=== PATIENT | male | born 1985 | race Caucasian/White ===

== ENCOUNTER → 2017-04-22 | Outpatient (CLI) | payer OTHER ==
--- NOTE | 2017-04-22 09:48 | US ---
EXAMINATION TYPE: US liver DATE OF EXAM: 04/22/2017 COMPARISON: NONE CLINICAL HISTORY: R94.5 ABN LIVER FUNCTIONS. EXAM MEASUREMENTS: Liver Length: 17.7 cm Gallbladder Wall: 0.2 cm CBD: 0.3 cm Right Kidney: 11.0 x 5.9 x 5.4 cm Pancreas: Obscured by bowel gas Liver: wnl Gallbladder: wnl Evidence for sonographic Goldberg's sign: no CBD: wnl Right Kidney: wnl The pancreas is obscured by overlying bowel gas on images saved. Visualized liver is unremarkable. Ga llbladder shows no shadowing mobile gallstones. IMPRESSION: No worrisome intrahepatic mass or intrahepatic ductal dilatation is seen.
== END | disposition home or self-care (01) ==
LOC: RADUSWWP 09:20
PROVIDERS: ATTEND Internal Medicine
DX: R94.5 Abnormal results of liver function studies (principal)
CPT/HCPCS: 76705

== ENCOUNTER → 2017-08-01 | Outpatient (CLI) | payer SELFPAY | END | disposition home or self-care (01) | LOC: RADXRMAIN 13:36 | PROVIDERS: ATTEND Internal Medicine Endocrinology, Diabetes & Metabolism | DX: Z53.9 Procedure and treatment not carried out, unspecified reason (principal) ==

== ENCOUNTER 2018-01-16 10:13 | Emergency (ER) | payer OTHER ==
[2018-01-16] MEDS ORDERED: ACETAMINOPHEN TAB 500 MG TAB PO STA (10:37)
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
--- NOTE | 2018-01-16 11:35 | XR ---
EXAMINATION TYPE: XR shoulder complete LT , 3 VIEWS DATE OF EXAM ORDERED: 01/16/2018 HISTORY: Pain. COMPARISON: None. FINDINGS: No fracture, dislocation or other acute osseous lesion is seen. IMPRESSION: NO ACUTE OSSEOUS LESION.
--- NOTE | 2018-01-16 11:35 | XR ---
EXAMINATION TYPE: XR chest 2V DATE OF EXAM ORDERED: 01/16/2018 HISTORY: Pain. REFERENCE: None. FINDINGS: The lungs are clear. Pleural spaces are clear. Heart size is normal. IMPRESSION: NORMAL CHEST.
--- NOTE | 2018-01-16 11:36 | XR ---
EXAMINATION TYPE: XR pelvis AP view , ONE VIEW DATE OF EXAM ORDERED: 01/16/2018 HISTORY: Pain. COMPARISON: None. FINDINGS: Osseous structures about the pelvis are normal. No fracture or dislocation is seen. Both h ip joints are maintained. There is some vascular calcification the left hemipelvis. IMPRESSION: NO ACUTE OSSEOUS LESION.
[2018-01-16 12:41] LABS: Glucose,Whole Blood 113 mg/dL (75-99)
[2018-01-16 13:37] VITALS: BP 100/58; PULSE 94; RESP 20; TEMP 97.8
== END 2018-01-16 13:43 | disposition home or self-care (01) ==
LOC: EC 10:13
DX: S13.4XXA Sprain of ligaments of cervical spine, initial encounter (principal); R07.9 Chest pain, unspecified; M25.512 Pain in left shoulder; E10.40 Type 1 diabetes mellitus with diabetic neuropathy, unspecified; F17.200 Nicotine dependence, unspecified, uncomplicated; Z88.0 Allergy status to penicillin; V43.63XA Car passenger injured in collision with pick-up truck in traffic accident, initial encounter; Y92.89 Other specified places as the place of occurrence of the external cause
CPT/HCPCS: 36415; 71046; 72170; 99284

== ENCOUNTER 2018-03-17 01:53 | Inpatient (IN) | payer OTHER ==
[2018-03-17] MEDS ORDERED: SODIUM CHLORIDE 0.9% 2,000 ML IV STA (02:19)
[2018-03-17 02:36] LABS: Glucose,Whole Blood >600 mg/dL (75-99)
[2018-03-17 03:01] LABS: ALT 33 U/L (21-72); AST 32 U/L (17-59); Alkaline Phosphatase 127 U/L (38-126); Blood Urea Nitrogen 38 mg/dL (9-20); Calcium 9.6 mg/dL (8.4-10.2); Chloride 83 mmol/L (98-107); Lipase 11 U/L (23-300); Magnesium 2.3 mg/dL (1.6-2.3); Sodium 128 mmol/L (137-145); Total Bilirubin 0.8 mg/dL (0.2-1.3)
--- NOTE | 2018-03-17 03:02 | ED ---
Nausea/Vomiting/Diarrhea HPI - General Chief complaint: Nausea/Vomiting/Diarrhea Stated complaint: Nausea, Vomiting Time Seen by Provider: 03/17/18 02:16 Source: EMS Mode of arrival: EMS Limitations: no limitations - History of Present Illness Initial comments: Paxton is a 32-year-old insulin-dependent type 1 diabetic male who presents the ER today for evaluation of 2 days of nausea, vomiting and diarrhea. Upon arrival Paxton is lying in position clearly uncomfortable and most of the history is provided by his and mother at bedside. The patient was diagnosed as type 1 insulin-dependent diabetic at the age of 12. He is very well controlled and usually wears an insulin pump. Apparently 2 days ago the patient's cousin came to visit and he was experiencing an acute GI illness. Multiple family members subsequently developed similar symptoms including Paxton. Paxton reports he is nauseated and vomiting all day yesterday unable to keep any solids or liquids down. Today while vomiting his insulin pump became disconnected but he was not concerned because he has not eaten in over 36 hours. Throughout the evening he progressively worsened. He denies, have vomiting, diarrhea. He continued to be unable to hold down any by mouth intake. Family became concerned because he does have a history of DKA most recently was over a year and half ago so they called 911 for transport to the hospital. Upon EMS arrival the patient [id number] blood glucose was over 500. - Related Data Previous Rx's Medication Instructions Recorded Hydrocodone/Acetaminophen [[place] 1 each PO Q6HR PRN #10 tab 07/27/14 5-325] Cephalexin [Keflex] 500 mg PO Q6HR #20 cap 07/28/14 Ibuprofen [Motrin] 800 mg PO TID #21 tab 01/16/18 Allergies Allergy/AdvReac Type Severity Reaction Status Date / Time Penicillins Allergy Unknown Verified 03/17/18 02:13 Review of Systems ROS Statement: Those systems with pertinent positive or pertinent negative responses have been documented in the HPI. ROS Other: All systems not noted in ROS Statement are negative. Past Medical History Past Medical History: Diabetes Mellitus, Hypertension History of Any Multi-Drug Resistant Organisms: None Reported Past Surgical History: Tonsillectomy Additional Past Surgical History / Comment(s): facial reconstruction, Past Psychological History: Anxiety, Bipolar, Depression Smoking Status: Current every day smoker Past Alcohol Use History: None Reported Past Drug Use History: None Reported General Exam - General Exam Comments Initial Comments: Physical Exam GENERAL: Patient appears uncomfortable, is lying in position, rapid deep breathing consistent with [place] respirations, diaphoretic HENT: Normocephalic, Atraumatic. EYES: PERRL, EOMI PULMONARY: [place] respirations CARDIOVASCULAR: Tachycardic, regular ABDOMEN: Soft and nontender with normal bowel sounds. SKIN: Diaphoretic : Deferred NEUROLOGIC: Patient is alert and oriented x3. Moving all extremities spontaneously MUSCULOSKELETAL: Normal extremities with adequate strength and full range of motion. No lower extremity swelling or edema. No calf tenderness. PSYCHIATRIC: Normal psychiatric evaluation. Limitations: no limitations Limitations: no limitations Course Vital Signs 03/17/18 02:10 Temperature 98.3 F Pulse Rate 126 H Respiratory 18 Rate Blood Pressure 129/76 O2 Sat by Pulse 100 Oximetry Medical Decision Making - Medical Decision Making The patient was seen and evaluated immediately upon arrival to the emergency department, given the patient's history and physical exam I have a significant concern that the patient is in DKA Initial [id number] glucose is greater than 600 DKA labs were ordered 2 L IV fluid bolus was ordered Labs resulted, consistent with DKA. Patient has pseudohyponatremia, elevated anion gap with a gap of greater than 40, glucose of greater than 800, bicarb and detectable An additional 1 L bolus was ordered as well as fluids at 200 mL/h Insulin bolus and infusion were ordered DKA order set was ordered VBG did reveal a pH of 7.1 pCO2 of 18 and bicarb of 6 which again is consistent with the patient's diagnosis of DKA Patient care was discussed with the process development chemist Dr. Perez who agrees with plan for admission to the ICU for DKA - Lab Data Result diagrams: 03/17/18 02:35 03/17/18 02:35 Lab Results 03/17/18 03/17/18 03/17/18 Range/Units 02:27 02:35 02:35 WBC 25.3 H (3.8-10.6) k/uL RBC 5.20 (4.30-5.90) m/uL Hgb 15.5 (13.0-17.5) gm/dL Hct 53.9 H (39.0-53.0) % MCV 103.7 H (80.0-100.0) fL MCH 29.7 (25.0-35.0) pg MCHC 28.7 L (31.0-37.0) g/dL RDW 13.4 (11.5-15.5) % Plt Count 285 (150-450) k/uL Neutrophils % 91 % Lymphocytes % 3 % Monocytes % 5 % Eosinophils % 0 % Basophils % 0 % Neutrophils # 23.0 H (1.3-7.7) k/uL Lymphocytes # 0.8 L (1.0-4.8) k/uL Monocytes # 1.3 H (0-1.0) k/uL Eosinophils # 0.0 (0-0.7) k/uL Basophils # 0.1 (0-0.2) k/uL Hypochromasia Marked Macrocytosis Slight VBG pH (7.31-7.41) VBG pCO2 (37-51) mmHg VBG HCO3 (24-28) mmol/L Sodium 128 L (137-145) mmol/L Potassium 6.3 H* (3.5-5.1) mmol/L Chloride 83 L (98-107) mmol/L Carbon Dioxide <5 L* (22-30) mmol/L Anion Gap mmol/L BUN 38 H (9-20) mg/dL Creatinine 1.68 H (0.66-1.25) mg/dL Est GFR (CKD-EPI)AfAm 61 (>60 ml/min/1.73 sqM) Est GFR (CKD-EPI)NonAf 53 (>60 ml/min/1.73 sqM) Glucose 821 H* (74-99) mg/dL POC Glucose (mg/dL) >600 H (75-99) mg/dL POC Glu Chainstitch Felled Seam Operator ID Siria Lanza Osmolality 334 H* (280-301) mosm/kg Calcium 9.6 (8.4-10.2) mg/dL Magnesium 2.3 (1.6-2.3) mg/dL Total Bilirubin 0.8 (0.2-1.3) mg/dL AST 32 (17-59) U/L ALT 33 (21-72) U/L Alkaline Phosphatase 127 H (38-126) U/L Total Protein 8.0 (6.3-8.2) g/dL Albumin 5.0 (3.5-5.0) g/dL Lipase 11 L (23-300) U/L Urine Color Urine Appearance (Clear) Urine pH (5.0-8.0) Ur Specific [place] (1.001-1.035) Urine Protein (Negative) Urine Glucose (UA) (Negative) Urine Ketones (Negative) Urine Blood (Negative) Urine Nitrite (Negative) Urine Bilirubin (Negative) Urine Urobilinogen (<2.0) mg/dL Ur Leukocyte Esterase (Negative) Acetone, Qual Positive (Negative) 03/17/18 03/17/18 Range/Units 03:36 04:04 WBC (3.8-10.6) k/uL RBC (4.30-5.90) m/uL Hgb (13.0-17.5) gm/dL Hct (39.0-53.0) % MCV (80.0-100.0) fL MCH (25.0-35.0) pg MCHC (31.0-37.0) g/dL RDW (11.5-15.5) % Plt Count (150-450) k/uL Neutrophils % % Lymphocytes % % Monocytes % % Eosinophils % % Basophils % % Neutrophils # (1.3-7.7) k/uL Lymphocytes # (1.0-4.8) k/uL Monocytes # (0-1.0) k/uL Eosinophils # (0-0.7) k/uL Basophils # (0-0.2) k/uL Hypochromasia Macrocytosis VBG pH 7.18 L* (7.31-7.41) VBG pCO2 18 L* (37-51) mmHg VBG HCO3 6 L* (24-28) mmol/L Sodium (137-145) mmol/L Potassium (3.5-5.1) mmol/L Chloride (98-107) mmol/L Carbon Dioxide (22-30) mmol/L Anion Gap mmol/L BUN (9-20) mg/dL Creatinine (0.66-1.25) mg/dL Est GFR (CKD-EPI)AfAm (>60 ml/min/1.73 sqM) Est GFR (CKD-EPI)NonAf (>60 ml/min/1.73 sqM) Glucose (74-99) mg/dL POC Glucose (mg/dL) (75-99) mg/dL POC Glu Chainstitch Felled Seam Operator ID Osmolality ([id number]) mosm/kg Calcium (8.4-10.2) mg/dL Magnesium (1.6-2.3) mg/dL Total Bilirubin (0.2-1.3) mg/dL AST (17-59) U/L ALT (21-72) U/L Alkaline Phosphatase (38-126) U/L Total Protein (6.3-8.2) g/dL Albumin (3.5-5.0) g/dL Lipase (23-300) U/L Urine Color Colorless Urine Appearance Clear (Clear) Urine pH 5.0 (5.0-8.0) Ur Specific [place] 1.016 (1.001-1.035) Urine Protein Negative (Negative) Urine Glucose (UA) 4+ H (Negative) Urine Ketones 3+ H (Negative) Urine Blood Negative (Negative) Urine Nitrite Negative (Negative) Urine Bilirubin Negative (Negative) Urine Urobilinogen <2.0 (<2.0) mg/dL Ur Leukocyte Esterase Negative (Negative) Acetone, Qual (Negative) - EKG Data -: EKG Interpreted by Me EKG Comments: EKG was obtained at 2:23 AM, rate is 127, rhythm is sinus tach, Critical Care Time Critical Care Time: Yes Total Critical Care Time: 30 Disposition Clinical Impression: DKA, type 1, KAREEN (acute kidney injury), Nausea, vomiting and diarrhea Disposition: ADMITTED IP TO THIS [facility] Condition: Serious Referrals: Yasmeen Parrish MD [Primary Care Provider] - 1-2 days
[2018-03-17 03:11] LABS: Glucose 821 mg/dL (74-99); Potassium 6.3 mmol/L (3.5-5.1)
[2018-03-17 03:12] LABS: Carbon Dioxide <5 mmol/L (22-30)
[2018-03-17] MEDS ORDERED: ONDANSETRON 4 MG/2 ML VIAL IVP STA ×2 (03:12→07:06)
[2018-03-17] MEDS ORDERED: INSULIN REGULAR BOLUS (FROM DRIP BAG) IV ONE (03:15)
[2018-03-17] MEDS ORDERED: SODIUM CHLORIDE 0.9% 1,000 ML IV ONE (03:17)
[2018-03-17 03:43] LABS: Basophils # (A) 0.1 k/uL (0-0.2); Basophils % (A) 0 %; Eosinophils % (A) 0 %; HCT 53.9 % (39.0-53.0); HGB 15.5 gm/dL (13.0-17.5); Hypochromasia Marked; Lymphocytes # (A) 0.8 k/uL (1.0-4.8); Lymphocytes % (A) 3 %; MCH 29.7 pg (25.0-35.0); MCHC 28.7 g/dL (31.0-37.0); MCV 103.7 fL (80.0-100.0); Macrocytosis Slight; Mean Platelet Volume 10.4; Monocytes # (A) 1.3 k/uL (0-1.0); Monocytes % (A) 5 %; Neutrophils % (A) 91 %; Platelet Count 285 k/uL (150-450); RDW 13.4 % (11.5-15.5); WBC 25.3 k/uL (3.8-10.6)
[2018-03-17] MEDS ORDERED: MORPHINE SULFATE 4 MG/ML SYRINGE IVP STA (03:46)
[2018-03-17] MEDS: INSULIN REGULAR 100 UNIT in SODIUM CHLORIDE 0.9% 100 ML IV SCH ×2 (03:54→14:15)
[2018-03-17 04:00] LABS: Appearance,Urine Clear (Clear); Bilirubin,Urine Negative (Negative); Blood,Urine Negative (Negative); Color,Urine Colorless; Glucose,Urine (UA) 4+ (Negative); Leukocyte Esterase,Urine Negative (Negative); Nitrite,Urine Negative (Negative); Protein,Urine Negative (Negative); Specific Gravity,Urine 1.016 (1.001-1.035); Urobilinogen,Urine <2.0 mg/dL (<2.0)
[2018-03-17 04:26] LABS: VBG PH 7.18 (7.31-7.41)
[2018-03-17 04:29] LABS: Ketones,Urine 3+ (Negative)
[2018-03-17 04:50] LABS: Glucose,Whole Blood >600 mg/dL (75-99)
[2018-03-17] MEDS: SODIUM CHLORIDE 0.9% 1,000 ML IV SCH ×2 (05:27→10:35)
[2018-03-17 05:54] LABS: Glucose,Whole Blood 549 mg/dL (75-99)
[2018-03-17 06:50] LABS: Glucose,Whole Blood 440 mg/dL (75-99)
[2018-03-17 07:16] LABS: Phosphorus 3.2 mg/dL (2.5-4.5); Potassium 4.5 mmol/L (3.5-5.1)
[2018-03-17 08:01] LABS: Glucose,Whole Blood 367 mg/dL (75-99)
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
[2018-03-17] MEDS ORDERED: NALOXONE 0.4 MG/ML 1 ML VIAL IV PRN (08:47)
[2018-03-17 09:04] LABS: Glucose,Whole Blood 306 mg/dL (75-99)
[2018-03-17] MEDS: HEPARIN SODIUM,PORCINE 5,000 UNIT/ML 1 ML VIAL SQ SCH ×3 (09:24→23:45)
[2018-03-17] MEDS: PANTOPRAZOLE 40 MG/10 ML VIAL IV SCH (09:24)
[2018-03-17] MEDS ORDERED: INFLUENZA VACCINE (6 MOS+) 60 MCG/0.5 ML SYRINGE IM ONE (09:39)
[2018-03-17 10:17] LABS: Glucose,Whole Blood 256 mg/dL (75-99)
[2018-03-17] MEDS: D5-0.45% NACL WITH KCL 20MEQ/L 1,000 ML IV SCH ×4 (10:18→22:40)
[2018-03-17 11:24] LABS: Glucose,Whole Blood 217 mg/dL (75-99)
[2018-03-17 12:01] LABS: Anion Gap 15 mmol/L; Blood Urea Nitrogen 31 mg/dL (9-20); Carbon Dioxide 18 mmol/L (22-30); Chloride 104 mmol/L (98-107); Glucose 241 mg/dL (74-99); Phosphorus 2.2 mg/dL (2.5-4.5); Potassium 4.2 mmol/L (3.5-5.1); Sodium 137 mmol/L (137-145)
[2018-03-17 12:07] LABS: Basophils % (A) 0 %; Eosinophils % (A) 0 %; HCT 41.1 % (39.0-53.0); HGB 13.2 gm/dL (13.0-17.5); Lymphocytes # (A) 1.3 k/uL (1.0-4.8); Lymphocytes % (A) 6 %; MCH 29.8 pg (25.0-35.0); MCHC 32.2 g/dL (31.0-37.0); Mean Platelet Volume 8.5; Monocytes # (A) 1.3 k/uL (0-1.0); Monocytes % (A) 6 %; Neutrophils # (A) 20.7 k/uL (1.3-7.7); Neutrophils % (A) 88 %; Platelet Count 278 k/uL (150-450); RBC 4.45 m/uL (4.30-5.90); RDW 13.2 % (11.5-15.5); WBC 23.4 k/uL (3.8-10.6)
[2018-03-17 12:09] LABS: Glucose,Whole Blood 198 mg/dL (75-99)
[2018-03-17] MEDS ORDERED: SODIUM PHOSPHATE 10 MMOL in SODIUM CHLORIDE 0.9% 250 ML IVPB ONE (12:09)
[2018-03-17] MEDS ORDERED: Phosphorus Replacement Protoco 1 EACH MISC MISCELLANE PRN (12:09)
[2018-03-17 12:12] LABS: MCV 92.3 fL (80.0-100.0)
[2018-03-17 12:59] LABS: Glucose,Whole Blood 180 mg/dL (75-99)
[2018-03-17] MEDS ORDERED: SODIUM GLYCEROPHOSPHATE 10 MMOL in SODIUM CHLORIDE 0.9% 250 ML IV ONE (13:00)
--- NOTE | 2018-03-17 13:36 | XR ---
EXAMINATION TYPE: XR KUB portable DATE OF EXAM: 03/17/2018 12:37 PM CLINICAL HISTORY: 01/16/2018 TECHNIQUE: Single supine KUB image of the abdomen is obtained. COMPARISON: None. FINDINGS: Scattered gas is seen in non-distended small bowel loops. Gas and fecal material is seen in non-distended colon. There is no visceromegaly, pneumoperitoneum, or abnormal calcification apprecia can. The lung bases are clear and the osseous structures are intact. IMPRESSION: Overall nonobstructive bowel gas pattern.
[2018-03-17] MEDS: ONDANSETRON 4 MG/2 ML VIAL IVP PRN ×2 (13:59→21:41)
[2018-03-17 14:14] LABS: Glucose,Whole Blood 148 mg/dL (75-99)
[2018-03-17 14:37] VITALS: BMI 21.9
[2018-03-17 14:40] LABS: Anion Gap 7 mmol/L; Blood Urea Nitrogen 26 mg/dL (9-20); Carbon Dioxide 23 mmol/L (22-30); Chloride 107 mmol/L (98-107); Glucose 150 mg/dL (74-99); Sodium 137 mmol/L (137-145)
[2018-03-17] MEDS ORDERED: INSULIN NPH 300 UNIT/3 ML VIAL SQ ONE (15:11)
[2018-03-17 15:12] LABS: Glucose,Whole Blood 123 mg/dL (75-99)
[2018-03-17] MEDS ORDERED: traMADol 50 MG TAB PO PRN (15:18)
[2018-03-17] MEDS ORDERED: IPRATROPIUM-ALBUTEROL 3 ML NEB INHALATION PRN (15:25)
[2018-03-17 15:56] LABS: Glucose,Whole Blood 112 mg/dL (75-99)
[2018-03-17] MEDS: GABAPENTIN 100 MG CAP PO SCH ×2 (16:19→21:18)
[2018-03-17 17:03] LABS: Glucose,Whole Blood 132 mg/dL (75-99)
[2018-03-17 17:50] LABS: Hemoglobin A1C 11.9 % (4.0-6.0)
[2018-03-17 17:58] LABS: Glucose,Whole Blood 144 mg/dL (75-99)
[2018-03-17] MEDS ORDERED: MORPHINE SULFATE 2 MG/ML SYRINGE IVP STA (18:42)
[2018-03-17] MEDS: INSULIN ASPART 100 UNIT/ML 1 ML 10 ML VIAL SQ SCH ×3 (18:49→21:17)
[2018-03-17 19:14] LABS: Glucose,Whole Blood 195 mg/dL (75-99)
[2018-03-17 20:16] LABS: Glucose,Whole Blood 208 mg/dL (75-99)
[2018-03-17] MEDS: AMITRIPTYLINE HCL 10 MG TAB PO SCH (20:27)
[2018-03-17] MEDS: INSULIN DETEMIR 100 UNIT/ML 10 ML VIAL SQ SCH (20:29)
[2018-03-17 21:28] LABS: Glucose,Whole Blood 232 mg/dL (75-99)
[2018-03-17] MEDS: KETOROLAC 30 MG/ML 1 ML VIAL IVP PRN (21:41)
--- NOTE | 2018-03-17 22:20 | P.HPIM ---
History of Present Illness This is a pleasant 52 years old male with past medical history of diabetes mellitus, insulin-dependent which is type I. Hypertension. And renal disease. Presents because of nausea vomiting and diarrhea 2 days duration and diffuse abdominal pain, mainly in the epigastric region. pt found to have diabetic ketoacidosis. he was admitted to the icu and started on insulin drip as per protocol , this mornign pt was still complaining from some abd pain . some nausea and vomiting however his , however he looks more calm , less distress, and better hydrated , his anion gap has closed and he was started on diet. pt states he was on insulin pump but it stopped working during this two days of sickness , he thinks it might be displaced while asleep . Review of Systems CONSTITUTIONAL: No fever, no malaise, no fatigue. HEENT: No recent visual problems or hearing problems. Denied any sore throat. CARDIOVASCULAR: No orthopnea, PND, no palpitations, no syncope. PULMONARY: No shortness of breath, no cough, no hemoptysis. GASTROINTESTINAL: No diarrhea, no nausea, no vomiting, no abdominal pain. Normoactive bowel sounds. NEUROLOGICAL: No headaches, no weakness, no numbness. HEMATOLOGICAL: Denies any bleeding or petechiae. GENITOURINARY: Denies any burning micturition, frequency, or urgency. MUSCULOSKELETAL/RHEUMATOLOGICAL: Denies any joint pain, swelling, or any muscle pain. ENDOCRINE: Denies any polyuria or polydipsia. Past Medical History Past Medical History: Diabetes Mellitus, Hypertension, Renal Disease Additional Past Medical History / Comment(s): Pt had recent upper respiratory infection and was on antibiotics/steroids for this, IDDM type I, past DKA about 1.5 yrs ago, neuropathy bilateral legs and runs up L side of body/L arm, hand and L side of face, L eye diabetic retinopathy, diabetic nephropathy-elevated urine protein, benign nasal polyp History of Any Multi-Drug Resistant Organisms: None Reported Past Surgical History: Tonsillectomy Additional Past Surgical History / Comment(s): Closed reduction nasal bone fracture with fixation septoplasty/open reduction L malary zygomatic arch fracture. Past Anesthesia/Blood Transfusion Reactions: No Reported Reaction Smoking Status: Current every day smoker - Past Family History Father Family Medical History: No Reported History Additional Family Medical History / Comment(s): Father is healthy Mother Family Medical History: Diabetes Mellitus Additional Family Medical History / Comment(s): Gastric ulcer, one leg shorter, neuropathy involving arms. Medications and Allergies Home Medications Medication Instructions Recorded Confirmed Type Albuterol Inhaler [Ventolin Hfa 2 puff INHALATION RT-QID 03/17/18 03/17/18 History Inhaler] Amitriptyline HCl [Elavil] 10 mg PO HS 03/17/18 03/17/18 History Insulin Glulisine [Apidra] 10 unit SQ TID 03/17/18 03/17/18 History Ipratropium [place] [Atrovent Hfa] 2 puff INHALATION RT-QID 03/17/18 03/17/18 History Loratadine [Claritin] 10 mg PO DAILY 03/17/18 03/17/18 History RX: Gabapentin [Neurontin] 100 mg PO TID 03/17/18 03/17/18 History RX: Lisinopril [Zestril] 5 mg PO DAILY 03/17/18 03/17/18 History RX: tiZANidine [Zanaflex] 4 mg PO DIRECTED PRN 03/17/18 03/17/18 History Zolpidem [Ambien] 10 mg PO HS PRN 03/17/18 03/17/18 History Allergies Allergy/AdvReac Type Severity Reaction Status Date / Time Penicillins Allergy Unknown Verified 03/17/18 09:34 Physical Exam Vitals: Vital Signs Temp Pulse Resp BP Pulse Ox 03/17/18 13:00 100 18 108/69 96 03/17/18 12:00 97.9 F 104 H 17 103/73 95 03/17/18 11:00 103 H 15 114/74 96 03/17/18 10:00 105 H 17 106/62 95 03/17/18 09:00 106 H 21 115/65 95 03/17/18 08:00 98.5 F 109 H 16 115/65 98 03/17/18 07:00 112 H 9 L 122/75 95 03/17/18 06:50 116 H 19 122/75 97 03/17/18 06:40 112 H 9 L 118/67 97 03/17/18 06:30 113 H 10 L 114/71 97 03/17/18 06:20 114 H 13 114/71 97 03/17/18 06:10 112 H 22 120/77 97 03/17/18 06:00 114 H 22 122/79 99 03/17/18 05:50 115 H 21 122/79 97 03/17/18 05:40 117 H 22 137/84 98 03/17/18 05:20 120 H 43 H 111/62 98 03/17/18 05:10 122 H 24 116/58 97 03/17/18 05:00 122 H 16 118/68 97 03/17/18 04:50 123 H 12 118/68 97 03/17/18 04:40 125 H 16 123/78 98 03/17/18 04:20 125 H 19 117/60 98 03/17/18 04:14 126 H 16 98 03/17/18 02:10 98.3 F 126 H 18 129/76 100 Intake and Output 03/16/18 03/17/18 03/17/18 22:59 06:59 14:59 Intake Total 7.476 1097.039 Output Total 2024 Balance 7.476 -927.961 Intake: IV 1050 D5-0.45% NaCl with KCl 450 20Meq/l 1,000 ml @ 150 mls/hr IV .Q6H40M [facility] Rx# :[id number] Sodium Chloride 0.9% 1, 600 000 ml @ 200 mls/hr IV . Q5H [facility] Rx#:[id number] Intake, IV Titration 7.476 47.039 Amount Insulin Regular 100 unit 7.476 47.039 In Sodium Chloride 0.9% 100 ml @ 0.1 UNITS/KG/HR 8.01 mls/hr IV .[id number] [facility] Rx#:[id number] Output: Urine 2024 Other: Weight 79.379 kg GENERAL: The patient is alert and oriented x3, not in any acute distress. Well developed, well nourished. HEENT: Pupils are round and equally reacting to light. EOMI. No scleral icterus. No conjunctival pallor. Normocephalic, atraumatic. No pharyngeal erythema. No thyromegaly. CARDIOVASCULAR: S1 and S2 present. No murmurs, rubs, or gallops. PULMONARY: Chest is clear to auscultation, no wheezing or crackles. -ABDOMEN: Soft, mild generalized abd tenderness mainl in the epigastrium . nondistended, normoactive bowel sounds. No palpable organomegaly. MUSCULOSKELETAL: No joint swelling or deformity. EXTREMITIES: No cyanosis, clubbing, or pedal edema. NEUROLOGICAL: Gross neurological examination did not reveal any focal deficits. SKIN: No rashes. Results CBC & Chem 7: 03/17/18 10:41 03/17/18 14:16 Labs: Abnormal Lab Results - Last 24 Hours (Table) 03/17/18 03/17/18 03/17/18 Range/Units 02:27 02:35 02:35 WBC 25.3 H (3.8-10.6) k/uL Hct 53.9 H (39.0-53.0) % MCV 103.7 H (80.0-100.0) fL MCHC 28.7 L (31.0-37.0) g/dL Neutrophils # 23.0 H (1.3-7.7) k/uL Lymphocytes # 0.8 L (1.0-4.8) k/uL Monocytes # 1.3 H (0-1.0) k/uL VBG pH (7.31-7.41) VBG pCO2 (37-51) mmHg VBG HCO3 (24-28) mmol/L Sodium 128 L (137-145) mmol/L Potassium 6.3 H* (3.5-5.1) mmol/L Chloride 83 L (98-107) mmol/L Carbon Dioxide <5 L* (22-30) mmol/L BUN 38 H (9-20) mg/dL Creatinine 1.68 H (0.66-1.25) mg/dL Glucose 821 H* (74-99) mg/dL POC Glucose (mg/dL) >600 H (75-99) mg/dL Osmolality 334 H* (280-301) mosm/kg Calcium (8.4-10.2) mg/dL Phosphorus (2.5-4.5) mg/dL Alkaline Phosphatase 127 H (38-126) U/L Lipase 11 L (23-300) U/L Urine Glucose (UA) (Negative) Urine Ketones (Negative) 03/17/18 03/17/18 03/17/18 Range/Units 03:36 04:04 04:49 WBC (3.8-10.6) k/uL Hct (39.0-53.0) % MCV (80.0-100.0) fL MCHC (31.0-37.0) g/dL Neutrophils # (1.3-7.7) k/uL Lymphocytes # (1.0-4.8) k/uL Monocytes # (0-1.0) k/uL VBG pH 7.18 L* (7.31-7.41) VBG pCO2 18 L* (37-51) mmHg VBG HCO3 6 L* (24-28) mmol/L Sodium (137-145) mmol/L Potassium (3.5-5.1) mmol/L Chloride (98-107) mmol/L Carbon Dioxide (22-30) mmol/L BUN (9-20) mg/dL Creatinine (0.66-1.25) mg/dL Glucose (74-99) mg/dL POC Glucose (mg/dL) >600 H (75-99) mg/dL Osmolality (280-301) mosm/kg Calcium (8.4-10.2) mg/dL Phosphorus (2.5-4.5) mg/dL Alkaline Phosphatase (38-126) U/L Lipase (23-300) U/L Urine Glucose (UA) 4+ H (Negative) Urine Ketones 3+ H (Negative) 03/17/18 03/17/18 03/17/18 Range/Units 05:43 06:36 06:49 WBC (3.8-10.6) k/uL Hct (39.0-53.0) % MCV (80.0-100.0) fL MCHC (31.0-37.0) g/dL Neutrophils # (1.3-7.7) k/uL Lymphocytes # (1.0-4.8) k/uL Monocytes # (0-1.0) k/uL VBG pH (7.31-7.41) VBG pCO2 (37-51) mmHg VBG HCO3 (24-28) mmol/L Sodium 134 L (137-145) mmol/L Potassium (3.5-5.1) mmol/L Chloride (98-107) mmol/L Carbon Dioxide 9 L* (22-30) mmol/L BUN 36 H (9-20) mg/dL Creatinine 1.30 H (0.66-1.25) mg/dL Glucose 488 H (74-99) mg/dL POC Glucose (mg/dL) 549 H 440 H (75-99) mg/dL Osmolality (280-301) mosm/kg Calcium (8.4-10.2) mg/dL Phosphorus (2.5-4.5) mg/dL Alkaline Phosphatase (38-126) U/L Lipase (23-300) U/L Urine Glucose (UA) (Negative) Urine Ketones (Negative) 03/17/18 03/17/18 03/17/18 Range/Units 07:57 09:00 09:58 WBC (3.8-10.6) k/uL Hct (39.0-53.0) % MCV (80.0-100.0) fL MCHC (31.0-37.0) g/dL Neutrophils # (1.3-7.7) k/uL Lymphocytes # (1.0-4.8) k/uL Monocytes # (0-1.0) k/uL VBG pH (7.31-7.41) VBG pCO2 (37-51) mmHg VBG HCO3 (24-28) mmol/L Sodium (137-145) mmol/L Potassium (3.5-5.1) mmol/L Chloride (98-107) mmol/L Carbon Dioxide (22-30) mmol/L BUN (9-20) mg/dL Creatinine (0.66-1.25) mg/dL Glucose (74-99) mg/dL POC Glucose (mg/dL) 367 H 306 H 256 H (75-99) mg/dL Osmolality (280-301) mosm/kg Calcium (8.4-10.2) mg/dL Phosphorus (2.5-4.5) mg/dL Alkaline Phosphatase (38-126) U/L Lipase (23-300) U/L Urine Glucose (UA) (Negative) Urine Ketones (Negative) 03/17/18 03/17/18 03/17/18 Range/Units 10:41 10:41 11:08 WBC 23.4 H (3.8-10.6) k/uL Hct (39.0-53.0) % MCV (80.0-100.0) fL MCHC (31.0-37.0) g/dL Neutrophils # 20.7 H (1.3-7.7) k/uL Lymphocytes # (1.0-4.8) k/uL Monocytes # 1.3 H (0-1.0) k/uL VBG pH (7.31-7.41) VBG pCO2 (37-51) mmHg VBG HCO3 (24-28) mmol/L Sodium (137-145) mmol/L Potassium (3.5-5.1) mmol/L Chloride (98-107) mmol/L Carbon Dioxide 18 L (22-30) mmol/L BUN 31 H (9-20) mg/dL Creatinine (0.66-1.25) mg/dL Glucose 241 H (74-99) mg/dL POC Glucose (mg/dL) 217 H (75-99) mg/dL Osmolality (280-301) mosm/kg Calcium 8.0 L (8.4-10.2) mg/dL Phosphorus 2.2 L (2.5-4.5) mg/dL Alkaline Phosphatase (38-126) U/L Lipase (23-300) U/L Urine Glucose (UA) (Negative) Urine Ketones (Negative) 03/17/18 03/17/18 Range/Units 11:55 12:57 WBC (3.8-10.6) k/uL Hct (39.0-53.0) % MCV (80.0-100.0) fL MCHC (31.0-37.0) g/dL Neutrophils # (1.3-7.7) k/uL Lymphocytes # (1.0-4.8) k/uL Monocytes # (0-1.0) k/uL VBG pH (7.31-7.41) VBG pCO2 (37-51) mmHg VBG HCO3 (24-28) mmol/L Sodium (137-145) mmol/L Potassium (3.5-5.1) mmol/L Chloride (98-107) mmol/L Carbon Dioxide (22-30) mmol/L BUN (9-20) mg/dL Creatinine (0.66-1.25) mg/dL Glucose (74-99) mg/dL POC Glucose (mg/dL) 198 H 180 H (75-99) mg/dL Osmolality (280-301) mosm/kg Calcium (8.4-10.2) mg/dL Phosphorus (2.5-4.5) mg/dL Alkaline Phosphatase (38-126) U/L Lipase (23-300) U/L Urine Glucose (UA) (Negative) Urine Ketones (Negative) Thrombosis Risk Factor Assmnt - Choose All That Apply Any of the Below Risk Factors Present?: No Other Risk Factors: No Other congenital or acquired thrombophilia - If yes, enter type in comment: No Thrombosis Risk Factor Assessment Level: Very Low Risk Assessment and Plan Assessment: Diabetic ketoacidosis Insulin-dependent diabetes mellitus History of essential hypertension Acute kidney injury Dehydration Plan: This is a pleasant 52 years old male presents with diabetic ketoacidosis. Patient was admitted to the ICU. Continue with insulin drip. Follow-up in urine And electrolytes. Pulmonary/critical care consult R following the patient. Labs and medication were reviewed.. Continue same treatment. Continue with symptomatic treatment. Resume home medication. Monitor lytes and vitals. DVT and GI prophylaxis. Further recommendations of the clinical course of the patient DVT prophylaxis: Subcutaneous heparin GI Prophylaxis: Protonix PT/OT: Pending Prognosis is guarded
[2018-03-17 23:06] LABS: Glucose,Whole Blood 208 mg/dL (75-99)
[2018-03-17 23:31] LABS: Anion Gap 11 mmol/L; Blood Urea Nitrogen 18 mg/dL (9-20); Carbon Dioxide 19 mmol/L (22-30); Chloride 104 mmol/L (98-107); Phosphorus 2.2 mg/dL (2.5-4.5); Potassium 4.2 mmol/L (3.5-5.1); Sodium 134 mmol/L (137-145)
[2018-03-18 00:23] LABS: Glucose,Whole Blood 226 mg/dL (75-99)
[2018-03-18 03:51] LABS: Glucose,Whole Blood 195 mg/dL (75-99)
[2018-03-18 06:11] LABS: Basophils % (A) 0 %; Eosinophils % (A) 0 %; HCT 40.2 % (39.0-53.0); HGB 13.2 gm/dL (13.0-17.5); Lymphocytes # (A) 1.1 k/uL (1.0-4.8); Lymphocytes % (A) 6 %; MCH 29.9 pg (25.0-35.0); MCHC 32.7 g/dL (31.0-37.0); MCV 91.5 fL (80.0-100.0); Mean Platelet Volume 7.8; Monocytes # (A) 0.9 k/uL (0-1.0); Monocytes % (A) 5 %; Neutrophils # (A) 17.9 k/uL (1.3-7.7); Neutrophils % (A) 89 %; Platelet Count 240 k/uL (150-450); RBC 4.39 m/uL (4.30-5.90); RDW 13.3 % (11.5-15.5); WBC 20.3 k/uL (3.8-10.6)
[2018-03-18 06:12] LABS: Glucose,Whole Blood 184 mg/dL (75-99)
[2018-03-18] MEDS: ONDANSETRON 4 MG/2 ML VIAL IVP PRN ×3 (06:23→22:12)
[2018-03-18 06:31] LABS: Anion Gap 7 mmol/L; Blood Urea Nitrogen 16 mg/dL (9-20); Calcium 8.1 mg/dL (8.4-10.2); Carbon Dioxide 23 mmol/L (22-30); Chloride 105 mmol/L (98-107); Glucose 182 mg/dL (74-99); Magnesium 2.2 mg/dL (1.6-2.3); Phosphorus 1.7 mg/dL (2.5-4.5); Potassium 4.3 mmol/L (3.5-5.1); Sodium 135 mmol/L (137-145)
[2018-03-18] MEDS: INSULIN ASPART 100 UNIT/ML 1 ML 10 ML VIAL SQ SCH ×7 (06:40→21:25)
[2018-03-18] MEDS: HEPARIN SODIUM,PORCINE 5,000 UNIT/ML 1 ML VIAL SQ SCH ×3 (09:27→23:46)
[2018-03-18] MEDS: KETOROLAC 30 MG/ML 1 ML VIAL IVP PRN ×3 (09:27→22:12)
[2018-03-18] MEDS: PANTOPRAZOLE 40 MG/10 ML VIAL IV SCH (09:28)
[2018-03-18] MEDS: LISINOPRIL 5 MG TAB PO SCH (09:28)
[2018-03-18] MEDS: GABAPENTIN 100 MG CAP PO SCH ×3 (09:28→21:24)
[2018-03-18] MEDS: LORATADINE 10 MG TAB PO SCH (09:28)
--- NOTE | 2018-03-18 10:10 | P.PN ---
Subjective Progress Note Date: 03/18/18 Principal diagnosis: Acute diabetic ketoacidosis This is a 32-year-old white male patient of Dr. Parrish, with history of type 1 diabetes diagnosed at age 12, presents to the emergency department 3:00 in the morning with 2 day history complaints of nausea, vomiting, diarrhea, fever, chills. Patient is complaining of diffuse abdominal pain, in the epigastric region. Yesterday patient was at work when he started vomiting. His little cousin had been visiting and had a cough, vomiting. Patient also noticed increased urination, unable to keep food down. Patient's insulin pump became disconnected, and apparently patient was not concerned as he hadn't eaten in 36 hours. Denied any difficulty breathing, denied any chest pain. 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 Medical history includes retinopathy in the right eye, bipolar disorder, insomnia, and neuropathy. Patient does have history of DKA a year ago, he was concern, and called 911 for transport to the hospital. Blood glucose was over 500 emergency department. White count was 25.3, hemoglobin of 15.5, sodium is 128, potassium 6.3, chloride is 83, CO2 was less than 5, anion gap of 25, BUN 38, creatinine is 1.68, serum glucose of 821, osmolality of 334, alkaline phosphatase was 127, lipase was 11, urinalysis showed 4+ glucose and 3+ ketones, serum acetone was positive. Venous blood gas showed pH of 7.18, pCO2 of 18. Patient was given 2 L of IV boluses 0.9 normal saline, he was started on insulin infusion DKA protocol. His maintenance IV fluid 0.9 normal saline at 200 ML per hour. Patient was admitted to the intensive care unit. He is resting in bed, awake and alert, responding appropriately, sinus tachycardia on the monitor with a rate of 112 BPM, afebrile, room air pulse ox is 98%, hemodynamically stable. Appears slightly pale and fatigued, but in no acute distress. He is a current smoker, a pack a day every 3 days, denies any EtOH history, no history of recreational drug use, no marijuana. On 03/18/2018 patient seen in follow-up in the intensive care unit, he is awake and alert, still has nausea and vomiting, unable to tolerate clear liquid diet, receiving Zofran with not much improvement. No diarrhea. No shortness of breath no chest pain. Today's lab work showed WBC of 20.3, hemoglobin of 13.2, sodium is 135, the rest of electrolytes and renal profile were within normal limits, anion gap has closed, and is currently at 7, CO2 is 23. Afebrile , slightly tachycardic with a rate of 102 BPM. IV fluid is D5 half-normal saline with 20 ML every of potassium at a rate of 50 ml per hour. No other drips. Influenza screen was negative. Yesterday abdominal x-ray showed nonobstructive bowel gas pattern. Blood cultures are negative thus far. Lung sounds are clear to auscultation. Objective - Vital Signs Vital signs: Vital Signs Temp 97.9 F 03/17/18 16:00 Pulse 101 H 03/18/18 07:00 Resp 23 03/18/18 07:00 BP 109/67 03/18/18 07:00 Pulse Ox 96 03/18/18 07:00 Intake & Output 03/17/18 03/18/18 03/18/18 18:59 06:59 18:59 Intake Total 2088.960 987.50 Output Total 2025 1270 Balance 63.960 -282.50 Weight 79.379 kg 76.2 kg Intake: IV 1862.50 987.50 D5-0.45% NaCl with KCl 1200 300 20Meq/l 1,000 ml @ 150 mls/hr IV .Q6H40M [facility] Rx# :[id number] D5-0.45% NaCl with KCl 500 20Meq/l 1,000 ml @ 50 mls /hr IV .Q20H [facility] Rx#: [id number] Sodium Chloride 0.9% 1, 600 000 ml @ 200 mls/hr IV . Q5H [facility] Rx#:[id number] Sodium Glycerophosphate 62.50 187.50 10 mmol In Sodium Chloride 0.9% 250 ml @ 31 .25 mls/hr IV ONCE ONE Rx #:[id number] Intake, IV Titration 106.460 Amount Insulin Regular 100 unit 106.460 In Sodium Chloride 0.9% 100 ml @ 0.1 UNITS/KG/HR 8.01 mls/hr IV .Q83V13N [facility] Rx#:[id number] Oral 120 Output: Urine 2024 1269 - Exam GENERAL EXAM: Alert, pleasant 32-year-old white male, slightly pale, and fatigued, nauseous, still having epigastric discomfort. Has multiple tattoos on his neck, face and arms, chest and back HEAD: Normocephalic/atraumatic. EYES: Normal reaction of pupils, equal size. Conjunctiva pink, sclera white. NOSE: Clear with pink turbinates. THROAT: No erythema or exudates. NECK: No masses, no JVD, no thyroid enlargement, no adenopathy. CHEST: No chest wall deformity. Symmetrical expansion. LUNGS: Equal air entry with no crackles, wheeze, rhonchi or dullness. CVS: Regular rate and rhythm, normal S1 and S2, no gallops, no murmurs, no rubs ABDOMEN: Soft, with tenderness in the epigastric area. No hepatosplenomegaly, normal bowel sounds, no guarding or rigidity. EXTREMITIES: No clubbing, no edema, no cyanosis, 2+ pulses and upper and lower extremities. MUSCULOSKELETAL: Muscle strength and tone normal. SPINE: No scoliosis or deformity SKIN: No rashes CENTRAL NERVOUS SYSTEM: Alert and oriented -3. No focal deficits, tone is normal in all 4 extremities. PSYCHIATRIC: Alert and oriented -3. Appropriate affect. Intact judgment and insight. - Labs CBC & Chem 7: 03/18/18 05:38 03/18/18 05:38 Labs: Abnormal Lab Results - Last 24 Hours (Table) 03/17/18 03/17/18 03/17/18 Range/Units 09:58 10:41 10:41 WBC 23.4 H (3.8-10.6) k/uL Neutrophils # 20.7 H (1.3-7.7) k/uL Monocytes # 1.3 H (0-1.0) k/uL Sodium (137-145) mmol/L Carbon Dioxide 18 L (22-30) mmol/L BUN 31 H (9-20) mg/dL Glucose 241 H (74-99) mg/dL POC Glucose (mg/dL) 256 H (75-99) mg/dL Hemoglobin A1c (4.0-6.0) % Calcium 8.0 L (8.4-10.2) mg/dL Phosphorus 2.2 L (2.5-4.5) mg/dL 03/17/18 03/17/18 03/17/18 Range/Units 10:41 11:08 11:55 WBC (3.8-10.6) k/uL Neutrophils # (1.3-7.7) k/uL Monocytes # (0-1.0) k/uL Sodium (137-145) mmol/L Carbon Dioxide (22-30) mmol/L BUN (9-20) mg/dL Glucose (74-99) mg/dL POC Glucose (mg/dL) 217 H 198 H (75-99) mg/dL Hemoglobin A1c 11.9 H (4.0-6.0) % Calcium (8.4-10.2) mg/dL Phosphorus (2.5-4.5) mg/dL 03/17/18 03/17/18 03/17/18 Range/Units 12:57 14:11 14:16 WBC (3.8-10.6) k/uL Neutrophils # (1.3-7.7) k/uL Monocytes # (0-1.0) k/uL Sodium (137-145) mmol/L Carbon Dioxide (22-30) mmol/L BUN 26 H (9-20) mg/dL Glucose 150 H (74-99) mg/dL POC Glucose (mg/dL) 180 H 148 H (75-99) mg/dL Hemoglobin A1c (4.0-6.0) % Calcium (8.4-10.2) mg/dL Phosphorus 2.0 L (2.5-4.5) mg/dL 03/17/18 03/17/18 03/17/18 Range/Units 15:09 15:54 16:59 WBC (3.8-10.6) k/uL Neutrophils # (1.3-7.7) k/uL Monocytes # (0-1.0) k/uL Sodium (137-145) mmol/L Carbon Dioxide (22-30) mmol/L BUN (9-20) mg/dL Glucose (74-99) mg/dL POC Glucose (mg/dL) 123 H 112 H 132 H (75-99) mg/dL Hemoglobin A1c (4.0-6.0) % Calcium (8.4-10.2) mg/dL Phosphorus (2.5-4.5) mg/dL 03/17/18 03/17/18 03/17/18 Range/Units 17:57 19:11 20:02 WBC (3.8-10.6) k/uL Neutrophils # (1.3-7.7) k/uL Monocytes # (0-1.0) k/uL Sodium (137-145) mmol/L Carbon Dioxide (22-30) mmol/L BUN (9-20) mg/dL Glucose (74-99) mg/dL POC Glucose (mg/dL) 144 H 195 H 208 H (75-99) mg/dL Hemoglobin A1c (4.0-6.0) % Calcium (8.4-10.2) mg/dL Phosphorus (2.5-4.5) mg/dL 03/17/18 03/17/18 03/17/18 Range/Units 21:03 22:40 22:50 WBC (3.8-10.6) k/uL Neutrophils # (1.3-7.7) k/uL Monocytes # (0-1.0) k/uL Sodium 134 L (137-145) mmol/L Carbon Dioxide 19 L (22-30) mmol/L BUN (9-20) mg/dL Glucose (74-99) mg/dL POC Glucose (mg/dL) 232 H 208 H (75-99) mg/dL Hemoglobin A1c (4.0-6.0) % Calcium (8.4-10.2) mg/dL Phosphorus 2.2 L (2.5-4.5) mg/dL 03/17/18 03/18/18 03/18/18 Range/Units 23:56 03:48 05:38 WBC 20.3 H (3.8-10.6) k/uL Neutrophils # 17.9 H (1.3-7.7) k/uL Monocytes # (0-1.0) k/uL Sodium (137-145) mmol/L Carbon Dioxide (22-30) mmol/L BUN (9-20) mg/dL Glucose (74-99) mg/dL POC Glucose (mg/dL) 226 H 195 H (75-99) mg/dL Hemoglobin A1c (4.0-6.0) % Calcium (8.4-10.2) mg/dL Phosphorus (2.5-4.5) mg/dL 03/18/18 03/18/18 Range/Units 05:38 06:09 WBC (3.8-10.6) k/uL Neutrophils # (1.3-7.7) k/uL Monocytes # (0-1.0) k/uL Sodium 135 L (137-145) mmol/L Carbon Dioxide (22-30) mmol/L BUN (9-20) mg/dL Glucose 182 H (74-99) mg/dL POC Glucose (mg/dL) 184 H (75-99) mg/dL Hemoglobin A1c (4.0-6.0) % Calcium 8.1 L (8.4-10.2) mg/dL Phosphorus 1.7 L (2.5-4.5) mg/dL Microbiology - Last 24 Hours (Table) 03/17/18 02:35 Blood Culture - Preliminary Blood No Growth after 24 hours Assessment and Plan Plan: Assessment: #1. Acute diabetic ketoacidosis #2. Dehydration related to nausea, vomiting, diarrhea, and polyuria #3. Febrile illness #4. Acute kidney injury #5. Anion gap metabolic acidosis related to DKA #6. Hyponatremia, likely hypovolemic, improving with fluid boluses of 0.9 normal saline #7. Leukocytosis #8. Diabetes mellitus type 1, on insulin pump, diagnosed at age 12 #9. His history of DKA #10. 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 Bipolar disorder #12. Insomnia Plan: Continue IV hydration, anion gap has closed, metabolic acidosis has resolved, patient is hemodynamically stable, blood culture is negative thus far, no fever no chills, lung sounds are clear, patient is having ongoing nausea and vomiting , still unable to tolerate any clear liquids, still having epigastric discomfort , we'll obtain lipase and amylase. Otherwise from pulmonary/critical care perspective patient is stable to transfer out of the intensive care unit today to general medical floor. Continue to follow. I performed a history & physical examination of the patient and discussed their management with my nurse practitioner, Rachelle Mcfadden. I reviewed the nurse practitioner's note and agree with the documented findings and plan of care. Lung sounds are clear. The findings and the impression was discussed with the patient. I attest to the documentation by the nurse practitioner. Time with Patient: Greater than 30
[2018-03-18 10:19] LABS: Amylase 36 U/L (30-110); Lipase 39 U/L (23-300)
[2018-03-18 12:18] LABS: Glucose,Whole Blood 129 mg/dL (75-99)
--- NOTE | 2018-03-18 14:14 | P.PN ---
Subjective This is a pleasant 52 years old male with past medical history of diabetes mellitus, insulin-dependent which is type I. Hypertension. And renal disease. Presents because of nausea vomiting and diarrhea 2 days duration and diffuse abdominal pain, mainly in the epigastric region. pt found to have diabetic ketoacidosis. he was admitted to the icu and started on insulin drip as per protocol , this mornign pt was still complaining from some abd pain . some nausea and vomiting however his , however he looks more calm , less distress, and better hydrated , his anion gap has closed and he was started on diet. pt states he was on insulin pump but it stopped working during this two days of sickness , he thinks it might be displaced while asleep . 03/18/2018 Patient complains of nausea and epigastric pain with no actual vomiting. Still has leukocytosis of 20 K. Patient any on As close to 7 today. Bicarb is 23. Sodium is 135. Sugar is running between 129 and 226. Lipase and amylase are within normal limits. Liver enzymes were unremarkable last time they were checked. UA is negative patient may be transferred out of the ICU to the general medical floor today. With his ongoing epigastric pain and we'll call GI consult. Objective - Vital Signs Vital signs: Vital Signs Temp 98.4 F 03/18/18 12:00 Pulse 97 03/18/18 12:00 Resp 18 03/18/18 12:00 BP 116/77 03/18/18 12:00 Pulse Ox 98 03/18/18 12:00 Intake & Output 03/17/18 03/18/18 03/18/18 18:59 06:59 18:59 Intake Total 2088.960 987.50 310 Output Total 5 1270 Balance 63.960 -282.50 310 Weight 79.379 kg 76.2 kg Intake: IV 1862.50 987.50 250 D5-0.45% NaCl with KCl 1200 300 20Meq/l 1,000 ml @ 150 mls/hr IV .Q6H40M [facility] Rx# :[id number] D5-0.45% NaCl with KCl 500 250 20Meq/l 1,000 ml @ 50 mls /hr IV .Q20H [facility] Rx#: [id number] Sodium Chloride 0.9% 1, 600 000 ml @ 200 mls/hr IV . Q5H [facility] Rx#:[id number] Sodium Glycerophosphate 62.50 187.50 10 mmol In Sodium Chloride 0.9% 250 ml @ 31 .25 mls/hr IV ONCE ONE Rx #:[id number] Intake, IV Titration 106.460 Amount Insulin Regular 100 unit 106.460 In Sodium Chloride 0.9% 100 ml @ 0.1 UNITS/KG/HR 8.01 mls/hr IV .[id number] [facility] Rx#:[id number] Oral 120 60 Output: Urine 202 1270 - Exam GENERAL: The patient is alert and oriented x3, not in any acute distress. Well developed, well nourished. HEENT: Pupils are round and equally reacting to light. EOMI. No scleral icterus. No conjunctival pallor. Normocephalic, atraumatic. No pharyngeal erythema. No thyromegaly. CARDIOVASCULAR: S1 and S2 present. No murmurs, rubs, or gallops. PULMONARY: Chest is clear to auscultation, no wheezing or crackles. -ABDOMEN: Soft, epigastric tenderness, nondistended, normoactive bowel sounds. No palpable organomegaly. MUSCULOSKELETAL: No joint swelling or deformity. EXTREMITIES: No cyanosis, clubbing, or pedal edema. NEUROLOGICAL: Gross neurological examination did not reveal any focal deficits. SKIN: No rashes. - Labs CBC & Chem 7: 03/18/18 05:38 03/18/18 05:38 Labs: Abnormal Lab Results - Last 24 Hours (Table) 03/17/18 03/17/18 03/17/18 Range/Units 10:41 14:11 14:16 WBC (3.8-10.6) k/uL Neutrophils # (1.3-7.7) k/uL Sodium (137-145) mmol/L Carbon Dioxide (22-30) mmol/L BUN 26 H (9-20) mg/dL Glucose 150 H (74-99) mg/dL POC Glucose (mg/dL) 148 H (75-99) mg/dL Hemoglobin A1c 11.9 H (4.0-6.0) % Calcium (8.4-10.2) mg/dL Phosphorus 2.0 L (2.5-4.5) mg/dL 03/17/18 03/17/18 03/17/18 Range/Units 15:09 15:54 16:59 WBC (3.8-10.6) k/uL Neutrophils # (1.3-7.7) k/uL Sodium (137-145) mmol/L Carbon Dioxide (22-30) mmol/L BUN (9-20) mg/dL Glucose (74-99) mg/dL POC Glucose (mg/dL) 123 H 112 H 132 H (75-99) mg/dL Hemoglobin A1c (4.0-6.0) % Calcium (8.4-10.2) mg/dL Phosphorus (2.5-4.5) mg/dL 03/17/18 03/17/18 03/17/18 Range/Units 17:57 19:11 20:02 WBC (3.8-10.6) k/uL Neutrophils # (1.3-7.7) k/uL Sodium (137-145) mmol/L Carbon Dioxide (22-30) mmol/L BUN (9-20) mg/dL Glucose (74-99) mg/dL POC Glucose (mg/dL) 144 H 195 H 208 H (75-99) mg/dL Hemoglobin A1c (4.0-6.0) % Calcium (8.4-10.2) mg/dL Phosphorus (2.5-4.5) mg/dL 03/17/18 03/17/18 03/17/18 Range/Units 21:03 22:40 22:50 WBC (3.8-10.6) k/uL Neutrophils # (1.3-7.7) k/uL Sodium 134 L (137-145) mmol/L Carbon Dioxide 19 L (22-30) mmol/L BUN (9-20) mg/dL Glucose (74-99) mg/dL POC Glucose (mg/dL) 232 H 208 H (75-99) mg/dL Hemoglobin A1c (4.0-6.0) % Calcium (8.4-10.2) mg/dL Phosphorus 2.2 L (2.5-4.5) mg/dL 03/17/18 03/18/18 03/18/18 Range/Units 23:56 03:48 05:38 WBC 20.3 H (3.8-10.6) k/uL Neutrophils # 17.9 H (1.3-7.7) k/uL Sodium (137-145) mmol/L Carbon Dioxide (22-30) mmol/L BUN (9-20) mg/dL Glucose (74-99) mg/dL POC Glucose (mg/dL) 226 H 195 H (75-99) mg/dL Hemoglobin A1c (4.0-6.0) % Calcium (8.4-10.2) mg/dL Phosphorus (2.5-4.5) mg/dL 03/18/18 03/18/18 03/18/18 Range/Units 05:38 06:09 12:12 WBC (3.8-10.6) k/uL Neutrophils # (1.3-7.7) k/uL Sodium 135 L (137-145) mmol/L Carbon Dioxide (22-30) mmol/L BUN (9-20) mg/dL Glucose 182 H (74-99) mg/dL POC Glucose (mg/dL) 184 H 129 H (75-99) mg/dL Hemoglobin A1c (4.0-6.0) % Calcium 8.1 L (8.4-10.2) mg/dL Phosphorus 1.7 L (2.5-4.5) mg/dL Microbiology - Last 24 Hours (Table) 03/17/18 02:35 Blood Culture - Preliminary Blood No Growth after 24 hours Assessment and Plan Assessment: Diabetic ketoacidosis Insulin-dependent diabetes mellitus History of essential hypertension Acute kidney injury Dehydration Plan: This is a pleasant 52 years old male presents with diabetic ketoacidosis. Patient was admitted to the ICU. Continue with insulin drip. Follow-up in urine And electrolytes. Pulmonary/critical care consult R following the patient. Labs and medication were reviewed.. Continue same treatment. Continue with symptomatic treatment. Resume home medication. Monitor lytes and vitals. DVT and GI prophylaxis. Further recommendations of the clinical course of the patient DVT prophylaxis: Subcutaneous heparin GI Prophylaxis: Protonix PT/OT: Pending Prognosis is guarded
[2018-03-18 17:35] LABS: Glucose,Whole Blood 177 mg/dL (75-99)
[2018-03-18 20:07] LABS: Glucose,Whole Blood 181 mg/dL (75-99)
[2018-03-18] MEDS: AMITRIPTYLINE HCL 10 MG TAB PO SCH (21:24)
[2018-03-18] MEDS: INSULIN DETEMIR 100 UNIT/ML 10 ML VIAL SQ SCH (21:24)
[2018-03-18] MEDS: D5-0.45% NACL WITH KCL 20MEQ/L 1,000 ML IV SCH (21:25)
[2018-03-19] MEDS: KETOROLAC 30 MG/ML 1 ML VIAL IVP PRN ×3 (04:58→22:43)
[2018-03-19] MEDS: ONDANSETRON 4 MG/2 ML VIAL IVP PRN ×3 (04:58→18:14)
[2018-03-19 07:35] LABS: Basophils % (A) 0 %; Eosinophils % (A) 0 %; HCT 36.9 % (39.0-53.0); HGB 12.5 gm/dL (13.0-17.5); Lymphocytes # (A) 1.5 k/uL (1.0-4.8); Lymphocytes % (A) 17 %; MCH 30.6 pg (25.0-35.0); MCHC 33.8 g/dL (31.0-37.0); MCV 90.5 fL (80.0-100.0); Mean Platelet Volume 8.2; Monocytes # (A) 0.6 k/uL (0-1.0); Monocytes % (A) 7 %; Neutrophils # (A) 6.2 k/uL (1.3-7.7); Neutrophils % (A) 73 %; Platelet Count 188 k/uL (150-450); RBC 4.08 m/uL (4.30-5.90); RDW 13.2 % (11.5-15.5); WBC 8.5 k/uL (3.8-10.6)
[2018-03-19 07:44] LABS: Glucose,Whole Blood 141 mg/dL (75-99)
[2018-03-19 07:49] LABS: Anion Gap 3 mmol/L; Blood Urea Nitrogen 11 mg/dL (9-20); Calcium 8.2 mg/dL (8.4-10.2); Carbon Dioxide 30 mmol/L (22-30); Chloride 103 mmol/L (98-107); Glucose 148 mg/dL (74-99); Magnesium 2.2 mg/dL (1.6-2.3); Phosphorus 1.7 mg/dL (2.5-4.5); Sodium 136 mmol/L (137-145)
[2018-03-19] MEDS: INSULIN ASPART 100 UNIT/ML 1 ML 10 ML VIAL SQ SCH ×7 (08:03→21:55)
[2018-03-19] MEDS: GABAPENTIN 100 MG CAP PO SCH ×3 (08:04→21:55)
[2018-03-19] MEDS: HEPARIN SODIUM,PORCINE 5,000 UNIT/ML 1 ML VIAL SQ SCH ×2 (08:04→17:45)
[2018-03-19] MEDS: LORATADINE 10 MG TAB PO SCH (08:04)
[2018-03-19] MEDS: LISINOPRIL 5 MG TAB PO SCH (08:04)
[2018-03-19] MEDS: PANTOPRAZOLE 40 MG/10 ML VIAL IV SCH ×2 (08:12→21:56)
[2018-03-19] MEDS ORDERED: PROCHLORPERAZINE SUPPOSITORY 25 MG SUPP RECTAL PRN (11:10)
--- NOTE | 2018-03-19 11:10 | P.CONS ---
History of Present Illness - Reason for Consult Consult date: 03/19/18 Epigastric pain Requesting physician: Jason E Sheet - Chief Complaint Abdominal pain nausea vomiting - History of Present Illness 32-year-old male limited with acute DKA intractable nausea vomiting epigastric pain. Patient states he vomited multiple times prior to admission a few episodes were blood-tinged. Denies hematemesis today. No episodes of hematochezia or melena. No history of EGD or peptic ulcer disease. No recent NSAIDs aspirin or alcohol. Admission hemoglobin 15.5 presently 12.5. MCV 103 presently 90. Platelet 188. BUN 11. Creatinine 0.6. KUB overall nonobstructive bowel gas pattern. Review of Systems Constitutional: Denies fever, chills, sweats, weight gain, or loss. HEENT: Negative for migraines, blurred vision or loss, earaches, drainage, tinnitus, oral mucosal lesions, dysphagia, or odynophagia. Cardiac: Negative for chest pain, arrhythmias, or palpitation. Respiratory: Negative for shortness of breath, hemoptysis, cough, or sputum production. Gastrointestinal: See HPI for pertinent findings. Genitourinary: Negative for hematuria, urgency, frequency, polyuria, dysuria, or penile discharge. Musculoskeletal: Negative for muscle aches, swelling, arthritis, and arthralgias. Neurologic: Negative for stroke or TIA. Endocrine: Negative for thyroid problems. Skin: Negative for rash or itching. Psychiatric: Negative history for depression and anxiety Past Medical History Past Medical History: Diabetes Mellitus, Hypertension, Renal Disease Additional Past Medical History / Comment(s): Pt had recent upper respiratory infection and was on antibiotics/steroids for this, IDDM type I, past DKA about 1.5 yrs ago, neuropathy bilateral legs and runs up L side of body/L arm, hand and L side of face, L eye diabetic retinopathy, diabetic nephropathy-elevated urine protein, benign nasal polyp History of Any Multi-Drug Resistant Organisms: None Reported Past Surgical History: Tonsillectomy Additional Past Surgical History / Comment(s): Closed reduction nasal bone fracture with fixation septoplasty/open reduction L malary zygomatic arch fracture. Past Anesthesia/Blood Transfusion Reactions: No Reported Reaction Smoking Status: Current every day smoker - Past Family History Father Family Medical History: No Reported History Additional Family Medical History / Comment(s): Father is healthy Mother Family Medical History: Diabetes Mellitus Additional Family Medical History / Comment(s): Gastric ulcer, one leg shorter, neuropathy involving arms. Medications and Allergies Home Medications Medication Instructions Recorded Confirmed Type Albuterol Inhaler [Ventolin Hfa 2 puff INHALATION RT-QID 03/17/18 03/17/18 History Inhaler] Amitriptyline HCl [Elavil] 10 mg PO HS 03/17/18 03/17/18 History Gabapentin [Neurontin] 100 mg PO TID 03/17/18 03/17/18 History Insulin Glulisine [Apidra] 10 unit SQ TID 03/17/18 03/17/18 History Ipratropium [place] [Atrovent Hfa] 2 puff INHALATION RT-QID 03/17/18 03/17/18 History Lisinopril [Zestril] 5 mg PO DAILY 03/17/18 03/17/18 History Loratadine [Claritin] 10 mg PO DAILY 03/17/18 03/17/18 History Zolpidem [Ambien] 10 mg PO HS PRN 03/17/18 03/17/18 History tiZANidine [Zanaflex] 4 mg PO DIRECTED PRN 03/17/18 03/17/18 History Allergies Allergy/AdvReac Type Severity Reaction Status Date / Time Penicillins Allergy Unknown Verified 03/17/18 09:34 Physical Exam Vitals: Vital Signs Temp Pulse Pulse Resp BP BP BP 03/19/18 06:52 98.7 F 98 16 113/73 03/18/18 23:00 98.9 F 99 16 120/73 03/18/18 20:00 98.4 F 101 H 15 124/82 03/18/18 18:00 104 H 26 H 93/50 03/18/18 16:00 98.1 F 102 H 16 120/84 03/18/18 14:00 108 H 16 108/69 03/18/18 12:00 98.4 F 97 18 116/77 Pulse Ox 03/19/18 06:52 97 03/18/18 23:00 96 03/18/18 20:00 93 L 03/18/18 18:00 96 03/18/18 16:00 94 L 03/18/18 14:00 94 L 03/18/18 12:00 98 Intake and Output 03/18/18 03/19/18 03/19/18 22:59 06:59 14:59 Intake Total 650 400 Output Total 1130 400 550 Balance -480 0 -550 Intake: IV 550 D5-0.45% NaCl with KCl 550 20Meq/l 1,000 ml @ 50 mls /hr IV .Q20H [facility] Rx#: [id number] Intake, IV Titration 400 Amount D5-0.45% NaCl with KCl 400 20Meq/l 1,000 ml @ 50 mls /hr IV .Q20H [facility] Rx#: [id number] Oral 100 Output: Urine 1130 400 550 Other: Voiding Method Urinal General appearance: The patient is alert, oriented, in no acute distress. HET: Head is normocephalic and atraumatic. Pupils are equal and reactive. Oropharynx is clear without lesions. Neck: Supple without lymphadenopathy. Trachea midline. Heart: S1 S2. Regular rate and rhythm. Lungs: No crackles or wheezes are heard. Abdomen: Soft, midepigastric tenderness, nondistended with bowel sounds. No peritoneal signs. No palpable organomegaly or masses. Extremities: Normal skin color and turgor. No cyanosis, rash, ulceration, clubbing, or edema. Radial and pedal pulses are 2/4 bilaterally. Neurological: No focal deficits. Strength and sensation are grossly intact. Results CBC & Chem 7: 03/19/18 06:47 03/19/18 06:47 Labs: Abnormal Lab Results - Last 24 Hours (Table) 03/18/18 03/18/18 03/18/18 Range/Units 12:12 17:31 20:04 RBC (4.30-5.90) m/uL Hgb (13.0-17.5) gm/dL Hct (39.0-53.0) % Sodium (137-145) mmol/L Creatinine (0.66-1.25) mg/dL Glucose (74-99) mg/dL POC Glucose (mg/dL) 129 H 177 H 181 H (75-99) mg/dL Calcium (8.4-10.2) mg/dL Phosphorus (2.5-4.5) mg/dL 03/19/18 03/19/18 03/19/18 Range/Units 06:47 06:47 07:32 RBC 4.08 L (4.30-5.90) m/uL Hgb 12.5 L (13.0-17.5) gm/dL Hct 36.9 L (39.0-53.0) % Sodium 136 L (137-145) mmol/L Creatinine 0.64 L (0.66-1.25) mg/dL Glucose 148 H (74-99) mg/dL POC Glucose (mg/dL) 141 H (75-99) mg/dL Calcium 8.2 L (8.4-10.2) mg/dL Phosphorus 1.7 L (2.5-4.5) mg/dL Microbiology - Last 24 Hours (Table) 03/17/18 02:35 Blood Culture - Preliminary Blood No Growth after 48 hours Abdominal x-ray: report reviewed (Dr. Chavez) Assessment and Plan (1) Epigastric abdominal pain Narrative/Plan: 32-year-old male admitted with acute DKA intractable nausea vomiting epigastric pain with reports of blood-tinged emesis most likely Prabha-[place]rs[place] possible underlying esophagitis gastritis. GI symptoms most likely exacerbated by acute DKA. Current Visit: Yes Status: Acute Code(s): R10.13 - EPIGASTRIC PAIN SNOMED Code(s): 84738559 (2) DKA, type 1 Current Visit: Yes Status: Acute Code(s): E10.10 - TYPE 1 DIABETES MELLITUS WITH KETOACIDOSIS WITHOUT COMA SNOMED Code(s): 384260189 Plan: 1. Clear liquids and advance as tolerated. Protonix 40 mg IV twice daily. Zofran 4 g every 6 hours as needed. Compazine 25 mg per rectum twice daily as needed for nausea. [place] solution 3 times a day. EGD contingent on clinical course but not planned at this time. We'll follow with you. Thank you for this kind referral and the opportunity to participate in the care of your patient. This consultation was discussed with Dr. Chavez. The impression and plan of care have been directed as dictated.
[2018-03-19 11:23] LABS: Glucose,Whole Blood 96 mg/dL (75-99)
[2018-03-19] MEDS: MAG HYDROX/AL HYDROX/SIMETH 30 ML, LIDOCAINE VISCOUS 30 ML, diphenhydrAMINE ELIXIR 75 M... PO SCH ×12 (12:26→21:56)
[2018-03-19 16:37] LABS: Glucose,Whole Blood 225 mg/dL (75-99)
[2018-03-19 20:04] LABS: Glucose,Whole Blood 237 mg/dL (75-99)
[2018-03-19] MEDS: INSULIN DETEMIR 100 UNIT/ML 10 ML VIAL SQ SCH (21:55)
[2018-03-19] MEDS: AMITRIPTYLINE HCL 10 MG TAB PO SCH (21:55)
[2018-03-19] MEDS: D5-0.45% NACL WITH KCL 20MEQ/L 1,000 ML IV SCH (21:55)
[2018-03-20] MEDS: HEPARIN SODIUM,PORCINE 5,000 UNIT/ML 1 ML VIAL SQ SCH ×4 (00:33→23:29)
[2018-03-20 07:39] LABS: Glucose,Whole Blood 189 mg/dL (75-99)
[2018-03-20] MEDS: ONDANSETRON 4 MG/2 ML VIAL IVP PRN ×2 (08:10→13:18)
[2018-03-20] MEDS: GABAPENTIN 100 MG CAP PO SCH ×3 (08:11→22:34)
[2018-03-20] MEDS: MAG HYDROX/AL HYDROX/SIMETH 30 ML, LIDOCAINE VISCOUS 30 ML, diphenhydrAMINE ELIXIR 75 M... PO SCH ×12 (08:11→17:35)
[2018-03-20] MEDS: INSULIN ASPART 100 UNIT/ML 1 ML 10 ML VIAL SQ SCH ×7 (08:13→22:34)
[2018-03-20] MEDS: LISINOPRIL 5 MG TAB PO SCH (08:13)
[2018-03-20] MEDS: LORATADINE 10 MG TAB PO SCH (08:16)
[2018-03-20] MEDS: PANTOPRAZOLE 40 MG/10 ML VIAL IV SCH ×2 (08:16→22:35)
--- NOTE | 2018-03-20 08:18 | P.PN ---
Subjective This is a pleasant 52 years old male with past medical history of diabetes mellitus, insulin-dependent which is type I. Hypertension. And renal disease. Presents because of nausea vomiting and diarrhea 2 days duration and diffuse abdominal pain, mainly in the epigastric region. pt found to have diabetic ketoacidosis. he was admitted to the icu and started on insulin drip as per protocol , this mornign pt was still complaining from some abd pain . some nausea and vomiting however his , however he looks more calm , less distress, and better hydrated , his anion gap has closed and he was started on diet. pt states he was on insulin pump but it stopped working during this two days of sickness , he thinks it might be displaced while asleep . 03/18/2018 Patient complains of nausea and epigastric pain with no actual vomiting. Still has leukocytosis of 20 K. Patient any on As close to 7 today. Bicarb is 23. Sodium is 135. Sugar is running between 129 and 226. Lipase and amylase are within normal limits. Liver enzymes were unremarkable last time they were checked. UA is negative patient may be transferred out of the ICU to the general medical floor today. With his ongoing epigastric pain and we'll call GI consult. Date of service : 03/19/2018 pt is seen and examined by me at bed side. pt looks more calm today , his sugar is better controlled. he still complains from nausea and epigastric pain and tenderness, no vomiting. his leukocytosis has resolved now and back to normal , still has epigastric tenderness, GI team will consider scope if pt symptoms persist. surgical consult is called as well Objective - Vital Signs Vital signs: Vital Signs Temp 99.2 F 03/20/18 00:32 Pulse 94 03/20/18 00:32 Resp 14 03/20/18 00:32 BP 116/73 03/20/18 00:32 Pulse Ox 94 L 03/20/18 00:32 Intake & Output 03/19/18 03/19/18 03/20/18 06:59 18:59 06:59 Intake Total 1050 140 600 Output Total 1530 550 Balance -480 -410 600 Intake: IV 550 140 D5-0.45% NaCl with KCl 550 140 20Meq/l 1,000 ml @ 50 mls /hr IV .Q20H [facility] Rx#: [id number] Intake, IV Titration 400 600 Amount D5-0.45% NaCl with KCl 400 600 20Meq/l 1,000 ml @ 50 mls /hr IV .Q20H [facility] Rx#: [id number] Oral 100 Output: Urine 1530 550 Other: Voiding Method Urinal Toilet Urinal # Voids 1 - Exam GENERAL: The patient is alert and oriented x3, not in any acute distress. Well developed, well nourished. HEENT: Pupils are round and equally reacting to light. EOMI. No scleral icterus. No conjunctival pallor. Normocephalic, atraumatic. No pharyngeal erythema. No thyromegaly. CARDIOVASCULAR: S1 and S2 present. No murmurs, rubs, or gallops. PULMONARY: Chest is clear to auscultation, no wheezing or crackles. -ABDOMEN: Soft, epigastric tenderness, nondistended, normoactive bowel sounds. No palpable organomegaly. MUSCULOSKELETAL: No joint swelling or deformity. EXTREMITIES: No cyanosis, clubbing, or pedal edema. NEUROLOGICAL: Gross neurological examination did not reveal any focal deficits. SKIN: No rashes. - Labs CBC & Chem 7: 03/19/18 06:47 03/19/18 06:47 Labs: Abnormal Lab Results - Last 24 Hours (Table) 03/19/18 03/19/18 03/19/18 Range/Units 06:47 06:47 07:32 RBC 4.08 L (4.30-5.90) m/uL Hgb 12.5 L (13.0-17.5) gm/dL Hct 36.9 L (39.0-53.0) % Sodium 136 L (137-145) mmol/L Creatinine 0.64 L (0.66-1.25) mg/dL Glucose 148 H (74-99) mg/dL POC Glucose (mg/dL) 141 H (75-99) mg/dL Calcium 8.2 L (8.4-10.2) mg/dL Phosphorus 1.7 L (2.5-4.5) mg/dL 03/19/18 03/19/18 Range/Units 16:14 19:52 RBC (4.30-5.90) m/uL Hgb (13.0-17.5) gm/dL Hct (39.0-53.0) % Sodium (137-145) mmol/L Creatinine (0.66-1.25) mg/dL Glucose (74-99) mg/dL POC Glucose (mg/dL) 225 H 237 H (75-99) mg/dL Calcium (8.4-10.2) mg/dL Phosphorus (2.5-4.5) mg/dL Microbiology - Last 24 Hours (Table) 03/17/18 02:35 Blood Culture - Preliminary Blood No Growth after 72 hours Assessment and Plan Assessment: Diabetic ketoacidosis epigastric pain and tenderness persistent nausea and vomiting Insulin-dependent diabetes mellitus History of essential hypertension Acute kidney injury Dehydration Plan: This is a pleasant 52 years old male presents with diabetic ketoacidosis. Patient was admitted to the ICU. Continue with insulin drip. Follow-up in urine And electrolytes. Pulmonary/critical care consult R following the patient. Labs and medication were reviewed.. Continue same treatment. Continue with symptomatic treatment. Resume home medication. Monitor lytes and vitals. DVT and GI prophylaxis. Further recommendations of the clinical course of the patient DVT prophylaxis: Subcutaneous heparin GI Prophylaxis: Protonix PT/OT: Pending Prognosis is guarded
[2018-03-20 08:19] VITALS: RESP 16
[2018-03-20] MEDS: KETOROLAC 30 MG/ML 1 ML VIAL IVP PRN ×3 (08:34→23:30)
--- NOTE | 2018-03-20 10:59 | P.GSCN ---
History of Present Illness Consult date: 03/20/18 Reason for Consult: Epigastric abdominal pain History of present illness: Patient moved to the hospital with complaints of epigastric abdominal pain. Some episodes of hematemesis. Patient with evidence of DKA on admission. No known history of gastroparesis. Doing somewhat better at this time. GI following. EGD being considered apparently. Abdominal x-rays nonspecific. Previous abdominal ultrasound in April was normal. Review of Systems The patient denies any acute changes in vision or hearing, no dysphagia or odynophagia, no chest pain or shortness of breath, no dysuria or hematuria, no headache, no runny nose, no rectal bleeding or melena, no unexplained weight loss Past Medical History Past Medical History: Diabetes Mellitus, Hypertension, Renal Disease Additional Past Medical History / Comment(s): Pt had recent upper respiratory infection and was on antibiotics/steroids for this, IDDM type I, past DKA about 1.5 yrs ago, neuropathy bilateral legs and runs up L side of body/L arm, hand and L side of face, L eye diabetic retinopathy, diabetic nephropathy-elevated urine protein, benign nasal polyp History of Any Multi-Drug Resistant Organisms: None Reported Past Surgical History: Tonsillectomy Additional Past Surgical History / Comment(s): Closed reduction nasal bone fracture with fixation septoplasty/open reduction L malary zygomatic arch fracture. Past Anesthesia/Blood Transfusion Reactions: No Reported Reaction Smoking Status: Current every day smoker - Past Family History Father Family Medical History: No Reported History Additional Family Medical History / Comment(s): Father is healthy Mother Family Medical History: Diabetes Mellitus Additional Family Medical History / Comment(s): Gastric ulcer, one leg shorter, neuropathy involving arms. Medications and Allergies Home Medications Medication Instructions Recorded Confirmed Type Albuterol Inhaler [Ventolin Hfa 2 puff INHALATION RT-QID 03/17/18 03/17/18 History Inhaler] Amitriptyline HCl [Elavil] 10 mg PO HS 03/17/18 03/17/18 History Gabapentin [Neurontin] 100 mg PO TID 03/17/18 03/17/18 History Insulin Glulisine [Apidra] 10 unit SQ TID 03/17/18 03/17/18 History Ipratropium [place] [Atrovent Hfa] 2 puff INHALATION RT-QID 03/17/18 03/17/18 History Lisinopril [Zestril] 5 mg PO DAILY 03/17/18 03/17/18 History Loratadine [Claritin] 10 mg PO DAILY 03/17/18 03/17/18 History Zolpidem [Ambien] 10 mg PO HS PRN 03/17/18 03/17/18 History tiZANidine [Zanaflex] 4 mg PO DIRECTED PRN 03/17/18 03/17/18 History Allergies Allergy/AdvReac Type Severity Reaction Status Date / Time Penicillins Allergy Unknown Verified 03/17/18 09:34 Surgical - Exam Vital Signs Temp Pulse Resp BP Pulse Ox 98.3 F 126 H 18 129/76 100 03/17/18 02:10 03/17/18 02:10 03/17/18 02:10 03/17/18 02:10 03/17/18 02:10 Physical exam: General: Well-developed, well-nourished HEENT: Normocephalic, sclerae nonicteric Abdomen: Mild epigastric tenderness, nondistended Extremities: No edema Neuro: Alert and oriented Results - Labs 03/19/18 06:47 03/19/18 06:47 Abnormal Lab Results - Last 24 Hours (Table) 03/19/18 03/19/18 03/20/18 Range/Units 16:14 19:52 07:27 POC Glucose (mg/dL) 225 H 237 H 189 H (75-99) mg/dL Microbiology - Last 24 Hours (Table) 03/17/18 02:35 Blood Culture - Preliminary Blood No Growth after 72 hours Assessment and Plan (1) Epigastric abdominal pain Narrative/Plan: Continue clear liquids. Continue antiacids. Endoscopy per GI. Current Visit: Yes Status: Acute Code(s): R10.13 - EPIGASTRIC PAIN SNOMED Code(s): 47350434
[2018-03-20 11:23] LABS: Basophils % (A) 1 %; Eosinophils # (A) 0.1 k/uL (0-0.7); Eosinophils % (A) 1 %; HCT 38.1 % (39.0-53.0); HGB 12.5 gm/dL (13.0-17.5); Lymphocytes # (A) 1.3 k/uL (1.0-4.8); Lymphocytes % (A) 27 %; MCHC 32.8 g/dL (31.0-37.0); MCV 91.4 fL (80.0-100.0); Mean Platelet Volume 8.5; Monocytes # (A) 0.4 k/uL (0-1.0); Monocytes % (A) 8 %; Neutrophils # (A) 3.2 k/uL (1.3-7.7); Neutrophils % (A) 62 %; Platelet Count 187 k/uL (150-450); RBC 4.17 m/uL (4.30-5.90); RDW 13.1 % (11.5-15.5); WBC 5.1 k/uL (3.8-10.6)
[2018-03-20 11:38] LABS: Anion Gap 5 mmol/L; Blood Urea Nitrogen 11 mg/dL (9-20); Calcium 8.3 mg/dL (8.4-10.2); Carbon Dioxide 31 mmol/L (22-30); Chloride 102 mmol/L (98-107); Glucose 162 mg/dL (74-99); Magnesium 2.1 mg/dL (1.6-2.3); Phosphorus 1.8 mg/dL (2.5-4.5); Potassium 3.6 mmol/L (3.5-5.1); Sodium 138 mmol/L (137-145)
[2018-03-20 11:58] LABS: Glucose,Whole Blood 144 mg/dL (75-99)
[2018-03-20] MEDS: D5-0.45% NACL WITH KCL 20MEQ/L 1,000 ML IV SCH (12:58)
[2018-03-20] MEDS: TOBRA-DEXAMET 0.3-0.1% OPHTH DROPS 2.5 ML BTL BOTH EARS SCH ×2 (13:18→22:34)
[2018-03-20] MEDS: POLYETHYLENE GLYCOL 3350 17 GM POWD.PACK PO SCH (16:16)
[2018-03-20 17:14] LABS: Glucose,Whole Blood 169 mg/dL (75-99)
[2018-03-20] MEDS ORDERED: tiZANidine 4 MG TAB PO PRN (19:18)
[2018-03-20 19:54] LABS: Glucose,Whole Blood 135 mg/dL (75-99)
[2018-03-20] MEDS ORDERED: NON-FORMULARY DRUG (Ipratropium Bromide [Atrovent Hfa] 2 PUFF) INHALATION SCH (20:00)
[2018-03-20] MEDS: IPRATROPIUM-ALBUTEROL 3 ML NEB INHALATION SCH (20:27)
--- NOTE | 2018-03-20 20:29 | P.PN ---
Subjective Progress Note Date: 03/20/18 Principal diagnosis: Abdominal pain, nausea and vomiting Overall patient is feeling much better, and tolerating his diet. He still reports some epigastric discomfort, however overall much improved. Objective - Vital Signs Vital signs: Vital Signs Temp 98.4 F 03/20/18 20:00 Pulse 81 03/20/18 20:00 Resp 16 03/20/18 20:00 BP 105/69 03/20/18 20:00 Pulse Ox 96 03/20/18 20:00 Intake & Output 03/20/18 03/20/18 03/21/18 06:59 18:59 06:59 Intake Total 600 400 Output Total 1100 Balance 600 -700 Weight 76.2 kg Intake: IV 400 D5-0.45% NaCl with KCl 400 20Meq/l 1,000 ml @ 50 mls /hr IV .Q20H BRI Rx#: [id number] Intake, IV Titration 600 Amount D5-0.45% NaCl with KCl 600 20Meq/l 1,000 ml @ 50 mls /hr IV .Q20H BRI Rx#: [id number] Output: Urine 1100 Other: Voiding Method Toilet Urinal # Voids 1 4 - Exam On physical examination, patient appears comfortable in no apparent distress. HEAD: Normocephalic, atraumatic. EYES: No scleral icterus. No conjunctival injection. MOUTH: No lesions, tongue midline. NECK: Trachea midline, no gross abnormalities. CHEST: Clear to auscultation with no wheezing or rhonchi appreciated. HEART: Regular rate and rhythm. ABDOMEN: Soft, obese. Bowel sounds are positive. No organomegaly. No guarding or rigidity. EXTREMITIES: No pedal edema. SKIN: No rashes, no jaundice. NEUROLOGIC: Alert and oriented x3. No focal deficits. - Labs CBC & Chem 7: 03/20/18 09:10 03/20/18 09:10 Labs: Abnormal Lab Results - Last 24 Hours (Table) 03/20/18 03/20/18 03/20/18 Range/Units 07:27 09:10 09:10 RBC 4.17 L (4.30-5.90) m/uL Hgb 12.5 L (13.0-17.5) gm/dL Hct 38.1 L (39.0-53.0) % Carbon Dioxide 31 H (22-30) mmol/L Creatinine 0.60 L (0.66-1.25) mg/dL Glucose 162 H (74-99) mg/dL POC Glucose (mg/dL) 189 H (75-99) mg/dL Calcium 8.3 L (8.4-10.2) mg/dL Phosphorus 1.8 L (2.5-4.5) mg/dL 03/20/18 03/20/18 03/20/18 Range/Units 11:47 17:03 19:53 RBC (4.30-5.90) m/uL Hgb (13.0-17.5) gm/dL Hct (39.0-53.0) % Carbon Dioxide (22-30) mmol/L Creatinine (0.66-1.25) mg/dL Glucose (74-99) mg/dL POC Glucose (mg/dL) 144 H 169 H 135 H (75-99) mg/dL Calcium (8.4-10.2) mg/dL Phosphorus (2.5-4.5) mg/dL Microbiology - Last 24 Hours (Table) 03/17/18 02:35 Blood Culture - Preliminary Blood No Growth after 72 hours Assessment and Plan (1) Nausea, vomiting and diarrhea Narrative/Plan: No further nausea or vomiting. Hemoglobin remains stable. Patient now reporting constipation. Current Visit: Yes Status: Acute Code(s): R11.2 - NAUSEA WITH VOMITING, UNSPECIFIED; R19.7 - DIARRHEA, UNSPECIFIED SNOMED Code(s): 1170451 (2) DKA, type 1 Current Visit: Yes Status: Acute Code(s): E10.10 - TYPE 1 DIABETES MELLITUS WITH KETOACIDOSIS WITHOUT COMA SNOMED Code(s): 834906519 (3) Epigastric abdominal pain Narrative/Plan: Still reporting some epigastric abdominal pain, improved. Current Visit: Yes Status: Acute Code(s): R10.13 - EPIGASTRIC PAIN SNOMED Code(s): 14837620 Plan: Supportive care Diet advanced Tight glycemic control Protonix twice a day Continue to monitor hemoglobin, has remained stable Thank you for allowing us to participate in the care of this patient, we will continue to monitor
[2018-03-20] MEDS ORDERED: ZOLPIDEM 10 MG TAB PO PRN (21:00)
[2018-03-20] MEDS: INSULIN DETEMIR 100 UNIT/ML 10 ML VIAL SQ SCH (22:35)
[2018-03-20] MEDS: AMITRIPTYLINE HCL 10 MG TAB PO SCH (23:29)
--- NOTE | 2018-03-21 00:35 | PN ---
PROGRESS NOTE . DATE OF SERVICE: 03/20/2018 This 32-year-old gentleman who presented with multiple medical problems was also complaining of epigastric pain. The patient had diabetic ketosis acute with severe acute metabolic acidosis. Patient also complains ear pain also. Surgery and gastroenterology is on consult at this time. There is no history of fever, rigors, chills at this time. PAST MEDICAL HISTORY: Reviewed. REVIEW OF SYSTEMS: CARDIOVASCULAR: No angina. Respiration: As mentioned earlier. GI: As mentioned earlier. : No dysuria. CURRENT MEDICATIONS ARE: 1. DuoNeb q.i.d. and p.r.n. 2. Elavil. 3. Neurontin 300 mg t.i.d. 4. Heparin subcu q.8h. 5. NovoLog scale. 6. Levemir 10 units subcu q.h.s. 7. Toradol 15 mg q.6h p.r.n. 8. Zestril 5 mg. 9. Claritin 10 mg p.o. daily. 10.Narcan 0.2 q.2h p.r.n. 11.Zofran. 12.Protonix. 13.Compazine. PHYSICAL EXAM: Patient is alert, oriented x3. Pulse 78, blood pressure 135/94, respiration 16, temperature 98.1, pulse ox 97% on room air. HEENT: Conjunctivae normal. Oral mucosa moist. Neck is no jugular venous distention. No carotid bruit. No lymph node enlargement. Cardiovascular: S1, S2 muffled. Respiratory: Breath sounds diminished in the bases. No rhonchi. No crackles. ABDOMEN: Soft. Mild diffuse tenderness in the epigastrium. No guarding. No rigidity. No mass palpable. Legs: No edema. No swelling. Central nervous system: Higher functions as mentioned earlier. Moves all four extremities. No focal deficits. Lymphatics: No lymph nodes palpable in the neck, axillae or groin. Skin: No ulcer, no rash and no bleeding. LAB STUDIES: WBC 5.4, hemoglobin 12.5, glucose noted and phos was 1.8. ASSESSMENT: 1. Acute diabetic ketoacidosis with severe metabolic acidosis epigastric pain and tenderness, possible acute gastritis. 2. History of persistent nausea, vomiting. 3. Diabetes mellitus type 1. 4. History of essential hypertension. 5. Bilateral ear pains. 6. Acute kidney injury. 7. Dehydration. 8. Hypophosphatemia. 9. Hypocalcemia. RECOMMENDATIONS AND DISCUSSION: Recommend to continue current medications, management and symptomatic treatment. Otherwise, at this time, I recommend repeat labs and I would also recommend continue to follow with Gastroenterology and surgery and symptomatic treatment with proton pump inhibitors and I would also recommend an ultrasound of the abdomen to complete the workup also. Otoscope is not available. Further recommendations to follow. The white count is normal. MMODL / IJN: [id number] /
[2018-03-21 06:51] LABS: Glucose,Whole Blood 85 mg/dL (75-99)
[2018-03-21] MEDS: INSULIN ASPART 100 UNIT/ML 1 ML 10 ML VIAL SQ SCH ×7 (06:53→22:43)
[2018-03-21 07:44] LABS: Basophils % (A) 1 %; Eosinophils # (A) 0.2 k/uL (0-0.7); Eosinophils % (A) 4 %; HCT 40.1 % (39.0-53.0); HGB 13.6 gm/dL (13.0-17.5); Lymphocytes # (A) 1.9 k/uL (1.0-4.8); Lymphocytes % (A) 32 %; MCH 30.7 pg (25.0-35.0); MCHC 33.9 g/dL (31.0-37.0); MCV 90.8 fL (80.0-100.0); Mean Platelet Volume 8.3; Monocytes # (A) 0.5 k/uL (0-1.0); Monocytes % (A) 8 %; Neutrophils # (A) 3.2 k/uL (1.3-7.7); Neutrophils % (A) 54 %; Platelet Count 187 k/uL (150-450); RBC 4.42 m/uL (4.30-5.90); RDW 12.9 % (11.5-15.5); WBC 5.9 k/uL (3.8-10.6)
--- NOTE | 2018-03-21 07:57 | US ---
EXAMINATION TYPE: US gallbladder DATE OF EXAM: 03/21/2018 COMPARISON: 04/22/2017 CLINICAL HISTORY: cholelithiasis. epigastric pain x 5 days with nausea and vomiting after meals; diab etic EXAM MEASUREMENTS: Liver Length: 19.3 cm; rechecked size = 18.0cm Gallbladder Wall: 0.25 cm CBD: 0.3 cm Right Kidney: 11.6 x 6.5 x 4.3 cm Pancreas: wnl Liver: echotexture is wnl; size is prominent Gallbladder: wnl Evidence for sonographic Goldberg's sign: no CBD: wnl Right Kidney: wnl IMPRESSION: 1. Mild Hepatomegaly with underlying fatty hepatic infiltration.
[2018-03-21 08:02] LABS: Anion Gap 6 mmol/L; Blood Urea Nitrogen 9 mg/dL (9-20); Calcium 8.6 mg/dL (8.4-10.2); Carbon Dioxide 32 mmol/L (22-30); Chloride 103 mmol/L (98-107); Glucose 85 mg/dL (74-99); Magnesium 2.1 mg/dL (1.6-2.3); Phosphorus 2.2 mg/dL (2.5-4.5); Potassium 3.8 mmol/L (3.5-5.1); Sodium 141 mmol/L (137-145)
[2018-03-21] MEDS: ONDANSETRON 4 MG/2 ML VIAL IVP PRN (08:02)
[2018-03-21] MEDS: MAG HYDROX/AL HYDROX/SIMETH 30 ML, LIDOCAINE VISCOUS 30 ML, diphenhydrAMINE ELIXIR 75 M... PO SCH ×12 (08:03→18:13)
[2018-03-21] MEDS: KETOROLAC 30 MG/ML 1 ML VIAL IVP PRN ×2 (08:04→16:02)
[2018-03-21] MEDS: PANTOPRAZOLE 40 MG/10 ML VIAL IV SCH ×2 (08:04→22:43)
[2018-03-21] MEDS: LISINOPRIL 5 MG TAB PO SCH (08:05)
[2018-03-21] MEDS: GABAPENTIN 100 MG CAP PO SCH ×3 (08:05→22:42)
[2018-03-21] MEDS: HEPARIN SODIUM,PORCINE 5,000 UNIT/ML 1 ML VIAL SQ SCH ×2 (08:05→16:01)
[2018-03-21] MEDS: LORATADINE 10 MG TAB PO SCH (08:05)
[2018-03-21] MEDS: POLYETHYLENE GLYCOL 3350 17 GM POWD.PACK PO SCH (08:07)
[2018-03-21] MEDS: D5-0.45% NACL WITH KCL 20MEQ/L 1,000 ML IV SCH (08:15)
[2018-03-21] MEDS: TOBRA-DEXAMET 0.3-0.1% OPHTH DROPS 2.5 ML BTL BOTH EARS SCH ×2 (08:16→22:42)
[2018-03-21] MEDS: IPRATROPIUM-ALBUTEROL 3 ML NEB INHALATION SCH ×4 (08:56→21:00)
[2018-03-21 11:40] LABS: Glucose,Whole Blood 256 mg/dL (75-99)
--- NOTE | 2018-03-21 11:47 | P.PN ---
Subjective Progress Note Date: 03/21/18 Principal diagnosis: Epigastric pain Patient states overall he is doing better. His white blood cell count is normal. He says he does have some mild pain in the epigastric region when swallowing. Recent ultrasound obtained yesterday was normal. Objective - Vital Signs Vital signs: Vital Signs Temp 98.2 F 03/21/18 07:00 Pulse 80 03/21/18 09:11 Resp 16 03/21/18 07:00 BP 112/77 03/21/18 07:00 Pulse Ox 99 03/21/18 07:00 Intake & Output 03/20/18 03/21/18 03/21/18 18:59 06:59 18:59 Intake Total 400 1450 Output Total 1100 Balance -700 1450 Weight 76.2 kg Intake: IV 400 800 D5-0.45% NaCl with KCl 400 800 20Meq/l 1,000 ml @ 50 mls /hr IV .Q20H BRI Rx#: [id number] Oral 650 Output: Urine 1100 Other: Voiding Method Toilet Toilet Urinal Urinal # Voids 4 3 - Exam Abdomen: Soft, nondistended, mild epigastric tenderness - Labs CBC & Chem 7: 03/21/18 06:50 03/21/18 06:50 Labs: Abnormal Lab Results - Last 24 Hours (Table) 03/20/18 03/20/18 03/20/18 Range/Units 11:47 17:03 19:53 Carbon Dioxide (22-30) mmol/L Creatinine (0.66-1.25) mg/dL POC Glucose (mg/dL) 144 H 169 H 135 H (75-99) mg/dL Phosphorus (2.5-4.5) mg/dL 03/21/18 03/21/18 Range/Units 06:50 11:28 Carbon Dioxide 32 H (22-30) mmol/L Creatinine 0.62 L (0.66-1.25) mg/dL POC Glucose (mg/dL) 256 H (75-99) mg/dL Phosphorus 2.2 L (2.5-4.5) mg/dL Microbiology - Last 24 Hours (Table) 03/17/18 02:35 Blood Culture - Preliminary Blood No Growth after 96 hours Assessment and Plan (1) Epigastric abdominal pain Narrative/Plan: Continue diet as tolerated. Possible EGD per GI. No surgical intervention planned. Current Visit: Yes Status: Acute Code(s): R10.13 - EPIGASTRIC PAIN SNOMED Code(s): 37976047
[2018-03-21 17:09] LABS: Glucose,Whole Blood 253 mg/dL (75-99)
--- NOTE | 2018-03-21 18:13 | P.PN ---
Subjective Progress Note Date: 03/21/18 Principal diagnosis: Abdominal pain, nausea and vomiting Overall patient is feeling much better, and tolerating his diet. Epigastric pain is improved. Started on a bowel regimen yesterday. Objective - Vital Signs Vital signs: Vital Signs Temp 98.6 F 03/21/18 15:00 Pulse 88 03/21/18 15:00 Resp 16 03/21/18 15:00 BP 99/65 03/21/18 15:00 Pulse Ox 95 03/21/18 15:00 Intake & Output 03/20/18 03/21/18 03/21/18 18:59 06:59 18:59 Intake Total 400 1450 320 Output Total 1100 Balance -700 1450 320 Weight 76.2 kg Intake: IV 400 800 200 D5-0.45% NaCl with KCl 400 800 200 20Meq/l 1,000 ml @ 50 mls /hr IV .Q20H BRI Rx#: [id number] Oral 650 120 Output: Urine 1100 Other: Voiding Method Toilet Toilet Toilet Urinal Urinal Urinal # Voids 4 3 3 - Exam On physical examination, patient appears comfortable in no apparent distress. HEAD: Normocephalic, atraumatic. EYES: No scleral icterus. No conjunctival injection. MOUTH: No lesions, tongue midline. NECK: Trachea midline, no gross abnormalities. CHEST: Clear to auscultation with no wheezing or rhonchi appreciated. HEART: Regular rate and rhythm. ABDOMEN: Soft, obese. Bowel sounds are positive. No organomegaly. No guarding or rigidity. EXTREMITIES: No pedal edema. SKIN: No rashes, no jaundice. NEUROLOGIC: Alert and oriented x3. No focal deficits. - Labs CBC & Chem 7: 03/21/18 06:50 03/21/18 06:50 Labs: Abnormal Lab Results - Last 24 Hours (Table) 03/20/18 03/21/18 03/21/18 Range/Units 19:53 06:50 11:28 Carbon Dioxide 32 H (22-30) mmol/L Creatinine 0.62 L (0.66-1.25) mg/dL POC Glucose (mg/dL) 135 H 256 H (75-99) mg/dL Phosphorus 2.2 L (2.5-4.5) mg/dL 03/21/18 Range/Units 16:57 Carbon Dioxide (22-30) mmol/L Creatinine (0.66-1.25) mg/dL POC Glucose (mg/dL) 253 H (75-99) mg/dL Phosphorus (2.5-4.5) mg/dL Microbiology - Last 24 Hours (Table) 03/17/18 02:35 Blood Culture - Preliminary Blood No Growth after 96 hours Assessment and Plan (1) Nausea, vomiting and diarrhea Narrative/Plan: No further nausea or vomiting. Hemoglobin remains stable. Ultrasound of the abdomen significant only for hepatomegaly. Current Visit: Yes Status: Acute Code(s): R11.2 - NAUSEA WITH VOMITING, UNSPECIFIED; R19.7 - DIARRHEA, UNSPECIFIED SNOMED Code(s): 1984193 (2) DKA, type 1 Current Visit: Yes Status: Acute Code(s): E10.10 - TYPE 1 DIABETES MELLITUS WITH KETOACIDOSIS WITHOUT COMA SNOMED Code(s): 392673293 (3) Epigastric abdominal pain Narrative/Plan: Still reporting some epigastric abdominal pain, improved. Current Visit: Yes Status: Acute Code(s): R10.13 - EPIGASTRIC PAIN SNOMED Code(s): 29608695 Plan: Supportive care Diet advanced Tight glycemic control Protonix twice a day Continue to monitor hemoglobin, has remained stable Thank you for allowing us to participate in the care of this patient, we will continue to monitor
[2018-03-21 20:37] LABS: Glucose,Whole Blood 173 mg/dL (75-99)
--- NOTE | 2018-03-21 20:49 | PN ---
PROGRESS NOTE DATE OF SERVICE: 03/21/2018. HISTORY: This 32-year-old gentleman who was admitted with acute diabetic ketoacidosis is also complaining of epigastric pain at this time. Gastroenterology as well as Surgery are following the patient for possible EGD. No chest pain. No palpitations. No fever. EXAM: Alert and oriented x3. Pulse 88, respirations 16, blood pressure 90/64, temperature 98.2, pulse ox 94% on room air. HEENT: Conjunctivae normal. NECK: No JVD. CARDIOVASCULAR: S1 and S2 muffled. LUNGS: Breath sounds diminished at the bases. No rhonchi, no crackles. ABDOMEN: Soft, nontender. LEGS: No edema. NERVOUS SYSTEM: No focal deficits. LABS: Accu-Cheks 256 and 253. Other labs are noted. ASSESSMENT: 1. Acute diabetic ketoacidosis with severe metabolic acidosis present on admission. 2. Epigastric pain and tenderness, possible acute gastritis. 3. History of persistent nausea and vomiting. 4. Diabetes mellitus type 1. 5. History of essential hypertension. 6. Bilateral ear pain. 7. Acute kidney injury. 8. Mild dehydration. 9. Hypophosphatemia. 10.Hypocalcemia. RECOMMENDATIONS: Recommend to continue current management and symptomatic treatment. Otherwise, closely follow with GI for possible upper endoscopy tomorrow. Continue the rest of the medications. Guarded prognosis. Further recommendations to follow. MMODL / IJN: [id number] /
[2018-03-21] MEDS: AMITRIPTYLINE HCL 10 MG TAB PO SCH (22:42)
[2018-03-21] MEDS: INSULIN DETEMIR 100 UNIT/ML 10 ML VIAL SQ SCH (22:43)
[2018-03-22] MEDS: HEPARIN SODIUM,PORCINE 5,000 UNIT/ML 1 ML VIAL SQ SCH ×3 (00:17→17:08)
[2018-03-22] MEDS: ONDANSETRON 4 MG/2 ML VIAL IVP PRN ×2 (04:01→08:55)
[2018-03-22] MEDS: IPRATROPIUM-ALBUTEROL 3 ML NEB INHALATION SCH ×3 (07:27→16:09)
[2018-03-22 08:01] LABS: Glucose,Whole Blood 122 mg/dL (75-99)
[2018-03-22] MEDS: INSULIN ASPART 100 UNIT/ML 1 ML 10 ML VIAL SQ SCH ×5 (08:23→14:07)
[2018-03-22 08:27] VITALS: BP 122/74; TEMP 98.8
[2018-03-22] MEDS: LISINOPRIL 5 MG TAB PO SCH (08:31)
[2018-03-22] MEDS: GABAPENTIN 100 MG CAP PO SCH ×2 (08:31→15:42)
[2018-03-22] MEDS: MAG HYDROX/AL HYDROX/SIMETH 30 ML, LIDOCAINE VISCOUS 30 ML, diphenhydrAMINE ELIXIR 75 M... PO SCH ×12 (08:32→15:43)
[2018-03-22] MEDS: PANTOPRAZOLE 40 MG/10 ML VIAL IV SCH (08:32)
[2018-03-22] MEDS: LORATADINE 10 MG TAB PO SCH (08:32)
[2018-03-22] MEDS: TOBRA-DEXAMET 0.3-0.1% OPHTH DROPS 2.5 ML BTL BOTH EARS SCH (08:47)
[2018-03-22] MEDS: POLYETHYLENE GLYCOL 3350 17 GM POWD.PACK PO SCH (09:00)
[2018-03-22 09:16] LABS: Basophils % (A) 0 %; Eosinophils # (A) 0.3 k/uL (0-0.7); Eosinophils % (A) 5 %; HCT 38.2 % (39.0-53.0); HGB 12.7 gm/dL (13.0-17.5); Lymphocytes # (A) 2.1 k/uL (1.0-4.8); Lymphocytes % (A) 37 %; MCH 30.1 pg (25.0-35.0); MCHC 33.1 g/dL (31.0-37.0); MCV 90.7 fL (80.0-100.0); Mean Platelet Volume 9.2; Monocytes # (A) 0.5 k/uL (0-1.0); Monocytes % (A) 8 %; Neutrophils # (A) 2.7 k/uL (1.3-7.7); Neutrophils % (A) 48 %; Platelet Count 235 k/uL (150-450); RBC 4.21 m/uL (4.30-5.90); WBC 5.8 k/uL (3.8-10.6)
[2018-03-22 09:22] LABS: Anion Gap 7 mmol/L; Blood Urea Nitrogen 10 mg/dL (9-20); Calcium 8.8 mg/dL (8.4-10.2); Carbon Dioxide 28 mmol/L (22-30); Chloride 103 mmol/L (98-107); Glucose 122 mg/dL (74-99); Magnesium 1.9 mg/dL (1.6-2.3); Phosphorus 2.9 mg/dL (2.5-4.5); Potassium 4.1 mmol/L (3.5-5.1); Sodium 138 mmol/L (137-145)
--- NOTE | 2018-03-22 09:22 | P.PN ---
Subjective Progress Note Date: 03/22/18 Principal diagnosis: epigastric pain nausea vomiting admitted with acute DKA nausea vomiting epigastric pain. Still reports epigastric pain dyspepsia. nothing by mouth since midnight. Glucose levels improving. Objective - Vital Signs Vital signs: Vital Signs Temp 98.8 F 03/22/18 07:00 Pulse 80 03/22/18 07:39 Resp 16 03/22/18 07:00 BP 122/74 03/22/18 07:00 Pulse Ox 97 03/22/18 07:00 Intake & Output 03/21/18 03/22/18 03/22/18 18:59 06:59 18:59 Intake Total 320 1240 Balance 320 1240 Intake: IV 200 400 D5-0.45% NaCl with KCl 200 400 20Meq/l 1,000 ml @ 50 mls /hr IV .Q20H BRI Rx#: [id number] Oral 120 840 Other: Voiding Method Toilet Toilet Urinal Urinal # Voids 3 2 - Exam General appearance: The patient is alert, oriented, in no acute distress. HET: Head is normocephalic and atraumatic. Pupils are equal and reactive. Oropharynx is clear without lesions. Neck: Supple without lymphadenopathy. Trachea midline. Heart: S1 S2. Regular rate and rhythm. Lungs: No crackles or wheezes are heard. Abdomen: Soft, mild midepigastric tenderness, nondistended with bowel sounds. No peritoneal signs. No palpable organomegaly or masses. Extremities: Normal skin color and turgor. No cyanosis, rash, ulceration, clubbing, or edema. Radial and pedal pulses are 2/4 bilaterally. Neurological: No focal deficits. Strength and sensation are grossly intact. - Labs CBC & Chem 7: 03/22/18 07:44 03/22/18 07:44 Labs: Abnormal Lab Results - Last 24 Hours (Table) 03/21/18 03/21/18 03/21/18 Range/Units 11:28 16:57 20:25 POC Glucose (mg/dL) 256 H 253 H 173 H (75-99) mg/dL 03/22/18 Range/Units 07:49 POC Glucose (mg/dL) 122 H (75-99) mg/dL Microbiology - Last 24 Hours (Table) 03/17/18 02:35 Blood Culture - Preliminary Blood No Growth after 120 hours Assessment and Plan (1) Epigastric abdominal pain Narrative/Plan: 32-year-old male admitted with acute DKA intractable nausea vomiting epigastric pain with reports of blood-tinged emesis most likely Prabha-Rosas possible underlying esophagitis gastritis underlying peptic ulcer disease cannot be excluded. GI symptoms most likely exacerbated by acute DKA. Current Visit: Yes Status: Acute Code(s): R10.13 - EPIGASTRIC PAIN SNOMED Code(s): 10218196 (2) DKA, type 1 Current Visit: Yes Status: Acute Code(s): E10.10 - TYPE 1 DIABETES MELLITUS WITH KETOACIDOSIS WITHOUT COMA SNOMED Code(s): 700857370 Plan: 1. EGD. The cigarette tester has discussed the risks, benefits and alternative therapies for the above-mentioned procedure and for both sedation/analgesia as well as necessary blood product administration, if indicated, as they pertain to this patient. The patient has indicated understanding and acceptance of the risks and procedures discussed. Assessment and plan a care discussed with Dr. Beltran
[2018-03-22] MEDS ORDERED: LIDOCAINE 1% INJ 10MG/ML (20 ML MDV) ONE (11:15)
[2018-03-22] MEDS ORDERED: PROPOFOL 10 MG/ML 20 ML VIAL IV ONE (11:15)
[2018-03-22] MEDS ORDERED: IV FLUID CONTINUATION 1,000 ML IV ONE (11:17)
--- NOTE | 2018-03-22 11:35 | P.PCN ---
Date of Procedure: 03/22/18 Procedure(s) Performed: BRIEF HISTORY: Patient is a 32-year-old, pleasant,, abdomen the hospital with acute DKA. At the time of admission to hospital he had several episodes of coffee-ground emesis and hence he scheduled for an upper endoscopy to evaluate further.. PROCEDURE PERFORMED: Esophagogastroduodenoscopy. PREOPERATIVE DIAGNOSIS: Acute upper GI bleed. IV sedation per anesthesia. PROCEDURE: After informed consent was obtained, the patient was brought into the endoscopy unit. IV sedation was administered by Anesthesia under continuous monitoring. Initially the Olympus GIF-140 video endoscope was inserted into the mouth. Esophagus intubated without any difficulty. It was gradually advanced into the stomach and duodenum and carefully examined. The bulb and the second part of the duodenum appeared normal. The scope at this time was withdrawn to the stomach, adequately insufflated with air, and upon careful examination, mucosa of the antrum, body, cardia and the fundus appeared normal. The scope was then withdrawn into the esophagus. The GE junction was located at 40 cm from the incisors. There were circumferential erosions in the distal esophagus with exudates extending from 35-40 cm from the incisors consistent with LA grade C reflux esophagitis. The proximal and midesophagus appeared normal and the patient tolerated the procedure well. IMPRESSION: 1. Circumferential erosions in the distal esophagus extending from 35-40 cm from the incisors with exudates consistent with LA grade C reflux esophagitis.. 2. No evidence of peptic ulcer disease. RECOMMENDATIONS: The findings of this examination were discussed with the patient. He will be continued on Protonix 40 mg twice daily and follow antireflux measures. Diet can be advanced as tolerated..
[2018-03-22 12:41] LABS: Glucose,Whole Blood 235 mg/dL (75-99)
--- NOTE | 2018-03-22 13:18 | P.PN ---
Subjective Progress Note Date: 03/22/18 32-year-old scheduled today for an EGD per GI service. Patients being worked up for mid epigastric pain difficulty with swallowing patient did undergo an ultrasound of the gallbladder was normal Objective - Vital Signs Vital signs: Vital Signs Temp 98.8 F 03/22/18 07:00 Pulse 84 03/22/18 11:03 Resp 16 03/22/18 07:00 BP 122/74 03/22/18 07:00 Pulse Ox 97 03/22/18 07:00 Intake & Output 03/21/18 03/22/18 03/22/18 18:59 06:59 18:59 Intake Total 320 1240 100 Balance 320 1240 100 Intake: IV 200 400 100 D5-0.45% NaCl with KCl 200 400 20Meq/l 1,000 ml @ 50 mls /hr IV .Q20H BRI Rx#: [id number] Oral 120 840 Other: Voiding Method Toilet Toilet Urinal Urinal # Voids 3 2 - Exam Exam Mild midepigastric tenderness not distended no nausea no vomiting - Labs CBC & Chem 7: 03/22/18 07:44 03/22/18 07:44 Labs: Abnormal Lab Results - Last 24 Hours (Table) 03/21/18 03/21/18 03/22/18 Range/Units 16:57 20:25 07:44 RBC 4.21 L (4.30-5.90) m/uL Hgb 12.7 L (13.0-17.5) gm/dL Hct 38.2 L (39.0-53.0) % Creatinine (0.66-1.25) mg/dL Glucose (74-99) mg/dL POC Glucose (mg/dL) 253 H 173 H (75-99) mg/dL 03/22/18 03/22/18 03/22/18 Range/Units 07:44 07:49 12:19 RBC (4.30-5.90) m/uL Hgb (13.0-17.5) gm/dL Hct (39.0-53.0) % Creatinine 0.65 L (0.66-1.25) mg/dL Glucose 122 H (74-99) mg/dL POC Glucose (mg/dL) 122 H 235 H (75-99) mg/dL Microbiology - Last 24 Hours (Table) 03/17/18 02:35 Blood Culture - Preliminary Blood No Growth after 120 hours Assessment and Plan Assessment: Impression Epigastric abdominal pain with no evidence of an acute surgical intervention indicated Scheduled for an EGD per GI Present on admission nausea vomiting diarrhea DKA type I Plan No evidence of an acute surgical abdomen Continue with the plan of care per GI Await the findings from the EGD Will follow with you The above impression and plan of care have been discussed and directed by signing physician. Anuradha Cruz nurse practitioner acting as scribe for signing physician.
[2018-03-22 16:18] VITALS: PULSE 77
[2018-03-22] MEDS ORDERED: PANTOPRAZOLE 40 MG TABLET PO SCH (17:30)
--- NOTE | 2018-03-23 00:43 | DS ---
DISCHARGE SUMMARY DATE OF SERVICE: 03/22/2018. FINAL DIAGNOSES: 1. Acute diabetic ketosis, severe metabolic acidosis present on admission. 2. Epigastric pain, tenderness, possible acute gastritis. 3. Damaris C reflux esophagitis. 4. History of persistent nausea, vomiting. 5. Diabetes mellitus type 1. 6. History of essential hypertension. 7. History of ear pain. 8. Acute kidney injury. 9. Mild dehydration. 10.Hypophosphatemia. 11.Hypocalcemia. DISCHARGE DISPOSITION: The patient is being discharged in stable condition with guarded prognosis. HISTORY: This 32-year-old gentleman with a past medical history of multiple medical problems admitted with acute diabetic ketoacidosis. Patient treated symptomatically, improved significantly. Blood sugars are controlled. Gastroenterology saw the patient. Dr. Beltran performed upper endoscopy, which showed circumferential lesions in the distal esophagus extending from 35-40 cm, consistent with low-grade grade C reflux esophagitis. The patient treated symptomatically. Patient improved significantly. PHYSICAL EXAMINATION: On exam, vital signs stable. Cardiovascular: S1, S2. Abdomen soft. Central nervous system: No focal deficits. DISCHARGE ADVICE AND MEDICATIONS: 1. Diet is cardiac diet. 2. Activity limited until follow up. 3. Follow with Dr. Parrish in 2-3 days. 4. Follow up with Dr. Beltran as advised. MEDICATIONS ARE: 1. Albuterol 2 puffs q.i.d. 2. Elavil 10 mg q.h.s. 3. Neurontin 100 mg p.o. t.i.d. 4. Atrovent 2 q.i.d. 5. Zestril 5 mg daily. 6. Claritin 10 mg. 7. Zanaflex 4 mg p.r.n. 8. Ambien 10 mg q.h.s. p.r.n. 9. Tylenol t.i.d. p.r.n. 10.NovoLog 880 units a.c. t.i.d. 11.Levemir 20 units subcu q.h.s. 12.Omeprazole 40 mg p.o. daily. Once again, the patient will be discharged in stable condition with guarded prognosis. MMODL / IJN: [id number] /
== END 2018-03-22 17:40 | disposition home or self-care (01) | DRG 638 ==
LOC: EC 01:53 → 2SICU 03:15 → 4SSUR 03-18 23:37
PROVIDERS: ADMIT Hospitalist; ATTEND Hospitalist
PROC: 0DJ08ZZ Inspection of Upper Intestinal Tract, Via Natural or Artificial Opening Endoscopic (ICD-10-PCS; principal; 2018-03-22 08:15)
DX: E10.10 Type 1 diabetes mellitus with ketoacidosis without coma (principal); E87.1 Hypo-osmolality and hyponatremia; N17.9 Acute kidney failure, unspecified; K92.0 Hematemesis; E10.21 Type 1 diabetes mellitus with diabetic nephropathy; E10.319 Type 1 diabetes mellitus with unspecified diabetic retinopathy without macular edema; Z79.4 Long term (current) use of insulin; Z96.41 Presence of insulin pump (external) (internal); D72.829 Elevated white blood cell count, unspecified; E83.39 Other disorders of phosphorus metabolism; E83.51 Hypocalcemia; E86.0 Dehydration; E86.1 Hypovolemia; F17.210 Nicotine dependence, cigarettes, uncomplicated; F31.9 Bipolar disorder, unspecified; G47.00 Insomnia, unspecified; I10 Essential (primary) hypertension; K21.0 Gastro-esophageal reflux disease with esophagitis; K59.00 Constipation, unspecified; Z79.899 Other long term (current) drug therapy; Z83.3 Family history of diabetes mellitus; R19.7 Diarrhea, unspecified; Z83.79 Family history of other diseases of the digestive system; Z82.0 Family history of epilepsy and other diseases of the nervous system; F41.9 Anxiety disorder, unspecified; Z88.0 Allergy status to penicillin; Z87.81 Personal history of (healed) traumatic fracture; H92.09 Otalgia, unspecified ear; E10.43 Type 1 diabetes mellitus with diabetic autonomic (poly)neuropathy; E10.65 Type 1 diabetes mellitus with hyperglycemia; K31.84 Gastroparesis
CPT/HCPCS: 36415; 43235; 74018; 76705; 80048; 80051; 80053; 81003; 82009; 82150; 82565; 82803; 82947; 83036; 83690; 83735; 83930; 84100; 84520; 85025; 87040; 87502; 90686; 93005; 94640; 96361; 96374; 96375; 96376; 99291

== ENCOUNTER 2019-12-24 20:32 | Emergency (ER) | payer OTHER ==
[2019-12-24 20:50] VITALS: BP 112/78; PULSE 94; RESP 16; TEMP 97.9
[2019-12-24] MEDS ORDERED: LIDOCAINE 1% INJ 10MG/ML (20 ML MDV) SQ ONE (21:06)
--- NOTE | 2019-12-24 22:05 | ED ---
Wound/Laceration HPI - General Source: patient Mode of arrival: ambulatory Limitations: no limitations <Glenn Chen - Last Filed: 12/24/19 22:02> <Isabella Rogers - Last Filed: 12/25/19 13:39> - General Chief Complaint: Wound/Laceration Stated Complaint: IHS LT finger lac Time Seen by Provider: 12/24/19 21:06 - History of Present Illness Initial Comments: Patient is a 34-year-old male presenting to the emergency department with a chief complaint of a finger laceration. Patient reports he was at work and [employer] when he lacerated the distal end of his left index finger. Patient reports there is minimal pain. States he attempted to glue it together but it did not work. States his tetanus is up-to-date. Denies any numbness or tingling. Denies any alleviating or aggravating factors. Does not use blood thinners. (Glenn Chen) - Related Data Home Medications Medication Instructions Recorded Confirmed Albuterol Inhaler (Mhu) [Ventolin 2 puff INHALATION RT-QID 03/17/18 03/17/18 Hfa Inhaler (Mhu)] Amitriptyline HCl [Elavil] 10 mg PO HS 03/17/18 03/17/18 Gabapentin [Neurontin] 100 mg PO TID 03/17/18 03/17/18 Ipratropium [place] [Atrovent Hfa] 2 puff INHALATION RT-QID 03/17/18 03/17/18 Loratadine [Claritin] 10 mg PO DAILY 03/17/18 03/17/18 Zolpidem [Ambien] 10 mg PO HS PRN 03/17/18 03/17/18 lisinopriL [Zestril] 5 mg PO DAILY 03/17/18 03/17/18 tiZANidine [Zanaflex] 4 mg PO DIRECTED PRN 03/17/18 03/17/18 Previous Rx's Medication Instructions Recorded Acetaminophen Oral Susp [Tylenol] 960 mg PO AC-TID cup 03/22/18 INSULIN ASPART (NovoLOG) [NovoLOG 8 unit SQ AC-TID #1 vial 03/22/18 (formulary)] Insulin Detemir (Levemir) [Levemir] 20 unit SQ HS #1 syr 03/22/18 Omeprazole 40 mg PO DAILY #30 capsule. 03/22/18 Allergies Allergy/AdvReac Type Severity Reaction Status Date / Time Penicillins Allergy Unknown Verified 12/24/19 20:49 Review of Systems ROS Other: All systems not noted in ROS Statement are negative. <Glenn Chen - Last Filed: 12/24/19 22:02> ROS Other: All systems not noted in ROS Statement are negative. <Isabella Rogers - Last Filed: 12/25/19 13:39> ROS Statement: Those systems with pertinent positive or pertinent negative responses have been documented in the HPI. Past Medical History Past Medical History: Diabetes Mellitus, Hypertension, Renal Disease Additional Past Medical History / Comment(s): Pt had recent upper respiratory infection and was on antibiotics/steroids for this, IDDM type I, past DKA about 1.5 yrs ago, neuropathy bilateral legs and runs up L side of body/L arm, hand and L side of face, L eye diabetic retinopathy, diabetic nephropathy-elevated urine protein, benign nasal polyp History of Any Multi-Drug Resistant Organisms: None Reported Past Surgical History: Tonsillectomy Additional Past Surgical History / Comment(s): Closed reduction nasal bone fracture with fixation septoplasty/open reduction L malary zygomatic arch fracture. Past Anesthesia/Blood Transfusion Reactions: No Reported Reaction Past Psychological History: Anxiety, Bipolar, Depression Smoking Status: Former smoker Past Alcohol Use History: None Reported Past Drug Use History: None Reported - Past Family History Father Family Medical History: No Reported History Additional Family Medical History / Comment(s): Father is healthy Mother Family Medical History: Diabetes Mellitus Additional Family Medical History / Comment(s): Gastric ulcer, one leg shorter, neuropathy involving arms. <Glenn Chen - Last Filed: 12/24/19 22:02> General Exam Limitations: no limitations General appearance: alert, in no apparent distress Head exam: Present: atraumatic, normocephalic, normal inspection Eye exam: Present: normal appearance, PERRL, EOMI. Absent: scleral icterus, conjunctival injection, periorbital swelling ENT exam: Present: normal exam, mucous membranes moist Neck exam: Present: normal inspection. Absent: tenderness, meningismus, lymphadenopathy Respiratory exam: Present: normal lung sounds bilaterally. Absent: respiratory distress, wheezes, rales, rhonchi, stridor Cardiovascular Exam: Present: regular rate, normal rhythm, normal heart sounds. Absent: systolic murmur, diastolic murmur, rubs, gallop, clicks GI/Abdominal exam: Present: soft, normal bowel sounds. Absent: distended, tenderness, guarding, rebound, rigid Extremities exam: Present: full ROM, tenderness (Tenderness at the site of injury.), normal capillary refill, other (+2 ulnar radial pulses bilateral. Sensation intact.). Absent: normal inspection (Laceration at the distal end of the left index finger measuring approximately centimeters in length.) Back exam: Present: normal inspection, full ROM Neurological exam: Present: alert, oriented X3 Psychiatric exam: Present: normal affect, normal mood Skin exam: Present: warm, dry, intact, normal color <Glenn Chen - Last Filed: 12/24/19 22:02> Course Vital Signs 12/24/19 20:46 Temperature 97.9 F Pulse Rate 94 Respiratory 16 Rate Blood Pressure 112/78 O2 Sat by Pulse 97 Oximetry Procedures - Laceration Laceration #1 Consent Obtained: verbal consent Indication: laceration Site: hand (Left index digit) Size (cm): 2 Description: linear, clean Depth: simple, single layer Sedation/Analgesia: none Anesthetic Used: lidocaine 1% Anesthesia Technique: nerve block (Digital) Amount (mls): 5 Pre-repair: irrigated extensively, deep structures intact Type of Sutures: nylon Size of Sutures: 4-0 Number of Sutures: 4 Technique: simple, interrupted Patient Tolerated Procedure: well, no complications - Nerve Block Consent Obtained: verbal consent Local Anesthetic Used: Lidocaine 1% Amount of anesthesia used: 5 Side: left Nerve Blocks: digital (Left index) Procedure Successful: Yes Complications: none Patient Tolerated Procedure: well, no complications <Glenn Chen - Last Filed: 12/24/19 22:02> Medical Decision Making <Glenn Chen - Last Filed: 12/24/19 22:02> <Isabella Rogers - Last Filed: 12/25/19 13:39> - Medical Decision Making Patient is 34-year-old male presenting to the emergency department with a chief complaint of laceration. Patient is a laceration of the left index finger. This is about 2 cm in length. Laceration site was repaired with 4 sutures. Patient tolerated procedure well. Laceration site was thoroughly cleaned. Tetanus is up-to-date. Neurovascularly intact. Advised to return in 7-10 days. Case discussed physician. (Glenn Chen) I was available for consultation in the emergency department. The history and physical exam were done by the midlevel provider. [facility] I reviewed the case with the midlevel provider and based on their presentation of the patient, I agree with the assessment, medical decision making and plan of care as documented. Chart was dictated using [employer] dictation software. Attempts were made to correct any dictation errors however some typographical errors may persist. Patient was seen during a national state of emergency due to the Covid-19 pandemic. (Isabella Rogers) Disposition Is patient prescribed a controlled substance at d/c from ED?: No Time of Disposition: 22:05 <Glenn Chen - Last Filed: 12/24/19 22:02> <Isabella Rogers - Last Filed: 12/25/19 13:39> Clinical Impression: Laceration Disposition: HOME SELF-CARE Condition: Stable Instructions (If sedation given, give patient instructions): Care For Your Stitches (DC), Laceration (DC) Additional Instructions: Return to emergency department if symptoms worsen. Return in 7-10 days for suture removal. Referrals: Yasmeen Parrish MD [Primary Care Provider] - 1-2 days
== END 2019-12-24 22:10 | disposition home or self-care (01) ==
LOC: EC 20:32
DX: S61.211A Laceration without foreign body of left index finger without damage to nail, initial encounter (principal); F41.9 Anxiety disorder, unspecified; F31.9 Bipolar disorder, unspecified; I10 Essential (primary) hypertension; Z79.899 Other long term (current) drug therapy; Z88.0 Allergy status to penicillin; Z87.891 Personal history of nicotine dependence; W26.8XXA Contact with other sharp object(s), not elsewhere classified, initial encounter; Y92.69 Other specified industrial and construction area as the place of occurrence of the external cause; Y99.0 Civilian activity done for income or pay
CPT/HCPCS: 12001; 99282; J2001

== ENCOUNTER 2020-05-27 15:49 | Emergency (ER) | payer OTHER ==
[2020-05-27 16:13] VITALS: BP 110/73; PULSE 106; RESP 18; TEMP 98.1
--- NOTE | 2020-05-27 16:25 | ED ---
Lower Extremity Injury HPI - General Chief Complaint: Extremity Injury, Lower Stated Complaint: Fall, L Leg Injury Time Seen by Provider: 05/27/20 16:14 Source: patient Mode of arrival: ambulatory Limitations: no limitations - History of Present Illness Initial Comments: Patient is a 34-year-old male presenting to the emergency Department with complaints of pain in his left knee and ankle after he slipped and fell yesterday. Patient states she was trying to take out his dog when he slipped on his steps from the ice, he fell with his right leg going forward in his left leg going backward. Patient states his knee bent in a "weird direction." Patient states he woke up this morning with significant pain of his left knee, unable to bend it without significant pain. He also has pain of his lateral aspect of the left ankle. He denies any previous surgeries or injuries of his left lower leg. He denies hitting his head, he denies any other injuries from this fall. He has not taken anything for discomfort. He has no further complaints at this time. Upon arrival to the ER his vital signs stable. - Related Data Home Medications Medication Instructions Recorded Confirmed Albuterol Inhaler (Mhu) [Ventolin 2 puff INHALATION RT-QID 03/17/18 03/17/18 Hfa Inhaler (Mhu)] Amitriptyline HCl [Elavil] 10 mg PO HS 03/17/18 03/17/18 Gabapentin [Neurontin] 100 mg PO TID 03/17/18 03/17/18 Ipratropium [place] [Atrovent Hfa] 2 puff INHALATION RT-QID 03/17/18 03/17/18 Loratadine [Claritin] 10 mg PO DAILY 03/17/18 03/17/18 Zolpidem [Ambien] 10 mg PO HS PRN 03/17/18 03/17/18 lisinopriL [Zestril] 5 mg PO DAILY 03/17/18 03/17/18 tiZANidine [Zanaflex] 4 mg PO DIRECTED PRN 03/17/18 03/17/18 Previous Rx's Medication Instructions Recorded Acetaminophen Oral Susp [Tylenol] 960 mg PO AC-TID cup 03/22/18 INSULIN ASPART (NovoLOG) [NovoLOG 8 unit SQ AC-TID #1 vial 03/22/18 (formulary)] Insulin Detemir (Levemir) [Levemir] 20 unit SQ HS #1 syr 03/22/18 Omeprazole 40 mg PO DAILY #30 capsule. 03/22/18 Allergies Allergy/AdvReac Type Severity Reaction Status Date / Time Penicillins Allergy Unknown Verified 05/27/20 16:12 Review of Systems ROS Statement: Those systems with pertinent positive or pertinent negative responses have been documented in the HPI. ROS Other: All systems not noted in ROS Statement are negative. Past Medical History Past Medical History: Diabetes Mellitus, Hypertension, Renal Disease Additional Past Medical History / Comment(s): Pt had recent upper respiratory infection and was on antibiotics/steroids for this, IDDM type I, past DKA about 1.5 yrs ago, neuropathy bilateral legs and runs up L side of body/L arm, hand and L side of face, L eye diabetic retinopathy, diabetic nephropathy-elevated urine protein, benign nasal polyp History of Any Multi-Drug Resistant Organisms: None Reported Past Surgical History: Tonsillectomy Additional Past Surgical History / Comment(s): Closed reduction nasal bone fracture with fixation septoplasty/open reduction L malary zygomatic arch f racture. Past Anesthesia/Blood Transfusion Reactions: No Reported Reaction Past Psychological History: Anxiety, Bipolar, Depression Smoking Status: Former smoker Past Alcohol Use History: None Reported Past Drug Use History: None Reported - Past Family History Father Family Medical History: No Reported History Additional Family Medical History / Comment(s): Father is healthy Mother Family Medical History: Diabetes Mellitus Additional Family Medical History / Comment(s): Gastric ulcer, one leg shorter, neuropathy involving arms. General Exam - General Exam Comments Initial Comments: GENERAL: Patient is well-developed and well-nourished. Patient is nontoxic and in mild distress. HEAD: Atraumatic, normocephalic. EYES: Pupils equal round and reactive to light, extraocular movements intact, sclera anicteric, conjunctiva are normal. Eyelids were unremarkable. ENT: TMs normal, nares patent, oropharynx clear without exudates. Moist mucous membranes. NECK: Normal range of motion, supple without lymphadenopathy or JVD. LUNGS: Unlabored respirations. Breath sounds clear to auscultation bilaterally and equal. No wheezes rales or rhonchi. HEART: Regular rate and rhythm without murmurs, rubs or gallops. ABDOMEN: Soft, nontender, normoactive bowel sounds. No guarding, no rebound. No masses appreciated. : Deferred MUSCULOSKELETAL: The patient has pain with palpation of the left anterior knee, patient is not willing to do any kind of active range of motion secondary to pain. He does have some very mild swelling noted, no obvious deformity. He is neurovascular intact bilateral lower extremities. He does also have pain of the left lateral malleolus, again no deformity or swelling of the ankle. Patient has full range of motion of the left toes, left ankle. No clubbing or cyanosis. NEUROLOGICAL: Patient is alert and oriented x 3. Motor and sensory are also intact. Cranial nerves II through XII grossly intact. Symmetrical smile. Normal speech. PSYCH: Normal mood, normal affect. SKIN: Warm, Dry, normal turgor, no rashes or lesions noted. Limitations: no limitations Course Vital Signs 05/27/20 16:10 Temperature 98.1 F Pulse Rate 106 H Respiratory 18 Rate Blood Pressure 110/73 O2 Sat by Pulse 98 Oximetry Medical Decision Making - Medical Decision Making Patient is a 34-year-old male here for left knee and left ankle pain after he slipped and fell at his house last night. No previous injuries of the left lower extremity. X-rays of the left knee, left tib-fib and left ankle reveal no acute fractures or dislocations. I discussed with patient that his ankle pain is most likely an ankle sprain. His knee could have some internal derangement such as a meniscus injury or ligament injury. I do recommend following up with orthopedics. Patient states [facility] and wishes to go with them. I will give him referral. Patient needs to alternate between Tylenol and Motrin for discomfort, he can apply ice to the knee. Patient is in agreement this plan of care. He is stable for discharge. Case discussed with Dr. Bell. Disposition Clinical Impression: Left ankle sprain, Left knee pain Disposition: HOME SELF-CARE Condition: Stable Instructions (If sedation given, give patient instructions): Knee Sprain (ED), Ankle Sprain (ED) Additional Instructions: Please return to the Emergency Department if symptoms worsen or any other concerns. Recommend alternating preteen Tylenol and Motrin for discomfort. Apply ice to the knee for 20 minutes at a time. Please follow up with orthopedics as discussed. Is patient prescribed a controlled substance at d/c from ED?: No Referrals: Yasmeen Parrish MD [Primary Care Provider] - 1-2 days Joseph Thomas DO [Doctor of Osteopathic Medicine] - 1-2 days
--- NOTE | 2020-05-27 17:08 | XR ---
EXAMINATION TYPE: XR ankle complete LT DATE OF EXAM: 05/27/2020 COMPARISON: NONE HISTORY: Ankle pain TECHNIQUE: 3 views FINDINGS: Ankle mortise is anatomic. I see no fracture nor dislocation. Joint spaces are normal. IMPRESSION: Negative left ankle exam.
--- NOTE | 2020-05-27 17:09 | XR ---
EXAMINATION TYPE: XR tibia fibula LT DATE OF EXAM: 05/27/2020 COMPARISON: NONE HISTORY: Pain TECHNIQUE: 3 views FINDINGS: I see no fracture nor dislocation. Tibia and fibula appear intact. Knee joint and ankle rafael nt appear intact. IMPRESSION: Negative left tibia and fibula exam.
--- NOTE | 2020-05-27 17:10 | XR ---
EXAMINATION TYPE: XR knee complete LT DATE OF EXAM: 05/27/2020 COMPARISON: NONE HISTORY: Pain TECHNIQUE: Previews FINDINGS: I see no fracture nor dislocation. Joint spaces are normal. There is no sign of joint effus ion. IMPRESSION: Negative left knee exam.
[2020-05-27] MEDS ORDERED: IBUPROFEN 600 MG TAB PO STA (17:22)
== END 2020-05-27 17:37 | disposition home or self-care (01) ==
LOC: EC 15:49
DX: S93.402A Sprain of unspecified ligament of left ankle, initial encounter (principal); M25.562 Pain in left knee; F41.9 Anxiety disorder, unspecified; F31.9 Bipolar disorder, unspecified; I10 Essential (primary) hypertension; Z79.899 Other long term (current) drug therapy; Z88.0 Allergy status to penicillin; Z87.891 Personal history of nicotine dependence; W00.1XXA Fall from stairs and steps due to ice and snow, initial encounter; Y93.K9 Activity, other involving animal care
CPT/HCPCS: 99283

== ENCOUNTER 2021-07-25 19:23 | Inpatient (IN) | payer OTHER ==
[2021-07-25] MEDS ORDERED: ONDANSETRON 4 MG/2 ML VIAL IVP STA (19:47)
[2021-07-25] MEDS ORDERED: SODIUM CHLORIDE 0.9% 1,000 ML IV STA (19:47)
[2021-07-25] MEDS ORDERED: KETOROLAC 15 MG/ML 1 ML VIAL IVP STA (19:50)
[2021-07-25] MEDS ORDERED: ACETAMINOPHEN TAB 325 MG TAB PO STA (19:55)
[2021-07-25] MEDS ORDERED: VANCOMYCIN IV PER PHARMACY 1 EACH MISC MISCELLANE PRN (20:21)
[2021-07-25] MEDS ORDERED: VANCOMYCIN 1,500 MG in SODIUM CHLORIDE 0.9% 250 ML IVPB STA (20:25)
--- NOTE | 2021-07-25 20:34 | ED ---
General Adult HPI <Dwayne Solis - Last Filed: 07/25/21 23:08> - General Source: patient Mode of arrival: wheelchair <Patricia Barton - Last Filed: 07/26/21 00:18> - General Chief complaint: Nausea/Vomiting/Diarrhea Stated complaint: Rt Foot Pain,Swelling.N/V Time Seen by Provider: 07/25/21 19:40 - History of Present Illness Initial comments: Patient is a 35-year-old male with past medical history of type 1 diabetes with neuropathy presenting with chief complaint of foot pain, redness, swelling. His partner at bedside states that on Thursday they pulled a small pebble out of the bottom of his foot. The following day he was evaluated and treated for cellulitis with Bactrim. Today he is on day 3 of treatment and states that his infection is been getting much worse. The redness and swelling is spreading up the foot and patient is complaining of nausea and vomiting. He admits to fever and abdominal pain which is diffuse and radiates to the back at all locations. Patient has baseline neuropathy. Patient is able to move the foot, admits to pain with range of motion and ambulation. He denies chest pain, shortness of breath, headache, vision or hearing changes, weakness, palpitations, syncope, seizure. (Patricia Barton) - Related Data Home Medications Medication Instructions Recorded Confirmed Amitriptyline HCl [Elavil] 10 mg PO HS 03/17/18 07/25/21 Loratadine [Claritin] 10 mg PO DAILY 03/17/18 07/25/21 Acetaminophen Tab [Tylenol Tab] 500 mg PO BID PRN 07/25/21 07/25/21 Albuterol Sulfate [Ventolin HFA] 2 puff INHALATION RT-Q6H PRN 07/25/21 07/25/21 Baclofen [Lioresal] 10 mg PO TID PRN 07/25/21 07/25/21 Budesonide/Formoterol Fumarate 2 puff INHALATION RT-BID 07/25/21 07/25/21 [Symbicort 160-4.5 Mcg Inhaler] Gabapentin [Neurontin] 100 mg PO DIRECTED 07/25/21 07/25/21 INSULIN ASPART (NovoLOG) [NovoLOG 8 unit SQ AC-TID 07/25/21 07/25/21 (formulary)] Insulin Detemir (Levemir) [Levemir] 30 unit SQ HS 07/25/21 07/25/21 Montelukast [Singulair] 10 mg PO DAILY 07/25/21 07/25/21 Naproxen 500 mg PO BID-W/MEALS PRN 07/25/21 07/25/21 Ondansetron Odt [Zofran Odt] 4 mg PO Q12HR PRN 07/25/21 07/25/21 Sertraline [Zoloft] 100 mg PO DAILY 07/25/21 07/25/21 Sulfamethox-Tmp 800-160Mg [Bactrim 1 tab PO BID 07/25/21 07/25/21 DS 800-160 mg] Tiotropium 18 Mcg/Puff [Spiriva] 1 puff INHALATION RT-DAILY 07/25/21 07/25/21 traZODone HCL 50 mg PO HS PRN 07/25/21 07/25/21 Allergies Allergy/AdvReac Type Severity Reaction Status Date / Time Penicillins Allergy Unknown Verified 07/25/21 22:05 Childhood Review of Systems ROS Other: All systems not noted in ROS Statement are negative. <Dwayne Solis - Last Filed: 07/25/21 23:08> ROS Other: All systems not noted in ROS Statement are negative. <Patricia Barton - Last Filed: 07/26/21 00:18> ROS Statement: Those systems with pertinent positive or pertinent negative responses have been documented in the HPI. Past Medical History Past Medical History: Diabetes Mellitus, Hypertension, Renal Disease Additional Past Medical History / Comment(s): Pt had recent upper respiratory infection and was on antibiotics/steroids for this, IDDM type I, past DKA about 1.5 yrs ago, neuropathy bilateral legs and runs up L side of body/L arm, hand a nd L side of face, L eye diabetic retinopathy, diabetic nephropathy-elevated urine protein, benign nasal polyp History of Any Multi-Drug Resistant Organisms: None Reported Past Surgical History: Tonsillectomy Additional Past Surgical History / Comment(s): Closed reduction nasal bone fracture with fixation septoplasty/open reduction L malary zygomatic arch fracture. Past Anesthesia/Blood Transfusion Reactions: No Reported Reaction Past Psychological History: Anxiety, Bipolar, Depression Smoking Status: Former smoker Past Alcohol Use History: None Reported Past Drug Use History: None Reported - Past Family History Father Family Medical History: No Reported History Additional Family Medical History / Comment(s): Father is healthy Mother Family Medical History: Diabetes Mellitus Additional Family Medical History / Comment(s): Gastric ulcer, one leg shorter, neuropathy involving arms. <Patricia Barton - Last Filed: 07/26/21 00:18> General Exam Limitations: no limitations General appearance: alert, in distress Head exam: Present: atraumatic, normocephalic, normal inspection Neck exam: Present: normal inspection Respiratory exam: Present: normal lung sounds bilaterally. Absent: respiratory distress, wheezes, rales, rhonchi, stridor Cardiovascular Exam: Present: regular rate, normal rhythm, normal heart sounds. Absent: systolic murmur, diastolic murmur, rubs, gallop, clicks GI/Abdominal exam: Present: soft, tenderness (Diffuse), normal bowel sounds. Absent: distended, guarding, rebound, rigid Right Foot/Toe exam: Present: tenderness, swelling, erythema, puncture wound. Absent: normal inspection, full ROM Neurovascular tendon exam: Present: no vascular compromise Neurological exam: Present: alert, oriented X3, CN II-XII intact Psychiatric exam: Present: normal affect, normal mood Skin exam: Present: warm, dry, intact, normal color. Absent: rash <Patricia Barton - Last Filed: 07/26/21 00:18> Course Vital Signs 07/25/21 07/25/21 07/25/21 19:27 21:00 22:09 Temperature 100.4 F H 101.5 F H 99 F Pulse Rate 101 H 95 Respiratory 18 22 Rate Blood Pressure 119/72 107/66 O2 Sat by Pulse 96 96 Oximetry 07/25/21 23:00 Temperature Pulse Rate 94 Respiratory 20 Rate Blood Pressure 106/76 O2 Sat by Pulse 97 Oximetry Medical Decision Making - Lab Data Result diagrams: 07/25/21 20:56 07/25/21 20:56 <Dwayne Solis - Last Filed: 07/25/21 23:08> - Lab Data Result diagrams: 07/25/21 20:56 07/25/21 20:56 - Radiology Data Radiology results: report reviewed, image reviewed <Patricia Barton - Last Filed: 07/26/21 00:18> - Medical Decision Making I saw this patient in conjunction with the physician maintenance assistant. I performed independent history and physical exam. Agree with case management. Disposition and over 50% of MDM (Dwayne Solis) Patient is a 35-year-old male with history of type 1 diabetes with neuropathy presenting with chief complaint of infection of the right foot. 4 days ago the patient removed a small palpable from the bottom of his foot, the following day he was evaluated and placed on Bactrim for cellulitis. Patient states that after 3 days of treatment the redness, swelling, pain has not improved and only worsened. He is also complaining of nausea, vomiting, and diffuse abdominal pain. On examination he is febrile and slightly tachycardic. There is redness and swelling along the dorsal and plantar surface of the right foot as well as the ankle. X-ray of the foot shows subcutaneous gas emphysema. KUB x-ray shows no acute radiographic process. Patient received 1 L normal saline fluid bolus, maintenance fluid rate of 138 mL/hr. patient was given vancomycin dosed by pharmacy, levofloxacin 750 mg, metronidazole 500 mg. Patient was then admitted for diabetic foot infection. I spoke with Loyda Juares from [facility] hospitalist group who agreed to admit the patient. Infectious disease was consulted. Podiatry was consulted. General surgery was consulted, I spoke with Dr. Wolf who declined consult. I discussed the plan with the patient, they conveyed verbal understanding and agreed to the plan. I discussed this case with my attending Dr. Solis. (Patricia Barton) - Lab Data Lab Results 07/25/21 07/25/21 07/25/21 Range/Units 20:56 20:56 21:18 WBC 19.2 H (3.8-10.6) k/uL RBC 4.02 L (4.30-5.90) m/uL Hgb 12.6 L (13.0-17.5) gm/dL Hct 38.3 L (39.0-53.0) % MCV 95.3 (80.0-100.0) fL MCH 31.4 (25.0-35.0) pg MCHC 32.9 (31.0-37.0) g/dL RDW 12.0 (11.5-15.5) % Plt Count 333 (150-450) k/uL MPV 9.5 Neutrophils % 89 % Lymphocytes % 4 % Monocytes % 6 % Eosinophils % 1 % Basophils % 1 % Neutrophils # 17.1 H (1.3-7.7) k/uL Lymphocytes # 0.7 L (1.0-4.8) k/uL Monocytes # 1.1 H (0-1.0) k/uL Eosinophils # 0.2 (0-0.7) k/uL Basophils # 0.1 (0-0.2) k/uL ESR 93 H (0-15) mm/hr Sodium 132 L (137-145) mmol/L Potassium 4.6 (3.5-5.1) mmol/L Chloride 95 L (98-107) mmol/L Carbon Dioxide 27 (22-30) mmol/L Anion Gap 10 mmol/L BUN 6 L (9-20) mg/dL Creatinine 0.80 (0.66-1.25) mg/dL Est GFR (CKD-EPI)AfAm >90 (>60 ml/min/1.73 sqM) Est GFR (CKD-EPI)NonAf >90 (>60 ml/min/1.73 sqM) Glucose 259 H (74-99) mg/dL POC Glucose (mg/dL) (75-99) mg/dL POC Glu Coater Carbon Paper ID Plasma Lactic Acid Sanjay 1.6 (0.7-2.0) mmol/L Calcium 9.1 (8.4-10.2) mg/dL Total Bilirubin 0.7 (0.2-1.3) mg/dL AST 21 (17-59) U/L ALT 18 (4-49) U/L Alkaline Phosphatase 162 H (38-126) U/L C-Reactive Protein 26.7 H (<1.0) mg/dL Total Protein 7.7 (6.3-8.2) g/dL Albumin 4.1 (3.5-5.0) g/dL Amylase 35 (30-110) U/L Lipase 12 L (23-300) U/L Coronavirus (PCR) (Not Detectd) 07/25/21 07/25/21 Range/Units 22:57 23:16 WBC (3.8-10.6) k/uL RBC (4.30-5.90) m/uL Hgb (13.0-17.5) gm/dL Hct (39.0-53.0) % MCV (80.0-100.0) fL MCH (25.0-35.0) pg MCHC (31.0-37.0) g/dL RDW (11.5-15.5) % Plt Count (150-450) k/uL MPV Neutrophils % % Lymphocytes % % Monocytes % % Eosinophils % % Basophils % % Neutrophils # (1.3-7.7) k/uL Lymphocytes # (1.0-4.8) k/uL Monocytes # (0-1.0) k/uL Eosinophils # (0-0.7) k/uL Basophils # (0-0.2) k/uL ESR (0-15) mm/hr Sodium (137-145) mmol/L Potassium (3.5-5.1) mmol/L Chloride (98-107) mmol/L Carbon Dioxide (22-30) mmol/L Anion Gap mmol/L BUN (9-20) mg/dL Creatinine (0.66-1.25) mg/dL Est GFR (CKD-EPI)AfAm (>60 ml/min/1.73 sqM) Est GFR (CKD-EPI)NonAf (>60 ml/min/1.73 sqM) Glucose (74-99) mg/dL POC Glucose (mg/dL) 288 H (75-99) mg/dL POC Glu Coater Carbon Paper ID Arsh Jones Plasma Lactic Acid Sanjay (0.7-2.0) mmol/L Calcium (8.4-10.2) mg/dL Total Bilirubin (0.2-1.3) mg/dL AST (17-59) U/L ALT (4-49) U/L Alkaline Phosphatase (38-126) U/L C-Reactive Protein (<1.0) mg/dL Total Protein (6.3-8.2) g/dL Albumin (3.5-5.0) g/dL Amylase (30-110) U/L Lipase (23-300) U/L Coronavirus (PCR) Not Detected (Not Detectd) - Radiology Data X-ray of the right foot shows a 1 cm immediately subcutaneous gas bubble lateral to the fifth metatarsal mid shaft, associated with prominent soft tissue swelling which appears to be circumferential to the metatarsals. In addition the oblique view shows another subcutaneous gas bubble just lateral to the fifth MTP articulation, prominent associated soft tissue swelling. Finally, this oblique PE shows evidence of a linear array of tiny soft tissue emphysema, terminating posteriorly from the 1 cm gas bubble previously described. No acute radiographic process of the bones and joints. (Patricia Barton) Disposition <Dwayne Solis - Last Filed: 07/25/21 23:08> Time of Disposition: 22:42 Decision to Admit Reason: Admit from EC Decision Date: 07/25/21 Decision Time: 22:42 <Patricia Barton - Last Filed: 07/26/21 00:18> Clinical Impression: Diabetic foot infection Disposition: ADMITTED IP TO THIS HOSP Condition: Fair Referrals: Yasmeen Parrish MD [Primary Care Provider] - 1-2 days
[2021-07-25 21:21] LABS: Basophils # (A) 0.1 k/uL (0-0.2); Basophils % (A) 1 %; Eosinophils # (A) 0.2 k/uL (0-0.7); Eosinophils % (A) 1 %; HCT 38.3 % (39.0-53.0); HGB 12.6 gm/dL (13.0-17.5); Lymphocytes # (A) 0.7 k/uL (1.0-4.8); Lymphocytes % (A) 4 %; MCH 31.4 pg (25.0-35.0); MCHC 32.9 g/dL (31.0-37.0); MCV 95.3 fL (80.0-100.0); Mean Platelet Volume 9.5; Monocytes # (A) 1.1 k/uL (0-1.0); Monocytes % (A) 6 %; Neutrophils # (A) 17.1 k/uL (1.3-7.7); Neutrophils % (A) 89 %; Platelet Count 333 k/uL (150-450); RBC 4.02 m/uL (4.30-5.90); WBC 19.2 k/uL (3.8-10.6)
[2021-07-25 21:36] LABS: ALT 18 U/L (4-49); AST 21 U/L (17-59); African American GFR (CKD) >90 (>60 ml/min/1.73 sqM); Albumin 4.1 g/dL (3.5-5.0); Alkaline Phosphatase 162 U/L (38-126); Amylase 35 U/L (30-110); Anion Gap 10 mmol/L; Blood Urea Nitrogen 6 mg/dL (9-20); Calcium 9.1 mg/dL (8.4-10.2); Carbon Dioxide 27 mmol/L (22-30); Chloride 95 mmol/L (98-107); Glucose 259 mg/dL (74-99); Lipase 12 U/L (23-300); Non-African American GFR(CKD) >90 (>60 ml/min/1.73 sqM); Potassium 4.6 mmol/L (3.5-5.1); Sodium 132 mmol/L (137-145); Total Bilirubin 0.7 mg/dL (0.2-1.3); Total Protein 7.7 g/dL (6.3-8.2)
--- NOTE | 2021-07-25 21:36 | XR ---
PROCEDURE: XR foot complete RT - 3V DATE AND TIME: 07/25/2021 8:24 PM CLINICAL INDICATION: Right foot pain and swelling and redness, febrile TECHNIQUE: Department protocol COMPARISON: None FINDINGS: The bones and joints are unremarkable. However, there is a 1 cm immediately subcutaneous gas bubble lateral to the fifth metatarsal midshaft , associated with prominent soft tissue swelling which appears to be circumferential to the metatarsa ls. In addition, the oblique view shows another subcutaneous gas bubble just lateral to the fifth MTP articulation, prominent associated soft tissue swelling. Finally, this oblique view shows evidence o f a linear array of tiny soft tissue emphysema, terminating posteriorly from the 1 cm gas bubble prev iously described. These findings can be further characterized using MRI with contrast. IMPRESSION: 1. Bones and joints: No acute radiographic process. 2. Soft Tissues: Radiographic findings consistent with soft tissue infection.
--- NOTE | 2021-07-25 21:42 | XR ---
EXAMINATION TYPE: XR KUB 2V DATE OF EXAM: 07/25/2021 8:24 PM CLINICAL HISTORY: nausea, vomiting TECHNIQUE: 2 upright views COMPARISON: 03/17/18 FINDINGS: Scattered gas is seen in non-distended small bowel loops. Gas and fecal material is seen in non-distended colon. There is no visceromegaly, pneumoperitoneum, or abnormal calcification apprecia can. The lung bases are clear and the osseous structures are intact. IMPRESSION: No acute radiographic process.
[2021-07-25] MEDS ORDERED: metroNIDAZOLE-NS PMX 500 MG in SALINE 1 100ML.BAG IVPB STA (22:00)
[2021-07-25] MEDS ORDERED: LEVOFLOXACIN 750MG-D5W PMX 750 MG in DEXTROSE/WATER 1 150ML.BAG IVPB STA (22:01)
[2021-07-25] MEDS ORDERED: ACETAMINOPHEN TAB 325 MG TAB PO PRN (22:04)
[2021-07-25] MEDS ORDERED: NALOXONE 0.4 MG/ML 1 ML VIAL IV PRN (22:04)
[2021-07-25 22:07] LABS: C Reactive Protein 26.7 mg/dL (<1.0)
[2021-07-25 22:29] LABS: Erythrocyte Sedimentation Rate 93 mm/hr (0-15)
[2021-07-25] MEDS: SODIUM CHLORIDE 0.9% 1,000 ML IV SCH (22:32)
[2021-07-25 23:01] LABS: Glucose,Whole Blood 288 mg/dL (75-99)
[2021-07-26] MEDS: KETOROLAC 15 MG/ML 1 ML VIAL IVP PRN ×4 (00:59→21:48)
[2021-07-26] MEDS: MORPHINE SULFATE 4 MG/ML SYRINGE IV PRN ×5 (01:00→23:21)
[2021-07-26 01:25] LABS: Appearance,Urine Cloudy (Clear); Bilirubin,Urine Negative (Negative); Blood,Urine Negative (Negative); Color,Urine Yellow; Glucose,Urine (UA) 4+ (Negative); Hyaline Casts,Urine 10 /lpf (0-2); Leukocyte Esterase,Urine Negative (Negative); Mucus,Urine Moderate /hpf; Nitrite,Urine Negative (Negative); PH, Urine 5.5 (5.0-8.0); Protein,Urine 2+ (Negative); RBC,Urine 3 /hpf (0-5); Specific Gravity,Urine 1.035 (1.001-1.035); Squamous Epithelial Cell,Urine <1 /hpf (0-4); Urobilinogen,Urine <2.0 mg/dL (<2.0); WBC,Urine 3 /hpf (0-5)
[2021-07-26 01:27] LABS: Ketones,Urine 3+ (Negative)
[2021-07-26 01:44] LABS: Glucose,Whole Blood 403 mg/dL (75-99)
[2021-07-26] MEDS: INSULIN ASPART (NovoLOG) 100 UNIT/ML VIAL SQ SCH ×5 (01:58→21:53)
[2021-07-26] MEDS: ONDANSETRON 4 MG/2 ML VIAL IVP PRN ×4 (01:59→21:49)
[2021-07-26] MEDS ORDERED: traZODone HCL 50 MG TAB PO PRN (03:44)
[2021-07-26] MEDS ORDERED: BACLOFEN 10 MG TAB PO PRN (03:44)
[2021-07-26] MEDS: VANCOMYCIN 1,500 MG in SODIUM CHLORIDE 0.9% 250 ML IVPB SCH ×3 (04:51→22:03)
[2021-07-26 04:56] LABS: Glucose,Whole Blood 294 mg/dL (75-99)
[2021-07-26] MEDS: SODIUM CHLORIDE 0.9% 1,000 ML IV SCH ×3 (06:06→23:21)
[2021-07-26 07:09] LABS: Basophils # (A) 0.1 k/uL (0-0.2); Basophils % (A) 0 %; Eosinophils % (A) 0 %; HCT 38.6 % (39.0-53.0); HGB 12.1 gm/dL (13.0-17.5); Lymphocytes # (A) 1.3 k/uL (1.0-4.8); Lymphocytes % (A) 7 %; MCH 30.7 pg (25.0-35.0); MCHC 31.4 g/dL (31.0-37.0); MCV 97.7 fL (80.0-100.0); Mean Platelet Volume 9.4; Monocytes # (A) 1.1 k/uL (0-1.0); Monocytes % (A) 6 %; Neutrophils # (A) 15.9 k/uL (1.3-7.7); Neutrophils % (A) 85 %; Platelet Count 278 k/uL (150-450); RBC 3.95 m/uL (4.30-5.90); WBC 18.7 k/uL (3.8-10.6)
[2021-07-26 07:54] LABS: Glucose,Whole Blood 386 mg/dL (75-99)
[2021-07-26 08:19] LABS: ALT 15 U/L (4-49); AST 17 U/L (17-59); African American GFR (CKD) >90 (>60 ml/min/1.73 sqM); Albumin 3.2 g/dL (3.5-5.0); Alkaline Phosphatase 141 U/L (38-126); Anion Gap 14 mmol/L; Blood Urea Nitrogen 10 mg/dL (9-20); Calcium 8.3 mg/dL (8.4-10.2); Carbon Dioxide 19 mmol/L (22-30); Chloride 99 mmol/L (98-107); Glucose 317 mg/dL (74-99); Non-African American GFR(CKD) >90 (>60 ml/min/1.73 sqM); Potassium 4.8 mmol/L (3.5-5.1); Sodium 132 mmol/L (137-145); Total Bilirubin 0.9 mg/dL (0.2-1.3); Total Protein 6.2 g/dL (6.3-8.2)
[2021-07-26] MEDS: LORATADINE 10 MG TAB PO SCH (08:38)
[2021-07-26] MEDS: MONTELUKAST 10 MG TAB PO SCH (08:38)
[2021-07-26] MEDS: SERTRALINE 100 MG TAB PO SCH (08:38)
[2021-07-26] MEDS: SYMBICORT 160-4.5 MCG INHALER INHALATION SCH ×2 (09:53→20:10)
[2021-07-26 11:07] LABS: Glucose,Whole Blood 373 mg/dL (75-99)
--- NOTE | 2021-07-26 12:32 | P.HPIM ---
History of Present Illness This is a pleasant 35 years old male with past medical history of insulin- dependent diabetes mellitus, hypertension, diabetic nephropathy number diabetic neuropathy and retinopathy. Presents because of foot infection. Patient has right foot right swollen and tender for the last 4-6 days, rest of his PCP Dr. Granger and then to [facility] where he received oral antibiotics but his infection was getting worse so he decided to come to the hospital, now his right foot is significantly swollen and red and tender especially on the right side. Also has some nausea vomiting this morning but he denies abdominal pain. No diarrhea. No chest pain or dyspnea or coughing. No headache or weakness or numbness. He quit smoking in 2017, alcohol occasional, marijuana he smokes every other day. Patient was on insulin pump but he took it off when he came to the hospital, considering it will not be allowed in the hospital. He is hemodynamically stable. He is tachycardic with heart rate around 115 Labs showed leukocytosis of 19.2, mild anemia with 12.6, rest of CBC is unremarkable. ESR is elevated 93. Sodium 132, rest of the BMP is unremarkable. Glucose elevated at 259. Liver enzymes not elevated. CRP is high 26.7. Urine analysis showing 2+ protein, glucosuria and ketonuria with hyaline cast. Walker virus not detected. Foot x-ray showing no acute radiographic process for the borders and joints but there is evidence of soft tissue infection. KUB showing no acute process On admission was started on Levaquin and Flagyl and IV vancomycin, normal saline Admitted with infectious disease and scallop cutter consult he received several NovoLog doses at 7-8 units, and patient understood around 300 therefore start him on Levemir 10 units Review of Systems CONSTITUTIONAL: No fever, no malaise, no fatigue. HEENT: No recent visual problems or hearing problems. Denied any sore throat. CARDIOVASCULAR: No orthopnea, PND, no palpitations, no syncope. PULMONARY: No shortness of breath, no cough, no hemoptysis. GASTROINTESTINAL: No diarrhea, no nausea, no vomiting, no abdominal pain. Normoactive bowel sounds. NEUROLOGICAL: No headaches, no weakness, no numbness. HEMATOLOGICAL: Denies any bleeding or petechiae. GENITOURINARY: Denies any burning micturition, frequency, or urgency. MUSCULOSKELETAL/RHEUMATOLOGICAL: Denies any joint pain, swelling, or any muscle pain. ENDOCRINE: Denies any polyuria or polydipsia. Past Medical History Past Medical History: Diabetes Mellitus, Hypertension, Renal Disease Additional Past Medical History / Comment(s): Pt had recent upper respiratory infection and was on antibiotics/steroids for this, IDDM type I, past DKA about 1.5 yrs ago, neuropathy bilateral legs and runs up L side of body/L arm, hand and L side of face, L eye diabetic retinopathy, diabetic nephropathy-elevated urine protein, benign nasal polyp History of Any Multi-Drug Resistant Organisms: None Reported Past Surgical History: Tonsillectomy Additional Past Surgical History / Comment(s): Closed reduction nasal bone fracture with fixation septoplasty/open reduction L malary zygomatic arch fracture. Past Anesthesia/Blood Transfusion Reactions: No Reported Reaction Past Psychological History: Anxiety, Bipolar, Depression Additional Psychological History / Comment(s): Pt resides with his . He works at [employer]. Smoking Status: Former smoker Past Alcohol Use History: None Reported Additional Past Alcohol Use History / Comment(s): Pt started smoking in 2003 and a pack will last 3 days. Past Drug Use History: None Reported - Past Family History Father Family Medical History: No Reported History Additional Family Medical History / Comment(s): Father is healthy Mother Family Medical History: Diabetes Mellitus Additional Family Medical History / Comment(s): Gastric ulcer, one leg shorter, neuropathy involving arms. Medications and Allergies Home Medications Medication Instructions Recorded Confirmed Type Amitriptyline HCl [Elavil] 10 mg PO HS 03/17/18 07/25/21 History Loratadine [Claritin] 10 mg PO DAILY 03/17/18 07/25/21 History Acetaminophen Tab [Tylenol Tab] 500 mg PO BID PRN 07/25/21 07/25/21 History Albuterol Sulfate [Ventolin HFA] 2 puff INHALATION RT-Q6H PRN 07/25/21 07/25/21 History Baclofen [Lioresal] 10 mg PO TID PRN 07/25/21 07/25/21 History Budesonide/Formoterol Fumarate 2 puff INHALATION RT-BID 07/25/21 07/25/21 History [Symbicort 160-4.5 Mcg Inhaler] Gabapentin [Neurontin] 100 mg PO DIRECTED 07/25/21 07/25/21 History INSULIN ASPART (NovoLOG) [NovoLOG 8 unit SQ AC-TID 07/25/21 07/25/21 History (formulary)] Insulin Detemir (Levemir) [Levemir] 30 unit SQ HS 07/25/21 07/25/21 History Montelukast [Singulair] 10 mg PO DAILY 07/25/21 07/25/21 History Naproxen 500 mg PO BID-W/MEALS PRN 07/25/21 07/25/21 History Ondansetron Odt [Zofran Odt] 4 mg PO Q12HR PRN 07/25/21 07/25/21 History Sertraline [Zoloft] 100 mg PO DAILY 07/25/21 07/25/21 History Sulfamethox-Tmp 800-160Mg [Bactrim 1 tab PO BID 07/25/21 07/25/21 History DS 800-160 mg] Tiotropium 18 Mcg/Puff [Spiriva] 1 puff INHALATION RT-DAILY 07/25/21 07/25/21 History traZODone HCL 50 mg PO HS PRN 07/25/21 07/25/21 History Allergies Allergy/AdvReac Type Severity Reaction Status Date / Time Penicillins Allergy Unknown Verified 07/25/21 22:05 Childhood Physical Exam Vitals: Vital Signs Temp Pulse Pulse Resp BP BP Pulse Ox 07/26/21 01:20 98.7 F 99 16 99/57 96 07/26/21 00:00 98.9 F 87 24 108/74 97 07/25/21 23:00 94 20 106/76 97 07/25/21 22:09 99 F 95 22 107/66 96 07/25/21 21:00 101.5 F H 07/25/21 19:27 100.4 F H 101 H 18 119/72 96 Intake and Output 07/25/21 07/25/21 07/26/21 14:59 22:59 06:59 Other: Voiding Method Toilet Weight 75.296 kg 75.296 kg GENERAL: The patient is alert and oriented x3, not in any acute distress. Well developed, well nourished. HEENT: Pupils are round and equally reacting to light. EOMI. No scleral icterus. No conjunctival pallor. Normocephalic, atraumatic. No pharyngeal erythema. No thyromegaly. CARDIOVASCULAR: S1 and S2 present. No murmurs, rubs, or gallops. PULMONARY: Chest is clear to auscultation, no wheezing or crackles. ABDOMEN: Soft, nontender, nondistended, normoactive bowel sounds. No palpable organomegaly. MUSCULOSKELETAL: No joint swelling or deformity. -EXTREMITIES: No cyanosis, clubbing, or pedal edema. Right foot is swollen, red and tender NEUROLOGICAL: Gross neurological examination did not reveal any focal deficits. SKIN: No rashes. No petechiae Results CBC & Chem 7: 07/26/21 06:25 07/26/21 06:25 Labs: Abnormal Lab Results - Last 24 Hours (Table) 07/25/21 07/25/21 07/25/21 Range/Units 20:56 20:56 22:57 WBC 19.2 H (3.8-10.6) k/uL RBC 4.02 L (4.30-5.90) m/uL Hgb 12.6 L (13.0-17.5) gm/dL Hct 38.3 L (39.0-53.0) % Neutrophils # 17.1 H (1.3-7.7) k/uL Lymphocytes # 0.7 L (1.0-4.8) k/uL Monocytes # 1.1 H (0-1.0) k/uL ESR 93 H (0-15) mm/hr Sodium 132 L (137-145) mmol/L Chloride 95 L (98-107) mmol/L BUN 6 L (9-20) mg/dL Glucose 259 H (74-99) mg/dL POC Glucose (mg/dL) 288 H (75-99) mg/dL Alkaline Phosphatase 162 H (38-126) U/L C-Reactive Protein 26.7 H (<1.0) mg/dL Lipase 12 L (23-300) U/L Urine Protein (Negative) Urine Glucose (UA) (Negative) Urine Ketones (Negative) Hyaline Casts (0-2) /lpf Urine Mucus (None) /hpf 07/26/21 07/26/21 Range/Units 01:09 01:30 WBC (3.8-10.6) k/uL RBC (4.30-5.90) m/uL Hgb (13.0-17.5) gm/dL Hct (39.0-53.0) % Neutrophils # (1.3-7.7) k/uL Lymphocytes # (1.0-4.8) k/uL Monocytes # (0-1.0) k/uL ESR (0-15) mm/hr Sodium (137-145) mmol/L Chloride (98-107) mmol/L BUN (9-20) mg/dL Glucose (74-99) mg/dL POC Glucose (mg/dL) 403 H (75-99) mg/dL Alkaline Phosphatase (38-126) U/L C-Reactive Protein (<1.0) mg/dL Lipase (23-300) U/L Urine Protein 2+ H (Negative) Urine Glucose (UA) 4+ H (Negative) Urine Ketones 3+ H (Negative) Hyaline Casts 10 H (0-2) /lpf Urine Mucus Moderate H (None) /hpf Thrombosis Risk Factor Assmnt - Choose All That Apply Any of the Below Risk Factors Present?: Yes Each Factor Represents 1 point: Swollen legs (current) Other Risk Factors: No Other congenital or acquired thrombophilia - If yes, enter type in comment: No Thrombosis Risk Factor Assessment Total Risk Factor Score: 1 Thrombosis Risk Factor Assessment Level: Low Risk Assessment and Plan Assessment: Diabetic right foot cellulitis with no open wound or abnormal discharge Insulin dependent diabetes mellitus Hypertension Diabetic neuropathy diabetic nephropathy with proteinuria History of diabetic retinopathy This is a pleasant 35 years old male who presents with diabetic foot infection Continue with antibiotics as per ID team Podiatry surgery consult Continue with insulin, both long-acting and ISS, start him on Levemir 10 units Continue with normal saline Labs and medication were reviewed.. Continue same treatment. Continue with symptomatic treatment. Resume home medication. Monitor lytes and vitals. DVT and GI prophylaxis. Further recommendations depends on the clinical course of the patient DVT prophylaxis: Subcutaneous heparin GI Prophylaxis: Pepcid PT/OT: Pending
[2021-07-26] MEDS: INSULIN DETEMIR (LEVEMIR) 100 UNIT/ML SYR SQ SCH (12:50)
[2021-07-26 17:54] LABS: Glucose,Whole Blood 252 mg/dL (75-99)
[2021-07-26] MEDS: CEFEPIME 2 GM in SODIUM CHLORIDE 0.9% 100 ML IVPB SCH (18:16)
--- NOTE | 2021-07-26 18:33 | P.GSCN ---
History of Present Illness History of present illness: 35-year-old white male patient has a history of right foot infected callus for the past 1 week he came with history of swelling and pain to the right foot a shunt has history of diabetes insulin-dependent patient also has a history of hypertension and diabetic neuropathy Neck examination neck is supple no bruit appreciated Chest is clear first and second sound normal good entry both lungs Abdomen soft nontender Vascular brachial radial femoral pulses are palpable patient has a marked cellulitis on the dorsal suspect the foot with blister formation and callus on the plantar aspect tender on palpation Plan is patient is scheduled to have a computed tomography scan of the foot Esc hen will need a I&D and a debridement of the wound and deep culture and patient nothing by mouth midnight and consent for I&D and wound debridement risk and complication discussed Past Medical History Past Medical History: Diabetes Mellitus, Hypertension, Renal Disease Additional Past Medical History / Comment(s): Pt had recent upper respiratory infection and was on antibiotics/steroids for this, IDDM type I, past DKA about 1.5 yrs ago, neuropathy bilateral legs and runs up L side of body/L arm, hand and L side of face, L eye diabetic retinopathy, diabetic nephropathy-elevated urine protein, benign nasal polyp History of Any Multi-Drug Resistant Organisms: None Reported Past Surgical History: Tonsillectomy Additional Past Surgical History / Comment(s): Closed reduction nasal bone fracture with fixation septoplasty/open reduction L malary zygomatic arch fracture. Past Anesthesia/Blood Transfusion Reactions: No Reported Reaction Past Psychological History: Anxiety, Bipolar, Depression Additional Psychological History / Comment(s): Pt resides with his . He works at [employer]. Smoking Status: Former smoker Past Alcohol Use History: None Reported Additional Past Alcohol Use History / Comment(s): Pt started smoking in 2003 and a pack will last 3 days. Past Drug Use History: None Reported - Past Family History Father Family Medical History: No Reported History Additional Family Medical History / Comment(s): Father is healthy Mother Family Medical History: Diabetes Mellitus Additional Family Medical History / Comment(s): Gastric ulcer, one leg shorter, neuropathy involving arms. Medications and Allergies Home Medications Medication Instructions Recorded Confirmed Type Amitriptyline HCl [Elavil] 10 mg PO HS 03/17/18 07/25/21 History Loratadine [Claritin] 10 mg PO DAILY 03/17/18 07/25/21 History Acetaminophen Tab [Tylenol Tab] 500 mg PO BID PRN 07/25/21 07/25/21 History Albuterol Sulfate [Ventolin HFA] 2 puff INHALATION RT-Q6H PRN 07/25/21 07/25/21 History Baclofen [Lioresal] 10 mg PO TID PRN 07/25/21 07/25/21 History Budesonide/Formoterol Fumarate 2 puff INHALATION RT-BID 07/25/21 07/25/21 History [Symbicort 160-4.5 Mcg Inhaler] Gabapentin [Neurontin] 100 mg PO DIRECTED 07/25/21 07/25/21 History INSULIN ASPART (NovoLOG) [NovoLOG 8 unit SQ AC-TID 07/25/21 07/25/21 History (formulary)] Insulin Detemir (Levemir) [Levemir] 30 unit SQ HS 07/25/21 07/25/21 History Montelukast [Singulair] 10 mg PO DAILY 07/25/21 07/25/21 History Naproxen 500 mg PO BID-W/MEALS PRN 07/25/21 07/25/21 History Ondansetron Odt [Zofran Odt] 4 mg PO Q12HR PRN 07/25/21 07/25/21 History Sertraline [Zoloft] 100 mg PO DAILY 07/25/21 07/25/21 History Sulfamethox-Tmp 800-160Mg [Bactrim 1 tab PO BID 07/25/21 07/25/21 History DS 800-160 mg] Tiotropium 18 Mcg/Puff [Spiriva] 1 puff INHALATION RT-DAILY 07/25/21 07/25/21 History traZODone HCL 50 mg PO HS PRN 07/25/21 07/25/21 History Allergies Allergy/AdvReac Type Severity Reaction Status Date / Time Penicillins Allergy Unknown Verified 07/25/21 22:05 Childhood Surgical - Exam Vital Signs Temp Pulse Resp BP Pulse Ox 100.4 F H 101 H 18 119/72 96 07/25/21 19:27 07/25/21 19:27 07/25/21 19:27 07/25/21 19:27 07/25/21 19:27 Results - Labs 07/26/21 06:25 07/26/21 06:25 Abnormal Lab Results - Last 24 Hours (Table) 07/25/21 07/25/21 07/25/21 Range/Units 20:56 20:56 22:57 WBC 19.2 H (3.8-10.6) k/uL RBC 4.02 L (4.30-5.90) m/uL Hgb 12.6 L (13.0-17.5) gm/dL Hct 38.3 L (39.0-53.0) % Neutrophils # 17.1 H (1.3-7.7) k/uL Lymphocytes # 0.7 L (1.0-4.8) k/uL Monocytes # 1.1 H (0-1.0) k/uL ESR 93 H (0-15) mm/hr Sodium 132 L (137-145) mmol/L Chloride 95 L (98-107) mmol/L Carbon Dioxide (22-30) mmol/L BUN 6 L (9-20) mg/dL Glucose 259 H (74-99) mg/dL POC Glucose (mg/dL) 288 H (75-99) mg/dL Calcium (8.4-10.2) mg/dL Alkaline Phosphatase 162 H (38-126) U/L C-Reactive Protein 26.7 H (<1.0) mg/dL Total Protein (6.3-8.2) g/dL Albumin (3.5-5.0) g/dL Lipase 12 L (23-300) U/L Urine Protein (Negative) Urine Glucose (UA) (Negative) Urine Ketones (Negative) Hyaline Casts (0-2) /lpf Urine Mucus (None) /hpf 07/26/21 07/26/21 07/26/21 Range/Units 01:09 01:30 04:54 WBC (3.8-10.6) k/uL RBC (4.30-5.90) m/uL Hgb (13.0-17.5) gm/dL Hct (39.0-53.0) % Neutrophils # (1.3-7.7) k/uL Lymphocytes # (1.0-4.8) k/uL Monocytes # (0-1.0) k/uL ESR (0-15) mm/hr Sodium (137-145) mmol/L Chloride (98-107) mmol/L Carbon Dioxide (22-30) mmol/L BUN (9-20) mg/dL Glucose (74-99) mg/dL POC Glucose (mg/dL) 403 H 294 H (75-99) mg/dL Calcium (8.4-10.2) mg/dL Alkaline Phosphatase (38-126) U/L C-Reactive Protein (<1.0) mg/dL Total Protein (6.3-8.2) g/dL Albumin (3.5-5.0) g/dL Lipase (23-300) U/L Urine Protein 2+ H (Negative) Urine Glucose (UA) 4+ H (Negative) Urine Ketones 3+ H (Negative) Hyaline Casts 10 H (0-2) /lpf Urine Mucus Moderate H (None) /hpf 07/26/21 07/26/21 07/26/21 Range/Units 06:25 06:25 07:53 WBC 18.7 H (3.8-10.6) k/uL RBC 3.95 L (4.30-5.90) m/uL Hgb 12.1 L (13.0-17.5) gm/dL Hct 38.6 L (39.0-53.0) % Neutrophils # 15.9 H (1.3-7.7) k/uL Lymphocytes # (1.0-4.8) k/uL Monocytes # 1.1 H (0-1.0) k/uL ESR (0-15) mm/hr Sodium 132 L (137-145) mmol/L Chloride (98-107) mmol/L Carbon Dioxide 19 L (22-30) mmol/L BUN (9-20) mg/dL Glucose 317 H (74-99) mg/dL POC Glucose (mg/dL) 386 H (75-99) mg/dL Calcium 8.3 L (8.4-10.2) mg/dL Alkaline Phosphatase 141 H (38-126) U/L C-Reactive Protein (<1.0) mg/dL Total Protein 6.2 L (6.3-8.2) g/dL Albumin 3.2 L (3.5-5.0) g/dL Lipase (23-300) U/L Urine Protein (Negative) Urine Glucose (UA) (Negative) Urine Ketones (Negative) Hyaline Casts (0-2) /lpf Urine Mucus (None) /hpf 07/26/21 07/26/21 Range/Units 11:05 17:52 WBC (3.8-10.6) k/uL RBC (4.30-5.90) m/uL Hgb (13.0-17.5) gm/dL Hct (39.0-53.0) % Neutrophils # (1.3-7.7) k/uL Lymphocytes # (1.0-4.8) k/uL Monocytes # (0-1.0) k/uL ESR (0-15) mm/hr Sodium (137-145) mmol/L Chloride (98-107) mmol/L Carbon Dioxide (22-30) mmol/L BUN (9-20) mg/dL Glucose (74-99) mg/dL POC Glucose (mg/dL) 373 H 252 H (75-99) mg/dL Calcium (8.4-10.2) mg/dL Alkaline Phosphatase (38-126) U/L C-Reactive Protein (<1.0) mg/dL Total Protein (6.3-8.2) g/dL Albumin (3.5-5.0) g/dL Lipase (23-300) U/L Urine Protein (Negative) Urine Glucose (UA) (Negative) Urine Ketones (Negative) Hyaline Casts (0-2) /lpf Urine Mucus (None) /hpf Diabetes panel 07/25/21 07/26/21 Range/Units 20:56 06:25 Sodium 132 L 132 L (137-145) mmol/L Potassium 4.6 4.8 (3.5-5.1) mmol/L Chloride 95 L 99 (98-107) mmol/L Carbon Dioxide 27 19 L (22-30) mmol/L BUN 6 L 10 (9-20) mg/dL Creatinine 0.80 0.86 (0.66-1.25) mg/dL Glucose 259 H 317 H (74-99) mg/dL Calcium 9.1 8.3 L (8.4-10.2) mg/dL AST 21 17 (17-59) U/L ALT 18 15 (4-49) U/L Alkaline Phosphatase 162 H 141 H (38-126) U/L Total Protein 7.7 6.2 L (6.3-8.2) g/dL Albumin 4.1 3.2 L (3.5-5.0) g/dL Calcium panel 07/25/21 07/26/21 Range/Units 20:56 06:25 Calcium 9.1 8.3 L (8.4-10.2) mg/dL Albumin 4.1 3.2 L (3.5-5.0) g/dL Pituitary panel 07/25/21 07/26/21 Range/Units 20:56 06:25 Sodium 132 L 132 L (137-145) mmol/L Potassium 4.6 4.8 (3.5-5.1) mmol/L Chloride 95 L 99 (98-107) mmol/L Carbon Dioxide 27 19 L (22-30) mmol/L BUN 6 L 10 (9-20) mg/dL Creatinine 0.80 0.86 (0.66-1.25) mg/dL Glucose 259 H 317 H (74-99) mg/dL Calcium 9.1 8.3 L (8.4-10.2) mg/dL Adrenal panel 07/25/21 07/26/21 Range/Units 20:56 06:25 Sodium 132 L 132 L (137-145) mmol/L Potassium 4.6 4.8 (3.5-5.1) mmol/L Chloride 95 L 99 (98-107) mmol/L Carbon Dioxide 27 19 L (22-30) mmol/L BUN 6 L 10 (9-20) mg/dL Creatinine 0.80 0.86 (0.66-1.25) mg/dL Glucose 259 H 317 H (74-99) mg/dL Calcium 9.1 8.3 L (8.4-10.2) mg/dL Total Bilirubin 0.7 0.9 (0.2-1.3) mg/dL AST 21 17 (17-59) U/L ALT 18 15 (4-49) U/L Alkaline Phosphatase 162 H 141 H (38-126) U/L Total Protein 7.7 6.2 L (6.3-8.2) g/dL Albumin 4.1 3.2 L (3.5-5.0) g/dL
--- NOTE | 2021-07-26 19:46 | CT ---
EXAMINATION TYPE: CT foot RT w con CT DLP: 381.10 mGycm, Automated exposure control for dose reduction was used. DATE OF EXAM: 07/26/2021 7:27 PM COMPARISON: Extremity radiograph 07/25/2021. CLINICAL INDICATION:Male, 35 years old with history of abscess, RT foot abscess, hx diabetes TECHNIQUE: Axial images were obtained of the right foot without the use of IV contrast. Additional c oronal and sagittal reformatted images and soft tissue and bone window were obtained for review FINDINGS: Skin defect with subcutaneous fat stranding near the the right fifth digit lateral aspect o f the metatarsal head and body on the predominantly plantar aspect. Subtle osseous erosion suggested on series 12 image 112. No radiopaque foreign bodies. IMPRESSION: 1. No evidence of abscess. 2. Subtle osseous erosion of the right fifth digit metatarsal head concerning for underlying osteomye litis. This could be confirmed with MRI of the foot. 3. Soft tissue defect involving the plantar surface near the fifth digit head and body.
[2021-07-26 20:31] LABS: Glucose,Whole Blood 219 mg/dL (75-99)
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
[2021-07-26] MEDS: AMITRIPTYLINE HCL 10 MG TAB PO SCH (21:41)
[2021-07-27] MEDS: CEFEPIME 2 GM in SODIUM CHLORIDE 0.9% 100 ML IVPB SCH ×4 (00:54→23:56)
[2021-07-27 02:03] LABS: Glucose,Whole Blood 147 mg/dL (75-99)
[2021-07-27] MEDS: INSULIN ASPART (NovoLOG) 100 UNIT/ML VIAL SQ SCH ×5 (02:54→21:30)
[2021-07-27] MEDS ORDERED: VANCOMYCIN TROUGH DUE 1 EACH MISC MISCELLANE ONE (04:00)
[2021-07-27] MEDS: VANCOMYCIN 1,500 MG in SODIUM CHLORIDE 0.9% 250 ML IVPB SCH (05:19)
[2021-07-27] MEDS: SODIUM CHLORIDE 0.9% 1,000 ML IV SCH ×3 (05:22→20:52)
[2021-07-27 05:52] LABS: African American GFR (CKD) >90 (>60 ml/min/1.73 sqM); Non-African American GFR(CKD) >90 (>60 ml/min/1.73 sqM)
[2021-07-27] MEDS: ONDANSETRON 4 MG/2 ML VIAL IVP PRN (06:12)
[2021-07-27] MEDS: KETOROLAC 15 MG/ML 1 ML VIAL IVP PRN ×2 (06:12→21:30)
[2021-07-27 07:21] LABS: Glucose,Whole Blood 162 mg/dL (75-99)
[2021-07-27] MEDS: LORATADINE 10 MG TAB PO SCH (08:36)
[2021-07-27] MEDS: INSULIN DETEMIR (LEVEMIR) 100 UNIT/ML SYR SQ SCH (08:36)
[2021-07-27] MEDS: SERTRALINE 100 MG TAB PO SCH (08:36)
[2021-07-27] MEDS: MORPHINE SULFATE 4 MG/ML SYRINGE IV PRN (08:36)
[2021-07-27] MEDS: MONTELUKAST 10 MG TAB PO SCH (08:36)
[2021-07-27] MEDS: FAMOTIDINE 20 MG/2 ML VIAL IV SCH ×2 (08:36→20:08)
[2021-07-27] MEDS: HEPARIN SODIUM,PORCINE/PF 5,000 UNIT/0.5 ML SYRINGE SQ SCH ×2 (08:43→20:08)
[2021-07-27] MEDS: SYMBICORT 160-4.5 MCG INHALER INHALATION SCH ×2 (09:03→19:32)
[2021-07-27] MEDS ORDERED: COLLAGENASE 250 UNIT/GM OINTMENT 30 GM TUBE TOPICAL SCH (10:15)
[2021-07-27] MEDS: PROMETHAZINE 25 MG TAB PO PRN ×2 (10:29→20:21)
[2021-07-27 11:37] LABS: Glucose,Whole Blood 226 mg/dL (75-99)
[2021-07-27 14:27] LABS: Glucose,Whole Blood 229 mg/dL (75-99)
[2021-07-27] MEDS ORDERED: fentaNYL (PF) 50 MCG/ML 2 ML AMP ONE (14:30)
[2021-07-27] MEDS ORDERED: KETAMINE 10 MG/ML 20 ML VIAL ONE (14:30)
[2021-07-27] MEDS ORDERED: MIDAZOLAM 2 MG/2 ML VIAL ONE (14:30)
[2021-07-27] MEDS ORDERED: PROPOFOL 10 MG/ML 20 ML VIAL IV ONE (14:30)
[2021-07-27] MEDS ORDERED: SODIUM CHLORIDE 0.9% 900 ML IV ONE (14:35)
[2021-07-27] MEDS ORDERED: HYDROmorphone 0.5 MG/0.5 ML SYRINGE IVP ONE (15:37)
--- NOTE | 2021-07-27 16:24 | P.PN ---
Subjective Progress Note Date: 07/27/21 Principal diagnosis: Right diabetic foot infection Patient is a 35-year-old male presented to hospital right foot swelling and redness in this patient noticed to have a right foot plantar infected callus and blistering on the dorsum aspect of the right foot, patient did have a CT of the foot completed last night did not show any evidence of drainable abscess. on today's evaluation that is 07/27/2021, the patient denies having any fever or any chills, the patient overall discomfort in the right foot is slightly decreased redness and slight decrease in intensity is no drainage, the patient denies having any chest pain shortness of breath or cough no abdominal pain and no diarrhea Objective - Vital Signs Vital signs: Vital Signs Temp 99.1 F 07/27/21 08:27 Pulse 103 H 07/27/21 08:27 Resp 17 07/27/21 08:27 BP 119/72 07/27/21 08:27 Pulse Ox 93 L 07/27/21 08:27 Intake & Output 07/26/21 07/27/21 07/27/21 18:59 06:59 18:59 Intake Total 2967 0 Balance 2967 0 Weight 75.296 kg Intake: Intake, IV Titration 1550 Amount Sodium Chloride 0.9% 1, 1300 000 ml @ 130 mls/hr IV . Q7H42M [facility] Rx#:[id number] Vancomycin 1,500 mg In 250 Sodium Chloride 0.9% 250 ml @ 125 mls/hr IVPB Q8H [facility] Rx#:[id number] Oral 1417 0 Other: Voiding Method Toilet Toilet Toilet Urinal Urinal Urinal # Voids 3 400 - Exam GENERAL DESCRIPTION: A middle-aged male lying in bed in no distress RESPIRATORY SYSTEM: Unlabored breathing , decreased breath sounds at bases HEART: S1 S2 regular rate and rhythm , ABDOMEN: Soft , no tenderness EXTREMITIES: Right foot dorsum swelling redness mildly decreased no drainage - Labs CBC & Chem 7: 07/26/21 06:25 07/27/21 04:56 Labs: Abnormal Lab Results - Last 24 Hours (Table) 07/26/21 07/26/21 07/27/21 Range/Units 17:52 20:17 01:54 Creatinine (0.66-1.25) mg/dL POC Glucose (mg/dL) 252 H 219 H 147 H (75-99) mg/dL Hemoglobin A1c (0.0-6.0) % 07/27/21 07/27/21 07/27/21 Range/Units 04:56 04:56 07:20 Creatinine 0.63 L (0.66-1.25) mg/dL POC Glucose (mg/dL) 162 H (75-99) mg/dL Hemoglobin A1c 10.4 H (0.0-6.0) % 07/27/21 Range/Units 11:36 Creatinine (0.66-1.25) mg/dL POC Glucose (mg/dL) 226 H (75-99) mg/dL Hemoglobin A1c (0.0-6.0) % Microbiology - Last 24 Hours (Table) 07/26/21 17:42 Gram Stain - Preliminary Foot - Right Wound Culture - Preliminary 07/25/21 20:56 Blood Culture - Preliminary Blood No Growth after 24 hours Assessment and Plan (1) Diabetic foot infection Current Visit: Yes Status: Acute Code(s): E11.628 - TYPE 2 DIABETES MELLITUS WITH OTHER SKIN COMPLICATIONS; L08.9 - LOCAL INFECTION OF THE SKIN AND SUBCUTANEOUS TISSUE, UNSP SNOMED Code(s): 851189684 Plan: 1patient presented hospital with extensive right diabetic foot infection with likely a infected callus on the plantar aspect of the right foot with concern for secondary cellulitis and sepsis and possible concern for underlying abscess will need to cover for the both gram-positive as well as gram-negative pathogen. 2penicillin allergy that would limit the number of antibiotics safe to use. 3patient to continue with vancomycin pharmacy to dose target trough of 15 along with cefepime 2 g every [address] of the right foot did not show any abscess. 6-patient has been evaluated by vascular surgery and planning for surgical debridement of the infected callus and deep cultures, at the bedside questions were answered Time with Patient: Less than 30
[2021-07-27] MEDS: VANCOMYCIN 1,750 MG in SODIUM CHLORIDE 0.9% 500 ML 500 ML IVPB SCH ×2 (16:29→21:34)
[2021-07-27 17:12] LABS: Glucose,Whole Blood 231 mg/dL (75-99)
--- NOTE | 2021-07-27 18:41 | OP ---
OPERATIVE REPORT PREOPERATIVE DIAGNOSIS: 1. Infected callus, right foot plantar aspect; measurement 2 x 2 cm. 2. Blister with skin necrosis present on the dorsal aspect of the foot. POSTOPERATIVE DIAGNOSIS: 1. Infected callus, right foot plantar aspect; measurement is 2 x 2 x 1 cm. 2. Necrotic skin draining pus from the lateral aspect of the right foot. PROCEDURE: 1. Excision of the callus of the right foot, plantar aspect down to subcutaneous tissue and plantar fascia. 2. Incision and drainage of the right foot, plantar aspect down to subcutaneous fat and fascia. This patient has a history of infected callus on the right foot. The patient came with marked redness and tenderness on the right foot with drainage of pus. PROCEDURE DESCRIPTION: The patient was brought to the operating room, prepped and draped in the usual sterile manner. Lidocaine 1% plain was infiltrated with IV sedation. An incision was made on the plantar aspect of the foot. We excised the callus down to subcutaneous fat and fascia. There was some devitalized tissue which was also excised. After that this patient had a blister formation noted on the lateral aspect of the right foot. Elliptical incision was made. There was some skin necrosis on the dorsal aspect of the foot, deepened through skin, fat and fascia. Underneath there was necrotic and devitalized tissue which was also excised with a sharp knife. There was drainage of pus from the dorsal aspect of the foot which was also drained. Hemostasis was controlled and the wound was copiously irrigated. We irrigated with hydrogen peroxide and saline. Deep tissue was sent for cultures sensitivity. Santyl cream was applied. Prognosis is guarded. The patient may need further wound debridement and possible toe amputation. MMODL / IJN: [id number] /
[2021-07-27] MEDS: AMITRIPTYLINE HCL 10 MG TAB PO SCH (20:08)
--- NOTE | 2021-07-27 20:13 | P.PN ---
Subjective This is a pleasant 35 years old male with past medical history of insulin- dependent diabetes mellitus, hypertension, diabetic nephropathy number diabetic neuropathy and retinopathy. Presents because of foot infection. Patient has right foot right swollen and tender for the last 4-6 days, rest of his PCP Dr. Granger and then to [facility] where he received oral antibiotics but his infection was getting worse so he decided to come to the hospital, now his right foot is significantly swollen and red and tender especially on the right side. Also has some nausea vomiting this morning but he denies abdominal pain. No diarrhea. No chest pain or dyspnea or coughing. No headache or weakness or numbness. He quit smoking in 2017, alcohol occasional, marijuana he smokes every other day. Patient was on insulin pump but he took it off when he came to the hospital, considering it will not be allowed in the hospital. He is hemodynamically stable. He is tachycardic with heart rate around 115 Labs showed leukocytosis of 19.2, mild anemia with 12.6, rest of CBC is unremarkable. ESR is elevated 93. Sodium 132, rest of the BMP is unremarkable. Glucose elevated at 259. Liver enzymes not elevated. CRP is high 26.7. Urine analysis showing 2+ protein, glucosuria and ketonuria with hyaline cast. Walker virus not detected. Foot x-ray showing no acute radiographic process for the borders and joints but there is evidence of soft tissue infection. 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 He is planned to go surgical debridement and possible I&D by vascular surgery team today. Has some nausea this morning which is not controlled by Zofran, Phenergan is added. Patient remains on antibiotics as per Dr. Gonzalez, currently is on cefepime, IV vancomycin and clindamycin. Follow-up wound culture. Hemoglobin A1c is 10.4. We will increase his Levemir 10 units up to 12 units with insulin sliding scale.. Objective - Vital Signs Vital signs: Vital Signs Temp 99.1 F 07/27/21 08:27 Pulse 103 H 07/27/21 08:27 Resp 17 07/27/21 08:27 BP 119/72 07/27/21 08:27 Pulse Ox 93 L 07/27/21 08:27 Intake & Output 07/26/21 07/27/21 07/27/21 18:59 06:59 18:59 Intake Total 2967 0 Balance 2967 0 Weight 75.296 kg Intake: Intake, IV Titration 1550 Amount Sodium Chloride 0.9% 1, 1300 000 ml @ 130 mls/hr IV . Q7H42M BRI Rx#:[id number] Vancomycin 1,500 mg In 250 Sodium Chloride 0.9% 250 ml @ 125 mls/hr IVPB Q8H BRI Rx#:[id number] Oral 1417 0 Other: Voiding Method Toilet Toilet Toilet Urinal Urinal Urinal # Voids 3 400 - Exam GENERAL: The patient is alert and oriented x3, not in any acute distress. Well developed, well nourished. HEENT: Pupils are round and equally reacting to light. EOMI. No scleral icterus. No conjunctival pallor. Normocephalic, atraumatic. No pharyngeal erythema. No thyromegaly. CARDIOVASCULAR: S1 and S2 present. No murmurs, rubs, or gallops. PULMONARY: Chest is clear to auscultation, no wheezing or crackles. ABDOMEN: Soft, nontender, nondistended, normoactive bowel sounds. No palpable organomegaly. MUSCULOSKELETAL: No joint swelling or deformity. -EXTREMITIES: No cyanosis, clubbing, or pedal edema. Right foot is swollen, red and tender NEUROLOGICAL: Gross neurological examination did not reveal any focal deficits. SKIN: No rashes. No petechiae - Labs CBC & Chem 7: 07/26/21 06:25 07/27/21 04:56 Labs: Abnormal Lab Results - Last 24 Hours (Table) 07/26/21 07/26/21 07/26/21 Range/Units 11:05 17:52 20:17 Creatinine (0.66-1.25) mg/dL POC Glucose (mg/dL) 373 H 252 H 219 H (75-99) mg/dL Hemoglobin A1c (0.0-6.0) % 07/27/21 07/27/21 07/27/21 Range/Units 01:54 04:56 04:56 Creatinine 0.63 L (0.66-1.25) mg/dL POC Glucose (mg/dL) 147 H (75-99) mg/dL Hemoglobin A1c 10.4 H (0.0-6.0) % 07/27/21 Range/Units 07:20 Creatinine (0.66-1.25) mg/dL POC Glucose (mg/dL) 162 H (75-99) mg/dL Hemoglobin A1c (0.0-6.0) % Microbiology - Last 24 Hours (Table) 07/26/21 17:42 Gram Stain - Preliminary Foot - Right Wound Culture - Preliminary 07/25/21 20:56 Blood Culture - Preliminary Blood No Growth after 24 hours Assessment and Plan Assessment: Diabetic right foot cellulitis with no open wound or abnormal discharge Insulin dependent diabetes mellitus Hypertension Diabetic neuropathy diabetic nephropathy with proteinuria History of diabetic retinopathy Plan: This is a pleasant 35 years old male who presents with diabetic foot infection Continue with antibiotics as per ID team. Vascular surgery consult will plan for debridement and I&D Continue with insulin, both long-acting and ISS, start him on Levemir 12 units Continue with normal saline Labs and medication were reviewed.. Continue same treatment. Continue with symptomatic treatment. Resume home medication. Monitor lytes and vitals. DVT and GI prophylaxis. Further recommendations depends on the clinical course of the patient DVT prophylaxis: Subcutaneous heparin GI Prophylaxis: Pepcid PT/OT: Pending
[2021-07-27] MEDS: CLINDAMYCIN 900 MG in DEXTROSE 5% IN WATER 50 ML IVPB SCH ×2 (20:51)
[2021-07-27 21:27] LABS: Glucose,Whole Blood 253 mg/dL (75-99)
[2021-07-28 02:59] LABS: Glucose,Whole Blood 184 mg/dL (75-99)
[2021-07-28] MEDS: INSULIN ASPART (NovoLOG) 100 UNIT/ML VIAL SQ SCH ×5 (03:01→21:50)
[2021-07-28] MEDS: CLINDAMYCIN 900 MG in DEXTROSE 5% IN WATER 50 ML IVPB SCH ×6 (03:02→20:32)
[2021-07-28] MEDS ORDERED: VANCOMYCIN TROUGH DUE 1 EACH MISC MISCELLANE ONE (04:00)
[2021-07-28] MEDS: MORPHINE SULFATE 4 MG/ML SYRINGE IV PRN ×3 (04:15→20:32)
[2021-07-28] MEDS: VANCOMYCIN 1,750 MG in SODIUM CHLORIDE 0.9% 500 ML 500 ML IVPB SCH ×3 (06:04→21:57)
[2021-07-28 06:23] LABS: African American GFR (CKD) >90 (>60 ml/min/1.73 sqM); Anion Gap 8 mmol/L; Blood Urea Nitrogen 10 mg/dL (9-20); Calcium 7.8 mg/dL (8.4-10.2); Carbon Dioxide 24 mmol/L (22-30); Chloride 101 mmol/L (98-107); Creatine Kinase 34 U/L (55-170); Glucose 177 mg/dL (74-99); Non-African American GFR(CKD) >90 (>60 ml/min/1.73 sqM); Sodium 133 mmol/L (137-145)
[2021-07-28] MEDS ORDERED: INSULIN DETEMIR (LEVEMIR) 100 UNIT/ML SYR SQ SCH (07:00)
[2021-07-28 07:01] LABS: Glucose,Whole Blood 239 mg/dL (75-99)
[2021-07-28] MEDS: SYMBICORT 160-4.5 MCG INHALER INHALATION SCH ×2 (07:16→19:14)
[2021-07-28] MEDS: SODIUM CHLORIDE 0.9% 1,000 ML IV SCH ×3 (07:25→20:33)
[2021-07-28] MEDS: HEPARIN SODIUM,PORCINE/PF 5,000 UNIT/0.5 ML SYRINGE SQ SCH ×2 (08:49→21:57)
[2021-07-28] MEDS: CEFEPIME 2 GM in SODIUM CHLORIDE 0.9% 100 ML IVPB SCH ×2 (08:49→15:38)
[2021-07-28] MEDS: FAMOTIDINE 20 MG TAB PO SCH ×2 (08:49→21:57)
[2021-07-28] MEDS: MONTELUKAST 10 MG TAB PO SCH (08:50)
[2021-07-28] MEDS: LORATADINE 10 MG TAB PO SCH (08:50)
[2021-07-28] MEDS: SERTRALINE 100 MG TAB PO SCH (08:50)
--- NOTE | 2021-07-28 09:57 | PN ---
PROGRESS NOTE This is a 35-year-old gentleman who has an infected callus and blister formation noted on the dorsal aspect of the foot for the past one week. We took the patient to surgery yesterday. We excised the infected callus and the abscess on the lateral aspect of the foot with excision of all devitalized tissue. We sent the deep tissue for culture; report is pending. On the previous exam patient had Staph aureus, presumptive. Today we have changed the dressing. The dorsum aspect of the foot still has redness. We irrigated the wound and used Santyl cream for the wound. I have discussed with the patient and the family that the patient may end up with amputation. We will continue with local wound care and IV antibiotic. Prognosis guarded. MMODL / IJN: [id number] /
[2021-07-28 11:20] LABS: Glucose,Whole Blood 336 mg/dL (75-99)
--- NOTE | 2021-07-28 11:58 | XR ---
EXAMINATION TYPE: XR KUB DATE OF EXAM: 07/28/2021 11:41 AM CLINICAL HISTORY: Lower abdominal pain with nausea TECHNIQUE: Two portable supine KUB images of the abdomen are obtained. COMPARISON: Abdominal x-ray 3 days ago FINDINGS: Gas seen in slightly more prominent stomach. Scattered gas seen in nondistended small and l arge bowel loops and rectum. No suspicious calcifications. Visualized osseous structures are intact. IMPRESSION: Overall nonobstructive bowel gas pattern redemonstrated.
[2021-07-28] MEDS: PROMETHAZINE 25 MG TAB PO PRN (15:36)
[2021-07-28 17:14] LABS: Glucose,Whole Blood 153 mg/dL (75-99)
--- NOTE | 2021-07-28 19:28 | P.PN ---
Subjective This is a pleasant 35 years old male with past medical history of insulin- dependent diabetes mellitus, hypertension, diabetic nephropathy number diabetic neuropathy and retinopathy. Presents because of foot infection. Patient has right foot right swollen and tender for the last 4-6 days, rest of his PCP Dr. Granger and then to [facility] where he received oral antibiotics but his infection was getting worse so he decided to come to the hospital, now his right foot is significantly swollen and red and tender especially on the right side. Also has some nausea vomiting this morning but he denies abdominal pain. No diarrhea. No chest pain or dyspnea or coughing. No headache or weakness or numbness. He quit smoking in 2017, alcohol occasional, marijuana he smokes every other day. Patient was on insulin pump but he took it off when he came to the hospital, considering it will not be allowed in the hospital. He is hemodynamically stable. He is tachycardic with heart rate around 115 Labs showed leukocytosis of 19.2, mild anemia with 12.6, rest of CBC is unremarkable. ESR is elevated 93. Sodium 132, rest of the BMP is unremarkable. Glucose elevated at 259. Liver enzymes not elevated. CRP is high 26.7. Urine analysis showing 2+ protein, glucosuria and ketonuria with hyaline cast. Walker virus not detected. Foot x-ray showing no acute radiographic process for the borders and joints but there is evidence of soft tissue infection. 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 He is planned to go surgical debridement and possible I&D by vascular surgery team today. Has some nausea this morning which is not controlled by Zofran, Phenergan is added. Patient remains on antibiotics as per Dr. Gonzalez, currently is on cefepime, IV vancomycin and clindamycin. Follow-up wound culture. Hemoglobin A1c is 10.4. We will increase his Levemir 10 units up to 12 units with insulin sliding scale.. 07/28/2021 Patient status post I&D and debridement of his right foot infection yesterday. Today dressing is in place and wound looks clean. Patient still have some nausea which is improving with Phenergan and complaining of from right flank pain radiating to the right lower quadrant abdomen about 5/10 in severity felt like sharp. He has normal bowel movement no dysuria. However he states his urine is dark Smelly. We don't order urine analysis, bladder scan and KUB did not show any obstructive bowel pattern Patient's hemoglobin A1c is elevated at 10.4, patient informed he confirmed to me he's been using insulin pump for the last 3 months and more, I informed patient this should bring his hemoglobin A1c below 7%.therefore I suggested try to avoid insulin pump since this not working for him. 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 Fields and are suggested for him and placed in his discharge instructions. Objective - Vital Signs Vital signs: Vital Signs Temp 98.2 F 07/28/21 04:02 Pulse 101 H 07/28/21 04:02 Resp 20 07/28/21 04:02 BP 115/69 07/28/21 04:02 Pulse Ox 95 07/28/21 04:02 Intake & Output 07/27/21 07/28/21 07/28/21 18:59 06:59 18:59 Intake Total 500 1930 Output Total 50 600 Balance 450 1330 Intake: IV 400 Intake, IV Titration 100 1930 Amount Cefepime 2 gm In Sodium 100 100 Chloride 0.9% 100 ml @ 25 mls/hr IVPB Q8HR BRI Rx# :[id number] Clindamycin 900 mg In 50 Dextrose 5% in Water 50 ml @ 50 mls/hr IVPB Q8H BRI Rx#:[id number] Sodium Chloride 0.9% 1, 780 000 ml @ 130 mls/hr IV . Q7H42M BRI Rx#:[id number] Vancomycin 1,750 mg In 1000 Sodium Chloride 0.9% 500 ml 500 ml @ 167 mls/hr IVPB Q8H BRI Rx#: [id number] Output: Urine 600 Estimated Blood Loss 50 Other: Voiding Method Toilet Toilet Toilet Urinal Urinal Urinal # Voids 2 - Exam GENERAL: The patient is alert and oriented x3, not in any acute distress. Well developed, well nourished. HEENT: Pupils are round and equally reacting to light. EOMI. No scleral icterus. No conjunctival pallor. Normocephalic, atraumatic. No pharyngeal erythema. No thyromegaly. CARDIOVASCULAR: S1 and S2 present. No murmurs, rubs, or gallops. PULMONARY: Chest is clear to auscultation, no wheezing or crackles. -ABDOMEN: Soft, mild tenderness in the right lower quadrant area and right flank with no rebound tenderness, no guarding, nondistended, normoactive bowel sounds. No palpable organomegaly. MUSCULOSKELETAL: No joint swelling or deformity. -EXTREMITIES: No cyanosis, clubbing, or pedal edema. Right foot is swollen, red and tender NEUROLOGICAL: Gross neurological examination did not reveal any focal deficits. SKIN: No rashes. No petechiae - Labs CBC & Chem 7: 07/26/21 06:25 07/28/21 04:52 Labs: Abnormal Lab Results - Last 24 Hours (Table) 07/27/21 07/27/21 07/27/21 Range/Units 11:36 14:25 17:10 Sodium (137-145) mmol/L Glucose (74-99) mg/dL POC Glucose (mg/dL) 226 H 229 H 231 H (75-99) mg/dL Calcium (8.4-10.2) mg/dL Creatine Kinase (55-170) U/L 07/27/21 07/28/21 07/28/21 Range/Units 21:25 02:58 04:52 Sodium 133 L (137-145) mmol/L Glucose 177 H (74-99) mg/dL POC Glucose (mg/dL) 253 H 184 H (75-99) mg/dL Calcium 7.8 L (8.4-10.2) mg/dL Creatine Kinase 34 L (55-170) U/L 07/28/21 Range/Units 07:00 Sodium (137-145) mmol/L Glucose (74-99) mg/dL POC Glucose (mg/dL) 239 H (75-99) mg/dL Calcium (8.4-10.2) mg/dL Creatine Kinase (55-170) U/L Microbiology - Last 24 Hours (Table) 07/25/21 20:56 Blood Culture - Preliminary Blood No Growth after 48 hours 07/26/21 17:42 Gram Stain - Preliminary Foot - Right Wound Culture - Preliminary Presumptive Staph aureus Assessment and Plan Assessment: Diabetic right foot cellulitis with no open wound or abnormal discharge, status post debridement and I&D Insulin dependent diabetes mellitus, uncontrolled on admission, hemoglobin A1c 10.4%. Hypertension Diabetic neuropathy diabetic nephropathy with proteinuria History of diabetic retinopathy Plan: This is a pleasant 35 years old male who presents with diabetic foot infection Continue with antibiotics as per ID team. Vascular surgery consult, status post debridement and I&D Continue with insulin, both long-acting and ISS, start him on Levemir 14 units Continue with normal saline Labs and medication were reviewed.. Continue same treatment. Continue with symptomatic treatment. Resume home medication. Monitor lytes and vitals. DVT and GI prophylaxis. Further recommendations depends on the clinical course of the patient DVT prophylaxis: Subcutaneous heparin GI Prophylaxis: Pepcid PT/OT: Pending
[2021-07-28 21:45] LABS: Glucose,Whole Blood 123 mg/dL (75-99)
[2021-07-28] MEDS: AMITRIPTYLINE HCL 10 MG TAB PO SCH (21:57)
--- NOTE | 2021-07-28 23:44 | P.PN ---
Subjective Progress Note Date: 07/28/21 Principal diagnosis: Right diabetic foot infection Patient is a 35-year-old male presented to hospital right foot swelling and redness in this patient noticed to have a right foot plantar infected callus and blistering on the dorsum aspect of the right foot, patient did have a CT of the foot completed last night did not show any evidence of drainable abscess. Patient is status post surgical drainage of the abscess by vascular surgery on 07/27/2021 on today's evaluation that is 07/28/2021, the patient is afebrile, the patient discomfort in the right foot has slightly decreased redness and slight decrease in intensity, there is no drainage, the patient denies having any chest pain shortness of breath or cough no abdominal pain and no diarrhea Objective - Vital Signs Vital signs: Vital Signs Temp 98.2 F 07/28/21 12:11 Pulse 100 07/28/21 12:11 Resp 16 07/28/21 12:11 BP 110/67 07/28/21 12:11 Pulse Ox 96 07/28/21 12:11 Intake & Output 07/27/21 07/28/21 07/28/21 18:59 06:59 18:59 Intake Total 500 1930 Output Total 50 600 Balance 450 1330 Intake: IV 400 Intake, IV Titration 100 1930 Amount Cefepime 2 gm In Sodium 100 100 Chloride 0.9% 100 ml @ 25 mls/hr IVPB Q8HR BRI Rx# :[id number] Clindamycin 900 mg In 50 Dextrose 5% in Water 50 ml @ 50 mls/hr IVPB Q8H BRI Rx#:[id number] Sodium Chloride 0.9% 1, 780 000 ml @ 130 mls/hr IV . Q7H42M BRI Rx#:[id number] Vancomycin 1,750 mg In 1000 Sodium Chloride 0.9% 500 ml 500 ml @ 167 mls/hr IVPB Q8H BRI Rx#: [id number] Output: Urine 600 Estimated Blood Loss 50 Other: Voiding Method Toilet Toilet Toilet Urinal Urinal Urinal # Voids 2 - Exam GENERAL DESCRIPTION: A middle-aged male lying in bed in no distress RESPIRATORY SYSTEM: Unlabored breathing , decreased breath sounds at bases HEART: S1 S2 regular rate and rhythm , ABDOMEN: Soft , no tenderness EXTREMITIES: Right foot is currently dressed no drainage on the dressing - Labs CBC & Chem 7: 07/26/21 06:25 07/28/21 04:52 Labs: Abnormal Lab Results - Last 24 Hours (Table) 07/27/21 07/27/21 07/27/21 Range/Units 14:25 17:10 21:25 Sodium (137-145) mmol/L Glucose (74-99) mg/dL POC Glucose (mg/dL) 229 H 231 H 253 H (75-99) mg/dL Calcium (8.4-10.2) mg/dL Creatine Kinase (55-170) U/L 07/28/21 07/28/21 07/28/21 Range/Units 02:58 04:52 07:00 Sodium 133 L (137-145) mmol/L Glucose 177 H (74-99) mg/dL POC Glucose (mg/dL) 184 H 239 H (75-99) mg/dL Calcium 7.8 L (8.4-10.2) mg/dL Creatine Kinase 34 L (55-170) U/L 07/28/21 Range/Units 11:20 Sodium (137-145) mmol/L Glucose (74-99) mg/dL POC Glucose (mg/dL) 336 H (75-99) mg/dL Calcium (8.4-10.2) mg/dL Creatine Kinase (55-170) U/L Microbiology - Last 24 Hours (Table) 07/27/21 14:52 Anaerobic Culture - Preliminary Foot - Right 07/27/21 14:52 Tissue Culture - Preliminary Foot - Right 07/25/21 20:56 Blood Culture - Preliminary Blood No Growth after 48 hours 07/26/21 17:42 Gram Stain - Preliminary Foot - Right Wound Culture - Preliminary Presumptive Staph aureus Assessment and Plan (1) Diabetic foot infection Current Visit: Yes Status: Acute Code(s): E11.628 - TYPE 2 DIABETES MELLITUS WITH OTHER SKIN COMPLICATIONS; L08.9 - LOCAL INFECTION OF THE SKIN AND SUBCUTANEOUS TISSUE, UNSP SNOMED Code(s): 132249673 Plan: 1patient presented hospital with extensive right diabetic foot infection with likely a infected callus on the plantar aspect of the right foot with concern for secondary cellulitis and sepsis and possible concern for underlying abscess will need to cover for the both gram-positive as well as gram-negative pathogen. 2penicillin allergy that would limit the number of antibiotics safe to use. 3 CT of the right foot did not show any abscess. 4-patient has been evaluated by vascular surgery and is status post surgical debridement with concern for possible deep infection 5-wound culture has been finalized with MSSA discontinue cefepime and vancomycin start the patient on cefazolin 2 g every 8 hours and continue with the clindamycin Time with Patient: Less than 30
[2021-07-29] MEDS: CLINDAMYCIN 900 MG in DEXTROSE 5% IN WATER 50 ML IVPB SCH ×6 (00:28→17:42)
[2021-07-29] MEDS: PROMETHAZINE 25 MG TAB PO PRN (00:28)
[2021-07-29 02:04] LABS: Glucose,Whole Blood 231 mg/dL (75-99)
[2021-07-29] MEDS: INSULIN ASPART (NovoLOG) 100 UNIT/ML VIAL SQ SCH ×5 (02:21→20:58)
[2021-07-29 07:30] LABS: Glucose,Whole Blood 320 mg/dL (75-99)
[2021-07-29] MEDS: SYMBICORT 160-4.5 MCG INHALER INHALATION SCH ×2 (08:10→19:47)
[2021-07-29] MEDS: INSULIN DETEMIR (LEVEMIR) 100 UNIT/ML SYR SQ SCH (08:21)
[2021-07-29] MEDS: HEPARIN SODIUM,PORCINE/PF 5,000 UNIT/0.5 ML SYRINGE SQ SCH ×2 (08:22→20:58)
[2021-07-29] MEDS: LORATADINE 10 MG TAB PO SCH (08:22)
[2021-07-29] MEDS: MONTELUKAST 10 MG TAB PO SCH (08:22)
[2021-07-29] MEDS: FAMOTIDINE 20 MG TAB PO SCH ×2 (08:22→20:58)
[2021-07-29] MEDS: MORPHINE SULFATE 4 MG/ML SYRINGE IV PRN ×3 (08:23→20:59)
[2021-07-29] MEDS: SERTRALINE 100 MG TAB PO SCH (08:23)
[2021-07-29 09:12] LABS: HCT 32.7 % (39.6-50.0); HGB 10.7 g/dL (13.0-17.0); MCH 30.5 pg (27.0-32.0); MCHC 32.7 g/dL (32.0-37.0); MCV 93.2 fL (80.0-97.0); Mean Platelet Volume 12.2 fL (9.5-12.2); NRBC Per 100 WBC 0 /100 WBCS (0.0-0.0); Platelet Count 327 X 10*3/uL (140-440); RBC 3.51 X 10*6/uL (4.40-5.60); RDW 12.4 % (11.5-14.5); WBC 16.93 X 10*3/uL (4.50-10.00)
[2021-07-29 09:17] LABS: African American GFR (CKD) 140.7 (60.0-200.0); Anion Gap 18.7 mmol/L (10.00-18.00); BUN/Creat Ratio 10.57 Ratio (12.00-20.00); Blood Urea Nitrogen 7.4 mg/dL (9.0-27.0); Calcium 8.2 mg/dL (8.7-10.3); Carbon Dioxide 18.3 mmol/L (20.0-27.5); Magnesium 1.8 mg/dL (1.5-2.4); Non-African American GFR(CKD) 121.4 (60.0-200.0)
[2021-07-29 11:14] LABS: Basophils # (A) 0.11 X 10*3/uL (0.00-0.10); Basophils % (A) 0.6 %; Eosinophils # (A) 0.12 X 10*3/uL (0.04-0.35); Eosinophils % (A) 0.7 %; Immature Grans, Automated 0.9 %; Lymphocytes # (A) 1.75 X 10*3/uL (0.90-5.00); Lymphocytes % (A) 10.3 %; Monocytes # (A) 2.13 X 10*3/uL (0.20-1.00); Monocytes % (A) 12.6 %; Neutrophils # (A) 12.66 X 10*3/uL (1.80-7.70); Neutrophils % (A) 74.9 %
[2021-07-29 11:16] LABS: RBC Morphology NORMAL
[2021-07-29 12:02] LABS: Glucose,Whole Blood 270 mg/dL (75-99)
[2021-07-29] MEDS: ONDANSETRON 4 MG/2 ML VIAL IVP PRN (12:28)
[2021-07-29] MEDS ORDERED: CALCIUM CARBONATE 500 MG CHEWABLE PO PRN (15:48)
--- NOTE | 2021-07-29 16:05 | PN ---
PROGRESS NOTE DATE OF SERVICE: 07/29/2021 This 35-year-old gentleman, admitted with diabetic foot, is being closely monitored at this time. The patient is on antibiotics. No chest pain. No palpitations. The cultures are growing MSSA. PHYSICAL EXAMINATION: Alert and oriented x3. Pulse 107, blood pressure 110/70, respiration 18. CHEST: Clear to auscultation. ABDOMEN: Soft, non-tender. NERVOUS SYSTEM: No focal deficit. Right foot cellulitis present. LABS: Reviewed. Hemoglobin 10.7. ASSESSMENT: 1. Diabetic right foot cellulitis. 2. Diabetes mellitus, type 2. 3. Hypertension. 4. Diabetic neuropathy. RECOMMENDATIONS AND DISCUSSION: I recommend to continue current medications, continue with the monitoring, symptomatic treatment. Otherwise, closely follow with Dr. Gonzalez. Antibiotics. Repeat labs. Guarded prognosis. Further recommendations to follow. MMODL / ERIKAN: [id number] /
--- NOTE | 2021-07-29 17:02 | PN ---
PROGRESS NOTE This is a 35-year-old gentleman who had an infected callus with blister formation on the dorsal aspect of the foot. The patient had excision of the infected callus and wound debridement done. Culture came back as Staph aureus. The patient is under the care of Infectious Disease for IV antibiotic. We have been changing daily using Santyl cream. The patient still has right foot dorsal aspect redness and mild drainage noted. We will continue with Santyl cream and IV antibiotic. Patient may need another intervention. MMODL / IJN: [id number] /
[2021-07-29 17:19] LABS: Glucose,Whole Blood 180 mg/dL (75-99)
[2021-07-29 20:45] LABS: Glucose,Whole Blood 136 mg/dL (75-99)
[2021-07-29] MEDS: AMITRIPTYLINE HCL 10 MG TAB PO SCH (20:58)
--- NOTE | 2021-07-29 21:30 | P.PN ---
Subjective Progress Note Date: 07/29/21 Principal diagnosis: Right diabetic foot infection Patient is a 35-year-old male presented to hospital right foot swelling and redness in this patient noticed to have a right foot plantar infected callus and blistering on the dorsum aspect of the right foot, patient did have a CT of the foot completed last night did not show any evidence of drainable abscess. Patient is status post surgical drainage of the abscess by vascular surgery on 07/27/2021 on today's evaluation that is 07/29/2021, the patient remains to be afebrile, the patient can to the right foot has slightly decreased in intensity, the patient denies having any chest pain shortness of breath or cough no abdominal pain and no diarrhea Objective - Vital Signs Vital signs: Vital Signs Temp 97.9 F 07/29/21 12:01 Pulse 105 H 07/29/21 12:01 Resp 18 07/29/21 12:01 BP 114/67 07/29/21 12:01 Pulse Ox 95 07/29/21 12:01 Intake & Output 07/28/21 07/29/21 07/29/21 18:59 06:59 18:59 Intake Total 1450 300 Balance 1450 300 Intake: Intake, IV Titration 1450 Amount Cefepime 2 gm In Sodium 100 Chloride 0.9% 100 ml @ 25 mls/hr IVPB Q8HR [facility] Rx# :[id number] Clindamycin 900 mg In 50 Dextrose 5% in Water 50 ml @ 50 mls/hr IVPB Q8H [facility]RI Rx#:[id number] Sodium Chloride 0.9% 1, 1300 000 ml @ 130 mls/hr IV . Q7H42M [facility]RI Rx#:[id number] Oral 300 Other: Voiding Method Toilet Toilet Toilet Urinal Urinal Urinal # Voids 1 - Exam GENERAL DESCRIPTION: A middle-aged male lying in bed in no distress RESPIRATORY SYSTEM: Unlabored breathing , decreased breath sounds at bases HEART: S1 S2 regular rate and rhythm , ABDOMEN: Soft , no tenderness EXTREMITIES: Right foot is currently dressed with no drainage on the dressing - Labs CBC & Chem 7: 07/29/21 06:06 07/29/21 06:06 Labs: Abnormal Lab Results - Last 24 Hours (Table) 07/28/21 07/28/21 07/29/21 Range/Units 17:13 21:25 01:50 WBC (4.50-10.00) X 10*3/uL RBC (4.40-5.60) X 10*6/uL Hgb (13.0-17.0) g/dL Hct (39.6-50.0) % Immature Gran # (0.00-0.04) X 10*3/uL Neutrophils # (1.80-7.70) X 10*3/uL Monocytes # (0.20-1.00) X 10*3/uL Basophils # (0.00-0.10) X 10*3/uL Sodium (135-145) mmol/L Chloride (96-109) mmol/L Carbon Dioxide (20.0-27.5) mmol/L Anion Gap (10.00-18.00) mmol/L BUN (9.0-27.0) mg/dL BUN/Creatinine Ratio (12.00-20.00) Ratio Glucose (70-110) mg/dL POC Glucose (mg/dL) 153 H 123 H 231 H (75-99) mg/dL Calcium (8.7-10.3) mg/dL 07/29/21 07/29/21 07/29/21 Range/Units 06:06 06:06 07:29 WBC 16.93 H (4.50-10.00) X 10*3/uL RBC 3.51 L (4.40-5.60) X 10*6/uL Hgb 10.7 L (13.0-17.0) g/dL Hct 32.7 L (39.6-50.0) % Immature Gran # 0.16 H (0.00-0.04) X 10*3/uL Neutrophils # 12.66 H (1.80-7.70) X 10*3/uL Monocytes # 2.13 H (0.20-1.00) X 10*3/uL Basophils # 0.11 H (0.00-0.10) X 10*3/uL Sodium 131 L (135-145) mmol/L Chloride 94 L (96-109) mmol/L Carbon Dioxide 18.3 L (20.0-27.5) mmol/L Anion Gap 18.70 H (10.00-18.00) mmol/L BUN 7.4 L (9.0-27.0) mg/dL BUN/Creatinine Ratio 10.57 L (12.00-20.00) Ratio Glucose 274 H (70-110) mg/dL POC Glucose (mg/dL) 320 H (75-99) mg/dL Calcium 8.2 L (8.7-10.3) mg/dL 07/29/21 Range/Units 12:00 WBC (4.50-10.00) X 10*3/uL RBC (4.40-5.60) X 10*6/uL Hgb (13.0-17.0) g/dL Hct (39.6-50.0) % Immature Gran # (0.00-0.04) X 10*3/uL Neutrophils # (1.80-7.70) X 10*3/uL Monocytes # (0.20-1.00) X 10*3/uL Basophils # (0.00-0.10) X 10*3/uL Sodium (135-145) mmol/L Chloride (96-109) mmol/L Carbon Dioxide (20.0-27.5) mmol/L Anion Gap (10.00-18.00) mmol/L BUN (9.0-27.0) mg/dL BUN/Creatinine Ratio (12.00-20.00) Ratio Glucose (70-110) mg/dL POC Glucose (mg/dL) 270 H (75-99) mg/dL Calcium (8.7-10.3) mg/dL Microbiology - Last 24 Hours (Table) 07/27/21 14:52 Gram Stain - Preliminary Foot - Right Tissue Culture - Preliminary 07/25/21 20:56 Blood Culture - Preliminary Blood No Growth after 72 hours 07/26/21 17:42 Gram Stain - Final Foot - Right Wound Culture - Final Staphylococcus aureus 07/27/21 14:52 Anaerobic Culture - Preliminary Foot - Right Assessment and Plan (1) Diabetic foot infection Current Visit: Yes Status: Acute Code(s): E11.628 - TYPE 2 DIABETES MELLITUS WITH OTHER SKIN COMPLICATIONS; L08.9 - LOCAL INFECTION OF THE SKIN AND SUBCUTANEOUS TISSUE, UNSP SNOMED Code(s): 852038020 Plan: 1patient presented hospital with extensive right diabetic foot infection with likely a infected callus on the plantar aspect of the right foot with concern for secondary cellulitis and sepsis and possible concern for underlying abscess will need to cover for the both gram-positive as well as gram-negative pathogen. 2penicillin allergy that would limit the number of antibiotics safe to use. 3 CT of the right foot did not show any abscess. 4-patient has been evaluated by vascular surgery and is status post surgical debridement with concern for possible deep infection 5-wound culture has been finalized with MSSA, blood culture has been negative patient to continue with cefazolin 2 g every 8 hours and clindamycin
[2021-07-29] MEDS: SODIUM CHLORIDE 0.9% 1,000 ML IV SCH ×2 (21:55→21:56)
[2021-07-30 02:09] LABS: Glucose,Whole Blood 133 mg/dL (75-99)
[2021-07-30] MEDS: INSULIN ASPART (NovoLOG) 100 UNIT/ML VIAL SQ SCH ×5 (02:32→20:35)
[2021-07-30] MEDS: CLINDAMYCIN 900 MG in DEXTROSE 5% IN WATER 50 ML IVPB SCH ×6 (02:32→20:35)
[2021-07-30] MEDS: MORPHINE SULFATE 4 MG/ML SYRINGE IV PRN ×5 (02:33→23:59)
[2021-07-30] MEDS: SODIUM CHLORIDE 0.9% 1,000 ML IV SCH ×4 (05:52→23:47)
[2021-07-30 07:19] LABS: Glucose,Whole Blood 210 mg/dL (75-99)
[2021-07-30] MEDS: INSULIN DETEMIR (LEVEMIR) 100 UNIT/ML SYR SQ SCH (07:54)
[2021-07-30] MEDS: FAMOTIDINE 20 MG TAB PO SCH (09:16)
[2021-07-30] MEDS: LORATADINE 10 MG TAB PO SCH (09:16)
[2021-07-30] MEDS: MONTELUKAST 10 MG TAB PO SCH (09:16)
[2021-07-30] MEDS: SERTRALINE 100 MG TAB PO SCH (09:16)
[2021-07-30] MEDS: PROMETHAZINE 25 MG TAB PO PRN (09:20)
[2021-07-30] MEDS: SYMBICORT 160-4.5 MCG INHALER INHALATION SCH ×2 (09:35→19:29)
[2021-07-30] MEDS: HEPARIN SODIUM,PORCINE/PF 5,000 UNIT/0.5 ML SYRINGE SQ SCH ×2 (10:39→20:35)
[2021-07-30] MEDS: PANTOPRAZOLE 40 MG/10 ML VIAL IVP SCH ×2 (10:39→20:35)
--- NOTE | 2021-07-30 10:48 | XR ---
EXAMINATION TYPE: XR chest 1V portable DATE OF EXAM: 07/30/2021 Comparison: 01/16/2013 Clinical History: 35-year-old male shortness of breath Findings: Heart normal size. Aorta and pulmonary vasculature within normal limits. Patchy bibasilar opacities a re new from prior. Bilateral nipple rings. Impression: Patchy bibasilar opacities are new. Some type of airspace disease is suggested. Correlate for possibl e etiologies including aspiration, multifocal pneumonia, interstitial pneumonitis, or atypical pneumo parmjit.
[2021-07-30 11:35] LABS: Glucose,Whole Blood 200 mg/dL (75-99)
[2021-07-30] MEDS: METOCLOPRAMIDE 5 MG/ML 2 ML VIAL IVP SCH ×3 (13:48→23:51)
--- NOTE | 2021-07-30 14:32 | PN ---
PROGRESS NOTE This is a 35-year-old gentleman who came with an infected callus and blister formation on the dorsal aspect of the right foot. The patient was taken to the OR on Thursday and we did wound debridement and deep culture. Culture came back as Staph aureus. CT scan was negative for abscess. We have been treating with local wound care using Santyl. The patient still has some drainage noted on the dorsal aspect of the aspect of the foot with some devitalized tissue. The patient is going to be taken to the OR for a second operation and some more debridement. Discussed with the patient. Prognosis is guarded. The patient is n.p.o. since morning after his breakfast. MMODL / IJN: [id number] /
[2021-07-30] MEDS ORDERED: LACTATED RINGERS 1,000 ML IV ONE (14:46)
[2021-07-30] MEDS ORDERED: ONDANSETRON 4 MG/2 ML VIAL IVP ONE ×2 (14:48)
[2021-07-30 14:53] LABS: Glucose,Whole Blood 107 mg/dL (75-99)
--- NOTE | 2021-07-30 14:53 | P.PN ---
Subjective Progress Note Date: 07/30/21 This is a pleasant 35-year-old male who was recently admitted with diabetic foot ulcer and being closely monitored. Patient is continued on IV antibiotics with infectious disease and vascular surgery following closely. The cultures are growing MSSA and awaiting finalized cultures. Vascular surgery following with discussion of possible further debridement and possible amputation. Patient reports to having continuous hiccups and feelings of esophageal fullness and reports to having gastritis and esophagitis previously and felt the same sensation. Patient reports to each meal he feels more difficult in swallowing and feels that is not passing through. General surgery consulted and pending at this time. Recommend nothing by mouth and aspiration precautions for now. Review of systems: Constitutional: No reports of fatigue, fever, or chills Cardiovascular: No reports of chest pain or palpitations Respiratory: No reports of shortness of breath or cough GI: reports of nausea, no reports of of vomiting, reports of feeling fullness in his esophagus and feels like he is choking on food : No reports of dysuria or retention Neurovascular: reports of generalized weakness, reports right foot pain All medications have been reviewed Active Medications Acetaminophen (Acetaminophen Tab 325 Mg Tab) 650 mg PO Q6HR PRN PRN Reason: Mild Pain or Fever > 100.5 Albuterol Sulfate (Albuterol Nebulized 2.5 Mg/3 Ml) 2.5 mg INHALATION RT-Q6H PRN PRN Reason: Shortness Of Breath Amitriptyline HCl (Amitriptyline Hcl 10 Mg Tab) 10 mg PO HS [facility] Last Admin: 07/29/21 20:58 Dose: 10 mg Documented by: Baclofen (Baclofen 10 Mg Tab) 10 mg PO TID PRN PRN Reason: Muscle Pain Last Admin: 07/29/21 00:28 Dose: 10 mg Documented by: Budesonide/Formoterol Fumarate (Symbicort 160-4.5 Mcg Inhaler) 2 puff INHALATION RT-BID [facility]RI Last Admin: 07/30/21 09:35 Dose: 2 puff Documented by: Calcium Carbonate/Glycine (Calcium Carbonate 500 Mg Chewable) 500 mg PO TID PRN PRN Reason: Heartburn Last Admin: 07/29/21 15:56 Dose: 500 mg Documented by: Heparin Sodium (Porcine) (Heparin Sodium,Porcine/Pf 5,000 Unit/0.5 Ml Syringe) 5,000 unit SQ Q12HR BRI Last Admin: 07/30/21 10:39 Dose: 5,000 unit Documented by: Sodium Chloride (Saline 0.9%) 1,000 mls @ 130 mls/hr IV .Q7H42M [facility] Last Admin: 07/30/21 05:52 Dose: Not Given Documented by: Clindamycin Phosphate 900 mg/ (Dextrose/Water) 56 mls @ 50 mls/hr IVPB Q8H [facility]; Protocol Last Admin: 07/30/21 07:54 Dose: 50 mls/hr Documented by: Cefazolin Sodium 2 gm/ Sodium (Chloride) 50 mls @ 100 mls/hr IVPB Q8HR [facility]; Protocol Last Admin: 07/30/21 09:21 Dose: 100 mls/hr Documented by: Insulin Aspart (Insulin Aspart (Novolog) 100 Unit/Ml Vial) 0 unit SQ [id number] [facility]; Protocol Last Admin: 07/30/21 12:22 Dose: 2 unit Documented by: Insulin Detemir (Insulin Detemir (Levemir) 100 Unit/Ml Syr) 14 unit SQ DAILY@0700 [facility] Last Admin: 07/30/21 07:54 Dose: 14 unit Documented by: Loratadine (Loratadine 10 Mg Tab) 10 mg PO DAILY [facility] Last Admin: 07/30/21 09:16 Dose: 10 mg Documented by: Metoclopramide HCl (Metoclopramide 5 Mg/Ml 2 Ml Vial) 5 mg IVP Q6HR [facility] Last Admin: 07/30/21 13:48 Dose: 5 mg Documented by: Montelukast Sodium (Montelukast 10 Mg Tab) 10 mg PO DAILY [facility] Last Admin: 07/30/21 09:16 Dose: 10 mg Documented by: Morphine Sulfate (Morphine Sulfate 4 Mg/Ml Syringe) 4 mg IV Q4HR PRN PRN Reason: Severe Pain Last Admin: 07/30/21 13:48 Dose: 4 mg Documented by: Naloxone HCl (Naloxone 0.4 Mg/Ml 1 Ml Vial) 0.2 mg IV Q2M PRN PRN Reason: Opioid Reversal Ondansetron HCl (Ondansetron 4 Mg/2 Ml Vial) 4 mg IVP Q6HR PRN PRN Reason: Nausea And Vomiting Last Admin: 07/29/21 12:28 Dose: 4 mg Documented by: Pantoprazole Sodium (Pantoprazole 40 Mg/10 Ml Vial) 40 mg IVP BID [facility] Last Admin: 07/30/21 10:39 Dose: 40 mg Documented by: Promethazine HCl (Promethazine 25 Mg Tab) 25 mg PO Q8HR PRN PRN Reason: Nausea Last Admin: 07/30/21 09:20 Dose: 25 mg Documented by: Sertraline HCl (Sertraline 100 Mg Tab) 100 mg PO DAILY [facility] Last Admin: 07/30/21 09:16 Dose: 100 mg Documented by: Trazodone HCl (Trazodone Hcl 50 Mg Tab) 50 mg PO HS PRN PRN Reason: sleep Last Admin: 07/27/21 23:58 Dose: 50 mg Documented by: PHYSICAL EXAMINATION: GENERAL: The patient is alert and oriented x4, Well developed, well nourished. HEENT: Pupils are round and equally reacting to light. EOMI. no scleral icterus. No conjunctival pallor. Normocephalic, atraumatic. No pharyngeal erythema. No thyromegaly. CARDIOVASCULAR: S1 and S2 muffled PULMONARY: diminished breath sounds bilaterally with some mild expiratory wheezing noted. ABDOMEN: soft. Nontender on exam. obese. non-distended, normoactive bowel sounds. No palpable organomegaly. MUSCULOSKELETAL: No joint swelling or deformity. EXTREMITIES: No cyanosis, clubbing, or pedal edema. Right hip surgical dressing is intact NEUROLOGICAL: Gross neurological examination did not reveal any focal deficits. Diffuse weakness SKIN: No rashes. Assessment: Diabetic right foot cellulitis Diabetes mellitus, type II Difficulty in swallowing, dysphagia Hypertension Diabetic neuropathy Remote history of nicotine abuse, possible underlying COPD History of asthma GI prophylaxis DVT prophylaxis Full code Plan: Recommend to continue with current medications and management vascular surgery and ID following closely. Patient is maintained on IV antibiotics in the form of clindamycin along with cefazolin and will continue. Plans for possible debridement with vascular surgery and possible discussion of amputation of the right lower extremity. Patient having some difficulty in swallowing and continuous hiccups and reports to having a past medical history of esophagitis and gastritis and felt the same way. Patient reports to feeling worse after meals and continues to feel as if food is being stuck in his esophagus. We'll make the patient nothing by mouth for now and Gen. surgery consulted and michael reciate input and recommendations. Patient denies any shortness of breath or difficulty in breathing at this time and discuss with nursing staff about monitoring closely. Per nursing staff possible EGD with esophagram per surgery. Patient reports to smoking heavily in the past and quit approximately 1 year ago and does have history of asthma and uses inhalers and will require nebulizer on discharge for possible underlying COPD and continued asthma. Recommend continue monitoring Accu-Cheks closely and will continue with current medication regimen. Follow-up repeat labs in the morning and will continue to monitor closely. Due to multiple complex medical issues, prognosis is guarded. The impression and plan of care has been dictated by Loyda Chang, nurse practitioner as directed. MD Ximena I have performed a history and examination and MDM of this patient, discussed the same with the dictator, and agree with the dictator's assessment and plan as written ,documented as a scribe. Based on total visit time, I have performed more than 50% of the visit. Any additional findings or plans will be noted. Objective - Vital Signs Vital signs: Vital Signs Temp 98 F 07/30/21 08:31 Pulse 95 07/30/21 08:31 Resp 18 07/30/21 08:31 BP 128/79 07/30/21 08:31 Pulse Ox 93 L 07/30/21 04:40 Intake & Output 07/29/21 07/30/21 07/30/21 18:59 06:59 18:59 Intake Total 1000 240 Balance 1000 240 Intake: Intake, IV Titration 1000 Amount Clindamycin 900 mg In 50 Dextrose 5% in Water 50 ml @ 50 mls/hr IVPB Q8H [facility]RI Rx#:[id number] Sodium Chloride 0.9% 1, 900 000 ml @ 130 mls/hr IV . Q7H42M [facility]RI Rx#:[id number] ceFAZolin 2 gm In Sodium 50 Chloride 0.9% 50 ml @ 100 mls/hr IVPB Q8HR [facility]RI Rx# :[id number] Oral 240 Other: Voiding Method Toilet Toilet Urinal Urinal Urinal # Voids 2 - Labs CBC & Chem 7: 07/29/21 06:06 07/29/21 06:06 Labs: Abnormal Lab Results - Last 24 Hours (Table) 07/29/21 07/29/21 07/29/21 Range/Units 06:06 12:00 17:18 Immature Gran # 0.16 H (0.00-0.04) X 10*3/uL Neutrophils # 12.66 H (1.80-7.70) X 10*3/uL Monocytes # 2.13 H (0.20-1.00) X 10*3/uL Basophils # 0.11 H (0.00-0.10) X 10*3/uL POC Glucose (mg/dL) 270 H 180 H (75-99) mg/dL 07/29/21 07/30/21 07/30/21 Range/Units 20:44 02:06 07:18 Immature Gran # (0.00-0.04) X 10*3/uL Neutrophils # (1.80-7.70) X 10*3/uL Monocytes # (0.20-1.00) X 10*3/uL Basophils # (0.00-0.10) X 10*3/uL POC Glucose (mg/dL) 136 H 133 H 210 H (75-99) mg/dL Microbiology - Last 24 Hours (Table) 07/25/21 20:56 Blood Culture - Preliminary Blood No Growth after 96 hours
[2021-07-30] MEDS ORDERED: DEXAMETHASONE SOD PHOSPHATE 4 MG/ML 1 ML VIAL IVP ONE (14:55)
[2021-07-30] MEDS ORDERED: fentaNYL (PF) 50 MCG/ML 2 ML AMP ONE (15:29)
[2021-07-30] MEDS ORDERED: LIDOCAINE 1% INJ 10MG/ML (20 ML MDV) ONE (15:29)
[2021-07-30] MEDS ORDERED: PHENYLEPHRINE-0.9% NACL SYG 1,000 MCG/10 ML SYRINGE ONE (15:29)
[2021-07-30] MEDS ORDERED: PROPOFOL 10 MG/ML 20 ML VIAL IV ONE (15:29)
[2021-07-30] MEDS ORDERED: SUCCINYLCHOLINE CHLORIDE 100 MG/5 ML SYR IV ONE (15:29)
[2021-07-30] MEDS ORDERED: MIDAZOLAM 2 MG/2 ML VIAL ONE (15:29)
--- NOTE | 2021-07-30 15:49 | P.GSCN ---
History of Present Illness Consult date: 07/30/21 History of present illness: CHIEF COMPLAINT: Right foot infection Reason for consult excessive hiccups, history of esophagitis, feeling like food is trapped HISTORY OF PRESENT ILLNESS: This is a 35-year-old male with type 1 diabetes mellitus. He presented to the hospital with right foot pain, redness and swelling. He had evidence of a diabetic foot infection with an infected callus and blister formation. Patient has undergone debridement with vascular surgery and is scheduled for another debridement today with vascular surgery. Patient reports that he is had been having excessive hiccups for the last 3-4 days. And this morning after eating eggs and pineapples patient felt that the food was stuck in the esophagus. He reports that it sat there and she could not get it to move even with drinking liquids. He did report some nausea. No vomiting. And eventually he felt the food move down into the stomach. Patient is described as a burning sensation. He does have a known history of esophagitis. He reports his last EGD was about a year ago when he was diagnosed with the esophagitis. Our chart shows an EGD in [address] Jeffries had shown esophagit is. Patient reports having regular bowel movements. Patient denies any history of gastroparesis. PAST MEDICAL HISTORY: Type 1 diabetes mellitus, hypertension, renal disease, diabetic nephropathy SURGICAL HISTORY: See list. MEDICATIONS: See list. ALLERGIES: See list. SOCIAL HISTORY: No illicit drug use. REVIEW OF SYSTEMS: CONSTITUTIONAL: Denies fever or chills. HEENT: Denies blurred vision, vision changes, or eye pain. Denies hemoptysis CARDIOVASCULAR: Denies chest pain or pressure. RESPIRATORY: No shortness of breath. GASTROINTESTINAL: See HPI for pertinent findings HEMATOLOGIC: Denies bleeding disorders. GENITOURINARY: Denies any blood in urine or increased urinary frequency. SKIN: Denies pruitis. Denies rash. PHYSICAL EXAM: VITAL SIGNS: Reviewed GENERAL: Well-developed in no acute distress. HEENT: No sclera icterus. Extraocular movements grossly intact. Moist buccal mucosa. Head is atraumatic, normocephalic. No nasal drainage. ABDOMEN: Soft. Nondistended. Tenderness to palpation of the epigastric area NEUROLOGIC: Alert and oriented. Cranial nerves II through XII grossly intact. Extremities: Right foot bandaged LABORATORY DATA: WBC 16.93 hemoglobin 10.7 platelets 327 sodium 131 potassium 4.0 creatinine 0.7 glucose 107 A1c 10.4 IMAGING: ASSESSMENT: 1. Dysphagia. Epigastric pain with sensation of food stuck in the esophagus 2. Excessive hiccups 3. History of esophagitis 4. Right diabetic foot infection PLAN: -Patient scheduled for upper GI tomorrow for further evaluation of the dysphagia -EGD scheduled for , 08/01/2021 -Continue IV Protonix -Continue supportive care -Continue treatment for his diabetic foot infection Thank you for this consultation Physician Supervisor Intermediates note has been reviewed by physician. Signing provider agrees with the documented findings, assessment, and plan of care. Past Medical History Past Medical History: Diabetes Mellitus, Hypertension, Renal Disease Additional Past Medical History / Comment(s): Pt had recent upper respiratory infection and was on antibiotics/steroids for this, IDDM type I, past DKA about 1.5 yrs ago, neuropathy bilateral legs and runs up L side of body/L arm, hand and L side of face, L eye diabetic retinopathy, diabetic nephropathy-elevated urine protein, benign nasal polyp History of Any Multi-Drug Resistant Organisms: None Reported Past Surgical History: Tonsillectomy Additional Past Surgical History / Comment(s): Closed reduction nasal bone fracture with fixation septoplasty/open reduction L malary zygomatic arch fracture. Past Anesthesia/Blood Transfusion Reactions: No Reported Reaction Past Psychological History: Anxiety, Bipolar, Depression Additional Psychological History / Comment(s): Pt resides with his . He works at [employer]. Smoking Status: Former smoker Past Alcohol Use History: None Reported Additional Past Alcohol Use History / Comment(s): Pt started smoking in 2003 and a pack will last 3 days. Past Drug Use History: None Reported - Past Family History Father Family Medical History: No Reported History Additional Family Medical History / Comment(s): Father is healthy Mother Family Medical History: Diabetes Mellitus Additional Family Medical History / Comment(s): Gastric ulcer, one leg shorter, neuropathy involving arms. Medications and Allergies Home Medications Medication Instructions Recorded Confirmed Type Amitriptyline HCl [Elavil] 10 mg PO HS 03/17/18 07/25/21 History Loratadine [Claritin] 10 mg PO DAILY 03/17/18 07/25/21 History Acetaminophen Tab [Tylenol Tab] 500 mg PO BID PRN 07/25/21 07/25/21 History Albuterol Sulfate [Ventolin HFA] 2 puff INHALATION RT-Q6H PRN 07/25/21 07/25/21 History Baclofen [Lioresal] 10 mg PO TID PRN 07/25/21 07/25/21 History Budesonide/Formoterol Fumarate 2 puff INHALATION RT-BID 07/25/21 07/25/21 History [Symbicort 160-4.5 Mcg Inhaler] Gabapentin [Neurontin] 100 mg PO DIRECTED 07/25/21 07/25/21 History INSULIN ASPART (NovoLOG) [NovoLOG 8 unit SQ AC-TID 07/25/21 07/25/21 History (formulary)] Insulin Detemir (Levemir) [Levemir] 30 unit SQ HS 07/25/21 07/25/21 History Montelukast [Singulair] 10 mg PO DAILY 07/25/21 07/25/21 History Naproxen 500 mg PO BID-W/MEALS PRN 07/25/21 07/25/21 History Ondansetron Odt [Zofran Odt] 4 mg PO Q12HR PRN 07/25/21 07/25/21 History Sertraline [Zoloft] 100 mg PO DAILY 07/25/21 07/25/21 History Sulfamethox-Tmp 800-160Mg [Bactrim 1 tab PO BID 07/25/21 07/25/21 History DS 800-160 mg] Tiotropium 18 Mcg/Puff [Spiriva] 1 puff INHALATION RT-DAILY 07/25/21 07/25/21 History traZODone HCL 50 mg PO HS PRN 07/25/21 07/25/21 History Allergies Allergy/AdvReac Type Severity Reaction Status Date / Time Penicillins Allergy Unknown Verified 07/30/21 14:48 Childhood Surgical - Exam Vital Signs Temp Pulse Resp BP Pulse Ox 100.4 F H 101 H 18 119/72 96 07/25/21 19:27 07/25/21 19:27 07/25/21 19:27 07/25/21 19:27 07/25/21 19:27 Results - Labs 07/29/21 06:06 07/29/21 06:06 Abnormal Lab Results - Last 24 Hours (Table) 04/11/22 04/11/22 04/12/22 Range/Units 17:18 20:44 02:06 POC Glucose (mg/dL) 180 H 136 H 133 H (75-99) mg/dL 07/30/21 07/30/21 07/30/21 Range/Units 07:18 11:31 14:51 POC Glucose (mg/dL) 210 H 200 H 107 H (75-99) mg/dL Microbiology - Last 24 Hours (Table) 07/27/21 14:52 Gram Stain - Preliminary Foot - Right Tissue Culture - Preliminary Presumptive Staph aureus Alpha Hemolytic Streptococcus 07/25/21 20:56 Blood Culture - Preliminary Blood No Growth after 96 hours
[2021-07-30] MEDS ORDERED: HYDROmorphone 0.5 MG/0.5 ML SYRINGE IVP ONE (16:58)
[2021-07-30] MEDS ORDERED: SODIUM CHLORIDE 0.9% 1,000 ML IV ONE (17:08)
[2021-07-30 17:21] LABS: Glucose,Whole Blood 101 mg/dL (75-99)
[2021-07-30 18:09] LABS: Glucose,Whole Blood 105 mg/dL (75-99)
[2021-07-30 20:03] LABS: Glucose,Whole Blood 190 mg/dL (75-99)
[2021-07-30] MEDS: AMITRIPTYLINE HCL 10 MG TAB PO SCH (20:35)
--- NOTE | 2021-07-30 20:44 | OP ---
OPERATIVE REPORT PREOPERATIVE DIAGNOSIS: Infected wound, right foot, dorsal aspect of the foot; measurement 9 x 4 x 1 cm. POSTOPERATIVE DIAGNOSIS: Infected wound, right foot, dorsal aspect of the foot; measurement 9 x 4 x 1 cm. OPERATION: Debridement of the wound down to subcutaneous tissue and fascia. This patient has a history of diabetes. He had this wound on his right foot with drainage of pus and blister formation on the dorsal aspect of the foot. He had an infected callus on the plantar aspect of the foot. PROCEDURE DESCRIPTION: The patient was brought to the operating room under anesthesia. Right foot was prepped and draped in the usual sterile manner. There was devitalized tissue and skin necrosis. Incision was made on the lateral aspect of the right foot, extended to the mid foot, deepened through skin, fat and fascia. There was necrotic tissue which was excised with a sharp knife down to the fascia. Some tendons were exposed. All the devitalized tissue was excised with a sharp knife. There was some bleeding, which was controlled. We took deep culture, which was sent for culture. Wound was copiously irrigated with hydrogen peroxide and saline. Hemostasis was well controlled. Wound V.A.C. was placed. Dressing was applied. Patient was transferred to the recovery room. MMODL / IJN: [id number] /
--- NOTE | 2021-07-30 20:57 | PCN ---
PROCEDURE NOTE ADDENDUM: PREOP DIAGNOSIS: Wet gangrene of the left foot. MMODL / IJN: [id number] /
--- NOTE | 2021-07-30 23:28 | P.PN ---
Subjective Progress Note Date: 07/30/21 Principal diagnosis: Right diabetic foot infection Patient is a 35-year-old male presented to hospital right foot swelling and redness in this patient noticed to have a right foot plantar infected callus and blistering on the dorsum aspect of the right foot, patient did have a CT of the foot completed last night did not show any evidence of drainable abscess. Patient is status post surgical drainage of the abscess by vascular surgery on 07/27/2021 on today's evaluation that is 07/30/2021, the patient is afebrile, the patient pain to the right foot is controlled with current pain medication, the patient denies having any chest pain shortness of breath or cough no abdominal pain and no diarrhea Objective - Vital Signs Vital signs: Vital Signs Temp 98 F 07/30/21 08:31 Pulse 95 07/30/21 08:31 Resp 18 07/30/21 08:31 BP 128/79 07/30/21 08:31 Pulse Ox 93 L 07/30/21 04:40 Intake & Output 07/29/21 07/30/21 07/30/21 18:59 06:59 18:59 Intake Total 1000 480 Output Total 400 Balance 1000 80 Intake: Intake, IV Titration 1000 Amount Clindamycin 900 mg In 50 Dextrose 5% in Water 50 ml @ 50 mls/hr IVPB Q8H BRI Rx#:[id number] Sodium Chloride 0.9% 1, 900 000 ml @ 130 mls/hr IV . Q7H42M BRI Rx#:[id number] ceFAZolin 2 gm In Sodium 50 Chloride 0.9% 50 ml @ 100 mls/hr IVPB Q8HR BRI Rx# :[id number] Oral 480 Output: Urine 400 Other: Voiding Method Toilet Toilet Urinal Urinal Urinal # Voids 2 1 - Exam GENERAL DESCRIPTION: A middle-aged male lying in bed in no distress RESPIRATORY SYSTEM: Unlabored breathing , decreased breath sounds at bases HEART: S1 S2 regular rate and rhythm , ABDOMEN: Soft , no tenderness EXTREMITIES: Right foot is currently dressed with no drainage on the dressing - Labs CBC & Chem 7: 07/29/21 06:06 07/29/21 06:06 Labs: Abnormal Lab Results - Last 24 Hours (Table) 04/11/22 04/11/22 04/11/22 Range/Units 12:00 17:18 20:44 POC Glucose (mg/dL) 270 H 180 H 136 H (75-99) mg/dL 07/30/21 07/30/21 07/30/21 Range/Units 02:06 07:18 11:31 POC Glucose (mg/dL) 133 H 210 H 200 H (75-99) mg/dL Microbiology - Last 24 Hours (Table) 07/27/21 14:52 Gram Stain - Preliminary Foot - Right Tissue Culture - Preliminary Presumptive Staph aureus Alpha Hemolytic Streptococcus 07/25/21 20:56 Blood Culture - Preliminary Blood No Growth after 96 hours Assessment and Plan (1) Diabetic foot infection Current Visit: Yes Status: Acute Code(s): E11.628 - TYPE 2 DIABETES MELLITUS WITH OTHER SKIN COMPLICATIONS; L08.9 - LOCAL INFECTION OF THE SKIN AND SUBCUTANEOUS TISSUE, UNSP SNOMED Code(s): 588942178 Plan: 1patient presented hospital with extensive right diabetic foot infection with likely a infected callus on the plantar aspect of the right foot with concern for secondary cellulitis and sepsis and possible concern for underlying abscess will need to cover for the both gram-positive as well as gram-negative pathogen. 2penicillin allergy that would limit the number of antibiotics safe to use. 3 CT of the right foot did not show any abscess. 4-patient has been evaluated by vascular surgery and is status post surgical debridement with concern for possible deep infection and is scheduled to go back to the OR today for further surgical debridement 5-the patient wound culture has been finalized with MSSA and Streptococcus, blood culture has been negative patient to continue with cefazolin 2 g every 8 hours and clindamycin Time with Patient: Less than 30
[2021-07-31 01:51] LABS: Glucose,Whole Blood 283 mg/dL (75-99)
[2021-07-31] MEDS: CLINDAMYCIN 900 MG in DEXTROSE 5% IN WATER 50 ML IVPB SCH ×6 (02:06→17:44)
[2021-07-31] MEDS: INSULIN ASPART (NovoLOG) 100 UNIT/ML VIAL SQ SCH ×5 (02:06→20:31)
[2021-07-31] MEDS: METOCLOPRAMIDE 5 MG/ML 2 ML VIAL IVP SCH ×4 (05:12→23:23)
[2021-07-31] MEDS: MORPHINE SULFATE 4 MG/ML SYRINGE IV PRN ×4 (05:25→21:28)
[2021-07-31 06:59] LABS: Glucose,Whole Blood 357 mg/dL (75-99)
[2021-07-31] MEDS: ALBUTEROL NEBULIZED 2.5 MG/3 ML INHALATION PRN ×2 (08:12→19:30)
[2021-07-31] MEDS: SYMBICORT 160-4.5 MCG INHALER INHALATION SCH ×2 (08:13→19:29)
[2021-07-31] MEDS: HEPARIN SODIUM,PORCINE/PF 5,000 UNIT/0.5 ML SYRINGE SQ SCH ×2 (08:36→20:19)
[2021-07-31] MEDS: INSULIN DETEMIR (LEVEMIR) 100 UNIT/ML SYR SQ SCH (08:38)
[2021-07-31 09:30] LABS: African American GFR (CKD) 133.2 (60.0-200.0); BUN/Creat Ratio 8.5 Ratio (12.00-20.00); Blood Urea Nitrogen 6.8 mg/dL (9.0-27.0); C Reactive Protein 10.5 mg/dL (0.00-0.80); Non-African American GFR(CKD) 114.9 (60.0-200.0); Potassium 4.3 mmol/L (3.5-5.5)
[2021-07-31 11:01] LABS: Basophils # (A) 0.14 X 10*3/uL (0.00-0.10); Basophils % (A) 0.9 %; Eosinophils # (A) 0.03 X 10*3/uL (0.04-0.35); Eosinophils % (A) 0.2 %; HCT 33.2 % (39.6-50.0); HGB 10.6 g/dL (13.0-17.0); Immature Grans, Automated 4.5 %; Lymphocytes # (A) 1.62 X 10*3/uL (0.90-5.00); Lymphocytes % (A) 10.8 %; MCH 30.6 pg (27.0-32.0); MCHC 31.9 g/dL (32.0-37.0); Mean Platelet Volume 11.8 fL (9.5-12.2); Monocytes # (A) 1.67 X 10*3/uL (0.20-1.00); Monocytes % (A) 11.1 %; NRBC Per 100 WBC 0 /100 WBCS (0.0-0.0); Neutrophils # (A) 10.89 X 10*3/uL (1.80-7.70); Neutrophils % (A) 72.5 %; Platelet Count 306 X 10*3/uL (140-440); RBC 3.46 X 10*6/uL (4.40-5.60); RDW 13.2 % (11.5-14.5); WBC 15.02 X 10*3/uL (4.50-10.00)
[2021-07-31] MEDS: MONTELUKAST 10 MG TAB PO SCH (11:47)
[2021-07-31] MEDS: SERTRALINE 100 MG TAB PO SCH (11:48)
[2021-07-31] MEDS: LORATADINE 10 MG TAB PO SCH (11:48)
[2021-07-31 12:10] LABS: Glucose,Whole Blood 366 mg/dL (75-99)
[2021-07-31] MEDS: PANTOPRAZOLE 40 MG/10 ML VIAL IVP SCH ×2 (12:16→20:19)
[2021-07-31] MEDS: PROMETHAZINE 25 MG TAB PO PRN (12:17)
--- NOTE | 2021-07-31 15:03 | P.PN ---
Subjective Progress Note Date: 07/31/21 CHIEF COMPLAINT: Dysphagia HISTORY OF PRESENT ILLNESS: Patient is being followed for his dysphagia. He is scheduled for an upper GI x-ray today. He reports that he still having hiccups. Has no new complaints. Patient had debridement of his right foot wound with Dr. Luu. Currently has wound VAC in place. Afebrile. Mildly tachycardic. WBC 15 hemoglobin 10.6 platelets 306 sodium 134 creatinine 0.8 blood sugar 366 PHYSICAL EXAM: VITAL SIGNS: Reviewed. GENERAL: Well-developed in no acute distress. HEENT: No sclera icterus. Extraocular movements grossly intact. Moist buccal mucosa. Head is atraumatic, normocephalic. ABDOMEN: Soft. Nondistended. Nontender. NEUROLOGIC: Alert and oriented. Cranial nerves II through XII grossly intact. ASSESSMENT: 1. Dysphagia. Epigastric pain with sensation of food stuck in the esophagus 2. Excessive hiccups 3. History of esophagitis 4. Right diabetic foot infection PLAN: -Upper GI results pending -Patient scheduled for EGD tomorrow, 08/01/2021 -Nothing by mouth after midnight -Continue supportive care Physician Home Stager note has been reviewed by physician. Signing provider agrees with the documented findings, assessment, and plan of care. Objective - Vital Signs Vital signs: Vital Signs Temp 97.8 F 07/31/21 12:12 Pulse 110 H 07/31/21 12:12 Resp 16 07/31/21 12:12 BP 118/70 07/31/21 12:12 Pulse Ox 96 07/31/21 08:20 Intake & Output 07/30/21 07/31/21 07/31/21 18:59 06:59 18:59 Intake Total 2130 Output Total 215 675 9016 Balance 1680 -200 -1000 Weight 75.56 kg Intake: IV 950 Intake, IV Titration 100 Amount Clindamycin 900 mg In 50 Dextrose 5% in Water 50 ml @ 50 mls/hr IVPB Q8H [facility]RI Rx#:[id number] ceFAZolin 2 gm In Sodium 50 Chloride 0.9% 50 ml @ 100 mls/hr IVPB Q8HR [facility]RI Rx# :[id number] Oral 1080 Output: Drainage 200 Right 200 Urine 400 1000 Estimated Blood Loss 50 Other: Voiding Method Urinal Urinal Urinal # Voids 2 1 - Labs CBC & Chem 7: 07/31/21 06:10 07/31/21 06:10 Labs: Abnormal Lab Results - Last 24 Hours (Table) 07/30/21 07/30/21 07/30/21 Range/Units 17:20 18:07 19:58 WBC (4.50-10.00) X 10*3/uL RBC (4.40-5.60) X 10*6/uL Hgb (13.0-17.0) g/dL Hct (39.6-50.0) % MCHC (32.0-37.0) g/dL Immature Gran # (0.00-0.04) X 10*3/uL Neutrophils # (1.80-7.70) X 10*3/uL Monocytes # (0.20-1.00) X 10*3/uL Eosinophils # (0.04-0.35) X 10*3/uL Basophils # (0.00-0.10) X 10*3/uL Sodium (135-145) mmol/L Chloride (96-109) mmol/L Carbon Dioxide (20.0-27.5) mmol/L Anion Gap (10.00-18.00) mmol/L BUN (9.0-27.0) mg/dL BUN/Creatinine Ratio (12.00-20.00) Ratio Glucose (70-110) mg/dL POC Glucose (mg/dL) 101 H 105 H 190 H (75-99) mg/dL Calcium (8.7-10.3) mg/dL C-Reactive Protein (0.00-0.80) mg/dL 07/31/21 07/31/21 07/31/21 Range/Units 01:49 06:10 06:10 WBC 15.02 H (4.50-10.00) X 10*3/uL RBC 3.46 L (4.40-5.60) X 10*6/uL Hgb 10.6 L (13.0-17.0) g/dL Hct 33.2 L (39.6-50.0) % MCHC 31.9 L (32.0-37.0) g/dL Immature Gran # 0.67 H (0.00-0.04) X 10*3/uL Neutrophils # 10.89 H (1.80-7.70) X 10*3/uL Monocytes # 1.67 H (0.20-1.00) X 10*3/uL Eosinophils # 0.03 L (0.04-0.35) X 10*3/uL Basophils # 0.14 H (0.00-0.10) X 10*3/uL Sodium 134 L (135-145) mmol/L Chloride 94 L (96-109) mmol/L Carbon Dioxide 16.0 L (20.0-27.5) mmol/L Anion Gap 24.00 H (10.00-18.00) mmol/L BUN 6.8 L (9.0-27.0) mg/dL BUN/Creatinine Ratio 8.50 L (12.00-20.00) Ratio Glucose 349 H (70-110) mg/dL POC Glucose (mg/dL) 283 H (75-99) mg/dL Calcium 8.0 L (8.7-10.3) mg/dL C-Reactive Protein 10.50 H (0.00-0.80) mg/dL 07/31/21 07/31/21 Range/Units 06:58 12:08 WBC (4.50-10.00) X 10*3/uL RBC (4.40-5.60) X 10*6/uL Hgb (13.0-17.0) g/dL Hct (39.6-50.0) % MCHC (32.0-37.0) g/dL Immature Gran # (0.00-0.04) X 10*3/uL Neutrophils # (1.80-7.70) X 10*3/uL Monocytes # (0.20-1.00) X 10*3/uL Eosinophils # (0.04-0.35) X 10*3/uL Basophils # (0.00-0.10) X 10*3/uL Sodium (135-145) mmol/L Chloride (96-109) mmol/L Carbon Dioxide (20.0-27.5) mmol/L Anion Gap (10.00-18.00) mmol/L BUN (9.0-27.0) mg/dL BUN/Creatinine Ratio (12.00-20.00) Ratio Glucose (70-110) mg/dL POC Glucose (mg/dL) 357 H 366 H (75-99) mg/dL Calcium (8.7-10.3) mg/dL C-Reactive Protein (0.00-0.80) mg/dL Microbiology - Last 24 Hours (Table) 07/27/21 14:52 Anaerobic Culture - Final Foot - Right Anaerobic Gm Negative Bacilli Anaerobic Gram Positive Cocci 07/30/21 16:14 Anaerobic Culture - Preliminary Foot - Right 07/30/21 16:14 Tissue Culture - Preliminary Foot - Right 07/27/21 14:52 Gram Stain - Final Foot - Right Tissue Culture - Final Staphylococcus aureus Enterococcus avium Alpha Hemolytic Streptococcus 07/25/21 20:56 Blood Culture - Preliminary Blood No Growth after 120 hours
[2021-07-31] MEDS: SODIUM CHLORIDE 0.9% 1,000 ML IV SCH ×3 (16:40→23:35)
[2021-07-31 17:05] LABS: Glucose,Whole Blood 200 mg/dL (75-99)
--- NOTE | 2021-07-31 17:29 | FL ---
EXAMINATION TYPE: FL UGI w esophagus DATE OF EXAM: 07/31/2021 COMPARISON: X-ray dated 07/28/2021 HISTORY: Dysphagia, difficulty swallowing and burning pain with acid reflux. History of esophagitis a nd gastroenteritis TECHNIQUE: A double contrast UGI study is performed. A total of 4 minutes and 12 seconds of fluoros copic time was utilized during procedure. 85 spot images and 3 x-ray images were sent to PACS. FINDINGS: Food And Beverage Coordinator image of the abdomen shows no gross abnormality. The esophagus shows normal motility yet with slightly delayed emptying into the stomach. No evidence of hiatal hernia or stricture noted. The stomach shows normal distensibility and mucosal folds. No evidence of any mass or ulcer disease. No significant gastroesophageal reflux was seen during real time performance of this study. Significant delayed emptying of the stomach into the duodenum for more than 30 minutes under fluorosc opy. Delayed x-ray after about one hour from the start of the study demonstrated passage of some martinez um into the duodenum and proximal jejunal loops. This may suggest abnormal gastric emptying/gastropar esis, please correlate clinically. IMPRESSION: Delayed gastric emptying as described above which may suggest gastroparesis, please correlate clinica lly. Slightly delayed emptying of the esophagus into the stomach is also noted. Mild esophagitis adamaris ot be excluded. Recommend correlation with upper GI endoscopy results.
--- NOTE | 2021-07-31 19:03 | PN ---
PROGRESS NOTE This 35-year-old gentleman had right foot debridement with wound V.A.C. placement. The patient is growing Staph aureus. The wound V.A.C. is working. There is some drainage noted. Continue with IV antibiotics. We will change wound V.A.C. tomorrow. MMODL / IJN: [id number] /
[2021-07-31] MEDS: AMITRIPTYLINE HCL 10 MG TAB PO SCH (20:19)
[2021-07-31 20:31] LABS: Glucose,Whole Blood 233 mg/dL (75-99)
[2021-08-01] MEDS: CLINDAMYCIN 900 MG in DEXTROSE 5% IN WATER 50 ML IVPB SCH ×6 (02:07→18:14)
[2021-08-01 02:11] LABS: Glucose,Whole Blood 263 mg/dL (75-99)
[2021-08-01] MEDS: INSULIN ASPART (NovoLOG) 100 UNIT/ML VIAL SQ SCH ×5 (02:14→21:40)
[2021-08-01] MEDS: METOCLOPRAMIDE 5 MG/ML 2 ML VIAL IVP SCH ×3 (05:36→18:15)
[2021-08-01 07:15] LABS: Glucose,Whole Blood 278 mg/dL (75-99)
[2021-08-01] MEDS: HEPARIN SODIUM,PORCINE/PF 5,000 UNIT/0.5 ML SYRINGE SQ SCH ×2 (07:26→21:38)
[2021-08-01 07:48] LABS: African American GFR (CKD) >90 (>60 ml/min/1.73 sqM); Anion Gap 11 mmol/L; Blood Urea Nitrogen 5 mg/dL (9-20); Calcium 7.5 mg/dL (8.4-10.2); Carbon Dioxide 22 mmol/L (22-30); Chloride 99 mmol/L (98-107); Glucose 261 mg/dL (74-99); Non-African American GFR(CKD) >90 (>60 ml/min/1.73 sqM); Potassium 3.6 mmol/L (3.5-5.1); Sodium 132 mmol/L (137-145)
[2021-08-01 07:53] LABS: Basophils # (A) 0.1 k/uL (0-0.2); Basophils % (A) 1 %; Eosinophils # (A) 0.2 k/uL (0-0.7); Eosinophils % (A) 2 %; HCT 31.2 % (39.0-53.0); HGB 10.1 gm/dL (13.0-17.5); Hypochromasia Slight; Lymphocytes # (A) 1.4 k/uL (1.0-4.8); Lymphocytes % (A) 15 %; MCH 31.8 pg (25.0-35.0); MCHC 32.3 g/dL (31.0-37.0); MCV 98.5 fL (80.0-100.0); Monocytes # (A) 0.6 k/uL (0-1.0); Monocytes % (A) 7 %; Neutrophils # (A) 6.7 k/uL (1.3-7.7); Neutrophils % (A) 73 %; Platelet Count 426 k/uL (150-450); RBC 3.17 m/uL (4.30-5.90); RDW 13.6 % (11.5-15.5); WBC 9.2 k/uL (3.8-10.6)
[2021-08-01] MEDS: ALBUTEROL NEBULIZED 2.5 MG/3 ML INHALATION PRN ×3 (08:43→19:39)
[2021-08-01] MEDS: SYMBICORT 160-4.5 MCG INHALER INHALATION SCH ×2 (08:43→19:39)
[2021-08-01] MEDS: INSULIN DETEMIR (LEVEMIR) 100 UNIT/ML SYR SQ SCH (08:47)
[2021-08-01] MEDS: MONTELUKAST 10 MG TAB PO SCH (08:48)
[2021-08-01] MEDS: SERTRALINE 100 MG TAB PO SCH (08:48)
[2021-08-01] MEDS: LORATADINE 10 MG TAB PO SCH (08:48)
[2021-08-01] MEDS: PANTOPRAZOLE 40 MG/10 ML VIAL IVP SCH ×2 (08:48→21:38)
--- NOTE | 2021-08-01 09:02 | P.PN ---
Subjective Progress Note Date: 07/31/21 This is a pleasant 35-year-old male who was recently admitted with diabetic foot ulcer and being closely monitored. Patient is continued on IV antibiotics with infectious disease and vascular surgery following closely. The cultures are growing MSSA and awaiting finalized cultures. Vascular surgery following with discussion of possible further debridement and possible amputation. Patient reports to having continuous hiccups and feelings of esophageal fullness and reports to having gastritis and esophagitis previously and felt the same sensation. Patient reports to each meal he feels more difficult in swallowing and feels that is not passing through. General surgery consulted and pending at this time. Recommend nothing by mouth and aspiration precautions for now. 07/31/2021 Patient is seen in follow-up this morning continues with some hiccups and esophageal discomfort although feels has slightly improved. Multiple medical consultations following and patient also underwent debridement with Dr. Luu of the right foot. Patient is scheduled to undergo an upper GI series which is currently pending. Patient nothing by mouth for now. Patient does have a wound VAC noted and will continue local wound care along with IV antibiotics and ID following closely. Patient is afebrile. Patient denies any chest pain or shortness of breath. Review of systems: Constitutional: No reports of fatigue, fever, or chills Cardiovascular: No reports of chest pain or palpitations Respiratory: No reports of shortness of breath or cough GI: reports of nausea, no reports of of vomiting, reports of feeling fullness in his esophagus and continues with pickups : No reports of dysuria or retention Neurovascular: reports of generalized weakness, reports right foot pain All medications have been reviewed Active Medications Acetaminophen (Acetaminophen Tab 325 Mg Tab) 650 mg PO Q6HR PRN PRN Reason: Mild Pain or Fever > 100.5 Albuterol Sulfate (Albuterol Nebulized 2.5 Mg/3 Ml) 2.5 mg INHALATION RT-Q6H PRN PRN Reason: Shortness Of Breath Last Admin: 08/01/21 08:43 Dose: 2.5 mg Documented by: Amitriptyline HCl (Amitriptyline Hcl 10 Mg Tab) 10 mg PO HS BRI Last Admin: 07/31/21 20:19 Dose: 10 mg Documented by: Baclofen (Baclofen 10 Mg Tab) 10 mg PO TID PRN PRN Reason: Muscle Pain Last Admin: 07/29/21 00:28 Dose: 10 mg Documented by: Budesonide/Formoterol Fumarate (Symbicort 160-4.5 Mcg Inhaler) 2 puff INHALATION RT-BID [facility] Last Admin: 08/01/21 08:43 Dose: 2 puff Documented by: Calcium Carbonate/Glycine (Calcium Carbonate 500 Mg Chewable) 500 mg PO TID PRN PRN Reason: Heartburn Last Admin: 07/29/21 15:56 Dose: 500 mg Documented by: Heparin Sodium (Porcine) (Heparin Sodium,Porcine/Pf 5,000 Unit/0.5 Ml Syringe) 5,000 unit SQ Q12HR [facility] Last Admin: 08/01/21 07:26 Dose: Not Given Documented by: Sodium Chloride (Saline 0.9%) 1,000 mls @ 130 mls/hr IV .Q7H42M [facility] Last Admin: 07/31/21 23:35 Dose: 130 mls/hr Documented by: Clindamycin Phosphate 900 mg/ (Dextrose/Water) 56 mls @ 50 mls/hr IVPB Q8H [facility]; Protocol Last Admin: 08/01/21 08:49 Dose: 50 mls/hr Documented by: Cefazolin Sodium 2 gm/ Sodium (Chloride) 50 mls @ 100 mls/hr IVPB Q8HR [facility]; Protocol Last Admin: 08/01/21 08:49 Dose: 100 mls/hr Documented by: Insulin Aspart (Insulin Aspart (Novolog) 100 Unit/Ml Vial) 0 unit SQ [id number] [facility]; Protocol Last Admin: 08/01/21 08:47 Dose: 4 unit Documented by: Insulin Detemir (Insulin Detemir (Levemir) 100 Unit/Ml Syr) 14 unit SQ DAILY@0700 [facility] Last Admin: 08/01/21 08:47 Dose: 14 unit Documented by: Loratadine (Loratadine 10 Mg Tab) 10 mg PO DAILY [facility] Last Admin: 08/01/21 08:48 Dose: 10 mg Documented by: Metoclopramide HCl (Metoclopramide 5 Mg/Ml 2 Ml Vial) 5 mg IVP Q6HR [facility] Last Admin: 08/01/21 05:36 Dose: 5 mg Documented by: Montelukast Sodium (Montelukast 10 Mg Tab) 10 mg PO DAILY [facility] Last Admin: 08/01/21 08:48 Dose: 10 mg Documented by: Morphine Sulfate (Morphine Sulfate 4 Mg/Ml Syringe) 4 mg IV Q4HR PRN PRN Reason: Severe Pain Last Admin: 07/31/21 21:28 Dose: 4 mg Documented by: Naloxone HCl (Naloxone 0.4 Mg/Ml 1 Ml Vial) 0.2 mg IV Q2M PRN PRN Reason: Opioid Reversal Ondansetron HCl (Ondansetron 4 Mg/2 Ml Vial) 4 mg IVP Q6HR PRN PRN Reason: Nausea And Vomiting Last Admin: 07/29/21 12:28 Dose: 4 mg Documented by: Pantoprazole Sodium (Pantoprazole 40 Mg/10 Ml Vial) 40 mg IVP BID [facility] Last Admin: 08/01/21 08:48 Dose: 40 mg Documented by: Promethazine HCl (Promethazine 25 Mg Tab) 25 mg PO Q8HR PRN PRN Reason: Nausea Last Admin: 07/31/21 12:17 Dose: 25 mg Documented by: Sertraline HCl (Sertraline 100 Mg Tab) 100 mg PO DAILY [facility] Last Admin: 08/01/21 08:48 Dose: 100 mg Documented by: Trazodone HCl (Trazodone Hcl 50 Mg Tab) 50 mg PO HS PRN PRN Reason: sleep Last Admin: 07/27/21 23:58 Dose: 50 mg Documented by: PHYSICAL EXAMINATION: GENERAL: The patient is alert and oriented x4, Well developed, well nourished. HEENT: Pupils are round and equally reacting to light. EOMI. no scleral icterus. No conjunctival pallor. Normocephalic, atraumatic. No pharyngeal erythema. No thyromegaly. CARDIOVASCULAR: S1 and S2 muffled PULMONARY: diminished breath sounds bilaterally with some mild expiratory wheezing noted. ABDOMEN: soft. Nontender on exam. obese. non-distended, normoactive bowel sounds. No palpable organomegaly. MUSCULOSKELETAL: No joint swelling or deformity. EXTREMITIES: No cyanosis, clubbing, or pedal edema. Right foot noted with a wound VAC and continued redness on the upper portion of the foot NEUROLOGICAL: Gross neurological examination did not reveal any focal deficits. Diffuse weakness SKIN: No rashes. Assessment: Diabetic right foot cellulitis Diabetes mellitus, type II Difficulty in swallowing, dysphagia Hypertension Diabetic neuropathy Remote history of nicotine abuse, possible underlying COPD History of asthma GI prophylaxis DVT prophylaxis Full code Plan: Recommend to continue with current medications and management vascular surgery and ID following closely. Patient is maintained on IV antibiotics in the form of clindamycin along with cefazolin and will continue. Patient underwent debridement with Dr. Luu and wound VAC noted of the right foot and further discussion of possible amputation of the right lower extremity. Patient can use to have some difficulty in swallowing and continuous hiccups and reports to having a past medical history of esophagitis and gastritis and felt the same way. Patient currently nothing by mouth and underwent upper GI series that shows delayed gastric emptying that may suggest gastroparesis and slightly delayed emptying of the esophagus into the stomach also noted with mild esophagitis in the possible differential diagnoses recommend correlation with upper GI endoscopic he and Gen. surgery is following with possible plans for EGD and patient will continue nothing by mouth for now. Recommend continue monitoring Accu-Cheks closely and will continue with current medication regimen. Follow-up repeat labs in the morning and will continue to monitor closely. Due to multiple complex medical issues, prognosis is guarded. The impression and plan of care has been dictated by Loyda Chang, nurse practitioner as directed. MD Ximena I have performed a history and examination and MDM of this patient, discussed the same with the dictator, and agree with the dictator's assessment and plan as written ,documented as a scribe. Based on total visit time, I have performed more than 50% of the visit. Any additional findings or plans will be noted. Objective - Vital Signs Vital signs: Vital Signs Temp 97.8 F 07/31/21 08:17 Pulse 118 H 07/31/21 08:33 Resp 17 07/31/21 08:17 BP 114/57 07/31/21 08:17 Pulse Ox 96 07/31/21 08:20 Intake & Output 07/30/21 07/31/21 07/31/21 18:59 06:59 18:59 Intake Total 2130 Output Total 450 200 300 Balance 1680 -200 -300 Weight 75.56 kg Intake: IV 950 Intake, IV Titration 100 Amount Clindamycin 900 mg In 50 Dextrose 5% in Water 50 ml @ 50 mls/hr IVPB Q8H [facility]RI Rx#:[id number] ceFAZolin 2 gm In Sodium 50 Chloride 0.9% 50 ml @ 100 mls/hr IVPB Q8HR [facility]RI Rx# :[id number] Oral 1080 Output: Drainage 200 Right 200 Urine 400 300 Estimated Blood Loss 50 Other: Voiding Method Urinal Urinal Urinal # Voids 2 1 - Labs CBC & Chem 7: 08/01/21 07:11 08/01/21 07:11 Labs: Abnormal Lab Results - Last 24 Hours (Table) 07/30/21 07/30/21 07/30/21 Range/Units 11:31 14:51 17:20 POC Glucose (mg/dL) 200 H 107 H 101 H (75-99) mg/dL 07/30/21 07/30/21 07/31/21 Range/Units 18:07 19:58 01:49 POC Glucose (mg/dL) 105 H 190 H 283 H (75-99) mg/dL 07/31/21 Range/Units 06:58 POC Glucose (mg/dL) 357 H (75-99) mg/dL Microbiology - Last 24 Hours (Table) 07/25/21 20:56 Blood Culture - Preliminary Blood No Growth after 120 hours 07/27/21 14:52 Gram Stain - Preliminary Foot - Right Tissue Culture - Preliminary Presumptive Staph aureus Alpha Hemolytic Streptococcus
[2021-08-01] MEDS: ONDANSETRON 4 MG/2 ML VIAL IVP PRN (09:26)
[2021-08-01] MEDS: MORPHINE SULFATE 4 MG/ML SYRINGE IV PRN ×2 (09:29→17:23)
[2021-08-01 11:25] LABS: Glucose,Whole Blood 281 mg/dL (75-99)
[2021-08-01] MEDS ORDERED: LIDOCAINE 1% INJ 10MG/ML (20 ML MDV) ONE (11:58)
[2021-08-01] MEDS ORDERED: fentaNYL (PF) 50 MCG/ML 2 ML AMP ONE (11:58)
[2021-08-01] MEDS ORDERED: PROPOFOL 10 MG/ML 20 ML VIAL IV ONE (11:58)
[2021-08-01] MEDS ORDERED: IV FLUID CONTINUATION 1,000 ML IV ONE ×2 (12:01)
--- NOTE | 2021-08-01 12:20 | P.OP ---
Date of Procedure: 08/01/21 Preoperative Diagnosis: Dysphagia Postoperative Diagnosis: Antral gastritis No evidence of gastric outlet obstruction No evidence of hiatal hernia No significant esophagitis Procedure(s) Performed: EGD Anesthesia: MAC Surgeon: Home Rodriguez Pathology: other Condition: stable (Antrum) Disposition: PACU Description of Procedure: The patient's placed on the endoscopy table in the lateral position. He received IV sedation. The gastroscope placed oropharynx passed in the esophagus into the stomach. Scope some placed through the pylorus. The first and second portion duodenum appeared normal. Scope was brought back the antrum this is minimally inflamed. Biopsies performed. Scope was then retroflexed and the remainder the stomach appeared normal. The GE junction was at 47 is. There is no significant hiatal hernia. The distal esophagus appeared normal. The proximal esophagus appeared normal. Scope withdrawn for patient. Patient esophagram upper GI was reviewed. Patient is evidence of some dysmotility and gastric antrum paresis.
[2021-08-01 12:29] VITALS: BMI 20.8
[2021-08-01] MEDS: SODIUM CHLORIDE 0.9% 1,000 ML IV SCH (12:53)
--- NOTE | 2021-08-01 15:48 | P.PN ---
Subjective Progress Note Date: 08/01/21 This is a pleasant 35-year-old male who was recently admitted with diabetic foot ulcer and being closely monitored. Patient is continued on IV antibiotics with infectious disease and vascular surgery following closely. The cultures are growing MSSA and awaiting finalized cultures. Vascular surgery following with discussion of possible further debridement and possible amputation. Patient reports to having continuous hiccups and feelings of esophageal fullness and reports to having gastritis and esophagitis previously and felt the same sensation. Patient reports to each meal he feels more difficult in swallowing and feels that is not passing through. General surgery consulted and pending at this time. Recommend nothing by mouth and aspiration precautions for now. 07/31/2021 Patient is seen in follow-up this morning continues with some hiccups and esophageal discomfort although feels has slightly improved. Multiple medical consultations following and patient also underwent debridement with Dr. Luu of the right foot. Patient is scheduled to undergo an upper GI series which is currently pending. Patient nothing by mouth for now. Patient does have a wound VAC noted and will continue local wound care along with IV antibiotics and ID following closely. Patient is afebrile. Patient denies any chest pain or shortness of breath. 08/01/2021 Patient is seen and evaluated in follow-up today with at the bedside continues to have hiccups and reports to having episodes of the hiccups becoming so intense it makes him have shortness of breath. Gen. surgery following and pl an is for EGD today and will await report. Patient continues on IV antibiotics with infectious disease and Dr. Luu following closely. Patient reports to having a leak in the wound VAC this morning and was replaced. Redness and swelling has improved of the right lower extremity and encourage the patient to continue to elevate while at rest. Recommend close monitoring of blood sugars before meals and at bedtime and as needed and continue current medication regimen. Patient is afebrile denies any chest pain or shortness of breath at this time. Patient is currently nothing by mouth for the EGD today. Review of systems: Constitutional: No reports of fatigue, fever, or chills Cardiovascular: No reports of chest pain or palpitations Respiratory: No reports of shortness of breath or cough GI: No reports of nausea, no reports of of vomiting, reports of feeling fullness in his esophagus and continues with pickups : No reports of dysuria or retention Neurovascular: reports of generalized weakness, reports right foot tenderness although somewhat improved All medications have been reviewed Active Medications Acetaminophen (Acetaminophen Tab 325 Mg Tab) 650 mg PO Q6HR PRN PRN Reason: Mild Pain or Fever > 100.5 Albuterol Sulfate (Albuterol Nebulized 2.5 Mg/3 Ml) 2.5 mg INHALATION RT-Q6H PRN PRN Reason: Shortness Of Breath Last Admin: 08/01/21 08:43 Dose: 2.5 mg Documented by: Amitriptyline HCl (Amitriptyline Hcl 10 Mg Tab) 10 mg PO HS BRI Last Admin: 07/31/21 20:19 Dose: 10 mg Documented by: Baclofen (Baclofen 10 Mg Tab) 10 mg PO TID PRN PRN Reason: Muscle Pain Last Admin: 07/29/21 00:28 Dose: 10 mg Documented by: Budesonide/Formoterol Fumarate (Symbicort 160-4.5 Mcg Inhaler) 2 puff INHALATION RT-BID BRI Last Admin: 08/01/21 08:43 Dose: 2 puff Documented by: Calcium Carbonate/Glycine (Calcium Carbonate 500 Mg Chewable) 500 mg PO TID PRN PRN Reason: Heartburn Last Admin: 07/29/21 15:56 Dose: 500 mg Documented by: Heparin Sodium (Porcine) (Heparin Sodium,Porcine/Pf 5,000 Unit/0.5 Ml Syringe) 5,000 unit SQ Q12HR BRI Last Admin: 08/01/21 07:26 Dose: Not Given Documented by: Sodium Chloride (Saline 0.9%) 1,000 mls @ 130 mls/hr IV .Q7H42M BRI Last Admin: 08/01/21 12:53 Dose: 130 mls/hr Documented by: Clindamycin Phosphate 900 mg/ (Dextrose/Water) 56 mls @ 50 mls/hr IVPB Q8H BRI; Protocol Last Admin: 08/01/21 08:49 Dose: 50 mls/hr Documented by: Cefazolin Sodium 2 gm/ Sodium (Chloride) 50 mls @ 100 mls/hr IVPB Q8HR BRI; Protocol Last Admin: 08/01/21 08:49 Dose: 100 mls/hr Documented by: Insulin Aspart (Insulin Aspart (Novolog) 100 Unit/Ml Vial) 0 unit SQ [id number] BRI; Protocol Last Admin: 08/01/21 12:53 Dose: 4 unit Documented by: Insulin Detemir (Insulin Detemir (Levemir) 100 Unit/Ml Syr) 14 unit SQ DAILY@0700 [facility] Last Admin: 08/01/21 08:47 Dose: 14 unit Documented by: Loratadine (Loratadine 10 Mg Tab) 10 mg PO DAILY [facility] Last Admin: 08/01/21 08:48 Dose: 10 mg Documented by: Metoclopramide HCl (Metoclopramide 5 Mg/Ml 2 Ml Vial) 5 mg IVP Q6HR [facility] Last Admin: 08/01/21 11:25 Dose: 5 mg Documented by: Montelukast Sodium (Montelukast 10 Mg Tab) 10 mg PO DAILY [facility] Last Admin: 08/01/21 08:48 Dose: 10 mg Documented by: Morphine Sulfate (Morphine Sulfate 4 Mg/Ml Syringe) 4 mg IV Q4HR PRN PRN Reason: Severe Pain Last Admin: 08/01/21 09:29 Dose: 4 mg Documented by: Naloxone HCl (Naloxone 0.4 Mg/Ml 1 Ml Vial) 0.2 mg IV Q2M PRN PRN Reason: Opioid Reversal Ondansetron HCl (Ondansetron 4 Mg/2 Ml Vial) 4 mg IVP Q6HR PRN PRN Reason: Nausea And Vomiting Last Admin: 08/01/21 09:26 Dose: 4 mg Documented by: Pantoprazole Sodium (Pantoprazole 40 Mg/10 Ml Vial) 40 mg IVP BID [facility] Last Admin: 08/01/21 08:48 Dose: 40 mg Documented by: Promethazine HCl (Promethazine 25 Mg Tab) 25 mg PO Q8HR PRN PRN Reason: Nausea Last Admin: 07/31/21 12:17 Dose: 25 mg Documented by: Sertraline HCl (Sertraline 100 Mg Tab) 100 mg PO DAILY [facility] Last Admin: 08/01/21 08:48 Dose: 100 mg Documented by: Trazodone HCl (Trazodone Hcl 50 Mg Tab) 50 mg PO HS PRN PRN Reason: sleep Last Admin: 07/27/21 23:58 Dose: 50 mg Documented by: PHYSICAL EXAMINATION: GENERAL: The patient is alert and oriented x4, Well developed, well nourished. HEENT: Pupils are round and equally reacting to light. EOMI. no scleral icterus. No conjunctival pallor. Normocephalic, atraumatic. No pharyngeal erythema. No thyromegaly. CARDIOVASCULAR: S1 and S2 muffled PULMONARY: diminished breath sounds bilaterally with some mild expiratory wheezing noted. ABDOMEN: soft. Nontender on exam. obese. non-distended, normoactive bowel sounds. No palpable organomegaly. Persistent hiccups on exam MUSCULOSKELETAL: No joint swelling or deformity. EXTREMITIES: No cyanosis, clubbing, or pedal edema. Right foot noted with a wound VAC and continued redness on the upper portion of the foot although improved from yesterday NEUROLOGICAL: Gross neurological examination did not reveal any focal deficits. Diffuse weakness SKIN: No rashes. Assessment: Diabetic right foot cellulitis Diabetes mellitus, type II Difficulty in swallowing, dysphagia Hypertension Diabetic neuropathy Remote history of nicotine abuse, possible underlying COPD History of asthma GI prophylaxis DVT prophylaxis Full code Plan: Recommend to continue with current medications and management vascular surgery and ID following closely. Patient is maintained on IV antibiotics in the form of clindamycin along with cefazolin and will continue. Patient underwent debridement with Dr. Luu and wound VAC noted of the right foot. Patient continues to have some difficulty in swallowing and continuous hiccups and underwent upper GI series that shows delayed gastric emptying that may suggest gastroparesis and slightly delayed emptying of the esophagus into the stomach also noted with mild esophagitis in the possible differential diagnoses. plans for EGD today will continue nothing by mouth for now. Will also need to discuss with infectious disease and vascular surgery about requiring IV antibiotic therapy in the outpatient setting and treatment plan moving forward. Recommend continue monitoring Accu-Cheks closely and will continue with current medication regimen. Follow-up repeat labs in the morning and will continue to monitor closely. Due to multiple complex medical issues, prognosis is guarded. The impression and plan of care has been dictated by Loyda Chang nurse practitioner as directed. MD Ximena I have performed a history and examination and MDM of this patient, discussed the same with the dictator, and agree with the dictator's assessment and plan as written ,documented as a scribe. Based on total visit time, I have performed more than 50% of the visit. Any additional findings or plans will be noted. Objective - Vital Signs Vital signs: Vital Signs Temp 98.1 F 04/14/22 08:01 Pulse 101 H 08/01/21 08:44 Resp 18 08/01/21 08:01 BP 119/71 08/01/21 08:01 Pulse Ox 96 08/01/21 08:44 Intake & Output 07/31/21 08/01/21 08/01/21 18:59 06:59 18:59 Intake Total 100 Output Total 1000 300 Balance -1000 -200 Intake: Oral 100 Output: Urine 1000 300 Other: Voiding Method Urinal Urinal Urinal # Voids 3 2 - Labs CBC & Chem 7: 08/01/21 07:11 08/01/21 07:11 Labs: Abnormal Lab Results - Last 24 Hours (Table) 07/31/21 07/31/21 07/31/21 Range/Units 06:10 06:10 12:08 WBC 15.02 H (4.50-10.00) X 10*3/uL RBC 3.46 L (4.40-5.60) X 10*6/uL Hgb 10.6 L (13.0-17.0) g/dL Hct 33.2 L (39.6-50.0) % MCHC 31.9 L (32.0-37.0) g/dL Immature Gran # 0.67 H (0.00-0.04) X 10*3/uL Neutrophils # 10.89 H (1.80-7.70) X 10*3/uL Monocytes # 1.67 H (0.20-1.00) X 10*3/uL Eosinophils # 0.03 L (0.04-0.35) X 10*3/uL Basophils # 0.14 H (0.00-0.10) X 10*3/uL Sodium 134 L (135-145) mmol/L Chloride 94 L (96-109) mmol/L Carbon Dioxide 16.0 L (20.0-27.5) mmol/L Anion Gap 24.00 H (10.00-18.00) mmol/L BUN 6.8 L (9.0-27.0) mg/dL Creatinine (0.66-1.25) mg/dL BUN/Creatinine Ratio 8.50 L (12.00-20.00) Ratio Glucose 349 H (70-110) mg/dL POC Glucose (mg/dL) 366 H (75-99) mg/dL Calcium 8.0 L (8.7-10.3) mg/dL C-Reactive Protein 10.50 H (0.00-0.80) mg/dL 07/31/21 07/31/21 08/01/21 Range/Units 17:03 20:18 02:10 WBC (4.50-10.00) X 10*3/uL RBC (4.40-5.60) X 10*6/uL Hgb (13.0-17.0) g/dL Hct (39.6-50.0) % MCHC (32.0-37.0) g/dL Immature Gran # (0.00-0.04) X 10*3/uL Neutrophils # (1.80-7.70) X 10*3/uL Monocytes # (0.20-1.00) X 10*3/uL Eosinophils # (0.04-0.35) X 10*3/uL Basophils # (0.00-0.10) X 10*3/uL Sodium (135-145) mmol/L Chloride (96-109) mmol/L Carbon Dioxide (20.0-27.5) mmol/L Anion Gap (10.00-18.00) mmol/L BUN (9.0-27.0) mg/dL Creatinine (0.66-1.25) mg/dL BUN/Creatinine Ratio (12.00-20.00) Ratio Glucose (70-110) mg/dL POC Glucose (mg/dL) 200 H 233 H 263 H (75-99) mg/dL Calcium (8.7-10.3) mg/dL C-Reactive Protein (0.00-0.80) mg/dL 08/01/21 08/01/21 08/01/21 Range/Units 07:11 07:11 07:13 WBC (4.50-10.00) X 10*3/uL RBC 3.17 L (4.40-5.60) X 10*6/uL Hgb 10.1 L (13.0-17.0) g/dL Hct 31.2 L (39.6-50.0) % MCHC (32.0-37.0) g/dL Immature Gran # (0.00-0.04) X 10*3/uL Neutrophils # (1.80-7.70) X 10*3/uL Monocytes # (0.20-1.00) X 10*3/uL Eosinophils # (0.04-0.35) X 10*3/uL Basophils # (0.00-0.10) X 10*3/uL Sodium 132 L (135-145) mmol/L Chloride (96-109) mmol/L Carbon Dioxide (20.0-27.5) mmol/L Anion Gap (10.00-18.00) mmol/L BUN 5 L (9.0-27.0) mg/dL Creatinine 0.59 L (0.66-1.25) mg/dL BUN/Creatinine Ratio (12.00-20.00) Ratio Glucose 261 H (70-110) mg/dL POC Glucose (mg/dL) 278 H (75-99) mg/dL Calcium 7.5 L (8.7-10.3) mg/dL C-Reactive Protein (0.00-0.80) mg/dL Microbiology - Last 24 Hours (Table) 07/25/21 20:56 Blood Culture - Final Blood No Growth after 144 hours 07/27/21 14:52 Anaerobic Culture - Final Foot - Right Anaerobic Gm Negative Bacilli Anaerobic Gram Positive Cocci 07/30/21 16:14 Anaerobic Culture - Preliminary Foot - Right 07/30/21 16:14 Tissue Culture - Preliminary Foot - Right 07/27/21 14:52 Gram Stain - Final Foot - Right Tissue Culture - Final Staphylococcus aureus Enterococcus avium Alpha Hemolytic Streptococcus
[2021-08-01 17:32] LABS: Glucose,Whole Blood 213 mg/dL (75-99)
--- NOTE | 2021-08-01 18:16 | PN ---
PROGRESS NOTE This is a 35-year-old gentleman who has an infected callus with marked redness and blister formation of the right foot. The patient went for extensive wound debridement. Culture came back as anaerobic Gram-negative bacilli, anaerobic Gram-positive cocci and Staphylococcus aureus, under care of Infectious Disease for IV antibiotic. We have performed debridement and wound V.A.C. placement. Redness is less on the dorsal aspect of the foot. We will continue with IV antibiotic and wound V.A.C. therapy. We will discuss with Infectious Disease. Patient needs a PICC line for long-term antibiotic. MMODL / IJN: [id number] /
[2021-08-01 20:27] VITALS: RESP 18
[2021-08-01 21:11] LABS: Glucose,Whole Blood 325 mg/dL (75-99)
[2021-08-01] MEDS: AMITRIPTYLINE HCL 10 MG TAB PO SCH (21:38)
--- NOTE | 2021-08-02 00:16 | P.PN ---
Subjective Progress Note Date: 07/31/21 Principal diagnosis: Right diabetic foot infection Patient is a 35-year-old male presented to hospital right foot swelling and redness in this patient noticed to have a right foot plantar infected callus and blistering on the dorsum aspect of the right foot, patient did have a CT of the foot completed last night did not show any evidence of drainable abscess. Patient is status post surgical drainage of the abscess by vascular surgery on 07/27/2021 on today's evaluation that is 07/31/2021, the patient remains to be afebrile, the patient pain to the right foot is controlled,, the patient denies chest pain shortness of breath or cough no abdominal pain and no diarrhea Objective - Vital Signs Vital signs: Vital Signs Temp 97.8 F 07/31/21 12:12 Pulse 110 H 07/31/21 12:12 Resp 16 07/31/21 12:12 BP 118/70 07/31/21 12:12 Pulse Ox 96 07/31/21 08:20 Intake & Output 07/30/21 07/31/21 07/31/21 18:59 06:59 18:59 Intake Total 2130 Output Total 450 200 300 Balance 1680 -200 -300 Weight 75.56 kg Intake: IV 950 Intake, IV Titration 100 Amount Clindamycin 900 mg In 50 Dextrose 5% in Water 50 ml @ 50 mls/hr IVPB Q8H BRI Rx#:[id number] ceFAZolin 2 gm In Sodium 50 Chloride 0.9% 50 ml @ 100 mls/hr IVPB Q8HR BRI Rx# :[id number] Oral 1080 Output: Drainage 200 Right 200 Urine 400 300 Estimated Blood Loss 50 Other: Voiding Method Urinal Urinal Urinal # Voids 2 1 - Exam GENERAL DESCRIPTION: A middle-aged male lying in bed in no distress RESPIRATORY SYSTEM: Unlabored breathing , decreased breath sounds at bases HEART: S1 S2 regular rate and rhythm , ABDOMEN: Soft , no tenderness EXTREMITIES: Right foot wound is currently covered with a wound VAC - Labs CBC & Chem 7: 08/01/21 07:11 08/01/21 07:11 Labs: Abnormal Lab Results - Last 24 Hours (Table) 07/30/21 07/30/21 07/30/21 Range/Units 14:51 17:20 18:07 WBC (4.50-10.00) X 10*3/uL RBC (4.40-5.60) X 10*6/uL Hgb (13.0-17.0) g/dL Hct (39.6-50.0) % MCHC (32.0-37.0) g/dL Immature Gran # (0.00-0.04) X 10*3/uL Neutrophils # (1.80-7.70) X 10*3/uL Monocytes # (0.20-1.00) X 10*3/uL Eosinophils # (0.04-0.35) X 10*3/uL Basophils # (0.00-0.10) X 10*3/uL Sodium (135-145) mmol/L Chloride (96-109) mmol/L Carbon Dioxide (20.0-27.5) mmol/L Anion Gap (10.00-18.00) mmol/L BUN (9.0-27.0) mg/dL BUN/Creatinine Ratio (12.00-20.00) Ratio Glucose (70-110) mg/dL POC Glucose (mg/dL) 107 H 101 H 105 H (75-99) mg/dL Calcium (8.7-10.3) mg/dL C-Reactive Protein (0.00-0.80) mg/dL 07/30/21 07/31/21 07/31/21 Range/Units 19:58 01:49 06:10 WBC 15.02 H (4.50-10.00) X 10*3/uL RBC 3.46 L (4.40-5.60) X 10*6/uL Hgb 10.6 L (13.0-17.0) g/dL Hct 33.2 L (39.6-50.0) % MCHC 31.9 L (32.0-37.0) g/dL Immature Gran # 0.67 H (0.00-0.04) X 10*3/uL Neutrophils # 10.89 H (1.80-7.70) X 10*3/uL Monocytes # 1.67 H (0.20-1.00) X 10*3/uL Eosinophils # 0.03 L (0.04-0.35) X 10*3/uL Basophils # 0.14 H (0.00-0.10) X 10*3/uL Sodium (135-145) mmol/L Chloride (96-109) mmol/L Carbon Dioxide (20.0-27.5) mmol/L Anion Gap (10.00-18.00) mmol/L BUN (9.0-27.0) mg/dL BUN/Creatinine Ratio (12.00-20.00) Ratio Glucose (70-110) mg/dL POC Glucose (mg/dL) 190 H 283 H (75-99) mg/dL Calcium (8.7-10.3) mg/dL C-Reactive Protein (0.00-0.80) mg/dL 07/31/21 07/31/21 07/31/21 Range/Units 06:10 06:58 12:08 WBC (4.50-10.00) X 10*3/uL RBC (4.40-5.60) X 10*6/uL Hgb (13.0-17.0) g/dL Hct (39.6-50.0) % MCHC (32.0-37.0) g/dL Immature Gran # (0.00-0.04) X 10*3/uL Neutrophils # (1.80-7.70) X 10*3/uL Monocytes # (0.20-1.00) X 10*3/uL Eosinophils # (0.04-0.35) X 10*3/uL Basophils # (0.00-0.10) X 10*3/uL Sodium 134 L (135-145) mmol/L Chloride 94 L (96-109) mmol/L Carbon Dioxide 16.0 L (20.0-27.5) mmol/L Anion Gap 24.00 H (10.00-18.00) mmol/L BUN 6.8 L (9.0-27.0) mg/dL BUN/Creatinine Ratio 8.50 L (12.00-20.00) Ratio Glucose 349 H (70-110) mg/dL POC Glucose (mg/dL) 357 H 366 H (75-99) mg/dL Calcium 8.0 L (8.7-10.3) mg/dL C-Reactive Protein 10.50 H (0.00-0.80) mg/dL Microbiology - Last 24 Hours (Table) 07/27/21 14:52 Gram Stain - Final Foot - Right Tissue Culture - Final Staphylococcus aureus Enterococcus avium Alpha Hemolytic Streptococcus 07/25/21 20:56 Blood Culture - Preliminary Blood No Growth after 120 hours Assessment and Plan (1) Diabetic foot infection Current Visit: Yes Status: Acute Code(s): E11.628 - TYPE 2 DIABETES MELLITUS WITH OTHER SKIN COMPLICATIONS; L08.9 - LOCAL INFECTION OF THE SKIN AND SUBCUTANEOUS TISSUE, UNSP SNOMED Code(s): 765726820 Plan: 1patient presented hospital with extensive right diabetic foot infection with likely a infected callus on the plantar aspect of the right foot with concern for secondary cellulitis and sepsis and possible concern for underlying abscess will need to cover for the both gram-positive as well as gram-negative pathogen. 2penicillin allergy that would limit the number of antibiotics safe to use. 3 CT of the right foot did not show any abscess. 4-patient has been evaluated by vascular surgery and is status post surgical debridement with concern for possible deep infection and did have extensive surgical debridement and placement of the wound VAC 5-the patient wound culture has been finalized with MSSA and Streptococcus, blood culture has been negative patient is currently being treated with cefazolin 2 g every 8 hours and clindamycin, white count is trending down Time with Patient: Less than 30
--- NOTE | 2021-08-02 00:17 | P.PN ---
Subjective Progress Note Date: 08/01/21 Principal diagnosis: Right diabetic foot infection Patient is a 35-year-old male presented to hospital right foot swelling and redness in this patient noticed to have a right foot plantar infected callus and blistering on the dorsum aspect of the right foot, patient did have a CT of the foot completed last night did not show any evidence of drainable abscess. Patient is status post surgical drainage of the abscess by vascular surgery on 07/27/2021 on today's evaluation that is 08/01/2021, the patient continues to be afebrile, the patient denies pain to the right foot, the patient denies chest pain shortness of breath or cough no abdominal pain and no diarrhea Objective - Vital Signs Vital signs: Vital Signs Temp 98.3 F 08/01/21 11:46 Pulse 105 H 08/01/21 11:46 Resp 20 08/01/21 11:46 BP 120/76 08/01/21 11:46 Pulse Ox 91 L 08/01/21 11:46 Intake & Output 07/31/21 08/01/21 08/01/21 18:59 06:59 18:59 Intake Total 100 50 Output Total 1000 300 400 Balance -1000 -200 -350 Weight 75.56 kg Intake: IV 50 Oral 100 Output: Urine 1000 300 400 Other: Voiding Method Urinal Urinal Urinal # Voids 3 2 - Exam GENERAL DESCRIPTION: A middle-aged male lying in bed in no distress RESPIRATORY SYSTEM: Unlabored breathing , decreased breath sounds at bases HEART: S1 S2 regular rate and rhythm , ABDOMEN: Soft , no tenderness EXTREMITIES: Right foot wound is currently covered with a wound VAC - Labs CBC & Chem 7: 08/01/21 07:11 08/01/21 07:11 Labs: Abnormal Lab Results - Last 24 Hours (Table) 07/31/21 07/31/21 08/01/21 Range/Units 17:03 20:18 02:10 RBC (4.30-5.90) m/uL Hgb (13.0-17.5) gm/dL Hct (39.0-53.0) % Sodium (137-145) mmol/L BUN (9-20) mg/dL Creatinine (0.66-1.25) mg/dL Glucose (74-99) mg/dL POC Glucose (mg/dL) 200 H 233 H 263 H (75-99) mg/dL Calcium (8.4-10.2) mg/dL 08/01/21 08/01/21 08/01/21 Range/Units 07:11 07:11 07:13 RBC 3.17 L (4.30-5.90) m/uL Hgb 10.1 L (13.0-17.5) gm/dL Hct 31.2 L (39.0-53.0) % Sodium 132 L (137-145) mmol/L BUN 5 L (9-20) mg/dL Creatinine 0.59 L (0.66-1.25) mg/dL Glucose 261 H (74-99) mg/dL POC Glucose (mg/dL) 278 H (75-99) mg/dL Calcium 7.5 L (8.4-10.2) mg/dL 08/01/21 Range/Units 11:23 RBC (4.30-5.90) m/uL Hgb (13.0-17.5) gm/dL Hct (39.0-53.0) % Sodium (137-145) mmol/L BUN (9-20) mg/dL Creatinine (0.66-1.25) mg/dL Glucose (74-99) mg/dL POC Glucose (mg/dL) 281 H (75-99) mg/dL Calcium (8.4-10.2) mg/dL Microbiology - Last 24 Hours (Table) 07/30/21 16:14 Gram Stain - Preliminary Foot - Right Tissue Culture - Preliminary 07/25/21 20:56 Blood Culture - Final Blood No Growth after 144 hours 07/27/21 14:52 Anaerobic Culture - Final Foot - Right Anaerobic Gm Negative Bacilli Anaerobic Gram Positive Cocci 07/30/21 16:14 Anaerobic Culture - Preliminary Foot - Right 07/27/21 14:52 Gram Stain - Final Foot - Right Tissue Culture - Final Staphylococcus aureus Enterococcus avium Alpha Hemolytic Streptococcus Assessment and Plan (1) Diabetic foot infection Current Visit: Yes Status: Acute Code(s): E11.628 - TYPE 2 DIABETES MELLITUS WITH OTHER SKIN COMPLICATIONS; L08.9 - LOCAL INFECTION OF THE SKIN AND SUBCUTANEOUS TISSUE, UNSP SNOMED Code(s): 283874969 Plan: 1patient presented hospital with extensive right diabetic foot infection with likely a infected callus on the plantar aspect of the right foot with concern for secondary cellulitis and sepsis and possible concern for underlying abscess will need to cover for the both gram-positive as well as gram-negative pathogen. 2penicillin allergy that would limit the number of antibiotics safe to use. 3 CT of the right foot did not show any abscess. 4-patient has been evaluated by vascular surgery and is status post surgical debridement with concern for possible deep infection and did have extensive surgical debridement and placement of the wound VAC 5-the patient wound culture has been finalized with MSSA, enterococcus and anaerobes, patient to have penicillin ALLERGY, to continue with cefazolin switch clindamycin to Flagyl and monitor his clinical course closely Time with Patient: Less than 30
[2021-08-02] MEDS: METOCLOPRAMIDE 5 MG/ML 2 ML VIAL IVP SCH ×3 (00:31→12:32)
[2021-08-02 01:31] LABS: Glucose,Whole Blood 252 mg/dL (75-99)
[2021-08-02] MEDS: INSULIN ASPART (NovoLOG) 100 UNIT/ML VIAL SQ SCH ×3 (01:38→12:32)
[2021-08-02] MEDS: MORPHINE SULFATE 4 MG/ML SYRINGE IV PRN ×2 (03:17→08:06)
[2021-08-02] MEDS: SODIUM CHLORIDE 0.9% 1,000 ML IV SCH ×4 (03:18→15:41)
[2021-08-02 07:14] LABS: Glucose,Whole Blood 356 mg/dL (75-99)
[2021-08-02] MEDS: SERTRALINE 100 MG TAB PO SCH (08:06)
[2021-08-02] MEDS: INSULIN DETEMIR (LEVEMIR) 100 UNIT/ML SYR SQ SCH (08:06)
[2021-08-02] MEDS: MONTELUKAST 10 MG TAB PO SCH (08:06)
[2021-08-02] MEDS: metroNIDAZOLE 500 MG TAB PO SCH ×2 (08:06→15:38)
[2021-08-02] MEDS: LORATADINE 10 MG TAB PO SCH (08:06)
[2021-08-02] MEDS: HEPARIN SODIUM,PORCINE/PF 5,000 UNIT/0.5 ML SYRINGE SQ SCH (08:07)
[2021-08-02] MEDS: PANTOPRAZOLE 40 MG/10 ML VIAL IVP SCH (08:07)
[2021-08-02] MEDS: SYMBICORT 160-4.5 MCG INHALER INHALATION SCH (08:15)
[2021-08-02] MEDS: ALBUTEROL NEBULIZED 2.5 MG/3 ML INHALATION PRN (08:15)
[2021-08-02] MEDS ORDERED: LIDOCAINE 1% INJ 10MG/ML (20 ML MDV) ONE (09:59)
[2021-08-02] MEDS ORDERED: SENNOSIDES 8.6 MG TAB PO SCH (11:15)
--- NOTE | 2021-08-02 11:36 | IR ---
PICC LINE PLACEMENT: HISTORY: Infection requiring long-term antibiotic therapy PROCEDURE: Ultrasound and fluoroscopic guidance of PICC line placement. COMPLICATIONS: None ANESTHESIA: 1. 1% Lidocaine locally. FINDINGS/TECHNIQUE: The procedure was explained to the patient. The risks, complications, benefits and alternatives were discussed and any questions were answered. Informed consent was obtained. The patient was placed supine on the fluoroscopic table and prepped and draped in the usual sterile fash ion. Utilizing a 21 gauge needle and sonographic and fluoroscopic guidance, access in the left basi lic vein was achieved and there is placement of a 0.018 guidewire. The vein is patent. A 4-F sheath was placed over the guidewire. The guidewire and dilator were removed and a 4-F. PICC line was plac ed through the sheath with the tip at the level of the SVC. The sheath was removed, the catheter was flushed and sutured into position. The patient was stable throughout the procedure and remained sta ble upon discharge from the Department of Radiology. The vein puncture was patent under ultrasound. A alonso scale image was obtained to document patency of the vein punctured. All elements of the maximal barrier technique were utilized. FLUOROSCOPY TIME: 0.1 minutes of fluoroscopy and one image submitted IMPRESSION: Successful PICC line placement under ultrasound and fluoroscopic guidance.
[2021-08-02 11:56] LABS: Glucose,Whole Blood 273 mg/dL (75-99)
[2021-08-02 15:09] VITALS: BP 120/62; PULSE 93; TEMP 98.2
--- NOTE | 2021-08-02 16:24 | P.PN ---
Subjective Progress Note Date: 08/02/21 Principal diagnosis: Dysphagia Patient doing better today. Tolerating diet thus far. Seems to do better with softer foods. He states he is going home today after antibiotics Objective - Vital Signs Vital signs: Vital Signs Temp 98.2 F 08/02/21 13:00 Pulse 93 08/02/21 13:00 Resp 18 08/02/21 13:00 BP 120/62 08/02/21 13:00 Pulse Ox 93 L 08/02/21 13:00 Intake & Output 08/01/21 08/02/21 08/02/21 18:59 06:59 18:59 Intake Total 950 440 Output Total 400 700 Balance 550 440 -700 Weight 75.56 kg 75.56 kg Intake: IV 50 Intake, IV Titration 900 Amount Sodium Chloride 0.9% 1, 900 000 ml @ 130 mls/hr IV . Q7H42M [facility] Rx#:[id number] Oral 440 Output: Urine 400 700 Other: Voiding Method Urinal Toilet Urinal # Voids 3 - Exam Abdomen: Soft, nontender, nondistended - Labs CBC & Chem 7: 08/01/21 07:11 08/01/21 07:11 Labs: Abnormal Lab Results - Last 24 Hours (Table) 08/01/21 08/01/21 08/02/21 Range/Units 17:31 21:09 01:26 POC Glucose (mg/dL) 213 H 325 H 252 H (75-99) mg/dL 08/02/21 08/02/21 Range/Units 07:10 11:43 POC Glucose (mg/dL) 356 H 273 H (75-99) mg/dL Microbiology - Last 24 Hours (Table) 07/30/21 16:14 Gram Stain - Preliminary Foot - Right Tissue Culture - Preliminary Presumptive Staph aureus Gram Neg Bacilli Alpha Hemolytic Streptococcus Assessment and Plan (1) Gastroparesis Narrative/Plan: 35-year-old male with suspected diabetic gastroparesis. Doing better at this time. Continue small meals frequently. Follow-up was discharge. Current Visit: Yes Status: Acute Code(s): K31.84 - GASTROPARESIS SNOMED Code(s): 188727439
--- NOTE | 2021-08-02 16:37 | P.PN ---
Subjective Progress Note Date: 08/02/21 Principal diagnosis: Right diabetic foot infection Patient is a 35-year-old male presented to hospital right foot swelling and redness in this patient noticed to have a right foot plantar infected callus and blistering on the dorsum aspect of the right foot, patient did have a CT of the foot completed last night did not show any evidence of drainable abscess. Patient is status post surgical drainage of the abscess by vascular surgery on 07/27/2021 on today's evaluation that is 08/02/2021, the patient remains to be afebrile, the patient pain to the right foot is currently controlled, the patient denies chest pain shortness of breath or cough, the patient denies abdominal pain and no diarrhea Objective - Vital Signs Vital signs: Vital Signs Temp 98.9 F 08/02/21 04:30 Pulse 91 08/02/21 08:27 Resp 18 08/02/21 04:30 BP 123/74 08/02/21 04:30 Pulse Ox 94 L 08/02/21 08:15 Intake & Output 08/01/21 08/02/21 08/02/21 18:59 06:59 18:59 Intake Total 950 440 Output Total 400 700 Balance 550 440 -700 Weight 75.56 kg 75.56 kg Intake: IV 50 Intake, IV Titration 900 Amount Sodium Chloride 0.9% 1, 900 000 ml @ 130 mls/hr IV . Q7H42M [facility] Rx#:[id number] Oral 440 Output: Urine 400 700 Other: Voiding Method Urinal Toilet Urinal # Voids 3 - Exam GENERAL DESCRIPTION: A middle-aged male lying in bed in no distress RESPIRATORY SYSTEM: Unlabored breathing , decreased breath sounds at bases HEART: S1 S2 regular rate and rhythm , ABDOMEN: Soft , no tenderness EXTREMITIES: Right foot wound is currently covered with a wound VAC - Labs CBC & Chem 7: 08/01/21 07:11 08/01/21 07:11 Labs: Abnormal Lab Results - Last 24 Hours (Table) 08/01/21 08/01/21 08/02/21 Range/Units 17:31 21:09 01:26 POC Glucose (mg/dL) 213 H 325 H 252 H (75-99) mg/dL 08/02/21 08/02/21 Range/Units 07:10 11:43 POC Glucose (mg/dL) 356 H 273 H (75-99) mg/dL Microbiology - Last 24 Hours (Table) 07/30/21 16:14 Gram Stain - Preliminary Foot - Right Tissue Culture - Preliminary Presumptive Staph aureus Gram Neg Bacilli Alpha Hemolytic Streptococcus Assessment and Plan (1) Diabetic foot infection Current Visit: Yes Status: Acute Code(s): E11.628 - TYPE 2 DIABETES MELLITUS WITH OTHER SKIN COMPLICATIONS; L08.9 - LOCAL INFECTION OF THE SKIN AND SUBCUTANEOUS TISSUE, UNSP SNOMED Code(s): 310364439 Plan: 1patient presented hospital with extensive right diabetic foot infection with likely a infected callus on the plantar aspect of the right foot with concern for secondary cellulitis and sepsis and possible concern for underlying abscess will need to cover for the both gram-positive as well as gram-negative pathogen. 2penicillin allergy that would limit the number of antibiotics safe to use. 3 CT of the right foot did not show any abscess. 4-patient has been evaluated by vascular surgery and is status post surgical debridement with concern for possible deep infection and did have extensive surgical debridement and placement of the wound VAC 5-the patient wound culture has been finalized with MSSA, enterococcus and anaerobes, patient to have penicillin ALLERGY, patient did get a PICC line ordered by vascular surgery, plan is for cefazolin 2 g every 8 hours for 4 weeks along with oral Flagyl 500 mg 3 times a day and a close outpatient follow-up Time with Patient: Less than 30
--- NOTE | 2021-08-03 15:03 | P.DS ---
Providers Date of admission: 07/26/21 13:11 Expected date of discharge: 08/02/21 Attending physician: Holly Fraser Consults: 07/25/21 22:06 Consult Physician Urgent Consulting Provider: Brett Perez Consult Reason/Comments: diabetic foot infection Do you want consulting provider notified?: Yes 07/26/21 17:15 Consult Physician Urgent Consulting Provider: Tristin Luu Consult Reason/Comments: right foot infected callus and possible abscess Do you want consulting provider notified?: Yes 07/30/21 10:17 Consult Physician Urgent Consulting Provider: Home Rodriguez Consult Reason/Comments: excessive hiccups, hx of esophagitis, feeling like food is trapped Do you want consulting provider notified?: Yes Primary care physician: Shivani Arana Hospital Course: Final diagnosis Diabetic right foot cellulitis with MSSA Diabetes mellitus, type II, uncontrolled with hyperglycemia Dysphagia possibly secondary to Dysmotility and gastric antrum paresis Hypertension Diabetic neuropathy Remote history of nicotine abuse, possible underlying COPD History of asthma GI prophylaxis DVT prophylaxis Full code Discharge disposition Patient is being discharged in a stable condition with guarded prognosis to home. Patient will follow-up with Dr. Parrish in the outpatient setting upon discharge. Patient is to continue with cefazolin and flagyl IV per ID recommendations as scheduled. Patient will need follow up with surgery, vascular surgery, and ID in the outpatient setting. Patient to continue with wound vac, home care, and yasmine infusion. Total time taken is greater than 35 minutes. Hospital course This is a 35-year-old male who was recently admitted with right foot diabetic infection and underwent debridement and continued on IV antibiotics. Patient with multiple organisms growing on the cultures and MSSA and will be continued on flagyl and cefazolin with ID following and will have continued home care and wound vac. Patient will follow up with Dr. perez and Dr. Luu vascular surgery in one week. Patient to also follow up with Dr. Rodriguez for EGD biopsy results. Patient with antrum gastritis. Encouraged the patient to closely monitor blood sugars and keep a diary of reading and referral provided to follow up with endocrine on discharge. Currently no reports of chest pain, shortness of breath, or palpitations. Patient is afebrile. No reports of nausea or vomiting and patient is tolerating diet. Patient will be discharged home today. PHYSICAL EXAMINATION: GENERAL: The patient is alert and oriented x4, Well developed, well nourished. HEENT: Pupils are round and equally reacting to light. EOMI. no scleral icterus. No conjunctival pallor. Normocephalic, atraumatic. No pharyngeal erythema. No thyromegaly. CARDIOVASCULAR: S1 and S2 muffled PULMONARY: diminished breath sounds bilaterally with some mild expiratory wheezing noted. ABDOMEN: soft. Nontender on exam. non-distended, normoactive bowel sounds. No palpable organomegaly. MUSCULOSKELETAL: No joint swelling or deformity. EXTREMITIES: No cyanosis, clubbing, or pedal edema. Right foot noted with a wound VAC NEUROLOGICAL: Gross neurological examination did not reveal any focal deficits. SKIN: No rashes. Please refer to medication reconciliation sheet for a list of medications. The impression and plan of care has been dictated by Loyda Chang, Nurse Practitioner as directed. Dr. My MD I have performed a history and examination and MDM of this patient, discussed the same with the dictator, and agree with the dictator's assessment and plan as written ,documented as a scribe. Based on total visit time, I have performed more than 50% of the visit. Patient Condition at Discharge: Fair Plan - Discharge Summary Discharge Rx Participant: No New Discharge Prescriptions: New ceFAZolin [Kefzol] 2 gm IVP Q8HR #84 each Famotidine [Pepcid] 20 mg PO BID #60 tablet Sennosides [Senokot] 8.6 mg PO BID PRN #20 tab PRN Reason: Constipation Albuterol Nebulized [Ventolin Nebulized] 2.5 mg INHALATION RT-Q6H PRN 30 Days #90 each PRN Reason: Shortness Of Breath metroNIDAZOLE [Flagyl] 500 mg PO TID #90 tab Calcium Carbonate [Tums] 500 mg PO TID PRN PRN Reason: Heartburn HYDROcodone/APAP 5-325MG [[place] 5-325] 1 tab PO Q6HR PRN 3 Days #12 tab PRN Reason: Pain Continue Amitriptyline HCl [Elavil] 10 mg PO HS Loratadine [Claritin] 10 mg PO DAILY Acetaminophen Tab [Tylenol] 500 mg PO BID PRN PRN Reason: Pain Baclofen [Lioresal] 10 mg PO TID PRN PRN Reason: Muscle Pain INSULIN ASPART (NovoLOG) [NovoLOG (formulary)] 8 unit SQ AC-TID traZODone HCL 50 mg PO HS PRN PRN Reason: sleep Tiotropium 18 Mcg/Puff [Spiriva] 1 puff INHALATION RT-DAILY Budesonide/Formoterol Fumarate [Symbicort 160-4.5 Mcg Inhaler] 2 puff INHALATION RT-BID Sertraline [Zoloft] 100 mg PO DAILY Montelukast [Singulair] 10 mg PO DAILY Albuterol Sulfate [Ventolin HFA] 2 puff INHALATION RT-Q6H PRN PRN Reason: Shortness Of Breath Insulin Detemir (Levemir) [Levemir] 30 unit SQ HS Ondansetron Odt [Zofran ODT] 4 mg PO Q12HR PRN PRN Reason: Nausea Gabapentin [Neurontin] 100 mg PO DIRECTED Discontinued Naproxen 500 mg PO BID-W/MEALS PRN PRN Reason: Pain Sulfamethox-Tmp 800-160Mg [Bactrim DS 800-160 mg] 1 tab PO BID Discharge Medication List Amitriptyline HCl [Elavil] 10 mg PO HS 03/17/18 [History] Loratadine [Claritin] 10 mg PO DAILY 03/17/18 [History] Acetaminophen Tab [Tylenol] 500 mg PO BID PRN 07/25/21 [History] Albuterol Sulfate [Ventolin HFA] 2 puff INHALATION RT-Q6H PRN 07/25/21 [History] Baclofen [Lioresal] 10 mg PO TID PRN 07/25/21 [History] Budesonide/Formoterol Fumarate [Symbicort 160-4.5 Mcg Inhaler] 2 puff INHALATION RT-BID 07/25/21 [History] Gabapentin [Neurontin] 100 mg PO DIRECTED 07/25/21 [History] INSULIN ASPART (NovoLOG) [NovoLOG (formulary)] 8 unit SQ AC-TID 07/25/21 [History] Insulin Detemir (Levemir) [Levemir] 30 unit SQ HS 07/25/21 [History] Montelukast [Singulair] 10 mg PO DAILY 07/25/21 [History] Ondansetron Odt [Zofran ODT] 4 mg PO Q12HR PRN 07/25/21 [History] Sertraline [Zoloft] 100 mg PO DAILY 07/25/21 [History] Tiotropium 18 Mcg/Puff [Spiriva] 1 puff INHALATION RT-DAILY 07/25/21 [History] traZODone HCL 50 mg PO HS PRN 07/25/21 [History] Albuterol Nebulized [Ventolin Nebulized] 2.5 mg INHALATION RT-Q6H PRN 30 Days #90 each 08/02/21 [Rx] Calcium Carbonate [Tums] 500 mg PO TID PRN 08/02/21 [Rx] Famotidine [Pepcid] 20 mg PO BID #60 tablet 08/02/21 [Rx] HYDROcodone/APAP 5-325MG [[place] 5-325] 1 tab PO Q6HR PRN 3 Days #12 tab 08/02/21 [Rx] Sennosides [Senokot] 8.6 mg PO BID PRN #20 tab 08/02/21 [Rx] ceFAZolin [Kefzol] 2 gm IVP Q8HR #84 each 08/02/21 [Rx] metroNIDAZOLE [Flagyl] 500 mg PO TID #90 tab 08/02/21 [Rx] Follow up Appointment(s)/Referral(s): Yasmeen Parrish MD [Primary Care Provider] - 1-2 days (The office is closed please call and make follow up appointment.) [facility] [NON-STAFF] - 1 Week [facility], [NON-STAFF] - 1 Week [facility], [REFERRING] - 1 Week Lydia Fields MD [STAFF PHYSICIAN] - 10 Days (Diabetes doctor, shrinking 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 the office is closed please call and make follow up appointment.) Tristin Luu MD [STAFF PHYSICIAN] - 1 Week (dr luu wants to see the pt in the wound care clinic on thursday) Brett Perez MD [STAFF PHYSICIAN] - 1 Week (The office was closed please call and make follow up appointment.) Home Rodriguez MD [STAFF PHYSICIAN] - 1 Week (The office is closed please call and make follow up appointment for egd.) Patient Instructions/Handouts: Famotidine (By mouth), Hydrocodone/Acetaminophen (By mouth), Metronidazole (By mouth), Cefazolin (By injection), Senna (By mouth) Activity/Diet/Wound Care/Special Instructions: New glucometer was requested from [facility] and they will be sending it out to you. please bring your santal cream with you when you come to the wound care clinic. Activity Limited until follow-up Follow-up with primary care provider on discharge Follow-up at the wound care center with Dr. Perez in one week, call [phone] to make an appointment, please bring your santal cream with you when you come to the wound care clinic Follow-up with general surgery for test results May need follow-up with GI in the outpatient setting Continue taking medications as prescribed Continue to monitor blood sugars and keep a diary for primary care and also endocrinology follow-up Follow-up endocrinology outpatient Discharge Disposition: HOME WITH HOME HEALTH SERVICES
== END 2021-08-02 18:05 | disposition home health service (06) | DRG 264 ==
LOC: EC 19:23 → 5NMEDONC 07-26 00:53 → OBSVTOIN 07-26 13:11 → 5NMEDONC 07-31 19:20
PROVIDERS: ADMIT Hospitalist; ATTEND Hospitalist
PROC: 02HV33Z Insertion of Infusion Device into Superior Vena Cava, Percutaneous Approach (ICD-10-PCS; 2021-07-27)
PROC: 0JBQ0ZZ Excision of Right Foot Subcutaneous Tissue and Fascia, Open Approach (ICD-10-PCS; principal; 2021-07-27 14:30)
PROC: 0JBQ0ZZ Excision of Right Foot Subcutaneous Tissue and Fascia, Open Approach (ICD-10-PCS; 2021-07-30)
PROC: 0DJ08ZZ Inspection of Upper Intestinal Tract, Via Natural or Artificial Opening Endoscopic (ICD-10-PCS; 2021-08-01)
PROC: 0DJ08ZZ Inspection of Upper Intestinal Tract, Via Natural or Artificial Opening Endoscopic (ICD-10-PCS; 2021-08-01)
PROC: 05HC33Z Insertion of Infusion Device into Left Basilic Vein, Percutaneous Approach (ICD-10-PCS; 2021-08-02)
DX: E10.52 Type 1 diabetes mellitus with diabetic peripheral angiopathy with gangrene (principal); L03.115 Cellulitis of right lower limb; E10.43 Type 1 diabetes mellitus with diabetic autonomic (poly)neuropathy; E10.21 Type 1 diabetes mellitus with diabetic nephropathy; E10.319 Type 1 diabetes mellitus with unspecified diabetic retinopathy without macular edema; E10.628 Type 1 diabetes mellitus with other skin complications; E10.65 Type 1 diabetes mellitus with hyperglycemia; F31.9 Bipolar disorder, unspecified; F41.9 Anxiety disorder, unspecified; Z20.822 Contact with and (suspected) exposure to COVID-19; I10 Essential (primary) hypertension; K31.84 Gastroparesis; K29.70 Gastritis, unspecified, without bleeding; Z79.2 Long term (current) use of antibiotics; Z79.4 Long term (current) use of insulin; Z79.51 Long term (current) use of inhaled steroids; Z79.899 Other long term (current) drug therapy; Z83.3 Family history of diabetes mellitus; Z87.891 Personal history of nicotine dependence; Z96.41 Presence of insulin pump (external) (internal); Z88.0 Allergy status to penicillin; R13.10 Dysphagia, unspecified; B95.61 Methicillin susceptible Staphylococcus aureus infection as the cause of diseases classified elsewhere; J98.2 Interstitial emphysema
CPT/HCPCS: 36415; 36573; 43239; 71045; 74018; 74240; 80048; 80053; 80202; 81001; 82150; 82550; 82565; 83036; 83605; 83690; 83735; 85025; 85652; 86140; 87040; 87070; 87075; 87077; 87186; 87205; 87635; 88305; 94640; 94760; 96365; 96366; 96367; 96368; 96375; 96376; 99285

== ENCOUNTER 2022-04-07 22:26 | Emergency (ER) | payer OTHER ==
[2022-04-07 22:51] VITALS: BP 113/77; PULSE 94; RESP 15; TEMP 98.6
[2022-04-07] MEDS ORDERED: SULFAMETHOX-TMP 800-160MG 1 EACH TAB PO STA (23:29)
[2022-04-07] MEDS ORDERED: CEPHALEXIN 500 MG CAP PO STA (23:29)
[2022-04-07] MEDS ORDERED: NEOMYCIN-BACITRACIN-POLY OINT 1 APPLIC/EACH PACKET TOPICAL STA (23:30)
--- NOTE | 2022-04-07 23:36 | ED ---
General Adult HPI - General Chief complaint: Recheck/Abnormal Lab/Rx Stated complaint: left foot calus infected Time Seen by Provider: 04/07/22 23:22 Source: patient Mode of arrival: ambulatory Limitations: no limitations - History of Present Illness Initial comments: This 36-year-old male presents with a complaint of a wound to his left lower foot. He states that this is been present over the past couple of days. He has been applying peroxide without any relief. He has type 1 diabetes. He relates that he had a history of severe wound infection to his opposite foot this past year that took 5 months to heal, required surgery, and required multiple visits to the wound care clinic and infectious disease doctors. He is trying to avoid this by getting an early. He denies any fevers or chills. There is some mild pain. No significant drainage. No other complaints or modifying factors. - Related Data Home Medications Medication Instructions Recorded Confirmed Amitriptyline HCl [Elavil] 10 mg PO HS 03/17/18 07/25/21 Loratadine [Claritin] 10 mg PO DAILY 03/17/18 07/25/21 Acetaminophen Tab [Tylenol] 500 mg PO BID PRN 07/25/21 07/25/21 Albuterol Sulfate [Ventolin HFA] 2 puff INHALATION RT-Q6H PRN 07/25/21 07/25/21 Baclofen [Lioresal] 10 mg PO TID PRN 07/25/21 07/25/21 Budesonide/Formoterol Fumarate 2 puff INHALATION RT-BID 07/25/21 07/25/21 [Symbicort 160-4.5 Mcg Inhaler] Gabapentin [Neurontin] 100 mg PO DIRECTED 07/25/21 07/25/21 INSULIN ASPART (NovoLOG) [NovoLOG 8 unit SQ AC-TID 07/25/21 07/25/21 (formulary)] Insulin Detemir (Levemir) [Levemir] 30 unit SQ HS 07/25/21 07/25/21 Montelukast [Singulair] 10 mg PO DAILY 07/25/21 07/25/21 Ondansetron Odt [Zofran ODT] 4 mg PO Q12HR PRN 07/25/21 07/25/21 Sertraline [Zoloft] 100 mg PO DAILY 07/25/21 07/25/21 Tiotropium 18 Mcg/Puff [Spiriva] 1 puff INHALATION RT-DAILY 07/25/21 07/25/21 traZODone HCL 50 mg PO HS PRN 07/25/21 07/25/21 Previous Rx's Medication Instructions Recorded Albuterol Nebulized [Ventolin 2.5 mg INHALATION RT-Q6H PRN 30 08/02/21 Nebulized] Days #90 each Calcium Carbonate [Tums] 500 mg PO TID PRN 08/02/21 Famotidine [Pepcid] 20 mg PO BID #60 tablet 08/02/21 HYDROcodone/APAP 5-325MG [[place] 1 tab PO Q6HR PRN 3 Days #12 tab 08/02/21 5-325] Sennosides [Senokot] 8.6 mg PO BID PRN #20 tab 08/02/21 ceFAZolin [Kefzol] 2 gm IVP Q8HR #84 each 08/02/21 metroNIDAZOLE [Flagyl] 500 mg PO TID #90 tab 08/02/21 Cephalexin [Keflex] 500 mg PO Q8H #30 cap 04/07/22 Sulfamethox-Tmp 800-160Mg [Bactrim 1 tab PO Q12HR #20 tab 04/07/22 DS 800-160 mg] Allergies Allergy/AdvReac Type Severity Reaction Status Date / Time Penicillins Allergy Unknown Verified 04/07/22 22:48 Childhood Review of Systems ROS Statement: Those systems with pertinent positive or pertinent negative responses have been documented in the HPI. ROS Other: All systems not noted in ROS Statement are negative. Past Medical History Past Medical History: Diabetes Mellitus, Hypertension, Renal Disease Additional Past Medical History / Comment(s): Pt had recent upper respiratory infection and was on antibiotics/steroids for this, IDDM type I, past DKA about 1.5 yrs ago, neuropathy bilateral legs and runs up L side of body/L arm, hand and L side of face, L eye diabetic retinopathy, diabetic nephropathy-elevated urine protein, benign nasal polyp History of Any Multi-Drug Resistant Organisms: None Reported Past Surgical History: Tonsillectomy Additional Past Surgical History / Comment(s): Closed reduction nasal bone fracture with fixation septoplasty/open reduction L malary zygomatic arch fracture. Past Anesthesia/Blood Transfusion Reactions: No Reported Reaction Past Psychological History: Anxiety, Bipolar, Depression Smoking Status: Former smoker Past Alcohol Use History: None Reported Past Drug Use History: None Reported - Past Family History Father Family Medical History: No Reported History Additional Family Medical History / Comment(s): Father is healthy Mother Family Medical History: Diabetes Mellitus Additional Family Medical History / Comment(s): Gastric ulcer, one leg shorter, neuropathy involving arms. General Exam Limitations: no limitations General appearance: alert, in no apparent distress Extremities exam: Present: normal inspection, full ROM. Absent: pedal edema, joint swelling Neurological exam: Present: alert, oriented X3. Absent: motor sensory deficit Psychiatric exam: Present: normal affect, normal mood Skin exam: Present: other (There is a small skin ulcer noted to the lateral aspect of the distal left foot. There is no current drainage or associated erythema. There may be some minimal swelling.) Course Vital Signs 04/07/22 22:48 Temperature 98.6 F Pulse Rate 94 Respiratory 15 Rate Blood Pressure 113/77 O2 Sat by Pulse 100 Oximetry Medical Decision Making - Medical Decision Making The patient was seen and examined. It appears as though he has a minor ulcer to his left lower foot. In light of him being a type I diabetic, he is prescribed antibiotics. The wound is dressed. He'll be placed on Bactrim and Keflex. Close follow-up with primary care recommended. Close follow-up with the wound care clinic also recommended. Return parameters are discussed. He is to continue to maintain control of his blood sugar. Disposition Clinical Impression: Foot ulcer, Diabetic foot infection Disposition: HOME SELF-CARE Condition: Good Instructions (If sedation given, give patient instructions): Cellulitis (ED) Prescriptions: Sulfamethox-Tmp 800-160Mg [Bactrim DS 800-160 mg] 1 tab PO Q12HR #20 tab Cephalexin [Keflex] 500 mg PO Q8H #30 cap Is patient prescribed a controlled substance at d/c from ED?: No Referrals: None,Stated [Primary Care Provider] - 1-2 days Time of Disposition: 23:36
== END 2022-04-08 00:08 | disposition home or self-care (01) ==
LOC: EC 22:26
DX: E11.621 Type 2 diabetes mellitus with foot ulcer (principal); I10 Essential (primary) hypertension; Z88.0 Allergy status to penicillin; Z79.4 Long term (current) use of insulin; Z87.891 Personal history of nicotine dependence
CPT/HCPCS: 99283

== ENCOUNTER 2022-04-13 21:46 | Emergency (ER) | payer OTHER ==
[2022-04-13 21:51] VITALS: RESP 18; TEMP 97.3
[2022-04-13] MEDS ORDERED: SODIUM CHLORIDE 0.9% 1,000 ML IV STA (22:24)
--- NOTE | 2022-04-13 22:30 | ED ---
General Adult HPI - General Chief complaint: Recheck/Abnormal Lab/Rx Stated complaint: Recheck-L foot sore Time Seen by Provider: 04/13/22 22:19 Source: patient, RN notes reviewed Mode of arrival: ambulatory Limitations: no limitations - History of Present Illness Initial comments: This is a pleasant 31-year-old female who is A1. Patient had a medically induced 2 weeks ago and continues to have vaginal bleeding. Patient has had problems with lightheadedness and fatigue. Patient states she stood up and felt lightheaded. Patient then passed out. No injury. Patient states she is prone to syncopal episodes. Patient states whenever she is sick or is going through stress she is prone to passing out. Patient does have a clotting disorder but is denying any chest pain or shortness of breath. No extremity swelling. Patient states she is bleeding heavier than a normal menses on a daily basis. Patient believes her symptomatology is related to blood loss. Patient has history of MTHFR genetic mutation. Patient currently feels fatigued but is otherwise asymptomatic as I am speaking to her. No headache, no fever or chills, no changes in vision or hearing, no sore throat or difficulty with speech, no neck pain, no chest pain or shortness of breath, no abdominal pain, no nausea or vomiting, no changes in urination or bowel movements, no numbness or tingling, no extremity pain, no skin rashes or lesions. Past medical, surgical, social, and family history reviewed. - Related Data Home Medications Medication Instructions Recorded Confirmed Amitriptyline HCl [Elavil] 10 mg PO HS 03/17/18 07/25/21 Loratadine [Claritin] 10 mg PO DAILY 03/17/18 07/25/21 Acetaminophen Tab [Tylenol] 500 mg PO BID PRN 07/25/21 07/25/21 Albuterol Sulfate [Ventolin HFA] 2 puff INHALATION RT-Q6H PRN 07/25/21 07/25/21 Baclofen [Lioresal] 10 mg PO TID PRN 07/25/21 07/25/21 Budesonide/Formoterol Fumarate 2 puff INHALATION RT-BID 07/25/21 07/25/21 [Symbicort 160-4.5 Mcg Inhaler] Gabapentin [Neurontin] 100 mg PO DIRECTED 07/25/21 07/25/21 INSULIN ASPART (NovoLOG) [NovoLOG 8 unit SQ AC-TID 07/25/21 07/25/21 (formulary)] Insulin Detemir (Levemir) [Levemir] 30 unit SQ HS 07/25/21 07/25/21 Montelukast [Singulair] 10 mg PO DAILY 07/25/21 07/25/21 Ondansetron Odt [Zofran ODT] 4 mg PO Q12HR PRN 07/25/21 07/25/21 Sertraline [Zoloft] 100 mg PO DAILY 07/25/21 07/25/21 Tiotropium 18 Mcg/Puff [Spiriva] 1 puff INHALATION RT-DAILY 07/25/21 07/25/21 traZODone HCL 50 mg PO HS PRN 07/25/21 07/25/21 Previous Rx's Medication Instructions Recorded Albuterol Nebulized [Ventolin 2.5 mg INHALATION RT-Q6H PRN 30 08/02/21 Nebulized] Days #90 each Calcium Carbonate [Tums] 500 mg PO TID PRN 08/02/21 Famotidine [Pepcid] 20 mg PO BID #60 tablet 08/02/21 HYDROcodone/APAP 5-325MG [[place] 1 tab PO Q6HR PRN 3 Days #12 tab 08/02/21 5-325] Sennosides [Senokot] 8.6 mg PO BID PRN #20 tab 08/02/21 ceFAZolin [Kefzol] 2 gm IVP Q8HR #84 each 08/02/21 metroNIDAZOLE [Flagyl] 500 mg PO TID #90 tab 08/02/21 Cephalexin [Keflex] 500 mg PO Q8H #30 cap 04/07/22 Sulfamethox-Tmp 800-160Mg [Bactrim 1 tab PO Q12HR #20 tab 04/07/22 DS 800-160 mg] Ciprofloxacin HCl [Cipro] 750 mg PO BID 1 Days #28 tab 04/14/22 Clindamycin [Cleocin] 450 mg PO Q6H #126 capsule 04/14/22 Allergies Allergy/AdvReac Type Severity Reaction Status Date / Time Penicillins Allergy Unknown Verified 04/13/22 21:51 Childhood Review of Systems ROS Statement: Those systems with pertinent positive or pertinent negative responses have been documented in the HPI. ROS Other: All systems not noted in ROS Statement are negative. Past Medical History Past Medical History: Diabetes Mellitus, Hypertension, Renal Disease Additional Past Medical History / Comment(s): Pt had recent upper respiratory infection and was on antibiotics/steroids for this, IDDM type I, past DKA about 1.5 yrs ago, neuropathy bilateral legs and runs up L side of body/L arm, hand and L side of face, L eye diabetic retinopathy, diabetic nephropathy-elevated urine protein, benign nasal polyp History of Any Multi-Drug Resistant Organisms: None Reported Past Surgical History: Tonsillectomy Additional Past Surgical History / Comment(s): Closed reduction nasal bone fracture with fixation septoplasty/open reduction L malary zygomatic arch fr acture. Past Anesthesia/Blood Transfusion Reactions: No Reported Reaction Past Psychological History: Anxiety, Bipolar, Depression Smoking Status: Former smoker Past Alcohol Use History: None Reported Past Drug Use History: None Reported - Past Family History Father Family Medical History: No Reported History Additional Family Medical History / Comment(s): Father is healthy Mother Family Medical History: Diabetes Mellitus Additional Family Medical History / Comment(s): Gastric ulcer, one leg shorter, neuropathy involving arms. General Exam - General Exam Comments Initial Comments: Patient does not appear to be ill or toxic. Vital signs reviewed. Capillary refill less than 2 seconds. Limitations: no limitations General appearance: alert, in no apparent distress Head exam: Present: atraumatic, normocephalic, normal inspection Eye exam: Present: normal appearance, PERRL, EOMI. Absent: scleral icterus, conjunctival injection, periorbital swelling ENT exam: Present: normal exam, normal oropharynx, mucous membranes moist, normal external ear exam. Absent: mucous membranes dry Neck exam: Present: normal inspection, full ROM. Absent: tenderness, meningismus, lymphadenopathy Respiratory exam: Present: normal lung sounds bilaterally. Absent: respiratory distress, wheezes, rales, rhonchi, stridor Cardiovascular Exam: Present: regular rate, normal rhythm, normal heart sounds. Absent: systolic murmur, diastolic murmur, rubs, gallop, clicks GI/Abdominal exam: Present: soft, normal bowel sounds. Absent: distended, tenderness, guarding, rebound, rigid Extremities exam: Present: full ROM, normal capillary refill, other (Erythema to the dorsum of the left foot extending just proximal to the MTP joints on the lateral foot. Ulceration noted to the plantar aspect. No definitive foreign body.). Absent: normal inspection (Pedal pulses 2+ out of 4. Capillary refill less than 2 seconds.), tenderness, pedal edema, joint swelling, calf tenderness Back exam: Present: normal inspection Neurological exam: Present: alert, oriented X3, CN II-XII intact Psychiatric exam: Present: normal affect, normal mood Skin exam: Present: warm, dry, intact, normal color. Absent: rash Course Vital Signs 04/13/22 21:48 Temperature 97.3 F L Pulse Rate 102 H Respiratory 18 Rate Blood Pressure 111/71 O2 Sat by Pulse 97 Oximetry - Reevaluation(s) Reevaluation #1: 04/14/22 00:50 Medical record is reviewed Symptoms essentially unchanged Patient is informed of results and questions answered Patient in no distress Medical Decision Making - Medical Decision Making Was pt. sent in by a medical professional or institution? @ -[no] Did you speak to anyone other than the patient for history? @ -[no] Did you review nursing and triage notes? @ -[agree] Were old charts reviewed? @ -[Previous documentation] Differential Diagnosis? @ -[Cellulitis, diabetic foot infection, sepsis, foreign body with secondary infection, osteomyelitis, this is not an all inclusive list] X-rays interpreted by me (1pt min.)? @ -[Interpreted independently by me. Soft tissue swelling, no foreign body, no bony destruction] Did you discuss the management of the patient with other professionals? @ -[ED attending physician] Was smoking cessation discussed for >3mins.? @ -[I discussed smoking cessation for greater than 3 minutes. The risk of smoking were discussed with the patient including but not limited to risks of cancer, stroke, coronary artery disease and COPD. Also discussed with patient were multiple methods of quitting smoking. Lastly we discussed the financial cost of smoking.] What co-morbidities impacted this encounter? (DM, HTN, Smoking, COPD, CAD, Cancer, CVA, Hep., AIDS, mental health diagnosis, sleep apnea, morbid obesity)? @ -[DM, HTN, Smoking, Was patient admitted / discharged? @ -Patient was discharged. Patient had no evidence of osteomyelitis. Mild elevations of the CRP and ESR. No fever or elevated white blood cell count. Discussed the case in detail with ED attending physician. Discussed all findings with the patient. Patient was discharged to shared decision-making. The patient follow-up with his infectious disease doctor. He is to call in the morning. Strict return parameters discussed. Undiagnosed new problem with uncertain prognosis? @ -[none] Diagnosis/symptom? @ -Diabetic foot infection, cellulitis, hyperglycemia Acute, or Chronic, or Acute on Chronic? @ -Acute Uncomplicated (without systemic symptoms) or Complicated (systemic symptoms)? @ -Complicated by history of diabetes Side effects of treatment? @ -[none] Exacerbation, Progression, or Severe Exacerbation] @ -[no] Poses a threat to life or bodily function? @ -Unlikely The case was discussed in detail with ED attending physician. Presentation, findings, treatment plan discussed in detail. Supervising physician Dr. Vega - Lab Data Result diagrams: 04/13/22 22:45 04/13/22 22:45 Lab Results 04/13/22 04/13/22 Range/Units 22:45 22:45 WBC 8.4 (3.8-10.6) k/uL RBC 4.02 L (4.30-5.90) m/uL Hgb 12.9 L (13.0-17.5) gm/dL Hct 37.1 L (39.0-53.0) % MCV 92.3 (80.0-100.0) fL MCH 32.1 (25.0-35.0) pg MCHC 34.7 (31.0-37.0) g/dL RDW 12.1 (11.5-15.5) % Plt Count 252 (150-450) k/uL MPV 10.1 Neutrophils % 68 % Lymphocytes % 18 % Monocytes % 4 % Eosinophils % 7 % Basophils % 1 % Neutrophils # 5.7 (1.3-7.7) k/uL Lymphocytes # 1.5 (1.0-4.8) k/uL Monocytes # 0.3 (0-1.0) k/uL Eosinophils # 0.6 (0-0.7) k/uL Basophils # 0.1 (0-0.2) k/uL ESR 35 H (0-15) mm/hr Sodium 135 L (137-145) mmol/L Potassium 4.9 (3.5-5.1) mmol/L Chloride 100 (98-107) mmol/L Carbon Dioxide 28 (22-30) mmol/L Anion Gap 7 mmol/L BUN 12 (9-20) mg/dL Creatinine 0.88 (0.66-1.25) mg/dL Est GFR (CKD-EPI)AfAm >90 (>60 ml/min/1.73 sqM) Est GFR (CKD-EPI)NonAf >90 (>60 ml/min/1.73 sqM) Glucose 328 H (74-99) mg/dL Calcium 8.6 (8.4-10.2) mg/dL Total Bilirubin 0.3 (0.2-1.3) mg/dL AST 19 (17-59) U/L ALT 12 (4-49) U/L Alkaline Phosphatase 93 (38-126) U/L C-Reactive Protein 4.3 H (<1.0) mg/dL Total Protein 7.0 (6.3-8.2) g/dL Albumin 3.8 (3.5-5.0) g/dL - Radiology Data Radiology results: report reviewed (Independent evaluation of the plain film x- ray by me shows soft tissue swelling, ulceration, no bony destruction. Reviewed the radiology interpretation), image reviewed Disposition Clinical Impression: Diabetic infection of left foot, Cellulitis of left foot, Hyperglycemia due to type 1 diabetes mellitus Disposition: HOME SELF-CARE Condition: Good Instructions (If sedation given, give patient instructions): Cellulitis (ED), Diabetic Foot Ulcers (ED), Diabetic Hyperglycemia (ED) Additional Instructions: Stop the Bactrim and Keflex. Start ciprofloxacin and clindamycin. Call 8 AM to set up a follow-up appointment with Dr. Gonzalez. Follow-up with your regular physician as directed. Return to the ER immediately if any symptoms worsen, new symptoms arise, or any other problems develop. Elevate your foot as much as possible. Monitor your blood sugars closely. Prescriptions: Ciprofloxacin HCl [Cipro] 750 mg PO BID 1 Days #28 tab Clindamycin [Cleocin] 450 mg PO Q6H #126 capsule Is patient prescribed a controlled substance at d/c from ED?: No Referrals: Marcello Starkey MD [Primary Care Provider] - 1-2 days Brett Gonzalez MD [STAFF PHYSICIAN] - 1-2 days Time of Disposition: 00:49
[2022-04-13] MEDS ORDERED: CLINDAMYCIN 900 MG in DEXTROSE 5% IN WATER 50 ML IVPB ONE ×2 (22:45)
[2022-04-13 23:02] LABS: Basophils # (A) 0.1 k/uL (0-0.2); Basophils % (A) 1 %; Eosinophils # (A) 0.6 k/uL (0-0.7); Eosinophils % (A) 7 %; HCT 37.1 % (39.0-53.0); HGB 12.9 gm/dL (13.0-17.5); Lymphocytes # (A) 1.5 k/uL (1.0-4.8); Lymphocytes % (A) 18 %; MCH 32.1 pg (25.0-35.0); MCHC 34.7 g/dL (31.0-37.0); MCV 92.3 fL (80.0-100.0); Mean Platelet Volume 10.1; Monocytes # (A) 0.3 k/uL (0-1.0); Monocytes % (A) 4 %; Neutrophils # (A) 5.7 k/uL (1.3-7.7); Neutrophils % (A) 68 %; Platelet Count 252 k/uL (150-450); RBC 4.02 m/uL (4.30-5.90); RDW 12.1 % (11.5-15.5); WBC 8.4 k/uL (3.8-10.6)
--- NOTE | 2022-04-13 23:31 | XR ---
EXAMINATION TYPE: XR foot complete LT DATE OF EXAM: 04/13/2022 COMPARISON: NONE HISTORY: Foot infection TECHNIQUE: 3 views FINDINGS: There is some soft tissue swelling lateral to the fifth MP joint. There are small ulcer def ect in the skin surface. There is no fracture nor dislocation. No focal bone destruction. Metatarsals are intact. The toes are intact. There is mild vascular calcification. IMPRESSION: Soft tissue swelling and small ulcer defect. No fracture. No focal bone destruction.
[2022-04-13 23:34] LABS: ALT 12 U/L (4-49); AST 19 U/L (17-59); African American GFR (CKD) >90 (>60 ml/min/1.73 sqM); Albumin 3.8 g/dL (3.5-5.0); Alkaline Phosphatase 93 U/L (38-126); Anion Gap 7 mmol/L; Blood Urea Nitrogen 12 mg/dL (9-20); Calcium 8.6 mg/dL (8.4-10.2); Carbon Dioxide 28 mmol/L (22-30); Chloride 100 mmol/L (98-107); Glucose 328 mg/dL (74-99); Non-African American GFR(CKD) >90 (>60 ml/min/1.73 sqM); Potassium 4.9 mmol/L (3.5-5.1); Sodium 135 mmol/L (137-145); Total Bilirubin 0.3 mg/dL (0.2-1.3)
[2022-04-13 23:40] LABS: Erythrocyte Sedimentation Rate 35 mm/hr (0-15)
[2022-04-13 23:54] LABS: C Reactive Protein 4.3 mg/dL (<1.0)
[2022-04-14] MEDS ORDERED: LEVOFLOXACIN 750 MG TAB PO STA (00:46)
[2022-04-14 01:21] VITALS: BP 112/74; PULSE 93
== END 2022-04-14 01:21 | disposition home or self-care (01) ==
LOC: EC 21:46
DX: L03.116 Cellulitis of left lower limb (principal); E10.65 Type 1 diabetes mellitus with hyperglycemia; I12.9 Hypertensive chronic kidney disease with stage 1 through stage 4 chronic kidney disease, or unspecified chronic kidney disease; N18.9 Chronic kidney disease, unspecified; F41.9 Anxiety disorder, unspecified; F32.A Depression, unspecified; Z87.891 Personal history of nicotine dependence; Z79.4 Long term (current) use of insulin; Z79.899 Other long term (current) drug therapy; Z88.0 Allergy status to penicillin
CPT/HCPCS: 36415; 80053; 85025; 85652; 86140; 96361; 96365; 96366; 99283

== ENCOUNTER 2022-06-19 09:28 | Inpatient (IN) | payer OTHER ==
[2022-06-19] MEDS ORDERED: KETOROLAC 15 MG/ML 1 ML VIAL IVP STA (10:07)
--- NOTE | 2022-06-19 10:14 | ED ---
Extremity Problem HPI - General Chief complaint: Extremity Problem,Nontraumatic Stated complaint: Lt foot pain Time Seen by Provider: 06/19/22 09:44 Source: patient, RN notes reviewed Mode of arrival: ambulatory Limitations: no limitations - History of Present Illness Initial comments: This is a 36-year-old male with a PMHx of DM, HTN, and renal disease who presents to the emergency department for concerns of a left foot infection. States that he had problems with localized tenderness and redness to the left foot in March 2022, however it did not spread. Over the last couple of days, he has developed an open wound just underneath the left pinky toe that is going all the way through the foot with purulent drainage. States that he is also hav ing redness to the whole foot going up the leg and has also felt a large lump in his left thigh. This happened in July 2021 and he ended up having his right pinky toe amputated. States that at this point he is unable to walk on the foot. He feels hot and cold but has not measured any fevers. Denies any fevers, sore throat, cough, dyspnea, chest pain, palpitations, abdominal pain, nausea, vomiting, diarrhea, back pain, or headaches. MD Complaint: extremity pain, extremity swelling Location: left, lower extremity Worsens with: weight bearing, palpation - Related Data Home Medications Medication Instructions Recorded Confirmed Amitriptyline HCl [Elavil] 10 mg PO HS 03/17/18 06/19/22 Loratadine [Claritin] 10 mg PO DAILY 03/17/18 06/19/22 Albuterol Sulfate [Ventolin HFA] 2 puff INHALATION RT-Q6H PRN 07/25/21 06/19/22 Insulin Detemir (Levemir) [Levemir] 30 unit SQ HS 07/25/21 06/19/22 Montelukast [Singulair] 10 mg PO DAILY 07/25/21 06/19/22 Ondansetron Odt [Zofran ODT] 4 mg PO DAILY 07/25/21 06/19/22 Sertraline [Zoloft] 100 mg PO DAILY 07/25/21 06/19/22 Cholecalciferol [Vitamin D3 (125 125 mcg PO DAILY 06/19/22 06/19/22 Mcg = 5000 Iu)] Fluticasone Propion/Salmeterol 2 puff INHALATION RT-BID 06/19/22 06/19/22 [Advair Hfa 45-21 Mcg Inhaler] Gabapentin [Neurontin] 800 mg PO TID 06/19/22 06/19/22 Ibuprofen [Motrin] 800 mg PO Q8H PRN 06/19/22 06/19/22 Insulin Aspart (For Pump) [NovoLOG 0.01 unit SQ-PUMP CONTINUOUS 06/19/22 06/19/22 (For Pump)] Losartan [Cozaar] 12.5 mg PO DAILY 06/19/22 06/19/22 Metoclopramide [Reglan] 5 mg PO BID 06/19/22 06/19/22 traZODone HCL [Desyrel] 100 mg PO HS 06/19/22 06/19/22 Previous Rx's Medication Instructions Recorded Famotidine [Pepcid] 20 mg PO BID #60 tablet 08/02/21 Allergies Allergy/AdvReac Type Severity Reaction Status Date / Time Penicillins Allergy Unknown Verified 06/19/22 11:18 Childhood Review of Systems ROS Statement: Those systems with pertinent positive or pertinent negative responses have been documented in the HPI. ROS Other: All systems not noted in ROS Statement are negative. Past Medical History Past Medical History: Diabetes Mellitus, Hypertension, Renal Disease Additional Past Medical History / Comment(s): Pt had recent upper respiratory infection and was on antibiotics/steroids for this, IDDM type I, past DKA about 1.5 yrs ago, neuropathy bilateral legs and runs up L side of body/L arm, hand and L side of face, L eye diabetic retinopathy, diabetic nephropathy-elevated urine protein, benign nasal polyp History of Any Multi-Drug Resistant Organisms: None Reported Past Surgical History: Tonsillectomy Additional Past Surgical History / Comment(s): Closed reduction nasal bone fracture with fixation septoplasty/open reduction L malary zygomatic arch fracture. Past Anesthesia/Blood Transfusion Reactions: No Reported Reaction Past Psychological History: Anxiety, Bipolar, Depression Smoking Status: Former smoker Past Alcohol Use History: None Reported Past Drug Use History: None Reported - Past Family History Father Family Medical History: No Reported History Additional Family Medical History / Comment(s): Father is healthy Mother Family Medical History: Diabetes Mellitus Additional Family Medical History / Comment(s): Gastric ulcer, one leg shorter, neuropathy involving arms. General Exam Limitations: no limitations General appearance: alert, in no apparent distress Head exam: Present: atraumatic, normocephalic, normal inspection Respiratory exam: Present: normal lung sounds bilaterally. Absent: respiratory distress, wheezes, rales, rhonchi, stridor Cardiovascular Exam: Present: regular rate, normal rhythm, normal heart sounds. Absent: systolic murmur, diastolic murmur, rubs, gallop, clicks Extremities exam: Present: other (Significant swelling, heat, erythema, and tenderness around the left pinky toe and spreading proximally. There is an open wound to the top of the left foot going all the way through to the bottom of the left foot with purulent drainage. Erythema is covering most of the top of the left foot.) Neurological exam: Present: alert, oriented X3, CN II-XII intact Psychiatric exam: Present: normal affect, normal mood Course Vital Signs 06/19/22 06/19/22 06/19/22 09:40 11:17 14:00 Temperature 98.2 F 98.2 F Pulse Rate 92 88 86 Respiratory 20 16 16 Rate Blood Pressure 101/65 110/61 110/60 O2 Sat by Pulse 97 97 98 Oximetry 06/19/22 06/19/22 15:15 15:19 Temperature Pulse Rate 86 86 Respiratory 16 16 Rate Blood Pressure 93/58 93/58 O2 Sat by Pulse 95 95 Oximetry Medical Decision Making - Medical Decision Making This is a 36-year-old male who presents to the emergency department for a left foot infection. Was pt. sent in by a medical professional or institution? @ -No Did you speak to anyone other than the patient for history? @ -No Did you review nursing and triage notes? @ -Yes, and I agree, it is accurate with regards to the patient's symptoms. Were old charts reviewed? @ -Yes, admission records from 07/25/21-08/02/21. Differential Diagnosis? @ -Differential Erythema/Swelling of Foot: Cellulitis, abscess, osteomyelitis, gout, this is not meant to be an all- inclusive list. X-rays interpreted by me (1pt min.)? @ -X-ray of the left foot obtained. My interpretation reveals swelling in the left fifth metacarpal head and a plantar ulceration. What testing was considered but not performed? (CT, X-rays, U/S, labs)? Why? @ -None What meds were considered but not given? Why? @ -None Did you discuss the management of the patient with other professionals? @ -Yes, Dr. Fraser with [facility] who accepts the patient for admission and requests consult for ID and vascular surgery. Did you reconcile home meds? @ -Yes Was smoking cessation discussed for >3mins.? @ -No Was critical care preformed (if so, how long)? @ -No Were there social determinants of health that impacted care today? How? (Homelessness, low income, unemployed, alcoholism, drug addiction, transportation, low edu. Level, literacy, decrease access to med. care, [facility], rehab)? @ -No Was there de-escalation of care discussed even if they declined? (Discuss DNR or withdrawal of care, Hospice)? @ -No What co-morbidities impacted this encounter? (DM, HTN, Smoking, COPD, CAD, Cancer, CVA, Hep., AIDS, mental health diagnosis, sleep apnea, morbid obesity)? @ -DM. HTN, renal disease. Was patient admitted / discharged? @ -Admitted. Lab work obtained revealing leukocytosis and elevated inflammatory markers. X-ray cannot exclude an early osteomyelitis. Given these findings and the infection last year that was very similar and subsequently required amputation of the right fifth digit, will admit patient for IV antibiotics and further management. Patient started on IV vancomycin and cefepime with blood and wound cultures obtained prior. Consults placed for infectious disease and vascular surgery. Undiagnosed new problem with uncertain prognosis? @ -None Drug Therapy requiring intensive monitoring for toxicity (Heparin, Nitro, Insulin, Cardizem)? @ -None Were any procedures done? @ -None Diagnosis/symptom? @ -Left diabetic foot infection Acute, or Chronic, or Acute on Chronic? @ -Acute Uncomplicated (without systemic symptoms) or Complicated (systemic symptoms)? @ -Complicated Side effects of treatment? @ -None Exacerbation, Progression, or Severe Exacerbation] @ -Progression Poses a threat to life or bodily function? @ -Yes Return precautions reviewed in depth, the patient is instructed to return to the emergency department with any new, worsening, or concerning symptoms. Patient verbalized understanding. This case was discussed in detail with the attending ED physician, Dr. Penaloza. Presentation, findings, and treatment plan discussed in detail as well. - Lab Data Result diagrams: 06/19/22 10:34 06/19/22 10:34 Lab Results 06/19/22 06/19/22 06/19/22 Range/Units 10:34 10:34 10:34 WBC 13.0 H (3.8-10.6) k/uL RBC 3.94 L (4.30-5.90) m/uL Hgb 11.9 L (13.0-17.5) gm/dL Hct 35.8 L (39.0-53.0) % MCV 90.8 (80.0-100.0) fL MCH 30.2 (25.0-35.0) pg MCHC 33.3 (31.0-37.0) g/dL RDW 12.0 (11.5-15.5) % Plt Count 386 (150-450) k/uL MPV 8.8 Neutrophils % 73 % Lymphocytes % 13 % Monocytes % 8 % Eosinophils % 5 % Basophils % 1 % Neutrophils # 9.5 H (1.3-7.7) k/uL Lymphocytes # 1.7 (1.0-4.8) k/uL Monocytes # 1.0 (0-1.0) k/uL Eosinophils # 0.6 (0-0.7) k/uL Basophils # 0.1 (0-0.2) k/uL ESR 91 H (0-15) mm/hr Sodium 134 L (137-145) mmol/L Potassium 4.4 (3.5-5.1) mmol/L Chloride 96 L (98-107) mmol/L Carbon Dioxide 32 H (22-30) mmol/L Anion Gap 6 mmol/L BUN 10 (9-20) mg/dL Creatinine 0.71 (0.66-1.25) mg/dL Est GFR (CKD-EPI)AfAm >90 (>60 ml/min/1.73 sqM) Est GFR (CKD-EPI)NonAf >90 (>60 ml/min/1.73 sqM) Glucose 311 H (74-99) mg/dL Plasma Lactic Acid Sanjay 1.0 (0.7-2.0) mmol/L Calcium 8.4 (8.4-10.2) mg/dL Total Bilirubin 0.6 (0.2-1.3) mg/dL AST 13 L (17-59) U/L ALT 11 (4-49) U/L Alkaline Phosphatase 100 (38-126) U/L C-Reactive Protein 15.2 H (<1.0) mg/dL Total Protein 7.5 (6.3-8.2) g/dL Albumin 3.6 (3.5-5.0) g/dL - Radiology Data Radiology results: report reviewed, image reviewed Disposition Clinical Impression: Diabetic infection of left foot Disposition: ADMITTED IP TO THIS HOSP
[2022-06-19 10:43] LABS: Basophils # (A) 0.1 k/uL (0-0.2); Basophils % (A) 1 %; Eosinophils # (A) 0.6 k/uL (0-0.7); Eosinophils % (A) 5 %; HCT 35.8 % (39.0-53.0); HGB 11.9 gm/dL (13.0-17.5); Lymphocytes # (A) 1.7 k/uL (1.0-4.8); Lymphocytes % (A) 13 %; MCH 30.2 pg (25.0-35.0); MCHC 33.3 g/dL (31.0-37.0); MCV 90.8 fL (80.0-100.0); Mean Platelet Volume 8.8; Monocytes % (A) 8 %; Neutrophils # (A) 9.5 k/uL (1.3-7.7); Neutrophils % (A) 73 %; Platelet Count 386 k/uL (150-450); RBC 3.94 m/uL (4.30-5.90)
--- NOTE | 2022-06-19 11:01 | XR ---
EXAMINATION TYPE: XR foot complete LT DATE OF EXAM: 06/19/2022 CLINICAL HISTORY: Pain and swelling over fifth toe TECHNIQUE: Frontal, lateral, and oblique images of the left foot are obtained. COMPARISON: Prior left foot x-ray April 13, 2022 FINDINGS: Focal soft tissue prominence and/or swallowing near the fifth metatarsal head is redemonstr ated. Soft tissue ulceration on oblique image is again seen and larger in size. There is less well-vi sualized cortex or subtle lucency on the frontal view along the lateral aspect of the metatarsal head , this does not reproduce on oblique image. Early acute osteomyelitis cannot be excluded. Remainder o f left foot is unremarkable. IMPRESSION: As above. Consider 3 phase bone scan follow-up to further evaluate.
[2022-06-19 11:03] LABS: ALT 11 U/L (4-49); AST 13 U/L (17-59); African American GFR (CKD) >90 (>60 ml/min/1.73 sqM); Albumin 3.6 g/dL (3.5-5.0); Alkaline Phosphatase 100 U/L (38-126); Anion Gap 6 mmol/L; Blood Urea Nitrogen 10 mg/dL (9-20); Calcium 8.4 mg/dL (8.4-10.2); Carbon Dioxide 32 mmol/L (22-30); Chloride 96 mmol/L (98-107); Glucose 311 mg/dL (74-99); Non-African American GFR(CKD) >90 (>60 ml/min/1.73 sqM); Potassium 4.4 mmol/L (3.5-5.1); Sodium 134 mmol/L (137-145); Total Bilirubin 0.6 mg/dL (0.2-1.3); Total Protein 7.5 g/dL (6.3-8.2)
[2022-06-19 11:22] LABS: C Reactive Protein 15.2 mg/dL (<1.0)
[2022-06-19] MEDS ORDERED: HYDROmorphone 0.5 MG/0.5 ML SYRINGE IVP STA (11:24)
[2022-06-19] MEDS ORDERED: VANCOMYCIN IV PER PHARMACY 1 EACH MISC MISCELLANE SCH (11:30)
[2022-06-19] MEDS ORDERED: VANCOMYCIN 1,250 MG in SODIUM CHLORIDE 0.9% 250 ML IVPB STA (11:33)
[2022-06-19] MEDS: CEFEPIME 2 GM in SODIUM CHLORIDE 0.9% 100 ML IVPB SCH ×2 (11:48→23:28)
[2022-06-19] MEDS ORDERED: NALOXONE 0.4 MG/ML 1 ML VIAL IV PRN (12:18)
[2022-06-19] MEDS ORDERED: ACETAMINOPHEN TAB 325 MG TAB PO PRN (12:18)
[2022-06-19] MEDS ORDERED: HYDROmorphone 0.5 MG/0.5 ML SYRINGE IVP PRN (12:18)
[2022-06-19] MEDS ORDERED: KETOROLAC 15 MG/ML 1 ML VIAL IVP PRN (12:18)
--- NOTE | 2022-06-19 13:11 | CT ---
EXAMINATION TYPE: CT foot LT w con DATE OF EXAM: 06/19/2022 COMPARISON: Left foot x-ray earlier today HISTORY: Left foot diabetic foot infection with focal pain and swelling near fifth toe CT DLP: 68.6 mGycm Automated exposure control for dose reduction was used. CONTRAST: Performed with IV Contrast, patient injected with 100 ml mL of Isovue 300. FINDINGS: Focal moderate to severe diffuse subcutaneous edema and soft tissue swelling in the region of the fif th metatarsal head is confirmed on contrast enhanced CT. No suspicious bony destruction. Heterogeneou s enhancing tissue is seen consistent with soft tissue infection and/or cellulitis. No well-formed th ick walled drainable fluid collection or abscess noted. Skin ulceration along the plantar surface is seen axial image 72. IMPRESSION: As above. Advise further investigation with 3 phase bone scan and/or MRI if there is conc thor for acute osteomyelitis.
[2022-06-19 14:31] LABS: Erythrocyte Sedimentation Rate 91 mm/hr (0-15)
[2022-06-19] MEDS: Insulin Aspart (For Pump) 100 UNIT/ML VIAL SQ-PUMP SCH (15:49)
[2022-06-19] MEDS: GABAPENTIN 400 MG CAP PO SCH ×2 (16:33→21:54)
[2022-06-19] MEDS: HYDROmorphone 1 MG/ML 1 ML SYRINGE IVP PRN ×3 (16:34→23:27)
[2022-06-19 16:39] LABS: Glucose,Whole Blood 201 mg/dL (70-110)
[2022-06-19] MEDS: VANCOMYCIN 1,250 MG in SODIUM CHLORIDE 0.9% 250 ML IVPB SCH (20:36)
[2022-06-19 20:37] LABS: Glucose,Whole Blood 126 mg/dL (70-110)
[2022-06-19] MEDS: SYMBICORT 80-4.5 MCG INHALER INHALATION SCH (20:51)
[2022-06-19] MEDS: ALBUTEROL HFA INHALER INHALATION PRN (20:51)
--- NOTE | 2022-06-19 21:47 | P.CONS ---
History of Present Illness - Reason for Consult Consult date: 06/19/22 Left diabetic foot infection Requesting physician: Meme Sims - Chief Complaint Left foot pain swelling redness x days - History of Present Illness Patient is a 36-year-old male with a past medical history significant for diabetes mellitus in this patient who did have a history of diabetic foot infection involving his right foot with an abscess and requiring extensive surgical debridement and drainage the patient right foot is currently healed patient now presenting to the hospital with left foot swelling and redness that apparently has been going on since the summer 2021 patient has been evaluated at [facility] ER x2 and apparently has been treated with an oral antibiotic and has been also evaluated by his primary care physician for the patient was treated with oral antibiotic patient now presenting to the hospital with worsening swelling redness and pain to the left foot and especially the left fifth toe patient denies any history of any trauma has been complaining of pain mostly sharp 6-7 out of 10 no radiation with associated swelling redness and did have small open area that has been draining pus with the symptoms the patient wa s evaluated on arrival to the ER the patient was afebrile and no fever has been recorded subsequently patient did have white count of 13,000 with a left shift kidney function has been normal liver exams are normal patient did have a x-ray of the foot focal soft tissue prominence swelling any of the fifth metatarsal head soft tissue ulceration no foreign body patient did have local cultures obtained which are currently pending patient was started on vancomycin and cefepime because of his penicillin allergy infectious disease was consulted for further management of antibiotic therapy Review of Systems Positive point has been mentioned in the HPI rest of the systems are negative Past Medical History Past Medical History: Diabetes Mellitus, Hypertension, Renal Disease Additional Past Medical History / Comment(s): Pt had recent upper respiratory infection and was on antibiotics/steroids for this, IDDM type I, past DKA about 1.5 yrs ago, neuropathy bilateral legs and runs up L side of body/L arm, hand and L side of face, L eye diabetic retinopathy, diabetic nephropathy-elevated urine protein, benign nasal polyp History of Any Multi-Drug Resistant Organisms: None Reported Past Surgical History: Tonsillectomy Additional Past Surgical History / Comment(s): Closed reduction nasal bone fracture with fixation septoplasty/open reduction L malary zygomatic arch fracture. Past Anesthesia/Blood Transfusion Reactions: No Reported Reaction Past Psychological History: Anxiety, Bipolar, Depression Smoking Status: Former smoker Past Alcohol Use History: None Reported Past Drug Use History: None Reported - Past Family History Father Family Medical History: No Reported History Additional Family Medical History / Comment(s): Father is healthy Mother Family Medical History: Diabetes Mellitus Additional Family Medical History / Comment(s): Gastric ulcer, one leg shorter, neuropathy involving arms. Medications and Allergies Home Medications Medication Instructions Recorded Confirmed Type Amitriptyline HCl [Elavil] 10 mg PO HS 03/17/18 06/19/22 History Loratadine [Claritin] 10 mg PO DAILY 03/17/18 06/19/22 History Albuterol Sulfate [Ventolin HFA] 2 puff INHALATION RT-Q6H PRN 07/25/21 06/19/22 History Insulin Detemir (Levemir) [Levemir] 30 unit SQ HS 07/25/21 06/19/22 History Montelukast [Singulair] 10 mg PO DAILY 07/25/21 06/19/22 History Ondansetron Odt [Zofran ODT] 4 mg PO DAILY 07/25/21 06/19/22 History Sertraline [Zoloft] 100 mg PO DAILY 07/25/21 06/19/22 History Famotidine [Pepcid] 20 mg PO BID #60 tablet 08/02/21 06/19/22 Rx Cholecalciferol [Vitamin D3 (125 125 mcg PO DAILY 06/19/22 06/19/22 History Mcg = 5000 Iu)] Fluticasone Propion/Salmeterol 2 puff INHALATION RT-BID 06/19/22 06/19/22 History [Advair Hfa 45-21 Mcg Inhaler] Gabapentin [Neurontin] 800 mg PO TID 06/19/22 06/19/22 History Ibuprofen [Motrin] 800 mg PO Q8H PRN 06/19/22 06/19/22 History Insulin Aspart (For Pump) [NovoLOG 0.01 unit SQ-PUMP CONTINUOUS 06/19/22 06/19/22 History (For Pump)] Losartan [Cozaar] 12.5 mg PO DAILY 06/19/22 06/19/22 History traZODone HCL [Desyrel] 100 mg PO HS 06/19/22 06/19/22 History Acetaminophen Tab [Tylenol] 650 mg PO Q6HR PRN tab 06/24/22 Rx Collagenase [Santyl Ointment] 1 applic TOPICAL DAILY 30 Days #1 06/24/22 Rx each HYDROcodone/APAP 5-325MG [[place] 1 each PO Q6HR PRN #12 tab 06/24/22 Rx 5-325] Metoclopramide [Reglan] 5 mg PO BID #30 tab 06/24/22 Rx metroNIDAZOLE [Flagyl] 500 mg PO TID 42 Days #126 tab 06/24/22 Rx Allergies Allergy/AdvReac Type Severity Reaction Status Date / Time Penicillins Allergy Unknown Verified 06/19/22 11:18 Childhood Physical Exam Vitals: Vital Signs Temp Pulse Resp BP Pulse Ox 06/19/22 11:17 98.2 F 88 16 110/61 97 06/19/22 09:40 98.2 F 92 20 101/65 97 Intake and Output 06/18/22 06/19/22 06/19/22 22:59 06:59 14:59 Other: Weight 71.214 kg GENERAL DESCRIPTION: Middle-aged male lying in bed, no distress. No tachypnea or accessory muscle of respiration use. HEENT: Shows Pallor , no scleral icterus. Oral mucous membrane is dry. No pharyngeal erythema or thrush NECK: Trachea central, no thyromegaly. LUNGS: Unlabored breathing. Clear to auscultation anteriorly. No wheeze or crackle. HEART: S1, S2, regular rate and rhythm. No loud murmur ABDOMEN: Soft, no tenderness , guarding or rigidity, no organomegaly EXTREMITIES: Left foot lateral border patient ulceration swelling redness or drainage. SKIN: No rash, no masses palpable. NEUROLOGICAL: The patient is awake, alert, oriented x3, mood and affect normal. Results CBC & Chem 7: 06/24/22 07:12 06/24/22 07:12 Labs: Abnormal Lab Results - Last 24 Hours (Table) 06/19/22 06/19/22 Range/Units 10:34 10:34 WBC 13.0 H (3.8-10.6) k/uL RBC 3.94 L (4.30-5.90) m/uL Hgb 11.9 L (13.0-17.5) gm/dL Hct 35.8 L (39.0-53.0) % Neutrophils # 9.5 H (1.3-7.7) k/uL Sodium 134 L (137-145) mmol/L Chloride 96 L (98-107) mmol/L Carbon Dioxide 32 H (22-30) mmol/L Glucose 311 H (74-99) mg/dL AST 13 L (17-59) U/L C-Reactive Protein 15.2 H (<1.0) mg/dL Assessment and Plan (1) Diabetic infection of left foot Status: Acute Code(s): E11.628 - TYPE 2 DIABETES MELLITUS WITH OTHER SKIN COMPLICATIONS; L08.9 - LOCAL INFECTION OF THE SKIN AND SUBCUTANEOUS TISSUE, UNSP SNOMED Code(s): 99277477 Plan: 1patient was in the hospital with extensive left diabetic foot infection patient involving the left fifth toe in this patient who did have ulceration both on the lateral and the plantar aspect and is draining pus concerning for underlying abscess keeping in mind his diabetes will need to cover for gram- positive as well as gram-negative pathogen 2-penicillin allergy that would limit the number of antibiotics safe to use 3-we will obtain a CT of the left foot to rule out any abscess 4-vascular surgery evaluation previously seen by who has been consulted for I&D and deep culture 5-vancomycin pharmacy to dose and cefepime will provide adequate empiric coverage at this point We will follow on clinical condition and cultures to further adjust medication if needed Thank you for this consultation we will follow the patient along with you Time with Patient: Greater than 30
[2022-06-19] MEDS: HEPARIN SODIUM,PORCINE/PF 5,000 UNIT/0.5 ML SYRINGE SQ SCH (21:54)
[2022-06-19] MEDS: FAMOTIDINE 20 MG TAB PO SCH (21:54)
[2022-06-19] MEDS: traZODone HCL 100 MG TAB PO SCH (21:54)
[2022-06-19] MEDS: INSULIN DETEMIR (LEVEMIR) 100 UNIT/ML SYR SQ SCH (21:55)
[2022-06-19] MEDS: METOCLOPRAMIDE 5 MG TAB PO SCH (22:36)
[2022-06-19] MEDS: AMITRIPTYLINE HCL 10 MG TAB PO SCH (22:36)
[2022-06-20] MEDS: VANCOMYCIN 1,250 MG in SODIUM CHLORIDE 0.9% 250 ML IVPB SCH ×3 (04:13→20:17)
--- NOTE | 2022-06-20 05:41 | HP ---
HISTORY AND PHYSICAL CHIEF COMPLAINT: Pain and swelling of the left foot. HISTORY OF PRESENT ILLNESS: This is a 36-year-old gentleman with a past medical history of diabetes mellitus, . The patient was recently admitted to [facility] with right diabetic foot. Currently, the patient is complaining of pain and swelling and redness of the left foot with some lymphadenopathy. The patient apparently had brittle diabetes mellitus with medications and continue to monitor, his hemoglobin A1c improved from 14 to 9 according to him. There is no history of any fever, rigors, or chills at this time. The CAT scan showed findings suggestive of osteomyelitis, need to be ruled out. There is no history of any fever or rigors. PAST MEDICAL HISTORY: Reviewed, include diabetes mellitus, hypertension, renal disease. The rest of the history and rest of the chart are also reviewed. HOME MEDICATIONS: Reviewed include trazodone, dose and rest of medication noted. ALLERGIES: Reviewed. Penicillin. FAMILY HISTORY: No history of heart disease or strokes in the family. SOCIAL HISTORY: Previous smoker. REVIEW OF SYSTEMS: A 14-point review is negative as mentioned earlier. PHYSICAL EXAMINATION: VITAL SIGNS: Pulse 88, blood pressure 110/61, respirations 16. HEENT: Conjunctivae normal. NECK: No JVD. CARDIOVASCULAR: S1, S2 muffled RESPIRATORY: Diminished at the bases. No rhonchi, no crackles. ABDOMEN: Soft, nontender. LEGS: Left foot is swollen, tender. Some erythema and tenderness in the mid part of the sole also present. NERVOUS SYSTEM: No focal motor deficits. SKIN: As mentioned. JOINTS: No active deforming arthropathy. LABORATORY DATA: WBC 13, hemoglobin 11.9. ASSESSMENT: 1. Acute diabetic foot, left with possible osteomyelitis. 2. Diabetes mellitus, type 2, uncontrolled. 3. Hypertension. 4. History of chronic kidney disease. 5. Anxiety, bipolar, depression. RECOMMENDATIONS: This is a 36-year-old gentleman who presented with multiple complex medical issues, we will monitor the patient closely. I would recommend a bone scan, broad-spectrum IV antibiotics, Infectious Disease and Vascular consultations. Overall prognosis guarded because of multiple complex medical issues and further recommendations to follow. See orders for further details. MMODL / IJN: [id number] / MTDD
[2022-06-20] MEDS: HYDROmorphone 1 MG/ML 1 ML SYRINGE IVP PRN ×4 (05:47→23:17)
--- NOTE | 2022-06-20 07:22 | P.GSHP ---
History of Present Illness 36-year-old white male is known to me from the past he had a abscess on the right foot in the past which she was drained in the in the past and completely healed now he came with marked redness and drainage from the infected callus l eft foot plantar aspect close to the fifth toe metatarsophalangeal joint there is marked redness noted in the plantar aspect and tenderness is drainage of pus from the infected callus patient will be scheduled today with I&D debridement debridement of the left foot possible fifth toe amputation Medical history history of diabetes hypertension chronic kidney disease Personal history ALLERGY to penicillin Neck is supple no bruit appreciated Chest is clear good entry both lungs first and second sound present Abdomen soft nontender vascular femorals are 1+ bilateral left foot has a callus at the fifth metatarsal phalangeal joint and redness on the dorsum and plantar aspect of the foot Plan is continue the patient nothing by mouth consent for I&D and debridement of the left foot infected callus possible fifth toe amputation risk and complication discussed Past Medical History Past Medical History: Diabetes Mellitus, Hypertension, Renal Disease Additional Past Medical History / Comment(s): Pt had recent upper respiratory infection and was on antibiotics/steroids for this, IDDM type I, past DKA about 1.5 yrs ago, neuropathy bilateral legs and runs up L side of body/L arm, hand and L side of face, L eye diabetic retinopathy, diabetic nephropathy-elevated urine protein, benign nasal polyp History of Any Multi-Drug Resistant Organisms: None Reported Past Surgical History: Tonsillectomy Additional Past Surgical History / Comment(s): Closed reduction nasal bone fracture with fixation septoplasty/open reduction L malary zygomatic arch fract ure. Past Anesthesia/Blood Transfusion Reactions: No Reported Reaction Past Psychological History: Anxiety, Bipolar, Depression Smoking Status: Former smoker Past Alcohol Use History: None Reported Past Drug Use History: None Reported - Past Family History Father Family Medical History: No Reported History Additional Family Medical History / Comment(s): Father is healthy Mother Family Medical History: Diabetes Mellitus Additional Family Medical History / Comment(s): Gastric ulcer, one leg shorter, neuropathy involving arms. Medications and Allergies Home Medications Medication Instructions Recorded Confirmed Type Amitriptyline HCl [Elavil] 10 mg PO HS 03/17/18 06/19/22 History Loratadine [Claritin] 10 mg PO DAILY 03/17/18 06/19/22 History Albuterol Sulfate [Ventolin HFA] 2 puff INHALATION RT-Q6H PRN 07/25/21 06/19/22 History Insulin Detemir (Levemir) [Levemir] 30 unit SQ HS 07/25/21 06/19/22 History Montelukast [Singulair] 10 mg PO DAILY 07/25/21 06/19/22 History Ondansetron Odt [Zofran ODT] 4 mg PO DAILY 07/25/21 06/19/22 History Sertraline [Zoloft] 100 mg PO DAILY 07/25/21 06/19/22 History Famotidine [Pepcid] 20 mg PO BID #60 tablet 08/02/21 06/19/22 Rx Cholecalciferol [Vitamin D3 (125 125 mcg PO DAILY 06/19/22 06/19/22 History Mcg = 5000 Iu)] Fluticasone Propion/Salmeterol 2 puff INHALATION RT-BID 06/19/22 06/19/22 History [Advair Hfa 45-21 Mcg Inhaler] Gabapentin [Neurontin] 800 mg PO TID 06/19/22 06/19/22 History Ibuprofen [Motrin] 800 mg PO Q8H PRN 06/19/22 06/19/22 History Insulin Aspart (For Pump) [NovoLOG 0.01 unit SQ-PUMP CONTINUOUS 06/19/22 06/19/22 History (For Pump)] Losartan [Cozaar] 12.5 mg PO DAILY 06/19/22 06/19/22 History Metoclopramide [Reglan] 5 mg PO BID 06/19/22 06/19/22 History traZODone HCL [Desyrel] 100 mg PO HS 06/19/22 06/19/22 History Allergies Allergy/AdvReac Type Severity Reaction Status Date / Time Penicillins Allergy Unknown Verified 06/19/22 11:18 Childhood Surgical - Exam Vital Signs Temp Pulse Resp BP Pulse Ox 98.2 F 92 20 101/65 97 06/19/22 09:40 06/19/22 09:40 06/19/22 09:40 06/19/22 09:40 06/19/22 09:40 Results - Labs 06/19/22 10:34 06/19/22 10:34 Abnormal Lab Results - Last 24 Hours (Table) 06/19/22 06/19/22 06/19/22 Range/Units 10:34 10:34 16:38 WBC 13.0 H (3.8-10.6) k/uL RBC 3.94 L (4.30-5.90) m/uL Hgb 11.9 L (13.0-17.5) gm/dL Hct 35.8 L (39.0-53.0) % Neutrophils # 9.5 H (1.3-7.7) k/uL ESR 91 H (0-15) mm/hr Sodium 134 L (137-145) mmol/L Chloride 96 L (98-107) mmol/L Carbon Dioxide 32 H (22-30) mmol/L Glucose 311 H (74-99) mg/dL POC Glucose (mg/dL) 201 H (70-110) mg/dL AST 13 L (17-59) U/L C-Reactive Protein 15.2 H (<1.0) mg/dL 06/19/22 Range/Units 20:35 WBC (3.8-10.6) k/uL RBC (4.30-5.90) m/uL Hgb (13.0-17.5) gm/dL Hct (39.0-53.0) % Neutrophils # (1.3-7.7) k/uL ESR (0-15) mm/hr Sodium (137-145) mmol/L Chloride (98-107) mmol/L Carbon Dioxide (22-30) mmol/L Glucose (74-99) mg/dL POC Glucose (mg/dL) 126 H (70-110) mg/dL AST (17-59) U/L C-Reactive Protein (<1.0) mg/dL Microbiology - Last 24 Hours (Table) 06/19/22 11:15 Wound Culture - Preliminary Foot - Left 06/19/22 11:15 Anaerobic Culture - Preliminary Foot - Left Diabetes panel 06/19/22 Range/Units 10:34 Sodium 134 L (137-145) mmol/L Potassium 4.4 (3.5-5.1) mmol/L Chloride 96 L (98-107) mmol/L Carbon Dioxide 32 H (22-30) mmol/L BUN 10 (9-20) mg/dL Creatinine 0.71 (0.66-1.25) mg/dL Glucose 311 H (74-99) mg/dL Calcium 8.4 (8.4-10.2) mg/dL AST 13 L (17-59) U/L ALT 11 (4-49) U/L Alkaline Phosphatase 100 (38-126) U/L Total Protein 7.5 (6.3-8.2) g/dL Albumin 3.6 (3.5-5.0) g/dL Calcium panel 06/19/22 Range/Units 10:34 Calcium 8.4 (8.4-10.2) mg/dL Albumin 3.6 (3.5-5.0) g/dL Pituitary panel 06/19/22 Range/Units 10:34 Sodium 134 L (137-145) mmol/L Potassium 4.4 (3.5-5.1) mmol/L Chloride 96 L (98-107) mmol/L Carbon Dioxide 32 H (22-30) mmol/L BUN 10 (9-20) mg/dL Creatinine 0.71 (0.66-1.25) mg/dL Glucose 311 H (74-99) mg/dL Calcium 8.4 (8.4-10.2) mg/dL Adrenal panel 06/19/22 Range/Units 10:34 Sodium 134 L (137-145) mmol/L Potassium 4.4 (3.5-5.1) mmol/L Chloride 96 L (98-107) mmol/L Carbon Dioxide 32 H (22-30) mmol/L BUN 10 (9-20) mg/dL Creatinine 0.71 (0.66-1.25) mg/dL Glucose 311 H (74-99) mg/dL Calcium 8.4 (8.4-10.2) mg/dL Total Bilirubin 0.6 (0.2-1.3) mg/dL AST 13 L (17-59) U/L ALT 11 (4-49) U/L Alkaline Phosphatase 100 (38-126) U/L Total Protein 7.5 (6.3-8.2) g/dL Albumin 3.6 (3.5-5.0) g/dL
[2022-06-20] MEDS: GABAPENTIN 400 MG CAP PO SCH ×3 (07:48→23:06)
[2022-06-20] MEDS: HEPARIN SODIUM,PORCINE/PF 5,000 UNIT/0.5 ML SYRINGE SQ SCH ×2 (07:48→20:18)
[2022-06-20] MEDS: SERTRALINE 100 MG TAB PO SCH (07:48)
[2022-06-20] MEDS: CHOLECALCIFEROL 125 MCG (5000 IU) TABLET PO SCH (07:48)
[2022-06-20] MEDS: LORATADINE 10 MG TAB PO SCH (07:49)
[2022-06-20] MEDS: FAMOTIDINE 20 MG TAB PO SCH ×2 (07:49→20:18)
[2022-06-20] MEDS: LOSARTAN 25 MG TAB PO SCH (07:49)
[2022-06-20] MEDS: MONTELUKAST 10 MG TAB PO SCH (07:50)
[2022-06-20] MEDS: METOCLOPRAMIDE 5 MG TAB PO SCH ×2 (07:50→20:18)
[2022-06-20] MEDS: ALBUTEROL HFA INHALER INHALATION PRN (08:12)
[2022-06-20] MEDS: SYMBICORT 80-4.5 MCG INHALER INHALATION SCH ×2 (08:12→20:03)
[2022-06-20 09:33] LABS: Basophils # (A) 0.09 X 10*3/uL (0.00-0.10); Basophils % (A) 0.9 %; Eosinophils # (A) 0.47 X 10*3/uL (0.04-0.35); Eosinophils % (A) 4.5 %; HCT 31.2 % (39.6-50.0); Immature Grans, Automated 0.4 %; Lymphocytes # (A) 2.14 X 10*3/uL (0.90-5.00); Lymphocytes % (A) 20.6 %; MCH 29.8 pg (27.0-32.0); MCHC 32.1 g/dL (32.0-37.0); MCV 92.9 fL (80.0-97.0); Mean Platelet Volume 11.8 fL (9.5-12.2); Monocytes # (A) 1.11 X 10*3/uL (0.20-1.00); Monocytes % (A) 10.7 %; NRBC Per 100 WBC 0 /100 WBCS (0.0-0.0); Neutrophils # (A) 6.54 X 10*3/uL (1.80-7.70); Neutrophils % (A) 62.9 %; Platelet Count 354 X 10*3/uL (140-440); RBC 3.36 X 10*6/uL (4.40-5.60); RDW 12.1 % (11.5-14.5); WBC 10.39 X 10*3/uL (4.50-10.00)
[2022-06-20 10:18] LABS: African American GFR (CKD) 139.7 (60.0-200.0); Anion Gap 10.1 mmol/L (10.00-18.00); BUN/Creat Ratio 9.57 Ratio (12.00-20.00); Blood Urea Nitrogen 6.7 mg/dL (9.0-27.0); Calcium 8.5 mg/dL (8.7-10.3); Carbon Dioxide 26.9 mmol/L (20.0-27.5); Non-African American GFR(CKD) 120.6 (60.0-200.0); Potassium 4.5 mmol/L (3.5-5.5)
[2022-06-20] MEDS: CEFEPIME 2 GM in SODIUM CHLORIDE 0.9% 100 ML IVPB SCH ×2 (13:56→23:07)
--- NOTE | 2022-06-20 14:06 | NM ---
EXAMINATION TYPE: NM bone 3 phase DATE OF EXAM: 06/20/2022 COMPARISON: NONE HISTORY: 06/19/2022 Triple phase bone scintigraphy was performed following the injection of 23.8 mCi Tc 99m MDP. Immedia te images and 6 hours post injection images acquired. FINDINGS: There is increased flow to the lateral margin of the left foot. There is increased soft tissue uptake compatible cellulitis. There is intense abnormal uptake involving the region of the fifth metatarsal and in particular metat arsal head compatible with osteoarthritis. Abnormal uptake seen involving the ankles and right first MTP likely postarthritic IMPRESSION: 1. Cellulitis and osteomyelitis left fifth metatarsal.
[2022-06-20] MEDS ORDERED: LACTATED RINGERS 1,000 ML IV ONE (14:21)
[2022-06-20] MEDS ORDERED: PROPOFOL 10 MG/ML 20 ML VIAL IV ONE (14:29)
[2022-06-20] MEDS ORDERED: LIDOCAINE 2% INJ 20 MG/ML (2 ML VIAL) ONE (14:29)
[2022-06-20] MEDS ORDERED: MIDAZOLAM 2 MG/2 ML VIAL ONE (14:29)
[2022-06-20] MEDS ORDERED: fentaNYL (PF) 50 MCG/ML 2 ML AMP ONE (14:29)
[2022-06-20 14:30] LABS: Glucose,Whole Blood 179 mg/dL (70-110)
[2022-06-20] MEDS ORDERED: ONDANSETRON 4 MG/2 ML VIAL IVP ONE (14:31)
[2022-06-20] MEDS ORDERED: DEXAMETHASONE SOD PHOSPHATE 4 MG/ML 1 ML VIAL IVP ONE (14:31)
[2022-06-20] MEDS ORDERED: LIDOCAINE 1%-EPI 1:100,000 20 ML VIAL SQ ONE (14:49)
[2022-06-20] MEDS: Insulin Aspart (For Pump) 100 UNIT/ML VIAL SQ-PUMP SCH (15:40)
[2022-06-20 15:42] LABS: Glucose,Whole Blood 179 mg/dL (70-110)
--- NOTE | 2022-06-20 15:56 | P.GSCN ---
History of Present Illness History of present illness: Preop diagnoses is infected callus involving the left foot at the base of the fifth metatarsal phalangeal joint drainage of pus also noted some redness and plantar dorsal aspect of the foot patient had his computed tomography scan is possible osteo-of the fifth the metatarsal bone Postoperative diagnoses is same procedure is incision was made on the lateral aspect of the fifth metatarsal joint deepened through skin fat and fascia elliptical incision was carried out down to the plantar aspect including the fifth toe metatarsophalangeal joint was isolated tendon on the plantar ulcer as pect were divided head of the metatarsal was her removed along with the specimen including all the devitalized tissue lateral aspect of the foot which was sent for the deep culture hemostasis were well controlled post debridement measurement is 5 x 3 x 1 cm Aquacel silver was placed pressure dressing applied. Are to the procedure well and transferred to recovery room in satisfactory condition Past Medical History Past Medical History: Diabetes Mellitus, Hypertension, Renal Disease Additional Past Medical History / Comment(s): Pt had recent upper respiratory infection and was on antibiotics/steroids for this, IDDM type I, past DKA about 1.5 yrs ago, neuropathy bilateral legs and runs up L side of body/L arm, hand and L side of face, L eye diabetic retinopathy, diabetic nephropathy-elevated urine protein, benign nasal polyp History of Any Multi-Drug Resistant Organisms: None Reported Past Surgical History: Tonsillectomy Additional Past Surgical History / Comment(s): Closed reduction nasal bone fracture with fixation septoplasty/open reduction L malary zygomatic arch fracture. Past Anesthesia/Blood Transfusion Reactions: No Reported Reaction Past Psychological History: Anxiety, Bipolar, Depression Smoking Status: Former smoker Past Alcohol Use History: None Reported Past Drug Use History: None Reported - Past Family History Father Family Medical History: No Reported History Additional Family Medical History / Comment(s): Father is healthy Mother Family Medical History: Diabetes Mellitus Additional Family Medical History / Comment(s): Gastric ulcer, one leg shorter, neuropathy involving arms. Medications and Allergies Home Medications Medication Instructions Recorded Confirmed Type Amitriptyline HCl [Elavil] 10 mg PO HS 03/17/18 06/19/22 History Loratadine [Claritin] 10 mg PO DAILY 03/17/18 06/19/22 History Albuterol Sulfate [Ventolin HFA] 2 puff INHALATION RT-Q6H PRN 07/25/21 06/19/22 History Insulin Detemir (Levemir) [Levemir] 30 unit SQ HS 07/25/21 06/19/22 History Montelukast [Singulair] 10 mg PO DAILY 07/25/21 06/19/22 History Ondansetron Odt [Zofran ODT] 4 mg PO DAILY 07/25/21 06/19/22 History Sertraline [Zoloft] 100 mg PO DAILY 07/25/21 06/19/22 History Famotidine [Pepcid] 20 mg PO BID #60 tablet 08/02/21 06/19/22 Rx Cholecalciferol [Vitamin D3 (125 125 mcg PO DAILY 06/19/22 06/19/22 History Mcg = 5000 Iu)] Fluticasone Propion/Salmeterol 2 puff INHALATION RT-BID 06/19/22 06/19/22 History [Advair Hfa 45-21 Mcg Inhaler] Gabapentin [Neurontin] 800 mg PO TID 06/19/22 06/19/22 History Ibuprofen [Motrin] 800 mg PO Q8H PRN 06/19/22 06/19/22 History Insulin Aspart (For Pump) [NovoLOG 0.01 unit SQ-PUMP CONTINUOUS 06/19/22 06/19/22 History (For Pump)] Losartan [Cozaar] 12.5 mg PO DAILY 06/19/22 06/19/22 History Metoclopramide [Reglan] 5 mg PO BID 06/19/22 06/19/22 History traZODone HCL [Desyrel] 100 mg PO HS 06/19/22 06/19/22 History Allergies Allergy/AdvReac Type Severity Reaction Status Date / Time Penicillins Allergy Unknown Verified 06/19/22 11:18 Childhood Surgical - Exam Vital Signs Temp Pulse Resp BP Pulse Ox 98.2 F 92 20 101/65 97 06/19/22 09:40 06/19/22 09:40 06/19/22 09:40 06/19/22 09:40 06/19/22 09:40 Results - Labs 06/20/22 05:40 06/20/22 05:40 Abnormal Lab Results - Last 24 Hours (Table) 06/19/22 06/19/22 06/20/22 Range/Units 16:38 20:35 05:40 WBC 10.39 H (4.50-10.00) X 10*3/uL RBC 3.36 L (4.40-5.60) X 10*6/uL Hgb 10.0 L (13.0-17.0) g/dL Hct 31.2 L (39.6-50.0) % Monocytes # 1.11 H (0.20-1.00) X 10*3/uL Eosinophils # 0.47 H (0.04-0.35) X 10*3/uL BUN (9.0-27.0) mg/dL BUN/Creatinine Ratio (12.00-20.00) Ratio Glucose (70-110) mg/dL POC Glucose (mg/dL) 201 H 126 H (70-110) mg/dL Calcium (8.7-10.3) mg/dL 06/20/22 06/20/22 06/20/22 Range/Units 05:40 14:28 15:40 WBC (4.50-10.00) X 10*3/uL RBC (4.40-5.60) X 10*6/uL Hgb (13.0-17.0) g/dL Hct (39.6-50.0) % Monocytes # (0.20-1.00) X 10*3/uL Eosinophils # (0.04-0.35) X 10*3/uL BUN 6.7 L (9.0-27.0) mg/dL BUN/Creatinine Ratio 9.57 L (12.00-20.00) Ratio Glucose 149 H (70-110) mg/dL POC Glucose (mg/dL) 179 H 179 H (70-110) mg/dL Calcium 8.5 L (8.7-10.3) mg/dL Microbiology - Last 24 Hours (Table) 06/19/22 10:25 Blood Culture - Preliminary Blood No Growth after 24 hours 06/19/22 10:10 Blood Culture - Preliminary Blood No Growth after 24 hours 06/19/22 11:15 Gram Stain - Preliminary Foot - Left Wound Culture - Preliminary Presumptive Staph aureus 06/19/22 11:15 Anaerobic Culture - Preliminary Foot - Left Diabetes panel 06/20/22 Range/Units 05:40 Sodium 138 (135-145) mmol/L Potassium 4.5 (3.5-5.5) mmol/L Chloride 101 (96-109) mmol/L Carbon Dioxide 26.9 (20.0-27.5) mmol/L BUN 6.7 L (9.0-27.0) mg/dL Creatinine 0.7 (0.6-1.5) mg/dL Glucose 149 H (70-110) mg/dL Calcium 8.5 L (8.7-10.3) mg/dL Calcium panel 06/20/22 Range/Units 05:40 Calcium 8.5 L (8.7-10.3) mg/dL Pituitary panel 06/20/22 Range/Units 05:40 Sodium 138 (135-145) mmol/L Potassium 4.5 (3.5-5.5) mmol/L Chloride 101 (96-109) mmol/L Carbon Dioxide 26.9 (20.0-27.5) mmol/L BUN 6.7 L (9.0-27.0) mg/dL Creatinine 0.7 (0.6-1.5) mg/dL Glucose 149 H (70-110) mg/dL Calcium 8.5 L (8.7-10.3) mg/dL Adrenal panel 06/20/22 Range/Units 05:40 Sodium 138 (135-145) mmol/L Potassium 4.5 (3.5-5.5) mmol/L Chloride 101 (96-109) mmol/L Carbon Dioxide 26.9 (20.0-27.5) mmol/L BUN 6.7 L (9.0-27.0) mg/dL Creatinine 0.7 (0.6-1.5) mg/dL Glucose 149 H (70-110) mg/dL Calcium 8.5 L (8.7-10.3) mg/dL
[2022-06-20] MEDS ORDERED: VANCOMYCIN TROUGH DUE 1 EACH MISC MISCELLANE ONE (19:00)
[2022-06-20] MEDS: HYDROcodone/APAP 5-325MG 1 EACH TAB PO PRN (19:28)
[2022-06-20] MEDS: AMITRIPTYLINE HCL 10 MG TAB PO SCH (20:18)
[2022-06-20] MEDS: traZODone HCL 100 MG TAB PO SCH (20:18)
[2022-06-20] MEDS: INSULIN DETEMIR (LEVEMIR) 100 UNIT/ML SYR SQ SCH (20:32)
--- NOTE | 2022-06-20 21:58 | P.PN ---
Subjective Progress Note Date: 06/20/22 Principal diagnosis: Left fifth toe diabetic foot infection Patient is a 36-year-old male with a past medical history significant for diabetes mellitus and diabetic foot infection presented to the hospital with left fifth toe pain swelling redness and drainage. On today's evaluation that is 06/20/2022, the patient denies having any fever or any chills, patient overall pain to the left fifth toe is controlled. Denies having any chest pain shortness of breath or cough no abdominal pain Objective - Vital Signs Vital signs: Vital Signs Temp 100.1 F H 06/20/22 08:00 Pulse 100 06/20/22 08:00 Resp 19 06/20/22 08:00 BP 94/63 06/20/22 08:00 Pulse Ox 94 L 06/20/22 08:00 FiO2 Intake & Output 06/19/22 06/20/22 06/20/22 18:59 06:59 18:59 Intake Total 450 600 Balance 450 600 Weight 71.214 kg Intake: Intake, IV Titration 450 600 Amount Cefepime 2 gm In Sodium 200 100 Chloride 0.9% 100 ml @ 25 mls/hr IVPB Q12H [facility] Rx# :[id number] Vancomycin 1,250 mg In 250 500 Sodium Chloride 0.9% 250 ml @ 125 mls/hr IVPB Q8H [facility] Rx#:[id number] Other: # Voids 4 - Exam GENERAL DESCRIPTION: A middle-age male lying in bed in no distress RESPIRATORY SYSTEM: Unlabored breathing , decreased breath sounds at bases HEART: S1 S2 regular rate and rhythm , ABDOMEN: Soft , no tenderness EXTREMITIES: Left foot is currently dressed - Labs CBC & Chem 7: 06/20/22 05:40 06/20/22 05:40 Labs: Abnormal Lab Results - Last 24 Hours (Table) 06/19/22 06/19/22 06/19/22 Range/Units 10:34 10:34 16:38 WBC 13.0 H (3.8-10.6) k/uL RBC 3.94 L (4.30-5.90) m/uL Hgb 11.9 L (13.0-17.5) gm/dL Hct 35.8 L (39.0-53.0) % Neutrophils # 9.5 H (1.3-7.7) k/uL Monocytes # (0.20-1.00) X 10*3/uL Eosinophils # (0.04-0.35) X 10*3/uL ESR 91 H (0-15) mm/hr Sodium 134 L (137-145) mmol/L Chloride 96 L (98-107) mmol/L Carbon Dioxide 32 H (22-30) mmol/L Glucose 311 H (74-99) mg/dL POC Glucose (mg/dL) 201 H (70-110) mg/dL AST 13 L (17-59) U/L C-Reactive Protein 15.2 H (<1.0) mg/dL 06/19/22 06/20/22 Range/Units 20:35 05:40 WBC 10.39 H (3.8-10.6) k/uL RBC 3.36 L (4.30-5.90) m/uL Hgb 10.0 L (13.0-17.5) gm/dL Hct 31.2 L (39.0-53.0) % Neutrophils # (1.3-7.7) k/uL Monocytes # 1.11 H (0.20-1.00) X 10*3/uL Eosinophils # 0.47 H (0.04-0.35) X 10*3/uL ESR (0-15) mm/hr Sodium (137-145) mmol/L Chloride (98-107) mmol/L Carbon Dioxide (22-30) mmol/L Glucose (74-99) mg/dL POC Glucose (mg/dL) 126 H (70-110) mg/dL AST (17-59) U/L C-Reactive Protein (<1.0) mg/dL Microbiology - Last 24 Hours (Table) 06/19/22 11:15 Gram Stain - Preliminary Foot - Left Wound Culture - Preliminary 06/19/22 11:15 Anaerobic Culture - Preliminary Foot - Left Assessment and Plan (1) Diabetic infection of left foot Current Visit: Yes Status: Acute Code(s): E11.628 - TYPE 2 DIABETES MELLITUS WITH OTHER SKIN COMPLICATIONS; L08.9 - LOCAL INFECTION OF THE SKIN AND SUBCUTANEOUS TISSUE, UNSP SNOMED Code(s): 65911488 Plan: 1patient was in the hospital with extensive left diabetic foot infection patient involving the left fifth toe in this patient who did have ulceration both on the lateral and the plantar aspect and is draining pus concerning for underlying abscess keeping in mind his diabetes will need to cover for gram- positive as well as gram-negative pathogen 2-penicillin allergy that would limit the number of antibiotics safe to use 3- CT of the left foot did not show any abscess 4-patient has been evaluated by vascular surgery and scheduled for I&D and deep culture this afternoon 5-vancomycin pharmacy to dose and cefepime will provide adequate empiric coverage at this point Time with Patient: Less than 30
[2022-06-21 01:38] LABS: Glucose,Whole Blood 249 mg/dL (70-110)
[2022-06-21] MEDS: VANCOMYCIN 1,250 MG in SODIUM CHLORIDE 0.9% 250 ML IVPB SCH ×2 (04:05→12:27)
--- NOTE | 2022-06-21 06:51 | P.PN ---
Subjective Progress Note Date: 06/20/22 This is a pleasant 36-year-old male with significant past medical history of diabetes with concerns for diabetic foot ulcer on the left with infection. Patient is being closely monitored with infectious disease and vascular surgery following an undergoing bone scan currently. Patient is tentatively scheduled for debridement of the ulcer with possible amputation of the fifth digit. Patient is a brittle diabetic and reports has had history of ulcers in the past. Patient does use a pump to monitor sugars closely. Recommend before meals at bedtime monitoring and okay to use patient's device for documentation of blood sugar readings. Patient is currently afebrile denies chest pain or shortness of breath. Patient is currently nothing by mouth as patient is tentatively scheduled for debridement with amputation with Dr. Luu today. Will await surgical report. Patient is also continued on antibiotics with infectious disease following. Review of systems: Constitutional: No reports of fatigue, fever, or chills Cardiovascular: No reports of chest pain or palpitations Respiratory: No reports of shortness of breath or cough GI: no reports of nausea, no reports of vomiting, no diarrhea : No reports of dysuria or retention Neurovascular: reports of generalized weakness, reports left foot pain All medications have been reviewed Active Medications Acetaminophen (Acetaminophen Tab 325 Mg Tab) 650 mg PO Q6HR PRN PRN Reason: Mild Pain or Fever > 100.5 Hydrocodone Bitart/Acetaminophen (Hydrocodone/Apap 5-325mg 1 Each Tab) 1 each PO Q6HR PRN PRN Reason: Pain Last Admin: 06/20/22 19:28 Dose: 1 each Albuterol Sulfate (Albuterol Hfa Inhaler) 2 puff INHALATION RT-Q6H PRN PRN Reason: Shortness Of Breath Last Admin: 06/20/22 08:12 Dose: 2 puff Amitriptyline HCl (Amitriptyline Hcl 10 Mg Tab) 10 mg PO HS [facility] Last Admin: 06/20/22 20:18 Dose: 10 mg Budesonide/Formoterol Fumarate (Symbicort 80-4.5 Mcg Inhaler) 2 puff INHALATION RT-BID [facility] Last Admin: 06/20/22 20:03 Dose: 2 puff Cholecalciferol (Cholecalciferol 125 Mcg (5000 Iu) Tablet) 125 mcg PO DAILY [facility] Last Admin: 06/20/22 07:48 Dose: 125 mcg Famotidine (Famotidine 20 Mg Tab) 20 mg PO BID [facility] Last Admin: 06/20/22 20:18 Dose: 20 mg Gabapentin (Gabapentin 400 Mg Cap) 800 mg PO TID [facility] Last Admin: 06/20/22 23:06 Dose: 800 mg Heparin Sodium (Porcine) (Heparin Sodium,Porcine/Pf 5,000 Unit/0.5 Ml Syringe) 5,000 unit SQ Q12HR [facility] Last Admin: 06/20/22 20:18 Dose: 5,000 unit Hydromorphone HCl (Hydromorphone 0.5 Mg/0.5 Ml Syringe) 0.5 mg IVP Q3HR PRN PRN Reason: Moderate Pain (Scale 4 to 6) Hydromorphone HCl (Hydromorphone 1 Mg/Ml 1 Ml Syringe) 1 mg IVP Q3HR PRN PRN Reason: Severe Pain (Scale 7 to 10) Last Admin: 06/20/22 23:17 Dose: 1 mg Cefepime HCl 2 gm/ Sodium (Chloride) 100 mls @ 25 mls/hr IVPB Q12H [facility]; Protocol Last Admin: 06/20/22 23:07 Dose: 25 mls/hr Vancomycin HCl 1,250 mg/ (Sodium Chloride) 250 mls @ 125 mls/hr IVPB Q8H [facility] Last Admin: 06/21/22 04:05 Dose: 125 mls/hr Insulin Aspart (Insulin Aspart (For Pump) 100 Unit/Ml Vial) 0.01 unit SQ-PUMP CONTINUOUS [facility] Last Admin: 06/20/22 15:40 Dose: Not Given Insulin Detemir (Insulin Detemir (Levemir) 100 Unit/Ml Syr) 30 unit SQ HS [facility] Last Admin: 06/20/22 20:32 Dose: Not Given Ketorolac Tromethamine (Ketorolac 15 Mg/Ml 1 Ml Vial) 15 mg IVP Q6HR PRN PRN Reason: Moderate Pain (Scale 4 to 6) Stop: 06/22/22 12:20 Loratadine (Loratadine 10 Mg Tab) 10 mg PO DAILY [facility] Last Admin: 06/20/22 07:49 Dose: 10 mg Losartan Potassium (Losartan 25 Mg Tab) 12.5 mg PO DAILY [facility] Last Admin: 06/20/22 07:49 Dose: 12.5 mg Metoclopramide HCl (Metoclopramide 5 Mg Tab) 5 mg PO BID [facility] Last Admin: 06/20/22 20:18 Dose: 5 mg Montelukast Sodium (Montelukast 10 Mg Tab) 10 mg PO DAILY [facility] Last Admin: 06/20/22 07:50 Dose: 10 mg Naloxone HCl (Naloxone 0.4 Mg/Ml 1 Ml Vial) 0.2 mg IV Q2M PRN PRN Reason: Opioid Reversal Ondansetron HCl (Ondansetron 4 Mg/2 Ml Vial) 4 mg IVP Q8HR PRN PRN Reason: Nausea And Vomiting Sertraline HCl (Sertraline 100 Mg Tab) 100 mg PO DAILY [facility] Last Admin: 06/20/22 07:48 Dose: 100 mg Trazodone HCl (Trazodone Hcl 100 Mg Tab) 100 mg PO HS [facility] Last Admin: 06/20/22 20:18 Dose: 100 mg PHYSICAL EXAMINATION: GENERAL: The patient is alert and oriented x4, Well developed, well nourished. HEENT: Pupils are round and equally reacting to light. EOMI. no scleral icterus. No conjunctival pallor. Normocephalic, atraumatic. No pharyngeal erythema. No thyromegaly. CARDIOVASCULAR: S1 and S2 muffled PULMONARY: diminished breath sounds bilaterally with no wheezing or rhonchi noted. ABDOMEN: soft. Nontender on exam. non-distended, normoactive bowel sounds. No palpable organomegaly. MUSCULOSKELETAL: No joint swelling or deformity. EXTREMITIES: No cyanosis, clubbing, or pedal edema. Left foot currently dressed NEUROLOGICAL: Gross neurological examination did not reveal any focal deficits. SKIN: No rashes. Assessment: Acute diabetic foot ulcer of the left with osteomyelitis Diabetes mellitus, type II, insulin-dependent, uncontrolled with hyperglycemia Hypertension History of chronic kidney disease History of anxiety/bipolar depression GI prophylaxis DVT prophylaxis Full code Plan: Recommend to continue with current medications and management Vascular surgery and infectious disease following. Patient is continued on antibiotics in the form of vancomycin and cefepime and awaiting for cultures. Vascular surgery Dr. Luu following and patient is scheduled for left fifth toe digit amputation with debridement of the ulcer. Will await surgical report Bone scan is suggestive of osteomyelitis with cellulitis Patient does have an insulin pump along with the blood glucose monitor and okay to use patient's readings for documentation of blood sugar readings. Recommend before meals at bedtime and will continue with current insulin regimen Will follow-up with repeat labs and await finalized cultures with antibiotic recommendations per infectious disease Recommend continue with local wound care and increased activity as tolerated with restrictions per vascular surgery Prognosis is guarded The impression and plan of care has been dictated by Loyda Chang, nurse practitioner as directed. Dr. My MD I have performed a history and examination and MDM of this patient, discussed the same with the dictator, and agree with the dictator's assessment and plan as written ,documented as a scribe. Based on total visit time, I have performed more than 50% of the visit. Any additional findings or plans will be noted. Objective - Vital Signs Vital signs: Vital Signs Temp 100.1 F H 06/20/22 08:00 Pulse 100 06/20/22 08:00 Resp 19 06/20/22 08:00 BP 94/63 06/20/22 08:00 Pulse Ox 94 L 06/20/22 08:00 FiO2 Intake & Output 06/19/22 06/20/22 06/20/22 18:59 06:59 18:59 Intake Total 450 600 Balance 450 600 Weight 71.214 kg Intake: Intake, IV Titration 450 600 Amount Cefepime 2 gm In Sodium 200 100 Chloride 0.9% 100 ml @ 25 mls/hr IVPB Q12H [facility] Rx# :[id number] Vancomycin 1,250 mg In 250 500 Sodium Chloride 0.9% 250 ml @ 125 mls/hr IVPB Q8H [facility] Rx#:[id number] Other: # Voids 4 - Labs CBC & Chem 7: 06/20/22 05:40 06/20/22 05:40 Labs: Abnormal Lab Results - Last 24 Hours (Table) 06/19/22 06/19/22 06/19/22 Range/Units 10:34 10:34 16:38 WBC 13.0 H (3.8-10.6) k/uL RBC 3.94 L (4.30-5.90) m/uL Hgb 11.9 L (13.0-17.5) gm/dL Hct 35.8 L (39.0-53.0) % Neutrophils # 9.5 H (1.3-7.7) k/uL Monocytes # (0.20-1.00) X 10*3/uL Eosinophils # (0.04-0.35) X 10*3/uL ESR 91 H (0-15) mm/hr Sodium 134 L (137-145) mmol/L Chloride 96 L (98-107) mmol/L Carbon Dioxide 32 H (22-30) mmol/L BUN (9.0-27.0) mg/dL BUN/Creatinine Ratio (12.00-20.00) Ratio Glucose 311 H (74-99) mg/dL POC Glucose (mg/dL) 201 H (70-110) mg/dL Calcium (8.7-10.3) mg/dL AST 13 L (17-59) U/L C-Reactive Protein 15.2 H (<1.0) mg/dL 06/19/22 06/20/22 06/20/22 Range/Units 20:35 05:40 05:40 WBC 10.39 H (3.8-10.6) k/uL RBC 3.36 L (4.30-5.90) m/uL Hgb 10.0 L (13.0-17.5) gm/dL Hct 31.2 L (39.0-53.0) % Neutrophils # (1.3-7.7) k/uL Monocytes # 1.11 H (0.20-1.00) X 10*3/uL Eosinophils # 0.47 H (0.04-0.35) X 10*3/uL ESR (0-15) mm/hr Sodium (137-145) mmol/L Chloride (98-107) mmol/L Carbon Dioxide (22-30) mmol/L BUN 6.7 L (9.0-27.0) mg/dL BUN/Creatinine Ratio 9.57 L (12.00-20.00) Ratio Glucose 149 H (74-99) mg/dL POC Glucose (mg/dL) 126 H (70-110) mg/dL Calcium 8.5 L (8.7-10.3) mg/dL AST (17-59) U/L C-Reactive Protein (<1.0) mg/dL Microbiology - Last 24 Hours (Table) 06/19/22 11:15 Gram Stain - Preliminary Foot - Left Wound Culture - Preliminary 06/19/22 11:15 Anaerobic Culture - Preliminary Foot - Left
[2022-06-21] MEDS: SYMBICORT 80-4.5 MCG INHALER INHALATION SCH ×2 (07:45→19:34)
[2022-06-21] MEDS: ALBUTEROL HFA INHALER INHALATION PRN ×4 (07:45→19:34)
[2022-06-21] MEDS: SERTRALINE 100 MG TAB PO SCH (08:31)
[2022-06-21] MEDS: GABAPENTIN 400 MG CAP PO SCH ×3 (08:31→20:39)
[2022-06-21] MEDS: MONTELUKAST 10 MG TAB PO SCH (08:31)
[2022-06-21] MEDS: CHOLECALCIFEROL 125 MCG (5000 IU) TABLET PO SCH (08:31)
[2022-06-21] MEDS: LORATADINE 10 MG TAB PO SCH (08:31)
[2022-06-21] MEDS: LOSARTAN 25 MG TAB PO SCH (08:31)
[2022-06-21] MEDS: FAMOTIDINE 20 MG TAB PO SCH ×2 (08:31→20:40)
[2022-06-21] MEDS: HEPARIN SODIUM,PORCINE/PF 5,000 UNIT/0.5 ML SYRINGE SQ SCH ×2 (08:32→20:39)
[2022-06-21] MEDS: METOCLOPRAMIDE 5 MG TAB PO SCH ×2 (08:32→22:30)
[2022-06-21] MEDS: HYDROmorphone 1 MG/ML 1 ML SYRINGE IVP PRN ×5 (08:35→23:10)
[2022-06-21 09:15] LABS: Basophils # (A) 0.06 X 10*3/uL (0.00-0.10); Basophils % (A) 0.5 %; Eosinophils # (A) 0.05 X 10*3/uL (0.04-0.35); Eosinophils % (A) 0.4 %; HCT 35.1 % (39.6-50.0); HGB 11.4 g/dL (13.0-17.0); Immature Grans, Automated 0.2 %; Lymphocytes # (A) 1.71 X 10*3/uL (0.90-5.00); Lymphocytes % (A) 13.2 %; MCH 29.9 pg (27.0-32.0); MCHC 32.5 g/dL (32.0-37.0); MCV 92.1 fL (80.0-97.0); Mean Platelet Volume 11.6 fL (9.5-12.2); Monocytes # (A) 1.15 X 10*3/uL (0.20-1.00); Monocytes % (A) 8.9 %; NRBC Per 100 WBC 0 /100 WBCS (0.0-0.0); Neutrophils # (A) 9.92 X 10*3/uL (1.80-7.70); Neutrophils % (A) 76.8 %; Platelet Count 439 X 10*3/uL (140-440); RBC 3.81 X 10*6/uL (4.40-5.60); RDW 12.1 % (11.5-14.5); WBC 12.92 X 10*3/uL (4.50-10.00)
[2022-06-21 09:21] LABS: African American GFR (CKD) 140.6 (60.0-200.0); Anion Gap 10.9 mmol/L (10.00-18.00); BUN/Creat Ratio 11.45 Ratio (12.00-20.00); Blood Urea Nitrogen 7.9 mg/dL (9.0-27.0); Carbon Dioxide 25.9 mmol/L (20.0-27.5); Magnesium 1.9 mg/dL (1.5-2.4); Non-African American GFR(CKD) 121.3 (60.0-200.0); Potassium 4.7 mmol/L (3.5-5.5)
[2022-06-21] MEDS: CEFEPIME 2 GM in SODIUM CHLORIDE 0.9% 100 ML IVPB SCH (12:26)
[2022-06-21] MEDS: metroNIDAZOLE 500 MG TAB PO SCH ×2 (15:58→20:40)
[2022-06-21] MEDS: Insulin Aspart (For Pump) 100 UNIT/ML VIAL SQ-PUMP SCH (15:58)
--- NOTE | 2022-06-21 16:05 | P.PN ---
Subjective Progress Note Date: 06/21/22 This is a pleasant 36-year-old male with significant past medical history of diabetes with concerns for diabetic foot ulcer on the left with infection. Patient is being closely monitored with infectious disease and vascular surgery following an undergoing bone scan currently. Patient is tentatively scheduled for debridement of the ulcer with possible amputation of the fifth digit. Patient is a brittle diabetic and reports has had history of ulcers in the past. Patient does use a pump to monitor sugars closely. Recommend before meals at bedtime monitoring and okay to use patient's device for documentation of blood sugar readings. Patient is currently afebrile denies chest pain or shortness of breath. Patient is currently nothing by mouth as patient is tentatively scheduled for debridement with amputation with Dr. Luu today. Will await surgical report. Patient is also continued on antibiotics with infectious disease following. Review of systems: Constitutional: No reports of fatigue, fever, or chills Cardiovascular: No reports of chest pain or palpitations Respiratory: No reports of shortness of breath or cough GI: no reports of nausea, no reports of vomiting, no diarrhea : No reports of dysuria or retention Neurovascular: reports of generalized weakness, reports left foot pain All medications have been reviewed Active Medications Acetaminophen (Acetaminophen Tab 325 Mg Tab) 650 mg PO Q6HR PRN PRN Reason: Mild Pain or Fever > 100.5 Hydrocodone Bitart/Acetaminophen (Hydrocodone/Apap 5-325mg 1 Each Tab) 1 each PO Q6HR PRN PRN Reason: Pain Last Admin: 06/20/22 19:28 Dose: 1 each Albuterol Sulfate (Albuterol Hfa Inhaler) 2 puff INHALATION RT-Q6H PRN PRN Reason: Shortness Of Breath Last Admin: 06/20/22 08:12 Dose: 2 puff Amitriptyline HCl (Amitriptyline Hcl 10 Mg Tab) 10 mg PO HS [facility] Last Admin: 06/20/22 20:18 Dose: 10 mg Budesonide/Formoterol Fumarate (Symbicort 80-4.5 Mcg Inhaler) 2 puff INHALATION RT-BID [facility] Last Admin: 06/20/22 20:03 Dose: 2 puff Cholecalciferol (Cholecalciferol 125 Mcg (5000 Iu) Tablet) 125 mcg PO DAILY [facility] Last Admin: 06/20/22 07:48 Dose: 125 mcg Famotidine (Famotidine 20 Mg Tab) 20 mg PO BID [facility] Last Admin: 06/20/22 20:18 Dose: 20 mg Gabapentin (Gabapentin 400 Mg Cap) 800 mg PO TID [facility] Last Admin: 06/20/22 23:06 Dose: 800 mg Heparin Sodium (Porcine) (Heparin Sodium,Porcine/Pf 5,000 Unit/0.5 Ml Syringe) 5,000 unit SQ Q12HR [facility] Last Admin: 06/20/22 20:18 Dose: 5,000 unit Hydromorphone HCl (Hydromorphone 0.5 Mg/0.5 Ml Syringe) 0.5 mg IVP Q3HR PRN PRN Reason: Moderate Pain (Scale 4 to 6) Hydromorphone HCl (Hydromorphone 1 Mg/Ml 1 Ml Syringe) 1 mg IVP Q3HR PRN PRN Reason: Severe Pain (Scale 7 to 10) Last Admin: 06/20/22 23:17 Dose: 1 mg Cefepime HCl 2 gm/ Sodium (Chloride) 100 mls @ 25 mls/hr IVPB Q12H [facility]; Protocol Last Admin: 06/20/22 23:07 Dose: 25 mls/hr Vancomycin HCl 1,250 mg/ (Sodium Chloride) 250 mls @ 125 mls/hr IVPB Q8H [facility] Last Admin: 06/21/22 04:05 Dose: 125 mls/hr Insulin Aspart (Insulin Aspart (For Pump) 100 Unit/Ml Vial) 0.01 unit SQ-PUMP CONTINUOUS [facility] Last Admin: 06/20/22 15:40 Dose: Not Given Insulin Detemir (Insulin Detemir (Levemir) 100 Unit/Ml Syr) 30 unit SQ HS [facility] Last Admin: 06/20/22 20:32 Dose: Not Given Ketorolac Tromethamine (Ketorolac 15 Mg/Ml 1 Ml Vial) 15 mg IVP Q6HR PRN PRN Reason: Moderate Pain (Scale 4 to 6) Stop: 06/22/22 12:20 Loratadine (Loratadine 10 Mg Tab) 10 mg PO DAILY [facility] Last Admin: 06/20/22 07:49 Dose: 10 mg Losartan Potassium (Losartan 25 Mg Tab) 12.5 mg PO DAILY [facility] Last Admin: 06/20/22 07:49 Dose: 12.5 mg Metoclopramide HCl (Metoclopramide 5 Mg Tab) 5 mg PO BID [facility] Last Admin: 06/20/22 20:18 Dose: 5 mg Montelukast Sodium (Montelukast 10 Mg Tab) 10 mg PO DAILY [facility] Last Admin: 06/20/22 07:50 Dose: 10 mg Naloxone HCl (Naloxone 0.4 Mg/Ml 1 Ml Vial) 0.2 mg IV Q2M PRN PRN Reason: Opioid Reversal Ondansetron HCl (Ondansetron 4 Mg/2 Ml Vial) 4 mg IVP Q8HR PRN PRN Reason: Nausea And Vomiting Sertraline HCl (Sertraline 100 Mg Tab) 100 mg PO DAILY [facility] Last Admin: 06/20/22 07:48 Dose: 100 mg Trazodone HCl (Trazodone Hcl 100 Mg Tab) 100 mg PO HS [facility] Last Admin: 06/20/22 20:18 Dose: 100 mg PHYSICAL EXAMINATION: GENERAL: The patient is alert and oriented x4, Well developed, well nourished. HEENT: Pupils are round and equally reacting to light. EOMI. no scleral icterus. No conjunctival pallor. Normocephalic, atraumatic. No pharyngeal erythema. No thyromegaly. CARDIOVASCULAR: S1 and S2 muffled PULMONARY: diminished breath sounds bilaterally with no wheezing or rhonchi noted. ABDOMEN: soft. Nontender on exam. non-distended, normoactive bowel sounds. No palpable organomegaly. MUSCULOSKELETAL: No joint swelling or deformity. EXTREMITIES: No cyanosis, clubbing, or pedal edema. Left foot currently dressed NEUROLOGICAL: Gross neurological examination did not reveal any focal deficits. SKIN: No rashes. Assessment: Acute diabetic foot ulcer of the left with osteomyelitis Diabetes mellitus, type II, insulin-dependent, uncontrolled with hyperglycemia Hypertension History of chronic kidney disease History of anxiety/bipolar depression GI prophylaxis DVT prophylaxis Full code Plan: Recommend to continue with current medications and management Vascular surgery and infectious disease following. Patient is continued on antibiotics with cultures showing Staphylococcus aureus and IV antibiotics being transitioned to cefazolin Vascular surgery Dr. Luu following and patient underwent left fifth toe digit amputation with debridement of the ulcer. Recommending wound care, continued antibiotics, and dressing changes on Thursday Bone scan is suggestive of osteomyelitis with cellulitis Patient does have an insulin pump along with the blood glucose monitor and okay to use patient's readings for documentation of blood sugar readings. Recommend before meals at bedtime and will continue with current insulin regimen Will need to discuss further with infectious disease about discharge antibiotics and if requiring IV antibiotic therapy Recommend continue with local wound care and increased activity as tolerated with restrictions per vascular surgery Prognosis is guarded The impression and plan of care has been dictated as a scribe by Loyda Chang, nurse practitioner as directed. Dr. My MD I have performed a history and examination and MDM of this patient, discussed the same with the dictator, and will be documented as a scribe. Based on total visit time, I have performed more than 50% of the visit. Any additional findings or plans will be noted. Objective - Vital Signs Vital signs: Vital Signs Temp 98.2 F 06/21/22 07:19 Pulse 91 06/21/22 07:19 Resp 16 06/21/22 07:19 BP 103/65 06/21/22 07:19 Pulse Ox 93 L 06/21/22 07:19 FiO2 Intake & Output 06/20/22 06/21/22 06/21/22 18:59 06:59 18:59 Intake Total 300 730 Output Total 10 Balance 290 730 Intake: IV 300 Intake, IV Titration 250 Amount Vancomycin 1,250 mg In 250 Sodium Chloride 0.9% 250 ml @ 125 mls/hr IVPB Q8H [facility] Rx#:[id number] Oral 480 Output: Estimated Blood Loss 10 Other: # Voids 2 4 - Labs CBC & Chem 7: 06/21/22 06:26 06/21/22 06:26 Labs: Abnormal Lab Results - Last 24 Hours (Table) 06/20/22 06/20/22 06/21/22 Range/Units 14:28 15:40 01:36 WBC (4.50-10.00) X 10*3/uL RBC (4.40-5.60) X 10*6/uL Hgb (13.0-17.0) g/dL Hct (39.6-50.0) % Neutrophils # (1.80-7.70) X 10*3/uL Monocytes # (0.20-1.00) X 10*3/uL BUN (9.0-27.0) mg/dL BUN/Creatinine Ratio (12.00-20.00) Ratio Glucose (70-110) mg/dL POC Glucose (mg/dL) 179 H 179 H 249 H (70-110) mg/dL 06/21/22 06/21/22 Range/Units 06:26 06:26 WBC 12.92 H (4.50-10.00) X 10*3/uL RBC 3.81 L (4.40-5.60) X 10*6/uL Hgb 11.4 L (13.0-17.0) g/dL Hct 35.1 L (39.6-50.0) % Neutrophils # 9.92 H (1.80-7.70) X 10*3/uL Monocytes # 1.15 H (0.20-1.00) X 10*3/uL BUN 7.9 L (9.0-27.0) mg/dL BUN/Creatinine Ratio 11.45 L (12.00-20.00) Ratio Glucose 169 H (70-110) mg/dL POC Glucose (mg/dL) (70-110) mg/dL Microbiology - Last 24 Hours (Table) 06/19/22 10:25 Blood Culture - Preliminary Blood No Growth after 24 hours 06/19/22 10:10 Blood Culture - Preliminary Blood No Growth after 24 hours 06/19/22 11:15 Gram Stain - Preliminary Foot - Left Wound Culture - Preliminary Presumptive Staph aureus
[2022-06-21] MEDS: HYDROcodone/APAP 5-325MG 1 EACH TAB PO PRN (19:37)
[2022-06-21] MEDS: AMITRIPTYLINE HCL 10 MG TAB PO SCH (20:40)
[2022-06-21] MEDS: traZODone HCL 100 MG TAB PO SCH (20:40)
[2022-06-21] MEDS: INSULIN DETEMIR (LEVEMIR) 100 UNIT/ML SYR SQ SCH (20:43)
--- NOTE | 2022-06-21 21:27 | P.PN ---
Subjective Progress Note Date: 06/21/22 Principal diagnosis: Left fifth toe diabetic foot infection Patient is a 36-year-old male with a past medical history significant for diabetes mellitus and diabetic foot infection presented to the hospital with left fifth toe pain swelling redness and drainage. Patient is status post amputation of the left fifth toe per vascular surgery On today's evaluation that is 06/21/2022, the patient remains to be afebrile, patient pain to the left fifth toe amputation site is controlled. The patient denies having any chest pain shortness of breath or cough no abdominal pain Objective - Vital Signs Vital signs: Vital Signs Temp 98.2 F 06/21/22 07:19 Pulse 91 06/21/22 07:19 Resp 16 06/21/22 07:19 BP 103/65 06/21/22 07:19 Pulse Ox 93 L 06/21/22 07:19 FiO2 Intake & Output 06/20/22 06/21/22 06/21/22 18:59 06:59 18:59 Intake Total 300 730 250 Output Total 10 Balance 290 730 250 Intake: IV 300 Intake, IV Titration 250 250 Amount Vancomycin 1,250 mg In 250 250 Sodium Chloride 0.9% 250 ml @ 125 mls/hr IVPB Q8H [facility] Rx#:[id number] Oral 480 Output: Estimated Blood Loss 10 Other: # Voids 2 4 - Exam GENERAL DESCRIPTION: A middle-age male lying in bed in no distress RESPIRATORY SYSTEM: Unlabored breathing , decreased breath sounds at bases HEART: S1 S2 regular rate and rhythm , ABDOMEN: Soft , no tenderness EXTREMITIES: Left foot is currently dressed, no drainage on the dressing - Labs CBC & Chem 7: 06/21/22 06:26 06/21/22 06:26 Labs: Abnormal Lab Results - Last 24 Hours (Table) 06/20/22 06/21/22 06/21/22 Range/Units 15:40 01:36 06:26 WBC (4.50-10.00) X 10*3/uL RBC (4.40-5.60) X 10*6/uL Hgb (13.0-17.0) g/dL Hct (39.6-50.0) % Neutrophils # (1.80-7.70) X 10*3/uL Monocytes # (0.20-1.00) X 10*3/uL BUN 7.9 L (9.0-27.0) mg/dL BUN/Creatinine Ratio 11.45 L (12.00-20.00) Ratio Glucose 169 H (70-110) mg/dL POC Glucose (mg/dL) 179 H 249 H (70-110) mg/dL 06/21/22 Range/Units 06:26 WBC 12.92 H (4.50-10.00) X 10*3/uL RBC 3.81 L (4.40-5.60) X 10*6/uL Hgb 11.4 L (13.0-17.0) g/dL Hct 35.1 L (39.6-50.0) % Neutrophils # 9.92 H (1.80-7.70) X 10*3/uL Monocytes # 1.15 H (0.20-1.00) X 10*3/uL BUN (9.0-27.0) mg/dL BUN/Creatinine Ratio (12.00-20.00) Ratio Glucose (70-110) mg/dL POC Glucose (mg/dL) (70-110) mg/dL Microbiology - Last 24 Hours (Table) 06/19/22 10:25 Blood Culture - Preliminary Blood No Growth after 48 hours 06/19/22 10:10 Blood Culture - Preliminary Blood No Growth after 48 hours 06/19/22 11:15 Gram Stain - Final Foot - Left Wound Culture - Final Staphylococcus aureus Assessment and Plan (1) Diabetic infection of left foot Current Visit: Yes Status: Acute Code(s): E11.628 - TYPE 2 DIABETES MELLITUS WITH OTHER SKIN COMPLICATIONS; L08.9 - LOCAL INFECTION OF THE SKIN AND SUBCUTANEOUS TISSUE, UNSP SNOMED Code(s): 73675822 Plan: 1patient was in the hospital with extensive left diabetic foot infection patient involving the left fifth toe in this patient who did have ulceration both on the lateral and the plantar aspect and is draining pus concerning for underlying abscess keeping in mind his diabetes will need to cover for gram- positive as well as gram-negative pathogen 2-penicillin allergy that would limit the number of antibiotics safe to use 3- CT of the left foot did not show any abscess 4-patient has been evaluated by vascular surgery and is status post amputation of the left fifth toe 5local cultures currently growing mssa, we would discontinue vancomycin and cefepime start the patient on cefazolin 2 g every 8 hours and oral flagyl Time with Patient: Less than 30
[2022-06-22] MEDS: HYDROcodone/APAP 5-325MG 1 EACH TAB PO PRN ×2 (01:27→19:18)
[2022-06-22] MEDS: HYDROmorphone 1 MG/ML 1 ML SYRINGE IVP PRN ×6 (04:06→22:21)
[2022-06-22] MEDS: SYMBICORT 80-4.5 MCG INHALER INHALATION SCH ×2 (07:48→20:10)
[2022-06-22] MEDS: ALBUTEROL HFA INHALER INHALATION PRN ×4 (07:48→20:10)
[2022-06-22] MEDS: CHOLECALCIFEROL 125 MCG (5000 IU) TABLET PO SCH (08:27)
[2022-06-22] MEDS: SERTRALINE 100 MG TAB PO SCH (08:27)
[2022-06-22] MEDS: metroNIDAZOLE 500 MG TAB PO SCH ×3 (08:27→20:20)
[2022-06-22] MEDS: GABAPENTIN 400 MG CAP PO SCH ×3 (08:27→20:19)
[2022-06-22] MEDS: MONTELUKAST 10 MG TAB PO SCH (08:27)
[2022-06-22] MEDS: FAMOTIDINE 20 MG TAB PO SCH ×2 (08:27→20:19)
[2022-06-22] MEDS: METOCLOPRAMIDE 5 MG TAB PO SCH ×2 (08:27→20:19)
[2022-06-22] MEDS: LORATADINE 10 MG TAB PO SCH (08:27)
[2022-06-22] MEDS: LOSARTAN 25 MG TAB PO SCH (08:28)
[2022-06-22] MEDS: Insulin Aspart (For Pump) 100 UNIT/ML VIAL SQ-PUMP SCH (08:28)
[2022-06-22] MEDS: HEPARIN SODIUM,PORCINE/PF 5,000 UNIT/0.5 ML SYRINGE SQ SCH ×2 (08:28→20:20)
[2022-06-22 09:00] LABS: African American GFR (CKD) 142.2 (60.0-200.0); Non-African American GFR(CKD) 122.7 (60.0-200.0)
--- NOTE | 2022-06-22 12:05 | P.PN ---
Subjective Progress Note Date: 06/22/22 This is a pleasant 36-year-old male with significant past medical history of diabetes with concerns for diabetic foot ulcer on the left with infection. Patient is being closely monitored with infectious disease and vascular surgery following an undergoing bone scan currently. Patient is tentatively scheduled for debridement of the ulcer with possible amputation of the fifth digit. Patient is a brittle diabetic and reports has had history of ulcers in the past. Patient does use a pump to monitor sugars closely. Recommend before meals at bedtime monitoring and okay to use patient's device for documentation of blood sugar readings. Patient is currently afebrile denies chest pain or shortness of breath. Patient is currently nothing by mouth as patient is tentatively scheduled for debridement with amputation with Dr. Luu today. Will await surgical report. Patient is also continued on antibiotics with infectious disease following. 06/22/2022 Patient is seen in follow-up today status post vascular surgery intervention of the left foot with amputation of the pinky toe and debridement of the ulcer in closely monitored. Patient is continued on wound care and Dr. Luu will redr ess the left foot on Thursday. Patient is continued on IV antibiotics with infectious disease following closely and culture showing MSSA and being transitioned to IV cefazolin along with oral Flagyl. Will discuss further with infectious disease about discharge planning and if requiring IV antibiotic therapy. Patient is currently afebrile denies chest pain or shortness of breath. Blood sugars being closely monitored with patient's own insulin pump and glucose meter. Patient to increase activity as tolerated while remaining nonweightbearing on that left lower extremity until evaluated by vascular surgery. Review of systems: Constitutional: No reports of fatigue, fever, or chills Cardiovascular: No reports of chest pain or palpitations Respiratory: No reports of shortness of breath or cough GI: no reports of nausea, no reports of vomiting, no diarrhea : No reports of dysuria or retention Neurovascular: reports of generalized weakness, reports left foot pain All medications have been reviewed Active Medications Acetaminophen (Acetaminophen Tab 325 Mg Tab) 650 mg PO Q6HR PRN PRN Reason: Mild Pain or Fever > 100.5 Hydrocodone Bitart/Acetaminophen (Hydrocodone/Apap 5-325mg 1 Each Tab) 1 each PO Q6HR PRN PRN Reason: Pain Last Admin: 06/22/22 01:27 Dose: 1 each Albuterol Sulfate (Albuterol Hfa Inhaler) 2 puff INHALATION RT-Q6H PRN PRN Reason: Shortness Of Breath Last Admin: 06/22/22 11:25 Dose: 2 puff Amitriptyline HCl (Amitriptyline Hcl 10 Mg Tab) 10 mg PO HS [facility] Last Admin: 06/21/22 20:40 Dose: 10 mg Budesonide/Formoterol Fumarate (Symbicort 80-4.5 Mcg Inhaler) 2 puff INHALATION RT-BID [facility] Last Admin: 06/22/22 07:48 Dose: 2 puff Cholecalciferol (Cholecalciferol 125 Mcg (5000 Iu) Tablet) 125 mcg PO DAILY [facility] Last Admin: 06/22/22 08:27 Dose: 125 mcg Famotidine (Famotidine 20 Mg Tab) 20 mg PO BID [facility] Last Admin: 06/22/22 08:27 Dose: 20 mg Gabapentin (Gabapentin 400 Mg Cap) 800 mg PO TID [facility] Last Admin: 06/22/22 08:27 Dose: 800 mg Heparin Sodium (Porcine) (Heparin Sodium,Porcine/Pf 5,000 Unit/0.5 Ml Syringe) 5,000 unit SQ Q12HR [facility] Last Admin: 06/22/22 08:28 Dose: 5,000 unit Hydromorphone HCl (Hydromorphone 0.5 Mg/0.5 Ml Syringe) 0.5 mg IVP Q3HR PRN PRN Reason: Moderate Pain (Scale 4 to 6) Hydromorphone HCl (Hydromorphone 1 Mg/Ml 1 Ml Syringe) 1 mg IVP Q3HR PRN PRN Reason: Severe Pain (Scale 7 to 10) Last Admin: 06/22/22 08:37 Dose: 1 mg Cefazolin Sodium 2 gm/ Sodium (Chloride) 50 mls @ 100 mls/hr IVPB Q8HR [facility]; Protocol Last Admin: 06/22/22 08:27 Dose: 100 mls/hr Insulin Aspart (Insulin Aspart (For Pump) 100 Unit/Ml Vial) 0.01 unit SQ-PUMP CONTINUOUS [facility] Last Admin: 06/22/22 08:28 Dose: 0.01 unit Insulin Detemir (Insulin Detemir (Levemir) 100 Unit/Ml Syr) 30 unit SQ HS [facility] Last Admin: 06/21/22 20:43 Dose: Not Given Ketorolac Tromethamine (Ketorolac 15 Mg/Ml 1 Ml Vial) 15 mg IVP Q6HR PRN PRN Reason: Moderate Pain (Scale 4 to 6) Stop: 06/22/22 12:20 Loratadine (Loratadine 10 Mg Tab) 10 mg PO DAILY [facility] Last Admin: 06/22/22 08:27 Dose: 10 mg Losartan Potassium (Losartan 25 Mg Tab) 12.5 mg PO DAILY [facility] Last Admin: 06/22/22 08:28 Dose: Not Given Metoclopramide HCl (Metoclopramide 5 Mg Tab) 5 mg PO BID [facility] Last Admin: 06/22/22 08:27 Dose: 5 mg Metronidazole (Metronidazole 500 Mg Tab) 500 mg PO TID [facility]; Protocol Last Admin: 06/22/22 08:27 Dose: 500 mg Montelukast Sodium (Montelukast 10 Mg Tab) 10 mg PO DAILY [facility] Last Admin: 06/22/22 08:27 Dose: 10 mg Naloxone HCl (Naloxone 0.4 Mg/Ml 1 Ml Vial) 0.2 mg IV Q2M PRN PRN Reason: Opioid Reversal Ondansetron HCl (Ondansetron 4 Mg/2 Ml Vial) 4 mg IVP Q8HR PRN PRN Reason: Nausea And Vomiting Sertraline HCl (Sertraline 100 Mg Tab) 100 mg PO DAILY [facility] Last Admin: 06/22/22 08:27 Dose: 100 mg Trazodone HCl (Trazodone Hcl 100 Mg Tab) 100 mg PO HS [facility] Last Admin: 06/21/22 20:40 Dose: 100 mg PHYSICAL EXAMINATION: GENERAL: The patient is alert and oriented x4, Well developed, well nourished. HEENT: Pupils are round and equally reacting to light. EOMI. no scleral icterus. No conjunctival pallor. Normocephalic, atraumatic. No pharyngeal erythema. No thyromegaly. CARDIOVASCULAR: S1 and S2 muffled PULMONARY: diminished breath sounds bilaterally with no wheezing or rhonchi noted. ABDOMEN: soft. Nontender on exam. non-distended, normoactive bowel sounds. No palpable organomegaly. MUSCULOSKELETAL: No joint swelling or deformity. EXTREMITIES: No cyanosis, clubbing, or pedal edema. Left foot currently dressed NEUROLOGICAL: Gross neurological examination did not reveal any focal deficits. SKIN: No rashes. Assessment: Acute diabetic foot ulcer of the left with osteomyelitis, status post left fifth toe amputation with debridement Diabetes mellitus, type II, insulin-dependent, uncontrolled with hyperglycemia Hypertension History of chronic kidney disease History of anxiety/bipolar depression GI prophylaxis DVT prophylaxis Full code Plan: Recommend to continue with current medications and management Vascular surgery and infectious disease following. Vascular surgery Dr. Luu following and patient underwent left fifth toe digit amputation with debridement of the ulcer. Recommending wound care, continued antibiotics, and dressing changes on Thursday Bone scan is suggestive of osteomyelitis with cellulitis Patient does have an insulin pump along with the blood glucose monitor and okay to use patient's readings for documentation of blood sugar readings. Recommend before meals at bedtime and will continue with current insulin regimen Will need to discuss further with infectious disease about discharge antibiotics and if requiring IV antibiotic therapy. Culture showing MSSA and switched to cefazolin and oral Flagyl Recommend continue with local wound care and increased activity as tolerated with restrictions per vascular surgery Prognosis is guarded Possible discharge in the next 24-48 hours. The impression and plan of care has been dictated as a scribe by Loyda Chang, nurse practitioner as directed. Dr. My MD I have performed a history and examination and MDM of this patient, discussed the same with the dictator, and will be documented as a scribe. Based on total visit time, I have performed more than 50% of the visit. Any additional findings or plans will be noted. Objective - Vital Signs Vital signs: Vital Signs Temp 99.2 F 06/22/22 07:12 Pulse 92 06/22/22 07:12 Resp 16 06/22/22 07:12 BP 100/63 06/22/22 07:12 Pulse Ox 94 L 06/22/22 07:12 FiO2 Intake & Output 06/21/22 06/22/22 06/22/22 18:59 06:59 18:59 Intake Total 250 1490 354 Balance 250 1490 354 Intake: Intake, IV Titration 250 50 Amount Vancomycin 1,250 mg In 250 Sodium Chloride 0.9% 250 ml @ 125 mls/hr IVPB Q8H [facility] Rx#:[id number] ceFAZolin 2 gm In Sodium 50 Chloride 0.9% 50 ml @ 100 mls/hr IVPB Q8HR [facility] Rx# :[id number] Oral 1440 354 Other: # Voids 4 - Labs CBC & Chem 7: 06/21/22 06:26 06/22/22 06:18 Labs: Microbiology - Last 24 Hours (Table) 06/19/22 11:15 Anaerobic Culture - Preliminary Foot - Left 06/19/22 10:25 Blood Culture - Preliminary Blood No Growth after 48 hours 06/19/22 10:10 Blood Culture - Preliminary Blood No Growth after 48 hours 06/19/22 11:15 Gram Stain - Final Foot - Left Wound Culture - Final Staphylococcus aureus
[2022-06-22] MEDS: ONDANSETRON 4 MG/2 ML VIAL IVP PRN (17:19)
[2022-06-22] MEDS: AMITRIPTYLINE HCL 10 MG TAB PO SCH (20:19)
[2022-06-22] MEDS: traZODone HCL 100 MG TAB PO SCH (20:20)
[2022-06-22] MEDS: INSULIN DETEMIR (LEVEMIR) 100 UNIT/ML SYR SQ SCH (20:22)
--- NOTE | 2022-06-22 21:42 | P.PN ---
Subjective Progress Note Date: 06/22/22 Principal diagnosis: Left fifth toe diabetic foot infection Patient is a 36-year-old male with a past medical history significant for diabetes mellitus and diabetic foot infection presented to the hospital with left fifth toe pain swelling redness and drainage. Patient is status post amputation of the left fifth toe per vascular surgery On today's evaluation that is 06/22/2022, the patient continues to be afebrile, patient pain to the left fifth toe amputation site is controlled with current pain medication. The patient denies having any chest pain shortness of breath or cough no abdominal pain or diarrhea Objective - Vital Signs Vital signs: Vital Signs Temp 99.2 F 06/22/22 07:12 Pulse 92 06/22/22 07:12 Resp 16 06/22/22 07:12 BP 100/63 06/22/22 07:12 Pulse Ox 94 L 06/22/22 07:12 FiO2 Intake & Output 06/21/22 06/22/22 06/22/22 18:59 06:59 18:59 Intake Total 250 1490 354 Balance 250 1490 354 Intake: Intake, IV Titration 250 50 Amount Vancomycin 1,250 mg In 250 Sodium Chloride 0.9% 250 ml @ 125 mls/hr IVPB Q8H [facility] Rx#:[id number] ceFAZolin 2 gm In Sodium 50 Chloride 0.9% 50 ml @ 100 mls/hr IVPB Q8HR [facility] Rx# :[id number] Oral 1440 354 Other: # Voids 4 - Exam GENERAL DESCRIPTION: A middle-age male lying in bed in no distress RESPIRATORY SYSTEM: Unlabored breathing , decreased breath sounds at bases HEART: S1 S2 regular rate and rhythm , ABDOMEN: Soft , no tenderness EXTREMITIES: Left foot is currently dressed, no drainage on the dressing - Labs CBC & Chem 7: 06/21/22 06:26 06/22/22 06:18 Labs: Microbiology - Last 24 Hours (Table) 06/19/22 11:15 Anaerobic Culture - Preliminary Foot - Left 06/19/22 10:25 Blood Culture - Preliminary Blood No Growth after 48 hours 06/19/22 10:10 Blood Culture - Preliminary Blood No Growth after 48 hours 06/19/22 11:15 Gram Stain - Final Foot - Left Wound Culture - Final Staphylococcus aureus Assessment and Plan (1) Diabetic infection of left foot Current Visit: Yes Status: Acute Code(s): E11.628 - TYPE 2 DIABETES MELLITUS WITH OTHER SKIN COMPLICATIONS; L08.9 - LOCAL INFECTION OF THE SKIN AND SUBCUTANEOUS TISSUE, UNSP SNOMED Code(s): 14131762 Plan: 1patient was in the hospital with extensive left diabetic foot infection patient involving the left fifth toe in this patient who did have ulceration both on the lateral and the plantar aspect and is draining pus concerning for underlying abscess keeping in mind his diabetes will need to cover for gram- positive as well as gram-negative pathogen 2-penicillin allergy that would limit the number of antibiotics safe to use 3- CT of the left foot did not show any abscess 4-patient has been evaluated by vascular surgery and is status post amputation of the left fifth toe with resultant open wound 5local cultures currently growing mssa, patient to continue with cefazolin 2 g every 8 hours and oral flagyl, will need a PICC line for outpatient IV antibiotic therapy discussed the case with the vascular surgeon Time with Patient: Less than 30
[2022-06-23] MEDS: HYDROcodone/APAP 5-325MG 1 EACH TAB PO PRN ×3 (01:32→20:26)
[2022-06-23] MEDS: HYDROmorphone 1 MG/ML 1 ML SYRINGE IVP PRN ×5 (01:33→19:12)
[2022-06-23] MEDS: GABAPENTIN 400 MG CAP PO SCH ×3 (08:16→20:20)
[2022-06-23] MEDS: LOSARTAN 25 MG TAB PO SCH (08:16)
[2022-06-23] MEDS: METOCLOPRAMIDE 5 MG TAB PO SCH ×3 (08:16→20:19)
[2022-06-23] MEDS: MONTELUKAST 10 MG TAB PO SCH (08:16)
[2022-06-23] MEDS: LORATADINE 10 MG TAB PO SCH (08:17)
[2022-06-23] MEDS: FAMOTIDINE 20 MG TAB PO SCH ×2 (08:17→20:20)
[2022-06-23] MEDS: CHOLECALCIFEROL 125 MCG (5000 IU) TABLET PO SCH (08:17)
[2022-06-23] MEDS: HEPARIN SODIUM,PORCINE/PF 5,000 UNIT/0.5 ML SYRINGE SQ SCH ×2 (08:17→20:20)
[2022-06-23] MEDS: metroNIDAZOLE 500 MG TAB PO SCH ×3 (08:17→20:19)
[2022-06-23] MEDS: SERTRALINE 100 MG TAB PO SCH (08:18)
[2022-06-23] MEDS: COLLAGENASE 250 UNIT/GM OINTMENT 30 GM TUBE TOPICAL SCH (08:47)
[2022-06-23] MEDS: SYMBICORT 80-4.5 MCG INHALER INHALATION SCH ×2 (09:03→20:22)
[2022-06-23] MEDS: ALBUTEROL HFA INHALER INHALATION PRN ×4 (09:03→20:22)
[2022-06-23 09:16] LABS: African American GFR (CKD) 141.6 (60.0-200.0); Non-African American GFR(CKD) 122.2 (60.0-200.0)
--- NOTE | 2022-06-23 11:29 | P.PN ---
Subjective Progress Note Date: 06/23/22 Principal diagnosis: Left fifth toe diabetic foot infection Patient is a 36-year-old male with a past medical history significant for diabetes mellitus and diabetic foot infection presented to the hospital with left fifth toe pain swelling redness and drainage. Patient is status post amputation of the left fifth toe per vascular surgery On today's evaluation that is 06/23/2022, the patient remains to be afebrile, patient pain to the left fifth toe amputation site is controlled , the patient denies having any chest pain shortness of breath or cough however now co mplaining of nausea and did have vomiting 2 yesterday and did not eat his breakfast this morning Objective - Vital Signs Vital signs: Vital Signs Temp 98.2 F 06/23/22 07:29 Pulse 92 06/23/22 07:29 Resp 17 06/23/22 07:29 BP 100/63 06/23/22 07:29 Pulse Ox 92 L 06/23/22 07:29 FiO2 Intake & Output 06/22/22 06/23/22 06/23/22 18:59 06:59 18:59 Intake Total 522 390 Output Total 100 Balance 422 390 Intake: Intake, IV Titration 50 50 Amount ceFAZolin 2 gm In Sodium 50 50 Chloride 0.9% 50 ml @ 100 mls/hr IVPB Q8HR [facility] Rx# :[id number] Oral 472 340 Output: Emesis 100 Other: # Voids 2 - Exam GENERAL DESCRIPTION: A middle-age male lying in bed in no distress RESPIRATORY SYSTEM: Unlabored breathing , decreased breath sounds at bases HEART: S1 S2 regular rate and rhythm , ABDOMEN: Soft , no tenderness EXTREMITIES: Left foot is currently dressed, no drainage on the dressing - Labs CBC & Chem 7: 06/21/22 06:26 06/23/22 04:58 Labs: Microbiology - Last 24 Hours (Table) 06/19/22 10:10 Blood Culture - Preliminary Blood No Growth after 72 hours 06/19/22 10:25 Blood Culture - Preliminary Blood No Growth after 72 hours Assessment and Plan (1) Diabetic infection of left foot Current Visit: Yes Status: Acute Code(s): E11.628 - TYPE 2 DIABETES MELLITUS WITH OTHER SKIN COMPLICATIONS; L08.9 - LOCAL INFECTION OF THE SKIN AND SUBCUTANEOUS TISSUE, UNSP SNOMED Code(s): 27839222 Plan: 1patient was in the hospital with extensive left diabetic foot infection patient involving the left fifth toe in this patient who did have ulceration both on the lateral and the plantar aspect and is draining pus concerning for underlying abscess keeping in mind his diabetes will need to cover for gram- positive as well as gram-negative pathogen 2-penicillin allergy that would limit the number of antibiotics safe to use 3- CT of the left foot did not show any abscess 4-patient has been evaluated by vascular surgery and is status post amputation of the left fifth toe with resultant open wound 5the patient local wound culture did grew MSSA, patient to continue with the cefazolin will get a PICC line for outpatient antibiotic therapy Time with Patient: Less than 30
[2022-06-23 11:31] VITALS: BMI 19.6
[2022-06-23] MEDS: Insulin Aspart (For Pump) 100 UNIT/ML VIAL SQ-PUMP SCH (12:16)
[2022-06-23] MEDS: ONDANSETRON 4 MG/2 ML VIAL IVP PRN (13:32)
[2022-06-23] MEDS: INSULIN DETEMIR (LEVEMIR) 100 UNIT/ML SYR SQ SCH (20:08)
[2022-06-23] MEDS: traZODone HCL 100 MG TAB PO SCH (20:20)
[2022-06-23] MEDS: AMITRIPTYLINE HCL 10 MG TAB PO SCH (21:41)
[2022-06-24] MEDS: HYDROmorphone 1 MG/ML 1 ML SYRINGE IVP PRN ×2 (00:59→07:19)
--- NOTE | 2022-06-24 02:15 | P.PN ---
Subjective Progress Note Date: 06/23/22 This is a pleasant 36-year-old male with significant past medical history of diabetes with concerns for diabetic foot ulcer on the left with infection. Patient is being closely monitored with infectious disease and vascular surgery following an undergoing bone scan currently. Patient is tentatively scheduled for debridement of the ulcer with possible amputation of the fifth digit. Patient is a brittle diabetic and reports has had history of ulcers in the past. Patient does use a pump to monitor sugars closely. Recommend before meals at bedtime monitoring and okay to use patient's device for documentation of blood sugar readings. Patient is currently afebrile denies chest pain or shortness of breath. Patient is currently nothing by mouth as patient is tentatively scheduled for debridement with amputation with Dr. Luu today. Will await surgical report. Patient is also continued on antibiotics with infectious disease following. 06/22/2022 Patient is seen in follow-up today status post vascular surgery intervention of the left foot with amputation of the pinky toe and debridement of the ulcer in closely monitored. Patient is continued on wound care and Dr. Luu will redr ess the left foot on Thursday. Patient is continued on IV antibiotics with infectious disease following closely and culture showing MSSA and being transitioned to IV cefazolin along with oral Flagyl. Will discuss further with infectious disease about discharge planning and if requiring IV antibiotic therapy. Patient is currently afebrile denies chest pain or shortness of breath. Blood sugars being closely monitored with patient's own insulin pump and glucose meter. Patient to increase activity as tolerated while remaining nonweightbearing on that left lower extremity until evaluated by vascular surgery. 06/23/2022 Patient is seen and evaluated in follow-up today and reports he has been having episodes of vomiting since last night with dinner. Patient does regularly take Reglan and will increase the dose and continue Zofran as needed. Discussed with patient about limiting IV narcotic use and will adjust medications. Infectious disease following an antibiotics have been changed to cefazolin and oral Flagyl. Patient will require a PICC line which has been ordered and not able to be placed today per dye lab technician. Will order pelvic for tomorrow. Patient is currently afebrile denies chest pain or shortness of breath. Patient reports continued nausea with vomiting and not much of an appetite today. Recommend repeat labs in a.m. Review of systems: Constitutional: No reports of fatigue, fever, or chills Cardiovascular: No reports of chest pain or palpitations Respiratory: No reports of shortness of breath or cough GI: reports of nausea, with vomiting, no diarrhea : No reports of dysuria or retention Neurovascular: reports of generalized weakness, reports left foot pain All medications have been reviewed Active Medications Acetaminophen (Acetaminophen Tab 325 Mg Tab) 650 mg PO Q6HR PRN PRN Reason: Mild Pain or Fever > 100.5 Hydrocodone Bitart/Acetaminophen (Hydrocodone/Apap 5-325mg 1 Each Tab) 1 each PO Q6HR PRN PRN Reason: Pain Last Admin: 06/23/22 01:32 Dose: 1 each Albuterol Sulfate (Albuterol Hfa Inhaler) 2 puff INHALATION RT-Q6H PRN PRN Reason: Shortness Of Breath Last Admin: 06/23/22 09:03 Dose: 2 puff Amitriptyline HCl (Amitriptyline Hcl 10 Mg Tab) 10 mg PO HS [facility] Last Admin: 06/22/22 20:19 Dose: 10 mg Budesonide/Formoterol Fumarate (Symbicort 80-4.5 Mcg Inhaler) 2 puff INHALATION RT-BID [facility] Last Admin: 06/23/22 09:03 Dose: 2 puff Cholecalciferol (Cholecalciferol 125 Mcg (5000 Iu) Tablet) 125 mcg PO DAILY [facility] Last Admin: 06/23/22 08:17 Dose: 125 mcg Collagenase (Collagenase 250 Unit/Gm Ointment 30 Gm Tube) 1 applic TOPICAL DAILY [facility]; Protocol Last Admin: 06/23/22 08:47 Dose: 1 applic Famotidine (Famotidine 20 Mg Tab) 20 mg PO BID [facility] Last Admin: 06/23/22 08:17 Dose: 20 mg Gabapentin (Gabapentin 400 Mg Cap) 800 mg PO TID [facility] Last Admin: 06/23/22 08:16 Dose: 800 mg Heparin Sodium (Porcine) (Heparin Sodium,Porcine/Pf 5,000 Unit/0.5 Ml Syringe) 5,000 unit SQ Q12HR [facility] Last Admin: 06/23/22 08:17 Dose: 5,000 unit Hydromorphone HCl (Hydromorphone 0.5 Mg/0.5 Ml Syringe) 0.5 mg IVP Q3HR PRN PRN Reason: Moderate Pain (Scale 4 to 6) Hydromorphone HCl (Hydromorphone 1 Mg/Ml 1 Ml Syringe) 1 mg IVP Q3HR PRN PRN Reason: Severe Pain (Scale 7 to 10) Last Admin: 06/23/22 08:27 Dose: 1 mg Cefazolin Sodium 2 gm/ Sodium (Chloride) 50 mls @ 100 mls/hr IVPB Q8HR [facility]; Protocol Last Admin: 06/23/22 08:20 Dose: 100 mls/hr Insulin Aspart (Insulin Aspart (For Pump) 100 Unit/Ml Vial) 0.01 unit SQ-PUMP CONTINUOUS [facility] Last Admin: 06/22/22 08:28 Dose: 0.01 unit Insulin Detemir (Insulin Detemir (Levemir) 100 Unit/Ml Syr) 30 unit SQ HS [facility] Last Admin: 06/22/22 20:22 Dose: Not Given Loratadine (Loratadine 10 Mg Tab) 10 mg PO DAILY [facility] Last Admin: 06/23/22 08:17 Dose: 10 mg Losartan Potassium (Losartan 25 Mg Tab) 12.5 mg PO DAILY [facility] Last Admin: 06/23/22 08:16 Dose: Not Given Metoclopramide HCl (Metoclopramide 5 Mg Tab) 5 mg PO BID [facility] Last Admin: 06/23/22 08:16 Dose: 5 mg Metronidazole (Metronidazole 500 Mg Tab) 500 mg PO TID [facility]; Protocol Last Admin: 06/23/22 08:17 Dose: 500 mg Montelukast Sodium (Montelukast 10 Mg Tab) 10 mg PO DAILY [facility] Last Admin: 06/23/22 08:16 Dose: 10 mg Naloxone HCl (Naloxone 0.4 Mg/Ml 1 Ml Vial) 0.2 mg IV Q2M PRN PRN Reason: Opioid Reversal Ondansetron HCl (Ondansetron 4 Mg/2 Ml Vial) 4 mg IVP Q8HR PRN PRN Reason: Nausea And Vomiting Last Admin: 06/22/22 17:19 Dose: 4 mg Sertraline HCl (Sertraline 100 Mg Tab) 100 mg PO DAILY [facility] Last Admin: 06/23/22 08:18 Dose: 100 mg Trazodone HCl (Trazodone Hcl 100 Mg Tab) 100 mg PO [facility] Last Admin: 06/22/22 20:20 Dose: 100 mg PHYSICAL EXAMINATION: GENERAL: The patient is alert and oriented x4, Well developed, well nourished. HEENT: Pupils are round and equally reacting to light. EOMI. no scleral icterus. No conjunctival pallor. Normocephalic, atraumatic. No pharyngeal erythema. No thyromegaly. CARDIOVASCULAR: S1 and S2 muffled PULMONARY: diminished breath sounds bilaterally with no wheezing or rhonchi noted. ABDOMEN: soft. Nontender on exam. non-distended, normoactive bowel sounds. No palpable organomegaly. MUSCULOSKELETAL: No joint swelling or deformity. EXTREMITIES: No cyanosis, clubbing, or pedal edema. Left foot currently dressed NEUROLOGICAL: Gross neurological examination did not reveal any focal deficits. SKIN: No rashes. Assessment: Acute diabetic foot ulcer of the left with osteomyelitis, status post left fifth toe amputation with debridement Diabetes mellitus, type II, insulin-dependent, uncontrolled with hyperglycemia Hypertension History of chronic kidney disease History of anxiety/bipolar depression GI prophylaxis DVT prophylaxis Full code Plan: Recommend to continue with current medications and management Vascular surgery and infectious disease following. Vascular surgery Dr. Luu following and patient underwent left fifth toe digit amputation with debridement of the ulcer. Recommending wound care, continued antibiotics, and dressing changes sometime today Bone scan is suggestive of osteomyelitis with cellulitis and patient will be receiving a PICC line for continued IV antibiotics in the outpatient setting Patient does have an insulin pump along with the blood glucose monitor and okay to use patient's readings for documentation of blood sugar readings. Recommend before meals at bedtime and will continue with current insulin regimen Patient reports has been vomiting and will continue Zofran and increased Reglan dosing Recommend continue with local wound care and increased activity as tolerated with restrictions per vascular surgery Prognosis is guarded Possible discharge in the next 24-48 hours. The impression and plan of care has been dictated as a scribe by Loyda Chang, nurse practitioner as directed. MD Larisa I have performed a history and examination and MDM of this patient, discussed the same with the dictator, and will be documented as a scribe. Based on total visit time, I have performed more than 50% of the visit. Any additional findings or plans will be noted. Objective - Vital Signs Vital signs: Vital Signs Temp 98.2 F 06/23/22 07:29 Pulse 92 06/23/22 07:29 Resp 17 06/23/22 07:29 BP 100/63 06/23/22 07:29 Pulse Ox 92 L 06/23/22 07:29 FiO2 Intake & Output 06/22/22 06/23/22 06/23/22 18:59 06:59 18:59 Intake Total 522 390 Output Total 100 Balance 422 390 Intake: Intake, IV Titration 50 50 Amount ceFAZolin 2 gm In Sodium 50 50 Chloride 0.9% 50 ml @ 100 mls/hr IVPB Q8HR [facility] Rx# :[id number] Oral 472 340 Output: Emesis 100 Other: # Voids 2 - Labs CBC & Chem 7: 06/21/22 06:26 06/23/22 04:58 Labs: Microbiology - Last 24 Hours (Table) 06/19/22 10:10 Blood Culture - Preliminary Blood No Growth after 72 hours 06/19/22 10:25 Blood Culture - Preliminary Blood No Growth after 72 hours
[2022-06-24] MEDS: HYDROcodone/APAP 5-325MG 1 EACH TAB PO PRN ×2 (06:12→12:08)
--- NOTE | 2022-06-24 07:14 | PN ---
PROGRESS NOTE This is a 36-year-old diabetic male who came with infected wound, left plantar aspect of the lateral foot involving the fifth metatarsophalangeal joint. The patient had a ray amputation. The patient's culture came back as Staph aureus. The patient is under care of Infectious Disease for IV antibiotic. Today, we have changed the dressing. We used Santyl cream and the base of the wound is granulating. We will use Santyl cream daily. The dressing was changed tomorrow. The patient is nonweightbearing. MMODL / IJN: [id number] /
[2022-06-24] MEDS: SERTRALINE 100 MG TAB PO SCH (07:48)
[2022-06-24] MEDS: metroNIDAZOLE 500 MG TAB PO SCH ×2 (07:49→15:48)
[2022-06-24] MEDS: LORATADINE 10 MG TAB PO SCH (07:50)
[2022-06-24] MEDS: METOCLOPRAMIDE 5 MG TAB PO SCH ×2 (07:50→15:48)
[2022-06-24] MEDS: CHOLECALCIFEROL 125 MCG (5000 IU) TABLET PO SCH (07:50)
[2022-06-24] MEDS: LOSARTAN 25 MG TAB PO SCH (07:50)
[2022-06-24] MEDS: GABAPENTIN 400 MG CAP PO SCH ×2 (07:51→15:48)
[2022-06-24] MEDS: HEPARIN SODIUM,PORCINE/PF 5,000 UNIT/0.5 ML SYRINGE SQ SCH (07:52)
[2022-06-24] MEDS: FAMOTIDINE 20 MG TAB PO SCH (07:52)
[2022-06-24] MEDS: MONTELUKAST 10 MG TAB PO SCH (07:54)
[2022-06-24 08:01] VITALS: BP 109/67; PULSE 102; RESP 16; TEMP 97.7
[2022-06-24] MEDS: SYMBICORT 80-4.5 MCG INHALER INHALATION SCH (09:27)
[2022-06-24] MEDS ORDERED: LIDOCAINE 1% INJ 10MG/ML (5 ML VIAL-PF) SQ ONE (09:32)
--- NOTE | 2022-06-24 10:11 | IR ---
PICC LINE PLACEMENT: HISTORY: Infection requiring long-term antibiotic therapy PROCEDURE: Ultrasound and fluoroscopic guidance of PICC line placement. COMPLICATIONS: None ANESTHESIA: 1. 1% Lidocaine locally. FINDINGS/TECHNIQUE: The procedure was explained to the patient. The risks, complications, benefits and alternatives were discussed and any questions were answered. Informed consent was obtained. The patient was placed supine on the fluoroscopic table and prepped and draped in the usual sterile fash ion. Utilizing a 21 gauge needle and sonographic and fluoroscopic guidance, access in the left basi lic vein was achieved and there is placement of a 0.018 guidewire. The vein is patent. A 4-F sheath was placed over the guidewire. The guidewire and dilator were removed and a 4-F. PICC line was plac ed through the sheath with the tip at the level of the SVC. The sheath was removed, the catheter was flushed and sutured into position. The patient was stable throughout the procedure and remained sta ble upon discharge from the Department of Radiology. The vein puncture was patent under ultrasound. A alonso scale image was obtained to document patency of the vein punctured. All elements of the maximal barrier technique were utilized. FLUOROSCOPY TIME: DAP and 0.0131 IMPRESSION: Successful PICC line placement under ultrasound and fluoroscopic guidance.
[2022-06-24 10:41] LABS: Basophils # (A) 0.05 X 10*3/uL (0.00-0.10); Basophils % (A) 0.9 %; Eosinophils # (A) 0.23 X 10*3/uL (0.04-0.35); Eosinophils % (A) 4.1 %; HCT 35.8 % (39.6-50.0); HGB 11.5 g/dL (13.0-17.0); Immature Grans, Automated 0.4 %; Lymphocytes # (A) 1.63 X 10*3/uL (0.90-5.00); MCH 29.6 pg (27.0-32.0); MCHC 32.1 g/dL (32.0-37.0); MCV 92.3 fL (80.0-97.0); Monocytes # (A) 0.78 X 10*3/uL (0.20-1.00); Monocytes % (A) 13.9 %; NRBC Per 100 WBC 0 /100 WBCS (0.0-0.0); Neutrophils # (A) 2.92 X 10*3/uL (1.80-7.70); Neutrophils % (A) 51.7 %; Platelet Count 522 X 10*3/uL (140-440); RBC 3.88 X 10*6/uL (4.40-5.60); RDW 12.2 % (11.5-14.5); WBC 5.63 X 10*3/uL (4.50-10.00)
[2022-06-24 11:02] LABS: African American GFR (CKD) 142.1 (60.0-200.0); Anion Gap 10.4 mmol/L (10.00-18.00); BUN/Creat Ratio 11.93 Ratio (12.00-20.00); Calcium 9.4 mg/dL (8.7-10.3); Carbon Dioxide 30.7 mmol/L (20.0-27.5); Non-African American GFR(CKD) 122.6 (60.0-200.0); Potassium 4.4 mmol/L (3.5-5.5)
[2022-06-24 11:05] LABS: INR 1.11 (0.90-1.11); Prothrombin Time 12.5 sec (9.9-11.9)
--- NOTE | 2022-06-24 12:06 | P.PN ---
Subjective Progress Note Date: 06/24/22 Principal diagnosis: Left fifth toe diabetic foot infection Patient is a 36-year-old male with a past medical history significant for diabetes mellitus and diabetic foot infection presented to the hospital with left fifth toe pain swelling redness and drainage. Patient is status post amputation of the left fifth toe per vascular surgery On today's evaluation that is 06/24/2022, the patient denies any fever or any chills, patient pain to the left fifth toe amputation site is controlled by the current medication and the patient also has resolved , the patient denies having any chest pain shortness of breath or cough Objective - Vital Signs Vital signs: Vital Signs Temp 97.7 F 06/24/22 07:24 Pulse 102 H 06/24/22 07:24 Resp 16 06/24/22 07:24 BP 109/67 06/24/22 07:24 Pulse Ox 95 06/24/22 07:24 FiO2 Intake & Output 06/23/22 06/24/22 06/24/22 18:59 06:59 18:59 Intake Total 300 Balance 300 Weight 71.214 kg Intake: Oral 300 Other: # Voids 4 2 - Exam GENERAL DESCRIPTION: A middle-age male lying in bed in no distress RESPIRATORY SYSTEM: Unlabored breathing , decreased breath sounds at bases HEART: S1 S2 regular rate and rhythm , ABDOMEN: Soft , no tenderness EXTREMITIES: Left foot is currently dressed, no drainage on the dressing - Labs CBC & Chem 7: 06/24/22 07:12 06/24/22 07:12 Labs: Abnormal Lab Results - Last 24 Hours (Table) 06/24/22 06/24/22 06/24/22 Range/Units 07:12 07:12 07:12 RBC 3.88 L (4.40-5.60) X 10*6/uL Hgb 11.5 L (13.0-17.0) g/dL Hct 35.8 L (39.6-50.0) % Plt Count 522 H (140-440) X 10*3/uL PT 12.5 H (9.9-11.9) sec Carbon Dioxide 30.7 H (20.0-27.5) mmol/L BUN 8.0 L (9.0-27.0) mg/dL BUN/Creatinine Ratio 11.93 L (12.00-20.00) Ratio Glucose 38 L* (70-110) mg/dL Microbiology - Last 24 Hours (Table) 06/19/22 10:10 Blood Culture - Preliminary Blood No Growth after 96 hours 06/19/22 10:25 Blood Culture - Preliminary Blood No Growth after 96 hours 06/19/22 11:15 Anaerobic Culture - Final Foot - Left Assessment and Plan (1) Diabetic infection of left foot Current Visit: Yes Status: Acute Code(s): E11.628 - TYPE 2 DIABETES MELLITUS WITH OTHER SKIN COMPLICATIONS; L08.9 - LOCAL INFECTION OF THE SKIN AND SUBCUTANEOUS TISSUE, UNSP SNOMED Code(s): 91754126 Plan: 1patient was in the hospital with extensive left diabetic foot infection patient involving the left fifth toe in this patient who did have ulceration both on the lateral and the plantar aspect and is draining pus concerning for underlying abscess keeping in mind his diabetes will need to cover for gram- positive as well as gram-negative pathogen 2-penicillin allergy that would limit the number of antibiotics safe to use 3- CT of the left foot did not show any abscess ,patient has been evaluated by vascular surgery and is status post amputation of the left fifth toe with resultant open wound 5the patient local wound culture did grew MSSA, patient did get a PICC line plan is to continue on cefazolin 2 g every 8 hours 6 week and close outpatient follow-up Time with Patient: Less than 30
[2022-06-24] MEDS: ALBUTEROL HFA INHALER INHALATION PRN ×2 (12:15→15:15)
[2022-06-24] MEDS: COLLAGENASE 250 UNIT/GM OINTMENT 30 GM TUBE TOPICAL SCH (15:05)
[2022-06-24] MEDS: Insulin Aspart (For Pump) 100 UNIT/ML VIAL SQ-PUMP SCH (15:08)
--- NOTE | 2022-06-26 14:50 | P.DS ---
Providers Date of admission: 06/19/22 11:14 Expected date of discharge: 06/23/22 Attending physician: Holly Fraser Consults: 06/19/22 12:18 Consult Physician Urgent Consulting Provider: Brett Gonzalez Consult Reason/Comments: Left diabetic foot infection Do you want consulting provider notified?: Yes 06/19/22 12:41 Consult Physician Routine Consulting Provider: Tristin Luu Consult Reason/Comments: left foot abscess , debridemnt and deep cultures Do you want consulting provider notified?: Yes Primary care physician: Jasmyne Robles [facility] Course: Final diagnosis Acute diabetic foot ulcer of the left with osteomyelitis, status post left fifth toe amputation with debridement, wound culture showing MSSA Diabetes mellitus, type II, insulin-dependent, uncontrolled with hyperglycemia Hypertension History of chronic kidney disease History of anxiety/bipolar depression GI prophylaxis DVT prophylaxis Full code Discharge disposition Patient is being discharged in a stable condition with guarded prognosis to home. Patient will follow-up with Dr. Robles in the outpatient setting upon discharge. Patient is to follow-up with infectious disease at the wound care center along with GI in the outpatient setting as scheduled. Patient has received a PICC line and will require IV antibiotic therapy along with oral antibiotics per ID recommendations. Patient is to follow-up with vascular surgery Dr. Luu as scheduled. Total time taken is greater than 35 minutes. Hospital course This is a 36-year-old male who was recently admitted with left foot pain with concerns of cellulitis of the diabetic foot ulcer and underwent fifth toe amputation along with debridement. Wound cultures finalized showing MSSA and has received a PICC line and will be continued on IV antibiotic therapy per ID recommendations. Patient will follow closely at the wound care center with infectious disease along with Dr. Luu in the outpatient setting as sched uled. Patient is a diabetic has a pump and strongly encouraged better diet control and close diabetic monitoring. Patient does follow with endocrine outpatient along with GI in the outpatient setting and being worked up for possible gastroparesis. Patient encouraged to follow-up with primary care provider on discharge. Patient has been cleared by consultations and will be discharged today. Please refer to previous documentations and other consultation notes for further HPI. Currently no reports of chest pain, shortness of breath, or palpitations. Patient is afebrile. No reports of nause a or vomiting and patient is tolerating diet. Patient will be discharged home today. Guarded prognosis. Physical exam: Gen: This is a 36-year-old male who is awake, alert and oriented 3, thin built, well-nourished HEENT: Head is atraumatic, normocephalic. Pupils equal, round. Sclerae is anicteric. NECK: Supple. No JVD. No lymphadenopathy. No thyromegaly. LUNGS: Clear to auscultation. No wheezes or rhonchi. No intercostal retractions. HEART: Regular rate and rhythm. No murmur. ABDOMEN: Soft. Bowel sounds are present. No masses. No tenderness. EXTREMITIES: No pedal edema. No calf tenderness. Left foot is surgically dressed and dry and intact and was changed this morning by vascular surgeon NEUROLOGICAL: Patient is awake, alert and oriented x3. Cranial nerves 2 through 12 are grossly intact. Please refer to medication reconciliation sheet for a list of medications. The impression and plan of care has been dictated by Loyda Chang, Nurse Practitioner as directed. Dr. Muriel MD I have performed a history and examination and MDM of this patient, discussed the same with the dictator, and agree with the dictator's assessment and plan as written ,documented as a scribe. Based on total visit time, I have performed more than 50% of the visit. Patient Condition at Discharge: Fair Plan - Discharge Summary Discharge Rx Participant: No New Discharge Prescriptions: New metroNIDAZOLE [Flagyl] 500 mg PO TID 42 Days #126 tab HYDROcodone/APAP 5-325MG [[place] 5-325] 1 each PO Q6HR PRN #12 tab PRN Reason: Moderate Pain (Scale 4 To 6) Collagenase [Santyl Ointment] 1 applic TOPICAL DAILY 30 Days #1 each Acetaminophen Tab [Tylenol] 650 mg PO Q6HR PRN tab PRN Reason: Mild Pain Or Fever > 100.5 Continue Amitriptyline HCl [Elavil] 10 mg PO HS Loratadine [Claritin] 10 mg PO DAILY Sertraline [Zoloft] 100 mg PO DAILY Montelukast [Singulair] 10 mg PO DAILY Albuterol Sulfate [Ventolin HFA] 2 puff INHALATION RT-Q6H PRN PRN Reason: Shortness Of Breath Famotidine [Pepcid] 20 mg PO BID #60 tablet Gabapentin [Neurontin] 800 mg PO TID Losartan [Cozaar] 12.5 mg PO DAILY Fluticasone Propion/Salmeterol [Advair Hfa 45-21 Mcg Inhaler] 2 puff INHALATION RT-BID Cholecalciferol [Vitamin D3 (125 Mcg = 5000 Iu)] 125 mcg PO DAILY traZODone HCL [Desyrel] 100 mg PO HS Insulin Detemir (Levemir) [Levemir] 30 unit SQ HS Ondansetron Odt [Zofran ODT] 4 mg PO DAILY Ibuprofen [Motrin] 800 mg PO Q8H PRN PRN Reason: Pain Or Fever > 100.5 Insulin Aspart (For Pump) [NovoLOG (For Pump)] 0.01 unit SQ-PUMP CONTINUOUS Metoclopramide [Reglan] 5 mg PO BID #30 tab Discharge Medication List Amitriptyline HCl [Elavil] 10 mg PO HS 03/17/18 [History] Loratadine [Claritin] 10 mg PO DAILY 03/17/18 [History] Albuterol Sulfate [Ventolin HFA] 2 puff INHALATION RT-Q6H PRN 07/25/21 [History] Insulin Detemir (Levemir) [Levemir] 30 unit SQ HS 07/25/21 [History] Montelukast [Singulair] 10 mg PO DAILY 07/25/21 [History] Ondansetron Odt [Zofran ODT] 4 mg PO DAILY 07/25/21 [History] Sertraline [Zoloft] 100 mg PO DAILY 07/25/21 [History] Famotidine [Pepcid] 20 mg PO BID #60 tablet 08/02/21 [Rx] Cholecalciferol [Vitamin D3 (125 Mcg = 5000 Iu)] 125 mcg PO DAILY 06/19/22 [History] Fluticasone Propion/Salmeterol [Advair Hfa 45-21 Mcg Inhaler] 2 puff INHALATION RT-BID 06/19/22 [History] Gabapentin [Neurontin] 800 mg PO TID 06/19/22 [History] Ibuprofen [Motrin] 800 mg PO Q8H PRN 06/19/22 [History] Insulin Aspart (For Pump) [NovoLOG (For Pump)] 0.01 unit SQ-PUMP CONTINUOUS 06/19/22 [History] Losartan [Cozaar] 12.5 mg PO DAILY 06/19/22 [History] traZODone HCL [Desyrel] 100 mg PO HS 06/19/22 [History] Acetaminophen Tab [Tylenol] 650 mg PO Q6HR PRN tab 06/24/22 [Rx] Collagenase [Santyl Ointment] 1 applic TOPICAL DAILY 30 Days #1 each 06/24/22 [Rx] HYDROcodone/APAP 5-325MG [[place] 5-325] 1 each PO Q6HR PRN #12 tab 06/24/22 [Rx] Metoclopramide [Reglan] 5 mg PO BID #30 tab 06/24/22 [Rx] metroNIDAZOLE [Flagyl] 500 mg PO TID 42 Days #126 tab 06/24/22 [Rx] Follow up Appointment(s)/Referral(s): [facility] [REFERRING] - As Needed ([facility] will deliver antibiotics and supplies to your house on the evening of 06/24/22 between 6-9p.m.) [facility] [NON-STAFF] - 06/30/22 12:45 pm (With Jus) Jasmyne Robles [Primary Care Provider] - 06/27/22 11:00 am [facility], [NON-STAFF] - As Needed ([facility] will call you to schedule your in home nursing visits. Your first visit will be on the morning on 06/25/22. ) Patient Instructions/Handouts: Toe Amputation (DC) Activity/Diet/Wound Care/Special Instructions: Wound Care Clinical At [facility] on Friday 06/[address] Luu Discharge Disposition: HOME WITH HOME HEALTH SERVICES
--- NOTE | 2022-07-02 11:12 | OP ---
OPERATIVE REPORT DATE OF SERVICE : 06/20/2022 PREOPERATIVE DIAGNOSIS: Infected callus, left foot plantar aspect at base of the 5th metatarsophalangeal joint with drainage of pus. POSTOPERATIVE DIAGNOSIS: Infected callus, left foot plantar aspect at base of the 5th metatarsophalangeal joint with drainage of pus. DESCRIPTION OF PROCEDURE: Incision was made on the lateral aspect of the 5th metatarsal joint, deepened through skin, fat, and fascia. An elliptical incision was carried out down to the plantar aspect of the fifth toe at metatarsophalangeal joint was isolated. Tendons were divided on the plantar and dorsal aspect of the fifth toe. This infection was involving at metatarsopharyngeal joint. Head of the metatarsal joint was removed along with devitalized tissue from the lateral aspect of the foot which was sent for deep culture. There was some bleeding points which were electrocoagulated. The wound was copiously irrigated with hydrogen peroxide and saline. Post debridement measurement is 5 x 3 x 1 cm. Aqua Silver was placed. Dressing was applied. The patient was transferred to recovery in satisfactory condition. MMODL / IJN: [id number] /
== END 2022-06-24 16:20 | disposition home health service (06) | DRG 314 ==
LOC: EC 09:28 → 4SSUR 11:14
PROVIDERS: ADMIT Hospitalist; ATTEND Hospitalist
PROC: 0JBR0ZZ Excision of Left Foot Subcutaneous Tissue and Fascia, Open Approach (ICD-10-PCS; 2022-06-20)
PROC: 0Y6Y0Z0 Detachment at Left 5th Toe, Complete, Open Approach (ICD-10-PCS; 2022-06-20 08:20)
PROC: 02HV33Z Insertion of Infusion Device into Superior Vena Cava, Percutaneous Approach (ICD-10-PCS; principal; 2022-06-24 07:30)
DX: E11.621 Type 2 diabetes mellitus with foot ulcer (principal); M86.172 Other acute osteomyelitis, left ankle and foot; L97.524 Non-pressure chronic ulcer of other part of left foot with necrosis of bone; E11.22 Type 2 diabetes mellitus with diabetic chronic kidney disease; L03.032 Cellulitis of left toe; B95.61 Methicillin susceptible Staphylococcus aureus infection as the cause of diseases classified elsewhere; E11.65 Type 2 diabetes mellitus with hyperglycemia; E11.319 Type 2 diabetes mellitus with unspecified diabetic retinopathy without macular edema; F31.30 Bipolar disorder, current episode depressed, mild or moderate severity, unspecified; E11.42 Type 2 diabetes mellitus with diabetic polyneuropathy; E11.628 Type 2 diabetes mellitus with other skin complications; I12.9 Hypertensive chronic kidney disease with stage 1 through stage 4 chronic kidney disease, or unspecified chronic kidney disease; N18.9 Chronic kidney disease, unspecified; F41.9 Anxiety disorder, unspecified; R59.1 Generalized enlarged lymph nodes; L84 Corns and callosities; Z96.41 Presence of insulin pump (external) (internal); Q72.819 Congenital shortening of unspecified lower limb; Z87.11 Personal history of peptic ulcer disease; Z87.891 Personal history of nicotine dependence; Z28.310 Unvaccinated for COVID-19; Z88.0 Allergy status to penicillin; Z79.4 Long term (current) use of insulin; Z79.891 Long term (current) use of opiate analgesic; Z79.899 Other long term (current) drug therapy; Z83.3 Family history of diabetes mellitus; Z79.51 Long term (current) use of inhaled steroids
CPT/HCPCS: 36415; 36573; 78315; 80048; 80053; 80202; 82565; 83605; 83735; 85025; 85610; 85652; 86140; 87040; 87070; 87075; 87077; 87186; 87205; 88305; 88311; 94640; 96365; 96366; 96367; 96375; 99285

== ENCOUNTER 2022-10-08 09:02 | Day surgery (SDC) | payer OTHER ==
[2022-10-03 12:48] VITALS: BMI 18.3
[~2022-10-08 09:02] MED LIST: ACETAMINOPHEN TAB 500 MG TAB PO PRN; DEXAMETHASONE SOD PHOSPHATE 4 MG/ML 1 ML VIAL IV ONE; HEPARIN SODIUM,PORCINE/PF 5,000 UNIT/0.5 ML SYRINGE SQ PRN; HYDROmorphone 0.5 MG/0.5 ML SYRINGE IVP PRN; LACTATED RINGERS 1,000 ML IV SCH; ONDANSETRON 4 MG/2 ML VIAL IVP ONE; Pre Op ABX Message 1 EACH MISC MISCELLANE ONE
[2022-10-08 09:48] LABS: Glucose,Whole Blood 303 mg/dL (70-110)
[2022-10-08] MEDS ORDERED: INSULIN ASPART (NovoLOG) 100 UNIT/ML VIAL SQ ONE (09:59)
[2022-10-08] MEDS ORDERED: BUPIVACAINE (PF) 0.25% 30 ML VIAL SQ ONE ×3 (11:23→11:46)
[2022-10-08] MEDS ORDERED: PROPOFOL 10 MG/ML 20 ML VIAL IV ONE (11:24)
[2022-10-08] MEDS ORDERED: MIDAZOLAM 2 MG/2 ML VIAL ONE (11:24)
[2022-10-08] MEDS ORDERED: LIDOCAINE 2% INJ 20 MG/ML (2 ML VIAL) ONE (11:24)
[2022-10-08] MEDS ORDERED: fentaNYL (PF) 50 MCG/ML 2 ML AMP ONE (11:24)
[2022-10-08] MEDS ORDERED: SODIUM CHLORIDE 0.9% 50 ML with ceFAZolin 2,000 MG IV ONE ×2 (11:43)
[2022-10-08 12:19] VITALS: TEMP 97
[2022-10-08 12:25] LABS: Glucose,Whole Blood 62 mg/dL (70-110)
[2022-10-08] MEDS: DEXTROSE 50% SYRINGE 50 ML IVP ONE ×2 (12:26→13:04)
--- NOTE | 2022-10-08 12:31 | P.OP ---
Date of Procedure: 10/08/22 Preoperative Diagnosis: Left inguinal lymphadenopathy Postoperative Diagnosis: Left inguinal lymphadenopathy Procedure(s) Performed: Excision of left lower inguinal lymph node Anesthesia: LAWRENCE Surgeon: Home Rodriguez Estimated Blood Loss (ml): 5 Pathology: other (Left inguinal lymph node) Condition: stable Disposition: PACU Description of Procedure: Patient's placed on the operative table in the supine position. He received general endotracheal tube position. His left groin was prepped and draped usual fashion. The lymph node was located just below the inguinal crease. A skin incision was made over the lymph node. Then using blunt sharp dissection with cautery the lymph node was dissected free and sent to pathology. Hemostasis was achieved. The skin was closed interrupted 3-0 Monocryl suture. Dermabond dressings was applied. Patient top she will was sent to recovery room stable condition.
[2022-10-08 12:43] LABS: Glucose,Whole Blood 94 mg/dL (70-110)
[2022-10-08 13:09] LABS: Glucose,Whole Blood 74 mg/dL (70-110)
[2022-10-08 13:19] LABS: Glucose,Whole Blood 115 mg/dL (70-110)
[2022-10-08 13:38] VITALS: RESP 16
[2022-10-08 13:46] LABS: Glucose,Whole Blood 89 mg/dL (70-110)
[2022-10-08 13:50] VITALS: BP 119/78; PULSE 85
[2022-10-08 14:06] LABS: Glucose,Whole Blood 65 mg/dL (70-110)
[2022-10-08 14:07] LABS: Glucose,Whole Blood 64 mg/dL (70-110)
[2022-10-08 14:14] LABS: Glucose,Whole Blood 72 mg/dL (70-110)
[2022-10-08 14:29] LABS: Glucose,Whole Blood 56 mg/dL (70-110)
[2022-10-08 14:38] LABS: Glucose,Whole Blood 67 mg/dL (70-110)
[2022-10-08] MEDS ORDERED: IV FLUID CONTINUATION 1,000 ML IV ONE (15:03)
[2022-10-08] MEDS ORDERED: LACTATED RINGERS 1,000 ML IV ONE (15:03)
[2022-10-08 15:35] LABS: Glucose,Whole Blood 84 mg/dL (70-110)
== END 2022-10-08 15:37 | disposition left against medical advice (07) ==
LOC: OR 09:02
PROVIDERS: ATTEND Surgery
DX: D36.0 Benign neoplasm of lymph nodes (principal); J45.909 Unspecified asthma, uncomplicated; E11.9 Type 2 diabetes mellitus without complications; F41.8 Other specified anxiety disorders; Z88.0 Allergy status to penicillin; Z88.8 Allergy status to other drugs, medicaments and biological substances; Z79.899 Other long term (current) drug therapy; Z79.84 Long term (current) use of oral hypoglycemic drugs
CPT/HCPCS: 38525; 88305; 82947; J2250; J2405; J0690; J3010; J2704; J1644; J2001

== ENCOUNTER 2022-10-20 15:59 | Emergency (ER) | payer OTHER ==
[2022-10-20 16:15] VITALS: RESP 18; TEMP 98.8
--- NOTE | 2022-10-20 17:22 | ED ---
General Adult HPI - General Source: patient, RN notes reviewed Mode of arrival: ambulatory Limitations: no limitations <Teagan Heart - Last Filed: 10/20/22 17:22> <Janell Chapa - Last Filed: 10/21/22 04:11> - General Chief complaint: Extremity Injury, Lower Stated complaint: swelling left thigh-post surgery Time Seen by Provider: 10/20/22 17:22 - History of Present Illness Initial comments: 37-year-old male with no significant past medical history presents emergency Department chief complaint of postop problem. Patient reports that he had a lymph node removed she a week ago by Dr. Rubi. He reports wound dehiscence and serous drainage from the site. (Teagan Heart) I agree with the above HPI. He denies pain. Denies fever, chills, nausea, vomiting. (Janell Chapa) - Related Data Home Medications Medication Instructions Recorded Confirmed Amitriptyline HCl [Elavil] 10 mg PO HS 03/17/18 10/08/22 Loratadine [Claritin] 10 mg PO DAILY 03/17/18 10/08/22 Albuterol Sulfate [Ventolin HFA] 2 puff INHALATION RT-Q6H PRN 07/25/21 10/08/22 Insulin Detemir (Levemir) [Levemir] 30 unit SQ HS 07/25/21 10/08/22 Montelukast [Singulair] 10 mg PO DAILY 07/25/21 10/08/22 Ondansetron Odt [Zofran ODT] 4 mg PO DAILY 07/25/21 10/08/22 Sertraline [Zoloft] 100 mg PO DAILY 07/25/21 10/08/22 Cholecalciferol [Vitamin D3 (125 125 mcg PO DAILY 06/19/22 10/08/22 Mcg = 5000 Iu)] Fluticasone Propion/Salmeterol 2 puff INHALATION RT-BID 06/19/22 10/08/22 [Advair Hfa 45-21 Mcg Inhaler] Gabapentin [Neurontin] 800 mg PO BID 06/19/22 10/08/22 Ibuprofen [Motrin] 800 mg PO Q8H PRN 06/19/22 10/08/22 Insulin Aspart (For Pump) [NovoLOG 0.01 unit SQ-PUMP CONTINUOUS 06/19/22 10/08/22 (For Pump)] Losartan [Cozaar] 12.5 mg PO DAILY 06/19/22 10/08/22 traZODone HCL [Desyrel] 100 mg PO HS 06/19/22 10/08/22 Famotidine [Pepcid] 40 mg PO DAILY 10/03/22 10/08/22 Vancomycin HCl in 5 % Dextrose 1 gm IV BID 10/03/22 10/08/22 [Vancomycin 1 Gram/250 ml-D5w] Previous Rx's Medication Instructions Recorded Acetaminophen Tab [Tylenol] 650 mg PO Q6HR PRN tab 06/24/22 Metoclopramide [Reglan] 5 mg PO BID #30 tab 06/24/22 Acetaminophen Tab [Tylenol] 650 mg PO Q6H #30 tab 10/08/22 Ibuprofen [Motrin] 600 mg PO Q6HR PRN #40 tab 10/08/22 Clindamycin [Cleocin] 450 mg PO Q8H #63 capsule 10/20/22 Allergies Allergy/AdvReac Type Severity Reaction Status Date / Time Penicillins Allergy Unknown Verified 10/08/22 09:37 Childhood sulfamethoxazole Allergy Rash/Hives Verified 10/08/22 09:37 [From Bactrim] trimethoprim [From Bactrim] Allergy Rash/Hives Verified 10/08/22 09:37 Review of Systems ROS Other: All systems not noted in ROS Statement are negative. <Teagan Heart - Last Filed: 10/20/22 17:22> ROS Other: All systems not noted in ROS Statement are negative. <Janell Chapa - Last Filed: 10/21/22 04:11> ROS Statement: Those systems with pertinent positive or pertinent negative responses have been documented in the HPI. Past Medical History Past Medical History: Diabetes Mellitus, Hypertension, Renal Disease Additional Past Medical History / Comment(s): Pt had recent upper respiratory infection and was on antibiotics/steroids for this, IDDM type I, past DKA about 1.5 yrs ago, neuropathy bilateral legs and runs up L side of body/L arm, hand and L side of face, L eye diabetic retinopathy, diabetic nephropathy-elevated urine protein, benign nasal polyp History of Any Multi-Drug Resistant Organisms: None Reported Past Surgical History: Tonsillectomy Additional Past Surgical History / Comment(s): Closed reduction nasal bone fracture with fixation septoplasty/open reduction L malary zygomatic arch fracture. lymph node removal, September 2022 - left thigh Past Anesthesia/Blood Transfusion Reactions: No Reported Reaction Past Psychological History: Anxiety, Bipolar, Depression Smoking Status: Former smoker Past Alcohol Use History: None Reported Past Drug Use History: None Reported - Past Family History Father Family Medical History: No Reported History Additional Family Medical History / Comment(s): Father is healthy Mother Family Medical History: Diabetes Mellitus Additional Family Medical History / Comment(s): Gastric ulcer, one leg shorter, neuropathy involving arms. <Teagan Heart - Last Filed: 10/20/22 17:22> General Exam Limitations: no limitations <Teagan Heart - Last Filed: 10/20/22 17:22> General appearance: alert, in no apparent distress Respiratory exam: Present: normal lung sounds bilaterally. Absent: respiratory distress, wheezes, rales, rhonchi, stridor Cardiovascular Exam: Present: regular rate, normal rhythm, normal heart sounds. Absent: systolic murmur, diastolic murmur, rubs, gallop, clicks Extremities exam: Present: other (1 cm dehiscence of surgical incision clear fluid draining with fluctuance. No erythema, warmth, tenderness) Neurological exam: Present: alert, oriented X3, CN II-XII intact Psychiatric exam: Present: normal affect, normal mood Skin exam: Present: warm, dry, intact, normal color. Absent: rash <Janell Chapa - Last Filed: 10/21/22 04:11> - General Exam Comments Initial Comments: Visual Physical Exam Vital signs reviewed General: Well-appearing, nontoxic, no acute distress. Head: Normocephalic, atraumatic Eyes: PERRLA, EOMI ENT: Airway patent Chest: Nonlabored breathing Skin: No visual rash, normal skin tone Neuro: Alert and oriented 3 Musculoskeletal: No gross abnormalities (Teagan Heart) Course Vital Signs 10/20/22 10/20/22 16:10 22:00 Temperature 98.8 F Pulse Rate 90 94 Respiratory 18 18 Rate Blood Pressure 102/74 135/79 O2 Sat by Pulse 95 99 Oximetry Medical Decision Making - Lab Data Result diagrams: 10/20/22 19:22 10/20/22 19:22 <Janell Chapa - Last Filed: 10/21/22 04:11> - Medical Decision Making Was pt. sent in by a medical professional or institution ([facility], MACHINE P[employer]ER, urgent care, hospital, or halfway...) When possible be specific @ -No Did you speak to anyone other than the patient for history (EMS, parent, family, police, friend...)? What history was obtained from this source @ -No Did you review nursing and triage notes (agree or disagree)? Why? @ -I reviewed and agree with nursing and triage notes Were old charts reviewed (outside hosp., previous admission, EMS record, old EKG, old radiological studies, urgent care reports/EKG's, halfway records)? Report findings @ -No old charts were reviewed Differential Diagnosis (chest pain, altered mental status, abdominal pain women, abdominal pain men, vaginal bleeding, weakness, fever, dyspnea, syncope, headache, dizziness, GI bleed, back pain, seizure, CVA, palpatations, mental health)? @ -Seroma, abscess, cellulitis EKG interpreted by me (3pts min.). @ -As above X-rays interpreted by me (1pt min.). @ -None done CT interpreted by me (1pt min.). @ -None done U/S interpreted by me (1pt. min.). @ -Complex fluid collection seen in area of incision measuring 4.42.74.4 cm What testing was considered but not performed or refused? (CT, X-rays, U/S, labs)? Why? @ -None What meds were considered but not given or refused? Why? @ -None Did you discuss the management of the patient with other professionals (professionals i.e. [facility], MACHINE P[employer]ER, lab, RT, psych nurse, director of social work, investment accounting clerk, teacher, training systems officer, onsite case manager)? Give summary @ -Discussed case with Dr. Wolf who recommends gauze dressing and prophylactic antibiotics Was smoking cessation discussed for >3mins.? @ -No Was critical care preformed (if so, how long)? @ -No Were there social determinants of health that impacted care today? How? (Homelessness, low income, unemployed, alcoholism, drug addiction, transp ortation, low edu. Level, literacy, decrease access to med. care, correction, rehab)? @ -No Was there de-escalation of care discussed even if they declined (Discuss DNR or withdrawal of care, Hospice)? DNR status @ -No What co-morbidities impacted this encounter? (DM, HTN, Smoking, COPD, CAD, Cancer, CVA, ARF, Chemo, Hep., AIDS, mental health diagnosis, sleep apnea, morbid obesity)? @ -None Was patient admitted / discharged? Hospital course, mention meds given and route, prescriptions, significant lab abnormalities, going to OR and other pertinent info. @ -discharged Undiagnosed new problem with uncertain prognosis? @ -No Drug Therapy requiring intensive monitoring for toxicity (Heparin, Nitro, Insulin, Cardizem)? @ -No Were any procedures done? @ -No Diagnosis/symptom? @ -seroma, post op complication Acute, or Chronic, or Acute on Chronic? @ -acute Uncomplicated (without systemic symptoms) or Complicated (systemic symptoms)? @ -uncomplicated Side effects of treatment? @ -No Exacerbation, Progression, or Severe Exacerbation? @ -No Poses a threat to life or bodily function? How? (Chest pain, USA, MS, pneumonia, PE, COPD, DKA, ARF, appy, cholecystitis, CVA, Diverticulitis, Homicidal, Suicidal, threat to staff... and all critical care pts) @ -No Dr. Barrios is my attending (Janell Chapa) - Lab Data Lab Results 10/20/22 10/20/22 Range/Units 19:22 19:22 WBC 7.4 (3.8-10.6) k/uL RBC 4.42 (4.30-5.90) m/uL Hgb 13.6 (13.0-17.5) gm/dL Hct 41.3 (39.0-53.0) % MCV 93.3 (80.0-100.0) fL MCH 30.8 (25.0-35.0) pg MCHC 33.0 (31.0-37.0) g/dL RDW 12.8 (11.5-15.5) % Plt Count 268 (150-450) k/uL MPV 9.4 Neutrophils % 54 % Lymphocytes % 30 % Monocytes % 8 % Eosinophils % 5 % Basophils % 1 % Neutrophils # 4.0 (1.3-7.7) k/uL Lymphocytes # 2.2 (1.0-4.8) k/uL Monocytes # 0.6 (0-1.0) k/uL Eosinophils # 0.4 (0-0.7) k/uL Basophils # 0.1 (0-0.2) k/uL Sodium 142 (137-145) mmol/L Potassium 5.1 (3.5-5.1) mmol/L Chloride 103 (98-107) mmol/L Carbon Dioxide 29 (22-30) mmol/L Anion Gap 10 mmol/L BUN 23 H (9-20) mg/dL Creatinine 0.92 (0.66-1.25) mg/dL Est GFR (CKD-EPI)AfAm >90 (>60 ml/min/1.73 sqM) Est GFR (CKD-EPI)NonAf >90 (>60 ml/min/1.73 sqM) Glucose 76 (74-99) mg/dL Calcium 9.3 (8.4-10.2) mg/dL Total Bilirubin 0.4 (0.2-1.3) mg/dL AST 32 (17-59) U/L ALT 32 (4-49) U/L Alkaline Phosphatase 96 (38-126) U/L Total Protein 8.2 (6.3-8.2) g/dL Albumin 4.4 (3.5-5.0) g/dL Disposition <Teagan Heart - Last Filed: 10/20/22 17:22> Is patient prescribed a controlled substance at d/c from ED?: No <Janell Chapa - Last Filed: 10/21/22 04:11> Clinical Impression: Seroma, Post-operative complication Disposition: HOME SELF-CARE Condition: Good Instructions (If sedation given, give patient instructions): Seroma (DC) Additional Instructions: Take medication as directed. This medication may cause diarrhea. Follow-up with general surgeon on Thursday. Return to emergency department experience new, concerning, or worsening symptoms Prescriptions: Clindamycin [Cleocin] 450 mg PO Q8H #63 capsule Referrals: Jasmyne Robles [Primary Care Provider] - 1-2 days
[2022-10-20 19:48] LABS: Basophils # (A) 0.1 k/uL (0-0.2); Basophils % (A) 1 %; Eosinophils # (A) 0.4 k/uL (0-0.7); Eosinophils % (A) 5 %; HCT 41.3 % (39.0-53.0); HGB 13.6 gm/dL (13.0-17.5); Lymphocytes # (A) 2.2 k/uL (1.0-4.8); Lymphocytes % (A) 30 %; MCH 30.8 pg (25.0-35.0); MCV 93.3 fL (80.0-100.0); Mean Platelet Volume 9.4; Monocytes # (A) 0.6 k/uL (0-1.0); Monocytes % (A) 8 %; Neutrophils % (A) 54 %; Platelet Count 268 k/uL (150-450); RBC 4.42 m/uL (4.30-5.90); RDW 12.8 % (11.5-15.5); WBC 7.4 k/uL (3.8-10.6)
[2022-10-20 20:09] LABS: ALT 32 U/L (4-49); AST 32 U/L (17-59); African American GFR (CKD) >90 (>60 ml/min/1.73 sqM); Albumin 4.4 g/dL (3.5-5.0); Alkaline Phosphatase 96 U/L (38-126); Anion Gap 10 mmol/L; Blood Urea Nitrogen 23 mg/dL (9-20); Calcium 9.3 mg/dL (8.4-10.2); Carbon Dioxide 29 mmol/L (22-30); Chloride 103 mmol/L (98-107); Glucose 76 mg/dL (74-99); Non-African American GFR(CKD) >90 (>60 ml/min/1.73 sqM); Potassium 5.1 mmol/L (3.5-5.1); Sodium 142 mmol/L (137-145); Total Bilirubin 0.4 mg/dL (0.2-1.3); Total Protein 8.2 g/dL (6.3-8.2)
--- NOTE | 2022-10-20 20:57 | US ---
EXAMINATION TYPE: US extremity nonvasc mass LT DATE OF EXAM: 10/20/2022 COMPARISON: NONE CLINICAL INDICATION: Male, 37 years old with history of fluid collection s/p lymph node removal; Pt s tates he had a lymph node removed from upper left thigh on 10/14/22. Since then, he has had a lump fang t has slowly gotten bigger and is tender. He states it leaks from the incision site TECHNIQUE: Multiple alonso in color ultrasound images of the left side patient's region of the incisio n was performed. FINDINGS/IMPRESSION: Complex fluid collection seen in area of incision measuring 4.4 x 3.7 x 4.0 cm This appears to be avascular. There appears to be septations within this region. This may represent a hematoma versus seroma. Abscess is not excluded.
[2022-10-20] MEDS ORDERED: CLINDAMYCIN 150 MG CAP PO STA (21:39)
[2022-10-20 22:02] VITALS: BP 135/79; PULSE 94
== END 2022-10-20 22:03 | disposition home or self-care (01) ==
LOC: EC 15:59
DX: S70.12XA Contusion of left thigh, initial encounter (principal); E11.9 Type 2 diabetes mellitus without complications; I10 Essential (primary) hypertension; F31.9 Bipolar disorder, unspecified; Z87.891 Personal history of nicotine dependence; Z79.4 Long term (current) use of insulin; Z79.51 Long term (current) use of inhaled steroids; Z79.899 Other long term (current) drug therapy; Z88.0 Allergy status to penicillin; Z88.1 Allergy status to other antibiotic agents; Z88.2 Allergy status to sulfonamides; X58.XXXA Exposure to other specified factors, initial encounter
CPT/HCPCS: 36415; 80053; 85025; 99284

== ENCOUNTER 2022-11-23 17:48 | Emergency (ER) | payer OTHER ==
[2022-11-23 18:01] VITALS: TEMP 98
[2022-11-23] MEDS ORDERED: diphenhydrAMINE 50 MG/ML 1 ML VIAL IVP STA (18:02)
[2022-11-23] MEDS ORDERED: METOCLOPRAMIDE 5 MG/ML 2 ML VIAL IVP STA (18:02)
[2022-11-23] MEDS ORDERED: SODIUM CHLORIDE 0.9% 2,000 ML IV ONE (18:02)
--- NOTE | 2022-11-23 20:15 | ED ---
General Adult HPI - General Chief complaint: Recheck/Abnormal Lab/Rx Stated complaint: diabetic issues Time Seen by Provider: 11/23/22 18:00 Source: patient, EMS Mode of arrival: EMS Limitations: no limitations - History of Present Illness Initial comments: 37-year-old male with past medical history of diabetes who presents emergency department reporting nausea, vomiting and weakness. States that he ran out of the medications for his insulin pump. He was having issues with his insurance company covering the [place]. He is able to obtain at tomorrow however has not been taking any insulin since yesterday. He began having nausea vomiting and weakness. He called EMS and just prior to their arrival administered 8 units of NovoLog to himself. He has had one previous episode of DKA. He was provided with 4 mode grams of Zofran from EMS and 250 mL of fluid. He denies any fevers. No chest pain. No shortness breath. No abdominal pain. 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 - Related Data Home Medications Medication Instructions Recorded Confirmed Amitriptyline HCl [Elavil] 10 mg PO HS 03/17/18 11/23/22 Loratadine [Claritin] 10 mg PO DAILY 03/17/18 11/23/22 Albuterol Sulfate [Ventolin HFA] 2 puff INHALATION RT-Q6H PRN 07/25/21 11/23/22 Insulin Detemir (Levemir) [Levemir] 30 unit SQ HS PRN 07/25/21 11/23/22 Montelukast [Singulair] 10 mg PO DAILY 07/25/21 11/23/22 Ondansetron Odt [Zofran ODT] 4 mg PO DAILY 07/25/21 11/23/22 Cholecalciferol [Vitamin D3 (125 125 mcg PO DAILY 06/19/22 11/23/22 Mcg = 5000 Iu)] Fluticasone Propion/Salmeterol 2 puff INHALATION RT-BID 06/19/22 11/23/22 [Advair Hfa 45-21 Mcg Inhaler] Gabapentin [Neurontin] 800 mg PO TID 06/19/22 11/23/22 Ibuprofen [Motrin] 800 mg PO Q8H PRN 06/19/22 11/23/22 Insulin Aspart (For Pump) [NovoLOG 0.01 unit SQ-PUMP CONTINUOUS 06/19/22 11/23/22 (For Pump)] traZODone HCL [Desyrel] 100 mg PO HS 06/19/22 11/23/22 Famotidine [Pepcid] 40 mg PO DAILY 10/03/22 11/23/22 Metoclopramide [Reglan] 5 mg PO BID PRN 11/23/22 11/23/22 Pantoprazole [Protonix] 40 mg PO AC-BID 11/23/22 11/23/22 Sertraline [Zoloft] 50 mg PO DAILY 11/23/22 11/23/22 Previous Rx's Medication Instructions Recorded Clindamycin [Cleocin] 450 mg PO Q8H #63 capsule 10/20/22 Allergies Allergy/AdvReac Type Severity Reaction Status Date / Time Penicillins Allergy Unknown Verified 11/23/22 21:50 Childhood sulfamethoxazole Allergy Rash/Hives Verified 11/23/22 21:50 [From Bactrim] trimethoprim [From Bactrim] Allergy Rash/Hives Verified 11/23/22 21:50 Review of Systems ROS Statement: Those systems with pertinent positive or pertinent negative responses have been documented in the HPI. ROS Other: All systems not noted in ROS Statement are negative. Past Medical History Past Medical History: Diabetes Mellitus, Hypertension, Renal Disease Additional Past Medical History / Comment(s): Pt had recent upper respiratory infection and was on antibiotics/steroids for this, IDDM type I, past DKA about 1.5 yrs ago, neuropathy bilateral legs and runs up L side of body/L arm, hand and L side of face, L eye diabetic retinopathy, diabetic nephropathy-elevated urine protein, benign nasal polyp History of Any Multi-Drug Resistant Organisms: None Reported Past Surgical History: Tonsillectomy Additional Past Surgical History / Comment(s): Closed reduction nasal bone fracture with fixation septoplasty/open reduction L malary zygomatic arch fracture. lymph node removal, September 2022 - left thigh Past Anesthesia/Blood Transfusion Reactions: No Reported Reaction Past Psychological History: Anxiety, Bipolar, Depression Smoking Status: Former smoker Past Alcohol Use History: None Reported Past Drug Use History: None Reported - Past Family History Father Family Medical History: No Reported History Additional Family Medical History / Comment(s): Father is healthy Mother Family Medical History: Diabetes Mellitus Additional Family Medical History / Comment(s): Gastric ulcer, one leg shorter, neuropathy involving arms. General Exam Limitations: no limitations General appearance: alert, in no apparent distress Head exam: Present: atraumatic, normocephalic, normal inspection Eye exam: Present: normal appearance, PERRL, EOMI. Absent: scleral icterus, conjunctival injection, periorbital swelling ENT exam: Present: normal exam, mucous membranes moist Neck exam: Present: normal inspection. Absent: tenderness, meningismus, lymphadenopathy Respiratory exam: Present: normal lung sounds bilaterally. Absent: respiratory distress, wheezes, rales, rhonchi, stridor Cardiovascular Exam: Present: normal rhythm, tachycardia, normal heart sounds. Absent: systolic murmur, diastolic murmur, rubs, gallop, clicks GI/Abdominal exam: Present: soft, normal bowel sounds. Absent: distended, tenderness, guarding, rebound, rigid Extremities exam: Present: normal inspection, full ROM, normal capillary refill. Absent: tenderness, pedal edema, joint swelling, calf tenderness Back exam: Present: normal inspection Neurological exam: Present: alert, oriented X3, CN II-XII intact Psychiatric exam: Present: normal affect, normal mood Skin exam: Present: warm, dry, intact, normal color. Absent: rash Course Vital Signs 11/23/22 11/23/22 11/23/22 17:57 18:00 18:30 Temperature 98.0 F Pulse Rate 116 H 118 H Pulse Rate [ 118 H Customer Contact Specialist ] Respiratory 20 16 Rate Blood Pressure 145/92 145/92 O2 Sat by Pulse 100 99 Oximetry 11/23/22 11/23/22 19:00 23:29 Temperature Pulse Rate 115 H 104 H Pulse Rate [ Customer Contact Specialist ] Respiratory 14 18 Rate Blood Pressure 145/97 92/50 O2 Sat by Pulse 99 99 Oximetry Medical Decision Making - Medical Decision Making Was pt. sent in by a medical professional or institution (, PA, APPEALS MANAGER, urgent care, hospital, or residential...) When possible be specific @ -No Did you speak to anyone other than the patient for history (EMS, parent, family, police, friend...)? What history was obtained from this source @ -No Did you review nursing and triage notes (agree or disagree)? Why? @ -I reviewed and agree with nursing and triage notes Were old charts reviewed (outside hosp., previous admission, EMS record, old EKG, old radiological studies, urgent care reports/EKG's, residential records)? Report findings @ -No old charts were reviewed Differential Diagnosis (chest pain, altered mental status, abdominal pain women, abdominal pain men, vaginal bleeding, weakness, fever, dyspnea, syncope, headache, dizziness, GI bleed, back pain, seizure, CVA, palpatations, mental health, musculoskeletal)? @ -DKA, hyperglycemia, nausea and vomiting EKG interpreted by me (3pts min.). @ -Yes and demonstrates sinus tachycardia with a rate of 117. IN interval 140. QRS 94. QTC of 393. No acute ST segment elevations or depressions X-rays interpreted by me (1pt min.). @ -None done CT interpreted by me (1pt min.). @ -None done U/S interpreted by me (1pt. min.). @ -None done What testing was considered but not performed or refused? (CT, X-rays, U/S, labs)? Why? @ -None What meds were considered but not given or refused? Why? @ -Insulin - glucose is improved without a gap Did you discuss the management of the patient with other professionals (professionals i.e. , PA, APPEALS MANAGER, lab, RT, psych nurse, perinatal social worker, hearing aid repair technician, teacher, deck officer, manager of case)? Give summary @ -No Was smoking cessation discussed for >3mins.? @ -No Was critical care preformed (if so, how long)? @ -No Were there social determinants of health that impacted care today? How? (Homelessness, low income, unemployed, alcoholism, drug addiction, transportation, low edu. Level, literacy, decrease access to med. care, [place] [facility], rehab)? @ -No Was there de-escalation of care discussed even if they declined (Discuss DNR or withdrawal of care, Hospice)? DNR status @ -No What co-morbidities impacted this encounter? (DM, HTN, Smoking, COPD, CAD, Cancer, CVA, ARF, Chemo, Hep., AIDS, mental health diagnosis, sleep apnea, morbid obesity)? @ -DKA type I Was patient admitted / discharged? Hospital course, mention meds given and route, prescriptions, significant lab abnormalities, going to OR and other pertinent info. @ -Upon arrival the patient was placed into room 19. Thorough history and physical exam is performed. There is significant delay in obtaining laboratory studies as patient is a hard draw and refusing RN draw - he wants lab to draw. He had been given 4 mg of Zofran by EMS. He is additionally given 10 mg of Reglan. Laboratory studies are reviewed. Acetone is positive. Patient has a CO2 of 19. No anion gap. Patient is requesting additional nausea medications and is given a dose of Compazine. Discussed the results with the patient. I recommended admission however the patient wants to go home at this time. Did discuss the risks for which the patient understood. Risks include permanent disability and . States that he will cover with injectable insulin for tonight and obtain his medications for his insulin pump in the morning. He is instructed to return for any new or worsening symptoms. Patient was agreeable to plan to discharge home in stable condition. Undiagnosed new problem with uncertain prognosis? @ -No Drug Therapy requiring intensive monitoring for toxicity (Heparin, Nitro, Insulin, Cardizem)? @ -No Were any procedures done? @ -No Diagnosis/symptom? @ -acute hyperglycemia, DM1 Acute, or Chronic, or Acute on Chronic? @ -acute Uncomplicated (without systemic symptoms) or Complicated (systemic symptoms)? @ -Complicated Side effects of treatment? @ -No Exacerbation, Progression, or Severe Exacerbation? @ -No Poses a threat to life or bodily function? How? (Chest pain, USA, PA, pneumonia, PE, COPD, DKA, ARF, appy, cholecystitis, CVA, Diverticulitis, Homicidal, Suicidal, threat to staff... and all critical care pts) @ -No - Lab Data Result diagrams: 11/23/22 22:25 11/23/22 22:25 Lab Results 11/23/22 11/23/22 11/23/22 Range/Units 21:50 22:02 22:25 WBC 11.1 H (3.8-10.6) k/uL RBC 4.13 L (4.30-5.90) m/uL Hgb 13.0 (13.0-17.5) gm/dL Hct 37.9 L (39.0-53.0) % MCV 91.8 (80.0-100.0) fL MCH 31.6 (25.0-35.0) pg MCHC 34.4 (31.0-37.0) g/dL RDW 12.7 (11.5-15.5) % Plt Count 184 (150-450) k/uL MPV 9.4 Neutrophils % 89 % Lymphocytes % 7 % Monocytes % 2 % Eosinophils % 1 % Basophils % 0 % Neutrophils # 9.9 H (1.3-7.7) k/uL Lymphocytes # 0.8 L (1.0-4.8) k/uL Monocytes # 0.2 (0-1.0) k/uL Eosinophils # 0.1 (0-0.7) k/uL Basophils # 0.0 (0-0.2) k/uL VBG pH 7.31 (7.31-7.41) VBG pCO2 49 (37-51) mmHg VBG HCO3 25 (24-28) mmol/L Sodium (137-145) mmol/L Potassium (3.5-5.1) mmol/L Chloride (98-107) mmol/L Carbon Dioxide (22-30) mmol/L Anion Gap mmol/L BUN (9-20) mg/dL Creatinine (0.66-1.25) mg/dL Est GFR (CKD-EPI)AfAm (>60 ml/min/1.73 sqM) Est GFR (CKD-EPI)NonAf (>60 ml/min/1.73 sqM) Glucose (74-99) mg/dL POC Glucose (mg/dL) 235 H (70-110) mg/dL POC Glu Rehabilitation Therapy Aide ROXANNE Yosi Rivera Plasma Lactic Acid Sanjay (0.7-2.0) mmol/L Calcium (8.4-10.2) mg/dL Total Bilirubin (0.2-1.3) mg/dL AST (17-59) U/L ALT (4-49) U/L Alkaline Phosphatase (38-126) U/L Total Protein (6.3-8.2) g/dL Albumin (3.5-5.0) g/dL Acetone, Qual (Negative) 11/23/22 11/23/22 11/23/22 Range/Units 22:25 22:25 22:25 WBC (3.8-10.6) k/uL RBC (4.30-5.90) m/uL Hgb (13.0-17.5) gm/dL Hct (39.0-53.0) % MCV (80.0-100.0) fL MCH (25.0-35.0) pg MCHC (31.0-37.0) g/dL RDW (11.5-15.5) % Plt Count (150-450) k/uL MPV Neutrophils % % Lymphocytes % % Monocytes % % Eosinophils % % Basophils % % Neutrophils # (1.3-7.7) k/uL Lymphocytes # (1.0-4.8) k/uL Monocytes # (0-1.0) k/uL Eosinophils # (0-0.7) k/uL Basophils # (0-0.2) k/uL VBG pH (7.31-7.41) VBG pCO2 (37-51) mmHg VBG HCO3 (24-28) mmol/L Sodium 138 (137-145) mmol/L Potassium 4.3 (3.5-5.1) mmol/L Chloride 106 (98-107) mmol/L Carbon Dioxide 19 L (22-30) mmol/L Anion Gap 13 mmol/L BUN 23 H (9-20) mg/dL Creatinine 0.73 (0.66-1.25) mg/dL Est GFR (CKD-EPI)AfAm >90 (>60 ml/min/1.73 sqM) Est GFR (CKD-EPI)NonAf >90 (>60 ml/min/1.73 sqM) Glucose 206 H (74-99) mg/dL POC Glucose (mg/dL) (70-110) mg/dL POC Glu Rehabilitation Therapy Aide ID Plasma Lactic Acid Sanjay 1.3 (0.7-2.0) mmol/L Calcium 8.9 (8.4-10.2) mg/dL Total Bilirubin 1.1 (0.2-1.3) mg/dL AST 31 (17-59) U/L ALT 25 (4-49) U/L Alkaline Phosphatase 96 (38-126) U/L Total Protein 8.1 (6.3-8.2) g/dL Albumin 4.5 (3.5-5.0) g/dL Acetone, Qual Positive (Negative) Disposition Clinical Impression: Hyperglycemia due to type 1 diabetes mellitus Disposition: HOME SELF-CARE Condition: Stable Instructions (If sedation given, give patient instructions): Diabetic Hyperglycemia (ED) Additional Instructions: Please use your insulin correction scales. Obtain your medications tomorrow. Return for any new or worsening symptoms Is patient prescribed a controlled substance at d/c from ED?: No Referrals: Jasmyne Robles [Primary Care Provider] - 1-2 days Time of Disposition: 23:27
[2022-11-23] MEDS ORDERED: PROCHLORPERAZINE INJ 10 MG/2 ML VIAL IVP STA (20:34)
[2022-11-23 22:03] LABS: Glucose,Whole Blood 235 mg/dL (70-110)
[2022-11-23 22:08] LABS: VBG PH 7.31 (7.31-7.41)
[2022-11-23 22:33] LABS: Basophils % (A) 0 %; Eosinophils # (A) 0.1 k/uL (0-0.7); Eosinophils % (A) 1 %; HCT 37.9 % (39.0-53.0); Lymphocytes # (A) 0.8 k/uL (1.0-4.8); Lymphocytes % (A) 7 %; MCH 31.6 pg (25.0-35.0); MCHC 34.4 g/dL (31.0-37.0); MCV 91.8 fL (80.0-100.0); Mean Platelet Volume 9.4; Monocytes # (A) 0.2 k/uL (0-1.0); Monocytes % (A) 2 %; Neutrophils # (A) 9.9 k/uL (1.3-7.7); Neutrophils % (A) 89 %; Platelet Count 184 k/uL (150-450); RBC 4.13 m/uL (4.30-5.90); RDW 12.7 % (11.5-15.5); WBC 11.1 k/uL (3.8-10.6)
[2022-11-23 23:10] LABS: ALT 25 U/L (4-49); AST 31 U/L (17-59); African American GFR (CKD) >90 (>60 ml/min/1.73 sqM); Albumin 4.5 g/dL (3.5-5.0); Alkaline Phosphatase 96 U/L (38-126); Anion Gap 13 mmol/L; Blood Urea Nitrogen 23 mg/dL (9-20); Calcium 8.9 mg/dL (8.4-10.2); Carbon Dioxide 19 mmol/L (22-30); Chloride 106 mmol/L (98-107); Glucose 206 mg/dL (74-99); Non-African American GFR(CKD) >90 (>60 ml/min/1.73 sqM); Potassium 4.3 mmol/L (3.5-5.1); Sodium 138 mmol/L (137-145); Total Bilirubin 1.1 mg/dL (0.2-1.3); Total Protein 8.1 g/dL (6.3-8.2)
[2022-11-23 23:38] VITALS: BP 92/50; PULSE 104; RESP 18
== END 2022-11-23 23:38 | disposition home or self-care (01) ==
LOC: EC 17:48
DX: E10.65 Type 1 diabetes mellitus with hyperglycemia (principal); E10.21 Type 1 diabetes mellitus with diabetic nephropathy; E10.40 Type 1 diabetes mellitus with diabetic neuropathy, unspecified; E10.319 Type 1 diabetes mellitus with unspecified diabetic retinopathy without macular edema; I10 Essential (primary) hypertension; F41.9 Anxiety disorder, unspecified; F31.9 Bipolar disorder, unspecified; Z79.4 Long term (current) use of insulin; Z79.899 Other long term (current) drug therapy; Z88.0 Allergy status to penicillin; Z88.1 Allergy status to other antibiotic agents; Z88.2 Allergy status to sulfonamides; Z87.891 Personal history of nicotine dependence
CPT/HCPCS: 36415; 93005; 80053; 82803; 82009; 83605; 85025; 99284; 96374; 96375 ×2; 96361 ×3; J1200; J0780; J2765

== ENCOUNTER → 2023-07-09 | Outpatient (CLI) | payer OTHER ==
--- NOTE | 2023-07-09 12:57 | XR ---
EXAMINATION TYPE: XR knee limited RT DATE OF EXAM: 07/09/2023 12:21 PM CLINICAL INDICATION:Male, 37 years old with history of M25.561 Right knee pain; [facility] COMPARISON: None. TECHNIQUE: XR knee limited RT; examined in Frontal, lateral and oblique projections. FINDINGS: No evidence of any acute osseous pathology, soft tissue swelling, or joint effusion is no can. Minimal osteophyte formation involving the femoral condyles, tibial plateau and patella. Mild kayli int space narrowing. IMPRESSION: 1. No acute osseous pathology. 2. Mild changes.
== END | disposition home or self-care (01) ==
LOC: RADXRMAIN 11:54
PROVIDERS: ATTEND Family Medicine
DX: M25.561 Pain in right knee (principal)

== ENCOUNTER 2023-12-14 15:59 | Emergency (ER) | payer OTHER ==
--- NOTE | 2023-12-14 16:40 | ED ---
Extremity Problem HPI - General Chief complaint: Extremity Problem,Nontraumatic Stated complaint: ulcer on foot Time Seen by Provider: 12/14/23 16:12 Source: patient, RN notes reviewed Mode of arrival: ambulatory Limitations: no limitations - History of Present Illness Initial comments: This is a 38-year-old male who presents to the emergency department for right foot pain. He was in the ICU at [facility] 3 weeks ago for DKA. He developed a wound to the right foot then and was evaluated by Dr. Luu. He advised he follow-up with him in the office. However, he has not been able to get an appointment until later this week. The wound has since started to worsen. This is also somewhat painful and described as burning. He tried washing this out with old wound telephone cleaner and states that the skin started to bulge out of the ulcer. He has not measured any fevers or chills. Not currently being treated with antibiotics. - Related Data Home Medications Medication Instructions Recorded Confirmed Amitriptyline HCl [Elavil] 10 mg PO HS 03/17/18 11/23/22 Loratadine [Claritin] 10 mg PO DAILY 03/17/18 11/23/22 Albuterol Sulfate [Ventolin HFA] 2 puff INHALATION RT-Q6H PRN 07/25/21 11/23/22 Insulin Detemir (Levemir) [Levemir] 30 unit SQ HS PRN 07/25/21 11/23/22 Montelukast [Singulair] 10 mg PO DAILY 07/25/21 11/23/22 Ondansetron Odt [Zofran ODT] 4 mg PO DAILY 07/25/21 11/23/22 Cholecalciferol [Vitamin D3 (125 125 mcg PO DAILY 06/19/22 11/23/22 Mcg = 5000 Iu)] Fluticasone Propion/Salmeterol 2 puff INHALATION RT-BID 06/19/22 11/23/22 [Advair Hfa 45-21 Mcg Inhaler] Gabapentin [Neurontin] 800 mg PO TID 06/19/22 11/23/22 Ibuprofen [Motrin] 800 mg PO Q8H PRN 06/19/22 11/23/22 Insulin Aspart (For Pump) [NovoLOG 0.01 unit SQ-PUMP CONTINUOUS 06/19/22 11/23/22 (For Pump)] traZODone HCL [Desyrel] 100 mg PO HS 06/19/22 11/23/22 Famotidine [Pepcid] 40 mg PO DAILY 10/03/22 11/23/22 Metoclopramide [Reglan] 5 mg PO BID PRN 11/23/22 11/23/22 Pantoprazole [Protonix] 40 mg PO AC-BID 11/23/22 11/23/22 Sertraline [Zoloft] 50 mg PO DAILY 11/23/22 11/23/22 Previous Rx's Medication Instructions Recorded Clindamycin [Cleocin] 450 mg PO Q8H #63 capsule 10/20/22 Ciprofloxacin HCl [Cipro] 750 mg PO BID 14 Days #28 tab 12/14/23 Meloxicam [Mobic] 15 mg PO DAILY PRN #30 tab 12/14/23 clindamycin HCL 300 mg PO Q6H 14 Days #56 capsule 12/14/23 Allergies Allergy/AdvReac Type Severity Reaction Status Date / Time Penicillins Allergy Unknown Verified 11/23/22 21:50 Childhood sulfamethoxazole Allergy Rash/Hives Verified 11/23/22 21:50 [From Bactrim] trimethoprim [From Bactrim] Allergy Rash/Hives Verified 11/23/22 21:50 Review of Systems ROS Statement: Those systems with pertinent positive or pertinent negative responses have been documented in the HPI. ROS Other: All systems not noted in ROS Statement are negative. Past Medical History Past Medical History: Diabetes Mellitus, Hypertension, Renal Disease Additional Past Medical History / Comment(s): Pt had recent upper respiratory infection and was on antibiotics/steroids for this, IDDM type I, past DKA about 1.5 yrs ago, neuropathy bilateral legs and runs up L side of body/L arm, hand and L side of face, L eye diabetic retinopathy, diabetic nephropathy-elevated urine protein, benign nasal polyp History of Any Multi-Drug Resistant Organisms: None Reported Past Surgical History: Tonsillectomy Additional Past Surgical History / Comment(s): Closed reduction nasal bone fracture with fixation septoplasty/open reduction L malary zygomatic arch fracture. lymph node removal, September 2022 - left thigh Past Anesthesia/Blood Transfusion Reactions: No Reported Reaction Past Psychological History: Anxiety, Bipolar, Depression Smoking Status: Former smoker Past Alcohol Use History: None Reported Past Drug Use History: None Reported - Past Family History Father Family Medical History: No Reported History Additional Family Medical History / Comment(s): Father is healthy Mother Family Medical History: Diabetes Mellitus Additional Family Medical History / Comment(s): Gastric ulcer, one leg shorter, neuropathy involving arms. General Exam Limitations: no limitations General appearance: alert, in no apparent distress Head exam: Present: atraumatic, normocephalic, normal inspection Respiratory exam: Present: normal lung sounds bilaterally. Absent: respiratory distress, wheezes, rales, rhonchi, stridor Cardiovascular Exam: Present: regular rate, normal rhythm, normal heart sounds. Absent: systolic murmur, diastolic murmur, rubs, gallop, clicks Extremities exam: Present: other (Ulceration to the right foot with skin bulging through the center. No active drainage. No surrounding erythema or swelling.) Neurological exam: Present: alert, oriented X3, CN II-XII intact Psychiatric exam: Present: normal affect, normal mood Course Vital Signs 12/14/23 12/14/23 16:00 19:23 Temperature 98 F 98.4 F Pulse Rate 100 89 Respiratory 20 18 Rate Blood Pressure 117/66 109/76 O2 Sat by Pulse 97 99 Oximetry Medical Decision Making - Medical Decision Making This is a 38 year old male who presents to the emergency department for a right foot wound. Was pt. sent in by a medical professional or institution? @ -No Did you speak to anyone other than the patient for history? @ -No Did you review nursing and triage notes? @ -Yes, and I agree, it is accurate with regards to the patient's symptoms. Were old charts reviewed? @ -No Differential Diagnosis? @ -Differential Wound: Ulcer, cellulitis, abscess, burn, this is not meant to be an all-inclusive list. EKG interpreted by me (3pts min.)? @ -Not obtained X-rays interpreted by me (1pt min.)? @ -X-ray of the right foot obtained. My interpretation identifies no soft tissue swelling. CT interpreted by me (1pt min.)? @ -Not obtained U/S interpreted by me (1pt. min.)? @ -Not obtained What testing was considered but not performed? (CT, X-rays, U/S, labs)? Why? @ -None What meds were considered but not given? Why? @ -None Did you discuss the management of the patient with other professionals? @ -No Did you reconcile home meds? @ -No Was smoking cessation discussed for >3mins.? @ -No Was critical care preformed (if so, how long)? @ -No Were there social determinants of health that impacted care today? How? (Homelessness, low income, unemployed, alcoholism, drug addiction, transportation, low edu. Level, literacy, decrease access to med. care, [facility], rehab)? @ -No Was there de-escalation of care discussed even if they declined? (Discuss DNR or withdrawal of care, Hospice)? @ -No What co-morbidities impacted this encounter? (DM, HTN, Smoking, COPD, CAD, Cancer, CVA, Hep., AIDS, mental health diagnosis, sleep apnea, morbid obesity)? @ -DM Was patient admitted / discharged? @ -Discharged. Lab work demonstrates a mildly elevated CRP of 2.2 and was otherwise unremarkable. X-ray of the right foot reveals no soft tissue swelling, gas formation, or osseous destruction. Wound cultures obtained. Wound was cleansed and bandaged. Rx for Clindamycin and Cipro provided. Mobic prescribed for pain. He will follow up with Dr. Luu as scheduled in 2 days. Case discussed with ED attending Dr. Bell. Undiagnosed new problem with uncertain prognosis? @ -None Drug Therapy requiring intensive monitoring for toxicity (Heparin, Nitro, Insulin, Cardizem)? @ -None Were any procedures done? @ -None Diagnosis/symptom? @ -Diabetic ulcer Acute, or Chronic, or Acute on Chronic? @ -Acute Uncomplicated (without systemic symptoms) or Complicated (systemic symptoms)? @ -Uncomplicated Side effects of treatment? @ -None Exacerbation, Progression, or Severe Exacerbation] @ -Not applicable Poses a threat to life or bodily function? @ -Unlikely - Lab Data Result diagrams: 12/14/23 16:48 12/14/23 16:48 Lab Results 12/14/23 12/14/23 Range/Units 16:48 16:48 WBC 9.7 (3.8-10.6) k/uL RBC 4.32 (4.30-5.90) m/uL Hgb 13.8 (13.0-17.5) gm/dL Hct 40.5 (39.0-53.0) % MCV 93.8 (80.0-100.0) fL MCH 32.1 (25.0-35.0) pg MCHC 34.2 (31.0-37.0) g/dL RDW 12.8 (11.5-15.5) % Plt Count 286 (150-450) k/uL MPV 9.4 Neutrophils % 65 % Lymphocytes % 23 % Monocytes % 5 % Eosinophils % 6 % Basophils % 1 % Neutrophils # 6.2 (1.3-7.7) k/uL Lymphocytes # 2.2 (1.0-4.8) k/uL Monocytes # 0.5 (0-1.0) k/uL Eosinophils # 0.6 (0-0.7) k/uL Basophils # 0.1 (0-0.2) k/uL Sodium 139 (137-145) mmol/L Potassium 4.4 (3.5-5.1) mmol/L Chloride 106 (98-107) mmol/L Carbon Dioxide 27 (22-30) mmol/L Anion Gap 6 mmol/L BUN 18 (9-20) mg/dL Creatinine 0.83 (0.66-1.25) mg/dL Est GFR (CKD-EPI)AfAm >90 (>60 ml/min/1.73 sqM) Est GFR (CKD-EPI)NonAf >90 (>60 ml/min/1.73 sqM) Glucose 175 H (74-99) mg/dL Calcium 9.6 (8.4-10.2) mg/dL Total Bilirubin 0.6 (0.2-1.3) mg/dL AST 23 (17-59) U/L ALT 12 (4-49) U/L Alkaline Phosphatase 79 (38-126) U/L C-Reactive Protein 2.2 H (<1.0) mg/dL Total Protein 7.5 (6.3-8.2) g/dL Albumin 4.3 (3.5-5.0) g/dL - Radiology Data Radiology results: report reviewed, image reviewed Disposition Clinical Impression: Ulcer of foot, Diabetic ulcer of right foot Disposition: HOME SELF-CARE Instructions (If sedation given, give patient instructions): Diabetic Foot Ulcers (ED), Diabetes and Your Skin (ED) Additional Instructions: Return to the emergency department with any new, worsening, or concerning symptoms. Take both antibiotics as prescribed for 2 weeks. Take the Mobic once daily as needed for pain relief. Follow-up with Dr. Luu as scheduled. Prescriptions: Ciprofloxacin HCl [Cipro] 750 mg PO BID 14 Days #28 tab clindamycin HCL 300 mg PO Q6H 14 Days #56 capsule Meloxicam [Mobic] 15 mg PO DAILY PRN #30 tab PRN Reason: Pain Is patient prescribed a controlled substance at d/c from ED?: No Referrals: Jasmyne Robles [Primary Care Provider] - 1-2 days
[2023-12-14] MEDS: KETOROLAC 15 MG/ML 1 ML VIAL IVP STA (16:44)
[2023-12-14] MEDS: MORPHINE SULFATE 4 MG/ML SYRINGE IVP STA (16:45)
--- NOTE | 2023-12-14 17:16 | XR ---
EXAMINATION TYPE: XR foot complete RT DATE OF EXAM: 12/14/2023 5:12 PM CLINICAL INDICATION: Male, 38 years old with history of Foot wound; COMPARISON: 07/25/2021 TECHNIQUE: XR foot complete RT examined in the AP, oblique, and lateral projections. FINDINGS/IMPRESSION: Wound to the lateral aspect of the foot near the fifth metatarsal head. No evidence for osseous erosi on. No subcutaneous gas. No evidence of fracture.
[2023-12-14 17:21] LABS: Basophils # (A) 0.1 k/uL (0-0.2); Basophils % (A) 1 %; Eosinophils # (A) 0.6 k/uL (0-0.7); Eosinophils % (A) 6 %; HCT 40.5 % (39.0-53.0); HGB 13.8 gm/dL (13.0-17.5); Lymphocytes # (A) 2.2 k/uL (1.0-4.8); Lymphocytes % (A) 23 %; MCH 32.1 pg (25.0-35.0); MCHC 34.2 g/dL (31.0-37.0); MCV 93.8 fL (80.0-100.0); Mean Platelet Volume 9.4; Monocytes # (A) 0.5 k/uL (0-1.0); Monocytes % (A) 5 %; Neutrophils # (A) 6.2 k/uL (1.3-7.7); Neutrophils % (A) 65 %; Platelet Count 286 k/uL (150-450); RBC 4.32 m/uL (4.30-5.90); RDW 12.8 % (11.5-15.5); WBC 9.7 k/uL (3.8-10.6)
[2023-12-14 17:34] LABS: ALT 12 U/L (4-49); AST 23 U/L (17-59); African American GFR (CKD) >90 (>60 ml/min/1.73 sqM); Albumin 4.3 g/dL (3.5-5.0); Alkaline Phosphatase 79 U/L (38-126); Anion Gap 6 mmol/L; Blood Urea Nitrogen 18 mg/dL (9-20); C Reactive Protein 2.2 mg/dL (<1.0); Calcium 9.6 mg/dL (8.4-10.2); Carbon Dioxide 27 mmol/L (22-30); Chloride 106 mmol/L (98-107); Glucose 175 mg/dL (74-99); Non-African American GFR(CKD) >90 (>60 ml/min/1.73 sqM); Potassium 4.4 mmol/L (3.5-5.1); Sodium 139 mmol/L (137-145); Total Bilirubin 0.6 mg/dL (0.2-1.3); Total Protein 7.5 g/dL (6.3-8.2)
[2023-12-14] MEDS: CLINDAMYCIN 150 MG CAP PO STA (18:54)
[2023-12-14] MEDS: CIPROFLOXACIN HCL 250 MG TAB PO STA (18:55)
[2023-12-14] MEDS: traMADol 50 MG STARTER PACK 3 TAB BTL PO STA (18:56)
[2023-12-14 19:24] VITALS: BP 109/76; PULSE 89; RESP 18; TEMP 98.4
[2023-12-15 02:19] LABS: Erythrocyte Sedimentation Rate 40 mm/Hr (0-15)
== END 2023-12-14 19:24 | disposition home or self-care (01) ==
LOC: EC 15:59
DX: L97.519 Non-pressure chronic ulcer of other part of right foot with unspecified severity (principal); E10.621 Type 1 diabetes mellitus with foot ulcer; Z87.891 Personal history of nicotine dependence; Z88.0 Allergy status to penicillin; Z88.1 Allergy status to other antibiotic agents; Z88.2 Allergy status to sulfonamides
CPT/HCPCS: 36415; 80053; 85652; 85025; 86140; 87070; 87205; 87075; 87077; 87186; 73630; 99284; 96374; 96375; J2270; J1885

== ENCOUNTER 2024-04-18 12:26 | Inpatient (IN) | payer OTHER ==
--- NOTE | 2024-04-18 13:00 | ED ---
Skin/Abscess/FB HPI - General Source: patient, RN notes reviewed Mode of arrival: ambulatory Limitations: no limitations <Alexia Groves - Last Filed: 04/18/24 12:58> <Angela Ramos - Last Filed: 04/19/24 18:55> - General Chief complaint: Skin/Abscess/Foreign Body Stated complaint: Right foot wound Time Seen by Provider: 04/18/24 12:58 - History of Present Illness Initial comments: Quick [id number] male with history of type 1 diabetes presenting for right foot wound. Patient reports he regularly sees wound care for diabetic ulcerations on his feet. States he has a history of amputations and bone infe ctions. He has had a wound on his right toe that has been present for several months, however over the past couple of days has been worsening. Earliest wound care appointment the second week of April. (Alexia Groves) Patient is a 38-year-old gentleman with past medical history of type 1 diabetes presenting for right foot wound. Patient states that this wound began about 7 months ago and he was hospitalized previously for osteomyelitis, ultimately was discharged on IV antibiotics and oral doxycycline. Patient continues to take oral doxycycline and sees a wound care nurse however 2 weeks ago a blister formed over the old wound, popped and had thick discharge. He is wound care nurse has been try to care for it however has not improved so sent him to the emergency department. Patient denies any fevers, chills, body aches nausea, vomiting, diarrhea. Endorses 9 out of 10 point in his right foot. States that he is also recently homeless send and endorses suicidal ideation but denies any plan. (Angela Ramos) - Related Data Home Medications Medication Instructions Recorded Confirmed Loratadine [Claritin] 10 mg PO DAILY 03/17/18 04/18/24 Albuterol Sulfate [Ventolin HFA] 1 puff INHALATION RT-Q4H PRN 07/25/21 04/18/24 Montelukast [Singulair] 10 mg PO DAILY 07/25/21 04/18/24 Ondansetron Odt [Zofran ODT] 4 mg PO DAILY PRN 07/25/21 04/18/24 Ibuprofen [Motrin] 800 mg PO TID PRN 06/19/22 04/18/24 Insulin Aspart (For Pump) [NovoLOG 0.01 unit SQ-PUMP CONTINUOUS 06/19/22 04/18/24 (For Pump)] Famotidine [Pepcid] 40 mg PO BID 10/03/22 04/18/24 Metoclopramide [Reglan] 5 mg PO DAILY PRN 11/23/22 04/18/24 Pantoprazole [Protonix] 40 mg PO BID 11/23/22 04/18/24 Baclofen [Lioresal] 10 mg PO BID 04/18/24 04/18/24 DULoxetine HCL [Cymbalta] 20 mg PO DAILY 04/18/24 04/18/24 DULoxetine HCL [Cymbalta] 30 mg PO DAILY 04/18/24 04/18/24 Doxycycline Hyclate 100 mg PO BID 04/18/24 04/18/24 Fluticasone Nasal [place] [Flonase 1 spr EA NOSTRIL DAILY 04/18/24 04/18/24 Nasal [place]] Gabapentin [Neurontin] 400 mg PO TID 04/18/24 04/18/24 Ketorolac 0.5% Ophth Soln [Acular 1 drop LEFT EYE QID 04/18/24 04/18/24 0.5%] Levalbuterol Tartrate 2 puff INHALATION RT-Q4H PRN 04/18/24 04/18/24 [Levalbuterol Tartrate 45 MCG Hfa] Losartan [Cozaar] 12.5 mg PO DAILY 04/18/24 04/18/24 Mirtazapine [Remeron] 15 mg PO HS 04/18/24 04/18/24 Pregabalin [Lyrica] 100 mg PO TID 04/18/24 04/18/24 SUMAtriptan succinate [Imitrex] 50 mg PO DAILY PRN 04/18/24 04/18/24 hydrOXYzine HCL [Atarax] 25 mg PO BID PRN 04/18/24 04/18/24 hydrOXYzine HCL [Atarax] 50 mg PO HS 04/18/24 04/18/24 prednisoLONE ACETATE 1% OPHTH 1 drop LEFT EYE QID 04/18/24 04/18/24 [Pred Forte 1%] Allergies Allergy/AdvReac Type Severity Reaction Status Date / Time Penicillins Allergy Unknown Verified 04/18/24 18:11 Childhood sulfamethoxazole Allergy Rash/Hives Verified 04/18/24 18:11 [From Bactrim] trimethoprim [From Bactrim] Allergy Rash/Hives Verified 04/18/24 18:11 Review of Systems ROS Other: All systems not noted in ROS Statement are negative. <GermainAlexia - Last Filed: 04/18/24 12:58> ROS Other: All systems not noted in ROS Statement are negative. <Angela Ramos - Last Filed: 04/19/24 18:55> ROS Statement: Those systems with pertinent positive or pertinent negative responses have been documented in the HPI. Past Medical History Past Medical History: Diabetes Mellitus, Hypertension, Renal Disease Additional Past Medical History / Comment(s): Pt had recent upper respiratory infection and was on antibiotics/steroids for this, IDDM type I, past DKA about 1.5 yrs ago, neuropathy bilateral legs and runs up L side of body/L arm, hand and L side of face, L eye diabetic retinopathy, diabetic nephropathy-elevated urine protein, benign nasal polyp History of Any Multi-Drug Resistant Organisms: MRSA Date of last positivie culture/infection: 12/14/2023 MDRO Source:: right food wound Past Surgical History: Tonsillectomy Additional Past Surgical History / Comment(s): Closed reduction nasal bone fracture with fixation septoplasty/open reduction L malary zygomatic arch fracture. lymph node removal, September 2022 - left thigh Past Anesthesia/Blood Transfusion Reactions: No Reported Reaction Past Psychological History: Anxiety, Bipolar, Depression Smoking Status: Former smoker Past Alcohol Use History: None Reported Past Drug Use History: Marijuana - Past Family History Father Family Medical History: No Reported History Additional Family Medical History / Comment(s): Father is healthy Mother Family Medical History: Diabetes Mellitus Additional Family Medical History / Comment(s): Gastric ulcer, one leg shorter, neuropathy involving arms. <GermainAlexia - Last Filed: 04/18/24 12:58> General Exam Limitations: no limitations <GermainAlexia - Last Filed: 04/18/24 12:58> <Angela Ramos - Last Filed: 04/19/24 18:55> - General Exam Comments Initial Comments: Visual Physical Exam Vital signs reviewed General: Well-appearing, nontoxic, no acute distress. Head: Normocephalic, atraumatic Eyes: PERRLA, EOMI ENT: Airway patent Chest: Nonlabored breathing Skin: No visual rash, normal skin tone Neuro: Alert and oriented 3 Musculoskeletal: No gross abnormalities (Alexia Groves) PE: CONSTITUTIONAL: No apparent distress, well appearing SKIN: Warm, dry, no jaundice, hives or petechiae, 1.5 cm in diameter circular wound to the lateral aspect of the right forefoot, thick yellow discharge with mild erythema present EYES: Pupils are equally round, extraocular movements intact without nystagmus, clear conjunctiva, non-icteric sclera HENT: Normocephalic, atraumatic, moist mucus membranes, oropharynx clear without exudates NECK: , Full range of motion, normal appearance PULMONARY: Clear to auscultation without wheezes, rhonchi, or rales, normal excursion, no accessory muscle use and no stridor CARDIOVASCULAR: Regular rate, rhythm, normal S1 and S2. No appreciated murmurs, rubs or gallops. No lower extremity edema, 2+ dorsalis pedis pulses palpable with intact distal perfusion GASTROINTESTINAL: Soft, active bowel sounds throughout, non-tender, non- distended, no palpable masses, no rebound or guarding. No hepatosplenomegaly GENITOURINARY: MUSCULOSKELETAL: Extremities have no gross deformity, No calf swelling NEUROLOGIC:_a/o x 3, GCS 15, normal mentation and speech. Moves all extremities x 4 without motor or sensory deficit, decree sensation to light touch at the distal bilateral lower extremities due to chronic neuropathy PSYCHIATRIC: Sad mood and affect, thought process is clear and linear, endorses suicidal thoughts but denies active plan (Angela Ramos) Course Vital Signs 04/18/24 04/18/24 04/18/24 12:34 18:50 22:20 Temperature 97.5 F L 97.9 F Pulse Rate 99 78 81 Respiratory 16 16 18 Rate Blood Pressure 105/74 97/61 98/63 O2 Sat by Pulse 100 98 98 Oximetry 04/19/24 04/19/24 04/19/24 06:00 09:09 11:52 Temperature 97.6 F 97.5 F L Pulse Rate 92 83 78 Respiratory 18 15 18 Rate Blood Pressure 91/62 97/62 96/64 O2 Sat by Pulse 99 97 98 Oximetry 04/19/24 04/19/24 14:05 17:51 Temperature 97.6 F Pulse Rate 89 Respiratory 15 16 Rate Blood Pressure 97/81 O2 Sat by Pulse 99 Oximetry Medical Decision Making <Alexia Groves - Last Filed: 04/18/24 12:58> - Lab Data Result diagrams: 04/18/24 13:56 04/19/24 04:09 <Angela Ramos - Last Filed: 04/19/24 18:55> - Medical Decision Making I completed the quick note portion of this chart signed Alexia Groves PA-C (Alexia Groves) Was pt. sent in by a medical professional or institution (JAMAL Gómez, PHYSICAL THERAPIST AIDE, urgent care, hospital, or [facility]...) When possible be specific @ -Patient was sent in by his wound care nurse Did you speak to anyone other than the patient for history (EMS, parent, family, police, friend...)? What history was obtained from this source @ -No Did you review nursing and triage notes (agree or disagree)? Why? @ -I reviewed and agree with nursing and triage notes Were old charts reviewed (outside hosp., previous admission, EMS record, old EKG, old radiological studies, urgent care reports/EKG's, [facility] records)? Report findings @ -Medical records reviewed Differential Diagnosis (chest pain, altered mental status, abdominal pain women, abdominal pain men, vaginal bleeding, weakness, fever, dyspnea, syncope, headache, dizziness, GI bleed, back pain, seizure, CVA, palpatations, mental health, musculoskeletal)? Differential diagnosis remains broad over top considerations include cellulitis, osteomyelitis, abscess formation, this is not an all-inclusive list EKG interpreted by me (3pts min.). @ -As above X-rays interpreted by me (1pt min.). @No evidence of fracture or free air on x-ray of the foot CT interpreted by me (1pt min.). @ -None done U/S interpreted by me (1pt. min.). @ -None done What testing was considered but not performed or refused? (CT, X-rays, U/S, labs)? Why? @ -None What meds were considered but not given or refused? Why? @ -None Did you discuss the management of the patient with other professionals (professionals i.e. JAMAL Gómez, PHYSICAL THERAPIST AIDE, lab, RT, psych nurse, social services assistant, wash test checker, teacher, chief sustainability officer, case picker)? Give summary @ -No Was smoking cessation discussed for >3mins.? @ -No Was critical care preformed (if so, how long)? @ -No Were there social determinants of health that impacted care today? How? (Homelessness, low income, unemployed, alcoholism, drug addiction, transportation, low edu. Level, literacy, decrease access to med. care, senior living, rehab)? Patient is currently homeless Was there de-escalation of care discussed even if they declined (Discuss DNR or withdrawal of care, Hospice)? @ -No What co-morbidities impacted this encounter? (DM, HTN, Smoking, COPD, CAD, Cancer, CVA, ARF, Chemo, Hep., AIDS, mental health diagnosis, sleep apnea, morbid obesity)? @Diabetes mellitus type I, hypertension Was patient admitted / discharged? Hospital course, mention meds given and route, prescriptions, significant lab abnormalities, going to OR and other pertinent info. @Admission-patient is a pleasant 38-year-old gentleman past medical history diabetes presenting for acute worsening of chronic right foot wound. Patient initially and seen and assessed by triage provider, and did have an extensive waiting period in the waiting room due to ED at max surge capacity. I was able to assess the patient in a recliner in triage which she was agreeable with providing history and obtaining physical exam. Complete physical exam performed , significant findings as noted above. ` X-ray findings osteomyelitis. Discussed with patient plan for admission out of concern for osteomyelitis and failed outpatient treatment of his diabetic foot wound. Will consult psychiatry as well due to patient's passive suicidal ideation. Patient agreeable plan of care. Cefepime and vancomycin ordered. Morphine ordered for pain control. Case was discussed with Dr. Guerrero, who kindly accepts patient for admission. Patient was roomed and admission orders placed. Undiagnosed new problem with uncertain prognosis? @ -No Drug Therapy requiring intensive monitoring for toxicity (Heparin, Nitro, Insulin, Cardizem)? @ -No Were any procedures done? @ -No Diagnosis/symptom? @Osteomyelitis, suicidal thoughts Acute, or Chronic, or Acute on Chronic? @Acute Uncomplicated (without systemic symptoms) or Complicated (systemic symptoms)? Uncomplicated Side effects of treatment? @ -No Exacerbation, Progression, or Severe Exacerbation? @ -No Poses a threat to life or bodily function? How? (Chest pain, [place], [place], pneumonia, PE, COPD, DKA, ARF, appy, cholecystitis, CVA, Diverticulitis, Homicidal, Suicidal, threat to staff... and all critical care pts) @Yes, if allowed to progress untreated could lead to sepsis septic shock and . If suicidal thoughts left unaddressed could lead to active suicidal thoughts/plan and (Angela Ramos) - Lab Data Lab Results 04/18/24 04/18/24 04/18/24 Range/Units 13:56 13:56 13:56 WBC 9.3 (3.8-10.6) k/uL RBC 4.63 (4.30-5.90) m/uL Hgb 14.4 (13.0-17.5) gm/dL Hct 43.7 (39.0-53.0) % MCV 94.2 (80.0-100.0) fL MCH 31.1 (25.0-35.0) pg MCHC 33.0 (31.0-37.0) g/dL RDW 12.2 (11.5-15.5) % Plt Count 361 (150-450) k/uL MPV 8.4 Neutrophils % 63 % Lymphocytes % 27 % Monocytes % 5 % Eosinophils % 4 % Basophils % 1 % Neutrophils # 5.8 (1.3-7.7) k/uL Lymphocytes # 2.5 (1.0-4.8) k/uL Monocytes # 0.4 (0-1.0) k/uL Eosinophils # 0.4 (0-0.7) k/uL Basophils # 0.1 (0-0.2) k/uL Sodium 134 L (137-145) mmol/L Potassium 4.6 (3.5-5.1) mmol/L Chloride 99 (98-107) mmol/L Carbon Dioxide 25 (22-30) mmol/L Anion Gap 10 mmol/L BUN 16 (9-20) mg/dL Creatinine 0.76 (0.66-1.25) mg/dL Est GFR (CKD-EPI)AfAm >90 (>60 ml/min/1.73 sqM) Est GFR (CKD-EPI)NonAf >90 (>60 ml/min/1.73 sqM) Glucose 333 H (74-99) mg/dL POC Glucose (mg/dL) (70-110) mg/dL POC Glu Rough Rounder Machine ID Plasma Lactic Acid Sanjay 1.0 (0.7-2.0) mmol/L Calcium 9.4 (8.4-10.2) mg/dL Total Bilirubin 0.8 (0.2-1.3) mg/dL AST 26 (17-59) U/L ALT 16 (4-49) U/L Alkaline Phosphatase 124 (38-126) U/L C-Reactive Protein 1.2 H (<1.0) mg/dL Total Protein 7.9 (6.3-8.2) g/dL Albumin 4.5 (3.5-5.0) g/dL 04/18/24 04/19/24 Range/Units 20:23 04:09 WBC (3.8-10.6) k/uL RBC (4.30-5.90) m/uL Hgb (13.0-17.5) gm/dL Hct (39.0-53.0) % MCV (80.0-100.0) fL MCH (25.0-35.0) pg MCHC (31.0-37.0) g/dL RDW (11.5-15.5) % Plt Count (150-450) k/uL MPV Neutrophils % % Lymphocytes % % Monocytes % % Eosinophils % % Basophils % % Neutrophils # (1.3-7.7) k/uL Lymphocytes # (1.0-4.8) k/uL Monocytes # (0-1.0) k/uL Eosinophils # (0-0.7) k/uL Basophils # (0-0.2) k/uL Sodium (137-145) mmol/L Potassium (3.5-5.1) mmol/L Chloride (98-107) mmol/L Carbon Dioxide (22-30) mmol/L Anion Gap mmol/L BUN (9-20) mg/dL Creatinine 0.67 (0.66-1.25) mg/dL Est GFR (CKD-EPI)AfAm >90 (>60 ml/min/1.73 sqM) Est GFR (CKD-EPI)NonAf >90 (>60 ml/min/1.73 sqM) Glucose (74-99) mg/dL POC Glucose (mg/dL) 163 H (70-110) mg/dL POC Glu Rough Rounder Machine ID Consuelo De La Vega Plasma Lactic Acid Sanjay (0.7-2.0) mmol/L Calcium (8.4-10.2) mg/dL Total Bilirubin (0.2-1.3) mg/dL AST (17-59) U/L ALT (4-49) U/L Alkaline Phosphatase (38-126) U/L C-Reactive Protein (<1.0) mg/dL Total Protein (6.3-8.2) g/dL Albumin (3.5-5.0) g/dL Disposition <Alexia Groves - Last Filed: 04/18/24 12:58> <Angela Ramos - Last Filed: 04/19/24 18:55> Clinical Impression: Osteomyelitis Disposition: ADMITTED IP TO THIS HOSP Condition: Stable
[2024-04-18 14:02] LABS: Basophils # (A) 0.1 k/uL (0-0.2); Basophils % (A) 1 %; Eosinophils # (A) 0.4 k/uL (0-0.7); Eosinophils % (A) 4 %; HCT 43.7 % (39.0-53.0); HGB 14.4 gm/dL (13.0-17.5); Lymphocytes # (A) 2.5 k/uL (1.0-4.8); Lymphocytes % (A) 27 %; MCH 31.1 pg (25.0-35.0); MCV 94.2 fL (80.0-100.0); Mean Platelet Volume 8.4; Monocytes # (A) 0.4 k/uL (0-1.0); Monocytes % (A) 5 %; Neutrophils # (A) 5.8 k/uL (1.3-7.7); Neutrophils % (A) 63 %; Platelet Count 361 k/uL (150-450); RBC 4.63 m/uL (4.30-5.90); RDW 12.2 % (11.5-15.5); WBC 9.3 k/uL (3.8-10.6)
[2024-04-18 14:22] LABS: ALT 16 U/L (4-49); AST 26 U/L (17-59); African American GFR (CKD) >90 (>60 ml/min/1.73 sqM); Albumin 4.5 g/dL (3.5-5.0); Alkaline Phosphatase 124 U/L (38-126); Anion Gap 10 mmol/L; Blood Urea Nitrogen 16 mg/dL (9-20); C Reactive Protein 1.2 mg/dL (<1.0); Calcium 9.4 mg/dL (8.4-10.2); Carbon Dioxide 25 mmol/L (22-30); Chloride 99 mmol/L (98-107); Glucose 333 mg/dL (74-99); Non-African American GFR(CKD) >90 (>60 ml/min/1.73 sqM); Potassium 4.6 mmol/L (3.5-5.1); Sodium 134 mmol/L (137-145); Total Bilirubin 0.8 mg/dL (0.2-1.3); Total Protein 7.9 g/dL (6.3-8.2)
--- NOTE | 2024-04-18 15:48 | XR ---
EXAMINATION TYPE: XR foot complete RT DATE OF EXAM: 04/18/2024 COMPARISON: 12/14/2023 CLINICAL INDICATION: Male, 38 years old with pain, history of right foot infection; TECHNIQUE: 3 views FINDINGS: There is a wound/ulcer along the lateral forefoot overlying the fifth metatarsal head. On t he oblique and lateral views, suggests subtle focal osteolysis of the cortical margin of the fifth me tatarsal head. No acute fracture, subluxation, dislocation. IMPRESSION: Wound/ulcer along the lateral forefoot. There is subtle focal osteolysis of the underlying fifth meta tarsal head on the oblique and lateral views. Findings highly suspicious for a contiguous osteomyelit is. [facility], , 04/18/2024 3:46 PM
[2024-04-18] MEDS ORDERED: VANCOMYCIN IV PER PHARMACY 1 EACH MISC MISCELLANE PRN (16:44)
[2024-04-18] MEDS ORDERED: NALOXONE 0.4 MG/ML 1 ML VIAL IV PRN (18:43)
[2024-04-18] MEDS ORDERED: ACETAMINOPHEN TAB 325 MG TAB PO PRN (18:43)
[2024-04-18] MEDS ORDERED: MAG HYDROX/AL HYDROX/SIMETH 30 ML CUP PO PRN (18:43)
[2024-04-18] MEDS ORDERED: CALCIUM CARBONATE 500 MG CHEWABLE PO PRN (18:43)
[2024-04-18] MEDS ORDERED: SUMAtriptan succinate 50 MG TAB PO PRN (18:47)
[2024-04-18] MEDS ORDERED: ALBUTEROL HFA INHALER INHALATION PRN (18:47)
[2024-04-18] MEDS: ONDANSETRON 4 MG/2 ML VIAL IVP STA (18:48)
[2024-04-18] MEDS: MORPHINE SULFATE 4 MG/ML SYRINGE IVP STA (18:48)
[2024-04-18] MEDS: CEFEPIME 2 GM in SODIUM CHLORIDE 0.9% 100 ML IVPB STA (18:49)
[2024-04-18] MEDS: VANCOMYCIN 1,250 MG in SODIUM CHLORIDE 0.9% 250 ML IVPB STA (19:15)
[2024-04-18 20:25] LABS: Glucose,Whole Blood 163 mg/dL (70-110)
[2024-04-18] MEDS: INSPUCOR MISCELLANE PRN (20:30)
[2024-04-18] MEDS: Insulin Aspart (For Pump) 100 UNIT/ML VIAL SQ-PUMP SCH (21:10)
[2024-04-18] MEDS ORDERED: GABAPENTIN 400 MG CAP PO SCH (22:00)
[2024-04-18] MEDS: hydrOXYzine HCL 25 MG TAB PO SCH (22:13)
[2024-04-18] MEDS: MIRTAZAPINE 15 MG TAB PO SCH (22:13)
[2024-04-18] MEDS: PREGABALIN 100 MG CAP PO SCH (22:13)
[2024-04-18] MEDS: FAMOTIDINE 20 MG TAB PO SCH (22:13)
[2024-04-18] MEDS: BACLOFEN 10 MG TAB PO SCH (22:13)
[2024-04-18] MEDS: prednisoLONE ACETATE 1% OPHTH DROPS 5 ML BTL LEFT EYE SCH (22:14)
[2024-04-18] MEDS: INSULIN ASPART (NovoLOG) 100 UNIT/ML VIAL SQ SCH (22:36)
[2024-04-19] MEDS: VANCOMYCIN 1,250 MG in SODIUM CHLORIDE 0.9% 250 ML IVPB SCH (04:22)
[2024-04-19 04:43] LABS: African American GFR (CKD) >90 (>60 ml/min/1.73 sqM); Non-African American GFR(CKD) >90 (>60 ml/min/1.73 sqM)
[2024-04-19] MEDS: ENOXAPARIN 40 MG/0.4 ML SYRINGE SQ SCH (09:11)
[2024-04-19] MEDS: LOSARTAN 25 MG TAB PO SCH (09:12)
[2024-04-19] MEDS: DULoxetine HCL 30 MG CAPSULE.DR PO SCH (09:12)
[2024-04-19] MEDS: MONTELUKAST 10 MG TAB PO SCH (09:12)
[2024-04-19] MEDS: FLUTICASONE NASAL 50MCG/SPRAY 16GM BTL EA NOSTRIL SCH (09:13)
[2024-04-19] MEDS: DULoxetine HCL 20 MG CAPSULE.DR PO SCH (09:13)
[2024-04-19] MEDS: LORATADINE 10 MG TAB PO SCH (09:13)
[2024-04-19] MEDS: traMADol 50 MG TAB PO PRN (09:38)
[2024-04-19] MEDS: METOCLOPRAMIDE 5 MG TAB PO PRN (09:39)
--- NOTE | 2024-04-19 13:14 | P.CN ---
Psychiatric Consult - . Consult:: IDENTIFYING DATA: This patient is a 38 year old male with a history depression and Type I diabetes who presented to the ER with concern for a foot wound. REASON FOR REFERRAL: Psychiatry was consulted for suicidal ideation HISTORY OF PRESENT ILLNESS: Mr. Paxton Cherry is a 38 year old man with a history of depression, anxiety, and Type I diabetes complicated by diabetic retinopathy, nephropathy, neuropathy, recurrent wound infections, and osteomyelitis who presented to the ER on the afternoon of 04/18/24 due to concern for a worsening right foot wound. During the initial evaluation he also endorsed suicidal ideation which prompted a psychiatry consult. Mr. Cherry reports having had a difficult time over the last few days following the dissolution of his relationship. He had been residing with his former partner and her mother when several months ago his fo rmer partner's mother moved his partner's ex into the home which resulted in a tumultuous shift in his own relationship dynamic and ultimately the end of his relationship. As a result, he was no longer able to reside in his partners mother's home, and he has been living in his car for the last 3 days prior to coming into the emergency department. In the midst of this he explained that his emotions were high and he was feeling alone and distressed about how things ended with his relationship. He shared that the suicidal thoughts crept in and that is what he endorsed upon arrival to the ER yesterday. Since that time he has been able to reflect on his feelings and desires and recognized that suicide is not an option for him. He explained, "do I want to ? No. It's a stupid choice." Prior to coming to the ER yesterday, he was feeling alone and isolated and this was a significant contributing factor to his emotions. Since then, he and his ex-partner have reconciled, agreeing they will move forward as friends. Two other friends reached out to him to check on him and offer their support in the midst of what he is going through, which was another reminder that he is cared about and is not alone. He denies experiencing suicidal intent or plan when he came to the ER, and at present he denies suicidal ideation, intent, and plan. He also denies homicidal ideation, intent, or plan. Mr. Cherry is presently receiving care for his depression through [facility]; he meets with his therapist on a weekly basis and sees his psychiatrist approximately every 1 to 3 months. He has been on Cymbalta 50 mg daily for about 3 months and did note that he ran out of the medication a few days ago which he thinks also contributed to his decline in mood. In addition to Cymbalta he has also been taking mirtazapine to help with sleep and mood. He denies present in September with anhedonia; he enjoys spending time creating art and listening to music. His energy level has been a little lower recently but this is not the norm for him. This is that he sometimes has difficulty with anxiety particularly over thinking and ruminating thoughts. He has found improvement in his mental health symptoms overall since starting the Cymbalta. Denies having experienced any auditory or visual hallucinations. He does report a history of "bipolar disorder", though we discussed the specific symptoms of armando he denies having had any prolonged periods without sleep that resulted in an increase in goal-directed activity with persistently elevated or irritable mood. No history of disordered eating behavior. No history of obsessive/compulsive symptoms. At present he uses manic medical marijuana on a daily basis. He used to be a cigarette smoker but quit several years ago; he does occasionally use a vape. He also reports having been an alcoholic in the past but quit alcohol several years ago as well. He previously used cocaine in social settings but lasted that about 6 years ago. He is not presently employed and is currently on his fourth appeal in his pursuit to get disability. PAST PSYCHIATRIC HISTORY: Patient has a history of depression, "social anxiety, manic depression, and bipolar disorder". He is presently engaged in treatment through [facility] and sees his therapist Endy on a weekly basis. He last saw his psychiatric prescriber about 1 month ago. He denies any history of inpatient hospitalization. He has had 1 prior suicide attempt at age 16 via interrupted hanging following the of his grandfather during which he was significantly distraught. Mom walked in the bathroom and interrupted the event. PAST MEDICAL HISTORY: Type I Diabetes complicated by recurrent wound infections and osteomyelitis, retinopathy, nephropathy, neuropathy. Prior nasal fracture requiring surgical repair. ALLERGIES: as per EMR. CHEMICAL DEPENDENCY HISTORY: as per HPI. FAMILY PSYCHIATRIC/SUBSTANCE USE HISTORY: No known family history of suicide attempts or completed suicides. Mom has a history of anxiety and is on Xanax. SOCIAL HISTORY: Presently homeless since being asked to leave his ex-partner's mother's house three days ago. Has four children, none are presently in his ustody. Completed high school and one year of culinary school. No firearms (patient has a felony and is unable to have firearms). Not currently employed. Applying for disability. MENTAL STATUS EXAM: General Appearance: Patient appears to be stated age is alert, pleasant, and cooperative. Patient appears to have fair hygiene and grooming wearing hospital gown with good eye contact. Multiple tattoos on hands, arms, neck, and face Behavior: Patient is calmly sitting up in bed without any agitated behavior. Speech: Patient's speech is fluent and nonpressured. Mood/Affect: Patient reports their mood is "anxious", affect is calm, constricted Suicidality/Homicidality: Patient denies having any suicidal or homicidal ideation, intent, or plan. Perceptions: Patient denies any visual hallucinations and denies any auditory hallucinations Though content/process: There is no evidence of any delusional thought content and thought process is linear and goal-directed. Memory and concentration: AOX3, grossly intact for the purposes of this session. Able to recall recent and remote events with accuracy. Judgment and insight: Fair IMPRESSIONS: Major depressive disorder, recurrent, moderate Cannabis Use Nicotine Use PLAN: -At this time patient DOES NOT meet criteria for inpatient psychiatric admission. -Would recommend the following medication changes/additions: Increase Cymbalta to 90 mg daily and continue Mirtazapine 15 mg at bedtime -Can discontinue 1:1 sitter at this time as patient is not currently an imminent threat to themselves -Patient is presently engaged in outpatient mental health care through [facility]; encouraged him to call his therapist for support -Communicated plan to patient's nurse -Psychiatry will sign off at this time -Please contact with any questions. 04/19/24 13:10 04/19/24 13:10
--- NOTE | 2024-04-19 15:04 | P.HPIM ---
History of Present Illness H&P Date: 04/19/24 Chief Complaint: Right foot wound Patient is a 38 year old male with past medical history of insulin dependent diabetes mellitus type 1, diabetic retinopathy, diabetic kidney disease, DKA, hypertension presented to the ED with right foot wound. Patient reports having a wound on lateral side right foot below the little toe. He first noticed the wound a week ago. The pain has been worsening over the past couple of days and he noticed a blister that popped and had a thick discharge. He endorses 9/10 severity of pain currently in the right foot. He mentions being hospitalised for similar diabetic ulcers in the past 3 years. He reports undergoing amputation of the right fifth toe over a year ago as the ulcer had led to osteomyelitis and was treated with lots of antibiotics. He is currently on Doxycycline at home. He sees a wound care nurse. He mentions of an extensive family history of Diabetes mellitus. Additionally, he reports having asthma as a childhe states he has been feeling depressed lately and has suicidal ideation. He does have a prior suicide attempt but does not have a plan currently. Denies fever, chills, shortness of breath, cough, chest pain, palpitations, abdominal pain, nausea, vomiting, hematuria, dysuria, hematochezia, melena, headache, slurred speech, numbness, tingling, dizziness, lightheadedness. ED documentation reviewed. In the ED patient was treated with cefepime, vancomycin, morphine, Zofran, Tums, Maalox. Vitals on admission T 97.5 F, CA 99 bpm, RR 16, BP 105/74, O2 sat 100% on room air Foot x-ray shows wound/ulcer along the lateral foot, there is subtle focal osteolysis of the underlying fifth metatarsal head on the oblique and lateral views, findings highly suspicious for contiguous osteomyelitis Labs on admission show WBC 9.3, hemoglobin 14.4, sodium 134, potassium 4.6, creatinine 0.76, glucose 333, lactic acid 1.0, CRP 1.2 Review of systems: Pertinent positives and negatives as discussed in HPI, a complete review of systems was performed and all other systems are negative. Social history: Tobacco: Former smoker, smoked since 2003, a pack every 3 days Alcohol: Prior use Recreational drugs: Medical Marijuana Travel: No recent travel history Sick contacts: None Physical examination: Vital signs reviewed General: nontoxic, no distress, appears at stated age, normal BMI Derm: warm, dry, intact Head: atraumatic, normocephalic, symmetric Eyes: EOMI, anicteric sclera Mouth: no lip lesion, mucus membranes moist Cardiovascular: S1 S2 reg, no murmur Lungs: CTA bilateral, no rhonchi, no rales, no accessory muscle use Abdominal: soft, non-tender to palpation Extremities: Right foot wound, decreased sensation on b/l foot up to ankle, no cyanosis, clubbing, or pedal edema. Neuro: Alert, Oriented, Gross neurological examination did not reveal any focal deficits. Psych: well appearing, appropriate affect Assessment/Plan: Patient is a 38 year old male with past medical history of diabetes mellitus, diabetic retinopathy, diabetic nephropathy, DKA, hypertension presented to the ED with right foot wound. He has been admitted for osteomyelitis of the right fifth metatarsal and suicidal ideation. Active: #. Osteomyelitis of the right fifth metatarsal secondary to diabetic foot ulcer #. History of amputation and osteomyelitis #. Insulin dependent Diabetes mellitus, type 1 Foot x-ray shows wound/ulcer along the lateral foot, there is subtle focal osteolysis of the underlying fifth metatarsal head on the oblique and lateral views, findings highly suspicious for contiguous osteomyelitis Received Cefepime and Vancomycin in the ED Continue Vancomycin Continue Insulin pump Continue acetaminophen 60 mg p.o. every 6 hours as needed, ibuprofen 400 mg p.o. every 6 hours as needed, tramadol 50 mg p.o. every 6 hours as needed and Dilaudid 0.5 mg IVP Q6HR PRN for pain management Obtain aerobic and anaerobic wound culture Consult ID #. Mild hyponatremia Low Na 134 Monitor BMP #. Dyspepsia/indigestion Continue Tums 1000 mg p.o. every 4 hours as needed, Maalox 15 mL p.o. every 6 hours as needed #. Nausea and vomiting Continue prochlorperazine 5 mg p.o. every 8 hours as needed #. Suicidal ideation #. Major depressive disorder Suicide precautions Continue Mirtazapine 15 mg PO HS Psych consulted, recommend to increase Duloxetine to 90 mg PO daily and discontinue 1:1 sitter Outpatient mental health care at [facility] Chronic: #. Hypertension #. Neuropathy #. Migraine #. Allergic rhinitis #. Diabetic gastroparesis #. History of Asthma Continue home meds albuterol 1 puff every 4 hours as needed, baclofen 10 mg p.o. twice daily, fluticasone nasal spray, hydroxyzine 50 mg p.o. at bedtime, loratadine 10 mg p.o. daily, losartan 12.5 mg p.o. daily, metoclopramide 5 mg p.o. daily as needed, montelukast 10 mg p.o. daily prednisolone eyedrops, pregabalin 100 mg p.o. 3 times daily, sumatriptan 50 mg p.o. daily as needed F: None E: Replete as required N: Regular diet DVT prophylaxis: Lovenox 40 mg SQ daily, SCD GI prophylaxis: Famotidine 20 mg PO BID The patient is admitted with an anticipated more than 2 midnight stay for evaluation of right foot wound CODE STATUS: FULL CODE Discussed with: Patient Patient Anticipated discharge place: Home Attestation I have seen and examined this patient with my resident , discussed the same with the resident/IESHA, and agree with the dictator's assessment and plan as written Dr. Eamon rizzo Past Medical History Past Medical History: Diabetes Mellitus, Hypertension, Renal Disease Additional Past Medical History / Comment(s): Pt had recent upper respiratory infection and was on antibiotics/steroids for this, IDDM type I, past DKA about 1.5 yrs ago, neuropathy bilateral legs and runs up L side of body/L arm, hand and L side of face, L eye diabetic retinopathy, diabetic nephropathy-elevated urine protein, benign nasal polyp History of Any Multi-Drug Resistant Organisms: MRSA Date of last positivie culture/infection: 12/14/2023 MDRO Source:: right food wound Past Surgical History: Tonsillectomy Additional Past Surgical History / Comment(s): Closed reduction nasal bone fracture with fixation septoplasty/open reduction L malary zygomatic arch fracture. lymph node removal, September 2022 - left thigh Past Anesthesia/Blood Transfusion Reactions: No Reported Reaction Past Psychological History: Anxiety, Bipolar, Depression Smoking Status: Former smoker Past Alcohol Use History: None Reported Past Drug Use History: Marijuana - Past Family History Father Family Medical History: No Reported History Additional Family Medical History / Comment(s): Father is healthy Mother Family Medical History: Diabetes Mellitus Additional Family Medical History / Comment(s): Gastric ulcer, one leg shorter, neuropathy involving arms. Medications and Allergies Home Medications Medication Instructions Recorded Confirmed Type Loratadine [Claritin] 10 mg PO DAILY 03/17/18 04/18/24 History Albuterol Sulfate [Ventolin HFA] 1 puff INHALATION RT-Q4H PRN 07/25/21 04/18/24 History Montelukast [Singulair] 10 mg PO DAILY 07/25/21 04/18/24 History Ondansetron Odt [Zofran ODT] 4 mg PO DAILY PRN 07/25/21 04/18/24 History Ibuprofen [Motrin] 800 mg PO TID PRN 06/19/22 04/18/24 History Insulin Aspart (For Pump) [NovoLOG 0.01 unit SQ-PUMP CONTINUOUS 06/19/22 04/18/24 History (For Pump)] Famotidine [Pepcid] 40 mg PO BID 10/03/22 04/18/24 History Metoclopramide [Reglan] 5 mg PO DAILY PRN 11/23/22 04/18/24 History Pantoprazole [Protonix] 40 mg PO BID 11/23/22 04/18/24 History Baclofen [Lioresal] 10 mg PO BID 04/18/24 04/18/24 History DULoxetine HCL [Cymbalta] 20 mg PO DAILY 04/18/24 04/18/24 History DULoxetine HCL [Cymbalta] 30 mg PO DAILY 04/18/24 04/18/24 History Doxycycline Hyclate 100 mg PO BID 04/18/24 04/18/24 History Fluticasone Nasal [place] [Flonase 1 spr EA NOSTRIL DAILY 04/18/24 04/18/24 History Nasal [place]] Gabapentin [Neurontin] 400 mg PO TID 04/18/24 04/18/24 History Ketorolac 0.5% Ophth Soln [Acular 1 drop LEFT EYE QID 04/18/24 04/18/24 History 0.5%] Levalbuterol Tartrate 2 puff INHALATION RT-Q4H PRN 04/18/24 04/18/24 History [Levalbuterol Tartrate 45 MCG Hfa] Losartan [Cozaar] 12.5 mg PO DAILY 04/18/24 04/18/24 History Mirtazapine [Remeron] 15 mg PO HS 04/18/24 04/18/24 History Pregabalin [Lyrica] 100 mg PO TID 04/18/24 04/18/24 History SUMAtriptan succinate [Imitrex] 50 mg PO DAILY PRN 04/18/24 04/18/24 History hydrOXYzine HCL [Atarax] 25 mg PO BID PRN 04/18/24 04/18/24 History hydrOXYzine HCL [Atarax] 50 mg PO HS 04/18/24 04/18/24 History prednisoLONE ACETATE 1% OPHTH 1 drop LEFT EYE QID 04/18/24 04/18/24 History [Pred Forte 1%] Allergies Allergy/AdvReac Type Severity Reaction Status Date / Time Penicillins Allergy Unknown Verified 04/18/24 18:11 Childhood sulfamethoxazole Allergy Rash/Hives Verified 04/18/24 18:11 [From Bactrim] trimethoprim [From Bactrim] Allergy Rash/Hives Verified 04/18/24 18:11 Physical Exam Vitals: Vital Signs Temp Pulse Resp BP Pulse Ox 04/19/24 06:00 92 18 91/62 99 04/18/24 22:20 97.9 F 81 18 98/63 98 04/18/24 18:50 78 16 97/61 98 04/18/24 12:34 97.5 F L 99 16 105/74 100 Results CBC & Chem 7: 04/20/24 02:56 04/19/24 04:09 Labs: Abnormal Lab Results - Last 24 Hours (Table) 04/18/24 04/18/24 Range/Units 13:56 20:23 Sodium 134 L (137-145) mmol/L Glucose 333 H (74-99) mg/dL POC Glucose (mg/dL) 163 H (70-110) mg/dL C-Reactive Protein 1.2 H (<1.0) mg/dL
[2024-04-19] MEDS: HYDROmorphone 0.5 MG/0.5 ML SYRINGE IVP PRN (17:36)
[2024-04-19] MEDS: IBUPROFEN 400 MG TAB PO PRN (21:59)
[2024-04-20] MEDS: PROCHLORPERAZINE 5 MG TAB PO PRN (00:43)
[2024-04-20] MEDS: CEFEPIME 2 GM in SODIUM CHLORIDE 0.9% 100 ML IVPB SCH (02:10)
[2024-04-20 03:24] LABS: Glucose,Whole Blood 122 mg/dL (70-110)
[2024-04-20 04:01] LABS: HCT 38.8 % (39.0-53.0); HGB 12.8 gm/dL (13.0-17.5); MCH 31.5 pg (25.0-35.0); MCHC 32.9 g/dL (31.0-37.0); MCV 95.5 fL (80.0-100.0); Mean Platelet Volume 8.5; Platelet Count 301 k/uL (150-450); RBC 4.07 m/uL (4.30-5.90); RDW 12.2 % (11.5-15.5); WBC 5.9 k/uL (3.8-10.6)
[2024-04-20 06:56] LABS: Glucose,Whole Blood 94 mg/dL (70-110)
--- NOTE | 2024-04-20 08:53 | P.CONS ---
History of Present Illness - Reason for Consult Consult date: 04/19/24 Osteomyelitis Requesting physician: Angela Ramos - Chief Complaint Right foot wound pain x days - History of Present Illness Patient is a 38-year-old male with a past medical history significant for diabetes mellitus hypertension history of diabetic foot infection this patient has been dealing with a wound on the lateral aspect of the right foot for the patient was admitted at [facility] has been given a course of IV antibiotics and subsequently was advised a 3-month course of doxycycline by his ID physician the patient mention he was at the end of his 3 months or the last few days patient noticed to have blister at the right foot lateral border that have popped open and did have some drainage subsequent noticed to having increasing swelling and redness to the right foot lateral border area and also complaining of pain throbbing 9 out of 10 without any radiation. Denies high-grade fever or any chills and [facility] and no fever have been called subsequently patient was not tachycardic hypotensive or hypoxic patient did have white count of 9.3 creatinine 0.76 electrolyte has been normal liver enzymes are normal patient was started on vancomycin infectious disease was consulted for further management of antibiotic therapy patient did have x-ray of the right foot we did shows osteolysis of the fifth metatarsal head concerning for osteomyelitis Review of Systems Positive point and negatives has been mentioned in the HPI, complete review of systems was performed and all other systems are negative Past Medical History Past Medical History: Diabetes Mellitus, Hypertension, Renal Disease Additional Past Medical History / Comment(s): Pt had recent upper respiratory infection and was on antibiotics/steroids for this, IDDM type I, past DKA about 1.5 yrs ago, neuropathy bilateral legs and runs up L side of body/L arm, hand and L side of face, L eye diabetic retinopathy, diabetic nephropathy-elevated urine protein, benign nasal polyp History of Any Multi-Drug Resistant Organisms: MRSA Year Discovered:: 12/14/2023 MDRO Source:: right food wound Past Surgical History: Tonsillectomy Additional Past Surgical History / Comment(s): Closed reduction nasal bone fract ure with fixation septoplasty/open reduction L malary zygomatic arch fracture. lymph node removal, September 2022 - left thigh Past Anesthesia/Blood Transfusion Reactions: No Reported Reaction Past Psychological History: Anxiety, Bipolar, Depression Smoking Status: Former smoker Past Alcohol Use History: None Reported Past Drug Use History: Marijuana - Past Family History Father Family Medical History: No Reported History Additional Family Medical History / Comment(s): Father is healthy Mother Family Medical History: Diabetes Mellitus Additional Family Medical History / Comment(s): Gastric ulcer, one leg shorter, neuropathy involving arms. Medications and Allergies Home Medications Medication Instructions Recorded Confirmed Type Loratadine [Claritin] 10 mg PO DAILY 03/17/18 04/18/24 History Albuterol Sulfate [Ventolin HFA] 1 puff INHALATION RT-Q4H PRN 07/25/21 04/18/24 History Montelukast [Singulair] 10 mg PO DAILY 07/25/21 04/18/24 History Ondansetron Odt [Zofran ODT] 4 mg PO DAILY PRN 07/25/21 04/18/24 History Ibuprofen [Motrin] 800 mg PO TID PRN 06/19/22 04/18/24 History Insulin Aspart (For Pump) [NovoLOG 0.01 unit SQ-PUMP CONTINUOUS 06/19/22 04/18/24 History (For Pump)] Famotidine [Pepcid] 40 mg PO BID 10/03/22 04/18/24 History Metoclopramide [Reglan] 5 mg PO DAILY PRN 11/23/22 04/18/24 History Pantoprazole [Protonix] 40 mg PO BID 11/23/22 04/18/24 History Baclofen [Lioresal] 10 mg PO BID 04/18/24 04/18/24 History DULoxetine HCL [Cymbalta] 20 mg PO DAILY 04/18/24 04/18/24 History DULoxetine HCL [Cymbalta] 30 mg PO DAILY 04/18/24 04/18/24 History Doxycycline Hyclate 100 mg PO BID 04/18/24 04/18/24 History Fluticasone Nasal [place] [Flonase 1 spr EA NOSTRIL DAILY 04/18/24 04/18/24 History Nasal [place]] Gabapentin [Neurontin] 400 mg PO TID 04/18/24 04/18/24 History Ketorolac 0.5% Ophth Soln [Acular 1 drop LEFT EYE QID 04/18/24 04/18/24 History 0.5%] Levalbuterol Tartrate 2 puff INHALATION RT-Q4H PRN 04/18/24 04/18/24 History [Levalbuterol Tartrate 45 MCG Hfa] Losartan [Cozaar] 12.5 mg PO DAILY 04/18/24 04/18/24 History Mirtazapine [Remeron] 15 mg PO HS 04/18/24 04/18/24 History Pregabalin [Lyrica] 100 mg PO TID 04/18/24 04/18/24 History SUMAtriptan succinate [Imitrex] 50 mg PO DAILY PRN 04/18/24 04/18/24 History hydrOXYzine HCL [Atarax] 25 mg PO BID PRN 04/18/24 04/18/24 History hydrOXYzine HCL [Atarax] 50 mg PO HS 04/18/24 04/18/24 History prednisoLONE ACETATE 1% OPHTH 1 drop LEFT EYE QID 04/18/24 04/18/24 History [Pred Forte 1%] Allergies Allergy/AdvReac Type Severity Reaction Status Date / Time Penicillins Allergy Unknown Verified 04/18/24 18:11 Childhood sulfamethoxazole Allergy Rash/Hives Verified 04/18/24 18:11 [From Bactrim] trimethoprim [From Bactrim] Allergy Rash/Hives Verified 04/18/24 18:11 Physical Exam Vitals: Vital Signs Temp Pulse Resp BP Pulse Ox 04/19/24 09:09 97.6 F 83 15 97/62 97 04/19/24 06:00 92 18 91/62 99 04/18/24 22:20 97.9 F 81 18 98/63 98 04/18/24 18:50 78 16 97/61 98 04/18/24 12:34 97.5 F L 99 16 105/74 100 GENERAL DESCRIPTION: Middle-aged male lying in bed, no distress. No tachypnea or accessory muscle of respiration use. HEENT: Shows Pallor , no scleral icterus. Oral mucous membrane is dry. NECK: Trachea central, no thyromegaly. LUNGS: Unlabored breathing. Clear to auscultation anteriorly. No wheeze or crackle. HEART: S1, S2, regular rate and rhythm. No loud murmur ABDOMEN: Soft, no tenderness , guarding or rigidity, no organomegaly EXTREMITIES: Right foot lateral border wound did have slough tissue surrounding swelling redness deep culture obtained SKIN: No rash, no masses palpable. NEUROLOGICAL: The patient is awake, alert, oriented x3, mood and affect normal. Results CBC & Chem 7: 04/20/24 02:56 04/19/24 04:09 Labs: Abnormal Lab Results - Last 24 Hours (Table) 04/18/24 04/18/24 Range/Units 13:56 20:23 Sodium 134 L (137-145) mmol/L Glucose 333 H (74-99) mg/dL POC Glucose (mg/dL) 163 H (70-110) mg/dL C-Reactive Protein 1.2 H (<1.0) mg/dL Assessment and Plan (1) Diabetic ulcer of right foot Current Visit: Yes Status: Acute Code(s): E11.621 - TYPE 2 DIABETES MELLITUS WITH FOOT ULCER; L97.519 - NON-PRS CHRONIC ULCER OTH PRT RIGHT FOOT W UNSP SEVERITY SNOMED Code(s): 838787598 (2) Foot osteomyelitis, right Current Visit: Yes Status: Acute Code(s): M86.9 - OSTEOMYELITIS, UNSPECIFIED SNOMED Code(s): 6915060776506345 (3) Allergy to multiple antibiotics Current Visit: Yes Status: Acute Code(s): Z88.1 - ALLERGY STATUS TO OTHER ANTIBIOTIC AGENTS SNOMED Code(s): 947692590 (4) Diabetic foot infection Current Visit: No Status: Acute Code(s): E11.628 - TYPE 2 DIABETES MELLITUS WITH OTHER SKIN COMPLICATIONS; L08.9 - LOCAL INFECTION OF THE SKIN AND SUBCUTANEOUS TISSUE, UNSP SNOMED Code(s): 388937471 Plan: 1patient presented to hospital with worsening wound to the right foot lateral border with worsening pain swelling redness patient did have abnormal x-ray concerning for osteomyelitis in this patient has been on a prolonged course of oral doxycycline with failure of the outpatient antibiotics and a question of MRSA versus gram-negative infection. 2local culture has been obtained that will guide further antibiotic therapy 3vascular surgery evaluation for debridement of the wound and deep culture from the bone 4patient with multiple antibiotic ALLERGIES that would limit the number of antibiotic safe to use 5vancomycin pharmacy to dose target trough of 15 while watching kidney function and Vanco trough closely we will add cefepime for the gram-negative coverage We will follow on clinical condition and cultures to further adjust medication if needed Thank you for this consultation we will follow the patient along with you Dictation was produced using [employer] software. please excuse any grammatical, word or spelling errors. Time with Patient: Greater than 30
[2024-04-20] MEDS: DULoxetine HCL 30 MG CAPSULE.DR PO SCH (09:15)
[2024-04-20] MEDS: KETOROLAC 0.5% OPHTH DROPS 5 ML BTL LEFT EYE SCH (10:32)
[2024-04-20 11:38] LABS: Glucose,Whole Blood 120 mg/dL (70-110)
[2024-04-20] MEDS: VANCOMYCIN TROUGH DUE 1 EACH MISC MISCELLANE ONE (12:06)
--- NOTE | 2024-04-20 12:13 | P.PN ---
Subjective Progress Note Date: 04/20/24 Principal diagnosis: Hospital course: Patient is a 38 year old male with past medical history of insulin dependent diabetes mellitus type 1, diabetic retinopathy, diabetic kidney disease, DKA, hypertension presented to the ED with right foot wound. Patient reports having a wound on lateral side right foot below the little toe. He first noticed the wound a week ago. The pain has been worsening over the past couple of days and he noticed a blister that popped and had a thick discharge. He endorses 9/10 severity of pain currently in the right foot. He mentions being hospitalised for similar diabetic ulcers in the past 3 years. He reports undergoing amputation of the right fifth toe over a year ago as the ulcer had led to osteomyelitis and was treated with lots of antibiotics. He is currently on Doxycycline at home. He sees a wound care nurse. He mentions of an extensive family history of Diabetes mellitus. Additionally, he reports having asthma as a childhe states he has been feeling depressed lately and has suicidal ideation. He does have a prior suicide attempt but does not have a plan currently. Denies fever, chills, shortness of breath, cough, chest pain, palpitations, abdominal pain, nausea, vomiting, hematuria, dysuria, hematochezia, melena, headache, slurred speech, numbness, tingling, dizziness, lightheadedness. ED documentation reviewed. In the ED patient was treated with cefepime, vancomycin, morphine, Zofran, Tums, Maalox. Vitals on admission T 97.5 F, [place] 99 bpm, RR 16, BP 105/74, O2 sat 100% on room air Foot x-ray shows wound/ulcer along the lateral foot, there is subtle focal osteolysis of the underlying fifth metatarsal head on the oblique and lateral views, findings highly suspicious for contiguous osteomyelitis Labs on admission show WBC 9.3, hemoglobin 14.4, sodium 134, potassium 4.6, creatinine 0.76, glucose 333, lactic acid 1.0, CRP 1.2 04/20/24: Patient seen and examined today at bedside. He endorses shortness of breath but is currently saturating at 99% on room air. He continues to be on Vancomycin and Cefepime. Labs today show hemoglobin 12.8. Review of systems: Pertinent positives and negatives as discussed in HPI, a complete review of systems was performed and all other systems are negative. Vitals: Signs Reviewed Physical examination: Vital signs reviewed General: nontoxic, no distress, appears at stated age, normal BMI Derm: warm, dry, intact Head: atraumatic, normocephalic, symmetric Eyes: EOMI, anicteric sclera Mouth: no lip lesion, mucus membranes moist Cardiovascular: S1 S2 reg, no murmur Lungs: CTA bilateral, no rhonchi, no rales, no accessory muscle use Abdominal: soft, non-tender to palpation Extremities: Right foot wound bandaged, decreased sensation on b/l foot up to ankle, no cyanosis, clubbing, or pedal edema. Neuro: Alert, Oriented, Gross neurological examination did not reveal any focal deficits. Psych: well appearing, appropriate affect Assessment/Plan: Patient is a 38 year old male with past medical history of diabetes mellitus, diabetic retinopathy, diabetic nephropathy, DKA, hypertension presented to the ED with right foot wound. He has been admitted for osteomyelitis of the right fifth metatarsal and suicidal ideation. Active: #. Osteomyelitis of the right fifth metatarsal secondary to diabetic foot ulcer #. History of amputation and osteomyelitis #. Insulin dependent Diabetes mellitus, type 1 Foot x-ray shows wound/ulcer along the lateral foot, there is subtle focal osteolysis of the underlying fifth metatarsal head on the oblique and lateral views, findings highly suspicious for contiguous osteomyelitis Received Cefepime and Vancomycin in the ED Continue Vancomycin 1250 mg IVPB Q8HR and Cefepime 2gm IVPB Q8HR Continue Insulin pump Continue acetaminophen 60 mg p.o. every 6 hours as needed, ibuprofen 400 mg p.o. every 6 hours as needed, tramadol 50 mg p.o. every 6 hours as needed and Dilaudid 0.5 mg IVP Q6HR PRN for pain management Obtain aerobic and anaerobic wound culture Obtain ESR and CRP Obtain A1c Consult ID and Vascular surgery #. Mild hyponatremia Low Na 134 Monitor BMP #. Dyspepsia/indigestion Continue Tums 1000 mg p.o. every 4 hours as needed, Maalox 15 mL p.o. every 6 hours as needed #. Nausea and vomiting Continue Prochlorperazine 5 mg p.o. every 8 hours as needed #. Suicidal ideation #. Major depressive disorder Suicide precautions Continue Mirtazapine 15 mg PO HS Psych consulted, recommend to increase Duloxetine to 90 mg PO daily and discontinue 1:1 sitter Outpatient mental health care at [facility] Chronic: #. Hypertension #. Neuropathy #. Migraine #. Allergic rhinitis #. Diabetic gastroparesis #. History of Asthma Continue home meds albuterol 1 puff every 4 hours as needed, baclofen 10 mg p.o. twice daily, fluticasone nasal spray, hydroxyzine 50 mg p.o. at bedtime, loratadine 10 mg p.o. daily, losartan 12.5 mg p.o. daily, metoclopramide 5 mg p.o. daily as needed, montelukast 10 mg p.o. daily prednisolone eyedrops, pregabalin 100 mg p.o. 3 times daily, sumatriptan 50 mg p.o. daily as needed, Ketorolac eye drops left eye QID F: None E: Replete as required N: Regular diet DVT prophylaxis: Lovenox 40 mg SQ daily, SCD GI prophylaxis: Famotidine 20 mg PO BID Attestation I have seen and examined this patient with my resident , discussed the same with the resident/IESHA, and agree with the dictator's assessment and plan as written Dr. Eamon rizzo Objective - Vital Signs Vital signs: Vital Signs Temp 97.8 F 04/19/24 20:00 Pulse 72 04/20/24 03:20 Resp 14 04/20/24 03:20 BP 95/57 04/20/24 03:20 Pulse Ox 97 04/20/24 03:20 FiO2 Intake & Output 04/19/24 04/20/24 04/20/24 18:59 06:59 18:59 Intake Total 600 Balance 600 Weight 71.668 kg Intake: Intake, IV Titration 600 Amount Cefepime 2 gm In Sodium 100 Chloride 0.9% 100 ml @ 25 mls/hr IVPB Q8HR [facility] Rx# :[id number] Vancomycin 1,250 mg In 500 Sodium Chloride 0.9% 250 ml @ 125 mls/hr IVPB Q8H BRI Rx#:[id number] Other: # Voids 3 - Labs CBC & Chem 7: 04/21/24 06:34 04/21/24 06:34 Labs: Abnormal Lab Results - Last 24 Hours (Table) 04/20/24 04/20/24 Range/Units 02:56 03:22 RBC 4.07 L (4.30-5.90) m/uL Hgb 12.8 L (13.0-17.5) gm/dL Hct 38.8 L (39.0-53.0) % POC Glucose (mg/dL) 122 H (70-110) mg/dL Microbiology - Last 24 Hours (Table) 04/19/24 12:50 Gram Stain - Preliminary Foot - Right
[2024-04-20 12:26] LABS: African American GFR (CKD) >90 (>60 ml/min/1.73 sqM); Anion Gap 4 mmol/L; Blood Urea Nitrogen 7 mg/dL (9-20); Calcium 8.9 mg/dL (8.4-10.2); Carbon Dioxide 32 mmol/L (22-30); Chloride 105 mmol/L (98-107); Glucose 92 mg/dL (74-99); Non-African American GFR(CKD) >90 (>60 ml/min/1.73 sqM); Potassium 4.3 mmol/L (3.5-5.1); Sodium 141 mmol/L (137-145)
--- NOTE | 2024-04-20 15:08 | P.PN ---
Subjective Progress Note Date: 04/20/24 Principal diagnosis: Reason for follow-up is right diabetic foot ulcer/osteomyelitis Patient is a 38-year-old male with a past medical history significant for diabetes mellitus hypertension history of diabetic foot infection this patient has been dealing with a wound on the lateral aspect of the right foot previously treated at [facility], now presenting with worsening swelling redness and did have abnormal x-ray suggestive of osteomyelitis. On today's evaluation that is 04/20/2024,the patient denies any fever or any chills, patient is breathing comfortably on room air, the patient denies chest pain shortness of breath and no significant cough, patient denies abdominal pain, no nausea vomiting or diarrhea. Denies any worsening pain to the right foot. Patient white count is 5.8, creatinine 0.70 Vanco trough of 19 cultures are pending Objective - Vital Signs Vital signs: Vital Signs Temp 97.5 F L 04/20/24 07:25 Pulse 82 04/20/24 11:09 Resp 16 04/20/24 11:09 BP 100/52 04/20/24 07:25 Pulse Ox 99 04/20/24 07:25 FiO2 Intake & Output 04/19/24 04/20/24 04/20/24 18:59 06:59 18:59 Intake Total 600 Balance 600 Weight 71.668 kg Intake: Intake, IV Titration 600 Amount Cefepime 2 gm In Sodium 100 Chloride 0.9% 100 ml @ 25 mls/hr IVPB Q8HR BRI Rx# :[id number] Vancomycin 1,250 mg In 500 Sodium Chloride 0.9% 250 ml @ 125 mls/hr IVPB Q8H BRI Rx#:[id number] Other: # Voids 3 - Exam GENERAL DESCRIPTION: Middle-age male lying in bed in no distress RESPIRATORY SYSTEM: Unlabored breathing , decreased breath sounds at bases HEART: S1 S2 regular rate and rhythm , ABDOMEN: Soft , no tenderness EXTREMITIES: Right foot is currently dressed - Labs CBC & Chem 7: 04/20/24 02:56 04/20/24 10:38 Labs: Abnormal Lab Results - Last 24 Hours (Table) 04/20/24 04/20/24 04/20/24 Range/Units 02:56 03:22 10:38 RBC 4.07 L (4.30-5.90) m/uL Hgb 12.8 L (13.0-17.5) gm/dL Hct 38.8 L (39.0-53.0) % Carbon Dioxide 32 H (22-30) mmol/L BUN 7 L (9-20) mg/dL POC Glucose (mg/dL) 122 H (70-110) mg/dL 04/20/24 Range/Units 11:36 RBC (4.30-5.90) m/uL Hgb (13.0-17.5) gm/dL Hct (39.0-53.0) % Carbon Dioxide (22-30) mmol/L BUN (9-20) mg/dL POC Glucose (mg/dL) 120 H (70-110) mg/dL Microbiology - Last 24 Hours (Table) 04/19/24 12:50 Gram Stain - Preliminary Foot - Right Wound Culture - Preliminary Assessment and Plan (1) Diabetic ulcer of right foot Current Visit: Yes Status: Acute Code(s): E11.621 - TYPE 2 DIABETES MELLITUS WITH FOOT ULCER; L97.519 - NON-PRS CHRONIC ULCER OTH PRT RIGHT FOOT W UNSP SEVERITY SNOMED Code(s): 433599816 (2) Foot osteomyelitis, right Current Visit: Yes Status: Acute Code(s): M86.9 - OSTEOMYELITIS, UNSPECIFIED SNOMED Code(s): 0126102267341351 (3) Allergy to multiple antibiotics Current Visit: Yes Status: Acute Code(s): Z88.1 - ALLERGY STATUS TO OTHER ANTIBIOTIC AGENTS SNOMED Code(s): 322716821 (4) Diabetic foot infection Current Visit: No Status: Acute Code(s): E11.628 - TYPE 2 DIABETES MELLITUS WITH OTHER SKIN COMPLICATIONS; L08.9 - LOCAL INFECTION OF THE SKIN AND SUBCUTANEOUS TISSUE, UNSP SNOMED Code(s): 989270831 Plan: 1patient presented to hospital with worsening wound to the right foot lateral border with worsening pain swelling redness patient did have abnormal x-ray concerning for osteomyelitis in this patient has been on a prolonged course of oral doxycycline with failure of the outpatient antibiotics and a question of MRSA versus gram-negative infection. 2local culture has been obtained which are currently pending 3vascular surgery evaluation for debridement of the wound and deep culture from the bone currently pending 4patient with multiple antibiotic ALLERGIES that would limit the number of antibiotic safe to use 5patient to continue with vancomycin pharmacy to dose target trough of 15 and cefepime while waiting for the culture to finalize Dictation was produced using [employer] dictation software. please excuse any grammatical, word or spelling errors. Time with Patient: Less than 30
[2024-04-20 17:45] LABS: Glucose,Whole Blood 100 mg/dL (70-110)
[2024-04-21 07:18] LABS: HCT 41.2 % (39.0-53.0); HGB 13.2 gm/dL (13.0-17.5); MCH 30.7 pg (25.0-35.0); MCHC 32.2 g/dL (31.0-37.0); MCV 95.4 fL (80.0-100.0); Mean Platelet Volume 8.2; Platelet Count 299 k/uL (150-450); RBC 4.31 m/uL (4.30-5.90); RDW 12.2 % (11.5-15.5); WBC 5.4 k/uL (3.8-10.6)
[2024-04-21 07:40] LABS: African American GFR (CKD) >90 (>60 ml/min/1.73 sqM); Anion Gap 6 mmol/L; Blood Urea Nitrogen 6 mg/dL (9-20); Calcium 8.8 mg/dL (8.4-10.2); Carbon Dioxide 28 mmol/L (22-30); Chloride 101 mmol/L (98-107); Glucose 259 mg/dL (74-99); Non-African American GFR(CKD) >90 (>60 ml/min/1.73 sqM); Potassium 4.4 mmol/L (3.5-5.1); Sodium 135 mmol/L (137-145)
--- NOTE | 2024-04-21 07:50 | P.PN ---
Subjective Progress Note Date: 04/21/24 Principal diagnosis: Hospital course: Patient is a 38 year old male with past medical history of insulin dependent diabetes mellitus type 1, diabetic retinopathy, diabetic kidney disease, DKA, hypertension presented to the ED with right foot wound. Patient reports having a wound on lateral side right foot below the little toe. He first noticed the wound a week ago. The pain has been worsening over the past couple of days and he noticed a blister that popped and had a thick discharge. He endorses 9/10 severity of pain currently in the right foot. He mentions being hospitalised for similar diabetic ulcers in the past 3 years. He reports undergoing amputation of the right fifth toe over a year ago as the ulcer had led to osteomyelitis and was treated with lots of antibiotics. He is currently on Doxycycline at home. He sees a wound care nurse. He mentions of an extensive family history of Diabetes mellitus. Additionally, he reports having asthma as a childhe states he has been feeling depressed lately and has suicidal ideation. He does have a prior suicide attempt but does not have a plan currently. Denies fever, chills, shortness of breath, cough, chest pain, palpitations, abdominal pain, nausea, vomiting, hematuria, dysuria, hematochezia, melena, headache, slurred speech, numbness, tingling, dizziness, lightheadedness. ED documentation reviewed. In the ED patient was treated with cefepime, vancomycin, morphine, Zofran, Tums, Maalox. Vitals on admission T 97.5 F, [place] 99 bpm, RR 16, BP 105/74, O2 sat 100% on room air Foot x-ray shows wound/ulcer along the lateral foot, there is subtle focal osteolysis of the underlying fifth metatarsal head on the oblique and lateral views, findings highly suspicious for contiguous osteomyelitis Labs on admission show WBC 9.3, hemoglobin 14.4, sodium 134, potassium 4.6, creatinine 0.76, glucose 333, lactic acid 1.0, CRP 1.2 04/20/24: Patient seen and examined today at bedside. He endorses shortness of breath but is currently saturating at 99% on room air. He continues to be on Vancomycin and Cefepime. Labs today show hemoglobin 12.8. 04/21/24: Patient evalauted at bedside. Vital signs are stable. Denies shortness of breath. Labs today show Hb 13.2, Na 135. Chest x-ray shows no acute cardiopulmonary process. Lower extremity ultrasound done today. CRP 0.5, ESR 20, A1c 10 point Review of systems: Pertinent positives and negatives as discussed in HPI, a complete review of systems was performed and all other systems are negative. Vitals: Signs Reviewed Physical examination: Vital signs reviewed General: nontoxic, no distress, appears at stated age, normal BMI Derm: warm, dry, intact Head: atraumatic, normocephalic, symmetric Eyes: EOMI, anicteric sclera Mouth: no lip lesion, mucus membranes moist Cardiovascular: S1 S2 reg, no murmur Lungs: CTA bilateral, no rhonchi, no rales, no accessory muscle use Abdominal: soft, non-tender to palpation Extremities: Right foot wound bandaged, decreased sensation on b/l foot up to ankle, no cyanosis, clubbing, or pedal edema. Neuro: Alert, Oriented, Gross neurological examination did not reveal any focal deficits. Psych: well appearing, appropriate affect Assessment/Plan: Patient is a 38 year old male with past medical history of diabetes mellitus, diabetic retinopathy, diabetic nephropathy, DKA, hypertension presented to the ED with right foot wound. He has been admitted for osteomyelitis of the right fifth metatarsal and suicidal ideation. Active: #. Osteomyelitis of the right fifth metatarsal secondary to diabetic foot ulcer #. History of amputation and osteomyelitis #. Insulin dependent Diabetes mellitus, type 1 Foot x-ray shows wound/ulcer along the lateral foot, there is subtle focal osteolysis of the underlying fifth metatarsal head on the oblique and lateral views, findings highly suspicious for contiguous osteomyelitis Received Cefepime and Vancomycin in the ED Continue Vancomycin 1250 mg IVPB Q8HR and Cefepime 2gm IVPB Q8HR Continue Insulin pump Continue acetaminophen 60 mg p.o. every 6 hours as needed, ibuprofen 400 mg p.o. every 6 hours as needed, tramadol 50 mg p.o. every 6 hours as needed and Dilaudid 0.5 mg IVP Q6HR PRN for pain management Aerobic wound culture shows presumptive Staph aureus Consult Vascular surgery ID is following #. Mild hyponatremia Low Na 135 Monitor BMP #. Dyspepsia/indigestion Continue Tums 1000 mg p.o. every 4 hours as needed, Maalox 15 mL p.o. every 6 hours as needed #. Nausea and vomiting Continue Prochlorperazine 5 mg p.o. every 8 hours as needed #. Suicidal ideation #. Major depressive disorder Suicide precautions Continue Mirtazapine 15 mg PO HS Psych consulted, recommend to increase Duloxetine to 90 mg PO daily and discontinue 1:1 sitter Outpatient mental health care at [facility] Chronic: #. Hypertension #. Neuropathy #. Migraine #. Allergic rhinitis #. Diabetic gastroparesis #. History of Asthma Continue home meds albuterol 1 puff every 4 hours as needed, baclofen 10 mg p.o. twice daily, fluticasone nasal spray, hydroxyzine 50 mg p.o. at bedtime, loratadine 10 mg p.o. daily, losartan 12.5 mg p.o. daily, metoclopramide 5 mg p.o. daily as needed, montelukast 10 mg p.o. daily prednisolone eyedrops, pregabalin 100 mg p.o. 3 times daily, sumatriptan 50 mg p.o. daily as needed, Ketorolac eye drops left eye QID F: None E: Replete as required N: Regular diet DVT prophylaxis: Lovenox 40 mg SQ daily, SCD GI prophylaxis: Famotidine 20 mg PO BID Attestation I have seen and examined this patient with my resident , discussed the same with the resident/IESHA, and agree with the dictator's assessment and plan as written Dr. Eamon rizzo Objective - Vital Signs Vital signs: Vital Signs Temp 97.4 F L 04/21/24 02:00 Pulse 90 04/21/24 02:00 Resp 16 04/21/24 02:00 BP 102/68 04/21/24 02:00 Pulse Ox 99 04/21/24 02:00 FiO2 Intake & Output 04/20/24 04/21/24 04/21/24 18:59 06:59 18:59 Intake Total 100 Balance 100 Intake: Oral 100 Other: # Voids 2 - Labs CBC & Chem 7: 04/21/24 06:34 04/22/24 03:13 Labs: Abnormal Lab Results - Last 24 Hours (Table) 04/20/24 04/20/24 Range/Units 10:38 11:36 Carbon Dioxide 32 H (22-30) mmol/L BUN 7 L (9-20) mg/dL POC Glucose (mg/dL) 120 H (70-110) mg/dL Microbiology - Last 24 Hours (Table) 04/19/24 12:50 Gram Stain - Preliminary Foot - Right Wound Culture - Preliminary
[2024-04-21 08:12] LABS: C Reactive Protein 0.5 mg/dL (<1.0)
--- NOTE | 2024-04-21 09:20 | XR ---
EXAMINATION TYPE: XR chest 1V portable DATE OF EXAM: 04/21/2024 5:19 AM COMPARISON: 07/30/2021 CLINICAL INDICATION: Male, 38 years old with history of sob, , FINDINGS: The cardiomediastinal silhouette, aorta, and pulmonary vasculature are within normal limits. Lungs and pleural spaces are clear. Nipple rings. IMPRESSION: No acute cardiopulmonary process. [facility], , 04/21/2024 9:18 AM
[2024-04-21 11:10] LABS: Erythrocyte Sedimentation Rate 20 mm/Hr (0-15)
--- NOTE | 2024-04-21 11:42 | US ---
EXAMINATION TYPE: US arterial LE single level DATE OF EXAM: 04/21/2024 7:43 AM Exam done portable COMPARISONS: None. CLINICAL INDICATION: Male, 38 years old with history of open wound foot; Non healing would right lateral foot x 6 months TECHNIQUE: Systolic pressures were taken of the upper and lower extremity arteries with ankle-brachial indices and toe brachial indices calculated bilaterally. History of: Smoker: Previous Hypertension: Yes Diabetic: Yes Hyperlipidemia: No TIA/CVA: No Previous Vascular Surgery: No TX: No Vascular Ulcers: Yes Claudication: Yes Gangrene: No FINDINGS: Doppler Waveforms: Right: Multiphasic Left: Multiphasic Brachial Artery systolic pressure: Right: deferred due to IV Left: 100 Posterior Tibial artery systolic pressure: Right: 136 Left: 133 Dorsalis Pedis artery systolic pressure: Right: 132 Left: 118 Ankle-Brachial Indices: Right: 1.36 Left: 1.33 IMPRESSION: AMY: Right: Normal 0.9 - 1.4, Recommendation: None Left: Normal 0.9 - 1.4, Recommendation: None [facility], , 04/21/2024 11:40 AM MIRLANDE
[2024-04-21 12:03] LABS: Glucose,Whole Blood 361 mg/dL (70-110)
--- NOTE | 2024-04-21 15:08 | P.PN ---
Subjective Progress Note Date: 04/21/24 Principal diagnosis: Reason for follow-up is right diabetic foot ulcer/osteomyelitis Patient is a 38-year-old male with a past medical history significant for diabetes mellitus hypertension history of diabetic foot infection this patient has been dealing with a wound on the lateral aspect of the right foot previously treated at [facility], now presenting with worsening swelling redness and did have abnormal x-ray suggestive of osteomyelitis. On today's evaluation that is 04/21/2024,the patient remains to be afebrile, patient is on room air not requiring supplemental oxygen and denies any shortness of breath no chest pain or cough.Patient denies having any nausea or v omiting, no abdominal pain and no diarrhea has been reported pain to the right foot decreased intensity feeling slightly better. Patient white count is 5.4, creatinine 0.68 sed rate is only 20 local culture growing presumptive Staph aureus and gram-negative bacilli Objective - Vital Signs Vital signs: Vital Signs Temp 97.7 F 04/21/24 08:00 Pulse 95 04/21/24 10:13 Resp 16 04/21/24 10:13 BP 114/74 04/21/24 08:00 Pulse Ox 99 04/21/24 08:00 FiO2 Intake & Output 04/20/24 04/21/24 04/21/24 18:59 06:59 18:59 Intake Total 100 Balance 100 Intake: Oral 100 Other: # Voids 2 - Exam GENERAL DESCRIPTION: Middle-age male lying in bed in no distress RESPIRATORY SYSTEM: Unlabored breathing , decreased breath sounds at bases HEART: S1 S2 regular rate and rhythm , ABDOMEN: Soft , no tenderness EXTREMITIES: Right foot is currently dressed - Labs CBC & Chem 7: 04/21/24 06:34 04/21/24 06:34 Labs: Abnormal Lab Results - Last 24 Hours (Table) 04/20/24 04/21/24 04/21/24 Range/Units 10:38 06:34 06:34 ESR 20 H (0-15) mm/Hr Sodium (137-145) mmol/L Carbon Dioxide 32 H (22-30) mmol/L BUN 7 L (9-20) mg/dL Glucose (74-99) mg/dL Hemoglobin A1c 10.2 H (<=6.0) % 04/21/24 Range/Units 06:34 ESR (0-15) mm/Hr Sodium 135 L (137-145) mmol/L Carbon Dioxide (22-30) mmol/L BUN 6 L (9-20) mg/dL Glucose 259 H (74-99) mg/dL Hemoglobin A1c (<=6.0) % Microbiology - Last 24 Hours (Table) 04/19/24 12:50 Gram Stain - Preliminary Foot - Right Wound Culture - Preliminary Presumptive Staph aureus Gram Neg Bacilli Assessment and Plan (1) Diabetic ulcer of right foot Current Visit: Yes Status: Acute Code(s): E11.621 - TYPE 2 DIABETES MELLITUS WITH FOOT ULCER; L97.519 - NON-PRS CHRONIC ULCER OTH PRT RIGHT FOOT W UNSP SEVERITY SNOMED Code(s): 833332054 (2) Foot osteomyelitis, right Current Visit: Yes Status: Acute Code(s): M86.9 - OSTEOMYELITIS, UNSPECIFIED SNOMED Code(s): 8575461762972715 (3) Allergy to multiple antibiotics Current Visit: Yes Status: Acute Code(s): Z88.1 - ALLERGY STATUS TO OTHER ANTIBIOTIC AGENTS SNOMED Code(s): 770544131 (4) Diabetic foot infection Current Visit: No Status: Acute Code(s): E11.628 - TYPE 2 DIABETES MELLITUS WITH OTHER SKIN COMPLICATIONS; L08.9 - LOCAL INFECTION OF THE SKIN AND SUBCUTANEOUS TISSUE, UNSP SNOMED Code(s): 469903683 Plan: 1patient presented to hospital with worsening wound to the right foot lateral border with worsening pain swelling redness patient did have abnormal x-ray concerning for osteomyelitis in this patient has been on a prolonged course of oral doxycycline with failure of the outpatient antibiotics and a question of MRSA versus gram-negative infection. 2local culture has been obtained which are currently growing Staph aureus and g amber-negative with ID sensitivities pending 3vascular surgery evaluation for debridement of the wound and deep culture from the bone currently pending 4patient with multiple antibiotic ALLERGIES that would limit the number of antibiotic safe to use 5patient will be treated with vancomycin pharmacy to dose target trough of 15 and cefepime while waiting for the culture to finalize to determine discharge antibiotics Dictation was produced using [employer] dictation software. please excuse any grammatical, word or spelling errors. Time with Patient: Less than 30
--- NOTE | 2024-04-21 16:32 | P.GSCN ---
History of Present Illness History of present illness: 38-year-old gentleman type 1 diabetes. Patient has a wound on the lateral aspect of the right foot according the patient this wound got busted and he developed some pus underneath. Patient also has a history of osteo patient has been treated with IV antibiotic in the past by infectious disease x-ray of the foot shows head of the metatarsal focal osteo Surgical history patient had a left foot second toe amputation done in the past which is completely healed Medical history history of type 1 diabetes hypertension On examination chest is clear and auscultation. Second sound present Abdomen soft nontender Vascular femorals are 2+ PT DP palpable and has a open wound right foot lateral aspect wound is infected Plan is wound debridement and deep culture Past Medical History Past Medical History: Diabetes Mellitus, Hypertension, Renal Disease Additional Past Medical History / Comment(s): Pt had recent upper respiratory infection and was on antibiotics/steroids for this, IDDM type I, past DKA about 1.5 yrs ago, neuropathy bilateral legs and runs up L side of body/L arm, hand and L side of face, L eye diabetic retinopathy, diabetic nephropathy-elevated urine protein, benign nasal polyp History of Any Multi-Drug Resistant Organisms: MRSA Year Discovered:: 12/14/2023 MDRO Source:: right food wound Past Surgical History: Tonsillectomy Additional Past Surgical History / Comment(s): Closed reduction nasal bone fracture with fixation septoplasty/open reduction L malary zygomatic arch fracture. lymph node removal, September 2022 - left thigh Past Anesthesia/Blood Transfusion Reactions: No Reported Reaction Past Psychological History: Anxiety, Bipolar, Depression Smoking Status: Former smoker Past Alcohol Use History: None Reported Past Drug Use History: Marijuana - Past Family History Father Family Medical History: No Reported History Additional Family Medical History / Comment(s): Father is healthy Mother Family Medical History: Diabetes Mellitus Additional Family Medical History / Comment(s): Gastric ulcer, one leg shorter, neuropathy involving arms. Medications and Allergies Home Medications Medication Instructions Recorded Confirmed Type Loratadine [Claritin] 10 mg PO DAILY 03/17/18 04/18/24 History Albuterol Sulfate [Ventolin HFA] 1 puff INHALATION RT-Q4H PRN 07/25/21 04/18/24 History Montelukast [Singulair] 10 mg PO DAILY 07/25/21 04/18/24 History Ondansetron Odt [Zofran ODT] 4 mg PO DAILY PRN 07/25/21 04/18/24 History Ibuprofen [Motrin] 800 mg PO TID PRN 06/19/22 04/18/24 History Insulin Aspart (For Pump) [NovoLOG 0.01 unit SQ-PUMP CONTINUOUS 06/19/22 04/18/24 History (For Pump)] Famotidine [Pepcid] 40 mg PO BID 10/03/22 04/18/24 History Metoclopramide [Reglan] 5 mg PO DAILY PRN 11/23/22 04/18/24 History Pantoprazole [Protonix] 40 mg PO BID 11/23/22 04/18/24 History Baclofen [Lioresal] 10 mg PO BID 04/18/24 04/18/24 History DULoxetine HCL [Cymbalta] 20 mg PO DAILY 04/18/24 04/18/24 History DULoxetine HCL [Cymbalta] 30 mg PO DAILY 04/18/24 04/18/24 History Doxycycline Hyclate 100 mg PO BID 04/18/24 04/18/24 History Fluticasone Nasal [place] [Flonase 1 spr EA NOSTRIL DAILY 04/18/24 04/18/24 History Nasal [place]] Gabapentin [Neurontin] 400 mg PO TID 04/18/24 04/18/24 History Ketorolac 0.5% Ophth Soln [Acular 1 drop LEFT EYE QID 04/18/24 04/18/24 History 0.5%] Levalbuterol Tartrate 2 puff INHALATION RT-Q4H PRN 04/18/24 04/18/24 History [Levalbuterol Tartrate 45 MCG Hfa] Losartan [Cozaar] 12.5 mg PO DAILY 04/18/24 04/18/24 History Mirtazapine [Remeron] 15 mg PO HS 04/18/24 04/18/24 History Pregabalin [Lyrica] 100 mg PO TID 04/18/24 04/18/24 History SUMAtriptan succinate [Imitrex] 50 mg PO DAILY PRN 04/18/24 04/18/24 History hydrOXYzine HCL [Atarax] 25 mg PO BID PRN 04/18/24 04/18/24 History hydrOXYzine HCL [Atarax] 50 mg PO HS 04/18/24 04/18/24 History prednisoLONE ACETATE 1% OPHTH 1 drop LEFT EYE QID 04/18/24 04/18/24 History [Pred Forte 1%] Allergies Allergy/AdvReac Type Severity Reaction Status Date / Time Penicillins Allergy Unknown Verified 04/18/24 18:11 Childhood sulfamethoxazole Allergy Rash/Hives Verified 04/18/24 18:11 [From Bactrim] trimethoprim [From Bactrim] Allergy Rash/Hives Verified 04/18/24 18:11 Surgical - Exam Vital Signs Temp Pulse Resp BP Pulse Ox 97.5 F L 99 16 105/74 100 04/18/24 12:34 04/18/24 12:34 04/18/24 12:34 04/18/24 12:34 04/18/24 12:34 Results - Labs 04/21/24 06:34 04/21/24 06:34 Abnormal Lab Results - Last 24 Hours (Table) 04/21/24 04/21/24 04/21/24 Range/Units 06:34 06:34 06:34 ESR 20 H (0-15) mm/Hr Sodium 135 L (137-145) mmol/L BUN 6 L (9-20) mg/dL Glucose 259 H (74-99) mg/dL POC Glucose (mg/dL) (70-110) mg/dL Hemoglobin A1c 10.2 H (<=6.0) % 04/21/24 Range/Units 12:01 ESR (0-15) mm/Hr Sodium (137-145) mmol/L BUN (9-20) mg/dL Glucose (74-99) mg/dL POC Glucose (mg/dL) 361 H (70-110) mg/dL Hemoglobin A1c (<=6.0) % Microbiology - Last 24 Hours (Table) 04/19/24 12:50 Anaerobic Culture - Preliminary Foot - Right 04/19/24 12:50 Gram Stain - Preliminary Foot - Right Wound Culture - Preliminary Presumptive Staph aureus Gram Neg Bacilli Diabetes panel 04/21/24 04/21/24 Range/Units 06:34 06:34 Sodium 135 L (137-145) mmol/L Potassium 4.4 (3.5-5.1) mmol/L Chloride 101 (98-107) mmol/L Carbon Dioxide 28 (22-30) mmol/L BUN 6 L (9-20) mg/dL Creatinine 0.68 (0.66-1.25) mg/dL Glucose 259 H (74-99) mg/dL Hemoglobin A1c 10.2 H (<=6.0) % Calcium 8.8 (8.4-10.2) mg/dL Calcium panel 04/21/24 Range/Units 06:34 Calcium 8.8 (8.4-10.2) mg/dL Pituitary panel 04/21/24 Range/Units 06:34 Sodium 135 L (137-145) mmol/L Potassium 4.4 (3.5-5.1) mmol/L Chloride 101 (98-107) mmol/L Carbon Dioxide 28 (22-30) mmol/L BUN 6 L (9-20) mg/dL Creatinine 0.68 (0.66-1.25) mg/dL Glucose 259 H (74-99) mg/dL Calcium 8.8 (8.4-10.2) mg/dL Adrenal panel 04/21/24 Range/Units 06:34 Sodium 135 L (137-145) mmol/L Potassium 4.4 (3.5-5.1) mmol/L Chloride 101 (98-107) mmol/L Carbon Dioxide 28 (22-30) mmol/L BUN 6 L (9-20) mg/dL Creatinine 0.68 (0.66-1.25) mg/dL Glucose 259 H (74-99) mg/dL Calcium 8.8 (8.4-10.2) mg/dL
--- NOTE | 2024-04-21 16:35 | P.PCN ---
Description of Procedure: Preop diagnosis is infected wound right foot lateral aspect of the foot measurement is 2 x 2-1/2 by is 0.5 Postop postdebridement wound measurement is 2 x 2 x 0.5 down to the metatarsal bone Procedure right foot was prepped percent lidocaine were infiltrated did the excision debridement of the wound all the necrotic tissue was excised almost down to the metatarsal bone necrotic tissue was sent for deep culture wound was irrigated with saline hemostasis well-controlled and Santyl cream was applied to the wound dressing applied patient tarted the procedure well plan is we will change the dressing daily with Santyl cream to walk on heel
[2024-04-21 17:01] LABS: Glucose,Whole Blood 287 mg/dL (70-110)
[2024-04-21] MEDS: COLLAGENASE 250 UNIT/GM OINTMENT 30 GM TUBE TOPICAL SCH (17:17)
[2024-04-22 03:31] LABS: Glucose,Whole Blood 126 mg/dL (70-110)
[2024-04-22 03:35] LABS: African American GFR (CKD) >90 (>60 ml/min/1.73 sqM); Anion Gap 6 mmol/L; Blood Urea Nitrogen 13 mg/dL (9-20); Calcium 9.1 mg/dL (8.4-10.2); Carbon Dioxide 30 mmol/L (22-30); Chloride 102 mmol/L (98-107); Glucose 117 mg/dL (74-99); Non-African American GFR(CKD) >90 (>60 ml/min/1.73 sqM); Potassium 3.9 mmol/L (3.5-5.1); Sodium 138 mmol/L (137-145)
--- NOTE | 2024-04-22 09:22 | P.PN ---
Subjective Progress Note Date: 04/22/24 Principal diagnosis: Hospital course: Patient is a 38 year old male with past medical history of insulin dependent diabetes mellitus type 1, diabetic retinopathy, diabetic kidney disease, DKA, hypertension presented to the ED with right foot wound. Patient reports having a wound on lateral side right foot below the little toe. He first noticed the wound a week ago. The pain has been worsening over the past couple of days and he noticed a blister that popped and had a thick discharge. He endorses 9/10 severity of pain currently in the right foot. He mentions being hospitalised for similar diabetic ulcers in the past 3 years. He reports undergoing amputation of the right fifth toe over a year ago as the ulcer had led to osteomyelitis and was treated with lots of antibiotics. He is currently on Doxycycline at home. He sees a wound care nurse. He mentions of an extensive family history of Diabetes mellitus. Additionally, he reports having asthma as a childhe states he has been feeling depressed lately and has suicidal ideation. He does have a prior suicide attempt but does not have a plan currently. Denies fever, chills, shortness of breath, cough, chest pain, palpitations, abdominal pain, nausea, vomiting, hematuria, dysuria, hematochezia, melena, headache, slurred speech, numbness, tingling, dizziness, lightheadedness. ED documentation reviewed. In the ED patient was treated with cefepime, vancomycin, morphine, Zofran, Tums, Maalox. Vitals on admission T 97.5 F, OK 99 bpm, RR 16, BP 105/74, O2 sat 100% on room air Foot x-ray shows wound/ulcer along the lateral foot, there is subtle focal osteolysis of the underlying fifth metatarsal head on the oblique and lateral views, findings highly suspicious for contiguous osteomyelitis Labs on admission show WBC 9.3, hemoglobin 14.4, sodium 134, potassium 4.6, creatinine 0.76, glucose 333, lactic acid 1.0, CRP 1.2 04/20/24: Patient seen and examined today at bedside. He endorses shortness of breath but is currently saturating at 99% on room air. He continues to be on Vancomycin and Cefepime. Labs today show hemoglobin 12.8. 04/21/24: Patient evalauted at bedside. Vital signs are stable. Denies shortness of breath. Labs today show Hb 13.2, Na 135. Chest x-ray shows no acute cardiopulmonary process. Lower extremity ultrasound done today. CRP 0.5, ESR 20, A1c 10 point 04/22/24: Patient examined today. Vital signs are stable. Labs today show sodium 138, potassium 3.9, creatinine 0.69. Wound culture shows few of MRSA, Enterobacter cloacae, Klebsiella pneumonia and no anaerobes isolated to date. Patient underwent debridement of the wound and deep culture from the bone followed by santyl dressing yesterday. Review of systems: Pertinent positives and negatives as discussed in HPI, a complete review of systems was performed and all other systems are negative. Vitals: Signs Reviewed Physical examination: Vital signs reviewed General: nontoxic, no distress, appears at stated age, normal BMI Derm: warm, dry, intact Head: atraumatic, normocephalic, symmetric Eyes: EOMI, anicteric sclera Mouth: no lip lesion, mucus membranes moist Cardiovascular: S1 S2 reg, no murmur Lungs: CTA bilateral, no rhonchi, no rales, no accessory muscle use Abdominal: soft, non-tender to palpation Extremities: Right foot wound bandaged, decreased sensation on b/l foot up to ankle, no cyanosis, clubbing, or pedal edema. Neuro: Alert, Oriented, Gross neurological examination did not reveal any focal deficits. Psych: well appearing, appropriate affect Assessment/Plan: Patient is a 38 year old male with past medical history of diabetes mellitus, diabetic retinopathy, diabetic nephropathy, DKA, hypertension presented to the ED with right foot wound. He has been admitted for osteomyelitis of the right fifth metatarsal and suicidal ideation. Active: #. Osteomyelitis of the right fifth metatarsal secondary to diabetic foot ulcer #. S/p Wound debridement and deep culture of bone on 04/21/24 #. Insulin dependent Diabetes mellitus, type 1 Foot x-ray shows wound/ulcer along the lateral foot, there is subtle focal osteolysis of the underlying fifth metatarsal head on the oblique and lateral views, findings highly suspicious for contiguous osteomyelitis Received Cefepime and Vancomycin in the ED Continue Vancomycin 1250 mg IVPB Q8HR and Cefepime 2gm IVPB Q8HR Continue Insulin pump Continue acetaminophen 60 mg p.o. every 6 hours as needed, ibuprofen 400 mg p.o. every 6 hours as needed, tramadol 50 mg p.o. every 6 hours as needed and Dilaudid 0.5 mg IVP Q6HR PRN for pain management Wound culture shows few of MRSA, Enterobacter cloacae, Klebsiella pneumonia and no anaerobes isolated to date Obtain NM bone 3 phase Vascular surgery is following ID is following #. Dyspepsia/indigestion Continue Tums 1000 mg p.o. every 4 hours as needed, Maalox 15 mL p.o. every 6 hours as needed #. Nausea and vomiting Continue Prochlorperazine 5 mg p.o. every 8 hours as needed #. Mild hyponatremia, resolved #. Suicidal ideation #. Major depressive disorder Suicide precautions Continue Mirtazapine 15 mg PO HS Psych consulted, recommend to increase Duloxetine to 90 mg PO daily and discontinue 1:1 sitter Outpatient mental health care at [facility] Chronic: #. Hypertension #. Neuropathy #. Migraine #. Allergic rhinitis #. Diabetic gastroparesis #. History of Asthma Continue home meds albuterol 1 puff every 4 hours as needed, baclofen 10 mg p.o. twice daily, fluticasone nasal spray, hydroxyzine 50 mg p.o. at bedtime, loratadine 10 mg p.o. daily, losartan 12.5 mg p.o. daily, metoclopramide 5 mg p.o. daily as needed, montelukast 10 mg p.o. daily prednisolone eyedrops, pregabalin 100 mg p.o. 3 times daily, sumatriptan 50 mg p.o. daily as needed, Ketorolac eye drops left eye QID F: None E: Replete as required N: Regular diet DVT prophylaxis: Lovenox 40 mg SQ daily, SCD GI prophylaxis: Famotidine 20 mg PO BID Attestation I have seen and examined this patient with my resident , discussed the same with the resident/IESHA, and agree with the dictator's assessment and plan as written Dr. Eamon rizzo Objective - Vital Signs Vital signs: Vital Signs Temp 98.2 F 04/22/24 02:00 Pulse 88 04/22/24 02:00 Resp 20 04/22/24 02:00 BP 100/61 04/22/24 02:00 Pulse Ox 95 04/22/24 02:00 FiO2 Intake & Output 04/21/24 04/22/24 04/22/24 18:59 06:59 18:59 Intake Total 100 1350 Balance 100 1350 Intake: Intake, IV Titration 600 Amount Cefepime 2 gm In Sodium 100 Chloride 0.9% 100 ml @ 25 mls/hr IVPB Q8HR B[facility] Rx# :[id number] Vancomycin 1,250 mg In 500 Sodium Chloride 0.9% 250 ml @ 125 mls/hr IVPB Q8H BRI Rx#:[id number] Oral 100 750 Other: # Voids 3 - Labs CBC & Chem 7: 04/21/24 06:34 04/22/24 03:13 Labs: Abnormal Lab Results - Last 24 Hours (Table) 04/21/24 04/21/24 04/21/24 Range/Units 06:34 06:34 06:34 ESR 20 H (0-15) mm/Hr Sodium 135 L (137-145) mmol/L BUN 6 L (9-20) mg/dL Glucose 259 H (74-99) mg/dL POC Glucose (mg/dL) (70-110) mg/dL Hemoglobin A1c 10.2 H (<=6.0) % 04/21/24 04/21/24 04/22/24 Range/Units 12:01 17:01 03:13 ESR (0-15) mm/Hr Sodium (137-145) mmol/L BUN (9-20) mg/dL Glucose 117 H (74-99) mg/dL POC Glucose (mg/dL) 361 H 287 H (70-110) mg/dL Hemoglobin A1c (<=6.0) % 04/22/24 Range/Units 03:31 ESR (0-15) mm/Hr Sodium (137-145) mmol/L BUN (9-20) mg/dL Glucose (74-99) mg/dL POC Glucose (mg/dL) 126 H (70-110) mg/dL Hemoglobin A1c (<=6.0) % Microbiology - Last 24 Hours (Table) 04/19/24 12:50 Gram Stain - Final Foot - Right Wound Culture - Final Methicillin resist S. aureus Enterobacter cloacae Klebsiella pneumoniae 04/19/24 12:50 Anaerobic Culture - Preliminary Foot - Right
[2024-04-22 11:41] LABS: Glucose,Whole Blood 305 mg/dL (70-110)
[2024-04-22 12:11] VITALS: BMI 19.7
--- NOTE | 2024-04-22 13:33 | NM ---
EXAMINATION TYPE: NM bone 3 phase DATE OF EXAM: 04/22/2024 COMPARISON: Right foot radiographs 04/18/2024 CLINICAL INDICATION: Male, 38 years old with history of Right diabetic foot ulcer cellulitis R/O oste omyelitis; TECHNIQUE: Triple phase bone scintigraphy was performed following the injection of 21.9 mCi Tc 99m MD P. Immediate images and 5.5 hours post injection images acquired. Imaging performed of the bilateral distal lower extremities. FINDINGS: Flow images show asymmetric hyperemia right forefoot and midfoot. Pool images show corresponding increased activity along the mid to lateral forefoot/mid foot. Delayed scan with increased activity in the same region. IMPRESSION: Three-phase bone scan abnormality in the region of the fifth metatarsal head correspondin g to the suspicious site on radiograph. Findings highly suggestive of osteomyelitis. [facility], , 04/22/2024 1:30 PM
[2024-04-22 14:36] LABS: Prothrombin Time 11.3 sec (10.0-12.5)
--- NOTE | 2024-04-22 15:31 | P.PN ---
Subjective Progress Note Date: 04/22/24 Principal diagnosis: Reason for follow-up is right diabetic foot ulcer/osteomyelitis Patient is a 38-year-old male with a past medical history significant for diabetes mellitus hypertension history of diabetic foot infection this patient has been dealing with a wound on the lateral aspect of the right foot previously treated at [facility], now presenting with worsening swelling redness and did have abnormal x-ray suggestive of osteomyelitis. On today's evaluation that is 04/22/2024, the patient continues to be afebrile, the patient is on room air and breathing comfortably, the Pt denies having any chest pain or cough, the patient denies having any abdominal pain no vomiting or any diarrhea and denies any worsening pain to the right foot. Local culture finalized with MRSA Enterobacter Klebsiella Objective - Vital Signs Vital signs: Vital Signs Temp 97.5 F L 04/22/24 10:55 Pulse 87 04/22/24 10:55 Resp 18 04/22/24 10:55 BP 129/64 04/22/24 10:55 Pulse Ox 98 04/22/24 10:55 FiO2 Intake & Output 04/21/24 04/22/24 04/22/24 18:59 06:59 18:59 Intake Total 100 1350 Balance 100 1350 Weight 71.668 kg Intake: Intake, IV Titration 600 Amount Cefepime 2 gm In Sodium 100 Chloride 0.9% 100 ml @ 25 mls/hr IVPB Q8HR BRI Rx# :[id number] Vancomycin 1,250 mg In 500 Sodium Chloride 0.9% 250 ml @ 125 mls/hr IVPB Q8H BRI Rx#:[id number] Oral 100 750 Other: # Voids 3 - Exam GENERAL DESCRIPTION: Middle-age male lying in bed in no distress RESPIRATORY SYSTEM: Unlabored breathing , decreased breath sounds at bases HEART: S1 S2 regular rate and rhythm , ABDOMEN: Soft , no tenderness EXTREMITIES: Right foot is currently dressed - Labs CBC & Chem 7: 04/21/24 06:34 04/22/24 03:13 Labs: Abnormal Lab Results - Last 24 Hours (Table) 04/21/24 04/22/24 04/22/24 Range/Units 17:01 03:13 03:31 Glucose 117 H (74-99) mg/dL POC Glucose (mg/dL) 287 H 126 H (70-110) mg/dL 04/22/24 Range/Units 11:39 Glucose (74-99) mg/dL POC Glucose (mg/dL) 305 H (70-110) mg/dL Microbiology - Last 24 Hours (Table) 04/19/24 12:50 Gram Stain - Final Foot - Right Wound Culture - Final Methicillin resist S. aureus Enterobacter cloacae Klebsiella pneumoniae 04/19/24 12:50 Anaerobic Culture - Preliminary Foot - Right Assessment and Plan (1) Diabetic ulcer of right foot Current Visit: Yes Status: Acute Code(s): E11.621 - TYPE 2 DIABETES MELLITUS WITH FOOT ULCER; L97.519 - NON-PRS CHRONIC ULCER OTH PRT RIGHT FOOT W UNSP SEVERITY SNOMED Code(s): 312193133 (2) Foot osteomyelitis, right Current Visit: Yes Status: Acute Code(s): M86.9 - OSTEOMYELITIS, UNSPECIFIED SNOMED Code(s): 5275877210024097 (3) Allergy to multiple antibiotics Current Visit: Yes Status: Acute Code(s): Z88.1 - ALLERGY STATUS TO OTHER ANTIBIOTIC AGENTS SNOMED Code(s): 933865224 (4) Diabetic foot infection Current Visit: No Status: Acute Code(s): E11.628 - TYPE 2 DIABETES MELLITUS WITH OTHER SKIN COMPLICATIONS; L08.9 - LOCAL INFECTION OF THE SKIN AND SUBCUTANEOUS TISSUE, UNSP SNOMED Code(s): 646816143 Plan: 1patient presented to hospital with worsening wound to the right foot lateral border with worsening pain swelling redness patient did have abnormal x-ray concerning for osteomyelitis in this patient has been on a prolonged course of oral doxycycline with failure of the outpatient antibiotics and a question of MRSA versus gram-negative infection. 2local culture has been obtained which are currently growing Staph aureus and gram-negative with ID sensitivities pending 3vascular surgery has evaluated the patient and is status post debridement of the wound down to the bone suggestive of osteomyelitis, bone scan pending 4patient with multiple antibiotic ALLERGIES that would limit the number of antibiotic safe to use 5patient will be treated with vancomycin pharmacy to dose target trough of 15 and cefepime, we will order PICC line for outpatient IV antibiotics Dictation was produced using [employer] dictation software. please excuse any grammatical, word or spelling errors. Time with Patient: Less than 30
[2024-04-22 17:25] LABS: Glucose,Whole Blood 392 mg/dL (70-110)
--- NOTE | 2024-04-22 19:48 | PN ---
PROGRESS NOTE A 38-year-old gentleman, history of diabetes, the patient has a wound on the lateral aspect of the right foot. We did the debridement and deep culture. Today, we changed the dressing with Santyl cream. The patient is on IV antibiotic. The patient had a bone scan done today. Dressing should be changed on a daily basis using Santyl cream. When discharged from the hospital, the patient will follow up in the wound clinic at [facility]. KI / STEVE: [id number] /
[2024-04-22 20:58] LABS: Glucose,Whole Blood 360 mg/dL (70-110)
[2024-04-23 01:50] LABS: Glucose,Whole Blood 275 mg/dL (70-110)
[2024-04-23 06:08] LABS: Glucose,Whole Blood 284 mg/dL (70-110)
[2024-04-23 09:53] LABS: HCT 37.5 % (39.6-50.0); HGB 12.7 g/dL (13.0-17.0); MCH 31.1 pg (27.0-32.0); MCHC 33.9 g/dL (32.0-37.0); MCV 91.9 FL (80.0-97.0); Mean Platelet Volume 11.8 FL (9.5-12.2); NRBC Per 100 WBC 0 X 10*3/uL (0.00-0.01); Platelet Count 288 X 10*3/uL (140-440); RBC 4.08 X 10*6/uL (4.40-5.60); RDW 11.9 % (11.5-14.5); WBC 5.54 X 10*3/uL (4.50-10.00)
[2024-04-23 10:10] LABS: Blood Urea Nitrogen 12.4 mg/dL (9.0-27.0); Calcium 9.1 mg/dL (8.7-10.3); Carbon Dioxide 29.9 mmol/L (21.6-31.8); Chloride 99 mmol/L (96-109); Glucose 320 mg/dL (70-110); Potassium 4.7 mmol/L (3.5-5.5); Sodium 138 mmol/L (135-145)
--- NOTE | 2024-04-23 11:28 | P.PN ---
Progress Note - Text 38-year-old diabetic male patient had infected wound left aspect of the foot we did the debridement culture is positive for methicillin-resistant Staph aureus under care of infectious disease and IV antibiotic we been treating with Santyl cream after debridement dressing dry and base of the wound is granulating continue with local wound care and IV antibiotic
[2024-04-23 11:42] LABS: Glucose,Whole Blood 320 mg/dL (70-110)
[2024-04-23] MEDS: VANCOMYCIN TROUGH DUE 1 EACH MISC MISCELLANE ONE (11:56)
--- NOTE | 2024-04-23 12:54 | P.PN ---
Subjective Progress Note Date: 04/23/24 Principal diagnosis: Hospital course: Patient is a 38 year old male with past medical history of insulin dependent diabetes mellitus type 1, diabetic retinopathy, diabetic kidney disease, DKA, hypertension presented to the ED with right foot wound. Patient reports having a wound on lateral side right foot below the little toe. He first noticed the wound a week ago. The pain has been worsening over the past couple of days and he noticed a blister that popped and had a thick discharge. He endorses 9/10 severity of pain currently in the right foot. He mentions being hospitalised for similar diabetic ulcers in the past 3 years. He reports undergoing amputation of the right fifth toe over a year ago as the ulcer had led to osteomyelitis and was treated with lots of antibiotics. He is currently on Doxycycline at home. He sees a wound care nurse. He mentions of an extensive family history of Diabetes mellitus. Additionally, he reports having asthma as a childhe states he has been feeling depressed lately and has suicidal ideation. He does have a prior suicide attempt but does not have a plan currently. Denies fever, chills, shortness of breath, cough, chest pain, palpitations, abdominal pain, nausea, vomiting, hematuria, dysuria, hematochezia, melena, headache, slurred speech, numbness, tingling, dizziness, lightheadedness. ED documentation reviewed. In the ED patient was treated with cefepime, vancomycin, morphine, Zofran, Tums, Maalox. Vitals on admission T 97.5 F, [place] 99 bpm, RR 16, BP 105/74, O2 sat 100% on room air Foot x-ray shows wound/ulcer along the lateral foot, there is subtle focal osteolysis of the underlying fifth metatarsal head on the oblique and lateral views, findings highly suspicious for contiguous osteomyelitis Labs on admission show WBC 9.3, hemoglobin 14.4, sodium 134, potassium 4.6, creatinine 0.76, glucose 333, lactic acid 1.0, CRP 1.2 04/20/24: Patient seen and examined today at bedside. He endorses shortness of breath but is currently saturating at 99% on room air. He continues to be on Vancomycin and Cefepime. Labs today show hemoglobin 12.8. 04/21/24: Patient evalauted at bedside. Vital signs are stable. Denies shortness of breath. Labs today show Hb 13.2, Na 135. Chest x-ray shows no acute cardiopulmonary process. Lower extremity ultrasound done today. CRP 0.5, ESR 20, A1c 10 point 04/22/24: Patient examined today. Vital signs are stable. Labs today show sodium 138, potassium 3.9, creatinine 0.69. Wound culture shows few of MRSA, Enterobacter cloacae, Klebsiella pneumonia and no anaerobes isolated to date. Patient underwent debridement of the wound and deep culture from the bone followed by santyl dressing yesterday. 04/23/24: Patient seen and examined today. He complains of nausea but mentions that it is chronic and that Zofran doesn't help with it. He denies shortness of breath. Labs today show hemoglobin 12.7,Sodium 138, glucose 284. tissue culture shows gram-negative bacilli and presumptive Staph aureus. Bone scan nuclear medicine shows three-phase bone scan abnormality in the region of the fifth metatarsal head corresponding to suspicious site on radiograph, highly suggestive of osteomyelitis. Review of systems: Pertinent positives and negatives as discussed in HPI, a complete review of systems was performed and all other systems are negative. Vitals: Signs Reviewed Physical examination: Vital signs reviewed General: nontoxic, no distress, appears at stated age, normal BMI Derm: warm, dry, intact Head: atraumatic, normocephalic, symmetric Eyes: EOMI, anicteric sclera Mouth: no lip lesion, mucus membranes moist Cardiovascular: S1 S2 reg, no murmur Lungs: CTA bilateral, no rhonchi, no rales, no accessory muscle use Abdominal: soft, non-tender to palpation Extremities: Right foot wound bandaged, decreased sensation on b/l foot up to ankle, no cyanosis, clubbing, or pedal edema. Neuro: Alert, Oriented, Gross neurological examination did not reveal any focal deficits. Psych: well appearing, appropriate affect Assessment/Plan: Patient is a 38 year old male with past medical history of diabetes mellitus, diabetic retinopathy, diabetic nephropathy, DKA, hypertension presented to the ED with right foot wound. He has been admitted for osteomyelitis of the right fifth metatarsal and suicidal ideation. Patient to get PICC line for outpatient IV antibiotics. Active: #. Osteomyelitis of the right fifth metatarsal secondary to diabetic foot ulcer #. S/p Wound debridement and deep culture of bone on 04/21/24 #. Insulin dependent Diabetes mellitus, type 1 Foot x-ray shows wound/ulcer along the lateral foot, there is subtle focal os teolysis of the underlying fifth metatarsal head on the oblique and lateral views, findings highly suspicious for contiguous osteomyelitis Received Cefepime and Vancomycin in the ED Wound culture shows few of MRSA, Enterobacter cloacae, Klebsiella pneumonia and no anaerobes isolated to date Bone scan nuclear medicine shows three-phase bone scan abnormality in the region of the fifth metatarsal head corresponding to suspicious site on radiograph, highly suggestive of osteomyelitis. Tissue culture shows gram-negative bacilli and presumptive Staph aureus. Continue Vancomycin 1250 mg IVPB Q8HR and Cefepime 2gm IVPB Q8HR Continue Insulin pump Continue acetaminophen 60 mg p.o. every 6 hours as needed, ibuprofen 400 mg p.o. every 6 hours as needed, tramadol 50 mg p.o. every 6 hours as needed and Dilaudid 0.5 mg IVP Q6HR PRN for pain management PICC line for outpatient IV antibiotics Vascular surgery is following ID is following #. Dyspepsia/indigestion Continue Tums 1000 mg p.o. every 4 hours as needed, Maalox 15 mL p.o. every 6 hours as needed #. Nausea and vomiting Continue Prochlorperazine 5 mg p.o. every 8 hours as needed #. Mild hyponatremia, resolved #. Suicidal ideation #. Major depressive disorder Suicide precautions Continue Mirtazapine 15 mg PO HS Psych consulted, recommend to increase Duloxetine to 90 mg PO daily and discontinue 1:1 sitter Outpatient [facility] health care at [facility] Chronic: #. Hypertension #. Neuropathy #. Migraine #. Allergic rhinitis #. Diabetic gastroparesis #. History of Asthma Continue home meds albuterol 1 puff every 4 hours as needed, baclofen 10 mg p.o. twice daily, fluticasone nasal spray, hydroxyzine 50 mg p.o. at bedtime, loratadine 10 mg p.o. daily, losartan 12.5 mg p.o. daily, metoclopramide 5 mg p .o. daily as needed, montelukast 10 mg p.o. daily prednisolone eyedrops, pregabalin 100 mg p.o. 3 times daily, sumatriptan 50 mg p.o. daily as needed, Ketorolac eye drops left eye QID F: None E: Replete as required N: Regular diet DVT prophylaxis: Lovenox 40 mg SQ daily, SCD GI prophylaxis: Famotidine 20 mg PO BID Attestation I have seen and examined this patient with my resident , discussed the same with the resident/IESHA, and agree with the dictator's assessment and plan as written Dr. Eamon rizzo Objective - Vital Signs Vital signs: Vital Signs Temp 97.5 F L 04/23/24 01:16 Pulse 80 04/23/24 01:16 Resp 15 04/23/24 01:16 BP 103/64 04/23/24 01:16 Pulse Ox 92 L 04/23/24 01:16 FiO2 Intake & Output 04/22/24 04/23/24 04/23/24 18:59 06:59 18:59 Intake Total 600 Balance 600 Weight 71.668 kg Intake: Intake, IV Titration 600 Amount Cefepime 2 gm In Sodium 100 Chloride 0.9% 100 ml @ 25 mls/hr IVPB Q8HR [facility] Rx# :[id number] Vancomycin 1,250 mg In 500 Sodium Chloride 0.9% 250 ml @ 125 mls/hr IVPB Q8H [facility] Rx#:[id number] Other: # Voids 1 2 - Labs CBC & Chem 7: 04/23/24 05:21 04/23/24 05:21 Labs: Abnormal Lab Results - Last 24 Hours (Table) 04/22/24 04/22/24 04/22/24 Range/Units 11:39 17:24 20:56 POC Glucose (mg/dL) 305 H 392 H 360 H (70-110) mg/dL 04/23/24 04/23/24 Range/Units 01:48 06:06 POC Glucose (mg/dL) 275 H 284 H (70-110) mg/dL Microbiology - Last 24 Hours (Table) 04/21/24 16:19 Gram Stain - Preliminary Foot - Right Tissue Culture - Preliminary Gram Neg Bacilli Presumptive Staph aureus 04/19/24 12:50 Gram Stain - Final Foot - Right Wound Culture - Final Methicillin resist S. aureus Enterobacter cloacae Klebsiella pneumoniae
[2024-04-23] MEDS: VANCOMYCIN 1,250 MG in SODIUM CHLORIDE 0.9% 250 ML IVPB SCH (15:34)
[2024-04-23 16:45] LABS: Glucose,Whole Blood 390 mg/dL (70-110)
[2024-04-23 21:03] LABS: Glucose,Whole Blood 412 mg/dL (70-110)
--- NOTE | 2024-04-23 21:54 | P.PN ---
Subjective Progress Note Date: 04/23/24 Principal diagnosis: Reason for follow-up is right diabetic foot ulcer/osteomyelitis Patient is a 38-year-old male with a past medical history significant for diabetes mellitus hypertension history of diabetic foot infection this patient has been dealing with a wound on the lateral aspect of the right foot previously treated at [facility], now presenting with worsening swelling redness and did have abnormal x-ray suggestive of osteomyelitis. On today's evaluation that is 04/23/2024, patient did not have any fever and denies any chills, patient is breathing comfortably on room air, patient with no chest pain or cough patient did not have any abdominal pain nausea vomiting or any loose stools or pain to the right foot were negative. No labs obtained today culture positive with MRSA Enterobacter reportedly sensitive to ceftriaxone and MRSA sensitive to vancomycin Objective - Vital Signs Vital signs: Vital Signs Temp 97.7 F 04/23/24 14:11 Pulse 89 04/23/24 14:11 Resp 17 04/23/24 14:11 BP 97/58 04/23/24 14:11 Pulse Ox 97 04/23/24 14:11 FiO2 Intake & Output 04/22/24 04/23/24 04/23/24 18:59 06:59 18:59 Intake Total 600 Balance 600 Weight 71.668 kg Intake: Intake, IV Titration 600 Amount Cefepime 2 gm In Sodium 100 Chloride 0.9% 100 ml @ 25 mls/hr IVPB Q8HR [facility] Rx# :[id number] Vancomycin 1,250 mg In 500 Sodium Chloride 0.9% 250 ml @ 125 mls/hr IVPB Q8H [facility] Rx#:[id number] Other: # Voids 1 2 - Exam GENERAL DESCRIPTION: Middle-age male lying in bed in no distress RESPIRATORY SYSTEM: Unlabored breathing , decreased breath sounds at bases HEART: S1 S2 regular rate and rhythm , ABDOMEN: Soft , no tenderness EXTREMITIES: Right foot is currently dressed - Labs CBC & Chem 7: 04/23/24 05:21 04/23/24 05:21 Labs: Abnormal Lab Results - Last 24 Hours (Table) 04/22/24 04/22/24 04/23/24 Range/Units 17:24 20:56 01:48 RBC (4.40-5.60) X 10*6/uL Hgb (13.0-17.0) g/dL Hct (39.6-50.0) % Glucose (70-110) mg/dL POC Glucose (mg/dL) 392 H 360 H 275 H (70-110) mg/dL 04/23/24 04/23/24 04/23/24 Range/Units 05:21 05:21 06:06 RBC 4.08 L (4.40-5.60) X 10*6/uL Hgb 12.7 L (13.0-17.0) g/dL Hct 37.5 L (39.6-50.0) % Glucose 320 H (70-110) mg/dL POC Glucose (mg/dL) 284 H (70-110) mg/dL 04/23/24 Range/Units 11:40 RBC (4.40-5.60) X 10*6/uL Hgb (13.0-17.0) g/dL Hct (39.6-50.0) % Glucose (70-110) mg/dL POC Glucose (mg/dL) 320 H (70-110) mg/dL Microbiology - Last 24 Hours (Table) 04/19/24 12:50 Anaerobic Culture - Final Foot - Right 04/21/24 16:19 Gram Stain - Preliminary Foot - Right Tissue Culture - Preliminary Gram Neg Bacilli Presumptive Staph aureus Assessment and Plan (1) Diabetic ulcer of right foot Current Visit: Yes Status: Acute Code(s): E11.621 - TYPE 2 DIABETES MELLITUS WITH FOOT ULCER; L97.519 - NON-PRS CHRONIC ULCER OTH PRT RIGHT FOOT W UNSP SEVERITY SNOMED Code(s): 542935452 (2) Foot osteomyelitis, right Current Visit: Yes Status: Acute Code(s): M86.9 - OSTEOMYELITIS, UNSPECIFIED SNOMED Code(s): 5281564957355256 (3) Allergy to multiple antibiotics Current Visit: Yes Status: Acute Code(s): Z88.1 - ALLERGY STATUS TO OTHER ANTIBIOTIC AGENTS SNOMED Code(s): 260251178 (4) Diabetic foot infection Current Visit: No Status: Acute Code(s): E11.628 - TYPE 2 DIABETES MELLITUS WITH OTHER SKIN COMPLICATIONS; L08.9 - LOCAL INFECTION OF THE SKIN AND SUBCUTANEOUS TISSUE, UNSP SNOMED Code(s): 820799715 Plan: 1patient presented to hospital with worsening wound to the right foot lateral border with worsening pain swelling redness patient did have abnormal x-ray concerning for osteomyelitis in this patient has been on a prolonged course of oral doxycycline with failure of the outpatient antibiotics and a question of MRSA versus gram-negative infection. 2local culture has been obtained which are currently growing Staph aureus and gram-negative with ID sensitivities pending 3vascular surgery has evaluated the patient and is status post debridement of the wound down to the bone suggestive of osteomyelitis, bone scan suggestive of osteomyelitis 4patient with multiple antibiotic ALLERGIES that would limit the number of antibiotic safe to use 5patient currently waiting for PICC line placement and outpatient antibiotic arrangement will continue with the vancomycin transition cefepime to Rocephin 2 g daily Dictation was produced using [employer] dictation software. please excuse any grammatical, word or spelling errors. Time with Patient: Less than 30
[2024-04-23] MEDS: metroNIDAZOLE 500 MG TAB PO SCH (23:24)
[2024-04-24 02:22] LABS: Glucose,Whole Blood 500 mg/dL (70-110)
[2024-04-24 06:13] LABS: Glucose,Whole Blood 407 mg/dL (70-110)
[2024-04-24 10:56] LABS: BUN/Creat Ratio 18.89 Ratio (12.00-20.00); Calcium 9.1 mg/dL (8.7-10.3); Carbon Dioxide 28.4 mmol/L (21.6-31.8); Chloride 96 mmol/L (96-109); Glucose 550 mg/dL (70-110); Potassium 4.5 mmol/L (3.5-5.5); Sodium 135 mmol/L (135-145)
[2024-04-24 11:27] LABS: Glucose,Whole Blood 240 mg/dL (70-110)
[2024-04-24 12:05] LABS: HCT 37.9 % (39.6-50.0); HGB 12.7 g/dL (13.0-17.0); MCH 31.1 pg (27.0-32.0); MCHC 33.5 g/dL (32.0-37.0); MCV 92.7 FL (80.0-97.0); Mean Platelet Volume 12.2 FL (9.5-12.2); NRBC Per 100 WBC 0 X 10*3/uL (0.00-0.01); Platelet Count 265 X 10*3/uL (140-440); RBC 4.09 X 10*6/uL (4.40-5.60); WBC 6.68 X 10*3/uL (4.50-10.00)
--- NOTE | 2024-04-24 12:50 | P.PN ---
Subjective Progress Note Date: 04/24/24 Principal diagnosis: Hospital course: Patient is a 38 year old male with past medical history of insulin dependent diabetes mellitus type 1, diabetic retinopathy, diabetic kidney disease, DKA, hypertension presented to the ED with right foot wound. Patient reports having a wound on lateral side right foot below the little toe. He first noticed the wound a week ago. The pain has been worsening over the past couple of days and he noticed a blister that popped and had a thick discharge. He endorses 9/10 severity of pain currently in the right foot. He mentions being hospitalised for similar diabetic ulcers in the past 3 years. He reports undergoing amputation of the right fifth toe over a year ago as the ulcer had led to osteomyelitis and was treated with lots of antibiotics. He is currently on Doxycycline at home. He sees a wound care nurse. He mentions of an extensive family history of Diabetes mellitus. Additionally, he reports having asthma as a childhe states he has been feeling depressed lately and has suicidal ideation. He does have a prior suicide attempt but does not have a plan currently. Denies fever, chills, shortness of breath, cough, chest pain, palpitations, abdominal pain, nausea, vomiting, hematuria, dysuria, hematochezia, melena, headache, slurred speech, numbness, tingling, dizziness, lightheadedness. ED documentation reviewed. In the ED patient was treated with cefepime, vancomycin, morphine, Zofran, Tums, Maalox. Vitals on admission T 97.5 F, [place] 99 bpm, RR 16, BP 105/74, O2 sat 100% on room air Foot x-ray shows wound/ulcer along the lateral foot, there is subtle focal osteolysis of the underlying fifth metatarsal head on the oblique and lateral views, findings highly suspicious for contiguous osteomyelitis Labs on admission show WBC 9.3, hemoglobin 14.4, sodium 134, potassium 4.6, creatinine 0.76, glucose 333, lactic acid 1.0, CRP 1.2 04/20/24: Patient seen and examined today at bedside. He endorses shortness of breath but is currently saturating at 99% on room air. He continues to be on Vancomycin and Cefepime. Labs today show hemoglobin 12.8. 04/21/24: Patient evalauted at bedside. Vital signs are stable. Denies shortness of breath. Labs today show Hb 13.2, Na 135. Chest x-ray shows no acute cardiopulmonary process. Lower extremity ultrasound done today. CRP 0.5, ESR 20, A1c 10 point 04/22/24: Patient examined today. Vital signs are stable. Labs today show sodium 138, potassium 3.9, creatinine 0.69. Wound culture shows few of MRSA, Enterobacter cloacae, Klebsiella pneumonia and no anaerobes isolated to date. Patient underwent debridement of the wound and deep culture from the bone followed by santyl dressing yesterday. 04/23/24: Patient seen and examined today. He complains of nausea but mentions that it is chronic and that Zofran doesn't help with it. He denies shortness of breath. Labs today show hemoglobin 12.7,Sodium 138, glucose 284. tissue culture shows gram-negative bacilli and presumptive Staph aureus. Bone scan nuclear medicine shows three-phase bone scan abnormality in the region of the fifth metatarsal head corresponding to suspicious site on radiograph, highly suggestive of osteomyelitis. 04/24. Patient seen and examined. States he feels better. PICC line to be placed tomorrow. Review of systems: Pertinent positives and negatives as discussed in HPI, a complete review of systems was performed and all other systems are negative. Vitals: Signs Reviewed Physical examination: Vital signs reviewed General: nontoxic, no distress, appears at stated age, normal BMI Derm: warm, dry, intact Head: atraumatic, normocephalic, symmetric Eyes: EOMI, anicteric sclera Mouth: no lip lesion, mucus membranes moist Cardiovascular: S1 S2 reg, no murmur Lungs: CTA bilateral, no rhonchi, no rales, no accessory muscle use Abdominal: soft, non-tender to palpation Extremities: Right foot wound bandaged, decreased sensation on b/l foot up to ankle, no cyanosis, clubbing, or pedal edema. Neuro: Alert, Oriented, Gross neurological examination did not reveal any focal deficits. Psych: well appearing, appropriate affect Assessment/Plan: Patient is a 38 year old male with past medical history of diabetes mellitus, diabetic retinopathy, diabetic nephropathy, DKA, hypertension presented to the ED with right foot wound. He has been admitted for osteomyelitis of the right fifth metatarsal and suicidal ideation. Patient to get PICC line for outpatient IV antibiotics. Active: #. Osteomyelitis of the right fifth metatarsal secondary to diabetic foot ulcer #. S/p Wound debridement and deep culture of bone on 04/21/24 #. Insulin dependent Diabetes mellitus, type 1 Foot x-ray shows wound/ulcer along the lateral foot, there is subtle focal osteolysis of the underlying fifth metatarsal head on the oblique and lateral views, findings highly suspicious for contiguous osteomyelitis Received Cefepime and Vancomycin in the ED Wound culture shows few of MRSA, Enterobacter cloacae, Klebsiella pneumonia and no anaerobes isolated to date Bone scan nuclear medicine shows three-phase bone scan abnormality in the region of the fifth metatarsal head corresponding to suspicious site on radiograph, highly suggestive of osteomyelitis. Tissue culture shows gram-negative bacilli and presumptive Staph aureus. Continue Vancomycin 1250 mg IVPB Q8HR and Cefepime 2gm IVPB Q8HR Continue Insulin pump Continue acetaminophen 60 mg p.o. every 6 hours as needed, ibuprofen 400 mg p.o. every 6 hours as needed, tramadol 50 mg p.o. every 6 hours as needed and Dilaudi d 0.5 mg IVP Q6HR PRN for pain management PICC line for outpatient IV antibiotics Vascular surgery is following ID following #. Dyspepsia/indigestion Continue Tums 1000 mg p.o. every 4 hours as needed, Maalox 15 mL p.o. every 6 hours as needed #. Nausea and vomiting Continue symptomatic treatment #. Mild hyponatremia, resolved #. Suicidal ideation #. Major depressive disorder Suicide precautions Continue Mirtazapine 15 mg PO HS Psych consulted, recommend to increase Duloxetine to 90 mg PO daily and discontinue 1:1 sitter Outpatient mental health care at [facility] Chronic: #. Hypertension #. Neuropathy #. Migraine #. Allergic rhinitis #. Diabetic gastroparesis #. History of Asthma Continue home meds albuterol 1 puff every 4 hours as needed, baclofen 10 mg p.o. twice daily, fluticasone nasal spray, hydroxyzine 50 mg p.o. at bedtime, loratadine 10 mg p.o. daily, losartan 12.5 mg p.o. daily, metoclopramide 5 mg p.o. daily as needed, montelukast 10 mg p.o. daily prednisolone eyedrops, pregabalin 100 mg p.o. 3 times daily, sumatriptan 50 mg p.o. daily as needed, Ketorolac eye drops left eye QID Objective - Vital Signs Vital signs: Vital Signs Temp 97.5 F L 04/24/24 07:01 Pulse 78 04/24/24 07:01 Resp 18 04/24/24 07:01 BP 90/53 04/24/24 07:01 Pulse Ox 98 04/24/24 07:01 FiO2 Intake & Output 04/23/24 04/24/24 04/24/24 18:59 06:59 18:59 Intake Total 1190 Balance 1190 Intake: Intake, IV Titration 350 Amount Cefepime 2 gm In Sodium 100 Chloride 0.9% 100 ml @ 25 mls/hr IVPB Q8HR [facility] Rx# :[id number] Vancomycin 1,250 mg In 250 Sodium Chloride 0.9% 250 ml @ 125 mls/hr IVPB Q12H [facility] Rx#:[id number] Oral 840 Other: # Voids 3 5 - Labs CBC & Chem 7: 04/24/24 03:26 04/24/24 03:26 Labs: Abnormal Lab Results - Last 24 Hours (Table) 04/23/24 04/23/24 04/24/24 Range/Units 16:44 21:01 02:19 RBC (4.40-5.60) X 10*6/uL Hgb (13.0-17.0) g/dL Hct (39.6-50.0) % Glucose (70-110) mg/dL POC Glucose (mg/dL) 390 H 412 H 500 H (70-110) mg/dL 04/24/24 04/24/24 04/24/24 Range/Units 03:26 03:26 06:12 RBC 4.09 L (4.40-5.60) X 10*6/uL Hgb 12.7 L (13.0-17.0) g/dL Hct 37.9 L (39.6-50.0) % Glucose 550 A* (70-110) mg/dL POC Glucose (mg/dL) 407 H (70-110) mg/dL 04/24/24 Range/Units 11:26 RBC (4.40-5.60) X 10*6/uL Hgb (13.0-17.0) g/dL Hct (39.6-50.0) % Glucose (70-110) mg/dL POC Glucose (mg/dL) 240 H (70-110) mg/dL Microbiology - Last 24 Hours (Table) 04/21/24 16:19 Gram Stain - Preliminary Foot - Right Tissue Culture - Preliminary Enterobacter cloacae Methicillin resist S. aureus Gram Neg Bacilli Streptococcus gordonii 04/21/24 16:19 Anaerobic Culture - Final Foot - Right Finegoldia magna 04/19/24 12:50 Anaerobic Culture - Final Foot - Right
--- NOTE | 2024-04-24 13:58 | P.PN ---
Subjective Progress Note Date: 04/24/24 Principal diagnosis: Reason for follow-up is right diabetic foot ulcer/osteomyelitis Patient is a 38-year-old male with a past medical history significant for diabetes mellitus hypertension history of diabetic foot infection this patient has been dealing with a wound on the lateral aspect of the right foot previously treated at [facility], now presenting with worsening swelling redness and did have abnormal x-ray suggestive of osteomyelitis. On today's evaluation that is 04/24/2024, Patient is afebrile patient is currently on room air and denies having any shortness of breath, the patient denies any chest pain or cough, the patient denies any nausea vomiting did not have any abdominal pain and no diarrhea and denies any worsening pain to the right foot wound. Patient did have a creatinine of 0.9, creatinine 6.68 Objective - Vital Signs Vital signs: Vital Signs Temp 97.5 F L 04/24/24 07:01 Pulse 78 04/24/24 07:01 Resp 18 04/24/24 07:01 BP 90/53 04/24/24 07:01 Pulse Ox 98 04/24/24 07:01 FiO2 Intake & Output 04/23/24 04/24/24 04/24/24 18:59 06:59 18:59 Intake Total 1190 Balance 1190 Intake: Intake, IV Titration 350 Amount Cefepime 2 gm In Sodium 100 Chloride 0.9% 100 ml @ 25 mls/hr IVPB Q8HR BRI Rx# :[id number] Vancomycin 1,250 mg In 250 Sodium Chloride 0.9% 250 ml @ 125 mls/hr IVPB Q12H BRI Rx#:[id number] Oral 840 Other: # Voids 3 5 - Exam GENERAL DESCRIPTION: Middle-age male lying in bed in no distress RESPIRATORY SYSTEM: Unlabored breathing , decreased breath sounds at bases HEART: S1 S2 regular rate and rhythm , ABDOMEN: Soft , no tenderness EXTREMITIES: Right foot lateral border wound at the base of the fifth toe with some slough tissue surrounding redness decreased no foul-smelling drainage - Labs CBC & Chem 7: 04/24/24 03:26 04/24/24 03:26 Labs: Abnormal Lab Results - Last 24 Hours (Table) 04/23/24 04/23/24 04/24/24 Range/Units 16:44 21:01 02:19 RBC (4.40-5.60) X 10*6/uL Hgb (13.0-17.0) g/dL Hct (39.6-50.0) % Glucose (70-110) mg/dL POC Glucose (mg/dL) 390 H 412 H 500 H (70-110) mg/dL 04/24/24 04/24/24 04/24/24 Range/Units 03:26 03:26 06:12 RBC 4.09 L (4.40-5.60) X 10*6/uL Hgb 12.7 L (13.0-17.0) g/dL Hct 37.9 L (39.6-50.0) % Glucose 550 A* (70-110) mg/dL POC Glucose (mg/dL) 407 H (70-110) mg/dL 04/24/24 Range/Units 11:26 RBC (4.40-5.60) X 10*6/uL Hgb (13.0-17.0) g/dL Hct (39.6-50.0) % Glucose (70-110) mg/dL POC Glucose (mg/dL) 240 H (70-110) mg/dL Microbiology - Last 24 Hours (Table) 04/21/24 16:19 Gram Stain - Preliminary Foot - Right Tissue Culture - Preliminary Enterobacter cloacae Methicillin resist S. aureus Gram Neg Bacilli Streptococcus gordonii 04/21/24 16:19 Anaerobic Culture - Final Foot - Right Finegoldia magna 04/19/24 12:50 Anaerobic Culture - Final Foot - Right Assessment and Plan (1) Diabetic ulcer of right foot Current Visit: Yes Status: Acute Code(s): E11.621 - TYPE 2 DIABETES MELLITUS WITH FOOT ULCER; L97.519 - NON-PRS CHRONIC ULCER OTH PRT RIGHT FOOT W UNSP SEVERITY SNOMED Code(s): 294884145 (2) Foot osteomyelitis, right Current Visit: Yes Status: Acute Code(s): M86.9 - OSTEOMYELITIS, UNSPECIFIED SNOMED Code(s): 8132280985775304 (3) Allergy to multiple antibiotics Current Visit: Yes Status: Acute Code(s): Z88.1 - ALLERGY STATUS TO OTHER ANTIBIOTIC AGENTS SNOMED Code(s): 760262982 (4) Diabetic foot infection Current Visit: No Status: Acute Code(s): E11.628 - TYPE 2 DIABETES MELLITUS WITH OTHER SKIN COMPLICATIONS; L08.9 - LOCAL INFECTION OF THE SKIN AND SUBCUTANEOUS TISSUE, UNSP SNOMED Code(s): 451199484 Plan: 1patient presented to hospital with worsening wound to the right foot lateral border with worsening pain swelling redness patient did have abnormal x-ray concerning for osteomyelitis in this patient has been on a prolonged course of oral doxycycline with failure of the outpatient antibiotics and a question of MRSA versus gram-negative infection. 2local culture has been obtained which are currently growing MRSA Enterobacter and Streptococcus along with Klebsiella 3vascular surgery has evaluated the patient and is status post debridement of the wound down to the bone suggestive of osteomyelitis, bone scan suggestive of osteomyelitis 4patient with multiple antibiotic ALLERGIES that would limit the number of antibiotic safe to use 5patient will continue with the vancomycin, rocephin 2 g daily and Flagyl waiting for PICC line placement and outpatient IV antibiotic arrangement Dictation was produced using [employer] dictation software. please excuse any grammatical, word or spelling errors.
[2024-04-24 14:43] LABS: Glucose,Whole Blood 93 mg/dL (70-110)
[2024-04-24 16:39] LABS: Glucose,Whole Blood 152 mg/dL (70-110)
[2024-04-24 20:13] LABS: Glucose,Whole Blood 260 mg/dL (70-110)
[2024-04-25 02:04] LABS: Glucose,Whole Blood 244 mg/dL (70-110)
[2024-04-25] MEDS: VANCOMYCIN TROUGH DUE 1 EACH MISC MISCELLANE ONE (04:14)
[2024-04-25 04:19] LABS: African American GFR (CKD) >90 (>60 ml/min/1.73 sqM); Non-African American GFR(CKD) >90 (>60 ml/min/1.73 sqM)
[2024-04-25 06:04] LABS: Glucose,Whole Blood 182 mg/dL (70-110)
[2024-04-25 08:49] LABS: BUN/Creat Ratio 19.88 Ratio (12.00-20.00); Blood Urea Nitrogen 15.9 mg/dL (9.0-27.0); Calcium 8.9 mg/dL (8.7-10.3); Chloride 102 mmol/L (96-109); Glucose 210 mg/dL (70-110); Potassium 3.9 mmol/L (3.5-5.5); Sodium 140 mmol/L (135-145)
[2024-04-25 09:26] LABS: HCT 39.7 % (39.6-50.0); HGB 12.9 g/dL (13.0-17.0); MCH 30.2 pg (27.0-32.0); MCHC 32.5 g/dL (32.0-37.0); Mean Platelet Volume 12.4 FL (9.5-12.2); NRBC Per 100 WBC 0 X 10*3/uL (0.00-0.01); Platelet Count 285 X 10*3/uL (140-440); RBC 4.27 X 10*6/uL (4.40-5.60); RDW 12.1 % (11.5-14.5); WBC 9.27 X 10*3/uL (4.50-10.00)
[2024-04-25 11:45] LABS: Glucose,Whole Blood 165 mg/dL (70-110)
--- NOTE | 2024-04-25 12:57 | P.PN ---
Progress Note - Text 38-year-old diabetic male patient has a history of wound right foot lateral aspect the foot we did the debridement patient is growing MRSA care of infectious disease patient has a PICC line placed the dressing today with using Santyl cream most likely patient will go home today or tomorrow follow-up with me Thursday with Santyl cream this should be changed on daily wound clinic on
--- NOTE | 2024-04-25 13:45 | P.DS ---
Providers Date of admission: 04/19/24 09:42 Expected date of discharge: 04/25/24 Attending physician: Jason Guerrero MD Consults: 04/18/24 18:43 Consult Physician Routine Consulting Provider: Psychiatry - [facility] Consult Reason/Comments: SI Do you want consulting provider notified?: Already Contacted Consult Physician Routine Consulting Provider: Brett Gonzalez Consult Reason/Comments: Osteomyelitis Do you want consulting provider notified?: Yes, Notify in am 04/20/24 08:53 Consult Physician Routine Consulting Provider: Tristin Luu Consult Reason/Comments: Right foot abscess, debridemnt and deep cultures Do you want consulting provider notified?: Yes Primary care physician: [facility] Course: Discharge diagnosis: Osteomyelitis of the right fifth metatarsal secondary to diabetic foot ulcer S/p debridement and deep cultures of the bone on 04/21/2024 Insulin-dependent diabetes mellitus, type I Dyspepsia/indigestion Nausea and vomiting Mild hyponatremia, resolved Suicidal ideation Major depressive disorder Hypertension Neuropathy Migraine Allergic rhinitis Diabetic gastroparesis History of asthma Hospital Course: Patient is a 38 year old male with past medical history of insulin dependent diabetes mellitus type 1, diabetic retinopathy, diabetic kidney disease, DKA, hypertension presented to the ED with right foot wound. Patient reports having a wound on lateral side right foot below the little toe. He first noticed the wound a week ago. The pain has been worsening over the past couple of days and he noticed a blister that popped and had a thick discharge. He endorses 9/10 severity of pain currently in the right foot. He mentions being hospitalised for similar diabetic ulcers in the past 3 years. He reports undergoing amputation of the right fifth toe over a year ago as the ulcer had led to osteomyelitis and was treated with lots of antibiotics. He is currently on Doxycycline at home. He sees a wound care nurse. He mentions of an extensive family history of Diabetes mellitus. Additionally, he reports having asthma as a childhe states he has been feeling depressed lately and has suicidal ideation. He does have a prior suicide attempt but does not have a plan currently.Denies fever, chills, shortness of breath, cough, chest pain, palpitations, abdominal pain, nausea, vomiting, hematuria, dysuria, hematochezia, melena, headache, slurred speech, numbness, tingling, dizziness, lightheadedness. ED documentation reviewed. In the ED patient was treated with cefepime, vancomycin, morphine, Zofran, Tums, Maalox. Vitals on admission T 97.5 F, SC 99 bpm, RR 16, BP 105/74, O2 sat 100% on room air. Foot x-ray shows wound/ulcer along the lateral foot, there is subtle focal osteolysis of the underlying fifth metatarsal head on the oblique and lateral views, findings highly suspicious for contiguous osteomyelitis. Labs on admission show WBC 9.3, hemoglobin 14.4, sodium 134, potassium 4.6, creatinine 0.76, glucose 333, lactic acid 1.0, CRP 1.2 04/20/24: Patient seen and examined today at bedside. He endorses shortness of breath but is currently saturating at 99% on room air. He continues to be on Vancomycin and Cefepime. Labs today show hemoglobin 12.8. 04/21/24: Patient evalauted at bedside. Vital signs are stable. Denies shortness of breath. Labs today show Hb 13.2, Na 135. Chest x-ray shows no acute cardiopulmonary process. Lower extremity ultrasound done today. CRP 0.5, ESR 20, A1c 10 point 04/22/24: Patient examined today. Vital signs are stable. Labs today show sodium 138, potassium 3.9, creatinine 0.69. Wound culture shows few of MRSA, Enterobacter cloacae, Klebsiella pneumonia and no anaerobes isolated to date. Patient underwent debridement of the wound and deep culture from the bone followed by santyl dressing yesterday. 04/23/24: Patient seen and examined today. He complains of nausea but mentions that it is chronic and that Zofran doesn't help with it. He denies shortness of breath. Labs today show hemoglobin 12.7,Sodium 138, glucose 284. tissue culture shows gram-negative bacilli and presumptive Staph aureus. Bone scan nuclear medicine shows three-phase bone scan abnormality in the region of the fifth metatarsal head corresponding to suspicious site on radiograph, highly suggestive of osteomyelitis. 04/24. Patient seen and examined. States he feels better. PICC line to be placed tomorrow. 04/25/24: Patient evaluated at bedside. Vital signs stable. Labs today show creatinine 0.7. Tissue culture shows Enterobacter cloacae, MRSA, gram-negative bacilli, Streptococcus gordonii, Finegoldia Magna. Labs today show hemoglobin 12.9, glucose 182. Patient had the PICC line placed in today for outpatient IV antibiotics. Patient seen at bedside today and is feeling good and excited about discharge. Patient will be discharged today and is given a script for antibiotics to be given through the PICC line. Patient is given a handout for diabetic foot ulcer and osteomyelitis and is advised to be compliant with medications. Patient is advised to follow-up with PCP in 1-2 days, ID in 1 week, wound center on 05/02/24 at 12:45 pm . Vital signs are reviewed and stable General: nontoxic, no distress, appears at stated age, normal BMI Derm: warm, dry, intact Head: atraumatic, normocephalic, symmetric Eyes: EOMI, anicteric sclera Mouth: no lip lesion, mucus membranes moist Cardiovascular: S1 S2 reg, no murmur Lungs: CTA bilateral, no rhonchi, no rales, no accessory muscle use Abdominal: soft, non-tender to palpation Extremities: Right foot wound bandaged, decreased sensation on b/l foot up to ankle, no cyanosis, clubbing, or pedal edema. Neuro: Alert, Oriented, Gross neurological examination did not reveal any focal deficits. Psych: well appearing, appropriate affect A total of 30 minutes of time were spent preparing this complex discharge summary. Patient was discharged on 04/25/24 at 1345. Patient Condition at Discharge: Stable Plan - Discharge Summary New Discharge Prescriptions: New metroNIDAZOLE [Flagyl] 500 mg PO TID #90 tab Discontinued Doxycycline Hyclate 100 mg PO BID No Action Loratadine [Claritin] 10 mg PO DAILY Montelukast [Singulair] 10 mg PO DAILY Albuterol Sulfate [Ventolin HFA] 1 puff INHALATION RT-Q4H PRN PRN Reason: Shortness Of Breath Famotidine [Pepcid] 40 mg PO BID Pantoprazole [Protonix] 40 mg PO BID Ketorolac 0.5% Ophth Soln [Acular 0.5%] 1 drop LEFT EYE QID Pregabalin [Lyrica] 100 mg PO TID DULoxetine HCL [Cymbalta] 30 mg PO DAILY DULoxetine HCL [Cymbalta] 20 mg PO DAILY Levalbuterol Tartrate [Levalbuterol Tartrate 45 MCG Hfa] 2 puff INHALATION RT-Q4H PRN PRN Reason: Shortness Of Breath Fluticasone Nasal [place] [Flonase Nasal [place]] 1 spr EA NOSTRIL DAILY Ondansetron Odt [Zofran ODT] 4 mg PO DAILY PRN PRN Reason: Nausea And Vomiting Ibuprofen [Motrin] 800 mg PO TID PRN PRN Reason: Pain Insulin Aspart (For Pump) [NovoLOG (For Pump)] 0.01 unit SQ-PUMP CONTINUOUS Metoclopramide [Reglan] 5 mg PO DAILY PRN PRN Reason: Nausea prednisoLONE ACETATE 1% OPHTH [Pred Forte 1%] 1 drop LEFT EYE QID SUMAtriptan succinate [Imitrex] 50 mg PO DAILY PRN PRN Reason: Migraine Headache Losartan [Cozaar] 12.5 mg PO DAILY Gabapentin [Neurontin] 400 mg PO TID Baclofen [Lioresal] 10 mg PO BID hydrOXYzine HCL [Atarax] 25 mg PO BID PRN PRN Reason: Anxiety hydrOXYzine HCL [Atarax] 50 mg PO HS Mirtazapine [Remeron] 15 mg PO HS Discharge Medication List Loratadine [Claritin] 10 mg PO DAILY 03/17/18 [History] Albuterol Sulfate [Ventolin HFA] 1 puff INHALATION RT-Q4H PRN 07/25/21 [History] Montelukast [Singulair] 10 mg PO DAILY 07/25/21 [History] Ondansetron Odt [Zofran ODT] 4 mg PO DAILY PRN 07/25/21 [History] Ibuprofen [Motrin] 800 mg PO TID PRN 06/19/22 [History] Insulin Aspart (For Pump) [NovoLOG (For Pump)] 0.01 unit SQ-PUMP CONTINUOUS 06/19/22 [History] Famotidine [Pepcid] 40 mg PO BID 10/03/22 [History] Metoclopramide [Reglan] 5 mg PO DAILY PRN 11/23/22 [History] Pantoprazole [Protonix] 40 mg PO BID 11/23/22 [History] Baclofen [Lioresal] 10 mg PO BID 04/18/24 [History] DULoxetine HCL [Cymbalta] 20 mg PO DAILY 04/18/24 [History] DULoxetine HCL [Cymbalta] 30 mg PO DAILY 04/18/24 [History] Fluticasone Nasal [place] [Flonase Nasal [place]] 1 spr EA NOSTRIL DAILY 04/18/24 [History] Gabapentin [Neurontin] 400 mg PO TID 04/18/24 [History] Ketorolac 0.5% Ophth Soln [Acular 0.5%] 1 drop LEFT EYE QID 04/18/24 [History] Levalbuterol Tartrate [Levalbuterol Tartrate 45 MCG Hfa] 2 puff INHALATION RT- Q4H PRN 04/18/24 [History] Losartan [Cozaar] 12.5 mg PO DAILY 04/18/24 [History] Mirtazapine [Remeron] 15 mg PO HS 04/18/24 [History] Pregabalin [Lyrica] 100 mg PO TID 04/18/24 [History] SUMAtriptan succinate [Imitrex] 50 mg PO DAILY PRN 04/18/24 [History] hydrOXYzine HCL [Atarax] 25 mg PO BID PRN 04/18/24 [History] hydrOXYzine HCL [Atarax] 50 mg PO HS 04/18/24 [History] prednisoLONE ACETATE 1% OPHTH [Pred Forte 1%] 1 drop LEFT EYE QID 04/18/24 [History] metroNIDAZOLE [Flagyl] 500 mg PO TID #90 tab 04/25/24 [Rx] Follow up Appointment(s)/Referral(s): Leila Bolton NPC [REFERRING] - 1-2 days Wound Center[facility] [NON-STAFF] - 05/02/24 12:45 pm Brett Gonzalez MD [STAFF PHYSICIAN] - 1 Week [facility], [NON-STAFF] - 1-2 Days ([facility] will call you to schedule your home nursing visits to begin IV antibiotic teaching. Your first visit will be tomorrow.)
--- NOTE | 2024-04-25 15:06 | P.PN ---
Subjective Progress Note Date: 04/25/24 Principal diagnosis: Hospital course: Patient is a 38 year old male with past medical history of insulin dependent diabetes mellitus type 1, diabetic retinopathy, diabetic kidney disease, DKA, hypertension presented to the ED with right foot wound. Patient reports having a wound on lateral side right foot below the little toe. He first noticed the wound a week ago. The pain has been worsening over the past couple of days and he noticed a blister that popped and had a thick discharge. He endorses 9/10 severity of pain currently in the right foot. He mentions being hospitalised for similar diabetic ulcers in the past 3 years. He reports undergoing amputation of the right fifth toe over a year ago as the ulcer had led to osteomyelitis and was treated with lots of antibiotics. He is currently on Doxycycline at home. He sees a wound care nurse. He mentions of an extensive family history of Diabetes mellitus. Additionally, he reports having asthma as a childhe states he has been feeling depressed lately and has suicidal ideation. He does have a prior suicide attempt but does not have a plan currently. Denies fever, chills, shortness of breath, cough, chest pain, palpitations, abdominal pain, nausea, vomiting, hematuria, dysuria, hematochezia, melena, headache, slurred speech, numbness, tingling, dizziness, lightheadedness. ED documentation reviewed. In the ED patient was treated with cefepime, vancomycin, morphine, Zofran, Tums, Maalox. Vitals on admission T 97.5 F, MI 99 bpm, RR 16, BP 105/74, O2 sat 100% on room air Foot x-ray shows wound/ulcer along the lateral foot, there is subtle focal osteolysis of the underlying fifth metatarsal head on the oblique and lateral views, findings highly suspicious for contiguous osteomyelitis Labs on admission show WBC 9.3, hemoglobin 14.4, sodium 134, potassium 4.6, creatinine 0.76, glucose 333, lactic acid 1.0, CRP 1.2 04/20/24: Patient seen and examined today at bedside. He endorses shortness of breath but is currently saturating at 99% on room air. He continues to be on Vancomycin and Cefepime. Labs today show hemoglobin 12.8. 04/21/24: Patient evalauted at bedside. Vital signs are stable. Denies shortness of breath. Labs today show Hb 13.2, Na 135. Chest x-ray shows no acute cardiopulmonary process. Lower extremity ultrasound done today. CRP 0.5, ESR 20, A1c 10 point 04/22/24: Patient examined today. Vital signs are stable. Labs today show sodium 138, potassium 3.9, creatinine 0.69. Wound culture shows few of MRSA, Enterobacter cloacae, Klebsiella pneumonia and no anaerobes isolated to date. Patient underwent debridement of the wound and deep culture from the bone followed by santyl dressing yesterday. 04/23/24: Patient seen and examined today. He complains of nausea but mentions that it is chronic and that Zofran doesn't help with it. He denies shortness of breath. Labs today show hemoglobin 12.7,Sodium 138, glucose 284. tissue culture shows gram-negative bacilli and presumptive Staph aureus. Bone scan nuclear medicine shows three-phase bone scan abnormality in the region of the fifth metatarsal head corresponding to suspicious site on radiograph, highly suggestive of osteomyelitis. 04/24. Patient seen and examined. States he feels better. PICC line to be placed tomorrow. 04/25/24: Patient evaluated at bedside. Vital signs stable. Labs today show creatinine 0.7. Tissue culture shows Enterobacter cloacae, MRSA, gram-negative bacilli, Streptococcus gordonii, Finegoldia Magna. Labs today show hemoglobin 12.9, glucose 182. Review of systems: Pertinent positives and negatives as discussed in HPI, a complete review of systems was performed and all other systems are negative. Vitals: Signs Reviewed Physical examination: Vital signs reviewed General: nontoxic, no distress, appears at stated age, normal BMI Derm: warm, dry, intact Head: atraumatic, normocephalic, symmetric Eyes: EOMI, anicteric sclera Mouth: no lip lesion, mucus membranes moist Cardiovascular: S1 S2 reg, no murmur Lungs: CTA bilateral, no rhonchi, no rales, no accessory muscle use Abdominal: soft, non-tender to palpation Extremities: Right foot wound bandaged, decreased sensation on b/l foot up to ankle, no cyanosis, clubbing, or pedal edema. Neuro: Alert, Oriented, Gross neurological examination did not reveal any focal deficits. Psych: well appearing, appropriate affect Assessment/Plan: Patient is a 38 year old male with past medical history of diabetes mellitus, diabetic retinopathy, diabetic nephropathy, DKA, hypertension presented to the ED with right foot wound. He has been admitted for osteomyelitis of the right fifth metatarsal and suicidal ideation. Patient to get PICC line for outpatient IV antibiotics. He had the PICC line placement done today. He is awaiting processing by the infusion company. He will be discharged tomorrow 04/26/24. Active: #. Osteomyelitis of the right fifth metatarsal secondary to diabetic foot ulcer #. S/p Wound debridement and deep culture of bone on 04/21/24 #. Insulin dependent Diabetes mellitus, type 1 Foot x-ray shows wound/ulcer along the lateral foot, there is subtle focal osteolysis of the underlying fifth metatarsal head on the oblique and lateral views, findings highly suspicious for contiguous osteomyelitis Received Cefepime and Vancomycin in the ED Wound culture shows few of MRSA, Enterobacter cloacae, Klebsiella pneumonia and no anaerobes isolated to date Bone scan nuclear medicine shows three-phase bone scan abnormality in the region of the fifth metatarsal head corresponding to suspicious site on radiograph, highly suggestive of osteomyelitis. Tissue culture shows Enterobacter cloacae, MRSA, gram-negative bacilli, Streptococcus gordonii, Finegoldia Magna. Continue Vancomycin 1250 mg IVPB Q8HR and Ceftriaxone IVPB Q24HR, Metronidazole 500 mg PO TID Continue Insulin pump Continue acetaminophen 60 mg p.o. every 6 hours as needed, ibuprofen 400 mg p.o. every 6 hours as needed, tramadol 50 mg p.o. every 6 hours as needed and Dilaudid 0.5 mg IVP Q6HR PRN for pain management PICC line placed for outpatient IV antibiotics Vascular surgery is following ID following #. Dyspepsia/indigestion Continue Tums 1000 mg p.o. every 4 hours as needed, Maalox 15 mL p.o. every 6 hours as needed #. Nausea and vomiting Continue metoclopramide 5 mg p.o. daily as needed, prochlorperazine 5 mg p.o. every 8 hours as needed #. Mild hyponatremia, resolved #. Suicidal ideation #. Major depressive disorder Suicide precautions Continue Mirtazapine 15 mg PO HS Psych consulted, recommend to increase Duloxetine to 90 mg PO daily and discontinue 1:1 sitter Outpatient mental health care at [facility] Chronic: #. Hypertension #. Neuropathy #. Migraine #. Allergic rhinitis #. Diabetic gastroparesis #. History of Asthma Continue home meds albuterol 1 puff every 4 hours as needed, baclofen 10 mg p.o. twice daily, fluticasone nasal spray, hydroxyzine 50 mg p.o. at bedtime, loratadine 10 mg p.o. daily, losartan 12.5 mg p.o. daily, metoclopramide 5 mg p.o. daily as needed, montelukast 10 mg p.o. daily prednisolone eyedrops, prega balin 100 mg p.o. 3 times daily, sumatriptan 50 mg p.o. daily as needed, Ketorolac eye drops left eye QID DVT prophylaxis: Enoxaparin 40 mg SQ daily GI prophylaxis: Famotidine 20 mg PO BID Objective - Vital Signs Vital signs: Vital Signs Temp 97.3 F L 04/25/24 07:14 Pulse 85 04/25/24 07:14 Resp 18 04/25/24 07:14 BP 109/72 04/25/24 07:14 Pulse Ox 95 04/25/24 07:14 FiO2 Intake & Output 04/24/24 04/25/24 04/25/24 18:59 06:59 18:59 Other: Voiding Method Toilet # Voids 4 2 - Labs CBC & Chem 7: 04/25/24 03:16 04/25/24 03:16 Labs: Abnormal Lab Results - Last 24 Hours (Table) 04/24/24 04/24/24 04/24/24 Range/Units 03:26 03:26 11:26 RBC 4.09 L (4.40-5.60) X 10*6/uL Hgb 12.7 L (13.0-17.0) g/dL Hct 37.9 L (39.6-50.0) % Glucose 550 A* (70-110) mg/dL POC Glucose (mg/dL) 240 H (70-110) mg/dL 04/24/24 04/24/24 04/25/24 Range/Units 16:38 20:11 02:02 RBC (4.40-5.60) X 10*6/uL Hgb (13.0-17.0) g/dL Hct (39.6-50.0) % Glucose (70-110) mg/dL POC Glucose (mg/dL) 152 H 260 H 244 H (70-110) mg/dL 04/25/24 Range/Units 06:03 RBC (4.40-5.60) X 10*6/uL Hgb (13.0-17.0) g/dL Hct (39.6-50.0) % Glucose (70-110) mg/dL POC Glucose (mg/dL) 182 H (70-110) mg/dL
[2024-04-25] MEDS: VANCOMYCIN 1,500 MG in SODIUM CHLORIDE 0.9% 500 ML 500 ML IVPB SCH (15:34)
[2024-04-25 16:25] LABS: Glucose,Whole Blood 250 mg/dL (70-110)
[2024-04-25 20:28] LABS: Glucose,Whole Blood 308 mg/dL (70-110)
[2024-04-26 01:43] LABS: Glucose,Whole Blood 148 mg/dL (70-110)
[2024-04-26 05:35] LABS: African American GFR (CKD) >90 (>60 ml/min/1.73 sqM); Non-African American GFR(CKD) >90 (>60 ml/min/1.73 sqM)
--- NOTE | 2024-04-26 05:56 | P.PN ---
Subjective Progress Note Date: 04/25/24 Principal diagnosis: Reason for follow-up is right diabetic foot ulcer/osteomyelitis Patient is a 38-year-old male with a past medical history significant for diabetes mellitus hypertension history of diabetic foot infection this patient has been dealing with a wound on the lateral aspect of the right foot previously treated at [facility], now presenting with worsening swelling redness and did have abnormal x-ray suggestive of osteomyelitis. On today's evaluation that is 04/25/2023, patient has been afebrile, patient is breathing comfortably and is currently on room air, patient denies having any significant cough no chest pain, patient denies nausea vomiting or diarrhea and no abdominal pain and denies pain to the right foot wound area. Patient did have a white count 9.27 creatinine 0.70 local culture with MRSA Enterobacter Objective - Vital Signs Vital signs: Vital Signs Temp 97.3 F L 04/25/24 07:14 Pulse 85 04/25/24 07:14 Resp 18 04/25/24 07:14 BP 109/72 04/25/24 07:14 Pulse Ox 95 04/25/24 07:14 FiO2 Intake & Output 04/24/24 04/25/24 04/25/24 18:59 06:59 18:59 Other: Voiding Method Toilet # Voids 4 2 - Exam GENERAL DESCRIPTION: Middle-age male lying in bed in no distress RESPIRATORY SYSTEM: Unlabored breathing , decreased breath sounds at bases HEART: S1 S2 regular rate and rhythm , ABDOMEN: Soft , no tenderness EXTREMITIES: Right foot lateral border wound at the base of the fifth toe with some slough tissue surrounding redness decreased no foul-smelling drainage - Labs CBC & Chem 7: 04/25/24 03:16 04/26/24 04:23 Labs: Abnormal Lab Results - Last 24 Hours (Table) 04/24/24 04/24/24 04/24/24 Range/Units 03:26 11:26 16:38 RBC 4.09 L (4.40-5.60) X 10*6/uL Hgb 12.7 L (13.0-17.0) g/dL Hct 37.9 L (39.6-50.0) % MPV (9.5-12.2) FL Glucose (70-110) mg/dL POC Glucose (mg/dL) 240 H 152 H (70-110) mg/dL 04/24/24 04/25/24 04/25/24 Range/Units 20:11 02:02 03:16 RBC 4.27 L (4.40-5.60) X 10*6/uL Hgb 12.9 L (13.0-17.0) g/dL Hct (39.6-50.0) % MPV 12.4 H (9.5-12.2) FL Glucose (70-110) mg/dL POC Glucose (mg/dL) 260 H 244 H (70-110) mg/dL 04/25/24 04/25/24 Range/Units 03:16 06:03 RBC (4.40-5.60) X 10*6/uL Hgb (13.0-17.0) g/dL Hct (39.6-50.0) % MPV (9.5-12.2) FL Glucose 210 H (70-110) mg/dL POC Glucose (mg/dL) 182 H (70-110) mg/dL Assessment and Plan (1) Diabetic ulcer of right foot Current Visit: Yes Status: Acute Code(s): E11.621 - TYPE 2 DIABETES MELLITUS WITH FOOT ULCER; L97.519 - NON-PRS CHRONIC ULCER OTH PRT RIGHT FOOT W UNSP SEVERITY SNOMED Code(s): 050535355 (2) Foot osteomyelitis, right Current Visit: Yes Status: Acute Code(s): M86.9 - OSTEOMYELITIS, UNSPECIFIED SNOMED Code(s): 2273869974337424 (3) Allergy to multiple antibiotics Current Visit: Yes Status: Acute Code(s): Z88.1 - ALLERGY STATUS TO OTHER ANTIBIOTIC AGENTS SNOMED Code(s): 886614103 (4) Diabetic foot infection Current Visit: No Status: Acute Code(s): E11.628 - TYPE 2 DIABETES MELLITUS WITH OTHER SKIN COMPLICATIONS; L08.9 - LOCAL INFECTION OF THE SKIN AND SUBCUTANEOUS TISSUE, UNSP SNOMED Code(s): 930447450 Plan: 1patient presented to hospital with worsening wound to the right foot lateral border with worsening pain swelling redness patient did have abnormal x-ray concerning for osteomyelitis in this patient has been on a prolonged course of oral doxycycline with failure of the outpatient antibiotics and a question of MRSA versus gram-negative infection. 2local culture has been obtained which are currently growing MRSA Enterobacter and Streptococcus along with Klebsiella 3vascular surgery has evaluated the patient and is status post debridement of the wound down to the bone suggestive of osteomyelitis, bone scan suggestive of osteomyelitis 4patient with multiple antibiotic ALLERGIES that would limit the number of antibiotic safe to use 5patient did have a PICC line placement will continue with the vancomycin, rocephin 2 g daily and Flagyl prescription provided to the disability case manager currently waiting for outpatient antibiotic arrangement Dictation was produced using [employer] dictation software. please excuse any grammatical, word or spelling errors. Time with Patient: Less than 30
[2024-04-26 06:11] LABS: Glucose,Whole Blood 210 mg/dL (70-110)
[2024-04-26 10:55] LABS: Glucose,Whole Blood 168 mg/dL (70-110)
--- NOTE | 2024-04-26 11:46 | P.PN ---
Subjective Progress Note Date: 04/26/24 Principal diagnosis: Hospital course: Patient is a 38 year old male with past medical history of insulin dependent diabetes mellitus type 1, diabetic retinopathy, diabetic kidney disease, DKA, hypertension presented to the ED with right foot wound. Patient reports having a wound on lateral side right foot below the little toe. He first noticed the wound a week ago. The pain has been worsening over the past couple of days and he noticed a blister that popped and had a thick discharge. He endorses 9/10 severity of pain currently in the right foot. He mentions being hospitalised for similar diabetic ulcers in the past 3 years. He reports undergoing amputation of the right fifth toe over a year ago as the ulcer had led to osteomyelitis and was treated with lots of antibiotics. He is currently on Doxycycline at home. He sees a wound care nurse. He mentions of an extensive family history of Diabetes mellitus. Additionally, he reports having asthma as a childhe states he has been feeling depressed lately and has suicidal ideation. He does have a prior suicide attempt but does not have a plan currently. Denies fever, chills, shortness of breath, cough, chest pain, palpitations, abdominal pain, nausea, vomiting, hematuria, dysuria, hematochezia, melena, headache, slurred speech, numbness, tingling, dizziness, lightheadedness. ED documentation reviewed. In the ED patient was treated with cefepime, vancomycin, morphine, Zofran, Tums, Maalox. Vitals on admission T 97.5 F, UT 99 bpm, RR 16, BP 105/74, O2 sat 100% on room air Foot x-ray shows wound/ulcer along the lateral foot, there is subtle focal osteolysis of the underlying fifth metatarsal head on the oblique and lateral views, findings highly suspicious for contiguous osteomyelitis Labs on admission show WBC 9.3, hemoglobin 14.4, sodium 134, potassium 4.6, creatinine 0.76, glucose 333, lactic acid 1.0, CRP 1.2 04/20/24: Patient seen and examined today at bedside. He endorses shortness of breath but is currently saturating at 99% on room air. He continues to be on Vancomycin and Cefepime. Labs today show hemoglobin 12.8. 04/21/24: Patient evalauted at bedside. Vital signs are stable. Denies shortness of breath. Labs today show Hb 13.2, Na 135. Chest x-ray shows no acute cardiopulmonary process. Lower extremity ultrasound done today. CRP 0.5, ESR 20, A1c 10 point 04/22/24: Patient examined today. Vital signs are stable. Labs today show sodium 138, potassium 3.9, creatinine 0.69. Wound culture shows few of MRSA, Enterobacter cloacae, Klebsiella pneumonia and no anaerobes isolated to date. Patient underwent debridement of the wound and deep culture from the bone followed by santyl dressing yesterday. 04/23/24: Patient seen and examined today. He complains of nausea but mentions that it is chronic and that Zofran doesn't help with it. He denies shortness of breath. Labs today show hemoglobin 12.7,Sodium 138, glucose 284. tissue culture shows gram-negative bacilli and presumptive Staph aureus. Bone scan nuclear medicine shows three-phase bone scan abnormality in the region of the fifth metatarsal head corresponding to suspicious site on radiograph, highly suggestive of osteomyelitis. 04/24. Patient seen and examined. States he feels better. PICC line to be placed tomorrow. 04/25/24: Patient evaluated at bedside. Vital signs stable. Labs today show creatinine 0.7. Tissue culture shows Enterobacter cloacae, MRSA, gram-negative bacilli, Streptococcus gordonii, Finegoldia Magna. Labs today show hemoglobin 12.9, glucose 182. Review of systems: Pertinent positives and negatives as discussed in HPI, a complete review of systems was performed and all other systems are negative. Vitals: Signs Reviewed Physical examination: Vital signs reviewed General: nontoxic, no distress, appears at stated age, normal BMI Derm: warm, dry, intact Head: atraumatic, normocephalic, symmetric Eyes: EOMI, anicteric sclera Mouth: no lip lesion, mucus membranes moist Cardiovascular: S1 S2 reg, no murmur Lungs: CTA bilateral, no rhonchi, no rales, no accessory muscle use Abdominal: soft, non-tender to palpation Extremities: Right foot wound bandaged, decreased sensation on b/l foot up to ankle, no cyanosis, clubbing, or pedal edema. Neuro: Alert, Oriented, Gross neurological examination did not reveal any focal deficits. Psych: well appearing, appropriate affect Assessment/Plan: Patient is a 38 year old male with past medical history of diabetes mellitus, diabetic retinopathy, diabetic nephropathy, DKA, hypertension presented to the ED with right foot wound. He has been admitted for osteomyelitis of the right fifth metatarsal and suicidal ideation. Patient to get PICC line for outpatient IV antibiotics. He had the PICC line placement done today. He is awaiting processing by the infusion [facility]. Active: #. Osteomyelitis of the right fifth metatarsal secondary to diabetic foot ulcer #. S/p Wound debridement and deep culture of bone on 04/21/24 #. Insulin dependent Diabetes mellitus, type 1 Foot x-ray shows wound/ulcer along the lateral foot, there is subtle focal osteolysis of the underlying fifth metatarsal head on the oblique and lateral views, findings highly suspicious for contiguous osteomyelitis Received Cefepime and Vancomycin in the ED Wound culture shows few of MRSA, Enterobacter cloacae, Klebsiella pneumonia and no anaerobes isolated to date Bone scan nuclear medicine shows three-phase bone scan abnormality in the region of the fifth metatarsal head corresponding to suspicious site on radiograph, highly suggestive of osteomyelitis. Tissue culture shows Enterobacter cloacae, MRSA, gram-negative bacilli, Streptococcus gordonii, Finegoldia Magna. Continue Vancomycin 1250 mg IVPB Q8HR and Ceftriaxone IVPB Q24HR, Metronidazole 500 mg PO TID Continue Insulin pump Continue acetaminophen 60 mg p.o. every 6 hours as needed, ibuprofen 400 mg p.o. every 6 hours as needed, tramadol 50 mg p.o. every 6 hours as needed and Dilaudid 0.5 mg IVP Q6HR PRN for pain management PICC line placed for outpatient IV antibiotics Vascular surgery is following ID following #. Dyspepsia/indigestion Continue Tums 1000 mg p.o. every 4 hours as needed, Maalox 15 mL p.o. every 6 hours as needed #. Nausea and vomiting Continue metoclopramide 5 mg p.o. daily as needed, prochlorperazine 5 mg p.o. every 8 hours as needed #. Mild hyponatremia, resolved #. Suicidal ideation #. Major depressive disorder Suicide precautions Continue Mirtazapine 15 mg PO HS Psych consulted, recommend to increase Duloxetine to 90 mg PO daily and discontinue 1:1 sitter Outpatient mental health care at [facility] Chronic: #. Hypertension #. Neuropathy #. Migraine #. Allergic rhinitis #. Diabetic gastroparesis #. History of Asthma Continue home meds albuterol 1 puff every 4 hours as needed, baclofen 10 mg p.o. twice daily, fluticasone nasal spray, hydroxyzine 50 mg p.o. at bedtime, loratadine 10 mg p.o. daily, losartan 12.5 mg p.o. daily, metoclopramide 5 mg p.o. daily as needed, montelukast 10 mg p.o. daily prednisolone eyedrops, pregabalin 100 mg p.o. 3 times daily, sumatriptan 50 mg p.o. daily as needed, Ketorolac eye drops left eye QID DVT prophylaxis: Enoxaparin 40 mg SQ daily GI prophylaxis: Famotidine 20 mg PO BID Objective - Vital Signs Vital signs: Vital Signs Temp 97.8 F 04/26/24 08:33 Pulse 76 04/26/24 08:33 Resp 17 04/26/24 08:33 BP 103/66 04/26/24 08:33 Pulse Ox 95 04/26/24 08:33 FiO2 Intake & Output 04/25/24 04/26/24 04/26/24 18:59 06:59 18:59 Intake Total 250 350 Balance 250 350 Intake: Intake, IV Titration 350 Amount Vancomycin 1,500 mg In 350 Sodium Chloride 0.9% 500 ml 500 ml @ 167 mls/hr IVPB Q12H [facility] Rx#: [id number] Oral 250 Other: Voiding Method Toilet # Voids 3 2 - Labs CBC & Chem 7: 04/25/24 03:16 04/26/24 04:23 Labs: Abnormal Lab Results - Last 24 Hours (Table) 04/25/24 04/25/24 04/25/24 Range/Units 11:42 16:23 20:26 POC Glucose (mg/dL) 165 H 250 H 308 H (70-110) mg/dL 04/26/24 04/26/24 04/26/24 Range/Units 01:41 06:10 10:50 POC Glucose (mg/dL) 148 H 210 H 168 H (70-110) mg/dL Microbiology - Last 24 Hours (Table) 04/21/24 16:19 Gram Stain - Final Foot - Right Tissue Culture - Final Enterobacter cloacae Methicillin resist S. aureus Alcaligen. faecalis Streptococcus gordonii
--- NOTE | 2024-04-26 13:28 | P.PN ---
Subjective Progress Note Date: 04/26/24 Principal diagnosis: Reason for follow-up is right diabetic foot ulcer/osteomyelitis Patient is a 38-year-old male with a past medical history significant for diabetes mellitus hypertension history of diabetic foot infection this patient has been dealing with a wound on the lateral aspect of the right foot previously treated at [facility], now presenting with worsening swelling redness and did have abnormal x-ray suggestive of osteomyelitis. On today's evaluation that is 04/26/2023, Patient is afebrile this morning patient denies having any chest pain shortness of breath or cough, the patient is currently on room air, patient denies any abdominal pain no diarrhea no nausea no vomiting and pain to the right foot has decreased intensity. Patient did have a creatinine 0.70 Objective - Vital Signs Vital signs: Vital Signs Temp 97.8 F 04/26/24 08:33 Pulse 76 04/26/24 08:33 Resp 17 04/26/24 08:33 BP 103/66 04/26/24 08:33 Pulse Ox 95 04/26/24 08:33 FiO2 Intake & Output 04/25/24 04/26/24 04/26/24 18:59 06:59 18:59 Intake Total 250 350 Balance 250 350 Intake: Intake, IV Titration 350 Amount Vancomycin 1,500 mg In 350 Sodium Chloride 0.9% 500 ml 500 ml @ 167 mls/hr IVPB Q12H [facility] Rx#: [id number] Oral 250 Other: Voiding Method Toilet # Voids 3 2 - Exam GENERAL DESCRIPTION: Middle-age male lying in bed in no distress RESPIRATORY SYSTEM: Unlabored breathing , decreased breath sounds at bases HEART: S1 S2 regular rate and rhythm , ABDOMEN: Soft , no tenderness EXTREMITIES: Right foot lateral border wound at the base of the fifth toe with some slough tissue surrounding redness decreased no foul-smelling drainage - Labs CBC & Chem 7: 04/25/24 03:16 04/26/24 04:23 Labs: Abnormal Lab Results - Last 24 Hours (Table) 04/25/24 04/25/24 04/25/24 Range/Units 11:42 16:23 20:26 POC Glucose (mg/dL) 165 H 250 H 308 H (70-110) mg/dL 04/26/24 04/26/24 04/26/24 Range/Units 01:41 06:10 10:50 POC Glucose (mg/dL) 148 H 210 H 168 H (70-110) mg/dL Microbiology - Last 24 Hours (Table) 04/21/24 16:19 Gram Stain - Final Foot - Right Tissue Culture - Final Enterobacter cloacae Methicillin resist S. aureus Alcaligen. faecalis Streptococcus gordonii Assessment and Plan (1) Diabetic ulcer of right foot Current Visit: Yes Status: Acute Code(s): E11.621 - TYPE 2 DIABETES MELLITUS WITH FOOT ULCER; L97.519 - NON-PRS CHRONIC ULCER OTH PRT RIGHT FOOT W UNSP SEVERITY SNOMED Code(s): 248774226 (2) Foot osteomyelitis, right Current Visit: Yes Status: Acute Code(s): M86.9 - OSTEOMYELITIS, UNSPECIFIED SNOMED Code(s): 7781812741703412 (3) Allergy to multiple antibiotics Current Visit: Yes Status: Acute Code(s): Z88.1 - ALLERGY STATUS TO OTHER ANTIBIOTIC AGENTS SNOMED Code(s): 681066170 (4) Diabetic foot infection Current Visit: No Status: Acute Code(s): E11.628 - TYPE 2 DIABETES MELLITUS WITH OTHER SKIN COMPLICATIONS; L08.9 - LOCAL INFECTION OF THE SKIN AND SUBCUTANEOUS TISSUE, UNSP SNOMED Code(s): 539710620 Plan: 1patient presented to hospital with worsening wound to the right foot lateral border with worsening pain swelling redness patient did have abnormal x-ray concerning for osteomyelitis in this patient has been on a prolonged course of oral doxycycline with failure of the outpatient antibiotics and a question of MRSA versus gram-negative infection. 2local culture has been obtained which are currently growing MRSA Enterobacter and Streptococcus along with Klebsiella 3vascular surgery has evaluated the patient and is status post debridement of the wound down to the bone suggestive of osteomyelitis, bone scan suggestive of osteomyelitis 4patient with multiple antibiotic ALLERGIES that would limit the number of antibiotic safe to use 5patient did have a PICC line placement currently waiting for outpatient antibiotic arrangement, patient recently got treatment for the right foot osteomyelitis with vancomycin and did not have complete healing will benefit from daptomycin on discharge along with the Rocephin and oral Flagyl p rescription provided to the child welfare caseworker Dictation was produced using [employer] dictation software. please excuse any grammatical, word or spelling errors. Time with Patient: Less than 30
[2024-04-26 16:34] LABS: Glucose,Whole Blood 115 mg/dL (70-110)
[2024-04-26 20:40] LABS: Glucose,Whole Blood 345 mg/dL (70-110)
[2024-04-27 01:48] LABS: Glucose,Whole Blood 116 mg/dL (70-110)
[2024-04-27 06:29] LABS: Glucose,Whole Blood 195 mg/dL (70-110)
[2024-04-27 07:39] VITALS: RESP 18; TEMP 97.3
--- NOTE | 2024-04-27 11:07 | P.PN ---
Subjective Progress Note Date: 04/27/24 Principal diagnosis: Hospital course: Patient is a 38 year old male with past medical history of insulin dependent diabetes mellitus type 1, diabetic retinopathy, diabetic kidney disease, DKA, hypertension presented to the ED with right foot wound. Patient reports having a wound on lateral side right foot below the little toe. He first noticed the wound a week ago. The pain has been worsening over the past couple of days and he noticed a blister that popped and had a thick discharge. He endorses 9/10 severity of pain currently in the right foot. He mentions being hospitalised for similar diabetic ulcers in the past 3 years. He reports undergoing amputation of the right fifth toe over a year ago as the ulcer had led to osteomyelitis and was treated with lots of antibiotics. He is currently on Doxycycline at home. He sees a wound care nurse. He mentions of an extensive family history of Diabetes mellitus. Additionally, he reports having asthma as a childhe states he has been feeling depressed lately and has suicidal ideation. He does have a prior suicide attempt but does not have a plan currently. Denies fever, chills, shortness of breath, cough, chest pain, palpitations, abdominal pain, nausea, vomiting, hematuria, dysuria, hematochezia, melena, headache, slurred speech, numbness, tingling, dizziness, lightheadedness. ED documentation reviewed. In the ED patient was treated with cefepime, vancomycin, morphine, Zofran, Tums, Maalox. Vitals on admission T 97.5 F, NJ 99 bpm, RR 16, BP 105/74, O2 sat 100% on room air Foot x-ray shows wound/ulcer along the lateral foot, there is subtle focal osteolysis of the underlying fifth metatarsal head on the oblique and lateral views, findings highly suspicious for contiguous osteomyelitis Labs on admission show WBC 9.3, hemoglobin 14.4, sodium 134, potassium 4.6, creatinine 0.76, glucose 333, lactic acid 1.0, CRP 1.2 04/20/24: Patient seen and examined today at bedside. He endorses shortness of breath but is currently saturating at 99% on room air. He continues to be on Vancomycin and Cefepime. Labs today show hemoglobin 12.8. 04/21/24: Patient evalauted at bedside. Vital signs are stable. Denies shortness of breath. Labs today show Hb 13.2, Na 135. Chest x-ray shows no acute cardiopulmonary process. Lower extremity ultrasound done today. CRP 0.5, ESR 20, A1c 10 point 04/22/24: Patient examined today. Vital signs are stable. Labs today show sodium 138, potassium 3.9, creatinine 0.69. Wound culture shows few of MRSA, Enterobacter cloacae, Klebsiella pneumonia and no anaerobes isolated to date. Patient underwent debridement of the wound and deep culture from the bone followed by santyl dressing yesterday. 04/23/24: Patient seen and examined today. He complains of nausea but mentions that it is chronic and that Zofran doesn't help with it. He denies shortness of breath. Labs today show hemoglobin 12.7,Sodium 138, glucose 284. tissue culture shows gram-negative bacilli and presumptive Staph aureus. Bone scan nuclear medicine shows three-phase bone scan abnormality in the region of the fifth metatarsal head corresponding to suspicious site on radiograph, highly suggestive of osteomyelitis. 04/24. Patient seen and examined. States he feels better. PICC line to be placed tomorrow. 04/25/24: Patient evaluated at bedside. Vital signs stable. Labs today show creatinine 0.7. Tissue culture shows Enterobacter cloacae, MRSA, gram-negative bacilli, Streptococcus gordonii, Finegoldia Magna. Labs today show hemoglobin 12.9, glucose 182. 04/26/24: Patient examined today. Vital signs stable. Glucose is 195. Review of systems: Pertinent positives and negatives as discussed in HPI, a complete review of systems was performed and all other systems are negative. Vitals: Signs Reviewed Physical examination: Vital signs reviewed General: nontoxic, no distress, appears at stated age, normal BMI Derm: warm, dry, intact Head: atraumatic, normocephalic, symmetric Eyes: EOMI, anicteric sclera Mouth: no lip lesion, mucus membranes moist Cardiovascular: S1 S2 reg, no murmur Lungs: CTA bilateral, no rhonchi, no rales, no accessory muscle use Abdominal: soft, non-tender to palpation Extremities: Right foot wound bandaged, decreased sensation on b/l foot up to ankle, no cyanosis, clubbing, or pedal edema. Neuro: Alert, Oriented, Gross neurological examination did not reveal any focal deficits. Psych: well appearing, appropriate affect Assessment/Plan: Patient is a 38 year old male with past medical history of diabetes mellitus, diabetic retinopathy, diabetic nephropathy, DKA, hypertension presented to the ED with right foot wound. He has been admitted for osteomyelitis of the right fifth metatarsal and suicidal ideation. Patient to get PICC line for outpatient IV antibiotics. He had the PICC line placement done today. Patient to go home on daptomycin along with Rocephin and oral Flagyl. He is awaiting processing by the infusion company. Active: #. Osteomyelitis of the right fifth metatarsal secondary to diabetic foot ulcer #. S/p Wound debridement and deep culture of bone on 04/21/24 #. Insulin dependent Diabetes mellitus, type 1 Foot x-ray shows wound/ulcer along the lateral foot, there is subtle focal osteolysis of the underlying fifth metatarsal head on the oblique and lateral views, findings highly suspicious for contiguous osteomyelitis Received Cefepime and Vancomycin in the ED Wound culture shows few of MRSA, Enterobacter cloacae, Klebsiella pneumonia and no anaerobes isolated to date Bone scan nuclear medicine shows three-phase bone scan abnormality in the region of the fifth metatarsal head corresponding to suspicious site on radiograph, highly suggestive of osteomyelitis. Tissue culture shows Enterobacter cloacae, MRSA, gram-negative bacilli, Streptoc occus gordonii, Finegoldia Magna. Continue Vancomycin 1250 mg IVPB Q8HR and Ceftriaxone IVPB Q24HR, Metronidazole 500 mg PO TID Continue Insulin pump Continue acetaminophen 60 mg p.o. every 6 hours as needed, ibuprofen 400 mg p.o. every 6 hours as needed, tramadol 50 mg p.o. every 6 hours as needed and Dilaudid 0.5 mg IVP Q6HR PRN for pain management PICC line placed for outpatient IV antibiotics Vascular surgery is following ID following Patient to go home on daptomycin along with Rocephin and oral Flagyl #. Dyspepsia/indigestion Continue Tums 1000 mg p.o. every 4 hours as needed, Maalox 15 mL p.o. every 6 hours as needed #. Nausea and vomiting Continue metoclopramide 5 mg p.o. daily as needed, prochlorperazine 5 mg p.o. every 8 hours as needed #. Mild hyponatremia, resolved #. Suicidal ideation #. Major depressive disorder Suicide precautions Continue Mirtazapine 15 mg PO HS Psych consulted, recommend to increase Duloxetine to 90 mg PO daily and discontinue 1:1 sitter Outpatient [facility] health care at [facility] Chronic: #. Hypertension #. Neuropathy #. Migraine #. Allergic rhinitis #. Diabetic gastroparesis #. History of Asthma Continue home meds albuterol 1 puff every 4 hours as needed, baclofen 10 mg p.o. twice daily, fluticasone nasal spray, hydroxyzine 50 mg p.o. at bedtime, loratadine 10 mg p.o. daily, losartan 12.5 mg p.o. daily, metoclopramide 5 mg p.o. daily as needed, montelukast 10 mg p.o. daily prednisolone eyedrops, pregabalin 100 mg p.o. 3 times daily, sumatriptan 50 mg p.o. daily as needed, Ketorolac eye drops left eye QID DVT prophylaxis: Enoxaparin 40 mg SQ daily GI prophylaxis: Famotidine 20 mg PO BID Objective - Vital Signs Vital signs: Vital Signs Temp 97.3 F L 04/27/24 07:33 Pulse 89 04/27/24 07:33 Resp 18 04/27/24 07:33 BP 100/67 04/27/24 07:33 Pulse Ox 96 04/27/24 07:33 FiO2 Intake & Output 04/26/24 04/27/24 04/27/24 18:59 06:59 18:59 Intake Total 960 Balance 960 Intake: Oral 960 Other: # Voids 2 - Labs CBC & Chem 7: 04/25/24 03:16 04/26/24 04:23 Labs: Abnormal Lab Results - Last 24 Hours (Table) 04/26/24 04/26/24 04/26/24 Range/Units 10:50 16:32 20:38 POC Glucose (mg/dL) 168 H 115 H 345 H (70-110) mg/dL 04/27/24 04/27/24 Range/Units 01:45 06:24 POC Glucose (mg/dL) 116 H 195 H (70-110) mg/dL
[2024-04-27 11:21] LABS: Glucose,Whole Blood 216 mg/dL (70-110)
[2024-04-27 14:40] VITALS: BP 114/74; PULSE 90
[2024-04-27] MEDS: VANCOMYCIN TROUGH DUE 1 EACH MISC MISCELLANE ONE (15:37)
[2024-04-27 16:32] LABS: Glucose,Whole Blood 153 mg/dL (70-110)
--- NOTE | 2024-04-29 13:02 | P.PN ---
Subjective Progress Note Date: 04/27/24 Principal diagnosis: Reason for follow-up is right diabetic foot ulcer/osteomyelitis Patient is a 38-year-old male with a past medical history significant for diabetes mellitus hypertension history of diabetic foot infection this patient has been dealing with a wound on the lateral aspect of the right foot previously treated at [facility], now presenting with worsening swelling redness and did have abnormal x-ray suggestive of osteomyelitis. On today's evaluation that is 04/27/2024,the patient denies any fever or any chills, patient is breathing comfortably on room air, the patient denies chest pain shortness of breath and no significant cough, patient denies abdominal pain, no nausea vomiting or diarrhea. Patient denies any worsening pain to the right foot wound. Patient vancomycin trough is 14.2 Enterococcus are positive for Finegoldia he also grew Enterobacter and MRSA Objective - Vital Signs Vital signs: Vital Signs Temp 97.3 F L 04/27/24 07:33 Pulse 89 04/27/24 07:33 Resp 18 04/27/24 07:33 BP 100/67 04/27/24 07:33 Pulse Ox 96 04/27/24 07:33 FiO2 Intake & Output 04/26/24 04/27/24 04/27/24 18:59 06:59 18:59 Intake Total 960 Balance 960 Intake: Oral 960 Other: # Voids 2 - Exam GENERAL DESCRIPTION: Middle-age male lying in bed in no distress RESPIRATORY SYSTEM: Unlabored breathing , decreased breath sounds at bases HEART: S1 S2 regular rate and rhythm , ABDOMEN: Soft , no tenderness EXTREMITIES: Right foot lateral border wound at the base of the fifth toe with some slough tissue surrounding redness decreased no foul-smelling drainage - Labs CBC & Chem 7: 04/25/24 03:16 04/26/24 04:23 Labs: Abnormal Lab Results - Last 24 Hours (Table) 04/26/24 04/26/24 04/26/24 Range/Units 10:50 16:32 20:38 POC Glucose (mg/dL) 168 H 115 H 345 H (70-110) mg/dL 04/27/24 04/27/24 Range/Units 01:45 06:24 POC Glucose (mg/dL) 116 H 195 H (70-110) mg/dL Assessment and Plan (1) Diabetic ulcer of right foot Status: Acute Code(s): E11.621 - TYPE 2 DIABETES MELLITUS WITH FOOT ULCER; L97.519 - NON-PRS CHRONIC ULCER OTH PRT RIGHT FOOT W UNSP SEVERITY SNOMED Code(s): 350225937 (2) Foot osteomyelitis, right Status: Acute Code(s): M86.9 - OSTEOMYELITIS, UNSPECIFIED SNOMED Code(s): 7608324862202180 (3) Allergy to multiple antibiotics Status: Acute Code(s): Z88.1 - ALLERGY STATUS TO OTHER ANTIBIOTIC AGENTS SNOMED Code(s): 966201885 (4) Diabetic foot infection Status: Acute Code(s): E11.628 - TYPE 2 DIABETES MELLITUS WITH OTHER SKIN COMPLICATIONS; L08.9 - LOCAL INFECTION OF THE SKIN AND SUBCUTANEOUS TISSUE, UNSP SNOMED Code(s): 915665489 Plan: 1patient presented to hospital with worsening wound to the right foot lateral border with worsening pain swelling redness patient did have abnormal x-ray concerning for osteomyelitis in this patient has been on a prolonged course of oral doxycycline with failure of the outpatient antibiotics and a question of MRSA versus gram-negative infection. 2local culture has been obtained which are currently growing MRSA Enterobacter and Streptococcus along with Klebsiella 3vascular surgery has evaluated the patient and is status post debridement of the wound down to the bone suggestive of osteomyelitis, bone scan suggestive of osteomyelitis 4patient with multiple antibiotic ALLERGIES that would limit the number of antibiotic safe to use 5patient did have a PICC line placement currently waiting for outpatient antibiotic arrangement, patient recently got treatment for the right foot osteomyelitis with vancomycin and did not have complete healing, currently waiting for daptomycin Rocephin and Flagyl combination on discharge and close outpatient follow-up Dictation was produced using [employer] dictation software. please excuse any grammatical, word or spelling errors. Time with Patient: Less than 30
== END 2024-04-27 17:46 | disposition home health service (06) | DRG 314 ==
LOC: EC 12:26 → UNDOADMOB 18:44 → 4SSUR 18:44 → UNDOADMOB 18:47 → 4SSUR 18:47 → OBSVTOIN 04-19 09:42 → INTOOBSV 04-19 09:42 → 1SOBS 04-19 17:09 → 4SSUR 04-19 17:09 → 1SOBS 04-22 17:31 → 4SSUR 04-22 17:31 → UNDODISIN 04-27 17:46
PROVIDERS: ADMIT Internal Medicine; ATTEND Internal Medicine
PROC: 0QBN0ZZ Excision of Right Metatarsal, Open Approach (ICD-10-PCS; principal; 2024-04-21)
DX: E10.69 Type 1 diabetes mellitus with other specified complication (principal); E10.21 Type 1 diabetes mellitus with diabetic nephropathy; E10.319 Type 1 diabetes mellitus with unspecified diabetic retinopathy without macular edema; E10.43 Type 1 diabetes mellitus with diabetic autonomic (poly)neuropathy; E10.621 Type 1 diabetes mellitus with foot ulcer; E10.622 Type 1 diabetes mellitus with other skin ulcer; R45.851 Suicidal ideations; E10.628 Type 1 diabetes mellitus with other skin complications; M86.9 Osteomyelitis, unspecified; E87.1 Hypo-osmolality and hyponatremia; F41.9 Anxiety disorder, unspecified; F33.1 Major depressive disorder, recurrent, moderate; G43.909 Migraine, unspecified, not intractable, without status migrainosus; F40.10 Social phobia, unspecified; J30.9 Allergic rhinitis, unspecified; I10 Essential (primary) hypertension; B95.62 Methicillin resistant Staphylococcus aureus infection as the cause of diseases classified elsewhere; B96.1 Klebsiella pneumoniae [K. pneumoniae] as the cause of diseases classified elsewhere; Z59.00 Homelessness unspecified; K31.84 Gastroparesis; L08.9 Local infection of the skin and subcutaneous tissue, unspecified; Z96.41 Presence of insulin pump (external) (internal); L97.519 Non-pressure chronic ulcer of other part of right foot with unspecified severity; Z56.0 Unemployment, unspecified; Z79.4 Long term (current) use of insulin; Z79.899 Other long term (current) drug therapy; Z88.1 Allergy status to other antibiotic agents; Z91.51 Personal history of suicidal behavior; Z87.891 Personal history of nicotine dependence; Z86.14 Personal history of Methicillin resistant Staphylococcus aureus infection
CPT/HCPCS: 36415; 36573; 71045; 78315; 80048; 80053; 80202; 82075; 82565; 83036; 83605; 85025; 85027; 85610; 85652; 86140; 87070; 87075; 87077; 87186; 87205; 93922; 93923; 96365; 96366; 96367; 96372; 96375; 99285

== ENCOUNTER 2024-06-05 00:05 | Inpatient (IN) | payer OTHER ==
--- NOTE | 2024-06-05 00:31 | ED ---
Extremity Problem HPI - General Chief complaint: Skin/Abscess/Foreign Body Stated complaint: Toe issues Time Seen by Provider: 06/05/24 00:24 Source: patient, RN notes reviewed, old records reviewed Mode of arrival: ambulatory Limitations: no limitations - History of Present Illness Initial comments: This is a 38-year-old male to the ER for evaluation patient today for evaluation regards to severe right foot pain right foot redness increasing redness up the leg and concern for worsening infection despite this significant current current outpatient antibiotics and wound care MD Complaint: extremity pain, extremity swelling -: week(s) Location: right, toe Radiation: none Severity scale (1-10): 7 Quality: sharp Consistency: constant Improves with: nothing Worsens with: nothing Associated Symptoms: denies other symptoms - Related Data Home Medications Medication Instructions Recorded Confirmed Loratadine [Claritin] 10 mg PO DAILY 03/17/18 06/05/24 Albuterol Sulfate [Ventolin HFA] 1 puff INHALATION RT-Q4H PRN 07/25/21 06/05/24 Montelukast [Singulair] 10 mg PO DAILY 07/25/21 06/05/24 Ibuprofen [Motrin] 800 mg PO TID PRN 06/19/22 06/05/24 Insulin Aspart (For Pump) [NovoLOG 0.01 unit SQ-PUMP CONTINUOUS 06/19/22 06/05/24 (For Pump)] Famotidine [Pepcid] 40 mg PO HS 10/03/22 06/05/24 Pantoprazole [Protonix] 40 mg PO BID 11/23/22 06/05/24 Baclofen [Lioresal] 10 mg PO BID PRN 04/18/24 06/05/24 Fluticasone Nasal [place] [Flonase 1 spr EA NOSTRIL DAILY 04/18/24 06/05/24 Nasal [place]] Gabapentin [Neurontin] 400 mg PO TID 04/18/24 06/05/24 Ketorolac 0.5% Ophth Soln [Acular 1 drop LEFT EYE QID 04/18/24 06/05/24 0.5%] Levalbuterol Tartrate 2 puff INHALATION RT-Q4H PRN 04/18/24 06/05/24 [Levalbuterol Tartrate 45 MCG Hfa] Losartan [Cozaar] 12.5 mg PO DAILY 04/18/24 06/05/24 Pregabalin [Lyrica] 100 mg PO TID 04/18/24 06/05/24 SUMAtriptan succinate [Imitrex] 50 mg PO DAILY PRN 04/18/24 06/05/24 hydrOXYzine HCL [Atarax] 25 mg PO BID PRN 04/18/24 06/05/24 hydrOXYzine HCL [Atarax] 50 mg PO HS 04/18/24 06/05/24 prednisoLONE ACETATE 1% OPHTH 1 drop LEFT EYE QID 04/18/24 06/05/24 [Pred Forte 1%] DULoxetine HCL [Cymbalta] 20 mg PO DAILY 06/05/24 06/05/24 DULoxetine HCL [Cymbalta] 30 mg PO DAILY 06/05/24 06/05/24 Mirtazapine [Remeron] 30 mg PO HS 06/05/24 06/05/24 Previous Rx's Medication Instructions Recorded metroNIDAZOLE [Flagyl] 500 mg PO TID #90 tab 04/25/24 Metoclopramide [Reglan] 5 mg PO DAILY PRN 14 Days #14 tab 04/27/24 Prochlorperazine [Compazine] 5 mg PO Q8HR PRN 14 Days #42 tab 04/27/24 Collagenase [Santyl Ointment] 1 applic TOPICAL DAILY each 06/13/24 Ertapenem [INVanz] 1 gm IVPB Q24H #30 each 06/13/24 Prochlorperazine [Compazine] 5 mg PO Q8HR PRN #30 tab 06/13/24 Allergies Allergy/AdvReac Type Severity Reaction Status Date / Time Penicillins Allergy Unknown Verified 06/05/24 12:40 Childhood sulfamethoxazole Allergy Rash/Hives Verified 06/05/24 12:40 [From Bactrim] trimethoprim [From Bactrim] Allergy Rash/Hives Verified 06/05/24 12:40 Review of Systems ROS Statement: Those systems with pertinent positive or pertinent negative responses have been documented in the HPI. ROS Other: All systems not noted in ROS Statement are negative. Past Medical History Past Medical History: Diabetes Mellitus, Hypertension, Renal Disease Additional Past Medical History / Comment(s): Pt had recent upper respiratory infection and was on antibiotics/steroids for this, IDDM type I, past DKA about 1.5 yrs ago, neuropathy bilateral legs and runs up L side of body/L arm, hand and L side of face, L eye diabetic retinopathy, diabetic nephropathy-elevated ur ine protein, benign nasal polyp, bone dx, fangoliamagna History of Any Multi-Drug Resistant Organisms: MRSA Date of last positivie culture/infection: 04/19/24 MDRO Source:: rt foot Past Surgical History: Tonsillectomy Additional Past Surgical History / Comment(s): Closed reduction nasal bone fracture with fixation septoplasty/open reduction L malary zygomatic arch fracture. lymph node removal, September 2022 - left thigh Past Anesthesia/Blood Transfusion Reactions: No Reported Reaction Past Psychological History: Anxiety, Bipolar, Depression Smoking Status: Former smoker Past Alcohol Use History: None Reported Past Drug Use History: Marijuana - Past Family History Father Family Medical History: No Reported History Additional Family Medical History / Comment(s): Father is healthy Mother Family Medical History: Diabetes Mellitus Additional Family Medical History / Comment(s): Gastric ulcer, one leg shorter, neuropathy involving arms. General Exam Limitations: no limitations General appearance: alert, in no apparent distress Head exam: Present: atraumatic, normocephalic, normal inspection Eye exam: Present: normal appearance, PERRL, EOMI. Absent: scleral icterus, conjunctival injection, periorbital swelling ENT exam: Present: normal exam, mucous membranes moist Neck exam: Present: normal inspection. Absent: tenderness, meningismus, lymphadenopathy Respiratory exam: Present: normal lung sounds bilaterally. Absent: respiratory distress, wheezes, rales, rhonchi, stridor Cardiovascular Exam: Present: regular rate, normal rhythm, normal heart sounds. Absent: systolic murmur, diastolic murmur, rubs, gallop, clicks GI/Abdominal exam: Present: soft, normal bowel sounds. Absent: distended, tenderness, guarding, rebound, rigid Extremities exam: Present: normal inspection, full ROM, normal capillary refill. Absent: tenderness, pedal edema, joint swelling, calf tenderness Back exam: Present: normal inspection Neurological exam: Present: alert, oriented X3, CN II-XII intact Psychiatric exam: Present: normal affect, normal mood Skin exam: Present: warm, dry, intact, normal color. Absent: rash Course Vital Signs 02/16/25 02/16/25 00:09 01:53 Temperature 99.3 F Pulse Rate 104 H 91 Respiratory 20 16 Rate Blood Pressure 128/86 108/69 O2 Sat by Pulse 97 96 Oximetry - Reevaluation(s) Reevaluation #1: 06/05/24 00:38 Medical records reviewed Reevaluation #2: 06/05/24 00:38 Patient symptoms unchanged pain improved Reevaluation #3: 06/05/24 00:38 Patient informed of results and questions answered Reevaluation #4: Was pt. sent in by a medical professional or institution (, JAMAL, OPTICAL INSTRUMENT INSPECTOR, urgent care, hospital, or skilled nursing...) When possible be specific @ -no Did you speak to anyone other than the patient for history (EMS, parent, family, police, friend...)? What history was obtained from this source @ -no Did you review nursing and triage notes (agree or disagree)? Why? @ -agree Are old charts reviewed (outside hosp., previous admission, EMS record, old EKG, old radiological studies, urgent care reports/EKG's, skilled nursing records)? Report findings @ -yes Differential Diagnosis (chest pain, altered mental status, abdominal pain women, abdominal pain men, vaginal bleeding, weakness, fever, dyspnea, syncope, headache, dizziness, GI bleed, back pain, seizure, CVA, palpatations, mental health, musculoskeletal)? @ -prior EKG interpreted by me (3pts min.). @ -yes X-rays interpreted by me (1pt min.). @ -yes concern for osteomyelitis CT interpreted by me (1pt min.). @ -no U/S interpreted by me (1pt. min.). @ -no What testing was considered but not performed or refused? (CT, X-rays, U/S, labs)? Why? @ -none What meds were considered but not given or refused? Why? @ -none Did you discuss the management of the patient with other professionals (professionals i.e. JAMAL Gómez, OPTICAL INSTRUMENT INSPECTOR, lab, RT, psych nurse, health care social worker, irrigation system operator, teacher, facilities officer, manager of case management)? Give summary @ -no Was smoking cessation discussed for >3mins.? @ -no Was critical care preformed (if so, how long)? @ -no Were there social determinants of health that impacted care today? How? (Homelessness, low income, unemployed, alcoholism, drug addiction, transportation, low edu. Level, literacy, decrease access to med. care, correction, rehab)? @ -none Was there de-escalation of care discussed even if they declined (Discuss DNR or withdrawal of care, Hospice)? DNR status @ -no What co-morbidities impacted this encounter? (DM, HTN, Smoking, COPD, CAD, Cancer, CVA, ARF, Chemo, Hep., AIDS, mental health diagnosis, sleep apnea, morbid obesity)? @ -none Was patient admitted / discharged? Hospital course, mention meds given and route, prescriptions, significant lab abnormalities, going to OR and other pertinent info. @ - 38 male for worsening right foot pain diabetic foot infection osteomyelitis Admitted Undiagnosed new problem with uncertain prognosis? @ -no Drug Therapy requiring intensive monitoring for toxicity (Heparin, Nitro, Insulin, Cardizem)? @ -no Were any procedures done? @ -no Diagnosis/symptom? @ -osteomyelitis Acute, or Chronic, or Acute on Chronic? @ -Acute Uncomplicated (without systemic symptoms) or Complicated (systemic symptoms)? @ -Complicated Side effects of treatment? @ -no Exacerbation, Progression, or Severe Exacerbation? @ -exacerbation Poses a threat to life or bodily function? How? (Chest pain, [place], [place], pneumonia, PE, COPD, DKA, ARF, appy, cholecystitis, CVA, Diverticulitis, Homicidal, Suicidal, threat to staff... and all critical care pts) @ -yes yes severe infection - Consultations Consultation #1: Spoke with [facility] who agrees to admit this patient Medical Decision Making - Medical Decision Making 38 male for worsening right foot pain diabetic foot infection osteomyelitis - Lab Data Result diagrams: 06/11/24 06:03 06/11/24 06:03 - EKG Data -: EKG Interpreted by Me (EKG is sinus 93 VT 141 QRS 101 QTc 383) - Radiology Data Radiology results: report reviewed (X-ray foot concern for osteomyelitis, foot displacement), image reviewed Disposition Clinical Impression: Foot osteomyelitis, right, Diabetic foot infection, Diabetic ulcer of right foot Dis[facility] Condition: Fair Time of Disposition: 00:40
[2024-06-05] MEDS ORDERED: NALOXONE 0.4 MG/ML 1 ML VIAL IV PRN (00:35)
[2024-06-05] MEDS ORDERED: MORPHINE SULFATE 4 MG/ML SYRINGE IV PRN (00:35)
[2024-06-05] MEDS: SODIUM CHLORIDE 0.9% 1,000 ML IV STA (00:43)
[2024-06-05] MEDS: ONDANSETRON 4 MG/2 ML VIAL IVP STA (00:47)
[2024-06-05] MEDS: MORPHINE SULFATE 4 MG/ML SYRINGE IV STA (00:51)
[2024-06-05] MEDS: SODIUM CHLORIDE 0.9% 1,000 ML IV SCH (00:51)
[2024-06-05] MEDS: LEVOFLOXACIN 750MG-D5W PMX 750 MG in DEXTROSE/WATER 1 150ML.BAG IVPB STA (00:58)
[2024-06-05] MEDS: LEVOFLOXACIN 750MG-D5W PMX 750 MG in DEXTROSE/WATER 1 150ML.BAG IVPB ONE (00:59)
[2024-06-05 01:05] LABS: Basophils # (A) 0.1 k/uL (0-0.2); Basophils % (A) 1 %; Eosinophils # (A) 0.6 k/uL (0-0.7); Eosinophils % (A) 6 %; HCT 38.3 % (39.0-53.0); HGB 12.8 gm/dL (13.0-17.5); Lymphocytes # (A) 1.8 k/uL (1.0-4.8); Lymphocytes % (A) 18 %; MCH 31.6 pg (25.0-35.0); MCHC 33.5 g/dL (31.0-37.0); MCV 94.5 fL (80.0-100.0); Mean Platelet Volume 8.7; Monocytes # (A) 0.6 k/uL (0-1.0); Monocytes % (A) 6 %; Neutrophils # (A) 6.8 k/uL (1.3-7.7); Neutrophils % (A) 68 %; Platelet Count 286 k/uL (150-450); RBC 4.05 m/uL (4.30-5.90); RDW 12.8 % (11.5-15.5)
[2024-06-05 01:13] LABS: ALT 21 U/L (4-49); AST 19 U/L (17-59); African American GFR (CKD) >90 (>60 ml/min/1.73 sqM); Alkaline Phosphatase 83 U/L (38-126); Anion Gap 8 mmol/L; Blood Urea Nitrogen 16 mg/dL (9-20); Calcium 9.3 mg/dL (8.4-10.2); Carbon Dioxide 27 mmol/L (22-30); Chloride 101 mmol/L (98-107); Glucose 138 mg/dL (74-99); Non-African American GFR(CKD) >90 (>60 ml/min/1.73 sqM); Phosphorus 3.7 mg/dL (2.5-4.5); Potassium 4.1 mmol/L (3.5-5.1); Sodium 136 mmol/L (137-145); Total Bilirubin 0.6 mg/dL (0.2-1.3); Total Protein 7.2 g/dL (6.3-8.2)
[2024-06-05 01:23] LABS: NT-Pro-B-Type Natriuretic Pept 87 pg/mL
[2024-06-05 01:41] LABS: Partial Thromboplastin Time 25.3 sec (22.0-30.0); Prothrombin Time 11.2 sec (10.0-12.5)
[2024-06-05] MEDS: CLINDAMYCIN 600 MG in DEXTROSE 5% IN WATER 50 ML IVPB ONE (03:01)
--- NOTE | 2024-06-05 03:41 | XR ---
EXAM: XR Right Foot Complete, 3 Views CLINICAL HISTORY: Pain TECHNIQUE: Frontal, lateral and oblique views of the right foot. COMPARISON: 04/18/2024. FINDINGS: Bones/joints: Medial displacement of the fifth phalanx at the metatarsal-phalangeal joint. No definite fracture. Bone mineralization within normal limits. Soft tissues: Unremarkable. No radiopaque foreign body. IMPRESSION: Medial displacement of the fifth phalanx at the metatarsal-phalangeal joint.
[2024-06-05] MEDS: HYDROmorphone 1 MG/ML 1 ML SYRINGE IVP PRN (03:46)
[2024-06-05 05:51] LABS: Glucose,Whole Blood 147 mg/dL (70-110)
[2024-06-05] MEDS: CLINDAMYCIN 600 MG in DEXTROSE 5% IN WATER 50 ML IVPB SCH (08:30)
[2024-06-05] MEDS: ONDANSETRON 4 MG/2 ML VIAL IVP PRN (08:34)
--- NOTE | 2024-06-05 11:00 | P.GSCN ---
History of Present Illness History of present illness: 38-year-old gentleman known to me for patient has history of wound on the lateral aspect of the right foot we have been treating with IV antibiotic patient was under care of infectious disease for for 6 weeks she did not with antibiotic on Thursday patient came with the some discomfort and pain in the right foot x-ray shows there is displacement of the fifth phalanx from the metatarsophalangeal joint. Also had a bone scan about 6 weeks ago and was found to have a osteo and patient was treated by infectious disease for 6 weeks with IV antibiotic. Medical history history of diabetes hypertension On examination his vital signs stable neck supple no bruit appreciated Chest is clear good in both lung. Second sound present Abdomen soft nontender Vascular femorals are 2+ PT 1+ patient has a wound on the right foot lateral aspect we have been treating with Santyl cream there is some discoloration of the skin involving the fifth fifth toe lateral aspect which could be due to the pressure seeing Plan is consult for infectious disease #2 we will continue with Santyl cream we may be repeating the MRI of the right foot rule out osteo he may need further wound debridement possible ray amputation of the fifth toe with wound VAC continue with Santyl cream and IV antibiotic Past Medical History Past Medical History: Diabetes Mellitus, Hypertension, Renal Disease Additional Past Medical History / Comment(s): IDDM type I, past DKA about 8months ago, neuropathy bilateral legs and runs up L side of body/L arm, hand and L side of face, L eye diabetic retinopathy, diabetic nephropathy-elevated urine protein, benign nasal polyp, bone dx, fangoliamagna, right foot debridement x3, left pinky toe amputation. osteomylitis right foot with IV abx tx ,picc line left upper arm. gastroparesis. insulin pump dependent. History of Any Multi-Drug Resistant Organisms: MRSA Year Discovered:: 04/19/24 MDRO Source:: rt foot Past Surgical History: Tonsillectomy Additional Past Surgical History / Comment(s): Closed reduction nasal bone fracture with fixation septoplasty/open reduction L malary zygomatic arch fracture. lymph node removal, September 2022 - left thigh, left eye cataract removed. Past Anesthesia/Blood Transfusion Reactions: No Reported Reaction Past Psychological History: Anxiety, Bipolar, Depression Additional Psychological History / Comment(s): Pt resides with his girlfriend, currently unemployed. severe social anxiety, able to drive. Smoking Status: Former smoker Past Alcohol Use History: None Reported Additional Past Alcohol Use History / Comment(s): Pt started smoking in 2003, quit 2007 and a pack will last 3 days. Past Drug Use History: Marijuana Additional Drug Use History / Comment(s): daily THC use - Past Family History Father Family Medical History: No Reported History Additional Family Medical History / Comment(s): Father is healthy Mother Family Medical History: Diabetes Mellitus Additional Family Medical History / Comment(s): Gastric ulcer, one leg shorter, neuropathy involving arms. Medications and Allergies Home Medications Medication Instructions Recorded Confirmed Type Loratadine [Claritin] 10 mg PO DAILY 03/17/18 04/18/24 History Albuterol Sulfate [Ventolin HFA] 1 puff INHALATION RT-Q4H PRN 07/25/21 04/18/24 History Montelukast [Singulair] 10 mg PO DAILY 07/25/21 04/18/24 History Ibuprofen [Motrin] 800 mg PO TID PRN 06/19/22 04/18/24 History Insulin Aspart (For Pump) [NovoLOG 0.01 unit SQ-PUMP CONTINUOUS 06/19/22 04/18/24 History (For Pump)] Famotidine [Pepcid] 40 mg PO BID 10/03/22 04/18/24 History Pantoprazole [Protonix] 40 mg PO BID 11/23/22 04/18/24 History Baclofen [Lioresal] 10 mg PO BID 04/18/24 04/18/24 History Fluticasone Nasal [place] [Flonase 1 spr EA NOSTRIL DAILY 04/18/24 04/18/24 History Nasal [place]] Gabapentin [Neurontin] 400 mg PO TID 04/18/24 04/18/24 History Ketorolac 0.5% Ophth Soln [Acular 1 drop LEFT EYE QID 04/18/24 04/18/24 History 0.5%] Levalbuterol Tartrate 2 puff INHALATION RT-Q4H PRN 04/18/24 04/18/24 History [Levalbuterol Tartrate 45 MCG Hfa] Losartan [Cozaar] 12.5 mg PO DAILY 04/18/24 04/18/24 History Mirtazapine [Remeron] 15 mg PO HS 04/18/24 04/18/24 History Pregabalin [Lyrica] 100 mg PO TID 04/18/24 04/18/24 History SUMAtriptan succinate [Imitrex] 50 mg PO DAILY PRN 04/18/24 04/18/24 History hydrOXYzine HCL [Atarax] 25 mg PO BID PRN 04/18/24 04/18/24 History hydrOXYzine HCL [Atarax] 50 mg PO HS 04/18/24 04/18/24 History prednisoLONE ACETATE 1% OPHTH 1 drop LEFT EYE QID 04/18/24 04/18/24 History [Pred Forte 1%] metroNIDAZOLE [Flagyl] 500 mg PO TID #90 tab 04/25/24 Rx DULoxetine HCL [Cymbalta] 90 mg PO DAILY 14 Days #14 cap 04/27/24 Rx Metoclopramide [Reglan] 5 mg PO DAILY PRN 14 Days #14 tab 04/27/24 Rx Prochlorperazine [Compazine] 5 mg PO Q8HR PRN 14 Days #42 tab 04/27/24 Rx Allergies Allergy/AdvReac Type Severity Reaction Status Date / Time Penicillins Allergy Unknown Verified 06/05/24 00:13 Childhood sulfamethoxazole Allergy Rash/Hives Verified 06/05/24 00:13 [From Bactrim] trimethoprim [From Bactrim] Allergy Rash/Hives Verified 06/05/24 00:13 Surgical - Exam Vital Signs Temp Pulse Resp BP Pulse Ox 99.3 F 104 H 20 128/86 97 06/05/24 00:09 06/05/24 00:09 06/05/24 00:09 06/05/24 00:09 06/05/24 00:09 Results - Labs 06/05/24 00:51 06/05/24 00:51 Abnormal Lab Results - Last 24 Hours (Table) 06/05/24 06/05/24 06/05/24 Range/Units 00:51 00:51 05:50 RBC 4.05 L (4.30-5.90) m/uL Hgb 12.8 L (13.0-17.5) gm/dL Hct 38.3 L (39.0-53.0) % Sodium 136 L (137-145) mmol/L Glucose 138 H (74-99) mg/dL POC Glucose (mg/dL) 147 H (70-110) mg/dL Diabetes panel 06/05/24 Range/Units 00:51 Sodium 136 L (137-145) mmol/L Potassium 4.1 (3.5-5.1) mmol/L Chloride 101 (98-107) mmol/L Carbon Dioxide 27 (22-30) mmol/L BUN 16 (9-20) mg/dL Creatinine 0.80 (0.66-1.25) mg/dL Glucose 138 H (74-99) mg/dL Calcium 9.3 (8.4-10.2) mg/dL AST 19 (17-59) U/L ALT 21 (4-49) U/L Alkaline Phosphatase 83 (38-126) U/L Total Protein 7.2 (6.3-8.2) g/dL Albumin 4.0 (3.5-5.0) g/dL Calcium panel 06/05/24 Range/Units 00:51 Calcium 9.3 (8.4-10.2) mg/dL Phosphorus 3.7 (2.5-4.5) mg/dL Albumin 4.0 (3.5-5.0) g/dL Pituitary panel 06/05/24 Range/Units 00:51 Sodium 136 L (137-145) mmol/L Potassium 4.1 (3.5-5.1) mmol/L Chloride 101 (98-107) mmol/L Carbon Dioxide 27 (22-30) mmol/L BUN 16 (9-20) mg/dL Creatinine 0.80 (0.66-1.25) mg/dL Glucose 138 H (74-99) mg/dL Calcium 9.3 (8.4-10.2) mg/dL Adrenal panel 06/05/24 Range/Units 00:51 Sodium 136 L (137-145) mmol/L Potassium 4.1 (3.5-5.1) mmol/L Chloride 101 (98-107) mmol/L Carbon Dioxide 27 (22-30) mmol/L BUN 16 (9-20) mg/dL Creatinine 0.80 (0.66-1.25) mg/dL Glucose 138 H (74-99) mg/dL Calcium 9.3 (8.4-10.2) mg/dL Total Bilirubin 0.6 (0.2-1.3) mg/dL AST 19 (17-59) U/L ALT 21 (4-49) U/L Alkaline Phosphatase 83 (38-126) U/L Total Protein 7.2 (6.3-8.2) g/dL Albumin 4.0 (3.5-5.0) g/dL
--- NOTE | 2024-06-05 12:36 | P.HPIM ---
History of Present Illness Patient is a 38 year old male with past medical history of insulin dependent diabetes mellitus type 1, diabetic retinopathy, diabetic kidney disease, DKA, hypertension presented to the ED with right foot wound.. Patient recently discharged from the hospital for similar problem. He was discharged home on Daptomycin, Rocephin and oral flagyl. Presents for similar complaint of his left foot pinky toe with new discoloration. Patient denies any other complaint He denies smoking alcohol or illicit drugs Vitals reviewed and stable Labs including CBC, INR, BMP, LFT and troponin were unremarkable. Foot x-ray: Left metatarsal showing medial displacement of the fifth phalanx at the metatarsal phalangeal joint EKG showing sinus rhythm at [address]-T changes Currently he is on clindamycin and levofloxacin and normal saline at 75 mL/h Past Medical History Past Medical History: Diabetes Mellitus, Hypertension, Renal Disease Additional Past Medical History / Comment(s): IDDM type I, past DKA about 8months ago, neuropathy bilateral legs and runs up L side of body/L arm, hand and L side of face, L eye diabetic retinopathy, diabetic nephropathy-elevated urine protein, benign nasal polyp, bone dx, fangoliamagna, right foot debridement x3, left pinky toe amputation. osteomylitis right foot with IV abx tx ,picc line left upper arm. gastroparesis. insulin pump dependent. History of Any Multi-Drug Resistant Organisms: MRSA Date of last positivie culture/infection: 04/19/24 MDRO Source:: rt foot Past Surgical History: Tonsillectomy Additional Past Surgical History / Comment(s): Closed reduction nasal bone fracture with fixation septoplasty/open reduction L malary zygomatic arch fracture. lymph node removal, September 2022 - left thigh, left eye cataract removed. Past Anesthesia/Blood Transfusion Reactions: No Reported Reaction Past Psychological History: Anxiety, Bipolar, Depression Additional Psychological History / Comment(s): Pt resides with his girlfriend, currently unemployed. severe social anxiety, able to drive. Smoking Status: Former smoker Past Alcohol Use History: None Reported Additional Past Alcohol Use History / Comment(s): Pt started smoking in 2003, quit 2007 and a pack will last 3 days. Past Drug Use History: Marijuana Additional Drug Use History / Comment(s): daily THC use - Past Family History Father Family Medical History: No Reported History Additional Family Medical History / Comment(s): Father is healthy Mother Family Medical History: Diabetes Mellitus Additional Family Medical History / Comment(s): Gastric ulcer, one leg shorter, neuropathy involving arms. Medications and Allergies Home Medications Medication Instructions Recorded Confirmed Type Loratadine [Claritin] 10 mg PO DAILY 03/17/18 04/18/24 History Albuterol Sulfate [Ventolin HFA] 1 puff INHALATION RT-Q4H PRN 07/25/21 04/18/24 History Montelukast [Singulair] 10 mg PO DAILY 07/25/21 04/18/24 History Ibuprofen [Motrin] 800 mg PO TID PRN 06/19/22 04/18/24 History Insulin Aspart (For Pump) [NovoLOG 0.01 unit SQ-PUMP CONTINUOUS 06/19/22 1 History (For Pump)] Famotidine [Pepcid] 40 mg PO BID 10/03/22 04/18/24 History Pantoprazole [Protonix] 40 mg PO BID 11/23/22 04/18/24 History Baclofen [Lioresal] 10 mg PO BID 04/18/24 04/18/24 History Fluticasone Nasal [place] [Flonase 1 spr EA NOSTRIL DAILY 04/18/24 04/18/24 Hist ory Nasal [place]] Gabapentin [Neurontin] 400 mg PO TID 04/18/24 04/18/24 History Ketorolac 0.5% Ophth Soln [Acular 1 drop LEFT EYE QID 04/18/24 04/18/24 History 0.5%] Levalbuterol Tartrate 2 puff INHALATION RT-Q4H PRN 04/18/24 04/18/24 History [Levalbuterol Tartrate 45 MCG Hfa] Losartan [Cozaar] 12.5 mg PO DAILY 04/18/24 04/18/24 History Mirtazapine [Remeron] 15 mg PO HS 04/18/24 04/18/24 History Pregabalin [Lyrica] 100 mg PO TID 04/18/24 04/18/24 History SUMAtriptan succinate [Imitrex] 50 mg PO DAILY PRN 04/18/24 04/18/24 History hydrOXYzine HCL [Atarax] 25 mg PO BID PRN 04/18/24 04/18/24 History hydrOXYzine HCL [Atarax] 50 mg PO HS 04/18/24 04/18/24 History prednisoLONE ACETATE 1% OPHTH 1 drop LEFT EYE QID 04/18/24 04/18/24 History [Pred Forte 1%] metroNIDAZOLE [Flagyl] 500 mg PO TID #90 tab 04/25/24 Rx DULoxetine HCL [Cymbalta] 90 mg PO DAILY 14 Days #14 cap 04/27/24 Rx Metoclopramide [Reglan] 5 mg PO DAILY PRN 14 Days #14 tab 04/27/24 Rx Prochlorperazine [Compazine] 5 mg PO Q8HR PRN 14 Days #42 tab 04/27/24 Rx Allergies Allergy/AdvReac Type Severity Reaction Status Date / Time Penicillins Allergy Unknown Verified 06/05/24 00:13 Childhood sulfamethoxazole Allergy Rash/Hives Verified 06/05/24 00:13 [From Bactrim] trimethoprim [From Bactrim] Allergy Rash/Hives Verified 06/05/24 00:13 Physical Exam Vitals: Vital Signs Temp Pulse Pulse Resp BP BP Pulse Ox 06/05/24 07:00 98.4 F 81 15 105/61 97 06/05/24 03:20 98.6 F 94 18 117/74 97 06/05/24 01:53 91 16 108/69 96 06/05/24 00:09 99.3 F 104 H 20 128/86 97 Intake and Output 06/04/24 06/05/24 06/05/24 22:59 06:59 14:59 Output Total 50 Balance -50 Output: Emesis 50 Other: # Voids 1 Weight 75.75 kg Results CBC & Chem 7: 06/05/24 00:51 06/05/24 00:51 Labs: Abnormal Lab Results - Last 24 Hours (Table) 06/05/24 06/05/24 06/05/24 Range/Units 00:51 00:51 05:50 RBC 4.05 L (4.30-5.90) m/uL Hgb 12.8 L (13.0-17.5) gm/dL Hct 38.3 L (39.0-53.0) % Sodium 136 L (137-145) mmol/L Glucose 138 H (74-99) mg/dL POC Glucose (mg/dL) 147 H (70-110) mg/dL Thrombosis Risk Factor Assmnt - Choose All That Apply Any of the Below Risk Factors Present?: No Other Risk Factors: No Other congenital or acquired thrombophilia - If yes, enter type in comment: No Thrombosis Risk Factor Assessment Level: Very Low Risk Assessment and Plan Assessment: Osteomyelitis of the right fifth metatarsal secondary to diabetic foot ulcer, s/p I&D on 04/23. Recently discharged on broad-spectrum antibiotics Daptomycin, Rocephin and oral flagyl. Insulin-dependent diabetes mellitus, type I Major depressive disorder Hypertension Neuropathy Migraine Allergic rhinitis Diabetic gastroparesis History of asthma Plan: Continue with antibiotic, currently with clindamycin and Levaquin Infectious disease consult Vascular surgery consult Follow-up culture results Labs and medication were reviewed.. Continue same treatment. Continue with symptomatic treatment. Resume home medication. Monitor labs and vitals. DVT and GI prophylaxis. Further recommendations as per clinical course of the patient DVT prophylaxis: Subcutaneous heparin GI Prophylaxis: Pepcid Prognosis is guarded
[2024-06-05 12:47] LABS: Glucose,Whole Blood 180 mg/dL (70-110)
[2024-06-05] MEDS ORDERED: LEVALBUTEROL TARTRATE INHALATION PRN (15:59)
[2024-06-05] MEDS ORDERED: VANCOMYCIN IV PER PHARMACY 1 EACH MISC MISCELLANE PRN (16:26)
[2024-06-05] MEDS ORDERED: VANCOMYCIN 1,250 MG in SODIUM CHLORIDE 0.9% 250 ML IVPB STA (16:35)
[2024-06-05 17:08] LABS: Glucose,Whole Blood 186 mg/dL (70-110)
[2024-06-05] MEDS: CEFEPIME 2 GM in SODIUM CHLORIDE 0.9% 100 ML IVPB SCH (17:08)
[2024-06-05] MEDS: GABAPENTIN 400 MG CAP PO SCH (17:10)
[2024-06-05] MEDS: PROCHLORPERAZINE 5 MG TAB PO PRN (17:37)
[2024-06-05] MEDS: prednisoLONE ACETATE 1% OPHTH DROPS 5 ML BTL LEFT EYE SCH (17:45)
[2024-06-05] MEDS: KETOROLAC 0.5% OPHTH DROPS 5 ML BTL LEFT EYE SCH (17:45)
[2024-06-05 20:18] LABS: Glucose,Whole Blood 220 mg/dL (70-110)
[2024-06-05] MEDS: VANCOMYCIN 1,500 MG in SODIUM CHLORIDE 0.9% 500 ML 500 ML IVPB STA (21:21)
[2024-06-05] MEDS: FAMOTIDINE 20 MG/2 ML VIAL IV SCH (21:21)
[2024-06-05] MEDS: MIRTAZAPINE 15 MG TAB PO SCH (21:21)
[2024-06-05] MEDS: HEPARIN SODIUM,PORCINE 5,000 UNIT/ML 1 ML VIAL SQ SCH (21:22)
[2024-06-05] MEDS: metroNIDAZOLE 500 MG TAB PO SCH (21:22)
[2024-06-06] MEDS ORDERED: LEVOFLOXACIN 750MG-D5W PMX 750 MG in DEXTROSE/WATER 1 150ML.BAG IVPB SCH (01:00)
[2024-06-06 05:51] LABS: Glucose,Whole Blood 206 mg/dL (70-110)
--- NOTE | 2024-06-06 08:47 | P.CONS ---
History of Present Illness - Reason for Consult Consult date: 06/05/24 Osteomyelitis Requesting physician: Tristin Luu - Chief Complaint Right foot worsening wound x days - History of Present Illness Patient is a 38-year-old male with past medical history significant for hypertension type 2 diabetes mellitus patient has been dealing with a wound on the right foot lateral border at the base of the fifth toe with underlying osteomyelitis and culture positive for MRSA Enterobacter Alcaligenes faecalis and Finegoldia magna with the patient has been on outpatient daptomycin Rocephin and oral Flagyl patient mention he developed distal on the lateral aspect of his right foot that he punctured with a needle did have some drainage of fluid subsequently noticed to have discoloration of his right foot lateral border for the patient presented to the hospital patient was also complaining of pain describing it to be sharp throbbing almost 12 out of 10 without any radiation with associated swelling discoloration and some drainage patient denies high- grade fever on presentation to the hospital the patient did have low-grade fever of 99.3 F patient was not tachycardic hypotensive or hypoxic patient did have white count of 10,000 creatinine 0.80 liver enzymes are normal did have x-ray of the right foot with decreased medial displacement of the right fifth phalanx at the metatarsophalangeal joint patient was admitted to hospital started on clindamycin and Levaquin infectious disease was consulted for further management of antibiotic therapy Review of Systems Positive point and negatives has been mentioned in the HPI, complete review of systems was performed and all other systems are negative Past Medical History Past Medical History: Diabetes Mellitus, Hypertension, Renal Disease Additional Past Medical History / Comment(s): IDDM type I, past DKA about 8months ago, neuropathy bilateral legs and runs up L side of body/L arm, hand and L side of face, L eye diabetic retinopathy, diabetic nephropathy-elevated urine protein, benign nasal polyp, bone dx, fangoliamagna, right foot debridement x3, left pinky toe amputation. osteomylitis right foot with IV abx tx ,picc line left upper arm. gastroparesis. insulin pump dependent. History of Any Multi-Drug Resistant Organisms: MRSA Year Discovered:: 04/19/24 MDRO Source:: rt foot Past Surgical History: Tonsillectomy Additional Past Surgical History / Comment(s): Closed reduction nasal bone fracture with fixation septoplasty/open reduction L malary zygomatic arch fracture. lymph node removal, September 2022 - left thigh, left eye cataract removed. Past Anesthesia/Blood Transfusion Reactions: No Reported Reaction Past Psychological History: Anxiety, Bipolar, Depression Additional Psychological History / Comment(s): Pt resides with his girlfriend, currently unemployed. severe social anxiety, able to drive. Smoking Status: Former smoker Past Alcohol Use History: None Reported Additional Past Alcohol Use History / Comment(s): Pt started smoking in 2003, quit 2007 and a pack will last 3 days. Past Drug Use History: Marijuana Additional Drug Use History / Comment(s): daily THC use - Past Family History Father Family Medical History: No Reported History Additional Family Medical History / Comment(s): Father is healthy Mother Family Medical History: Diabetes Mellitus Additional Family Medical History / Comment(s): Gastric ulcer, one leg shorter, neuropathy involving arms. Medications and Allergies Home Medications Medication Instructions Recorded Confirmed Type Loratadine [Claritin] 10 mg PO DAILY 03/17/18 06/05/24 History Albuterol Sulfate [Ventolin HFA] 1 puff INHALATION RT-Q4H PRN 07/25/21 06/05/24 History Montelukast [Singulair] 10 mg PO DAILY 07/25/21 06/05/24 History Ibuprofen [Motrin] 800 mg PO TID PRN 06/19/22 06/05/24 History Insulin Aspart (For Pump) [NovoLOG 0.01 unit SQ-PUMP CONTINUOUS 06/19/22 06/05/24 History (For Pump)] Famotidine [Pepcid] 40 mg PO HS 10/03/22 06/05/24 History Pantoprazole [Protonix] 40 mg PO BID 11/23/22 06/05/24 History Baclofen [Lioresal] 10 mg PO BID PRN 04/18/24 06/05/24 History Fluticasone Nasal [place] [Flonase 1 spr EA NOSTRIL DAILY 04/18/24 06/05/24 History Nasal [place]] Gabapentin [Neurontin] 400 mg PO TID 04/18/24 06/05/24 History Ketorolac 0.5% Ophth Soln [Acular 1 drop LEFT EYE QID 04/18/24 06/05/24 History 0.5%] Levalbuterol Tartrate 2 puff INHALATION RT-Q4H PRN 04/18/24 06/05/24 History [Levalbuterol Tartrate 45 MCG Hfa] Losartan [Cozaar] 12.5 mg PO DAILY 04/18/24 06/05/24 History Pregabalin [Lyrica] 100 mg PO TID 04/18/24 06/05/24 History SUMAtriptan succinate [Imitrex] 50 mg PO DAILY PRN 04/18/24 06/05/24 History hydrOXYzine HCL [Atarax] 25 mg PO BID PRN 04/18/24 06/05/24 History hydrOXYzine HCL [Atarax] 50 mg PO HS 04/18/24 06/05/24 History prednisoLONE ACETATE 1% OPHTH 1 drop LEFT EYE QID 04/18/24 06/05/24 History [Pred Forte 1%] metroNIDAZOLE [Flagyl] 500 mg PO TID #90 tab 04/25/24 06/05/24 Rx Metoclopramide [Reglan] 5 mg PO DAILY PRN 14 Days #14 tab 04/27/24 06/05/24 Rx Prochlorperazine [Compazine] 5 mg PO Q8HR PRN 14 Days #42 tab 04/27/24 06/05/24 Rx DULoxetine HCL [Cymbalta] 20 mg PO DAILY 06/05/24 06/05/24 History DULoxetine HCL [Cymbalta] 30 mg PO DAILY 06/05/24 06/05/24 History Mirtazapine [Remeron] 30 mg PO HS 06/05/24 06/05/24 History Allergies Allergy/AdvReac Type Severity Reaction Status Date / Time Penicillins Allergy Unknown Verified 06/05/24 12:40 Childhood sulfamethoxazole Allergy Rash/Hives Verified 06/05/24 12:40 [From Bactrim] trimethoprim [From Bactrim] Allergy Rash/Hives Verified 06/05/24 12:40 Physical Exam Vitals: Vital Signs Temp Pulse Pulse Resp BP BP Pulse Ox 06/05/24 07:00 98.4 F 81 15 105/61 97 06/05/24 03:20 98.6 F 94 18 117/74 97 06/05/24 01:53 91 16 108/69 96 06/05/24 00:09 99.3 F 104 H 20 128/86 97 Intake and Output 06/04/24 06/05/24 06/05/24 22:59 06:59 14:59 Intake Total 236 Output Total 50 Balance -50 236 Intake: Oral 236 Output: Emesis 50 Other: # Voids 1 Weight 75.75 kg GENERAL DESCRIPTION: Middle-aged male lying in bed, no distress. No tachypnea or accessory muscle of respiration use. HEENT: Shows Pallor , no scleral icterus. Oral mucous membrane is dry. No pharyngeal erythema or thrush NECK: Trachea central, no thyromegaly. LUNGS: Unlabored breathing. Clear to auscultation anteriorly. No wheeze or crackle. HEART: S1, S2, regular rate and rhythm. No loud murmur ABDOMEN: Soft, no tenderness , guarding or rigidity, no organomegaly EXTREMITIES: Right foot lateral border wound at the base of the fifth toe with some maceration and discoloration deep culture were obtained SKIN: No rash, no masses palpable. NEUROLOGICAL: The patient is awake, alert, oriented x3, mood and affect normal. Results CBC & Chem 7: 06/05/24 00:51 06/05/24 00:51 Labs: Abnormal Lab Results - Last 24 Hours (Table) 06/05/24 06/05/24 06/05/24 Range/Units 00:51 00:51 05:50 RBC 4.05 L (4.30-5.90) m/uL Hgb 12.8 L (13.0-17.5) gm/dL Hct 38.3 L (39.0-53.0) % Sodium 136 L (137-145) mmol/L Glucose 138 H (74-99) mg/dL POC Glucose (mg/dL) 147 H (70-110) mg/dL 06/05/24 Range/Units 12:46 RBC (4.30-5.90) m/uL Hgb (13.0-17.5) gm/dL Hct (39.0-53.0) % Sodium (137-145) mmol/L Glucose (74-99) mg/dL POC Glucose (mg/dL) 180 H (70-110) mg/dL Assessment and Plan (1) Diabetic foot infection Current Visit: Yes Status: Acute Code(s): E11.628 - TYPE 2 DIABETES MELLITUS WITH OTHER SKIN COMPLICATIONS; L08.9 - LOCAL INFECTION OF THE SKIN AND SUBCUTANEOUS TISSUE, UNSP SNOMED Code(s): 579656745 (2) Diabetic ulcer of right foot Current Visit: Yes Status: Acute Code(s): E11.621 - TYPE 2 DIABETES MELLITUS WITH FOOT ULCER; L97.519 - NON-PRS CHRONIC ULCER OTH PRT RIGHT FOOT W UNSP SEVERITY SNOMED Code(s): 172521166 (3) Foot osteomyelitis, right Current Visit: Yes Status: Acute Code(s): M86.9 - OSTEOMYELITIS, UNSPECIFIED SNOMED Code(s): 5225770306069221 (4) Allergy to multiple antibiotics Current Visit: No Status: Acute Code(s): Z88.1 - ALLERGY STATUS TO OTHER ANTIBIOTIC AGENTS SNOMED Code(s): 534148185 Plan: 1patient presented to hospital with worsening wound to the right foot lateral border in this patient who was diagnosed with an osteomyelitis beginning of April he with a culture positive for multiple pathogen and was receiving outpatient IV antibiotic therapy as well as Flagyl patient did have a noncompliance as he did not follow-up in the office last week now presenting to the hospital with worsening wound started after he did develop a blister which he tried to puncture himself patient more likely has had osteomyelitis failing m edical therapy. 2we will repeat an MRI of the right foot to make no evidence of any abscess that may need to be drained. 3deep culture have been obtained and will guide further antibiotic therapy. 4discontinue clindamycin and Levaquin. 5patient was started on vancomycin pharmacy to dose cefepime and Flagyl while waiting for the workup to be completed. We will follow on clinical condition and cultures to further adjust medication if needed Thank you for this consultation we will follow the patient along with you Dictation was produced using [employer] dictation software. please excuse any gramm atical, word or spelling errors. Time with Patient: Greater than 30
[2024-06-06] MEDS: FLUTICASONE NASAL 50MCG/SPRAY 16GM BTL EA NOSTRIL SCH (08:58)
[2024-06-06] MEDS: DULoxetine HCL 20 MG CAPSULE.DR PO SCH (08:59)
[2024-06-06] MEDS: LORATADINE 10 MG TAB PO SCH (08:59)
[2024-06-06] MEDS: DULoxetine HCL 30 MG CAPSULE.DR PO SCH (08:59)
[2024-06-06] MEDS: MONTELUKAST 10 MG TAB PO SCH (08:59)
[2024-06-06] MEDS: COLLAGENASE 250 UNIT/GM OINTMENT 30 GM TUBE TOPICAL SCH (08:59)
[2024-06-06] MEDS: VANCOMYCIN 1,500 MG in SODIUM CHLORIDE 0.9% 500 ML 500 ML IVPB SCH (08:59)
[2024-06-06 09:03] LABS: Basophils # (A) 0.07 X 10*3/uL (0.00-0.10); Basophils % (A) 1.4 %; Eosinophils # (A) 0.37 X 10*3/uL (0.04-0.35); Eosinophils % (A) 7.3 %; HCT 35.5 % (39.6-50.0); Lymphocytes % (A) 23.8 %; MCH 31.3 pg (27.0-32.0); MCHC 33.8 g/dL (32.0-37.0); MCV 92.4 FL (80.0-97.0); Mean Platelet Volume 11.4 FL (9.5-12.2); Monocytes % (A) 11.9 %; NRBC Per 100 WBC 0 X 10*3/uL (0.00-0.01); Neutrophils % (A) 55.4 %; Platelet Count 293 X 10*3/uL (140-440); RBC 3.84 X 10*6/uL (4.40-5.60); RDW 12.8 % (11.5-14.5); WBC 5.05 X 10*3/uL (4.50-10.00)
[2024-06-06 09:45] LABS: ALT 19 U/L (10-49); AST 20 U/L (14-35); Albumin 3.6 g/dL (3.8-4.9); Albumin/Globulin Ratio 1.33 Ratio (1.60-3.17); Alkaline Phosphatase 83 U/L (41-126); BUN/Creat Ratio 13.75 Ratio (12.00-20.00); Calcium 8.8 mg/dL (8.7-10.3); Carbon Dioxide 27.6 mmol/L (21.6-31.8); Chloride 102 mmol/L (96-109); Globulin 2.7 g/dL (1.6-3.3); Glucose 194 mg/dL (70-110); Magnesium 1.8 mg/dL (1.5-2.4); Phosphorus 3.5 mg/dL (2.4-5.1); Potassium 4.6 mmol/L (3.5-5.5); Sodium 138 mmol/L (135-145); Total Bilirubin 0.4 mg/dL (0.3-1.2); Total Protein 6.3 g/dL (6.2-8.2)
[2024-06-06] MEDS ORDERED: INSULIN ASPART (NovoLOG) 100 UNIT/ML VIAL SQ PRN (10:33)
[2024-06-06] MEDS ORDERED: INSULIN PUMP BASAL RATES 1 EACH MISC MISCELLANE PRN (10:33)
[2024-06-06 10:44] LABS: Erythrocyte Sedimentation Rate 52 mm/Hr (0-15)
--- NOTE | 2024-06-06 13:00 | MR ---
EXAMINATION TYPE: MR foot RT wo/w con DATE OF EXAM: 06/06/2024 12:54 PM COMPARISON: 06/05/2024 04/22/2024 CLINICAL INDICATION: Male, 38 years old with history of Right diabetic foot ulcer/osteomyelitis/absce ss; PHH, Rt foot, 5th metatarsal phalangeal joint wound TECHNIQUE: Multiplanar, multisequence MR imaging of the right forefoot was performed administration of IV gadolinium contrast. MR contrast: IV Contrast: 7 mL Gadobutrol FINDINGS: Abnormal low T1 bone marrow signal involving the fifth metatarsal and proximal phalanx of t he fifth digit immediately adjacent to a soft tissue wound present. Wound measuring at least 11 mm an d very close proximity to the bone. There is posterior subluxation of the fifth digit at the metatars ophalangeal joint. Diffuse streaky edema throughout the plantar surface musculature compatible with s equela of diabetes. No evidence of fracture. There is postcontrast enhancement demonstrates enhanceme nt on the site of palpable infection. No organizing fluid collections. IMPRESSION: 1. Soft tissue wound near the fifth digit metatarsophalangeal joint with evidence of osteomyelitis i nvolving the fifth metatarsal and proximal phalanx of the fifth digit. No organizing fluid collection s identified. 2. Dorsal subluxation/dislocation of the fifth digit metatarsophalangeal joint. [facility], , 06/06/2024 12:58 PM
[2024-06-06 13:25] LABS: Glucose,Whole Blood 291 mg/dL (70-110)
[2024-06-06] MEDS: INSULIN PUMP MEAL BOLUS 1 UNIT MISC MISCELLANE SCH (13:25)
--- NOTE | 2024-06-06 14:45 | P.PN ---
Progress Note - Text 8-year-old or gentleman came to the emergency room involving the left aspect of the foot and also involving the fifth toe with drainage and redness and tenderness we did the MRI of the foot shows osteomyelitis of the fifth metatarsal phalangeal joint and also fifth proximal digit patient IV antibiotic we been treating Santyl cream and also noted some drainage patient IV antibiotic most likely this gentleman will need amputation of the fifth toe along fifth metatarsal bone in the meantime we will continue with antibiotic and Santyl cream
[2024-06-06] MEDS ORDERED: SUMAtriptan succinate 50 MG TAB PO PRN (15:26)
[2024-06-06] MEDS ORDERED: hydrOXYzine HCL 25 MG TAB PO PRN (15:26)
[2024-06-06 17:12] LABS: Glucose,Whole Blood 232 mg/dL (70-110)
[2024-06-06] MEDS: PREGABALIN 100 MG CAP PO SCH (17:27)
--- NOTE | 2024-06-06 17:27 | P.PN ---
Subjective Progress Note Date: 06/06/24 Principal diagnosis: Reason for follow-up is right diabetic foot infection/osteomyelitis Patient is a 38-year-old male with past medical history significant for hypertension type 2 diabetes mellitus patient has been dealing with a wound on the right foot lateral border at the base of the fifth toe with underlying osteomyelitis for the patient was getting outpatient IV and by therapy presenting the hospital with worsening swelling and discoloration to the right foot lateral border after he did develop a blister with the patient try to drain itself. On today's evaluation that is 06/06/2024, patient has been afebrile, patient is breathing comfortably and is currently on room air, patient denies having any significant cough no chest pain, patient denies nausea vomiting or diarrhea and no abdominal pain still complaining of significant pain to the right foot lat eral border wound area. Patient white count is 5.05 sed rate is 52 creatinine 0.8 cultures currently pending Objective - Vital Signs Vital signs: Vital Signs Temp 97.7 F 06/06/24 07:25 Pulse 86 06/06/24 07:25 Resp 16 06/06/24 07:25 BP 100/62 06/06/24 07:25 Pulse Ox 97 06/06/24 07:25 FiO2 Intake & Output 06/05/24 06/06/24 06/06/24 18:59 06:59 18:59 Intake Total 236 60 Balance 236 60 Intake: Oral 236 60 Other: Voiding Method Toilet # Voids 1 2 - Exam GENERAL DESCRIPTION: Middle-age male lying in bed in no distress RESPIRATORY SYSTEM: Unlabored breathing , decreased breath sounds at bases HEART: S1 S2 regular rate and rhythm , ABDOMEN: Soft , no tenderness EXTREMITIES: Right foot is currently dressed - Labs CBC & Chem 7: 06/06/24 05:28 06/06/24 05:28 Labs: Abnormal Lab Results - Last 24 Hours (Table) 06/05/24 06/05/24 06/05/24 Range/Units 12:46 17:07 20:16 RBC (4.40-5.60) X 10*6/uL Hgb (13.0-17.0) g/dL Hct (39.6-50.0) % Eosinophils # (0.04-0.35) X 10*3/uL ESR (0-15) mm/Hr Glucose (70-110) mg/dL POC Glucose (mg/dL) 180 H 186 H 220 H (70-110) mg/dL C-Reactive Protein (0.00-0.80) mg/dL Albumin (3.8-4.9) g/dL Albumin/Globulin Ratio (1.60-3.17) Ratio 06/06/24 06/06/24 06/06/24 Range/Units 05:28 05:28 05:48 RBC 3.84 L (4.40-5.60) X 10*6/uL Hgb 12.0 L (13.0-17.0) g/dL Hct 35.5 L (39.6-50.0) % Eosinophils # 0.37 H (0.04-0.35) X 10*3/uL ESR 52 H (0-15) mm/Hr Glucose 194 H (70-110) mg/dL POC Glucose (mg/dL) 206 H (70-110) mg/dL C-Reactive Protein 3.60 H (0.00-0.80) mg/dL Albumin 3.6 L (3.8-4.9) g/dL Albumin/Globulin Ratio 1.33 L (1.60-3.17) Ratio Assessment and Plan (1) Diabetic foot infection Current Visit: Yes Status: Acute Code(s): E11.628 - TYPE 2 DIABETES MELLITUS WITH OTHER SKIN COMPLICATIONS; L08.9 - LOCAL INFECTION OF THE SKIN AND SUBCUTANEOUS TISSUE, UNSP SNOMED Code(s): 672876414 (2) Diabetic ulcer of right foot Current Visit: Yes Status: Acute Code(s): E11.621 - TYPE 2 DIABETES MELLITUS WITH FOOT ULCER; L97.519 - NON-PRS CHRONIC ULCER OTH PRT RIGHT FOOT W UNSP SEVERITY SNOMED Code(s): 120749746 (3) Foot osteomyelitis, right Current Visit: Yes Status: Acute Code(s): M86.9 - OSTEOMYELITIS, UNSPECIFIED SNOMED Code(s): 6126176325393013 (4) Allergy to multiple antibiotics Current Visit: No Status: Acute Code(s): Z88.1 - ALLERGY STATUS TO OTHER ANTIBIOTIC AGENTS SNOMED Code(s): 157251188 Plan: 1patient presented to hospital with worsening wound to the right foot lateral border in this patient who was diagnosed with an osteomyelitis beginning of April he with a culture positive for multiple pathogen and was receiving outpatient IV antibiotic therapy as well as Flagyl patient did have a noncompliance as he did not follow-up in the office last week now presenting to the hospital with worsening wound started after he did develop a blister which he tried to puncture himself patient more likely has had osteomyelitis failing medical therapy. 2currently waiting for n MRI of the right foot to make no evidence of any abscess that may need to be drained. 3deep culture have been obtained which are currently pending 4patient to continue with vancomycin pharmacy to dose cefepime and Flagyl while waiting for the workup to be completed. Care discussed with the vascular surgeon which is possibly planning for right fifth toe amputation Dictation was produced using [employer] dictation software. please excuse any gram matical, word or spelling errors. Time with Patient: Less than 30
[2024-06-06] MEDS: ALBUTEROL HFA INHALER INHALATION PRN (19:19)
--- NOTE | 2024-06-06 19:39 | P.PN ---
Subjective Patient is a 38 year old male with past medical history of insulin dependent diabetes mellitus type 1, diabetic retinopathy, diabetic kidney disease, DKA, hypertension presented to the ED with right foot wound.. Patient recently discharged from the hospital for similar problem. He was discharged home on Daptomycin, Rocephin and oral flagyl. Presents for similar complaint of his left foot pinky toe with new discoloration. Patient denies any other complaint He denies smoking alcohol or illicit drugs Vitals reviewed and stable Labs including CBC, INR, BMP, LFT and troponin were unremarkable. Foot x-ray: Left metatarsal showing medial displacement of the fifth phalanx at the metatarsal phalangeal joint EKG showing sinus rhythm at [address]-T changes Currently he is on clindamycin and levofloxacin and normal saline at 75 mL/h 06/06 Patient is still treated for his infection in the left diabetic left foot wound with surrounding cellulitis. Patient had MRI of the foot today, I reviewed the result by myself, patient has evidence of osteomyelitis of the fifth metatarsal bone as well as over the fifth first proximal phalanx. Also patient has extensive surrounding cellulitis and soft tissue swelling. Pain controlled. Antibiotics was adjusted to IV vancomycin, IV cefepime and p.o. Flagyl He is on normal saline 75 mL/h Vascular surgery team are planning for debridement of his infected tissue. Review of systems CONSTITUTIONAL: No fever, no malaise, no fatigue. HEENT: No recent visual problems or hearing problems. Denied any sore throat. CARDIOVASCULAR: No orthopnea, PND, no palpitations, no syncope. PULMONARY: No shortness of breath, no cough, no hemoptysis. GASTROINTESTINAL: No diarrhea, no nausea, no vomiting, no abdominal pain. Normoactive bowel sounds. NEUROLOGICAL: No headaches, no weakness, no numbness. Active Medications Generic Name Dose Route Start Last Admin Trade Name Freq PRN Reason Stop Dose Admin Albuterol Sulfate 1 puff 06/05/24 15:59 06/06/24 19:19 Albuterol Hfa Inhaler INHALATION 1 puff RT-Q4H PRN Administration Shortness Of Breath Baclofen 10 mg 06/05/24 15:59 Baclofen 10 Mg Tab PO BID PRN Muscle Spasm Collagenase 1 applic 06/06/24 09:00 06/06/24 08:59 Collagenase 250 Unit/Gm Ointment 30 Gm Tube TOPICAL 1 applic DAILY BRI Administration Protocol Duloxetine HCl 20 mg 06/06/24 09:00 06/06/24 08:59 Duloxetine Hcl 20 Mg Capsule. PO 20 mg DAILY BRI Administration Duloxetine HCl 30 mg 06/06/24 09:00 06/06/24 08:59 Duloxetine Hcl 30 Mg Capsule. PO 30 mg DAILY BRI Administration Famotidine 20 mg 06/06/24 21:00 Famotidine 20 Mg Tab PO BID BRI Fluticasone Propionate 1 spray 06/06/24 09:00 06/06/24 08:58 Fluticasone Nasal 50mcg/Buras 16gm Btl EA NOSTRIL Not Given DAILY BRI Gabapentin 400 mg 06/05/24 16:00 06/06/24 17:27 Gabapentin 400 Mg Cap PO Not Given TID BRI Heparin Sodium (Porcine) 5,000 unit 06/05/24 21:00 06/06/24 08:58 Heparin Sodium,Porcine 5,000 Unit/Ml 1 Ml Vial SQ 5,000 unit Q12HR BRI Administration Hydromorphone HCl 1 mg 06/05/24 03:05 06/06/24 17:29 Hydromorphone 1 Mg/Ml 1 Ml Syringe IVP 1 mg Q3HR PRN Administration Pain Hydroxyzine HCl 25 mg 06/06/24 15:26 Hydroxyzine Hcl 25 Mg Tab PO BID PRN Anxiety Sodium Chloride 1,000 mls @ 75 mls/hr 06/05/24 00:45 06/06/24 17:27 Saline 0.9% IV 75 mls/hr .[id number] BRI Administration Cefepime HCl 2 gm/ Sodium 100 mls @ 25 mls/hr 06/05/24 16:30 06/06/24 17:24 Chloride IVPB 25 mls/hr Q8HR BRI Administration Protocol Vancomycin HCl 1,500 mg/ 500 mls @ 167 mls/hr 06/06/24 09:00 06/06/24 08:59 Sodium Chloride IVPB 167 mls/hr Q12H BRI Administration Insulin Aspart 0 unit 06/06/24 10:33 Insulin Aspart (Novolog) 100 Unit/Ml Vial SQ DAILY PRN Insulin Pump Replacement Ketorolac Tromethamine 1 drops 06/05/24 18:00 06/06/24 17:28 Ketorolac 0.5% Ophth Drops 5 Ml Btl LEFT EYE Not Given QID BRI Loratadine 10 mg 06/06/24 09:00 06/06/24 08:59 Loratadine 10 Mg Tab PO 10 mg DAILY BRI Administration Metronidazole 500 mg 06/05/24 22:00 06/06/24 17:26 Metronidazole 500 Mg Tab PO 500 mg TID BRI Administration Protocol Mirtazapine 30 mg 06/05/24 21:00 06/05/24 21:21 Mirtazapine 15 Mg Tab PO 30 mg HS BRI Administration Miscellaneous Information 1 each 06/05/24 16:26 Vancomycin Iv Per Pharmacy 1 Each Misc MISCELLANE DIRECTED PRN Per Protocol Protocol Miscellaneous Information 1 each 06/06/24 10:33 Insulin Pump Basal Rates 1 Each Misc MISCELLANE Q6HR PRN Blood Sugar - High Protocol Miscellaneous Information 0 unit 06/06/24 12:30 06/06/24 17:28 Insulin Pump Meal Bolus 1 Unit Misc MISCELLANE Not Given ACHS [facility] Protocol Miscellaneous Information 0 unit 06/06/24 10:33 Insulin Pump Correction Bolus 1 Unit Misc MISCELLANE ACHS PRN Blood Sugar - High Protocol Montelukast Sodium 10 mg 06/06/24 09:00 06/06/24 08:59 Montelukast 10 Mg Tab PO 10 mg DAILY [facility] Administration Naloxone HCl 0.2 mg 06/05/24 00:35 Naloxone 0.4 Mg/Ml 1 Ml Vial IV Q2M PRN Opioid Reversal Non-Formulary Medication 2 puff 06/05/24 15:59 Levalbuterol Tartrate [Levalbuterol Tartrate 45 Mcg Hfa] INHALATION RT-Q4H PRN Shortness Of Breath Ondansetron HCl 4 mg 06/05/24 00:35 06/05/24 08:34 Ondansetron 4 Mg/2 Ml Vial IVP 4 mg Q8HR PRN Administration Nausea And Vomiting Prednisolone Acetate 1 drops 06/05/24 18:00 06/06/24 17:28 Prednisolone Acetate 1% Ophth Drops 5 Ml Btl LEFT EYE Not Given QID BRI Pregabalin 100 mg 06/06/24 16:00 06/06/24 17:27 Pregabalin 100 Mg Cap PO 100 mg TID [facility] Administration Prochlorperazine Maleate 5 mg 06/05/24 15:59 06/06/24 09:32 Prochlorperazine 5 Mg Tab PO 5 mg Q8HR PRN Administration Nausea And Vomiting Sumatriptan Succinate 50 mg 06/06/24 15:26 Sumatriptan Succinate 50 Mg Tab PO DAILY PRN Migraine Headache Objective - Vital Signs Vital signs: Vital Signs Temp 97.7 F 06/06/24 07:25 Pulse 86 06/06/24 07:25 Resp 16 06/06/24 07:25 BP 100/62 06/06/24 07:25 Pulse Ox 97 06/06/24 07:25 FiO2 Intake & Output 06/05/24 06/06/24 06/06/24 18:59 06:59 18:59 Intake Total 236 60 Balance 236 60 Intake: Oral 236 60 Other: Voiding Method Toilet # Voids 1 2 - Exam GENERAL: The patient is alert and oriented x3, not in any acute distress. Well developed, well nourished. HEENT: Pupils are round and equally reacting to light. EOMI. No scleral icterus. No conjunctival pallor. Normocephalic, atraumatic. No pharyngeal erythema. No thyromegaly. CARDIOVASCULAR: S1 and S2 present. No murmurs, rubs, or gallops. PULMONARY: Chest is clear to auscultation, no wheezing , no crackles. ABDOMEN: Soft, nontender, nondistended, normoactive bowel sounds. No palpable organomegaly. MUSCULOSKELETAL: No joint swelling or deformity. -EXTREMITIES: No cyanosis, clubbing, or pedal edema. Extensive swelling and pinkish discoloration of the lateral left foot and the fifth toe. There is a deep ulcer of the distal sole NEUROLOGICAL: Gross neurological examination did not reveal any focal deficits. SKIN: No rashes. no petechiae. - Labs CBC & Chem 7: 06/06/24 05:28 06/06/24 05:28 Labs: Abnormal Lab Results - Last 24 Hours (Table) 06/05/24 06/05/24 06/06/24 Range/Units 17:07 20:16 05:28 RBC 3.84 L (4.40-5.60) X 10*6/uL Hgb 12.0 L (13.0-17.0) g/dL Hct 35.5 L (39.6-50.0) % Eosinophils # 0.37 H (0.04-0.35) X 10*3/uL ESR 52 H (0-15) mm/Hr Glucose (70-110) mg/dL POC Glucose (mg/dL) 186 H 220 H (70-110) mg/dL C-Reactive Protein (0.00-0.80) mg/dL Albumin (3.8-4.9) g/dL Albumin/Globulin Ratio (1.60-3.17) Ratio 06/06/24 06/06/24 06/06/24 Range/Units 05:28 05:48 13:23 RBC (4.40-5.60) X 10*6/uL Hgb (13.0-17.0) g/dL Hct (39.6-50.0) % Eosinophils # (0.04-0.35) X 10*3/uL ESR (0-15) mm/Hr Glucose 194 H (70-110) mg/dL POC Glucose (mg/dL) 206 H 291 H (70-110) mg/dL C-Reactive Protein 3.60 H (0.00-0.80) mg/dL Albumin 3.6 L (3.8-4.9) g/dL Albumin/Globulin Ratio 1.33 L (1.60-3.17) Ratio Microbiology - Last 24 Hours (Table) 06/05/24 00:51 Blood Culture - Preliminary Blood Assessment and Plan Assessment: Osteomyelitis of the right fifth metatarsal secondary to diabetic foot ulcer, s/p I&D on 04/23. . Insulin-dependent diabetes mellitus, type I Major depressive disorder Hypertension Neuropathy Migraine Allergic rhinitis Diabetic gastroparesis History of asthma Plan: Continue with antibiotic, currently with IV vancomycin, p.o. Flagyl and IV cefepime Continue with normal saline 75 mL/h Infectious disease consult Vascular surgery consult and planning for wound debridement down the road Follow-up culture results Labs and medication were reviewed.. Continue same treatment. Continue with symptomatic treatment. Resume home medication. Monitor labs and vitals. DVT and GI prophylaxis. Further recommendations as per clinical course of the patient DVT prophylaxis: Subcutaneous heparin GI Prophylaxis: Pepcid Prognosis is guarded
[2024-06-06 20:27] LABS: Glucose,Whole Blood 156 mg/dL (70-110)
[2024-06-06] MEDS: FAMOTIDINE 20 MG TAB PO SCH (21:21)
[2024-06-07 05:44] LABS: Glucose,Whole Blood 48 mg/dL (70-110)
[2024-06-07 05:44] LABS: Glucose,Whole Blood 46 mg/dL (70-110)
[2024-06-07] MEDS: DEXTROSE 50% SYRINGE 50 ML IVP PRN (05:58)
[2024-06-07 06:24] LABS: Glucose,Whole Blood 156 mg/dL (70-110)
[2024-06-07 12:20] LABS: Glucose,Whole Blood 48 mg/dL (70-110)
--- NOTE | 2024-06-07 12:27 | P.PN ---
Subjective Patient is a 38 year old male with past medical history of insulin dependent diabetes mellitus type 1, diabetic retinopathy, diabetic kidney disease, DKA, hypertension presented to the ED with right foot wound.. Patient recently discharged from the hospital for similar problem. He was discharged home on Daptomycin, Rocephin and oral flagyl. Presents for similar complaint of his left foot pinky toe with new discoloration. Patient denies any other complaint He denies smoking alcohol or illicit drugs Vitals reviewed and stable Labs including CBC, INR, BMP, LFT and troponin were unremarkable. Foot x-ray: Left metatarsal showing medial displacement of the fifth phalanx at the metatarsal phalangeal joint EKG showing sinus rhythm at [address]-T changes Currently he is on clindamycin and levofloxacin and normal saline at 75 mL/h 06/06 Patient is still treated for his infection in the left diabetic left foot wound with surrounding cellulitis. Patient had MRI of the foot today, I reviewed the result by myself, patient has evidence of osteomyelitis of the fifth metatarsal bone as well as over the fifth first proximal phalanx. Also patient has extensive surrounding cellulitis and soft tissue swelling. Pain controlled. Antibiotics was adjusted to IV vancomycin, IV cefepime and p.o. Flagyl He is on normal saline 75 mL/h Vascular surgery team are planning for debridement of his infected tissue. 06/07 Patient denies any new symptoms today His sugar was low overnight and this afternoon. Patient was made n.p.o. because he is going for the procedure. However patient kept his insulin pump running, we asked the patient to stop his insulin pump. Also will place the patient on D5 normal saline at 75 mL/h Patient evaluated by vascular surgery team and they recommended amputation of the fifth toe along fifth metatarsal bone In the meantime patient remains on IV antibiotic cefepime, IV vancomycin and oral Flagyl pending culture results Objective - Vital Signs Vital signs: Vital Signs Temp 98.3 F 06/07/24 07:19 Pulse 86 06/07/24 07:19 Resp 16 06/07/24 07:19 BP 99/60 06/07/24 07:19 Pulse Ox 93 L 06/07/24 07:19 FiO2 Intake & Output 06/06/24 06/07/24 06/07/24 18:59 06:59 18:59 Intake Total 240 Balance 240 Intake: Oral 240 Other: # Voids 3 2 - Exam GENERAL: The patient is alert and oriented x3, not in any acute distress. Well developed, well nourished. HEENT: Pupils are round and equally reacting to light. EOMI. No scleral icterus. No conjunctival pallor. Normocephalic, atraumatic. No pharyngeal erythema. No thyromegaly. CARDIOVASCULAR: S1 and S2 present. No murmurs, rubs, or gallops. PULMONARY: Chest is clear to auscultation, no wheezing , no crackles. ABDOMEN: Soft, nontender, nondistended, normoactive bowel sounds. No palpable organomegaly. MUSCULOSKELETAL: No joint swelling or deformity. -EXTREMITIES: No cyanosis, clubbing, or pedal edema. Extensive swelling and pinkish discoloration of the lateral left foot and the fifth toe. There is a deep ulcer of the distal sole NEUROLOGICAL: Gross neurological examination did not reveal any focal deficits. SKIN: No rashes. no petechiae. - Labs CBC & Chem 7: 06/06/24 05:28 06/06/24 05:28 Labs: Abnormal Lab Results - Last 24 Hours (Table) 06/06/24 06/06/24 06/06/24 Range/Units 13:23 17:10 20:26 POC Glucose (mg/dL) 291 H 232 H 156 H (70-110) mg/dL 06/07/24 06/07/24 06/07/24 Range/Units 05:41 05:43 06:23 POC Glucose (mg/dL) 46 L* 48 L* 156 H (70-110) mg/dL 06/07/24 Range/Units 12:18 POC Glucose (mg/dL) 48 L* (70-110) mg/dL Microbiology - Last 24 Hours (Table) 06/05/24 14:47 Gram Stain - Preliminary Foot - Right Wound Culture - Preliminary Enterobacter cloacae Complex 06/05/24 00:51 Blood Culture - Preliminary Blood Assessment and Plan Assessment: Osteomyelitis of the right fifth metatarsal secondary to diabetic foot ulcer, s/p I&D on 04/23. . Insulin-dependent diabetes mellitus, type I Major depressive disorder Hypertension Neuropathy Migraine Allergic rhinitis Diabetic gastroparesis History of asthma Plan: Continue with antibiotic, currently with IV vancomycin, p.o. Flagyl and IV cefepime Change fluid to D5 normal saline 75 mL/h. Stop insulin pump while n.p.o., patient informed Monitor glucose closely Infectious disease consult Vascular surgery consult and planning for wound debridement down the road Follow-up culture results Labs and medication were reviewed.. Continue same treatment. Continue with symptomatic treatment. Resume home medication. Monitor labs and vitals. DVT and GI prophylaxis. Further recommendations as per clinical course of the patient DVT prophylaxis: Subcutaneous heparin GI Prophylaxis: Pepcid Prognosis is guarded
[2024-06-07 12:51] LABS: Glucose,Whole Blood 259 mg/dL (70-110)
[2024-06-07] MEDS: LACTATED RINGERS 1,000 ML BAG IV STA (13:54)
[2024-06-07] MEDS: IV FLUID CONTINUATION 1,000 ML IV ONE (13:56)
[2024-06-07] MEDS ORDERED: PHENYLEPHRINE 10 MG/ML VIAL ONE (13:58)
[2024-06-07] MEDS ORDERED: PROPOFOL 10 MG/ML 20 ML VIAL IV ONE (13:58)
[2024-06-07] MEDS ORDERED: LIDOCAINE 1% INJ 10MG/ML (20 ML MDV) ONE (13:58)
[2024-06-07] MEDS ORDERED: MIDAZOLAM 2 MG/2 ML VIAL ONE (13:58)
[2024-06-07] MEDS ORDERED: fentaNYL (PF) 50 MCG/ML 2 ML AMP ONE (13:58)
[2024-06-07 14:00] LABS: Glucose,Whole Blood 203 mg/dL (70-110)
[2024-06-07 15:10] LABS: Glucose,Whole Blood 183 mg/dL (70-110)
[2024-06-07 15:32] VITALS: BMI 20.8
--- NOTE | 2024-06-07 16:01 | P.PN ---
Subjective Progress Note Date: 06/07/24 Principal diagnosis: Reason for follow-up is right diabetic foot infection/osteomyelitis Patient is a 38-year-old male with past medical history significant for hypertension type 2 diabetes mellitus patient has been dealing with a wound on the right foot lateral border at the base of the fifth toe with underlying osteomyelitis for the patient was getting outpatient IV and by therapy presenting the hospital with worsening swelling and discoloration to the right foot lateral border after he did develop a blister with the patient try to drain itself. On today's evaluation that is 06/07/2024, Patient is afebrile this morning patient denies having any chest pain shortness of breath or cough, the patient is currently on room air, patient denies any abdominal pain no diarrhea no nausea no vomiting, pain to the right foot lateral border wound is currently controlled with the pain medication. No new lab has been obtained today culture currently growing Enterobacter with sensitivities pending MRI was suggestive of osteomyelitis Objective - Vital Signs Vital signs: Vital Signs Temp 98.3 F 06/07/24 07:19 Pulse 86 06/07/24 07:19 Resp 16 06/07/24 07:19 BP 99/60 06/07/24 07:19 Pulse Ox 93 L 06/07/24 07:19 FiO2 Intake & Output 06/06/24 06/07/24 06/07/24 18:59 06:59 18:59 Intake Total 240 Balance 240 Intake: Oral 240 Other: # Voids 3 2 - Exam GENERAL DESCRIPTION: Middle-age male lying in bed in no distress RESPIRATORY SYSTEM: Unlabored breathing , decreased breath sounds at bases HEART: S1 S2 regular rate and rhythm , ABDOMEN: Soft , no tenderness EXTREMITIES: Right foot is currently dressed - Labs CBC & Chem 7: 06/06/24 05:28 06/06/24 05:28 Labs: Abnormal Lab Results - Last 24 Hours (Table) 06/06/24 06/06/24 06/06/24 Range/Units 13:23 17:10 20:26 POC Glucose (mg/dL) 291 H 232 H 156 H (70-110) mg/dL 06/07/24 06/07/24 06/07/24 Range/Units 05:41 05:43 06:23 POC Glucose (mg/dL) 46 L* 48 L* 156 H (70-110) mg/dL Microbiology - Last 24 Hours (Table) 06/05/24 14:47 Gram Stain - Preliminary Foot - Right Wound Culture - Preliminary Enterobacter cloacae Complex 06/05/24 00:51 Blood Culture - Preliminary Blood Assessment and Plan (1) Diabetic foot infection Current Visit: Yes Status: Acute Code(s): E11.628 - TYPE 2 DIABETES MELLITUS WITH OTHER SKIN COMPLICATIONS; L08.9 - LOCAL INFECTION OF THE SKIN AND SUBCUTANEOUS TISSUE, UNSP SNOMED Code(s): 831628667 (2) Diabetic ulcer of right foot Current Visit: Yes Status: Acute Code(s): E11.621 - TYPE 2 DIABETES MELLITUS WITH FOOT ULCER; L97.519 - NON-PRS CHRONIC ULCER OTH PRT RIGHT FOOT W UNSP SEVERITY SNOMED Code(s): 135077752 (3) Foot osteomyelitis, right Current Visit: Yes Status: Acute Code(s): M86.9 - OSTEOMYELITIS, UNSPECIFIED SNOMED Code(s): 6316137271784048 (4) Allergy to multiple antibiotics Current Visit: No Status: Acute Code(s): Z88.1 - ALLERGY STATUS TO OTHER ANTIBIOTIC AGENTS SNOMED Code(s): 627724674 Plan: 1patient presented to hospital with worsening wound to the right foot lateral border in this patient who was diagnosed with an osteomyelitis beginning of April he with a culture positive for multiple pathogen and was receiving outpatient IV antibiotic therapy as well as Flagyl patient did have a noncompliance as he did not follow-up in the office last week now presenting to the hospital with worsening wound started after he did develop a blister which he tried to puncture himself patient more likely has had osteomyelitis failing medical therapy. 2MRI of the right foot suggestive of osteomyelitis but no evidence of any abscess, vascular surgery planning for amputation and the patient seem to have agreed to wait 3deep culture currently growing Enterobacter with sensitivities pending 4patient to continue with vancomycin pharmacy to dose cefepime and Flagyl while waiting for the culture to finalize Dictation was produced using [employer] dictation software. please excuse any grammatical, word or spelling errors. Time with Patient: Less than 30
[2024-06-07] MEDS: DEXTROSE 5%-0.9% NACL 1,000 ML IV SCH (17:17)
[2024-06-07] MEDS: SODIUM CHLORIDE 0.9% 1,000 ML IV SCH (18:03)
[2024-06-07 18:15] LABS: Glucose,Whole Blood 223 mg/dL (70-110)
[2024-06-07] MEDS ORDERED: VANCOMYCIN TROUGH DUE 1 EACH MISC MISCELLANE ONE (20:00)
[2024-06-07 20:51] LABS: Glucose,Whole Blood 203 mg/dL (70-110)
[2024-06-07 20:54] LABS: African American GFR (CKD) >90 (>60 ml/min/1.73 sqM); Non-African American GFR(CKD) >90 (>60 ml/min/1.73 sqM)
[2024-06-07] MEDS: BACLOFEN 10 MG TAB PO PRN (21:08)
--- NOTE | 2024-06-07 21:41 | OP ---
OPERATIVE REPORT DATE OF SERVICE : PREOPERATIVE DIAGNOSES: Infected gangrene of the left foot 5th toe and osteomyelitis of the fifth toe at metatarsophalangeal joint. OPERATION: Ray amputation of the fifth toe at metatarsophalangeal joint. PROCEDURE IN DETAIL: This patient was brought to the operating room. Under general anesthesia, right foot was prepped and draped in usual sterile manner. This patient had a wound on the lateral aspect of the foot involving the fifth toe and with some drainage. Elliptical incision was made between the fourth and fifth toe, extended towards the dorsal aspect of the foot, deepened through skin, fat, fascia, and the tendons. Then incision was extended to the plantar aspect of the foot, deepened through skin, fat, fascia, and the tendons were divided until we reached the metatarsal bone. The ligaments were divided and metatarsal head of the metatarsal bone was removed along with the fifth toe. There were some digital vessels which were suture ligated. The specimen was sent for deep culture. Wound was copiously irrigated with hydrogen peroxide and saline. Hemostasis was controlled by electrocautery. After that, we placed a wound VAC with pressure of 125. The patient was transferred to the recovery room in satisfactory condition. MMODL / IJN: [id number] /
[2024-06-08] MEDS: VANCOMYCIN 1,500 MG in SODIUM CHLORIDE 0.9% 500 ML 500 ML IVPB SCH (00:17)
[2024-06-08 05:00] LABS: Glucose,Whole Blood 118 mg/dL (70-110)
--- NOTE | 2024-06-08 09:11 | P.PN ---
Progress Note - Text 38-year-old gentleman patient has osteomyelitis of the fifth toe and metatarsophalangeal joint patient had a ray amputation done yesterday we placed a We placed wound VAC patient is IV antibiotic wound VAC came accidentally we placed a new 1 continue with wound VAC and IV antibiotic
[2024-06-08] MEDS: MEROPENEM 1 GM in SODIUM CHLORIDE 0.9% 100 ML IVPB SCH (11:54)
--- NOTE | 2024-06-08 12:26 | P.PN ---
Subjective Progress Note Date: 06/08/24 Principal diagnosis: Reason for follow-up is right diabetic foot infection/osteomyelitis Patient is a 38-year-old male with past medical history significant for hypertension type 2 diabetes mellitus patient has been dealing with a wound on the right foot lateral border at the base of the fifth toe with underlying osteomyelitis for the patient was getting outpatient IV and by therapy presenting the hospital with worsening swelling and discoloration to the right foot lateral border after he did develop a blister with the patient try to drain itself. Patient is status post right fifth toe ray amputation and application wound VAC on 06/07/2024. On today's evaluation that is 06/08/2024,the patient denies any fever or any chills, patient is breathing comfortably on room air, the patient denies chest pain shortness of breath and no significant cough, patient denies abdominal pain, no nausea vomiting or diarrhea. Pain to the right foot is currently controlled. Patient did have a creatinine 0.67 local culture finalized with drug-resistant Enterobacter Objective - Vital Signs Vital signs: Vital Signs Temp 98.7 F 06/08/24 07:30 Pulse 92 06/08/24 07:30 Resp 14 06/08/24 08:12 BP 119/83 06/08/24 07:30 Pulse Ox 99 06/08/24 07:30 FiO2 Intake & Output 06/07/24 06/08/24 06/08/24 18:59 06:59 18:59 Intake Total 400 Output Total 5 Balance 395 Weight 75.75 kg Intake: IV 400 Output: Estimated Blood Loss 5 Other: Voiding Method Toilet Toilet Urinal # Voids 1 2 - Exam GENERAL DESCRIPTION: Middle-age male lying in bed in no distress RESPIRATORY SYSTEM: Unlabored breathing , decreased breath sounds at bases HEART: S1 S2 regular rate and rhythm , ABDOMEN: Soft , no tenderness EXTREMITIES: Right foot wound is currently covered with a wound VAC - Labs CBC & Chem 7: 06/06/24 05:28 06/07/24 19:52 Labs: Abnormal Lab Results - Last 24 Hours (Table) 06/07/24 06/07/24 06/07/24 Range/Units 12:18 12:50 13:58 POC Glucose (mg/dL) 48 L* 259 H 203 H (70-110) mg/dL 06/07/24 06/07/24 06/07/24 Range/Units 15:08 18:14 20:49 POC Glucose (mg/dL) 183 H 223 H 203 H (70-110) mg/dL 06/08/24 Range/Units 04:59 POC Glucose (mg/dL) 118 H (70-110) mg/dL Microbiology - Last 24 Hours (Table) 06/05/24 14:47 Anaerobic Culture - Preliminary Foot - Right 06/05/24 14:47 Gram Stain - Final Foot - Right Wound Culture - Final Enterobacter cloacae Complex 06/05/24 00:51 Blood Culture - Preliminary Blood Assessment and Plan (1) Diabetic foot infection Current Visit: Yes Status: Acute Code(s): E11.628 - TYPE 2 DIABETES MELLITUS WITH OTHER SKIN COMPLICATIONS; L08.9 - LOCAL INFECTION OF THE SKIN AND SUBCUTANEOUS TISSUE, UNSP SNOMED Code(s): 917413554 (2) Diabetic ulcer of right foot Current Visit: Yes Status: Acute Code(s): E11.621 - TYPE 2 DIABETES MELLITUS WITH FOOT ULCER; L97.519 - NON-PRS CHRONIC ULCER OTH PRT RIGHT FOOT W UNSP SEVERITY SNOMED Code(s): 612973694 (3) Foot osteomyelitis, right Current Visit: Yes Status: Acute Code(s): M86.9 - OSTEOMYELITIS, UNSPECIFIED SNOMED Code(s): 1430669003567130 (4) Allergy to multiple antibiotics Current Visit: No Status: Acute Code(s): Z88.1 - ALLERGY STATUS TO OTHER ANTIBIOTIC AGENTS SNOMED Code(s): 764800646 Plan: 1patient presented to hospital with worsening wound to the right foot lateral border in this patient who was diagnosed with an osteomyelitis beginning of April he with a culture positive for multiple pathogen and was receiving outpatient IV antibiotic therapy as well as Flagyl patient did have a noncompliance as he did not follow-up in the office last week now presenting to the hospital with worsening wound started after he did develop a blister which he tried to puncture himself patient more likely has had osteomyelitis failing medical therapy. 2MRI of the right foot suggestive of osteomyelitis but no evidence of any abscess, vascular surgery planning for amputation and the patient seem to have agreed to wait 3right foot growing drug-resistant Enterobacter. 4I will discontinue vancomycin pharmacy to dose cefepime and Flagyl, start the patient on meropenem 1 g every 8 hours and monitor clinical course closely Dictation was produced using [employer] dictation software. please excuse any grammatical, word or spelling errors. Time with Patient: Less than 30
[2024-06-08 12:35] LABS: Glucose,Whole Blood 47 mg/dL (70-110)
[2024-06-08 12:55] LABS: Glucose,Whole Blood 53 mg/dL (70-110)
[2024-06-08 13:19] LABS: Glucose,Whole Blood 42 mg/dL (70-110)
[2024-06-08] MEDS: DEXTROSE 50% SYRINGE 50 ML IVP PRN (13:27)
[2024-06-08 13:54] LABS: Glucose,Whole Blood 177 mg/dL (70-110)
[2024-06-08] MEDS: PROCHLORPERAZINE INJ 10 MG/2 ML VIAL IVP PRN (16:54)
[2024-06-08 17:44] LABS: Glucose,Whole Blood 273 mg/dL (70-110)
[2024-06-08] MEDS: chlorproMAZINE 25 MG TAB PO SCH (17:55)
[2024-06-08 19:49] LABS: Glucose,Whole Blood 208 mg/dL (70-110)
--- NOTE | 2024-06-08 23:32 | P.PN ---
Subjective Progress Note Date: 06/08/24 (\) Patient is a 38 year old male with past medical history of insulin dependent diabetes mellitus type 1, diabetic retinopathy, diabetic kidney disease, DKA, hypertension presented to the ED with right foot wound.. Patient recently discharged from the hospital for similar problem. He was discharged home on Daptomycin, Rocephin and oral flagyl. Presents for similar complaint of his left foot pinky toe with new discoloration. Patient denies any other complaint He denies smoking alcohol or illicit drugs Vitals reviewed and stable Labs including CBC, INR, BMP, LFT and troponin were unremarkable. Foot x-ray: Left metatarsal showing medial displacement of the fifth phalanx at the metatarsal phalangeal joint EKG showing sinus rhythm at [address]-T changes Currently he is on clindamycin and levofloxacin and normal saline at 75 mL/h 06/06 Patient is still treated for his infection in the left diabetic left foot wound with surrounding cellulitis. Patient had MRI of the foot today, I reviewed the result by myself, patient has evidence of osteomyelitis of the fifth metatarsal bone as well as over the fifth first proximal phalanx. Also patient has extensive surrounding cellulitis and soft tissue swelling. Pain controlled. Antibiotics was adjusted to IV vancomycin, IV cefepime and p.o. Flagyl He is on normal saline 75 mL/h Vascular surgery team are planning for debridement of his infected tissue. 06/07 Patient denies any new symptoms today His sugar was low overnight and this afternoon. Patient was made n.p.o. because he is going for the procedure. However patient kept his insulin pump running, we asked the patient to stop his insulin pump. Also will place the patient on D5 normal saline at 75 mL/h Patient evaluated by vascular surgery team and they recommended amputation of the fifth toe along fifth metatarsal bone In the meantime patient remains on IV antibiotic cefepime, IV vancomycin and oral Flagyl pending culture results 06/08/2024 Patient is evaluated today he is postoperative day #1 ray amputation of the right 5th toe. He removed the wound vac. It will be put back on to continuous suction. He continues on insulin pump although reports significant nausea and unable to tolerate much diet at this time. He has also been hiccuping for the last 4 days and unable to stop. Wound culture showing enterobacter cloacae complex with resistance to multiple drugs. He continues on IV meropenem and oral flagyl with ID following closely. Review of Systems Constitutional: Denied any fatigue denied any fever. Cardio vascular: denied any chest pain, palpitations Gastrointestinal: reports nausea, no vomiting, diarrhea Pulmonary: Denied any shortness of breath cough Neurologic denied any new focal deficits All inpatient medications were reviewed and appropriate changes in these medications as dictated in the interval history and assessment and plan. PHYSICAL EXAMINATION: GENERAL: The patient is alert and oriented x3, not in any acute distress. Well developed, well nourished. HEENT: Pupils are round and equally reacting to light. EOMI. No scleral icterus. No conjunctival pallor. Normocephalic, atraumatic. No pharyngeal erythema. No thyromegaly. CARDIOVASCULAR: S1 and S2 present. No murmurs, rubs, or gallops. PULMONARY: Chest is clear to auscultation, no wheezing or crackles. ABDOMEN: Soft, nontender, nondistended, normoactive bowel sounds. No palpable organomegaly. MUSCULOSKELETAL: No joint swelling or deformity. EXTREMITIES: No cyanosis, clubbing, or pedal edema. NEUROLOGICAL: Gross neurological examination did not reveal any focal deficits. SKIN: No rashes. right 5th toe amputation dressing in place. Assessment and Plan Osteomyelitis of the right fifth metatarsal secondary to diabetic foot ulcer, s/p I&D on 04/23. cultures growing enterobacter MDRO. status post operative day #1 right fifth toe ray amputation. Insulin-dependent diabetes mellitus, type I with hypoglycemia Hiccups Nausea Major depressive disorder Hypertension Neuropathy Migraine Allergic rhinitis Diabetic gastroparesis History of asthma GI prophylaxis DVT prophylaxis Full Code Plan Continue IV and pO antibiotics per ID Wound vac orders in place to continuous suction Patient is heel weight bearing and postop shoe has been ordered Clear liquid diet Continue antiemetics Monitor blood glucose Continue normal saline at 75 mls/hr. Thorazine x 4 doses ordered for the hiccups if the hiccups resolve can discontinue the medication he does not need all 4 doses ordered. Repeat BMP The impression and plan of care has been dictated by Gabriela Hassan, Nurse Practitioner as directed. Dr. Muriel MD I have performed a history and physical examination and medical decision making of this patient, discussed the same with the dictator, and agree with the dictators assessment and plan as written, documented as a scribe. Based on total visit time, I have performed more than 50% of this visit. Objective - Vital Signs Vital signs: Vital Signs Temp 98.4 F 06/08/24 20:00 Pulse 92 06/08/24 20:00 Resp 17 06/08/24 20:00 BP 102/65 06/08/24 20:00 Pulse Ox 97 06/08/24 20:00 FiO2 Intake & Output 06/08/24 06/08/24 06/09/24 06:59 18:59 06:59 Intake Total 1037 540 Output Total 2040 Balance -1003 540 Intake: Oral 1037 540 Output: Urine 0 Other: Voiding Method Toilet Toilet Toilet Urinal Urinal # Voids 2 - Labs CBC & Chem 7: 06/06/24 05:28 06/07/24 19:52 Labs: Abnormal Lab Results - Last 24 Hours (Table) 06/08/24 06/08/24 06/08/24 Range/Units 04:59 12:34 12:53 POC Glucose (mg/dL) 118 H 47 L* 53 L (70-110) mg/dL 06/08/24 06/08/24 06/08/24 Range/Units 13:17 13:53 17:43 POC Glucose (mg/dL) 42 L* 177 H 273 H (70-110) mg/dL 06/08/24 Range/Units 19:48 POC Glucose (mg/dL) 208 H (70-110) mg/dL Microbiology - Last 24 Hours (Table) 06/05/24 00:51 Blood Culture - Preliminary Blood 06/05/24 14:47 Anaerobic Culture - Preliminary Foot - Right Assessment and Plan Time with Patient: Less than 30
[2024-06-09] MEDS ORDERED: VANCOMYCIN TROUGH DUE 1 EACH MISC MISCELLANE ONE (05:00)
[2024-06-09 06:28] LABS: African American GFR (CKD) >90 (>60 ml/min/1.73 sqM); Anion Gap 8 mmol/L; Blood Urea Nitrogen 4 mg/dL (9-20); Calcium 8.8 mg/dL (8.4-10.2); Carbon Dioxide 31 mmol/L (22-30); Chloride 101 mmol/L (98-107); Non-African American GFR(CKD) >90 (>60 ml/min/1.73 sqM); Sodium 140 mmol/L (137-145)
[2024-06-09 06:30] LABS: Glucose,Whole Blood 41 mg/dL (70-110)
[2024-06-09 07:05] LABS: Glucose 32 mg/dL (74-99)
[2024-06-09 07:53] LABS: Glucose,Whole Blood 112 mg/dL (70-110)
[2024-06-09 12:25] LABS: Glucose,Whole Blood 115 mg/dL (70-110)
--- NOTE | 2024-06-09 14:45 | P.PN ---
Subjective Progress Note Date: 06/09/24 Principal diagnosis: Reason for follow-up is right diabetic foot infection/osteomyelitis Patient is a 38-year-old male with past medical history significant for hypertension type 2 diabetes mellitus patient has been dealing with a wound on the right foot lateral border at the base of the fifth toe with underlying osteomyelitis for the patient was getting outpatient IV and by therapy presenting the hospital with worsening swelling and discoloration to the right foot lateral border after he did develop a blister with the patient try to drain itself. Patient is status post right fifth toe ray amputation and application wound VAC on 06/07/2024. On today's evaluation that is 06/09/2024,the patient remains to be afebrile, patient is on room air not requiring supplemental oxygen and denies any shortness of breath no chest pain or cough.Patient denies having any nausea or vomiting, no abdominal pain and no diarrhea has been reported pain to the right foot is currently controlled. Patient did have a creatinine 0.77 blood culture have been negative so far Objective - Vital Signs Vital signs: Vital Signs Temp 98.3 F 06/09/24 07:50 Pulse 82 06/09/24 07:50 Resp 16 06/09/24 07:50 BP 110/71 06/09/24 07:50 Pulse Ox 98 06/09/24 07:50 FiO2 Intake & Output 06/08/24 06/09/24 06/09/24 18:59 06:59 18:59 Intake Total 1037 540 Output Total 2040 850 Balance -1003 -310 Intake: Oral 1037 540 Output: Urine 2040 850 Other: Voiding Method Toilet Toilet Toilet Urinal Urinal Urinal - Exam GENERAL DESCRIPTION: Middle-age male lying in bed in no distress RESPIRATORY SYSTEM: Unlabored breathing , decreased breath sounds at bases HEART: S1 S2 regular rate and rhythm , ABDOMEN: Soft , no tenderness EXTREMITIES: Right foot wound is currently covered with a wound VAC - Labs CBC & Chem 7: 06/06/24 05:28 06/09/24 05:19 Labs: Abnormal Lab Results - Last 24 Hours (Table) 06/08/24 06/08/24 06/08/24 Range/Units 12:34 12:53 13:17 Carbon Dioxide (22-30) mmol/L BUN (9-20) mg/dL Glucose (74-99) mg/dL POC Glucose (mg/dL) 47 L* 53 L 42 L* (70-110) mg/dL 06/08/24 06/08/24 06/08/24 Range/Units 13:53 17:43 19:48 Carbon Dioxide (22-30) mmol/L BUN (9-20) mg/dL Glucose (74-99) mg/dL POC Glucose (mg/dL) 177 H 273 H 208 H (70-110) mg/dL 06/09/24 06/09/24 06/09/24 Range/Units 05:19 06:27 07:50 Carbon Dioxide 31 H (22-30) mmol/L BUN 4 L (9-20) mg/dL Glucose 32 L* (74-99) mg/dL POC Glucose (mg/dL) 41 L* 112 H (70-110) mg/dL Microbiology - Last 24 Hours (Table) 06/05/24 00:51 Blood Culture - Preliminary Blood Assessment and Plan (1) Diabetic foot infection Current Visit: Yes Status: Acute Code(s): E11.628 - TYPE 2 DIABETES MELLITUS WITH OTHER SKIN COMPLICATIONS; L08.9 - LOCAL INFECTION OF THE SKIN AND SUBCUTANEOUS TISSUE, UNSP SNOMED Code(s): 907456608 (2) Diabetic ulcer of right foot Current Visit: Yes Status: Acute Code(s): E11.621 - TYPE 2 DIABETES MELLITUS WITH FOOT ULCER; L97.519 - NON-PRS CHRONIC ULCER OTH PRT RIGHT FOOT W UNSP SEVERITY SNOMED Code(s): 568770972 (3) Foot osteomyelitis, right Current Visit: Yes Status: Acute Code(s): M86.9 - OSTEOMYELITIS, UNSPECIFIED SNOMED Code(s): 1673162128508642 (4) Allergy to multiple antibiotics Current Visit: No Status: Acute Code(s): Z88.1 - ALLERGY STATUS TO OTHER ANTIBIOTIC AGENTS SNOMED Code(s): 645014109 Plan: 1patient presented to hospital with worsening wound to the right foot lateral border in this patient who was diagnosed with an osteomyelitis beginning of April he with a culture positive for multiple pathogen and was receiving outpatient IV antibiotic therapy as well as Flagyl patient did have a noncompliance as he did not follow-up in the office last week now presenting to the hospital with worsening wound started after he did develop a blister which he tried to puncture himself patient more likely has had osteomyelitis failing medical therapy. 2MRI of the right foot suggestive of osteomyelitis but no evidence of any abscess, vascular surgery planning for amputation and the patient seem to have agreed to wait 3right foot growing drug-resistant Enterobacter. 4patient is currently being treated meropenem 1 g every 8 hours keeping in mind he did have extensive open wound post amputation of the toe and will need a few weeks of IV Invanz on discharge this was explained to the case management manager as well as JUNIOR LINUX ADMINISTRATOR for admitting team Dictation was produced using [employer] dictation software. please excuse any grammatical, word or spelling errors. Time with Patient: Less than 30
[2024-06-09] MEDS ORDERED: METOCLOPRAMIDE 5 MG/ML 2 ML VIAL IVP PRN (15:03)
--- NOTE | 2024-06-09 16:31 | P.PN ---
Progress Note - Text 38-year-old or diabetic male patient has osteo of the right foot fifth toe and metatarsal phalangeal joint patient had a ray amputation and we placed a wound VAC patient is an IV antibiotic under care of infectious disease if patient goes home will follow in the wound clinic continue with wound VAC and IV antibiotic under care of infectious disease
[2024-06-09 17:46] LABS: Glucose,Whole Blood 147 mg/dL (70-110)
[2024-06-09 20:15] LABS: Glucose,Whole Blood 230 mg/dL (70-110)
[2024-06-10 05:48] LABS: Glucose,Whole Blood 162 mg/dL (70-110)
--- NOTE | 2024-06-10 06:00 | P.PN ---
Subjective Progress Note Date: 06/09/24 Patient is a 38 year old male with past medical history of insulin dependent diabetes mellitus type 1, diabetic retinopathy, diabetic kidney disease, DKA, hypertension presented to the ED with right foot wound.. Patient recently discharged from the hospital for similar problem. He was discharged home on Daptomycin, Rocephin and oral flagyl. Presents for similar complaint of his left foot pinky toe with new discoloration. Patient denies any other complaint He denies smoking alcohol or illicit drugs Vitals reviewed and stable Labs including CBC, INR, BMP, LFT and troponin were unremarkable. Foot x-ray: Left metatarsal showing medial displacement of the fifth phalanx at the metatarsal phalangeal joint EKG showing sinus rhythm at [address]-T changes Currently he is on clindamycin and levofloxacin and normal saline at 75 mL/h 06/06 Patient is still treated for his infection in the left diabetic left foot wound with surrounding cellulitis. Patient had MRI of the foot today, I reviewed the result by myself, patient has evidence of osteomyelitis of the fifth metatarsal bone as well as over the fifth first proximal phalanx. Also patient has extensive surrounding cellulitis and soft tissue swelling. Pain controlled. Antibiotics was adjusted to IV vancomycin, IV cefepime and p.o. Flagyl He is on normal saline 75 mL/h Vascular surgery team are planning for debridement of his infected tissue. 06/07 Patient denies any new symptoms today His sugar was low overnight and this afternoon. Patient was made n.p.o. because he is going for the procedure. However patient kept his insulin pump running, we asked the patient to stop his insulin pump. Also will place the patient on D5 normal saline at 75 mL/h Patient evaluated by vascular surgery team and they recommended amputation of the fifth toe along fifth metatarsal bone In the meantime patient remains on IV antibiotic cefepime, IV vancomycin and oral Flagyl pending culture results 06/08/2024 Patient is evaluated today he is postoperative day #1 ray amputation of the right 5th toe. He removed the wound vac. It will be put back on to continuous suction. He continues on insulin pump although reports significant nausea and unable to tolerate much diet at this time. He has also been hiccuping for the last 4 days and unable to stop. Wound culture showing enterobacter cloacae complex with resistance to multiple drugs. He continues on IV meropenem and oral flagyl with ID following closely. 06/09/2024 Patient is seen in follow-up today postop day 2 amputation of the right fifth toe with Dr. Luu vascular surgery. Infectious disease following and maintained on meropenem along with Flagyl and will discuss regarding further antibiotic recommendations once cultures have finalized. Patient will also require a wound VAC which will require insurance authorization and social work following awaiting prescription from vascular surgery to submit for authorization on wound VAC. Patient will be going to infusion center and will likely continue on IV Invanz for 4 weeks. Patient does have a PICC line at this time. Review of Systems Constitutional: Denied any fatigue denied any fever. Cardio vascular: denied any chest pain, palpitations Gastrointestinal: reports nausea, no vomiting, diarrhea Pulmonary: Denied any shortness of breath cough Neurologic denied any new focal deficits All inpatient medications were reviewed and appropriate changes in these medications as dictated in the interval history and assessment and plan. PHYSICAL EXAMINATION: GENERAL: The patient is alert and oriented x3, not in any acute distress. Well developed, thin built, appears older than stated age HEENT: Pupils are round and equally reacting to light. EOMI. No scleral icterus. No conjunctival pallor. Normocephalic, atraumatic. No pharyngeal erythema. No thyromegaly. CARDIOVASCULAR: S1 and S2 present. No murmurs, rubs, or gallops. PULMONARY: Chest is clear to auscultation, no wheezing or crackles. ABDOMEN: Soft, nontender, nondistended, normoactive bowel sounds. No palpable organomegaly. MUSCULOSKELETAL: No joint swelling or deformity. EXTREMITIES: No cyanosis, clubbing, or pedal edema. NEUROLOGICAL: Gross neurological examination did not reveal any focal deficits. SKIN: No rashes. right 5th toe amputation dressing in place. Assessment: Osteomyelitis of the right fifth metatarsal secondary to diabetic foot ulcer, s/p I&D on 04/23. cultures growing enterobacter MDRO. status post operative day #2 right fifth toe amputation. Insulin-dependent diabetes mellitus, type I with hypoglycemia Hiccups, improving Nausea Major depressive disorder Hypertension Neuropathy Migraine Allergic rhinitis Diabetic gastroparesis History of asthma GI prophylaxis DVT prophylaxis Full Code Plan: Continue IV and pO antibiotics per ID. Patient does have a PICC line and will likely continue on IV Invanz for 4 weeks on discharge Wound vac orders in place to continuous suction and awaiting prescription from vascular surgery and social work following as patient will require insurance authorization for wound VAC on discharge Patient is heel weight bearing and postop shoe has been ordered Clear liquid diet, advance as tolerated per patient Continue antiemetics Monitor blood glucose Continue normal saline at 75 mls/hr. Social work following arranging IV antibiotics outpatient and will continue 4 weeks of IV Invanz per ID recommendations. Vascular surgery to redress the wound and evaluate and will need wound VAC on discharge. Patient requires insurance authorization for wound VAC which will be submitted Will discuss with other consultations regarding discharge planning, possibly in the next 24 to 48 hours The impression and plan of care has been dictated by Loyda Chang Nurse Practitioner as directed. Dr. Muriel MD I have performed a history and physical examination and medical decision making of this patient, discussed the same with the dictator, and agree with the dictators assessment and plan as written, documented as a scribe. Based on total visit time, I have performed more than 50% of this visit. Objective - Vital Signs Vital signs: Vital Signs Temp 98.3 F 06/09/24 07:50 Pulse 82 06/09/24 07:50 Resp 16 06/09/24 07:50 BP 110/71 06/09/24 07:50 Pulse Ox 98 06/09/24 07:50 FiO2 Intake & Output 06/08/24 06/09/24 06/09/24 18:59 06:59 18:59 Intake Total 1037 540 Output Total 2040 850 Balance -1003 -310 Intake: Oral 1037 540 Output: Urine 2040 850 Other: Voiding Method Toilet Toilet Urinal Urinal - Labs CBC & Chem 7: 06/06/24 05:28 06/09/24 05:19 Labs: Abnormal Lab Results - Last 24 Hours (Table) 06/08/24 06/08/24 06/08/24 Range/Units 12:34 12:53 13:17 Carbon Dioxide (22-30) mmol/L BUN (9-20) mg/dL Glucose (74-99) mg/dL POC Glucose (mg/dL) 47 L* 53 L 42 L* (70-110) mg/dL 06/08/24 06/08/24 06/08/24 Range/Units 13:53 17:43 19:48 Carbon Dioxide (22-30) mmol/L BUN (9-20) mg/dL Glucose (74-99) mg/dL POC Glucose (mg/dL) 177 H 273 H 208 H (70-110) mg/dL 06/09/24 06/09/24 06/09/24 Range/Units 05:19 06:27 07:50 Carbon Dioxide 31 H (22-30) mmol/L BUN 4 L (9-20) mg/dL Glucose 32 L* (74-99) mg/dL POC Glucose (mg/dL) 41 L* 112 H (70-110) mg/dL Microbiology - Last 24 Hours (Table) 06/05/24 00:51 Blood Culture - Preliminary Blood
[2024-06-10 12:11] LABS: Glucose,Whole Blood 264 mg/dL (70-110)
--- NOTE | 2024-06-10 12:46 | P.PN ---
Subjective Progress Note Date: 06/10/24 Principal diagnosis: Reason for follow-up is right diabetic foot infection/osteomyelitis Patient is a 38-year-old male with past medical history significant for hypertension type 2 diabetes mellitus patient has been dealing with a wound on the right foot lateral border at the base of the fifth toe with underlying osteomyelitis for the patient was getting outpatient IV and by therapy presenting the hospital with worsening swelling and discoloration to the right foot lateral border after he did develop a blister with the patient try to drain itself. Patient is status post right fifth toe ray amputation and application wound VAC on 06/07/2024. On today's evaluation that is 06/10/2024, the patient continues to be afebrile, the patient is on room air and breathing comfortably, the Pt denies having any chest pain or cough, the patient denies having any abdominal pain no vomiting or any diarrhea, pain to the right foot is currently controlled. No new lab has been repeated today culture with Enterobacter Objective - Vital Signs Vital signs: Vital Signs Temp 97.7 F 06/10/24 07:30 Pulse 90 06/10/24 07:30 Resp 16 06/10/24 07:30 BP 116/76 06/10/24 07:30 Pulse Ox 96 06/10/24 07:30 FiO2 Intake & Output 06/09/24 06/10/24 06/10/24 18:59 06:59 18:59 Intake Total 540 Output Total 700 900 Balance -700 -360 Intake: Oral 540 Output: Urine 700 900 Other: Voiding Method Toilet Toilet Urinal Urinal - Exam GENERAL DESCRIPTION: Middle-age male lying in bed in no distress RESPIRATORY SYSTEM: Unlabored breathing , decreased breath sounds at bases HEART: S1 S2 regular rate and rhythm , ABDOMEN: Soft , no tenderness EXTREMITIES: Right foot wound is currently covered with a wound VAC - Labs CBC & Chem 7: 06/06/24 05:28 06/09/24 05:19 Labs: Abnormal Lab Results - Last 24 Hours (Table) 06/09/24 06/09/24 06/09/24 Range/Units 12:23 17:50 20:12 POC Glucose (mg/dL) 115 H 147 H 230 H (70-110) mg/dL 06/10/24 Range/Units 05:46 POC Glucose (mg/dL) 162 H (70-110) mg/dL Microbiology - Last 24 Hours (Table) 06/05/24 14:47 Anaerobic Culture - Final Foot - Right Assessment and Plan (1) Diabetic foot infection Current Visit: Yes Status: Acute Code(s): E11.628 - TYPE 2 DIABETES MELLITUS WITH OTHER SKIN COMPLICATIONS; L08.9 - LOCAL INFECTION OF THE SKIN AND SUBCUTANEOUS TISSUE, UNSP SNOMED Code(s): 510121546 (2) Diabetic ulcer of right foot Current Visit: Yes Status: Acute Code(s): E11.621 - TYPE 2 DIABETES MELLITUS WITH FOOT ULCER; L97.519 - NON-PRS CHRONIC ULCER OTH PRT RIGHT FOOT W UNSP SEVERITY SNOMED Code(s): 203845699 (3) Foot osteomyelitis, right Current Visit: Yes Status: Acute Code(s): M86.9 - OSTEOMYELITIS, UNSPECIFIED SNOMED Code(s): 4279710411144015 (4) Allergy to multiple antibiotics Current Visit: No Status: Acute Code(s): Z88.1 - ALLERGY STATUS TO OTHER ANTIBIOTIC AGENTS SNOMED Code(s): 321299358 Plan: 1patient presented to hospital with worsening wound to the right foot lateral border in this patient who was diagnosed with an osteomyelitis beginning of April he with a culture positive for multiple pathogen and was receiving outpatient IV antibiotic therapy as well as Flagyl patient did have a noncompliance as he did not follow-up in the office last week now presenting to the hospital with worsening wound started after he did develop a blister which he tried to puncture himself patient more likely has had osteomyelitis failing medical therapy. 2MRI of the right foot suggestive of osteomyelitis but no evidence of any abscess, patient is status post right fifth toe amputation by vascular surgery 3right foot culture growing drug-resistant Enterobacter, Blood culture neg ative 4patient is currently being treated meropenem 1 g every 8 hours keeping in mind he did have extensive open wound post amputation of the toe and will need a few weeks of IV Invanz on discharge, his question concern answered Dictation was produced using [employer] dictation software. please excuse any grammatical, word or spelling errors. Time with Patient: Less than 30
[2024-06-10 17:17] LABS: Glucose,Whole Blood 111 mg/dL (70-110)
[2024-06-10 20:02] LABS: Glucose,Whole Blood 279 mg/dL (70-110)
[2024-06-10] MEDS ORDERED: chlorproMAZINE 25 MG TAB PO PRN (21:00)
[2024-06-11 05:49] LABS: Glucose,Whole Blood 157 mg/dL (70-110)
--- NOTE | 2024-06-11 06:11 | P.PN ---
Subjective Progress Note Date: 06/10/24 Patient is a 38 year old male with past medical history of insulin dependent diabetes mellitus type 1, diabetic retinopathy, diabetic kidney disease, DKA, hypertension presented to the ED with right foot wound.. Patient recently discharged from the hospital for similar problem. He was discharged home on Daptomycin, Rocephin and oral flagyl. Presents for similar complaint of his left foot pinky toe with new discoloration. Patient denies any other complaint He denies smoking alcohol or illicit drugs Vitals reviewed and stable Labs including CBC, INR, BMP, LFT and troponin were unremarkable. Foot x-ray: Left metatarsal showing medial displacement of the fifth phalanx at the metatarsal phalangeal joint EKG showing sinus rhythm at [address]-T changes Currently he is on clindamycin and levofloxacin and normal saline at 75 mL/h 06/06 Patient is still treated for his infection in the left diabetic left foot wound with surrounding cellulitis. Patient had MRI of the foot today, I reviewed the result by myself, patient has evidence of osteomyelitis of the fifth metatarsal bone as well as over the fifth first proximal phalanx. Also patient has extensive surrounding cellulitis and soft tissue swelling. Pain controlled. Antibiotics was adjusted to IV vancomycin, IV cefepime and p.o. Flagyl He is on normal saline 75 mL/h Vascular surgery team are planning for debridement of his infected tissue. 06/07 Patient denies any new symptoms today His sugar was low overnight and this afternoon. Patient was made n.p.o. because he is going for the procedure. However patient kept his insulin pump running, we asked the patient to stop his insulin pump. Also will place the patient on D5 normal saline at 75 mL/h Patient evaluated by vascular surgery team and they recommended amputation of the fifth toe along fifth metatarsal bone In the meantime patient remains on IV antibiotic cefepime, IV vancomycin and oral Flagyl pending culture results 06/08/2024 Patient is evaluated today he is postoperative day #1 ray amputation of the right 5th toe. He removed the wound vac. It will be put back on to continuous suction. He continues on insulin pump although reports significant nausea and unable to tolerate much diet at this time. He has also been hiccuping for the last 4 days and unable to stop. Wound culture showing enterobacter cloacae complex with resistance to multiple drugs. He continues on IV meropenem and oral flagyl with ID following closely. 06/09/2024 Patient is seen in follow-up today postop day 2 amputation of the right fifth toe with Dr. Luu vascular surgery. Infectious disease following and maintained on meropenem along with Flagyl and will discuss regarding further antibiotic recommendations once cultures have finalized. Patient will also require a wound VAC which will require insurance authorization and social work following awaiting prescription from vascular surgery to submit for authorization on wound VAC. Patient will be going to infusion center and will likely continue on IV Invanz for 4 weeks. Patient does have a PICC line at this time. 06/10/2024 Patient is seen in follow-up today Review of Systems Constitutional: Denied any fatigue denied any fever. Cardio vascular: denied any chest pain, palpitations Gastrointestinal: reports nausea, no vomiting, diarrhea Pulmonary: Denied any shortness of breath cough Neurologic denied any new focal deficits All inpatient medications were reviewed and appropriate changes in these medications as dictated in the interval history and assessment and plan. PHYSICAL EXAMINATION: GENERAL: The patient is alert and oriented x3, not in any acute distress. Well developed, thin built, appears older than stated age HEENT: Pupils are round and equally reacting to light. EOMI. No scleral icterus. No conjunctival pallor. Normocephalic, atraumatic. No pharyngeal erythema. No thyromegaly. CARDIOVASCULAR: S1 and S2 present. No murmurs, rubs, or gallops. PULMONARY: Chest is clear to auscultation, no wheezing or crackles. ABDOMEN: Soft, nontender, nondistended, normoactive bowel sounds. No palpable or ganomegaly. MUSCULOSKELETAL: No joint swelling or deformity. EXTREMITIES: No cyanosis, clubbing, or pedal edema. NEUROLOGICAL: Gross neurological examination did not reveal any focal deficits. SKIN: No rashes. right 5th toe amputation dressing in place. Assessment: Osteomyelitis of the right fifth metatarsal secondary to diabetic foot ulcer, s/p I&D on 04/23. cultures growing enterobacter MDRO. status post operative day #2 right fifth toe amputation. Insulin-dependent diabetes mellitus, type I with hypoglycemia Hiccups, improving Nausea Major depressive disorder Hypertension Neuropathy Migraine Allergic rhinitis Diabetic gastroparesis History of asthma GI prophylaxis DVT prophylaxis Full Code Plan: Continue IV and pO antibiotics per ID. Patient does have a PICC line and will continue on IV Invanz for 4 weeks on discharge Wound vac orders in place to continuous suction and awaiting insurance authorization for wound VAC on discharge, remains pending at this time Patient is heel weight bearing and postop shoe has been ordered Clear liquid diet, advance as tolerated per patient Continue antiemetics Monitor blood glucose Continue normal saline at 75 mls/hr. Social work following arranging IV antibiotics outpatient and will continue 4 weeks of IV Invanz 1 gram per ID recommendations. Vascular surgery to redress the wound and evaluate and will need wound VAC on discharge. Patient requires insurance authorization for wound VAC which was submitted today Will discuss with other consultations regarding discharge planning, possibly in the next 24 to 48 hours if wound vac is approved The impression and plan of care has been dictated by Loyda Chang, Nurse Practitioner as directed. Dr. Muriel MD I have performed a history and physical examination and medical decision making of this patient, discussed the same with the dictator, and agree with the d ictators assessment and plan as written, documented as a scribe. Based on total visit time, I have performed more than 50% of this visit. Objective - Vital Signs Vital signs: Vital Signs Temp 97.7 F 06/10/24 07:30 Pulse 90 06/10/24 07:30 Resp 16 06/10/24 07:30 BP 116/76 06/10/24 07:30 Pulse Ox 96 06/10/24 07:30 FiO2 Intake & Output 06/09/24 06/10/24 06/10/24 18:59 06:59 18:59 Intake Total 540 Output Total 700 900 Balance -700 -360 Intake: Oral 540 Output: Urine 700 900 Other: Voiding Method Toilet Toilet Urinal Urinal - Labs CBC & Chem 7: 06/06/24 05:28 06/09/24 05:19 Labs: Abnormal Lab Results - Last 24 Hours (Table) 06/09/24 06/09/24 06/09/24 Range/Units 12:23 17:50 20:12 POC Glucose (mg/dL) 115 H 147 H 230 H (70-110) mg/dL 06/10/24 Range/Units 05:46 POC Glucose (mg/dL) 162 H (70-110) mg/dL Microbiology - Last 24 Hours (Table) 06/05/24 14:47 Anaerobic Culture - Final Foot - Right
--- NOTE | 2024-06-11 08:58 | P.GSCN ---
History of Present Illness History of present illness: 38-year-old gentleman consulted for placement of a dialysis catheter. Patient has acute kidney injury with hyperkalemia hypernatremia Medical history of diabetes hypertension chronic wound to the foot under care of infectious disease on examination patient seen in his room chest has crackles bilateral . Second sound present Abdomen is soft nontender 1+ bilateral has a contracture of the right knee Plan is placement of a dialysis catheter risk and complication discussed Past Medical History Past Medical History: Diabetes Mellitus, Hypertension, Renal Disease Additional Past Medical History / Comment(s): IDDM type I, past DKA about 8months ago, neuropathy bilateral legs and runs up L side of body/L arm, hand and L side of face, L eye diabetic retinopathy, diabetic nephropathy-elevated urine protein, benign nasal polyp, bone dx, fangoliamagna, right foot debridement x3, left pinky toe amputation. osteomylitis right foot with IV abx tx ,picc line left upper arm. gastroparesis. insulin pump dependent. History of Any Multi-Drug Resistant Organisms: MRSA Year Discovered:: 04/19/24 MDRO Source:: rt foot Past Surgical History: Tonsillectomy Additional Past Surgical History / Comment(s): Closed reduction nasal bone fracture with fixation septoplasty/open reduction L malary zygomatic arch fracture. lymph node removal, September 2022 - left thigh, left eye cataract removed. Past Anesthesia/Blood Transfusion Reactions: No Reported Reaction Past Psychological History: Anxiety, Bipolar, Depression Additional Psychological History / Comment(s): Pt resides with his girlfriend, currently unemployed. severe social anxiety, able to drive. Smoking Status: Former smoker Past Alcohol Use History: None Reported Additional Past Alcohol Use History / Comment(s): Pt started smoking in 2003, quit 2007 and a pack will last 3 days. Past Drug Use History: Marijuana Additional Drug Use History / Comment(s): daily THC use - Past Family History Father Family Medical History: No Reported History Additional Family Medical History / Comment(s): Father is healthy Mother Family Medical History: Diabetes Mellitus Additional Family Medical History / Comment(s): Gastric ulcer, one leg shorter, neuropathy involving arms. Medications and Allergies Home Medications Medication Instructions Recorded Confirmed Type Loratadine [Claritin] 10 mg PO DAILY 03/17/18 06/05/24 History Albuterol Sulfate [Ventolin HFA] 1 puff INHALATION RT-Q4H PRN 07/25/21 06/05/24 History Montelukast [Singulair] 10 mg PO DAILY 07/25/21 06/05/24 History Ibuprofen [Motrin] 800 mg PO TID PRN 06/19/22 06/05/24 History Insulin Aspart (For Pump) [NovoLOG 0.01 unit SQ-PUMP CONTINUOUS 06/19/22 06/05/24 History (For Pump)] Famotidine [Pepcid] 40 mg PO HS 10/03/22 06/05/24 History Pantoprazole [Protonix] 40 mg PO BID 11/23/22 06/05/24 History Baclofen [Lioresal] 10 mg PO BID PRN 04/18/24 06/05/24 History Fluticasone Nasal [place] [Flonase 1 spr EA NOSTRIL DAILY 04/18/24 06/05/24 History Nasal [place]] Gabapentin [Neurontin] 400 mg PO TID 04/18/24 06/05/24 History Ketorolac 0.5% Ophth Soln [Acular 1 drop LEFT EYE QID 04/18/24 06/05/24 History 0.5%] Levalbuterol Tartrate 2 puff INHALATION RT-Q4H PRN 04/18/24 06/05/24 History [Levalbuterol Tartrate 45 MCG Hfa] Losartan [Cozaar] 12.5 mg PO DAILY 04/18/24 06/05/24 History Pregabalin [Lyrica] 100 mg PO TID 04/18/24 06/05/24 History SUMAtriptan succinate [Imitrex] 50 mg PO DAILY PRN 04/18/24 06/05/24 History hydrOXYzine HCL [Atarax] 25 mg PO BID PRN 04/18/24 06/05/24 History hydrOXYzine HCL [Atarax] 50 mg PO HS 04/18/24 06/05/24 History prednisoLONE ACETATE 1% OPHTH 1 drop LEFT EYE QID 04/18/24 06/05/24 History [Pred Forte 1%] metroNIDAZOLE [Flagyl] 500 mg PO TID #90 tab 04/25/24 06/05/24 Rx Metoclopramide [Reglan] 5 mg PO DAILY PRN 14 Days #14 tab 04/27/24 06/05/24 Rx Prochlorperazine [Compazine] 5 mg PO Q8HR PRN 14 Days #42 tab 04/27/24 06/05/24 Rx DULoxetine HCL [Cymbalta] 20 mg PO DAILY 06/05/24 06/05/24 History DULoxetine HCL [Cymbalta] 30 mg PO DAILY 06/05/24 06/05/24 History Mirtazapine [Remeron] 30 mg PO HS 06/05/24 06/05/24 History Allergies Allergy/AdvReac Type Severity Reaction Status Date / Time Penicillins Allergy Unknown Verified 06/05/24 12:40 Childhood sulfamethoxazole Allergy Rash/Hives Verified 06/05/24 12:40 [From Bactrim] trimethoprim [From Bactrim] Allergy Rash/Hives Verified 06/05/24 12:40 Surgical - Exam Vital Signs Temp Pulse Resp BP Pulse Ox 99.3 F 104 H 20 128/86 97 06/05/24 00:09 06/05/24 00:09 06/05/24 00:09 06/05/24 00:09 06/05/24 00:09 Results - Labs 06/06/24 05:28 06/09/24 05:19 Abnormal Lab Results - Last 24 Hours (Table) 06/10/24 06/10/24 06/10/24 Range/Units 12:09 17:16 20:00 POC Glucose (mg/dL) 264 H 111 H 279 H (70-110) mg/dL 06/11/24 Range/Units 05:48 POC Glucose (mg/dL) 157 H (70-110) mg/dL Microbiology - Last 24 Hours (Table) 06/05/24 00:51 Blood Culture - Final Blood
--- NOTE | 2024-06-11 08:59 | P.PCN ---
Description of Procedure: Preop diagnosis acute chronic renal failure hyperkalemia hyponatremia Postop the same Procedure ultrasound-guided 30 cm dialysis catheter placed right femoral approach brought to the Molding Engineer both groins were prepped and draped in Prestel manner 1% lidocaine for infiltrated right groin area. Ultrasound-guided micropuncture introduced right femoral vein micropuncture guide was passed and 4 Icelandic sheath advanced up the guidewire. Regular guidewire return tender was passed on the top of guidewire then replaced 30 cm dialysis catheter in top of the guidewire guidewire was removed flushed with heparin saline hep-locked secured with 3-0 nylon dressing applied patient tarted the procedure well
[2024-06-11 10:03] LABS: HCT 38.4 % (39.6-50.0); HGB 12.8 g/dL (13.0-17.0); MCH 31.1 pg (27.0-32.0); MCHC 33.3 g/dL (32.0-37.0); MCV 93.4 FL (80.0-97.0); Mean Platelet Volume 11.3 FL (9.5-12.2); NRBC Per 100 WBC 0 X 10*3/uL (0.00-0.01); Platelet Count 305 X 10*3/uL (140-440); RBC 4.11 X 10*6/uL (4.40-5.60); WBC 3.56 X 10*3/uL (4.50-10.00)
[2024-06-11 10:13] LABS: BUN/Creat Ratio 10.38 Ratio (12.00-20.00); Blood Urea Nitrogen 8.3 mg/dL (9.0-27.0); Calcium 8.7 mg/dL (8.7-10.3); Carbon Dioxide 30.7 mmol/L (21.6-31.8); Chloride 102 mmol/L (96-109); Glucose 149 mg/dL (70-110); Potassium 4.5 mmol/L (3.5-5.5); Sodium 141 mmol/L (135-145)
[2024-06-11 10:52] LABS: Basophils # (A) 0.06 X 10*3/uL (0.00-0.10); Basophils % (A) 1.7 %; Eosinophils % (A) 11.2 %; Lymphocytes # (A) 1.49 X 10*3/uL (0.90-5.00); Lymphocytes % (A) 41.9 %; Monocytes # (A) 0.66 X 10*3/uL (0.20-1.00); Monocytes % (A) 18.5 %; Neutrophils # (A) 0.94 X 10*3/uL (1.80-7.70); Neutrophils % (A) 26.4 %; RBC Morphology Normal (Normal)
[2024-06-11 12:00] LABS: Glucose,Whole Blood 141 mg/dL (70-110)
--- NOTE | 2024-06-11 12:38 | P.PN ---
Subjective Progress Note Date: 06/11/24 Principal diagnosis: Reason for follow-up is right diabetic foot infection/osteomyelitis Patient is a 38-year-old male with past medical history significant for hypertension type 2 diabetes mellitus patient has been dealing with a wound on the right foot lateral border at the base of the fifth toe with underlying osteomyelitis for the patient was getting outpatient IV and by therapy presenting the hospital with worsening swelling and discoloration to the right foot lateral border after he did develop a blister with the patient try to drain itself. Patient is status post right fifth toe ray amputation and application wound VAC on 06/07/2024. On today's evaluation that is 06/11/2024, patient did not have any fever and denies any chills, patient is breathing comfortably on room air, patient with no chest pain or cough patient did not have any abdominal pain nausea vomiting or any loose stools pain to the right foot is currently controlled. Patient white count is 3.56, creatinine 0.8 blood culture has been negative Objective - Vital Signs Vital signs: Vital Signs Temp 97.9 F 06/11/24 08:00 Pulse 83 06/11/24 08:00 Resp 15 06/11/24 08:00 BP 113/73 06/11/24 08:00 Pulse Ox 93 L 06/11/24 08:00 FiO2 Intake & Output 06/10/24 06/11/24 06/11/24 18:59 06:59 18:59 Intake Total 236 Output Total 2440 300 Balance -2204 -300 Weight 75.75 kg Intake: Oral 236 Output: Urine 2440 300 Other: Voiding Method Toilet Toilet Urinal Urinal - Exam GENERAL DESCRIPTION: Middle-age male lying in bed in no distress RESPIRATORY SYSTEM: Unlabored breathing , decreased breath sounds at bases HEART: S1 S2 regular rate and rhythm , ABDOMEN: Soft , no tenderness EXTREMITIES: Right foot wound is currently covered with a wound VAC - Labs CBC & Chem 7: 06/11/24 06:03 06/11/24 06:03 Labs: Abnormal Lab Results - Last 24 Hours (Table) 06/10/24 06/10/24 06/11/24 Range/Units 17:16 20:00 05:48 WBC (4.50-10.00) X 10*3/uL RBC (4.40-5.60) X 10*6/uL Hgb (13.0-17.0) g/dL Hct (39.6-50.0) % Neutrophils # (1.80-7.70) X 10*3/uL Eosinophils # (0.04-0.35) X 10*3/uL BUN (9.0-27.0) mg/dL BUN/Creatinine Ratio (12.00-20.00) Ratio Glucose (70-110) mg/dL POC Glucose (mg/dL) 111 H 279 H 157 H (70-110) mg/dL 06/11/24 06/11/24 06/11/24 Range/Units 06:03 06:03 11:58 WBC 3.56 L (4.50-10.00) X 10*3/uL RBC 4.11 L (4.40-5.60) X 10*6/uL Hgb 12.8 L (13.0-17.0) g/dL Hct 38.4 L (39.6-50.0) % Neutrophils # 0.94 L (1.80-7.70) X 10*3/uL Eosinophils # 0.40 H (0.04-0.35) X 10*3/uL BUN 8.3 L (9.0-27.0) mg/dL BUN/Creatinine Ratio 10.38 L (12.00-20.00) Ratio Glucose 149 H (70-110) mg/dL POC Glucose (mg/dL) 141 H (70-110) mg/dL Microbiology - Last 24 Hours (Table) 06/05/24 00:51 Blood Culture - Final Blood Assessment and Plan (1) Diabetic foot infection Current Visit: Yes Status: Acute Code(s): E11.628 - TYPE 2 DIABETES MELLITUS WITH OTHER SKIN COMPLICATIONS; L08.9 - LOCAL INFECTION OF THE SKIN AND SUBCUTANEOUS TISSUE, UNSP SNOMED Code(s): 318717488 (2) Diabetic ulcer of right foot Current Visit: Yes Status: Acute Code(s): E11.621 - TYPE 2 DIABETES MELLITUS WITH FOOT ULCER; L97.519 - NON-PRS CHRONIC ULCER OTH PRT RIGHT FOOT W UNSP SEVERITY SNOMED Code(s): 506249771 (3) Foot osteomyelitis, right Current Visit: Yes Status: Acute Code(s): M86.9 - OSTEOMYELITIS, UNSPECIFIED SNOMED Code(s): 8200132206421903 (4) Allergy to multiple antibiotics Current Visit: No Status: Acute Code(s): Z88.1 - ALLERGY STATUS TO OTHER ANTIBIOTIC AGENTS SNOMED Code(s): 200799318 Plan: 1patient presented to hospital with worsening wound to the right foot lateral border in this patient who was diagnosed with an osteomyelitis beginning of April he with a culture positive for multiple pathogen and was receiving outpatient IV antibiotic therapy as well as Flagyl patient did have a noncompliance as he did not follow-up in the office last week now presenting to the hospital with worsening wound started after he did develop a blister which he tried to puncture himself patient more likely has had osteomyelitis failing m edical therapy. 2MRI of the right foot suggestive of osteomyelitis but no evidence of any abscess, patient is status post right fifth toe amputation by vascular surgery 3right foot culture growing drug-resistant Enterobacter, Blood culture negative 4patient to continue meropenem 1 g every 8 hours plan is to transition to IV Invanz on discharge, once he get insurance authorization for the wound VAC Dictation was produced using [employer] dictation software. please excuse any grammatical, word or spelling errors. Time with Patient: Less than 30
[2024-06-11 17:14] LABS: Glucose,Whole Blood 232 mg/dL (70-110)
[2024-06-11 20:00] LABS: Glucose,Whole Blood 326 mg/dL (70-110)
--- NOTE | 2024-06-11 20:21 | P.PN ---
Subjective Progress Note Date: 06/11/24 Patient is a 38 year old male with past medical history of insulin dependent diabetes mellitus type 1, diabetic retinopathy, diabetic kidney disease, DKA, hypertension presented to the ED with right foot wound.. Patient recently discharged from the hospital for similar problem. He was discharged home on Daptomycin, Rocephin and oral flagyl. Presents for similar complaint of his left foot pinky toe with new discoloration. Patient denies any other complaint He denies smoking alcohol or illicit drugs Vitals reviewed and stable Labs including CBC, INR, BMP, LFT and troponin were unremarkable. Foot x-ray: Left metatarsal showing medial displacement of the fifth phalanx at the metatarsal phalangeal joint EKG showing sinus rhythm at [address]-T changes Currently he is on clindamycin and levofloxacin and normal saline at 75 mL/h 06/06 Patient is still treated for his infection in the left diabetic left foot wound with surrounding cellulitis. Patient had MRI of the foot today, I reviewed the result by myself, patient has evidence of osteomyelitis of the fifth metatarsal bone as well as over the fifth first proximal phalanx. Also patient has extensive surrounding cellulitis and soft tissue swelling. Pain controlled. Antibiotics was adjusted to IV vancomycin, IV cefepime and p.o. Flagyl He is on normal saline 75 mL/h Vascular surgery team are planning for debridement of his infected tissue. 06/07 Patient denies any new symptoms today His sugar was low overnight and this afternoon. Patient was made n.p.o. because he is going for the procedure. However patient kept his insulin pump running, we asked the patient to stop his insulin pump. Also will place the patient on D5 normal saline at 75 mL/h Patient evaluated by vascular surgery team and they recommended amputation of the fifth toe along fifth metatarsal bone In the meantime patient remains on IV antibiotic cefepime, IV vancomycin and oral Flagyl pending culture results 06/08/2024 Patient is evaluated today he is postoperative day #1 ray amputation of the right 5th toe. He removed the wound vac. It will be put back on to continuous suction. He continues on insulin pump although reports significant nausea and unable to tolerate much diet at this time. He has also been hiccuping for the last 4 days and unable to stop. Wound culture showing enterobacter cloacae complex with resistance to multiple drugs. He continues on IV meropenem and oral flagyl with ID following closely. 06/09/2024 Patient is seen in follow-up today postop day 2 amputation of the right fifth toe with Dr. Luu vascular surgery. Infectious disease following and maintained on meropenem along with Flagyl and will discuss regarding further a ntibiotic recommendations once cultures have finalized. Patient will also require a wound VAC which will require insurance authorization and social work following awaiting prescription from vascular surgery to submit for authorization on wound VAC. Patient will be going to infusion center and will likely continue on IV Invanz for 4 weeks. Patient does have a PICC line at this time. 06/10/2024 Patient is seen in follow-up today 06/11/2024 Patient evaluated today resting in bed. Has no acute complaints. States pain is controlled. He has been on regular diet and tolerating with no further reports of nausea. Continues on the thorazine for hiccups which are improved. Infectious disease following closely and patient will continue IV meropenem in the hospital with IV invanz on discharge. He is currently pending insurance authorization for the wound vac. Review of Systems Constitutional: Denied any fatigue denied any fever. Cardio vascular: denied any chest pain, palpitations Gastrointestinal: reports nausea, no vomiting, diarrhea Pulmonary: Denied any shortness of breath cough Neurologic denied any new focal deficits All inpatient medications were reviewed and appropriate changes in these medications as dictated in the interval history and assessment and plan. PHYSICAL EXAMINATION: GENERAL: The patient is alert and oriented x3, not in any acute distress. Well developed, thin built, appears older than stated age HEENT: Pupils are round and equally reacting to light. EOMI. No scleral icterus. No conjunctival pallor. Normocephalic, atraumatic. No pharyngeal erythema. No thyromegaly. CARDIOVASCULAR: S1 and S2 present. No murmurs, rubs, or gallops. PULMONARY: Chest is clear to auscultation, no wheezing or crackles. ABDOMEN: Soft, nontender, nondistended, normoactive bowel sounds. No palpable organomegaly. MUSCULOSKELETAL: No joint swelling or deformity. EXTREMITIES: No cyanosis, clubbing, or pedal edema. NEUROLOGICAL: Gross neurological examination did not reveal any focal deficits. SKIN: No rashes. right 5th toe amputation dressing in place. Assessment: Osteomyelitis of the right fifth metatarsal secondary to diabetic foot ulcer, s/p I&D on 04/23. cultures growing enterobacter MDRO. status post operative day #4 right fifth toe amputation. Insulin-dependent diabetes mellitus, type I with hypoglycemia Hiccups, improving Nausea Major depressive disorder Hypertension Neuropathy Migraine Allergic rhinitis Diabetic gastroparesis History of asthma GI prophylaxis DVT prophylaxis Full Code Plan: Continue IV and pO antibiotics per ID. Patient does have a PICC line and will continue on IV Invanz for 4 weeks on discharge Wound vac orders in place to continuous suction and awaiting insurance authorization for wound VAC on discharge, remains pending at this time Patient is heel weight bearing and postop shoe has been ordered Clear liquid diet, advance as tolerated per patient Continue antiemetics Monitor blood glucose Continue normal saline at 75 mls/hr. Social work following arranging IV antibiotics outpatient and will continue 4 weeks of IV Invanz 1 gram per ID recommendations. Vascular surgery to redress the wound and evaluate and will need wound VAC on discharge. Patient requires insurance authorization for wound VAC which was submitted today Will discuss with other consultations regarding discharge planning, possibly in the next 24 to 48 hours if wound vac is approved The impression and plan of care has been dictated by Gabriela Hassan Nurse Practitioner as directed. Dr. Muriel MD I have performed a history and physical examination and medical decision making of this patient, discussed the same with the dictator, and agree with the dictators assessment and plan as written, documented as a scribe. Based on total visit time, I have performed more than 50% of this visit. Objective - Vital Signs Vital signs: Vital Signs Temp 97.9 F 06/11/24 08:00 Pulse 83 06/11/24 08:00 Resp 15 06/11/24 08:00 BP 113/73 06/11/24 08:00 Pulse Ox 93 L 06/11/24 08:00 FiO2 Intake & Output 06/10/24 06/11/24 06/11/24 18:59 06:59 18:59 Intake Total 236 Output Total 2440 300 Balance -2204 -300 Weight 75.75 kg Intake: Oral 236 Output: Urine 2440 300 Other: Voiding Method Toilet Toilet Urinal Urinal - Labs CBC & Chem 7: 06/11/24 06:03 06/11/24 06:03 Labs: Abnormal Lab Results - Last 24 Hours (Table) 02/06/10/24 06/11/24 Range/Units 17:16 20:00 05:48 WBC (4.50-10.00) X 10*3/uL RBC (4.40-5.60) X 10*6/uL Hgb (13.0-17.0) g/dL Hct (39.6-50.0) % Neutrophils # (1.80-7.70) X 10*3/uL Eosinophils # (0.04-0.35) X 10*3/uL BUN (9.0-27.0) mg/dL BUN/Creatinine Ratio (12.00-20.00) Ratio Glucose (70-110) mg/dL POC Glucose (mg/dL) 111 H 279 H 157 H (70-110) mg/dL 06/11/24 06/11/24 06/11/24 Range/Units 06:03 06:03 11:58 WBC 3.56 L (4.50-10.00) X 10*3/uL RBC 4.11 L (4.40-5.60) X 10*6/uL Hgb 12.8 L (13.0-17.0) g/dL Hct 38.4 L (39.6-50.0) % Neutrophils # 0.94 L (1.80-7.70) X 10*3/uL Eosinophils # 0.40 H (0.04-0.35) X 10*3/uL BUN 8.3 L (9.0-27.0) mg/dL BUN/Creatinine Ratio 10.38 L (12.00-20.00) Ratio Glucose 149 H (70-110) mg/dL POC Glucose (mg/dL) 141 H (70-110) mg/dL Microbiology - Last 24 Hours (Table) 06/05/24 00:51 Blood Culture - Final Blood Assessment and Plan Time with Patient: Less than 30
[2024-06-12 05:22] LABS: Glucose,Whole Blood 196 mg/dL (70-110)
[2024-06-12 12:19] LABS: Glucose,Whole Blood 285 mg/dL (70-110)
--- NOTE | 2024-06-12 15:20 | P.PN ---
Subjective Progress Note Date: 06/12/24 Principal diagnosis: Reason for follow-up is right diabetic foot infection/osteomyelitis Patient is a 38-year-old male with past medical history significant for hypertension type 2 diabetes mellitus patient has been dealing with a wound on the right foot lateral border at the base of the fifth toe with underlying osteomyelitis for the patient was getting outpatient IV and by therapy presenting the hospital with worsening swelling and discoloration to the right foot lateral border after he did develop a blister with the patient try to drain itself. Patient is status post right fifth toe ray amputation and application wound VAC on 06/07/2024. On today's evaluation that is 06/12/2024, Patient is afebrile patient is currently on room air and denies having any shortness of breath, the patient denies any chest pain or cough, the patient denies any nausea vomiting did not have any abdominal pain and no diarrhea pain to the right foot is currently controlled. No new lab has been obtained today Objective - Vital Signs Vital signs: Vital Signs Temp 97.8 F 06/12/24 08:00 Pulse 75 06/12/24 08:00 Resp 15 06/12/24 08:00 BP 111/70 06/12/24 08:00 Pulse Ox 95 06/12/24 08:00 FiO2 Intake & Output 06/11/24 06/12/24 06/12/24 18:59 06:59 18:59 Intake Total 118 236 Balance 118 236 Intake: Oral 118 236 Other: Voiding Method Toilet Toilet Toilet Urinal Urinal Urinal # Voids 3 1 - Exam GENERAL DESCRIPTION: Middle-age male lying in bed in no distress RESPIRATORY SYSTEM: Unlabored breathing , decreased breath sounds at bases HEART: S1 S2 regular rate and rhythm , ABDOMEN: Soft , no tenderness EXTREMITIES: Right foot wound is currently covered with a wound VAC - Labs CBC & Chem 7: 06/11/24 06:03 06/11/24 06:03 Labs: Abnormal Lab Results - Last 24 Hours (Table) 06/11/24 06/11/24 06/12/24 Range/Units 17:13 19:57 05:20 POC Glucose (mg/dL) 232 H 326 H 196 H (70-110) mg/dL 06/12/24 Range/Units 12:18 POC Glucose (mg/dL) 285 H (70-110) mg/dL Assessment and Plan (1) Diabetic foot infection Current Visit: Yes Status: Acute Code(s): E11.628 - TYPE 2 DIABETES MELLITUS WITH OTHER SKIN COMPLICATIONS; L08.9 - LOCAL INFECTION OF THE SKIN AND SUBCUTANEOUS TISSUE, UNSP SNOMED Code(s): 898194069 (2) Diabetic ulcer of right foot Current Visit: Yes Status: Acute Code(s): E11.621 - TYPE 2 DIABETES MELLITUS WITH FOOT ULCER; L97.519 - NON-PRS CHRONIC ULCER OTH PRT RIGHT FOOT W UNSP SEVERITY SNOMED Code(s): 232688880 (3) Foot osteomyelitis, right Current Visit: Yes Status: Acute Code(s): M86.9 - OSTEOMYELITIS, UNSPECIFIED SNOMED Code(s): 5631601581634014 (4) Allergy to multiple antibiotics Current Visit: No Status: Acute Code(s): Z88.1 - ALLERGY STATUS TO OTHER ANTIBIOTIC AGENTS SNOMED Code(s): 108122540 Plan: 1patient presented to hospital with worsening wound to the right foot lateral border in this patient who was diagnosed with an osteomyelitis beginning of April he with a culture positive for multiple pathogen and was receiving outpatient IV antibiotic therapy as well as Flagyl patient did have a noncompliance as he did not follow-up in the office last week now presenting to the hospital with worsening wound started after he did develop a blister which he tried to puncture himself patient more likely has had osteomyelitis failing medical therapy. 2MRI of the right foot suggestive of osteomyelitis but no evidence of any abscess, patient is status post right fifth toe amputation by vascular surgery 3right foot culture growing drug-resistant Enterobacter, Blood culture negative 4patient is currently being treated meropenem 1 g every 8 hours plan is to transition to IV Invanz on discharge, waiting for insurance authorization Dictation was produced using [employer] dictation software. please excuse any grammatical, word or spelling errors. Time with Patient: Less than 30
[2024-06-12 17:25] LABS: Glucose,Whole Blood 298 mg/dL (70-110)
[2024-06-12 20:01] LABS: Glucose,Whole Blood 301 mg/dL (70-110)
--- NOTE | 2024-06-12 21:09 | P.PN ---
Subjective Progress Note Date: 06/12/24 Patient is a 38 year old male with past medical history of insulin dependent diabetes mellitus type 1, diabetic retinopathy, diabetic kidney disease, DKA, hypertension presented to the ED with right foot wound.. Patient recently discharged from the hospital for similar problem. He was discharged home on Daptomycin, Rocephin and oral flagyl. Presents for similar complaint of his left foot pinky toe with new discoloration. Patient denies any other complaint He denies smoking alcohol or illicit drugs Vitals reviewed and stable Labs including CBC, INR, BMP, LFT and troponin were unremarkable. Foot x-ray: Left metatarsal showing medial displacement of the fifth phalanx at the metatarsal phalangeal joint EKG showing sinus rhythm at [address]-T changes Currently he is on clindamycin and levofloxacin and normal saline at 75 mL/h 06/06 Patient is still treated for his infection in the left diabetic left foot wound with surrounding cellulitis. Patient had MRI of the foot today, I reviewed the result by myself, patient has evidence of osteomyelitis of the fifth metatarsal bone as well as over the fifth first proximal phalanx. Also patient has extensive surrounding cellulitis and soft tissue swelling. Pain controlled. Antibiotics was adjusted to IV vancomycin, IV cefepime and p.o. Flagyl He is on normal saline 75 mL/h Vascular surgery team are planning for debridement of his infected tissue. 06/07 Patient denies any new symptoms today His sugar was low overnight and this afternoon. Patient was made n.p.o. because he is going for the procedure. However patient kept his insulin pump running, we asked the patient to stop his insulin pump. Also will place the patient on D5 normal saline at 75 mL/h Patient evaluated by vascular surgery team and they recommended amputation of the fifth toe along fifth metatarsal bone In the meantime patient remains on IV antibiotic cefepime, IV vancomycin and oral Flagyl pending culture results 06/08/2024 Patient is evaluated today he is postoperative day #1 ray amputation of the right 5th toe. He removed the wound vac. It will be put back on to continuous suction. He continues on insulin pump although reports significant nausea and unable to tolerate much diet at this time. He has also been hiccuping for the last 4 days and unable to stop. Wound culture showing enterobacter cloacae complex with resistance to multiple drugs. He continues on IV meropenem and oral flagyl with ID following closely. 06/09/2024 Patient is seen in follow-up today postop day 2 amputation of the right fifth toe with Dr. Luu vascular surgery. Infectious disease following and maintained on meropenem along with Flagyl and will discuss regarding further a ntibiotic recommendations once cultures have finalized. Patient will also require a wound VAC which will require insurance authorization and social work following awaiting prescription from vascular surgery to submit for authorization on wound VAC. Patient will be going to infusion center and will likely continue on IV Invanz for 4 weeks. Patient does have a PICC line at this time. 06/10/2024 Patient is seen in follow-up today 06/11/2024 Patient evaluated today resting in bed. Has no acute complaints. States pain is controlled. He has been on regular diet and tolerating with no further reports of nausea. Continues on the thorazine for hiccups which are improved. Infectious disease following closely and patient will continue IV meropenem in the hospital with IV invanz on discharge. He is currently pending insurance authorization for the wound vac. 06/12/2024 Patient is evaluated today in follow up on the medical floor patient has no acute complaints at this time. Wound vac in place to the right amputation site. Plan for IV invanz on discharge and patient remains on IV meropenem while in patient. He continues with episodes of hiccuping, although states the thorazine has been helping. Renal function remains WNL. Review of Systems Constitutional: Denied any fatigue denied any fever. Cardio vascular: denied any chest pain, palpitations Gastrointestinal: reports nausea, no vomiting, diarrhea Pulmonary: Denied any shortness of breath cough Neurologic denied any new focal deficits All inpatient medications were reviewed and appropriate changes in these medications as dictated in the interval history and assessment and plan. PHYSICAL EXAMINATION: GENERAL: The patient is alert and oriented x3, not in any acute distress. Well developed, thin built, appears older than stated age HEENT: Pupils are round and equally reacting to light. EOMI. No scleral icterus. No conjunctival pallor. Normocephalic, atraumatic. No pharyngeal erythema. No thyromegaly. CARDIOVASCULAR: S1 and S2 present. No murmurs, rubs, or gallops. PULMONARY: Chest is clear to auscultation, no wheezing or crackles. ABDOMEN: Soft, nontender, nondistended, normoactive bowel sounds. No palpable organomegaly. MUSCULOSKELETAL: No joint swelling or deformity. EXTREMITIES: No cyanosis, clubbing, or pedal edema. NEUROLOGICAL: Gross neurological examination did not reveal any focal deficits. SKIN: No rashes. right 5th toe amputation dressing in place. Assessment: Osteomyelitis of the right fifth metatarsal secondary to diabetic foot ulcer, s/p I&D on 04/23. cultures growing enterobacter MDRO. status post operative day #4 right fifth toe amputation. Insulin-dependent diabetes mellitus, type I with hypoglycemia Hiccups, improving Nausea Major depressive disorder Hypertension Neuropathy Migraine Allergic rhinitis Diabetic gastroparesis History of asthma GI prophylaxis DVT prophylaxis Full Code Plan: Continue IV and pO antibiotics per ID. Patient does have a PICC line and will continue on IV Invanz for 4 weeks on discharge Wound vac orders in place to continuous suction and awaiting insurance authorization for wound VAC on discharge, remains pending at this time Patient is heel weight bearing and postop shoe has been ordered Clear liquid diet, advance as tolerated per patient Continue antiemetics Monitor blood glucose Continue normal saline at 75 mls/hr. Social work following arranging IV antibiotics outpatient and will continue 4 weeks of IV Invanz 1 gram per ID recommendations. Vascular surgery to redress the wound and evaluate and will need wound VAC on discharge. Patient requires insurance authorization for wound VAC which was submitted today Will discuss with other consultations regarding discharge planning, possibly in the next 24 to 48 hours if wound vac is approved The impression and plan of care has been dictated by Gabriela Hassan Nurse Practitioner as directed. Dr. Muriel MD I have performed a history and physical examination and medical decision making of this patient, discussed the same with the dictator, and agree with the di ctators assessment and plan as written, documented as a scribe. Based on total visit time, I have performed more than 50% of this visit. Objective - Vital Signs Vital signs: Vital Signs Temp 98 F 06/12/24 19:03 Pulse 87 06/12/24 19:03 Resp 16 06/12/24 19:03 BP 129/72 06/12/24 19:03 Pulse Ox 95 06/12/24 19:03 FiO2 Intake & Output 06/12/24 06/12/24 06/13/24 06:59 18:59 06:59 Intake Total 236 Balance 236 Intake: Oral 236 Other: Voiding Method Toilet Toilet Urinal Urinal # Voids 1 - Labs CBC & Chem 7: 06/11/24 06:03 06/11/24 06:03 Labs: Abnormal Lab Results - Last 24 Hours (Table) 06/12/24 06/12/24 06/12/24 Range/Units 05:20 12:18 17:23 POC Glucose (mg/dL) 196 H 285 H 298 H (70-110) mg/dL 06/12/24 Range/Units 20:00 POC Glucose (mg/dL) 301 H (70-110) mg/dL Assessment and Plan Time with Patient: Less than 30
[2024-06-13 02:54] LABS: Glucose,Whole Blood 336 mg/dL (70-110)
[2024-06-13] MEDS: INSPUCOR MISCELLANE PRN (03:01)
[2024-06-13 05:40] LABS: Glucose,Whole Blood 360 mg/dL (70-110)
[2024-06-13 08:23] VITALS: BP 97/67; PULSE 73; RESP 15; TEMP 97.8
[2024-06-13 12:20] LABS: Glucose,Whole Blood 297 mg/dL (70-110)
[2024-06-13] MEDS: ERTAPENEM 1 GM in SODIUM CHLORIDE 0.9% 50 ML IVPB STA (13:39)
--- NOTE | 2024-06-13 14:45 | P.PN ---
Subjective Progress Note Date: 06/13/24 Principal diagnosis: Reason for follow-up is right diabetic foot infection/osteomyelitis Patient is a 38-year-old male with past medical history significant for hypertension type 2 diabetes mellitus patient has been dealing with a wound on the right foot lateral border at the base of the fifth toe with underlying osteomyelitis for the patient was getting outpatient IV and by therapy presenting the hospital with worsening swelling and discoloration to the right foot lateral border after he did develop a blister with the patient try to drain itself. Patient is status post right fifth toe ray amputation and application wound VAC on 06/07/2024. On today's evaluation that is 06/13/2024, patient has been afebrile, patient is breathing comfortably and is currently on room air, patient denies having any significant cough no chest pain, patient denies nausea vomiting or diarrhea and no abdominal pain pain to the right foot is currently controlled. No new lab has been obtained today Objective - Vital Signs Vital signs: Vital Signs Temp 97.3 F L 06/13/24 01:30 Pulse 86 06/13/24 01:30 Resp 16 06/13/24 01:30 BP 119/83 06/13/24 01:30 Pulse Ox 97 06/13/24 01:30 FiO2 Intake & Output 06/12/24 06/13/24 06/13/24 18:59 06:59 18:59 Intake Total 236 Output Total 2200 Balance 236 -2200 Intake: Oral 236 Output: Urine 1800 Emesis 400 Other: Voiding Method Toilet Toilet Toilet Urinal Urinal Urinal # Emeses 1 - Exam GENERAL DESCRIPTION: Middle-age male lying in bed in no distress RESPIRATORY SYSTEM: Unlabored breathing , decreased breath sounds at bases HEART: S1 S2 regular rate and rhythm , ABDOMEN: Soft , no tenderness EXTREMITIES: Right foot wound is currently covered with a wound VAC - Labs CBC & Chem 7: 06/11/24 06:03 06/11/24 06:03 Labs: Abnormal Lab Results - Last 24 Hours (Table) 06/12/24 06/12/24 06/12/24 Range/Units 12:18 17:23 20:00 POC Glucose (mg/dL) 285 H 298 H 301 H (70-110) mg/dL 06/13/24 06/13/24 Range/Units 02:52 05:38 POC Glucose (mg/dL) 336 H 360 H (70-110) mg/dL Assessment and Plan (1) Diabetic foot infection Status: Acute Code(s): E11.628 - TYPE 2 DIABETES MELLITUS WITH OTHER SKIN COMPLICATIONS; L08.9 - LOCAL INFECTION OF THE SKIN AND SUBCUTANEOUS TISSUE, UNSP SNOMED Code(s): 275735939 (2) Diabetic ulcer of right foot Status: Acute Code(s): E11.621 - TYPE 2 DIABETES MELLITUS WITH FOOT ULCER; L97.519 - NON-PRS CHRONIC ULCER OTH PRT RIGHT FOOT W UNSP SEVERITY SNOMED Code(s): 655657913 (3) Foot osteomyelitis, right Status: Acute Code(s): M86.9 - OSTEOMYELITIS, UNSPECIFIED SNOMED Code(s): 4567024395880146 (4) Allergy to multiple antibiotics Status: Acute Code(s): Z88.1 - ALLERGY STATUS TO OTHER ANTIBIOTIC AGENTS SNOMED Code(s): 259560992 Plan: 1patient presented to hospital with worsening wound to the right foot lateral border in this patient who was diagnosed with an osteomyelitis beginning of April he with a culture positive for multiple pathogen and was receiving outpatient IV antibiotic therapy as well as Flagyl patient did have a noncompliance as he did not follow-up in the office last week now presenting to the hospital with worsening wound started after he did develop a blister which he tried to puncture himself patient more likely has had osteomyelitis failing medical therapy. 2MRI of the right foot suggestive of osteomyelitis but no evidence of any abscess, patient is status post right fifth toe amputation by vascular surgery 3right foot culture growing drug-resistant Enterobacter, Blood culture negative 4patient will get a dose of Invanz 1 g daily before discharge and continue with the outpatient IV Invanz in the outpatient setting and close outpatient follow-up Dictation was produced using [employer] dictation software. please excuse any grammatical, word or spelling errors. Time with Patient: Less than 30
== END 2024-06-13 14:27 | disposition home health service (06) | DRG 314 ==
LOC: EC 00:05 → 6NMEDSUR 00:37
PROVIDERS: ADMIT Hospitalist; ATTEND Hospitalist
PROC: 0Y6Y0Z0 Detachment at Left 5th Toe, Complete, Open Approach (ICD-10-PCS; principal; 2024-06-09)
DX: E10.69 Type 1 diabetes mellitus with other specified complication (principal); E10.52 Type 1 diabetes mellitus with diabetic peripheral angiopathy with gangrene; I96 Gangrene, not elsewhere classified; M86.8X7 Other osteomyelitis, ankle and foot; E10.43 Type 1 diabetes mellitus with diabetic autonomic (poly)neuropathy; E10.42 Type 1 diabetes mellitus with diabetic polyneuropathy; E10.621 Type 1 diabetes mellitus with foot ulcer; I10 Essential (primary) hypertension; J45.909 Unspecified asthma, uncomplicated; L97.524 Non-pressure chronic ulcer of other part of left foot with necrosis of bone; B96.89 Other specified bacterial agents as the cause of diseases classified elsewhere; K31.84 Gastroparesis; G43.909 Migraine, unspecified, not intractable, without status migrainosus; Z96.41 Presence of insulin pump (external) (internal); Z16.30 Resistance to unspecified antimicrobial drugs; Z79.4 Long term (current) use of insulin; Z87.891 Personal history of nicotine dependence; Z56.0 Unemployment, unspecified; Z79.899 Other long term (current) drug therapy; Z88.1 Allergy status to other antibiotic agents; Z88.0 Allergy status to penicillin; Z86.14 Personal history of Methicillin resistant Staphylococcus aureus infection
CPT/HCPCS: 80048; 80053; 80202; 82565; 83605; 83735; 83880; 84100; 84484; 85025; 85610; 85652; 85730; 86140; 87040; 87070; 87075; 87077; 87186; 87205; 93005; 94640; 96365; 96366; 96375; 99284